=== PATIENT | female | born 1965 | race Caucasian/White ===

== ENCOUNTER 2016-09-06 19:14 | Emergency (ER) | payer MEDICAID ==
[~2016-09-06] VITALS: Ht 165.1 cm; Wt 34.5 kg
[2016-09-06 19:25] VITALS: BP 106/38
[2016-09-06 20:02] LABS: Urine Bilirubin Negative (Negative); Urine Blood Negative /uL (Negative); Urine Color Yellow (Yellow); Urine Glucose Normal (Normal); Urine Ketone Negative (Negative); Urine Nitrite Negative (Negative); Urine RBC <1 /hpf (0 - 4); Urine Urobilinogen Normal (Negative)
[2016-09-06 20:20] LABS: Basophils # (auto) 0.1 uL; Basophils % (auto) 0.6 % (0.0-2.0); DEFINITIVE VIEW TRANSMISSION; Eosinophils # (auto) 0.1 uL; Eosinophils % (auto) 0.8 % (0.0-7.0); Hematocrit 40.1 % (36.0-46.0); Hemoglobin 13.1 g/dL (12.2-16.2); Lymphocytes # (auto) 7.9 uL; Lymphocytes % (auto) 54.7 % (10.0-50.0); Mean Corpuscular Hemoglobin 30.8 pg (28.0-32.0); Mean Corpuscular Hgb Conc. 32.7 g/dL (32.0-36.0); Mean Platelet Volume 8.2 fL (7.4-10.4); Monocytes # (auto) 1.1 uL; Neutrophils # (auto) 5.2 uL; Neutrophils % (auto) 35.9 % (37.0-80.0); Platelet Count (auto) 423 10^3/uL (140-450); Red Cell Distribution Width 14.8 % (11.6-16.0); White Blood Cell 14.4 10^3/uL (4.4-10.8)
[2016-09-06 20:23] LABS: INR 0.91 (0.9-1.15); Partial Thromboplastin Time 28.2 sec (22.64-33.71); Prothrombin Time 9.8 sec (9.37-12.3)
[2016-09-06 20:30] LABS: Anion Gap 10 (5-15); Aspartate Aminotransferase 16 U/L (15-37); BUN/Creatinine Ratio 13.7; Blood Urea Nitrogen 14 mg/dL (7-18); Calcium 8.8 mg/dL (8.5-10.1); Carbon Dioxide 29 mmol/L (21-32); Chloride 107 mmol/L (98-107); GFR African American 73 mL/min; GFR Non-African American 60 mL/min; Glucose 94 mg/dL (74-106); Magnesium 2.3 mg/dL (1.6-2.6); Potassium 4.2 mmol/L (3.5-5.1); Sodium 146 mmol/L (136-145)
[2016-09-06 20:35] LABS: Alkaline Phosphatase 138 U/L (45-117); Bilirubin, Total < 0.1 mg/dL (0.2-1.0); Total Protein 7.8 g/dL (6.4-8.2)
== END 2016-09-07 00:07 | disposition left against medical advice (07) ==
LOC: ER 19:14
DX: R07.9 Chest pain, unspecified (principal); Z53.21 Procedure and treatment not carried out due to patient leaving prior to being seen by health care provider
CPT/HCPCS: 36415; 71020; 80053; 81001; 83735; 84443; 84484; 84702; 85025; 85610; 85730; 93005

== ENCOUNTER 2018-05-12 10:26 | Emergency (ER) | payer MEDICAID ==
[~2018-05-12] VITALS: Ht 165.1 cm; Wt 40.8 kg
[2018-05-12 10:38] VITALS: BP 113/67
[2018-05-12 11:30] LABS: Urine Bacteria MOD /hpf (None Seen); Urine Blood Negative /uL (Negative); Urine Hyaline Cast FEW /lpf (0 - 2); Urine Mucus FEW (None Seen); Urine Specific Gravity 1.014 (1.001-1.035); Urine WBC 67 /hpf (0 - 5)
== END 2018-05-12 12:47 | disposition home or self-care (01) ==
LOC: ER 10:26
DX: J44.9 Chronic obstructive pulmonary disease, unspecified (principal); N39.0 Urinary tract infection, site not specified; I48.91 Unspecified atrial fibrillation; F17.200 Nicotine dependence, unspecified, uncomplicated; Z88.0 Allergy status to penicillin; Z59.0 Homelessness
CPT/HCPCS: 71046; 72100; 81001

== ENCOUNTER 2018-06-14 10:15 | Inpatient (IN) | payer MEDICAID ==
[~2018-06-14] VITALS: Ht 152.4 cm; Wt 40.6 kg
[2018-06-14] MEDS ORDERED: ALBUTEROL SULF 2.5 MG/0.5ML(0.5%) NEB SOLN HHN ONE (10:30)
[2018-06-14] MEDS ORDERED: methylPREDNISolone SOD SUCC 125 MG/2 ML VL IV ONE (10:30)
[2018-06-14] MEDS ORDERED: IPRATROPIUM BROM 0.5 MG/2.5ML INH SOL HHN ONE (10:30)
[2018-06-14] MEDS ORDERED: ACETAMINOPHEN 500 MG TAB PO PRN (11:30)
[2018-06-14] MEDS ORDERED: NITROGLYCERIN 0.4 MG SL TAB SL PRN (11:30)
[2018-06-14] MEDS ORDERED: HYDROcodone-ACET 5/325MG TAB PO PRN (11:30)
[2018-06-14] MEDS ORDERED: OSELTAMIVIR 75 MG CAP PO ONE (11:30)
[2018-06-14] MEDS ORDERED: LACTULOSE 20Gm/30ML SOLN PO PRN (11:30)
[2018-06-14] MEDS ORDERED: MORPHINE SULFATE 10 MG/ML INJ 1ML SDV IV PRN ×2 (11:30)
[2018-06-14] MEDS ORDERED: LORazepam 0.5 MG TAB PO PRN (11:30)
[2018-06-14] MEDS ORDERED: PROMETHAZINE HCL 25 MG/ML 1ML IV PRN (11:30)
[2018-06-14] MEDS ORDERED: TEMAZEPAM 15 MG CAP PO PRN (11:30)
[2018-06-14] MEDS ORDERED: ALBUTEROL SULF 2.5 MG/0.5ML(0.5%) NEB SOLN NEB PRN (11:30)
[2018-06-14 11:31] LABS: Basophils # (auto) 0.1 uL; Basophils % (auto) 0.4 % (0.0-2.0); Eosinophils # (auto) 0 uL; Hematocrit 33.1 % (36.0-46.0); Hemoglobin 10.4 g/dL (12.2-16.2); Lymphocytes # (auto) 1.5 uL; Lymphocytes % (auto) 8.3 % (10.0-50.0); Mean Corpuscular Hemoglobin 30.6 pg (28.0-32.0); Mean Corpuscular Hgb Conc. 31.3 g/dL (32.0-36.0); Mean Corpuscular Volume 97.8 fL (80.0-100.0); Monocytes # (auto) 0.9 uL; Monocytes % (auto) 4.7 % (0.0-12.0); Neutrophils % (auto) 86.6 % (37.0-80.0); Platelet Count (auto) 387 10^3/uL (140-450); Red Blood Cells 3.39 10^6/uL (4.0-5.20); Red Cell Distribution Width 15.4 % (11.8-14.3); White Blood Cell 18.4 10^3/uL (4.4-10.8)
[2018-06-14 11:45] LABS: Albumin 2.7 g/dL (3.4-5.0); Calcium 8.4 mg/dL (8.5-10.1); Magnesium 2.5 mg/dL (1.6-2.6); Potassium 4.3 mmol/L (3.5-5.1)
[2018-06-14 11:48] LABS: Lactic Acid w/Reflex 2.6 mmol/L (0.4-2.0)
[2018-06-14 11:52] LABS: BUN/Creatinine Ratio 27.7; Bilirubin, Total 0.7 mg/dL (0.2-1.0); Total Protein 7.2 g/dL (6.4-8.2)
[2018-06-14] MEDS: IPRATROPIUM BROM 0.5 MG/2.5ML INH SOL NEB SCH ×2 (12:04→19:12)
[2018-06-14] MEDS: ALBUTEROL SULF 2.5 MG/0.5ML(0.5%) NEB SOLN NEB SCH ×2 (12:04→19:12)
[2018-06-14] MEDS: SODIUM CHLORIDE 0.9% 1,000 ML IV SCH (12:33)
[2018-06-14] MEDS: DOXYCYCLINE 100MG/250ML 250 ML IV SCH ×2 (12:34→23:53)
[2018-06-14] MEDS: methylPREDNISolone SOD SUCC 40 MG/ML VL IV SCH ×3 (12:34→23:54)
--- NOTE | 2018-06-14 18:30 | NUR ---
Telemetry admit from ER FLACA FLAHERTY admitted to Telemetry unit after SBAR received. Patient oriented to Laura Blue RN primary RN, unit, room, bed, and unit policies regarding patient care and visiting hours. Patient now on continuous telemetry monitoring, tele box # [id number] and telemetry reading on arrival to unit is sinus tach 104. Patient placed on bedside oxygen, weighed by bedscale and encouraged to call if they need something. All questions and concerns addressed, patient verbalized understanding. Note:
--- NOTE | 2018-06-14 18:35 | NUR ---
called lab to send a influenza swab.
[2018-06-14 20:00] VITALS: BP 86/66
[2018-06-14] MEDS ORDERED: OSELTAMIVIR 75 MG CAP PO SCH (22:00)
[2018-06-14 22:14] VITALS: BP 96/53
[2018-06-15] MEDS: ALBUTEROL SULF 2.5 MG/0.5ML(0.5%) NEB SOLN NEB SCH ×4 (01:37→19:24)
[2018-06-15] MEDS: IPRATROPIUM BROM 0.5 MG/2.5ML INH SOL NEB SCH ×4 (01:37→19:24)
[2018-06-15] MEDS ORDERED: PNEUMOCOCCAL VACC POLYS 25 MCG/0.5 ML VIAL IM ONE (03:45)
[2018-06-15] MEDS ORDERED: INFLUENZA QUAD 2018-2019 0.5 ML SYRG IM ONE (03:45)
--- NOTE | 2018-06-15 04:25 | NUR ---
Collected influenza A&B, MRSA sample and sent to lab via bullet.
[2018-06-15 05:00] VITALS: BP 89/52
[2018-06-15] MEDS: SODIUM CHLORIDE 0.9% 1,000 ML IV SCH ×3 (05:20→17:21)
[2018-06-15] MEDS: methylPREDNISolone SOD SUCC 40 MG/ML VL IV SCH ×4 (06:13→23:44)
--- NOTE | 2018-06-15 06:20 | NUR ---
collected respiratory culture and sent to lab via bullet.
[2018-06-15 09:00] VITALS: BP 95/50
[2018-06-15] MEDS: ENOXAPARIN SOD 40 MG/0.4 ML SYRINGE SC SCH (10:00)
[2018-06-15] MEDS: DOXYCYCLINE 100MG/250ML 250 ML IV SCH ×2 (11:20→23:43)
--- NOTE | 2018-06-15 11:42 | NUR ---
IV removal/ insertion IV access obtained, via clean sterile technique by inserting 22 gauge catheter at the right forearm after 2 attempts. IV secured properly. No trauma to site. Patient tolerated well. IV removal IV to left arm DC'd with clean sterile technique, catheter fully intact. Pressure dressing applied to site. Patient tolerated well.
--- NOTE | 2018-06-15 12:30 | NUR ---
Decreased liter flow to 2 l/m Nasal cannula.
[2018-06-15 13:00] VITALS: BP 85/51
--- NOTE | 2018-06-15 16:50 | NUR ---
PATIENT ROUNDS PATIENT SITTING IN BED NO S/S OF DISTRESS OR SHORTNESS OF BREATH. PATIENT DENIES FEELING LIGHTHEADED OR DIZZY. PATIENT EDUCATED AND INSTRUCTED TO PRESS CALL LIGHT IF FEELING LIGHTHEADED OR DIZZY. PATIENT EDUCATED ON GETTING UP SLOWLY FROM BED. WILL CONTINUE TO MONITOR.
[2018-06-15 17:00] VITALS: BP 84/51
--- NOTE | 2018-06-15 18:39 | NUR ---
OXYGEN HUMIDIFIER APPLIED TO OXYGEN DUE TO PATIENT STATING HER NOSE BLEEDS WHEN SHE BLOWS IT. NO S/S OF DISTRESS NOTED AT THIS TIME.
--- NOTE | 2018-06-15 19:12 | NUR ---
CLOSING NOTE SHIFT REPORT GIVEN TO LEASE PURCHASE DRIVER NURSEALEXIA. PATIENT IN BED, CALL LIGHT WITHIN REACH. NO S/S OF DISTRESS. IV PATENT AND RUNNING, OXYGEN ON.
[2018-06-15 21:30] VITALS: BP 86/58
--- NOTE | 2018-06-15 23:45 | NUR ---
patient wanted to take shower tomorrow educated patient about reason to a doctor's order first. will inform to day shift RN
[2018-06-16] MEDS: IPRATROPIUM BROM 0.5 MG/2.5ML INH SOL NEB SCH ×4 (01:04→19:17)
[2018-06-16] MEDS: ALBUTEROL SULF 2.5 MG/0.5ML(0.5%) NEB SOLN NEB SCH ×4 (01:04→19:17)
[2018-06-16 05:00] VITALS: BP 89/57
[2018-06-16] MEDS: methylPREDNISolone SOD SUCC 40 MG/ML VL IV SCH ×3 (06:03→21:49)
[2018-06-16] MEDS: SODIUM CHLORIDE 0.9% 1,000 ML IV SCH ×2 (06:03→16:48)
[2018-06-16 07:34] LABS: Basophils # (auto) 0 uL; Eosinophils # (auto) 0 uL; Hemoglobin 7.8 g/dL (12.2-16.2); Mean Corpuscular Hgb Conc. 32.5 g/dL (32.0-36.0); Mean Corpuscular Volume 94.7 fL (80.0-100.0)
[2018-06-16 07:38] LABS: Basophils % (auto) 0.2 % (0.0-2.0); Lymphocytes % (auto) 4.4 % (10.0-50.0); Mean Corpuscular Hemoglobin 30.7 pg (28.0-32.0); Monocytes # (auto) 0.7 uL; Neutrophils % (auto) 92.4 % (37.0-80.0); Platelet Count (auto) 328 10^3/uL (140-450); Red Blood Cells 2.54 10^6/uL (4.0-5.20); Red Cell Distribution Width 14.8 % (11.8-14.3); White Blood Cell 21.7 10^3/uL (4.4-10.8)
[2018-06-16 07:41] LABS: BUN/Creatinine Ratio 26.5; Calcium 8.5 mg/dL (8.5-10.1); Potassium 4.1 mmol/L (3.5-5.1)
--- NOTE | 2018-06-16 08:00 | NUR ---
Patient requesting to shower. Patient educated and given materials for bed bath due to security monitor. Patient verbalized understanding. Will inform MD of patient request.
[2018-06-16 09:00] VITALS: BP 85/54
[2018-06-16] MEDS: ENOXAPARIN SOD 40 MG/0.4 ML SYRINGE SC SCH (09:32)
--- NOTE | 2018-06-16 10:47 | NUR ---
PATIENT UPSET MEAL DOES NOT INCLUDE COLA. DIETARY REQUEST SENT.
[2018-06-16] MEDS: DOXYCYCLINE 100MG/250ML 250 ML IV SCH ×2 (12:10→23:29)
--- NOTE | 2018-06-16 12:16 | NUR ---
Patient agitated she has not received soda. Patient stating she has a caffeine headache. Patient offered coffee. Patient states she doesn't drink coffee. Patient offered medication for her headache. Patient refusing medication at this time. Patient stating "the lunch tray is going to go flying" if her order is not correct and there is no soda with lunch. Charge nurse aware. Will continue to monitor. Addendum: 06/16/18 at 1225 by KALEE JETT RN Patient stating her blood pressure is low because she is not eating salt. Patient educated on cardiac diet. Will continue to monitor.
[2018-06-16 12:31] VITALS: BP 92/66
--- NOTE | 2018-06-16 13:01 | NUR ---
Patient spoke with dietary about meal orders and soda. Patient given sandwich and satisfied at this time. Will continue to monitor.
[2018-06-16 16:43] VITALS: BP 89/44
--- NOTE | 2018-06-16 18:51 | NUR ---
CLOSING NOTE PATIENT IN BED, LOW LOCK POSITION, CALL LIGHT WITHIN REACH. IV PATENT AND RUNNING. OXYGEN ON. STOOL COLLECTION MATERIALS AT BEDSIDE, INFORMED SALVAGE WINDER AND INSPECTOR NURSE, PATIENT, AND OUTDOOR ADVERTISING LEASING AGENT OF ORDER FRO STOOL SAMPLE. NO S/S OF DISTRESS, PAIN, OR SHORTNESS OF BREATH.
--- NOTE | 2018-06-16 21:40 | NUR ---
Educated patient about way to collect STOOL OCCULT Blood. Patient verbalized understanding. Patient reported she is not able to provide stool sample at this time.
[2018-06-16 21:52] VITALS: BP 99/57
[2018-06-17] VITALS (7 sets, daily range): BP systolic 92–114; BP diastolic 52–68
[2018-06-17] MEDS: ALBUTEROL SULF 2.5 MG/0.5ML(0.5%) NEB SOLN NEB SCH ×4 (00:31→19:38)
[2018-06-17] MEDS: IPRATROPIUM BROM 0.5 MG/2.5ML INH SOL NEB SCH ×4 (00:31→19:38)
[2018-06-17] MEDS: SODIUM CHLORIDE 0.9% 1,000 ML IV SCH ×2 (06:08→07:13)
--- NOTE | 2018-06-17 06:45 | NUR ---
IV insertion IV access obtained, via clean sterile technique by inserting 22 gauge catheter at Left Forearm after 1 attempt. IV secured properly. No trauma to site. Patient tolerated well.
[2018-06-17 06:53] LABS: Basophils # (auto) 0 uL; Basophils % (auto) 0.1 % (0.0-2.0); Eosinophils # (auto) 0 uL; Red Cell Distribution Width 14.9 % (11.8-14.3)
[2018-06-17 06:56] LABS: Hematocrit 25.4 % (36.0-46.0); Hemoglobin 8.2 g/dL (12.2-16.2); Mean Corpuscular Hemoglobin 30.8 pg (28.0-32.0); Mean Corpuscular Hgb Conc. 32.4 g/dL (32.0-36.0); Monocytes # (auto) 0.6 uL; Monocytes % (auto) 4.4 % (0.0-12.0); Neutrophils # (auto) 12.1 uL; Neutrophils % (auto) 88.5 % (37.0-80.0); Platelet Count (auto) 356 10^3/uL (140-450); Red Blood Cells 2.67 10^6/uL (4.0-5.20); White Blood Cell 13.7 10^3/uL (4.4-10.8)
[2018-06-17 07:12] LABS: BUN/Creatinine Ratio 23.4; Calcium 8.4 mg/dL (8.5-10.1); Potassium 4.2 mmol/L (3.5-5.1)
--- NOTE | 2018-06-17 07:42 | NUR ---
opening patient asleep, in bed, bed in lowest position, call light within reach. No distress noted at this time Blood culture negative resp cult positive Occult blood still pending for patient to give sample influenza a & b negative mrsa negative awaiting SS consult, possible home o2 needed per patient current troponin 0.299 lactic acid 2.5 trending down wbc 13.7 trending down hgb 8.2 trending up phosphatase 148 albumin 2.7
[2018-06-17] MEDS: ENOXAPARIN SOD 40 MG/0.4 ML SYRINGE SC SCH (10:00)
[2018-06-17] MEDS: methylPREDNISolone SOD SUCC 40 MG/ML VL IV SCH ×2 (10:13→23:43)
[2018-06-17] MEDS: DOXYCYCLINE 100MG/250ML 250 ML IV SCH ×2 (11:05→23:44)
--- NOTE | 2018-06-17 14:27 | NUR ---
FAXED ORDER, H&P LABS, MEDS ABG FOR MED NEB AND 02 TO [facility] PH # [phone] AND [facility] FAX # [phone]
--- NOTE | 2018-06-17 17:50 | NUR ---
VIKTOR CALLING SHE GAVE ME A PHONE NUMBER FOR THE COMPANY USED "[email or web address]" TO CALL AND CHECK ON THE STATUS. [phone]
--- NOTE | 2018-06-17 17:58 | NUR ---
CALLING [facility] TALKED TO TECH, SHE NOTED THEY WILL NEED AUTHORIZATION PRIOR FROM [facility]. THEY WILL NEED THIS PRIOR TO DELIVERING ANY MEDICAL EQUIPMENT NEEDED
--- NOTE | 2018-06-17 18:03 | NUR ---
TALKING TO FLOWERS SALESPERSON LIFT MECHANIC TALKED TO VIKTOR, SHE NOTED THERE WAS A TECHNICAL ISSUE MOST LIKELY WITH THE PORTAL WITH [facility], THE AUTHORIZATION WILL MOST LIKELY OCCUR TOMORROW AND TO LET THE MD KNOW, WHAT THE ISSUE WAS.
--- NOTE | 2018-06-17 18:55 | NUR ---
closing patient in bed, bed in lowest position, call light within reach. no distress noted at this time awaiting authorization from [facility] for the medical equipment will endorse care to noc nurse
--- NOTE | 2018-06-17 19:20 | NUR ---
Opening Shift Note Assumed care of patient, awake and alert. No S/S of distress/SOB or pain. Instructed on POC and to call for assist PRN, will continue to monitor for changes. Pt talkative, anxious about poss discharge though told by 3 different health team persons that discharge is not occuring tonight. Bed in low position with HOB in [place]. O2 per n/c at 3lpm. Pt avoiding care of self though within her power, ex. covering self with linens. Call light at her side.
[2018-06-18] MEDS: IPRATROPIUM BROM 0.5 MG/2.5ML INH SOL NEB SCH ×3 (00:46→11:31)
[2018-06-18] MEDS: ALBUTEROL SULF 2.5 MG/0.5ML(0.5%) NEB SOLN NEB SCH ×3 (00:46→11:31)
--- NOTE | 2018-06-18 02:30 | NUR ---
Pt c/o pain in L ant arm after IV abx. completely infused. Sl puffiness proximal to site, but strong blood return. This RN suggested and supplied hot pack to place on IV site in case from irritation of IV abx. Pt resistant desiring that PIV be discontinued. PIV discontinued in entirety. Pt ady well. 22g cath used to start new PIV on post R hand. Pt ayd well.
[2018-06-18 04:57] VITALS: BP 111/66
[2018-06-18] MEDS: SODIUM CHLORIDE 0.9% 1,000 ML IV SCH ×2 (06:44→08:58)
--- NOTE | 2018-06-18 07:40 | NUR ---
opening patient in bed, asleep, bed in lowest position, call light within reach. No distress noted at this time. Will f/u with morning assessment. Will await case management for authorization for the medical equipment, prior to discharging the patient.
--- NOTE | 2018-06-18 08:00 | NUR ---
stool sample sent to lab, for occult blood
--- NOTE | 2018-06-18 08:40 | NUR ---
SHILPA IRELAND STUDIO CONTROL OPERATOR
[2018-06-18] MEDS: methylPREDNISolone SOD SUCC 40 MG/ML VL IV SCH (08:57)
[2018-06-18] MEDS: ENOXAPARIN SOD 40 MG/0.4 ML SYRINGE SC SCH (08:58)
[2018-06-18 09:00] VITALS: BP 115/74
--- NOTE | 2018-06-18 09:09 | NUR ---
RECALLED AND REFAXED TO [facility]. SPOKE TO BECCA IN UR AND SHE SAID SHE WILL PROCESS ORDER EVEN THOUGH SHE WAS READING ORDER TO ME THAT I SENT YESTERDAY. SHE WILL CALL ME AND [facility]
[2018-06-18] MEDS: DOXYCYCLINE 100MG/250ML 250 ML IV SCH (11:15)
[2018-06-18 12:53] VITALS: BP 123/81
--- NOTE | 2018-06-18 13:04 | NUR ---
BECCA FROM [facility] CALLED ME BACK AND STATED SHE HAS FAXED AND GAVE AUTH TO [facility] SO [facility] SHOULD BE CONTACTING PT.
--- NOTE | 2018-06-18 13:35 | NUR ---
CALLED [facility] AND TERESO AT [facility] STATED O2 TO BE DELIVERED BETWEEN 1400 AND 1600 HRS TODAY
--- NOTE | 2018-06-18 15:50 | NUR ---
[facility] AND [facility] DID NOT SEND/GET AUTH FOR NEBULIZER. I INFORMED THEM THAT MED NEB MACHINE ON ORDER I FAXED YESTERDAY TO BOTH AGENCIES. I NOW HAVE AUTH FOR NEBULIZER # [id number] AND THIS WAS GIVEN TO [facility] TO VERIFY FOR MACHINE. VERIFIED PTS ADDRESS FOR DELIVERY VIA PRIMARY RN WELL PT'S PHONE #. MED NEB WILL BE DELIVERED TO THE VERIFIED ADDRESS
--- NOTE | 2018-06-18 16:10 | NUR ---
closing Discharge instructions given as ordered. Encourage to follow up with PMD as instructed. All questions and concerns addressed. Patient verbalized understanding. needed vaccines given. IV removed with catheter intact, pressure dressing applied. Telemetry unit returned to ICU. Patient taken to vehicle via wheelchair with all personal belongings, accompanied by staff and friends. No distress noted at time of departure.
== END 2018-06-18 16:10 | disposition home or self-care (01) | DRG 133 ==
LOC: EDBD 10:15 → ER 10:17 → TELE 11:28 → TELE-EAST 18:26
PROVIDERS: ADMIT Internal Medicine; ATTEND Internal Medicine
DX: J96.21 Acute and chronic respiratory failure with hypoxia (principal); N17.0 Acute kidney failure with tubular necrosis; E43 Unspecified severe protein-calorie malnutrition; Z99.81 Dependence on supplemental oxygen; R65.10 Systemic inflammatory response syndrome (SIRS) of non-infectious origin without acute organ dysfunction; J44.1 Chronic obstructive pulmonary disease with (acute) exacerbation; I48.91 Unspecified atrial fibrillation; N18.9 Chronic kidney disease, unspecified; D64.9 Anemia, unspecified; I70.0 Atherosclerosis of aorta; F17.200 Nicotine dependence, unspecified, uncomplicated; Z59.0 Homelessness; Z90.89 Acquired absence of other organs; Z88.0 Allergy status to penicillin; Z23 Encounter for immunization
CPT/HCPCS: 36415; 36600; 71045; 80048; 80053; 82270; 82805; 83605; 83735; 83880; 84484; 85025; 87040; 87070; 87081; 87205; 87804; 93005; 94640; 94761; 96361; 96365; 96375; 99291; G0378; J3490

== ENCOUNTER 2020-07-26 18:29 | Inpatient (IN) | payer MEDICAID ==
[~2020-07-26] VITALS: Ht 165.1 cm; Wt 44.4 kg
[2020-07-26] MEDS ORDERED: SUCCINYLCHOLINE CHLORIDE 20 MG/ML 10ML VIAL IV ONE ×2 (18:44→18:45)
[2020-07-26] MEDS ORDERED: ETOMIDATE (2MG/ML) 20ML VIAL IV ONE ×2 (18:44→18:45)
[2020-07-26] MEDS ORDERED: IPRATROPIUM BROM 0.5 MG/2.5ML INH SOL HHN ONE (18:45)
[2020-07-26] MEDS ORDERED: methylPREDNISolone SOD SUCC 125 MG/2 ML VL IV ONE (18:45)
[2020-07-26] MEDS ORDERED: ALBUTEROL SULF 2.5 MG/0.5ML(0.5%) NEB SOLN HHN ONE (18:45)
[2020-07-26] MEDS ORDERED: MIDAZOLAM DRIP 50 mg/50mL 50 ML IV ONE (18:49)
[2020-07-26] MEDS ORDERED: NOREPINEPHRINE 8 MG/250ML KIT 250 ML IV ONE (19:03)
[2020-07-26 19:05] LABS: Basophils # (auto) 0.2 10 ^3/uL (0-0.2); Basophils % (auto) 1.2 % (0.0-2.0); Eosinophils # (auto) 0.8 10 ^3/uL (0-0.8); Eosinophils % (auto) 5.4 % (0.0-7.0); Hematocrit 42.2 % (36.0-46.0); Hemoglobin 13.7 g/dL (12.2-16.2); Lymphocytes # (auto) 5.8 10 ^3/uL (0.4-5.4); Lymphocytes % (auto) 37.6 % (10.0-50.0); Mean Corpuscular Hemoglobin 31.4 pg (28.0-32.0); Mean Corpuscular Hgb Conc. 32.4 g/dL (32.0-36.0); Mean Corpuscular Volume 96.9 fL (80.0-100.0); Monocytes # (auto) 1.2 10 ^3/uL (0-1.3); Monocytes % (auto) 7.9 % (0.0-12.0); Neutrophils # (auto) 7.4 10 ^3/uL (1.6-8.6); Neutrophils % (auto) 47.9 % (37.0-80.0); Nucleated Red Blood Cells % 0.1 %; Red Blood Cells 4.35 10^6/uL (4.0-5.20); Red Cell Distribution Width 14.7 % (11.8-14.3); White Blood Cell 15.5 10^3/uL (4.4-10.8)
[2020-07-26] MEDS: NOREPINEPHRINE 8 MG/250ML KIT 250 ML IV SCH ×2 (19:15→21:30)
[2020-07-26] MEDS: MIDAZOLAM DRIP 50 mg/50mL 50 ML IV SCH ×3 (19:15→21:30)
[2020-07-26] MEDS ORDERED: LIDOCAINE 2% (LOCAL ANESTH.) PF 5ml SDV ONE (19:16)
[2020-07-26 19:33] LABS: Alanine Aminotransferase 22 U/L (13-56); Albumin 3.7 g/dL (3.4-5.0); Anion Gap 5 (5-15); Aspartate Aminotransferase 21 U/L (15-37); BUN/Creatinine Ratio 5.1; Blood Urea Nitrogen 5 mg/dL (7-18); Calcium 9.1 mg/dL (8.5-10.1); Carbon Dioxide 29 mmol/L (21-32); Chloride 106 mmol/L (98-107); GFR African American 75 mL/min; GFR Non-African American 62 mL/min; Glucose 199 mg/dL (74-106); Potassium 4.5 mmol/L (3.5-5.1); Sodium 140 mmol/L (136-145)
[2020-07-26 19:38] LABS: Alkaline Phosphatase 159 U/L (45-117); Bilirubin, Total 0.3 mg/dL (0.2-1.0); Total Protein 7.5 g/dL (6.4-8.2)
[2020-07-26] MEDS ORDERED: SODIUM BICARBONATE 8.4 % INJ 50ML VIAL IV ONE (20:45)
[2020-07-26] MEDS ORDERED: MORPHINE SULFATE INJECTION 2 MG/ML SYRG IV PRN (21:30)
[2020-07-26] MEDS ORDERED: NITROGLYCERIN 0.4 MG SL TAB SL PRN (21:30)
[2020-07-26] MEDS: methylPREDNISolone SOD SUCC 125 MG/2 ML VL IV SCH (22:00)
[2020-07-26 22:09] LABS: Basophils # (auto) 0 10 ^3/uL (0-0.2); Basophils % (auto) 0.2 % (0.0-2.0); Eosinophils # (auto) 0.1 10 ^3/uL (0-0.8); Eosinophils % (auto) 0.5 % (0.0-7.0); Hematocrit 37.1 % (36.0-46.0); Hemoglobin 12.2 g/dL (12.2-16.2); Lymphocytes # (auto) 1.8 10 ^3/uL (0.4-5.4); Lymphocytes % (auto) 10.7 % (10.0-50.0); Mean Corpuscular Hemoglobin 31.9 pg (28.0-32.0); Mean Corpuscular Volume 96.7 fL (80.0-100.0); Monocytes # (auto) 0.5 10 ^3/uL (0-1.3); Monocytes % (auto) 3.2 % (0.0-12.0); Neutrophils # (auto) 14.1 10 ^3/uL (1.6-8.6); Neutrophils % (auto) 85.4 % (37.0-80.0); Nucleated Red Blood Cells % 0.1 %; Red Blood Cells 3.84 10^6/uL (4.0-5.20); Red Cell Distribution Width 14.4 % (11.8-14.3); White Blood Cell 16.4 10^3/uL (4.4-10.8)
[2020-07-26 22:16] LABS: Urine Bacteria FEW /hpf (None Seen); Urine Blood TRACE /uL (Negative); Urine Hyaline Cast FEW /lpf (0 - 2); Urine Specific Gravity 1.005 (1.001-1.035); Urine WBC <1 /hpf (0 - 5)
[2020-07-26 22:26] LABS: Albumin 3.3 g/dL (3.4-5.0); Calcium 8.3 mg/dL (8.5-10.1)
[2020-07-26 22:30] LABS: BUN/Creatinine Ratio 5.8; Bilirubin, Total 0.6 mg/dL (0.2-1.0); Total Protein 6.9 g/dL (6.4-8.2)
[2020-07-27] VITALS (94 sets, daily range): BP systolic 84–159; BP diastolic 46–99
[2020-07-27 02:20] LABS: Basophils # (auto) 0 10 ^3/uL (0-0.2); Basophils % (auto) 0.1 % (0.0-2.0); Eosinophils # (auto) 0 10 ^3/uL (0-0.8); Hematocrit 36.3 % (36.0-46.0); Hemoglobin 12.5 g/dL (12.2-16.2); Lymphocytes # (auto) 1.2 10 ^3/uL (0.4-5.4); Lymphocytes % (auto) 7.4 % (10.0-50.0); Mean Corpuscular Hemoglobin 32.7 pg (28.0-32.0); Mean Corpuscular Hgb Conc. 34.3 g/dL (32.0-36.0); Mean Corpuscular Volume 95.4 fL (80.0-100.0); Monocytes # (auto) 0.3 10 ^3/uL (0-1.3); Monocytes % (auto) 2.2 % (0.0-12.0); Neutrophils # (auto) 14.2 10 ^3/uL (1.6-8.6); Neutrophils % (auto) 90.3 % (37.0-80.0); Red Blood Cells 3.81 10^6/uL (4.0-5.20); Red Cell Distribution Width 14.1 % (11.8-14.3); White Blood Cell 15.8 10^3/uL (4.4-10.8)
[2020-07-27 02:40] LABS: Albumin 3.2 g/dL (3.4-5.0); BUN/Creatinine Ratio 7.1; Calcium 8.9 mg/dL (8.5-10.1)
[2020-07-27 02:43] LABS: Bilirubin, Total 0.5 mg/dL (0.2-1.0); Total Protein 6.7 g/dL (6.4-8.2)
[2020-07-27] MEDS: methylPREDNISolone SOD SUCC 125 MG/2 ML VL IV SCH ×3 (06:19→21:16)
[2020-07-27] MEDS ORDERED: fentaNYL Drip 2500mCg/250mlNS 250 ML IV ONE (07:48)
[2020-07-27] MEDS: fentaNYL Drip 2500mCg/250mlNS 250 ML IV SCH (08:19)
[2020-07-27] MEDS: PANTOPRAZOLE 40 MG/10 ML VIAL INJ IV SCH (09:28)
[2020-07-27] MEDS: cefTRIAXone 1GM/50ML D5W 50 ML IV SCH (09:29)
[2020-07-27] MEDS: ENOXAPARIN SOD 40 MG/0.4 ML SYRINGE SC SCH (09:29)
[2020-07-27] MEDS: AZITHROMYCIN 500MG/ 250ML 250 ML IV SCH (09:29)
[2020-07-27] MEDS: PROPOFOL 100 ML IV SCH ×2 (12:51→18:49)
[2020-07-27] MEDS: NOREPINEPHRINE 8 MG/250ML KIT 250 ML IV SCH ×2 (17:27→21:16)
[2020-07-27] MEDS: MIDAZOLAM DRIP 50 mg/50mL 50 ML IV SCH (17:30)
[2020-07-28] VITALS (103 sets, daily range): BP systolic 97–128; BP diastolic 47–74
[2020-07-28 02:41] LABS: Basophils # (auto) 0 10 ^3/uL (0-0.2); Basophils % (auto) 0.2 % (0.0-2.0); Eosinophils # (auto) 0 10 ^3/uL (0-0.8); Eosinophils % (auto) 0.1 % (0.0-7.0); Hematocrit 36.9 % (36.0-46.0); Hemoglobin 12.3 g/dL (12.2-16.2); Lymphocytes # (auto) 1.9 10 ^3/uL (0.4-5.4); Mean Corpuscular Hemoglobin 31.4 pg (28.0-32.0); Mean Corpuscular Hgb Conc. 33.2 g/dL (32.0-36.0); Mean Corpuscular Volume 94.5 fL (80.0-100.0); Monocytes # (auto) 1.1 10 ^3/uL (0-1.3); Monocytes % (auto) 4.7 % (0.0-12.0); Neutrophils # (auto) 20.9 10 ^3/uL (1.6-8.6); Red Cell Distribution Width 13.9 % (11.8-14.3)
[2020-07-28 02:58] LABS: Albumin 3.1 g/dL (3.4-5.0); Calcium 9.2 mg/dL (8.5-10.1); Potassium 4.5 mmol/L (3.5-5.1)
[2020-07-28 03:00] LABS: BUN/Creatinine Ratio 14.1
[2020-07-28 03:03] LABS: Bilirubin, Total 0.2 mg/dL (0.2-1.0); Total Protein 6.4 g/dL (6.4-8.2)
[2020-07-28] MEDS: methylPREDNISolone SOD SUCC 125 MG/2 ML VL IV SCH ×3 (05:57→21:21)
[2020-07-28] MEDS: fentaNYL Drip 2500mCg/250mlNS 250 ML IV SCH ×2 (08:00→17:35)
[2020-07-28] MEDS: PANTOPRAZOLE 40 MG/10 ML VIAL INJ IV SCH (09:47)
[2020-07-28] MEDS: cefTRIAXone 1GM/50ML D5W 50 ML IV SCH (09:48)
[2020-07-28] MEDS: AZITHROMYCIN 500MG/ 250ML 250 ML IV SCH (09:49)
[2020-07-28] MEDS: ENOXAPARIN SOD 40 MG/0.4 ML SYRINGE SC SCH (09:50)
[2020-07-28] MEDS: MIDAZOLAM DRIP 50 mg/50mL 50 ML IV SCH ×2 (19:00→21:01)
[2020-07-28] MEDS: NOREPINEPHRINE 8 MG/250ML KIT 250 ML IV SCH ×2 (19:09)
[2020-07-28] MEDS: QUEtiapine FUMARATE 25 MG TAB PO SCH (21:23)
[2020-07-29] VITALS (95 sets, daily range): BP systolic 82–151; BP diastolic 36–91
[2020-07-29 02:33] LABS: Basophils # (auto) 0 10 ^3/uL (0-0.2); Basophils % (auto) 0.2 % (0.0-2.0); Eosinophils # (auto) 0 10 ^3/uL (0-0.8); Hematocrit 36.4 % (36.0-46.0); Hemoglobin 12.1 g/dL (12.2-16.2); Lymphocytes # (auto) 1.5 10 ^3/uL (0.4-5.4); Lymphocytes % (auto) 6.8 % (10.0-50.0); Mean Corpuscular Hemoglobin 31.3 pg (28.0-32.0); Mean Corpuscular Hgb Conc. 33.4 g/dL (32.0-36.0); Mean Corpuscular Volume 93.9 fL (80.0-100.0); Monocytes # (auto) 0.9 10 ^3/uL (0-1.3); Monocytes % (auto) 4.1 % (0.0-12.0); Neutrophils # (auto) 20.1 10 ^3/uL (1.6-8.6); Neutrophils % (auto) 88.9 % (37.0-80.0); Nucleated Red Blood Cells % 0.1 %; Red Blood Cells 3.87 10^6/uL (4.0-5.20); Red Cell Distribution Width 14.2 % (11.8-14.3); White Blood Cell 22.6 10^3/uL (4.4-10.8)
[2020-07-29 02:55] LABS: Albumin 3.1 g/dL (3.4-5.0); BUN/Creatinine Ratio 23.5; Calcium 8.9 mg/dL (8.5-10.1); Potassium 4.8 mmol/L (3.5-5.1)
[2020-07-29 02:57] LABS: Bilirubin, Total 0.2 mg/dL (0.2-1.0); Total Protein 6.4 g/dL (6.4-8.2)
[2020-07-29] MEDS: methylPREDNISolone SOD SUCC 125 MG/2 ML VL IV SCH ×3 (05:20→21:43)
[2020-07-29] MEDS: PROPOFOL 100 ML IV SCH (07:37)
[2020-07-29] MEDS: PANTOPRAZOLE 40 MG/10 ML VIAL INJ IV SCH (07:49)
[2020-07-29] MEDS: cefTRIAXone 1GM/50ML D5W 50 ML IV SCH (07:49)
[2020-07-29] MEDS: QUEtiapine FUMARATE 25 MG TAB PO SCH ×2 (07:54→21:43)
[2020-07-29] MEDS: ENOXAPARIN SOD 40 MG/0.4 ML SYRINGE SC SCH (07:57)
[2020-07-29] MEDS: AZITHROMYCIN 500MG/ 250ML 250 ML IV SCH (10:27)
[2020-07-29] MEDS: MIDAZOLAM DRIP 50 mg/50mL 50 ML IV SCH ×2 (19:00→19:52)
[2020-07-29] MEDS: NOREPINEPHRINE 8 MG/250ML KIT 250 ML IV SCH ×2 (19:15→19:52)
[2020-07-29] MEDS ORDERED: guaiFENesin 200 MG/10 ML UD GT PRN (21:00)
[2020-07-30] VITALS (31 sets, daily range): BP systolic 96–138; BP diastolic 48–78
[2020-07-30] MEDS: methylPREDNISolone SOD SUCC 125 MG/2 ML VL IV SCH ×3 (05:10→22:36)
[2020-07-30 06:04] LABS: Basophils # (auto) 0.1 10 ^3/uL (0-0.2); Basophils % (auto) 0.3 % (0.0-2.0); Eosinophils # (auto) 0 10 ^3/uL (0-0.8); Eosinophils % (auto) 0.1 % (0.0-7.0); Hematocrit 35.3 % (36.0-46.0); Hemoglobin 11.8 g/dL (12.2-16.2); Lymphocytes # (auto) 1.4 10 ^3/uL (0.4-5.4); Lymphocytes % (auto) 7.6 % (10.0-50.0); Mean Corpuscular Hemoglobin 31.8 pg (28.0-32.0); Mean Corpuscular Hgb Conc. 33.5 g/dL (32.0-36.0); Mean Corpuscular Volume 94.8 fL (80.0-100.0); Monocytes # (auto) 1.4 10 ^3/uL (0-1.3); Monocytes % (auto) 7.2 % (0.0-12.0); Neutrophils % (auto) 84.8 % (37.0-80.0); Red Blood Cells 3.72 10^6/uL (4.0-5.20); Red Cell Distribution Width 13.7 % (11.8-14.3); White Blood Cell 18.9 10^3/uL (4.4-10.8)
[2020-07-30 06:22] LABS: Albumin 3.1 g/dL (3.4-5.0); Calcium 8.6 mg/dL (8.5-10.1); Potassium 4.9 mmol/L (3.5-5.1)
[2020-07-30 06:25] LABS: BUN/Creatinine Ratio 33.7; Bilirubin, Total 0.3 mg/dL (0.2-1.0); Total Protein 6.5 g/dL (6.4-8.2)
[2020-07-30] MEDS: PROPOFOL 100 ML IV SCH (08:00)
[2020-07-30] MEDS: fentaNYL Drip 2500mCg/250mlNS 250 ML IV SCH (08:00)
[2020-07-30] MEDS: ALBUTEROL SULF 2.5 MG/0.5ML(0.5%) NEB SOLN NEB SCH ×4 (08:03→22:15)
[2020-07-30] MEDS: IPRATROPIUM BROM 0.5 MG/2.5ML INH SOL NEB SCH ×4 (08:03→22:15)
[2020-07-30] MEDS: PANTOPRAZOLE 40 MG/10 ML VIAL INJ IV SCH (09:53)
[2020-07-30] MEDS: AZITHROMYCIN 500MG/ 250ML 250 ML IV SCH (09:53)
[2020-07-30] MEDS: QUEtiapine FUMARATE 25 MG TAB PO SCH ×2 (09:59→22:37)
[2020-07-30] MEDS: ENOXAPARIN SOD 40 MG/0.4 ML SYRINGE SC SCH (10:00)
[2020-07-30] MEDS: cefTRIAXone 1GM/50ML D5W 50 ML IV SCH (10:08)
[2020-07-30] MEDS ORDERED: NICOTINE 7MG/24HR TOPICAL PATCH TD ONE (11:45)
[2020-07-30] MEDS ORDERED: BECL80AE11 INH (18:09)
[2020-07-30] MEDS ORDERED: UMEC1INH INH (18:10)
[2020-07-30] MEDS: BUDESONIDE (INHALATION) 0.5 MG/2 ML NEB NEB SCH (22:15)
[2020-07-31] MEDS: IPRATROPIUM BROM 0.5 MG/2.5ML INH SOL NEB SCH ×6 (02:07→22:28)
[2020-07-31] MEDS: ALBUTEROL SULF 2.5 MG/0.5ML(0.5%) NEB SOLN NEB SCH ×6 (02:07→22:28)
[2020-07-31 05:10] VITALS: BP 94/58
[2020-07-31 05:48] LABS: Basophils # (auto) 0 10 ^3/uL (0-0.2); Basophils % (auto) 0.1 % (0.0-2.0); Eosinophils # (auto) 0 10 ^3/uL (0-0.8); Hematocrit 34.9 % (36.0-46.0); Hemoglobin 11.6 g/dL (12.2-16.2); Lymphocytes % (auto) 8.1 % (10.0-50.0); Mean Corpuscular Hemoglobin 31.1 pg (28.0-32.0); Mean Corpuscular Hgb Conc. 33.2 g/dL (32.0-36.0); Mean Corpuscular Volume 93.6 fL (80.0-100.0); Monocytes # (auto) 0.5 10 ^3/uL (0-1.3); Neutrophils % (auto) 87.8 % (37.0-80.0); Red Blood Cells 3.72 10^6/uL (4.0-5.20); Red Cell Distribution Width 13.7 % (11.8-14.3); White Blood Cell 12.5 10^3/uL (4.4-10.8)
[2020-07-31] MEDS: methylPREDNISolone SOD SUCC 125 MG/2 ML VL IV SCH ×3 (06:00→21:21)
[2020-07-31] MEDS: BUDESONIDE (INHALATION) 0.5 MG/2 ML NEB NEB SCH ×2 (06:13→18:13)
[2020-07-31 06:25] LABS: Potassium 4.3 mmol/L (3.5-5.1)
[2020-07-31 06:30] LABS: BUN/Creatinine Ratio 33.3
[2020-07-31 06:33] LABS: Bilirubin, Total 0.3 mg/dL (0.2-1.0)
[2020-07-31 09:00] VITALS: BP 95/53
[2020-07-31] MEDS: PANTOPRAZOLE 40 MG/10 ML VIAL INJ IV SCH (09:21)
[2020-07-31] MEDS: ENOXAPARIN SOD 40 MG/0.4 ML SYRINGE SC SCH (09:21)
[2020-07-31] MEDS: NICOTINE 7MG/24HR TOPICAL PATCH TD SCH (09:23)
[2020-07-31] MEDS: QUEtiapine FUMARATE 25 MG TAB PO SCH ×2 (09:23→21:21)
[2020-07-31] MEDS: AZITHROMYCIN 500MG/ 250ML 250 ML IV SCH (09:23)
[2020-07-31] MEDS: cefTRIAXone 1GM/50ML D5W 50 ML IV SCH (09:24)
[2020-07-31 13:00] VITALS: BP 109/60
[2020-07-31 16:58] VITALS: BP 111/75
[2020-07-31 22:00] VITALS: BP 109/66
[2020-08-01] MEDS: ALBUTEROL SULF 2.5 MG/0.5ML(0.5%) NEB SOLN NEB SCH ×6 (02:38→21:39)
[2020-08-01] MEDS: IPRATROPIUM BROM 0.5 MG/2.5ML INH SOL NEB SCH ×6 (02:38→21:39)
[2020-08-01 05:00] VITALS: BP 106/61
[2020-08-01 05:57] LABS: Basophils # (auto) 0 10 ^3/uL (0-0.2); Basophils % (auto) 0.1 % (0.0-2.0); Eosinophils # (auto) 0 10 ^3/uL (0-0.8); Hematocrit 35.1 % (36.0-46.0); Hemoglobin 11.4 g/dL (12.2-16.2); Lymphocytes # (auto) 1.2 10 ^3/uL (0.4-5.4); Lymphocytes % (auto) 10.3 % (10.0-50.0); Mean Corpuscular Hemoglobin 30.8 pg (28.0-32.0); Mean Corpuscular Hgb Conc. 32.6 g/dL (32.0-36.0); Mean Corpuscular Volume 94.6 fL (80.0-100.0); Monocytes # (auto) 0.6 10 ^3/uL (0-1.3); Monocytes % (auto) 5.1 % (0.0-12.0); Neutrophils # (auto) 9.7 10 ^3/uL (1.6-8.6); Neutrophils % (auto) 84.5 % (37.0-80.0); Nucleated Red Blood Cells % 0.1 %; Red Blood Cells 3.71 10^6/uL (4.0-5.20); Red Cell Distribution Width 13.8 % (11.8-14.3); White Blood Cell 11.5 10^3/uL (4.4-10.8)
[2020-08-01] MEDS: methylPREDNISolone SOD SUCC 125 MG/2 ML VL IV SCH ×3 (06:06→22:05)
[2020-08-01 06:13] LABS: Albumin 3.1 g/dL (3.4-5.0); Calcium 9.2 mg/dL (8.5-10.1); Potassium 4.2 mmol/L (3.5-5.1)
[2020-08-01 06:16] LABS: BUN/Creatinine Ratio 44.7; Bilirubin, Total 0.4 mg/dL (0.2-1.0); Total Protein 6.1 g/dL (6.4-8.2)
[2020-08-01 09:00] VITALS: BP 109/74
[2020-08-01] MEDS: BUDESONIDE (INHALATION) 0.5 MG/2 ML NEB NEB SCH ×2 (09:38→18:36)
[2020-08-01] MEDS: QUEtiapine FUMARATE 25 MG TAB PO SCH ×2 (10:00→22:00)
[2020-08-01] MEDS: ENOXAPARIN SOD 40 MG/0.4 ML SYRINGE SC SCH (10:00)
[2020-08-01] MEDS: PANTOPRAZOLE 40 MG/10 ML VIAL INJ IV SCH (10:00)
[2020-08-01] MEDS: cefTRIAXone 1GM/50ML D5W 50 ML IV SCH (10:16)
[2020-08-01] MEDS: AZITHROMYCIN 500MG/ 250ML 250 ML IV SCH (10:17)
[2020-08-01] MEDS: NICOTINE 7MG/24HR TOPICAL PATCH TD SCH (10:18)
[2020-08-01 13:00] VITALS: BP 121/75
[2020-08-01 17:00] VITALS: BP 99/68
[2020-08-01 22:00] VITALS: BP 104/63
[2020-08-02] MEDS: ALBUTEROL SULF 2.5 MG/0.5ML(0.5%) NEB SOLN NEB SCH ×4 (01:47→13:52)
[2020-08-02] MEDS: IPRATROPIUM BROM 0.5 MG/2.5ML INH SOL NEB SCH ×4 (01:47→13:52)
[2020-08-02 05:50] VITALS: BP 99/71
[2020-08-02] MEDS: BUDESONIDE (INHALATION) 0.5 MG/2 ML NEB NEB SCH (06:01)
[2020-08-02] MEDS: methylPREDNISolone SOD SUCC 125 MG/2 ML VL IV SCH ×2 (06:20→14:00)
[2020-08-02 08:49] VITALS: BP 111/79
[2020-08-02 08:55] LABS: Basophils # (auto) 0 10 ^3/uL (0-0.2); Basophils % (auto) 0.1 % (0.0-2.0); Eosinophils # (auto) 0 10 ^3/uL (0-0.8); Hematocrit 34.7 % (36.0-46.0); Hemoglobin 11.5 g/dL (12.2-16.2); Lymphocytes # (auto) 1.3 10 ^3/uL (0.4-5.4); Lymphocytes % (auto) 9.1 % (10.0-50.0); Mean Corpuscular Hemoglobin 31.2 pg (28.0-32.0); Mean Corpuscular Hgb Conc. 33.1 g/dL (32.0-36.0); Mean Corpuscular Volume 94.4 fL (80.0-100.0); Monocytes # (auto) 0.8 10 ^3/uL (0-1.3); Monocytes % (auto) 5.4 % (0.0-12.0); Neutrophils # (auto) 11.8 10 ^3/uL (1.6-8.6); Neutrophils % (auto) 85.4 % (37.0-80.0); Nucleated Red Blood Cells % 0.1 %; Red Blood Cells 3.67 10^6/uL (4.0-5.20); Red Cell Distribution Width 13.6 % (11.8-14.3); White Blood Cell 13.8 10^3/uL (4.4-10.8)
[2020-08-02 09:24] LABS: Albumin 3.2 g/dL (3.4-5.0); BUN/Creatinine Ratio 44.9; Bilirubin, Total 0.5 mg/dL (0.2-1.0); Calcium 9.1 mg/dL (8.5-10.1); Total Protein 6.1 g/dL (6.4-8.2)
[2020-08-02] MEDS: cefTRIAXone 1GM/50ML D5W 50 ML IV SCH (09:56)
[2020-08-02] MEDS: PANTOPRAZOLE 40 MG/10 ML VIAL INJ IV SCH (09:57)
[2020-08-02] MEDS: QUEtiapine FUMARATE 25 MG TAB PO SCH (09:57)
[2020-08-02] MEDS: ENOXAPARIN SOD 40 MG/0.4 ML SYRINGE SC SCH (09:57)
[2020-08-02] MEDS: NICOTINE 7MG/24HR TOPICAL PATCH TD SCH (09:57)
[2020-08-02] MEDS: AZITHROMYCIN 500MG/ 250ML 250 ML IV SCH (10:00)
[2020-08-02 12:53] VITALS: BP 107/73
[2020-08-02 13:18] VITALS: BP 107/73
== END 2020-08-02 16:59 | disposition home health service (06) | DRG 720 ==
LOC: EDBD 18:29 → ER 18:32 → TELE 18:33 → DOU IN ICU 23:53 → TELE-CENTR 07-30 15:10
PROVIDERS: ADMIT Internal Medicine; ATTEND Internal Medicine
PROC: 0BH17EZ Insertion of Endotracheal Airway into Trachea, Via Natural or Artificial Opening (ICD-10-PCS; principal; 2020-07-26)
PROC: 5A1945Z Respiratory Ventilation, 24-96 Consecutive Hours (ICD-10-PCS; 2020-07-26)
PROC: 06HM33Z Insertion of Infusion Device into Right Femoral Vein, Percutaneous Approach (ICD-10-PCS; 2020-08-02)
DX: A41.9 Sepsis, unspecified organism (principal); R65.21 Severe sepsis with septic shock; J18.9 Pneumonia, unspecified organism; J96.22 Acute and chronic respiratory failure with hypercapnia; J96.21 Acute and chronic respiratory failure with hypoxia; E11.22 Type 2 diabetes mellitus with diabetic chronic kidney disease; F17.210 Nicotine dependence, cigarettes, uncomplicated; I48.91 Unspecified atrial fibrillation; J43.9 Emphysema, unspecified; I13.0 Hypertensive heart and chronic kidney disease with heart failure and stage 1 through stage 4 chronic kidney disease, or unspecified chronic kidney disease; I50.22 Chronic systolic (congestive) heart failure; Z20.822 Contact with and (suspected) exposure to COVID-19; N18.9 Chronic kidney disease, unspecified; Z79.01 Long term (current) use of anticoagulants; Z81.8 Family history of other mental and behavioral disorders; Z82.49 Family history of ischemic heart disease and other diseases of the circulatory system; Z83.3 Family history of diabetes mellitus; Z87.01 Personal history of pneumonia (recurrent); Z99.81 Dependence on supplemental oxygen
CPT/HCPCS: 31500; 36415; 36556; 36600; 71045; 80053; 81001; 82805; 83605; 83880; 84484; 85025; 85379; 87040; 87070; 87081; 87205; 87426; 92610; 93005; 93306; 94002; 94003; 94640; 96374; 97116; 97163; 97530; 99291; C9113; G0378; J0330; J0696; J2001; J2250; J2704; J7060

== ENCOUNTER 2020-09-08 13:59 | Inpatient (IN) | payer MEDICAID ==
[~2020-09-08] VITALS: Ht 162.6 cm; Wt 38.3 kg
[~2020-09-08 13:59] MED LIST: BECL80AE11 INH; UMEC1INH INH
[2020-09-08 14:43] LABS: Basophils # (auto) 0.1 10 ^3/uL (0-0.2); Basophils % (auto) 1.1 % (0.0-2.0); Eosinophils # (auto) 0.9 10 ^3/uL (0-0.8); Hematocrit 40.1 % (36.0-46.0); Hemoglobin 13.1 g/dL (12.2-16.2); Lymphocytes # (auto) 3.6 10 ^3/uL (0.4-5.4); Lymphocytes % (auto) 31.2 % (10.0-50.0); Mean Corpuscular Hemoglobin 31.4 pg (28.0-32.0); Mean Corpuscular Hgb Conc. 32.6 g/dL (32.0-36.0); Mean Corpuscular Volume 96.3 fL (80.0-100.0); Monocytes % (auto) 8.3 % (0.0-12.0); Neutrophils % (auto) 51.4 % (37.0-80.0); Platelet Count (auto) 312 10^3/uL (140-450); Red Blood Cells 4.16 10^6/uL (4.0-5.20); Red Cell Distribution Width 14.2 % (11.8-14.3); White Blood Cell 11.7 10^3/uL (4.4-10.8)
[2020-09-08 14:58] LABS: INR 0.95 (0.9-1.15); Partial Thromboplastin Time 29.3 sec (23.0-31.2)
[2020-09-08 15:00] LABS: Albumin 3.8 g/dL (3.4-5.0); Anion Gap 5 (5-15); Blood Urea Nitrogen 5 mg/dL (7-18); Calcium 9.2 mg/dL (8.5-10.1); Carbon Dioxide 30 mmol/L (21-32); Chloride 108 mmol/L (98-107); Glucose 102 mg/dL (74-106); Magnesium 2.2 mg/dL (1.6-2.6); Sodium 143 mmol/L (136-145)
[2020-09-08 15:06] LABS: Alanine Aminotransferase 16 U/L (13-56); Alkaline Phosphatase 148 U/L (45-117); Aspartate Aminotransferase 15 U/L (15-37); BUN/Creatinine Ratio 5.7; Bilirubin, Total 0.4 mg/dL (0.2-1.0); GFR African American 86 mL/min; GFR Non-African American 71 mL/min; Total Protein 7.3 g/dL (6.4-8.2)
[2020-09-08] MEDS ORDERED: ALBUTEROL SULF 2.5 MG/0.5ML(0.5%) NEB SOLN HHN ONE (15:15)
[2020-09-08] MEDS ORDERED: IPRATROPIUM BROM 0.5 MG/2.5ML INH SOL HHN ONE (15:15)
[2020-09-08] MEDS ORDERED: methylPREDNISolone SOD SUCC 125 MG/2 ML VL IV ONE (15:15)
[2020-09-08 18:13] LABS: Urine Bacteria NONE SEEN /hpf (None Seen); Urine Blood Negative /uL (Negative); Urine Mucus FEW (None Seen); Urine Specific Gravity 1.005 (1.001-1.035); Urine WBC 8 /hpf (0 - 5)
[2020-09-08] MEDS ORDERED: ONDANSETRON HCL 4 MG/2 ML VIAL IV PRN (19:15)
[2020-09-08] MEDS ORDERED: MORPHINE SULF INJ 2 MG/ML SYRINGE 1ML IV PRN ×2 (19:15)
[2020-09-08] MEDS ORDERED: ACETAMINOPHEN 325 MG TAB PO PRN (19:15)
[2020-09-08] MEDS ORDERED: NITROGLYCERIN 0.4 MG SL TAB SL PRN (19:15)
[2020-09-08] MEDS ORDERED: HYDROcodone-ACET 5/325MG TAB PO PRN (19:15)
[2020-09-08 19:47] VITALS: BP 101/59
[2020-09-08 21:00] VITALS: BP 95/65
[2020-09-08 22:00] VITALS: BP 95/65
[2020-09-08] MEDS ORDERED: IPRATROPIUM BROM 0.5 MG/2.5ML INH SOL NEB SCH (22:00)
[2020-09-08] MEDS: Beclomethasone Dipropionate (Qvar Redihaler) 80 MCG IN SCH (22:00)
[2020-09-08] MEDS ORDERED: ALBUTEROL SULF 2.5 MG/0.5ML(0.5%) NEB SOLN NEB SCH (22:00)
[2020-09-08] MEDS: IPRATROPIUM BROM 0.5 MG/2.5ML INH SOL NEB SCH (22:37)
[2020-09-08] MEDS: ALBUTEROL SULF 2.5 MG/0.5ML(0.5%) NEB SOLN NEB SCH (22:38)
[2020-09-09 05:00] VITALS: BP 101/64
[2020-09-09] MEDS: methylPREDNISolone SOD SUCC 40 MG/ML VL IV SCH ×3 (05:18→23:15)
[2020-09-09] MEDS: ALBUTEROL SULF 2.5 MG/0.5ML(0.5%) NEB SOLN NEB SCH ×4 (07:41→22:00)
[2020-09-09] MEDS: IPRATROPIUM BROM 0.5 MG/2.5ML INH SOL NEB SCH ×4 (07:41→22:00)
[2020-09-09 08:00] VITALS: BP 87/63
[2020-09-09 08:39] VITALS: BP 87/65
[2020-09-09] MEDS: PANTOPRAZOLE 40 MG TAB PO SCH (09:55)
[2020-09-09] MEDS: ENOXAPARIN SOD 40 MG/0.4 ML SYRINGE SC SCH (09:55)
[2020-09-09] MEDS: UMECLIDINIUM BROMIDE 62.5 MCG IN SCH (10:00)
[2020-09-09] MEDS: Beclomethasone Dipropionate (Qvar Redihaler) 80 MCG IN SCH ×2 (10:00→22:00)
[2020-09-09 13:00] VITALS: BP 89/69
[2020-09-09 17:00] VITALS: BP 91/61
[2020-09-09 22:00] VITALS: BP 82/54
[2020-09-10] MEDS ORDERED: IPRATROPIUM BROM 0.5 MG/2.5ML INH SOL NEB PRN (01:15)
[2020-09-10] MEDS ORDERED: ALBUTEROL SULF 2.5 MG/0.5ML(0.5%) NEB SOLN NEB PRN (01:15)
[2020-09-10 05:00] VITALS: BP 104/53
[2020-09-10] MEDS: methylPREDNISolone SOD SUCC 40 MG/ML VL IV SCH (06:14)
[2020-09-10 09:22] VITALS: BP 87/55
[2020-09-10] MEDS: UMECLIDINIUM BROMIDE 62.5 MCG IN SCH (10:00)
[2020-09-10] MEDS: Beclomethasone Dipropionate (Qvar Redihaler) 80 MCG IN SCH (10:00)
[2020-09-10] MEDS: ENOXAPARIN SOD 40 MG/0.4 ML SYRINGE SC SCH ×2 (10:48→10:50)
[2020-09-10] MEDS: PANTOPRAZOLE 40 MG TAB PO SCH (10:48)
[2020-09-10 12:24] VITALS: BP 87/55
== END 2020-09-10 12:45 | disposition home health service (06) | DRG 140 ==
LOC: EDBD 13:59 → ER 13:59 → TELE 19:09 → TELE-EAST 19:55
PROVIDERS: ADMIT Internal Medicine; ATTEND Internal Medicine
DX: J44.1 Chronic obstructive pulmonary disease with (acute) exacerbation (principal); J96.21 Acute and chronic respiratory failure with hypoxia; R64 Cachexia; E44.1 Mild protein-calorie malnutrition; Z99.81 Dependence on supplemental oxygen; Z20.822 Contact with and (suspected) exposure to COVID-19; F17.210 Nicotine dependence, cigarettes, uncomplicated; I10 Essential (primary) hypertension; D72.828 Other elevated white blood cell count; J98.11 Atelectasis; Z71.6 Tobacco abuse counseling; Z68.1 Body mass index [BMI] 19.9 or less, adult; Z88.0 Allergy status to penicillin; Z81.8 Family history of other mental and behavioral disorders; Z82.49 Family history of ischemic heart disease and other diseases of the circulatory system; Z83.3 Family history of diabetes mellitus
CPT/HCPCS: 36415; 36600; 71045; 80053; 81001; 82805; 83605; 83735; 83880; 84484; 85025; 85610; 85730; 87040; 87426; 93005; 94640; G0378

== ENCOUNTER 2022-01-23 08:43 | Emergency (ER) | payer MEDICAID ==
[~2022-01-23] VITALS: Ht 167.6 cm; Wt 140.0 kg
[2022-01-23] MEDS ORDERED: ALBUTEROL SULF 2.5 MG/0.5ML(0.5%) NEB SOLN NEB ONE (09:15)
[2022-01-23] MEDS ORDERED: methylPREDNISolone SOD SUCC 125 MG/2 ML VL IV ONE (09:15)
[2022-01-23] MEDS ORDERED: IPRATROPIUM BROM 0.5 MG/2.5ML INH SOL NEB ONE (09:15)
[2022-01-23 10:09] LABS: Basophils # (auto) 0.1 10 ^3/uL (0-0.2); Basophils % (auto) 1.1 % (0.0-2.0); Eosinophils # (auto) 0.6 10 ^3/uL (0-0.8); Eosinophils % (auto) 6.8 % (0.0-7.0); Hematocrit 40.6 % (36.0-46.0); Hemoglobin 13.5 g/dL (12.2-16.2); Lymphocytes # (auto) 2.1 10 ^3/uL (0.4-5.4); Lymphocytes % (auto) 22.8 % (10.0-50.0); Mean Corpuscular Hemoglobin 31.5 pg (28.0-32.0); Mean Corpuscular Hgb Conc. 33.2 g/dL (32.0-36.0); Monocytes # (auto) 0.4 10 ^3/uL (0-1.3); Monocytes % (auto) 4.5 % (0.0-12.0); Neutrophils % (auto) 64.8 % (37.0-80.0); Red Blood Cells 4.27 10^6/uL (4.0-5.20); Red Cell Distribution Width 14.7 % (11.8-14.3); White Blood Cell 9.2 10^3/uL (4.4-10.8)
[2022-01-23 10:26] LABS: Albumin 4.2 g/dL (3.4-5.0); BUN/Creatinine Ratio 8.3; Calcium 9.7 mg/dL (8.5-10.1); Potassium 4.8 mmol/L (3.5-5.1)
[2022-01-23 10:35] LABS: Bilirubin, Total 0.4 mg/dL (0.2-1.0); Total Protein 7.9 g/dL (6.4-8.2)
[2022-01-23] MEDS ORDERED: cefTRIAXone W LIDOCAINE 1 GM IM IM ONE (12:30)
[2022-01-23] MEDS ORDERED: cefTRIAXone SOD 1,000 MG VL IM ONE (12:45)
[2022-01-23] MEDS ORDERED: methylPREDNISolone SOD SUCC 125 MG/2 ML VL IM ONE (12:45)
[2022-01-23] MEDS ORDERED: PRED20TA2 PO (14:25)
[2022-01-23] MEDS ORDERED: PANT40TA2 PO (14:26)
[2022-01-23 16:13] VITALS: BP 131/69
[2022-01-23 17:15] LABS: Urine Bacteria FEW /hpf (None Seen); Urine Blood Negative /uL (Negative); Urine Hyaline Cast FEW /lpf (0 - 2); Urine Mucus FEW (None Seen); Urine Specific Gravity 1.012 (1.001-1.035); Urine WBC 6 /hpf (0 - 5)
== END 2022-01-23 13:12 | disposition home or self-care (01) ==
LOC: ER 08:43 → EDBD 08:43 → ER 13:12
DX: J44.1 Chronic obstructive pulmonary disease with (acute) exacerbation (principal)
CPT/HCPCS: 36415; 71045; 80053; 81001; 83880; 84484; 85025; 85379; 93005; 94640; 96372; 99285; J0696; J2930; J7644

== ENCOUNTER 2022-02-07 13:28 | Emergency (ER) | payer MEDICAID ==
[~2022-02-07] VITALS: Ht 177.8 cm; Wt 83.0 kg
[~2022-02-07 13:28] MED LIST changes: +PANT40TA2 PO; +PRED20TA2 PO
[2022-02-07 13:35] VITALS: BP 132/96
[2022-02-07 14:20] LABS: Basophils # (auto) 0.1 10 ^3/uL (0-0.2); Basophils % (auto) 1.2 % (0.0-2.0); Eosinophils # (auto) 0.3 10 ^3/uL (0-0.8); Eosinophils % (auto) 3.1 % (0.0-7.0); Hematocrit 35.7 % (36.0-46.0); Hemoglobin 11.4 g/dL (12.2-16.2); Lymphocytes # (auto) 3.1 10 ^3/uL (0.4-5.4); Lymphocytes % (auto) 30.9 % (10.0-50.0); Mean Corpuscular Hemoglobin 30.3 pg (28.0-32.0); Mean Corpuscular Hgb Conc. 31.8 g/dL (32.0-36.0); Mean Corpuscular Volume 95.2 fL (80.0-100.0); Monocytes # (auto) 0.7 10 ^3/uL (0-1.3); Monocytes % (auto) 6.9 % (0.0-12.0); Neutrophils # (auto) 5.8 10 ^3/uL (1.6-8.6); Neutrophils % (auto) 57.9 % (37.0-80.0); Nucleated Red Blood Cells % 0.1 %; Red Blood Cells 3.75 10^6/uL (4.0-5.20); Red Cell Distribution Width 14.6 % (11.8-14.3)
[2022-02-07 14:31] LABS: Albumin 3.6 g/dL (3.4-5.0); Calcium 8.9 mg/dL (8.5-10.1); Potassium 3.9 mmol/L (3.5-5.1)
[2022-02-07 14:34] LABS: BUN/Creatinine Ratio 9.3; Bilirubin, Total 0.4 mg/dL (0.2-1.0); Total Protein 6.6 g/dL (6.4-8.2)
== END 2022-02-07 17:25 | disposition home or self-care (01) ==
LOC: ER 13:28 → EDBD 13:28 → ER 17:25
DX: F41.9 Anxiety disorder, unspecified (principal); R94.31 Abnormal electrocardiogram [ECG] [EKG]; J44.9 Chronic obstructive pulmonary disease, unspecified; K21.9 Gastro-esophageal reflux disease without esophagitis; E78.5 Hyperlipidemia, unspecified; Z87.891 Personal history of nicotine dependence; Z88.0 Allergy status to penicillin
CPT/HCPCS: 36415; 71045; 80053; 83880; 84484; 85025; 93005

== ENCOUNTER 2023-02-27 23:31 | Emergency (ER) | payer MEDICAID ==
[~2023-02-27] VITALS: Ht 165.1 cm; Wt 36.0 kg
[2023-02-28 01:00] VITALS: PULSE 99; RESP 23; O2SAT 97
[2023-02-28] MEDS ORDERED: ACETAMINOPHEN 650 mg PER 20.3 mL UD PO ONE (01:15)
[2023-02-28 02:09] LABS: Basophils # (auto) 0 10 ^3/uL (0-0.2); Basophils % (auto) 0.2 % (0.0-2.0); Eosinophils # (auto) 0 10 ^3/uL (0-0.8); Eosinophils % (auto) 0.2 % (0.0-7.0); Hematocrit 32.4 % (36.0-46.0); Hemoglobin 10.6 g/dL (12.2-16.2); Lymphocytes # (auto) 3.3 10 ^3/uL (0.4-5.4); Lymphocytes % (auto) 14.4 % (10.0-50.0); Mean Corpuscular Hemoglobin 31.4 pg (28.0-32.0); Mean Corpuscular Hgb Conc. 32.7 g/dL (32.0-36.0); Mean Corpuscular Volume 95.9 fL (80.0-100.0); Monocytes # (auto) 1.8 10 ^3/uL (0-1.3); Monocytes % (auto) 7.8 % (0.0-12.0); Neutrophils # (auto) 17.7 10 ^3/uL (1.6-8.6); Neutrophils % (auto) 77.4 % (37.0-80.0); Red Blood Cells 3.38 10^6/uL (4.0-5.20); Red Cell Distribution Width 13.9 % (11.8-14.3); White Blood Cell 22.8 10^3/uL (4.4-10.8)
[2023-02-28 02:29] LABS: Alanine Aminotransferase 17 U/L (7-40); Albumin 4.2 g/dL (3.2-4.8); Alkaline Phosphatase 104 U/L (46-116); Anion Gap 5 (5-15); Aspartate Aminotransferase 15 U/L (13-40); BUN/Creatinine Ratio 5.8 (10.0-20.0); Bilirubin, Total 0.8 mg/dL (0.2-1.0); Blood Urea Nitrogen 6 mg/dL (9-23); Calcium 8.9 mg/dL (8.7-10.4); Carbon Dioxide 28 mmol/L (20-30); Chloride 106 mmol/L (98-107); Glucose 118 mg/dL (74-106); Magnesium 1.7 mg/dL (1.6-2.6); Potassium 3.8 mmol/L (3.5-5.1); Sodium 139 mmol/L (136-145)
[2023-02-28] MEDS ORDERED: SODIUM CHLORIDE 0.9% 1,000 ML IV ONE (02:30)
[2023-02-28] MEDS ORDERED: levoFLOXacin 500 MG TAB PO ONE (04:30)
[2023-02-28 08:07] VITALS: BP 101/56; PULSE 106; RESP 20; TEMP 98.4; O2SAT 98
== END 2023-02-28 08:39 | disposition short-term general hospital (02) ==
LOC: EDBD 23:31 → ER 23:31
DX: S42.301A Unspecified fracture of shaft of humerus, right arm, initial encounter for closed fracture (principal); S32.402A Unspecified fracture of left acetabulum, initial encounter for closed fracture; D72.829 Elevated white blood cell count, unspecified; M54.2 Cervicalgia; R51.9 Headache, unspecified; J44.9 Chronic obstructive pulmonary disease, unspecified; K21.9 Gastro-esophageal reflux disease without esophagitis; E78.5 Hyperlipidemia, unspecified; Z90.89 Acquired absence of other organs; Z87.891 Personal history of nicotine dependence; Z79.899 Other long term (current) drug therapy; W01.0XXA Fall on same level from slipping, tripping and stumbling without subsequent striking against object, initial encounter; Y93.89 Activity, other specified; Y92.89 Other specified places as the place of occurrence of the external cause; Y99.8 Other external cause status
CPT/HCPCS: 36415; 70450; 71250; 72125; 73020; 74176; 80053; 83605; 83735; 84484; 85025; 87040; 96360; 99285; J7030

== ENCOUNTER 2023-03-03 09:26 | Emergency (ER) | payer MEDICAID ==
[~2023-03-03] VITALS: Ht 165.1 cm; Wt 50.0 kg
[2023-03-03 09:50] VITALS: PULSE 117; RESP 42; O2SAT 90
[2023-03-03] MEDS ORDERED: ALBUTEROL SULF 2.5 MG/0.5ML(0.5%) NEB SOLN NEB ONE (10:00)
[2023-03-03] MEDS ORDERED: ACETAMINOPHEN 650 mg PER 20.3 mL UD GT PRN (10:00)
[2023-03-03] MEDS ORDERED: SODIUM CHLORIDE 0.9% 1,000 ML IV ONE (10:30)
[2023-03-03 11:04] VITALS: BP 97/60; PULSE 121; RESP 24; TEMP 98.9; O2SAT 99
== END 2023-03-03 11:23 | disposition short-term general hospital (02) ==
LOC: EDBD 09:26 → ER 09:26
DX: S42.494A Other nondisplaced fracture of lower end of right humerus, initial encounter for closed fracture (principal); S32.492A Other specified fracture of left acetabulum, initial encounter for closed fracture; F41.9 Anxiety disorder, unspecified; J44.9 Chronic obstructive pulmonary disease, unspecified; K21.9 Gastro-esophageal reflux disease without esophagitis; E78.5 Hyperlipidemia, unspecified; Z88.0 Allergy status to penicillin; Z79.899 Other long term (current) drug therapy; Z90.89 Acquired absence of other organs; X58.XXXA Exposure to other specified factors, initial encounter; Y93.89 Activity, other specified; Y92.89 Other specified places as the place of occurrence of the external cause; Y99.8 Other external cause status
CPT/HCPCS: 72170; 73030; 94640; 99285; J7030

== ENCOUNTER 2025-04-02 19:30 | Inpatient (IN) | payer MEDICAID ==
[~2025-04-02] VITALS: Ht 152.4 cm; Wt 39.5 kg
--- NOTE | 2025-04-02 19:40 | ED.PDOC ---
SOB-HPI HPI Comments 59 year old female came to ER via EMS due to shortness of breath. Patient is cachectic, has history of COPD and CHF, on home oxygen at 2 lpm. Comes in for sudden onset shortness of breath. Was saturating at 70% on scene. Was given albuterol treatment and palced at 6lpm and it improved to 94% REVIEW OF SYSTEMS: General: No fever, no chills, or fatigue HEENT: No sore throat, no earache, no congestion, no neck pain. Cardiac: No chest pain. No palpitations. Lungs: (+) shortness of breath, no cough. GI: No nausea, no vomiting, no diarrhea, no constipation, no abdominal pain : No dysuria, frequency, or urgency. No hematuria. Musculoskeletal: No joint pain , no joint swelling, no extremity edema. Skin: No rash, no itching. Neuro: No headache, no dizziness, no weakness PHYSICAL EXAM: General: Awake, alert and oriented. No acute distress. Skin: Skin in warm, dry and intact. Appropriate color for ethnicity. HEENT: The head is normocephalic and atraumatic. Conjunctivae are clear without exudates or hemorrhage. Sclera is non-icteric. EOM are intact. No signs of nystagmus. Eyelids are normal in appearance without swelling or lesions. Oral mucosa is pink and moist Neck: The neck is supple with normal range of motion. No JVD. Cardiac: Heart rate and rhythm are normal. No murmurs, gallops, or rubs are auscultated. Respiratory: Diminished breath sounds bilateral. Patient is tachypneic Abdominal: Abdomen is soft, non-tender without distention, guarding or rigidity. Bowel sounds are present and normoactive in all four quadrants. Extremities: Bilateral extremity edema Neurological: The patient is awake, alert There is no facial asymmetry. Chief Complaint: Shortness of Breath Time Seen by MD: 19:40 Primary Care Provider: VIKY Alvarado notes: Senior Health Consultant Notes Information Source: Patient, Emergency Med Personnel Mode of Arrival: EMS Past Medical History PAST MEDICAL HISTORY: Anxiety, CHF, COPD, GERD, High Lipids, Hypotension Surgical History: Tonsillectomy STUNT PERSON History: No Pertinent STUNT PERSON History Family History Family History: Family hx of HTN Social History Smoker: Quit Greater Than 1 Year Alcohol: Denies ETOH Use Drugs: Denies Drug Use Lives In: Home Was a procedure done? Was a procedure done?: No Differential Dx Differential Diagnosis: Asthma, CHF, COPD, Pneumonia, Respiratory Distress X-Ray, Labs, Meds, VS Vital Signs Date Time Temp Pulse Resp B/P (MAP) Pulse Ox O2 Delivery O2 Flow Rate FiO2 04/02/25 19:59 22 90 Nasal Cannula* 5 40 04/02/25 19:48 135 04/02/25 19:30 98.9 130 20 111/72 94 98.9 Lab Test 04/02/25 20:50 04/02/25 20:38 04/02/25 20:13 04/02/25 20:05 Range/Units Troponin I High Sensitivity 7 </=34 ng/L Urine Color Yellow Yellow Urine Clarity Clear Clear Urine pH 5.5 5.0-9.0 Urine Specific [place] 1.015 1.001-1.035 Urine Protein Trace H Negative Urine Ketones Negative Negative Urine Blood Negative Negative /uL Urine Nitrite Negative Negative Urine Bilirubin Negative Negative Urine Urobilinogen Normal Negative mg/dL Urine Leukocyte Esterase Negative Negative /uL Urine RBC 1 0 - 4 /hpf Urine Microscopic WBC 1 0-5 /HPF Urine Squamous Epithelial Cells None seen <5 /hpf Urine Bacteria None seen None Seen /hpf Urine Mucus Few None Seen Urine Glucose Normal Normal mg/dL Urine Opiates Screen Neg NEGATIVE Urine Fentanyl Screen Neg NEGATIVE Urine Barbiturates Screen Neg NEGATIVE Urine Phencyclidine Screen Neg NEGATIVE Urine Amphetamines Screen Neg NEGATIVE Urine Benzodiazepines Screen Neg NEGATIVE Urine Cocaine Screen Neg NEGATIVE Urine Cannabinoids Screen Neg NEGATIVE Influenza Type A Antigen Negative Negative Influenza Type B Antigen Negative Negative SARS-CoV-2 Antigen (Rapid) Negative NEGATIVE Blood Gas Specimen Type Capillary Blood Gas Sample Site Left radial Blood Gas Patient Temperature 37.0 Arterial Blood Date Drawn [id number] Alex Test Yes Capillary Blood pH 7.355 7.350-7.450 Capillary Blood PCO2 74.0 H 32.0-45.0 mmHg Capillary Blood PO2 83.1 83.0-108.0 mmHg Capillary Blood HCO3 40.4 H 21.0-28.0 mmol/L Capillary Blood Base Excess 12.2 H -2.0-3.0 mmol/L Capillary Blood Oxygen Saturation 95.6 94.0-98.0 % Capillary Blood Oxyhemoglobin 94.6 94.0-98.0 % Capillary Blood Carboxyhemoglobin 0.5 0.5-1.5 % Capillary Blood Methemoglobin 0.5 0.0-1.5 % Capillary Blood Hemoglobin 11.3 L 12.0-16.0 g/dL Blood Gas Modality Nasal cannula FiO2 % 60.0 Blood Gas Critical Value Read Back Yes Blood Gas Notified Whom shayne Perdomo Blood Gas Notified Time [id number] Blood Gas Notified By Rt ananda alegria Test 04/02/25 20:04 04/02/25 20:00 Range/Units White Blood Count 22.5 H 4.4-10.8 10^3/uL Red Blood Count 3.09 L 4.0-5.20 10^6/uL Hemoglobin 9.7 L 12.2-16.2 g/dL Hematocrit 29.5 L 36.0-46.0 % Mean Corpuscular Volume 95.6 80.0-100.0 fL Mean Corpuscular Hemoglobin 31.2 28.0-32.0 pg Mean Corpuscular Hemoglobin Concent 32.7 32.0-36.0 g/dL Red Cell Distribution Width 14.1 11.8-14.3 % Platelet Count 236 140-450 10^3/uL Mean Platelet Volume 8.2 6.9-10.8 fL Neutrophils (%) (Auto) 89.3 H 37.0-80.0 % Lymphocytes (%) (Auto) 3.6 L 10.0-50.0 % Monocytes (%) (Auto) 6.8 0.0-12.0 % Eosinophils (%) (Auto) 0.0 0.0-7.0 % Basophils (%) (Auto) 0.3 0.0-2.0 % Neutrophils # (Auto) 20.1 H 1.6-8.6 10 ^3/uL Lymphocytes # (Auto) 0.8 0.4-5.4 10 ^3/uL Monocytes # (Auto) 1.5 H 0-1.3 10 ^3/uL Eosinophils # (Auto) 0 0-0.8 10 ^3/uL Basophils # (Auto) 0.1 0-0.2 10 ^3/uL Nucleated Red Blood Cells 0.0 % Prothrombin Time 10.4 9.3-11.8 sec Prothrombin Time INR 0.98 0.9-1.15 Sodium Level 133 L 136-145 mmol/L Potassium Level 4.7 3.5-5.1 mmol/L Chloride Level 90 L 98-107 mmol/L Carbon Dioxide Level 37 H 20-31 mmol/L Anion Gap 6 5-15 Blood Urea Nitrogen 10 9-23 mg/dL Creatinine 0.64 0.550-1.02 mg/dL Glomerular Filtration Rate Calc 100 >90 mL/min BUN/Creatinine Ratio 15.6 10.0-20.0 Serum Glucose 92 74-106 mg/dL Calcium Level 7.9 L 8.7-10.4 mg/dL Magnesium Level 1.6 1.6-2.6 mg/dL Total Bilirubin 0.7 0.2-1.0 mg/dL Aspartate Amino Transferase (AST) 48 H 13-40 U/L Alanine Aminotransferase (ALT) 49 H 7-40 U/L Alkaline Phosphatase 67 46-116 U/L Troponin I High Sensitivity 7 </=34 ng/L B-Type Natriuretic Peptide 38.81 0-100 pg/mL Total Protein 6.0 5.7-8.2 g/dL Albumin 3.5 3.2-4.8 g/dL Lipase 19 12-53 U/L Plasma/Serum Blood Alcohol < 3.0 <10 mg/dL Lactic Acid Level 1.2 0.4-2.0 mmol/L Current Medications Medications (Trade) Dose Ordered Sig/Guy Route Start Time Stop Time Status Last Admin Albuterol (Ventolin Medneb) 2.5 mg ONCE ONCE NEB 04/02/25 19:45 04/02/25 19:46 DC 04/02/25 19:49 Ipratropium [place] (Atrovent Medneb) 0.5 mg ONCE ONCE NEB 04/02/25 19:45 04/02/25 19:46 DC 04/02/25 19:49 Methylprednisolone Sodium Succinate (Solu Medrol) 80 mg ONCE ONCE IV 04/02/25 19:45 04/02/25 19:46 DC 04/02/25 20:05 Time of 1ST Reevaluation: 19:38 Reevaluation 1ST: Unchanged Patient Education/Counseling: Need For Follow Up Family Education/Counseling: No Family Present SEPSIS Sepsis Screen Physician Orders Chest Xray 1 View (04/02/25 19:35) Electrocardigram (04/02/25 19:35) Blood Culture (04/02/25 19:35) Abg W/ Co-Ox (04/02/25 19:35) Saline Lock (04/02/25 19:35) Electrostatic Paint Operator (04/02/25 ) Straight Cath. (04/02/25 ) Electrocardigram (04/02/25 21:21) Troponin-I Hs (04/02/25 20:35) Insert/Manage Urinary Catheter QSHIFT (04/02/25 20:32) Vital Signs Date Time Temp Pulse Resp B/P (MAP) Pulse Ox O2 Delivery O2 Flow Rate FiO2 04/02/25 19:59 22 90 Nasal Cannula* 5 40 04/02/25 19:48 135 04/02/25 19:30 98.9 130 20 111/72 94 98.9 Laboratory Tests Test 04/02/25 20:00 04/02/25 20:04 Lactic Acid Level 1.2 mmol/L (0.4-2.0) White Blood Count 22.5 10^3/uL (4.4-10.8) H Medications Medications Dose Ordered Sig/Guy Route Start Time Stop Time Status Last Admin Dose Admin Albuterol 2.5 mg ONCE ONCE NEB 04/02/25 19:45 04/02/25 19:46 DC 04/02/25 19:49 Ipratropium [place] 0.5 mg ONCE ONCE NEB 04/02/25 19:45 04/02/25 19:46 DC 04/02/25 19:49 Methylprednisolone Sodium Succinate 80 mg ONCE ONCE IV 04/02/25 19:45 04/02/25 19:46 DC 04/02/25 20:05 Departure 1 Departure Time of Disposition: 21:45 Impression: Primary Impression: COPD exacerbation Disposition: ADMITTED INPATIENT Condition: Guarded Comments Patient is stabilized in the emergency department Patient admitted to hospitalist service for further treatment, evaluation and monitoring. Critical Care Note Critical Care Time?: Yes (35 min-critical care time only) Critical care comment: shortness of breath Stability Stability form required: No Heart Score Heart Score: Heart Score Response (Comments) Value History Slightly Suspicious 0 EKG Normal 0 Age 45-64 1 Risk Factors 1 or 2 risk factors 1 Troponin Normal limit 0 Total 2 I personally scribed for KAEL ROBERTS MD ([email or web address]) on 04/02/25 at 19:40. Electronically submitted by Garland De La Garza ([facility] I personally scribed for KAEL ROBERTS MD ([email or web address]) on 04/02/25 at 19:42. Electronically submitted by Garland De La Garza ([email or web address]). KAEL ROBERTS MD Apr 02, 2025 19:40
[2025-04-02 19:45] VITALS: PULSE 135; RESP 90; O2SAT 90
[2025-04-02] MEDS: IPRATROPIUM BROM 0.5 MG/2.5ML INH SOL NEB ONE (19:49)
[2025-04-02] MEDS: ALBUTEROL SULF 2.5 MG/0.5ML(0.5%) NEB SOLN NEB ONE (19:49)
[2025-04-02] MEDS: methylPREDNISolone SOD SUCC 125 MG/2 ML VL IV ONE (20:05)
--- NOTE | 2025-04-02 20:08 | DVH ---
CLINICAL HISTORY: AMS TECHNIQUE: Single view of the chest was obtained. COMPARISON: CT CHST AB PEL WO CON-NO IV/ORAL on DOS: 02/27/23, CXRP on DOS: 02/07/22, CHEST PORTABLE on DOS: 02/07/22, CHEST PORTABLE on DOS: 01/23/22, CHEST PORTABLE on DOS: 09/08/20 FINDINGS: The heart size and pulmonary vasculature are normal. There are patchy mfhgs-jywkokv-zosy-left bibasil ar opacities. IMPRESSION: Patchy lxsry-[id number]-wfpx-left bibasilar opacities, favoring infection.
[2025-04-02 20:20] LABS: Hematocrit 29.5 % (36.0-46.0); Hemoglobin 9.7 g/dL (12.2-16.2); Mean Corpuscular Hemoglobin 31.2 pg (28.0-32.0); Mean Corpuscular Volume 95.6 fL (80.0-100.0); Nucleated Red Blood Cells % 0.0 %
[2025-04-02 20:33] LABS: Albumin 3.5 g/dL (3.2-4.8); Alkaline Phosphatase 67 U/L (46-116); Anion Gap 6 (5-15); BUN/Creatinine Ratio 15.6 (10.0-20.0); Bilirubin, Total 0.7 mg/dL (0.2-1.0); Blood Urea Nitrogen 10 mg/dL (9-23); Glucose 92 mg/dL (74-106); INR 0.98 (0.9-1.15); Magnesium 1.6 mg/dL (1.6-2.6); Potassium 4.7 mmol/L (3.5-5.1); Prothrombin Time 10.4 sec (9.3-11.8); Total Protein 6.0 g/dL (5.7-8.2)
[2025-04-02 20:43] LABS: Alanine Aminotransferase 49 U/L (7-40); Calcium 7.9 mg/dL (8.7-10.4); Carbon Dioxide 37 mmol/L (20-31); Chloride 90 mmol/L (98-107); Sodium 133 mmol/L (136-145)
[2025-04-02 20:44] LABS: COVID19 ANTIGEN SOFIA FIA NEGATIVE (NEGATIVE)
[2025-04-02 20:49] LABS: Lipase 19 U/L (12-53)
[2025-04-02 20:58] LABS: Urine Protein, UAD TRACE (Negative)
[2025-04-02 21:07] LABS: Opiate Scree,Urine Neg (NEGATIVE)
[2025-04-02 21:08] LABS: Amphetamine Screen, Urine Neg (NEGATIVE); Barbiturate Scree,Urine Neg (NEGATIVE); Benzodiazephine Screen, Urine Neg (NEGATIVE); Cocaine Screen, Urine Neg (NEGATIVE); Phencyclidine Screen, Urine Neg (NEGATIVE)
[2025-04-02 21:09] LABS: Cannabinoid Screen, Urine Neg (NEGATIVE)
[2025-04-02] MEDS: VANCOMYCIN 1GM/250ML KIT 250 ML IV ONE (23:03)
[2025-04-02] MEDS ORDERED: DOCUSATE SOD 100 MG CAP PO PRN (23:15)
[2025-04-02] MEDS ORDERED: ONDANSETRON HCL 4 MG/2 ML VIAL IV PRN (23:15)
[2025-04-02] MEDS ORDERED: HYDROcodone-ACET 5/325MG TAB PO PRN (23:15)
[2025-04-02 23:35] VITALS: BP 94/54; PULSE 104; RESP 18; TEMP 97.6; O2SAT 98
--- NOTE | 2025-04-02 23:57 | DVHHP2 ---
History of Present Illness Reason for Visit: COPD with acute exacerbation History of Present Illness The patient is a 59-year-old female with past medical history of CHF, anxiety, COPD, GERD, hypotension, and hyperlipidemia who presented to [facility] ED with complaint of shortness of breaths. Daughter reports patient has been experiencing shortness of breaths, desaturating on room 70% increased work of breathing, given breathing treatment and placed on oxygen at 6 L/min via nasal cannula and O2 saturation improved to 94% EN route to our facility ED. Patient was seen and evaluated in the ED, laboratory data shows WBC 22.5, hemoglobin 9.7, hematocrit 29.5, platelets 236, sodium 133, potassium 4.7, BUN 10, creatinine 0.64, GFR 100, glucose 92, calcium 7.9, BNP 38.81, lipase 19, troponin 7, AST 48, ALT 49, blood pressure 94/54, heart rate 104, temperature 97.6 F, O2 saturation 94% on oxygen. Chest x-ray revealing patchy right greater than left bibasilar opacity, favoring infection. Please see medication orders section in the computer. On my assessment, patient remains weak, no diaphoresis, dizziness, currently on oxygen, no abdominal pain, diarrhea, nausea, vomiting, fever, no chills. Patient was admitted for further evaluation and medical management. Past Medical History Anxiety, CHF, COPD, GERD, High Lipids, Hypotension Past Surgical History Tonsillectomy Family History Reviewed, noncontributory to the management of this case. Past Social History The patient lives at home, denies smoking, alcohol or illicit drugs abuse. Review of Systems Constitutional: Yes: Weakness; No: Fever, Chills, Sweats, Malaise, Other Eyes: No: Pain, Vision change, Conjunctivae inflammation, Eyelid inflammation, Other, Redness ENT: No: Ear pain, Ear discharge, Nose pain, Nose discharge, Nose congestion, Mouth pain, Mouth swelling, Throat pain, Throat swelling, Other Respiratory: Shortness of breath, Other (SOB at rest); No: Cough, Dry, SOB with excertion, Wheezing, Hemoptysis, Pleuritic Pain, Sputum, Wheezing Cardiovascular: No: Chest Pain, Palpitations, Orthopnea, Paroxysmal Noc. D yspnea, Edema, Lt Headedness, Other Gastrointestinal: No: Nausea, Vomiting, Abdominal Pain, Diarrhea, Constipation, Melena, Hematochezia, Other Genitourinary: No Dysuria, No Frequency, No Incontinence, No Hematuria, No Retention, No Other Musculoskeletal: No: other, neck pain, shoulder pain, arm pain, back pain, hand pain, leg pain, foot pain Skin: No: Rash, Lesions, Jaundice, Bruising, Other Neurological: No: Weakness, Numbness, Incoordination, Change in speech, Confusion, Seizures, Other Allergies: Coded Allergies: Penicillins (Verified Allergy, Unknown, 02/07/22) Medications Current Medications Medications Dose Ordered Sig/Guy Route Start Time Stop Time Status Last Admin Dose Admin Metronidazole 100 ml @ 100 mls/hr Q8HR IV 04/03/25 06:00 Azithromycin 250 ml @ 125 mls/hr DAILY IV 04/04/25 10:00 Albuterol 2.5 mg Q4HPRN PRN NEB 04/02/25 23:15 Ipratropium [place] 0.5 mg Q4HPRN PRN NEB 04/02/25 23:15 Methylprednisolone Sodium Succinate 40 mg BID IV 04/03/25 10:00 Famotidine 20 mg Q12HR IV 04/03/25 10:00 Sodium Chloride 1,000 ml @ 60 mls/hr [id number] IV 04/02/25 23:15 Acetaminophen/ Hydrocodone Bitart 1 tab Q4HP PRN PO 04/02/25 23:15 Ondansetron HCl 4 mg Q4HP PRN IV 04/02/25 23:15 Docusate Sodium 100 mg BIDPRN PRN PO 04/02/25 23:15 Acetaminophen 650 mg Q6HP PRN PO 04/02/25 23:15 Exam Vital Signs Vital Signs Date Time Temp Pulse Resp B/P (MAP) Pulse Ox O2 Delivery O2 Flow Rate FiO2 04/02/25 23:35 97.6 104 18 94/54 98 5.0 97.6 04/02/25 19:59 Nasal Cannula* 40 General Appearance: Alert, Oriented X3, Cooperative, No acute distress HEENT: Atraumatic, PERRLA, EOMI, Mucous membr. moist/pink Respiratory: Normal air movement Cardiovascular: Regular rate, Normal S1, Normal S2, No murmurs Abdominal: Normal bowel sounds, Soft, No tenderness, No hepatospenomegaly, No masses Extremities: No clubbing, No cyanosis, No edema, Normal pulses, No tenderness/swelling Skin: No rashes, No significant lesion Neuro: Normal speech, Normal tone, Sensation intact, Cranial nerves 3-12 NL, Reflexes 2+, Other (Generalized weakness) Psych/Mental Status: Mental status NL, Mood NL Labs/Xrays Labs Test 04/02/25 23:15 04/02/25 20:38 04/02/25 20:13 04/02/25 20:05 Range/Units Troponin I High Sensitivity 11 </=34 ng/L Urine Color Yellow Yellow Urine Clarity Clear Clear Urine pH 5.5 5.0-9.0 Urine Specific [place] 1.015 1.001-1.035 Urine Protein Trace H Negative Urine Ketones Negative Negative Urine Blood Negative Negative /uL Urine Nitrite Negative Negative Urine Bilirubin Negative Negative Urine Urobilinogen Normal Negative mg/dL Urine Leukocyte Esterase Negative Negative /uL Urine RBC 1 0 - 4 /hpf Urine Microscopic WBC 1 0-5 /HPF Urine Squamous Epithelial Cells None seen <5 /hpf Urine Bacteria None seen None Seen /hpf Urine Mucus Few None Seen Urine Glucose Normal Normal mg/dL Urine Opiates Screen Neg NEGATIVE Urine Fentanyl Screen Neg NEGATIVE Urine Barbiturates Screen Neg NEGATIVE Urine Phencyclidine Screen Neg NEGATIVE Urine Amphetamines Screen Neg NEGATIVE Urine Benzodiazepines Screen Neg NEGATIVE Urine Cocaine Screen Neg NEGATIVE Urine Cannabinoids Screen Neg NEGATIVE Influenza Type A Antigen Negative Negative Influenza Type B Antigen Negative Negative SARS-CoV-2 Antigen (Rapid) Negative NEGATIVE Blood Gas Specimen Type Capillary Blood Gas Sample Site Left radial Blood Gas Patient Temperature 37.0 Arterial Blood Date Drawn [id number] Alex Test Yes Capillary Blood pH 7.355 7.350-7.450 Capillary Blood PCO2 74.0 H 32.0-45.0 mmHg Capillary Blood PO2 83.1 83.0-108.0 mmHg Capillary Blood HCO3 40.4 H 21.0-28.0 mmol/L Capillary Blood Base Excess 12.2 H -2.0-3.0 mmol/L Capillary Blood Oxygen Saturation 95.6 94.0-98.0 % Capillary Blood Oxyhemoglobin 94.6 94.0-98.0 % Capillary Blood Carboxyhemoglobin 0.5 0.5-1.5 % Capillary Blood Methemoglobin 0.5 0.0-1.5 % Capillary Blood Hemoglobin 11.3 L 12.0-16.0 g/dL Blood Gas Modality Nasal cannula FiO2 % 60.0 Blood Gas Critical Value Read Back Yes Blood Gas Notified Whom shayne Perdomo Blood Gas Notified Time [id number] Blood Gas Notified By Rt ananda Rodriguez 04/02/25 20:04 04/02/25 20:00 Range/Units White Blood Count 22.5 H 4.4-10.8 10^3/uL Red Blood Count 3.09 L 4.0-5.20 10^6/uL Hemoglobin 9.7 L 12.2-16.2 g/dL Hematocrit 29.5 L 36.0-46.0 % Mean Corpuscular Volume 95.6 80.0-100.0 fL Mean Corpuscular Hemoglobin 31.2 28.0-32.0 pg Mean Corpuscular Hemoglobin Concent 32.7 32.0-36.0 g/dL Red Cell Distribution Width 14.1 11.8-14.3 % Platelet Count 236 140-450 10^3/uL Mean Platelet Volume 8.2 6.9-10.8 fL Neutrophils (%) (Auto) 89.3 H 37.0-80.0 % Lymphocytes (%) (Auto) 3.6 L 10.0-50.0 % Monocytes (%) (Auto) 6.8 0.0-12.0 % Eosinophils (%) (Auto) 0.0 0.0-7.0 % Basophils (%) (Auto) 0.3 0.0-2.0 % Neutrophils # (Auto) 20.1 H 1.6-8.6 10 ^3/uL Lymphocytes # (Auto) 0.8 0.4-5.4 10 ^3/uL Monocytes # (Auto) 1.5 H 0-1.3 10 ^3/uL Eosinophils # (Auto) 0 0-0.8 10 ^3/uL Basophils # (Auto) 0.1 0-0.2 10 ^3/uL Nucleated Red Blood Cells 0.0 % Prothrombin Time 10.4 9.3-11.8 sec Prothrombin Time INR 0.98 0.9-1.15 Sodium Level 133 L 136-145 mmol/L Potassium Level 4.7 3.5-5.1 mmol/L Chloride Level 90 L 98-107 mmol/L Carbon Dioxide Level 37 H 20-31 mmol/L Anion Gap 6 5-15 Blood Urea Nitrogen 10 9-23 mg/dL Creatinine 0.64 0.550-1.02 mg/dL Glomerular Filtration Rate Calc 100 >90 mL/min BUN/Creatinine Ratio 15.6 10.0-20.0 Serum Glucose 92 74-106 mg/dL Calcium Level 7.9 L 8.7-10.4 mg/dL Magnesium Level 1.6 1.6-2.6 mg/dL Total Bilirubin 0.7 0.2-1.0 mg/dL Aspartate Amino Transferase (AST) 48 H 13-40 U/L Alanine Aminotransferase (ALT) 49 H 7-40 U/L Alkaline Phosphatase 67 46-116 U/L B-Type Natriuretic Peptide 38.81 0-100 pg/mL Total Protein 6.0 5.7-8.2 g/dL Albumin 3.5 3.2-4.8 g/dL Lipase 19 12-53 U/L Plasma/Serum Blood Alcohol < 3.0 <10 mg/dL Lactic Acid Level 1.2 0.4-2.0 mmol/L PATIENT: FLACA FLAHERTY ACCT: [id number] UNIT: [id number] : 1965 LOC: ER ROOM / BED: / AGE / SEX: 59 / F ADM STATUS: REG ER SERVICE 34 ORDERING PHYSICIAN: KAEL ROBERTS MD PROCEDURE(s): CXR1 - CHEST XRAY 1 VIEW REASON: [facility] ORDER NUMBER(s): [id number], ACCESSION NUMBER(s): [id number] CLINICAL HISTORY: AMS TECHNIQUE: Single view of the chest was obtained. COMPARISON: CT CHST AB PEL WO CON-NO IV/ORAL on DOS: 02/27/23, CXRP on DOS: 02/07/22, CHEST PORTABLE on DOS: 02/07/22, CHEST PORTABLE on DOS: 01/23/22, CHEST PORTABLE on DOS: 09/08/20 FINDINGS: The heart size and pulmonary vasculature are normal. There are patchy [id number]-dhlg-left bibasilar opacities. IMPRESSION: Patchy flsob-[id number]-fjop-left bibasilar opacities, favoring infection. SEPSIS Sepsis Screen Date sepsis recognized/suspect: Apr 02, 2025 Time Sepsis recognized/suspect: 2217 Recent Procedure: No On Antibiotic Therapy: No Respiratory Rate >20: No Heart Rate >90: Yes Temp<36 C (96.8 F) or >38.3 C: No SBP <90 or MAP <65 mmHG: No New Acute Mental Status Change: No Is the patient on CPAP, BIPAP,: No Physician Orders Chest Xray 1 View (04/02/25 19:35) Electrocardigram (04/02/25 19:35) Blood Culture (04/02/25 19:35) Abg W/ Co-Ox (04/02/25 19:35) Saline Lock (04/02/25 19:35) Psychiatric Aide (04/02/25 ) Straight Cath. (04/02/25 ) Electrocardigram (04/02/25 21:21) Insert/Manage Urinary Catheter QSHIFT (04/02/25 20:32) Metronidazole 500mg/100ml (Flagyl 500mg/ (04/03/25 06:00) Albuterol Medneb (Ventolin Medneb) (04/02/25 23:15) Ipratropium Medneb (Atrovent Medneb) (04/02/25 23:15) Methylprednisolone Sod Succ (Solu Medrol (04/03/25 10:00) Famotidine Injection (Pepcid Injection) (04/03/25 10:00) Type And Screen (04/02/25 23:09) Allergies (04/02/25 23:09) Code Status (04/02/25 23:09) Sodium Chloride 0.9% (04/02/25 23:15) Oxygen Per Hour (04/02/25 23:09) Hydrocodone-Acet 5/325mg Tab ([place] (04/02/25 23:15) Ondansetron Hcl (Zofran) (04/02/25 23:15) Docusate Sodium Capsule (Colace Capsule) (04/02/25 23:15) Fall Risk Precautions In Place QSHIFT (04/02/25 23:09) Complete Blood Count (04/03/25 04:00) Comprehensive Metabolic Panel (04/03/25 04:00) Cardiac Diet-2gna,Lofat,Lochol (04/03/25 Breakfast) Condition: Serious (04/02/25 23:09) Acetaminophen Tablet (Tylenol Tablet) (04/02/25 23:15) Maintain Bed Rest (04/02/25 23:09) Sequential Compression Device (04/02/25 ) Azithromycin 500mg/ 250ml (Zithromax 50 (04/02/25 23:45) Azithromycin 500mg/ 250ml (Zithromax 50 (04/04/25 10:00) Metronidazole 500mg/100ml (Flagyl 500mg/ (04/02/25 23:45) Vital Signs Date Time Temp Pulse Resp B/P (MAP) Pulse Ox O2 Delivery O2 Flow Rate FiO2 04/02/25 23:35 97.6 104 18 94/54 98 5.0 97.6 04/02/25 22:00 104 18 94/54 (67) 98 04/02/25 21:00 111 19 93/56 (68) 97 04/02/25 20:30 122 20 102/58 (73) 91 04/02/25 19:59 22 90 Nasal Cannula* 5 40 04/02/25 19:48 135 04/02/25 19:46 97.6 134 28 123/60 (81) 90 97.6 04/02/25 19:45 135 90 90 Nasal Cannula* 5 40 04/02/25 19:30 98.9 130 20 111/72 94 98.9 Laboratory Tests Test 04/02/25 20:00 04/02/25 20:04 Lactic Acid Level 1.2 mmol/L (0.4-2.0) White Blood Count 22.5 10^3/uL (4.4-10.8) H Medications Medications Dose Ordered Sig/Guy Route Start Time Stop Time Status Last Admin Dose Admin Albuterol 2.5 mg ONCE ONCE NEB 04/02/25 19:45 04/02/25 19:46 DC 04/02/25 19:49 2.5 MG Ceftriaxone Sodium 50 ml @ 100 mls/hr ONCE ONCE IV 04/02/25 22:00 04/02/25 22:29 DC 04/02/25 22:35 100 MLS/HR Ipratropium [place] 0.5 mg ONCE ONCE NEB 04/02/25 19:45 04/02/25 19:46 DC 04/02/25 19:49 0.5 MG Methylprednisolone Sodium Succinate 80 mg ONCE ONCE IV 04/02/25 19:45 04/02/25 19:46 DC 04/02/25 20:05 80 MG Vancomycin HCl 250 ml @ 250 mls/hr ONCE ONCE IV 04/02/25 22:00 04/02/25 22:59 DC 04/02/25 23:03 250 MLS/HR Assessment/Plan Assessment/Plan COPD with acute exacerbation Leukocytosis, unspecified Elevated liver enzymes Electrolyte imbalance Pneumonia, unspecified organism Plan 1. Admit to telemetry unit 2. Breathing treatment 3. Pain control management 4. IV antibiotic management 5. Management of fluids and electrolytes 6. Consultation for hospitalist 7. Diagnostic test chest x-ray 8. DVT prophylaxis-on SCDs 9. Repeat labs CBC, CMP in a.m. 10. Home medication reviewed and reconciled 11. Continue with current medical management 12. Treatment plan discussed with patient and RN. Patient verbalized understanding. Plan discussed with: Patient, Other (RN) My Orders Orders - DANE NICHOLAS DNP Procedure Category Date Status Time Metronidazole PHA 04/03/25 In Process 500mg/100ml (Flagyl 06:00 Albuterol Medneb PHA 04/02/25 In Process (Ventolin Medneb) 23:15 Ipratropium Medneb PHA 04/02/25 In Process (Atrovent Medneb) 23:15 Methylprednisolone PHA 04/03/25 In Process Sod Succ (Solu Medrol 10:00 Famotidine Injection PHA 04/03/25 In Process (Pepcid Injection) 10:00 Type And Screen BBK 04/02/25 In Process 23:09 Allergies SAMMY 04/02/25 In Process 23:09 Code Status CODE 04/02/25 Transmitted 23:09 Sodium Chloride 0.9% PHA 04/02/25 In Process 23:15 Oxygen Per Hour RT 04/02/25 Transmitted 23:09 Hydrocodone-Acet PHA 04/02/25 In Process 5/325mg Tab ([place] 23:15 Ondansetron Hcl PHA 04/02/25 In Process (Zofran) 23:15 Docusate Sodium PHA 04/02/25 In Process Capsule (Colace 23:15 Fall Risk Precautions SAMMY 04/02/[address] 23:09 Complete Blood Count LAB 04/03/25 Verified 04:00 Comprehensive LAB 04/03/25 Verified Metabolic Panel 04:00 Cardiac DIET 04/03/25 Transmitted Diet-2gna,Lofat,Lochol Breakfast Condition: Serious SAMMY 04/02/25 In Process 23:09 Acetaminophen Tablet PHA 04/02/25 In Process (Tylenol Tablet) 23:15 Maintain Bed Rest SAMMY 04/02/25 In Process 23:09 Sequential SAMMY 04/02/25 In Process Compression Device Azithromycin 500mg/ PHA 04/02/25 In Process 250ml (Zithromax 50 23:45 Azithromycin 500mg/ PHA 04/04/25 In Process 250ml (Zithromax 50 10:00 Metronidazole PHA 04/02/25 In Process 500mg/100ml (Flagyl 23:45 Problem List: (1) COPD with acute exacerbation (2) Leukocytosis, unspecified (3) Elevated liver enzymes (4) Electrolyte imbalance (5) Pneumonia, unspecified organism Date of Service: Apr 02, 2025 Billing Provider: DANE NICHOLAS DNP Common Visit Codes: [id number] INP/OBS CARE (HIGH) DANE NICHOLAS DNP Apr 02, 2025 23:57
[2025-04-03] VITALS (9 sets, daily range): BP systolic 73–121; BP diastolic 39–80; PULSE 45–105; RESP 16–22; O2SAT 91–100
[2025-04-03] MEDS ORDERED: MORPHINE SULFATE INJ 2 MG/ml SYRG IV PRN
[2025-04-03] MEDS ORDERED: NITROGLYCERIN 0.4 MG SL TAB SL PRN
[2025-04-03] MEDS: CALCIUM GLUC 1,000mg/50ml-NS 50 ML IV ONE (00:08)
[2025-04-03] MEDS: SODIUM CHLORIDE 0.9% 1,000 ML IV SCH (00:18)
[2025-04-03] MEDS: AZITHROMYCIN 500MG/250ML 250 ML IV ONE (01:47)
[2025-04-03] MEDS: MIDODRINE HCL 10 MG TAB PO ONE (02:39)
[2025-04-03] MEDS: ALBUTEROL SULF 2.5 MG/0.5ML(0.5%) NEB SOLN NEB PRN (03:44)
[2025-04-03] MEDS: IPRATROPIUM BROM 0.5 MG/2.5ML INH SOL NEB PRN (03:44)
[2025-04-03 07:44] LABS: Hematocrit 32.2 % (36.0-46.0); Hemoglobin 10.8 g/dL (12.2-16.2); Mean Corpuscular Hemoglobin 32.4 pg (28.0-32.0); Mean Corpuscular Volume 96.3 fL (80.0-100.0)
[2025-04-03 07:57] LABS: Anion Gap 6 (5-15); BUN/Creatinine Ratio 15.5 (10.0-20.0); Blood Urea Nitrogen 9 mg/dL (9-23); Potassium 4.5 mmol/L (3.5-5.1); Total Protein 5.9 g/dL (5.7-8.2)
[2025-04-03 07:59] LABS: Alanine Aminotransferase 49 U/L (7-40); Albumin 3.5 g/dL (3.2-4.8); Bilirubin, Total 0.3 mg/dL (0.2-1.0); Calcium 8.5 mg/dL (8.7-10.4); Carbon Dioxide 38 mmol/L (20-31); Chloride 88 mmol/L (98-107); Glucose 142 mg/dL (74-106); Sodium 132 mmol/L (136-145)
[2025-04-03 08:11] LABS: Alkaline Phosphatase 75 U/L (46-116)
[2025-04-03 08:16] LABS: Total Cells Counted 100.0 (100)
[2025-04-03] MEDS: FAMOTIDINE (10MG/ML) 2ML VL IV SCH (09:37)
[2025-04-03] MEDS: methylPREDNISolone SOD SUCC 40 MG/ML VL IV SCH (09:37)
[2025-04-03] MEDS: MIDAZOLAM DRIP 100 mg/100mL NS 100 ML IV ONE (09:53)
[2025-04-03] MEDS: NOREPINEPHRINE 8 MG/250ML KIT 250 ML IV SCH (10:00)
[2025-04-03] MEDS: MIDAZOLAM DRIP 100 mg/100mL NS 100 ML IV SCH (10:00)
[2025-04-03] MEDS ORDERED: NOREPINEPHRINE 8 MG/250ML KIT 250 ML IV SCH (10:00)
[2025-04-03] MEDS: ROCURONIUM 10MG/ML 10ML VIAL IV ONE ×2 (10:01→10:09)
[2025-04-03] MEDS: NOREPINEPHRINE 8 MG/250ML KIT 250 ML IV ONE (10:01)
[2025-04-03] MEDS: ETOMIDATE (2MG/ML) 20ML VIAL IV ONE ×2 (10:02→10:09)
--- NOTE | 2025-04-03 10:28 | DVHNC2 ---
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: Attending Physician Indication: Hypotension, CVP monitoring Room prepared for procedure: Yes Floor Scraper performed hand hygien: Yes Maximal sterile barrier precau: Mask/Eye shield, Sterile gown Skin Preparation: Chlorhexidine gluconate, Providine iodine Skin preparation completely dr: Yes Insertion site: Right, Femoral Central line catheter type: Gha-[id number]-xlp dialysis Number of lumens: 3 Antiseptic ointment applied to: Yes Intubation Indication: Respiratory Insufficiency Prep: Preoxygenation Pretreated with: Sedation Medicated with: Vecuronium Intubation Approach: Orotracheal Intubation size: cm (8) Date of Service: Apr 03, 2025 Billing Provider: LEAH PLASCENCIA MD Common Visit Codes: [id number] INP/OBS CARE (HIGH) Secondary Visit Codes: 48812-HQYRHGLIC STANDBY SERVICE Consultation Codes: [id number] CONSULT <45MIN Procedure Codes: [id number] LEAH PLASCENCIA MD Apr 03, 2025 10:28
[2025-04-03 11:46] LABS: Base Excess 9.4 mmol/L (-2.0-3.0)
[2025-04-03] MEDS: MIDODRINE HCL 10 MG TAB PO SCH (12:00)
--- NOTE | 2025-04-03 16:40 | DVHPN2 ---
Subjective I am assuming the care of the patient promptly on bruits deltoid obtained from the hospitalist team patient is currently intubated and sedated and there is no family member at bedside. Plan of care discussed with bedside RN. Changes from previous H/P or p: No Changes Eyes: No Pain, No Vision change, No Conjunctivae inflammation, No Eyelid inflammation, No Other, No Redness ENT: No Ear pain, No Ear discharge, No Nose pain, No Nose discharge, No Nose congestion, No Mouth pain, No Mouth swelling, No Throat pain, No Throat swelling, No Other Cardiovascular: No Chest Pain, No Palpitations, No Orthopnea, No Paroxysmal Noc. Dyspnea, No Edema, No Lt Headedness, No Other Respiratory: No Cough, No Dry; Shortness of breath; No SOB with excertion, No Wheezing, No Hemoptysis, No Pleuritic Pain, No Sputum; Other (SOB at rest) Gastrointestinal: No Nausea, No Vomiting, No Abdominal Pain, No Diarrhea, No Constipation, No Melena, No Hematochezia, No Other Genitourinary: No Dysuria, No Frequency, No Incontinence, No Hematuria, No Retention, No Other Musculoskeletal: No other, No neck pain, No shoulder pain, No arm pain, No back pain, No hand pain, No leg pain, No foot pain Skin: No Rash, No Lesions, No Jaundice, No Bruising, No Other Objective Vitals Vital Signs Date Time Temp Pulse Resp B/P (MAP) Pulse Ox O2 Delivery O2 Flow Rate FiO2 04/03/25 15:56 100.4 112 21 116/68 (84) 94 100.4 04/03/25 15:35 35 04/03/25 12:56 Mechanical Ventilator+ 04/03/25 11:44 0 Intake/Output Intake and Output 04/03/25 07:00 Intake Total 0 ml Output Total 600 ml Balance -600 ml Intake Oral 0 ml Tube Feeding 0 ml Blood Product 0 ml Other 0 ml Output Urine Total 600 ml Stool Total 0 ml Urine/Stool Mix 0 ml Gastric Drainage Total 0 ml Emesis 0 ml Chest Tube Drainage Total 0 ml Drainage Total 0 ml Blood Draw 0 ml Other 0 ml Exam HEENT pupils are reactive Neck is supple CV is S1-S2 regular rate rhythm Respiratory bilateral diminished breath sound at bases GI positive bowel sounds Extremities is no pedal edema 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 and 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 Medications Current Medications Medications Dose Ordered Sig/Guy Route Start Time Stop Time Status Last Admin Dose Admin Metronidazole 100 ml @ 100 mls/hr Q8HR IV 04/03/25 06:00 04/03/25 14:07 100 MLS/HR Azithromycin 250 ml @ 125 mls/hr DAILY IV 04/04/25 10:00 Albuterol 2.5 mg Q4HPRN PRN NEB 04/02/25 23:15 04/03/25 03:44 2.5 MG Ipratropium [place] 0.5 mg Q4HPRN PRN NEB 04/02/25 23:15 04/03/25 03:44 0.5 MG Methylprednisolone Sodium Succinate 40 mg BID IV 04/03/25 10:00 04/03/25 09:37 40 MG Famotidine 20 mg Q12HR IV 04/03/25 10:00 04/03/25 09:37 20 MG Sodium Chloride 1,000 ml @ 60 mls/hr [id number] IV 04/02/25 23:15 04/03/25 16:23 60 MLS/HR Acetaminophen/ Hydrocodone Bitart 1 tab Q4HP PRN PO 04/02/25 23:15 Ondansetron HCl 4 mg Q4HP PRN IV 04/02/25 23:15 Docusate Sodium 100 mg BIDPRN PRN PO 04/02/25 23:15 Acetaminophen 650 mg Q6HP PRN PO 04/02/25 23:15 Nitroglycerin 0.4 mg Q5MINP PRN SL 04/03/25 00:00 Morphine Sulfate 2 mg Q30M PRN IV 04/03/25 00:00 Midodrine 10 mg TID@0600,1200,1800 PO 04/03/25 12:00 Norepinephrine Bitartrate 250 ml @ 3.75 mls/hr Q24H IV 04/03/25 10:00 UNV Midazolam HCl 100 ml @ 1 mls/hr Q24H IV 04/03/25 10:00 04/03/25 10:00 1 MLS/HR Norepinephrine Bitartrate 250 ml @ 3.75 mls/hr Q24H IV 04/03/25 10:00 04/03/25 10:00 3.75 MLS/HR Laboratory Results Laboratory Tests 04/03/25 07:18 Chemistry Test 04/02/25 20:04 04/03/25 07:18 Albumin 3.5 g/dL (3.2-4.8) 3.5 g/dL (3.2-4.8) Calcium Level 7.9 mg/dL (8.7-10.4) L 8.5 mg/dL (8.7-10.4) L Magnesium Level 1.6 mg/dL (1.6-2.6) Total Protein 6.0 g/dL (5.7-8.2) 5.9 g/dL (5.7-8.2) Coagulation Test 04/02/25 20:04 Prothrombin Time 10.4 sec (9.3-11.8) Prothrombin Time INR 0.98 (0.9-1.15) Lipid panel Test 04/02/25 20:04 Lipase 19 U/L (12-53) Cardiac Markers Test 04/02/25 20:04 B-Type Natriuretic Peptide 38.81 pg/mL (0-100) LFT Test 04/02/25 20:04 04/03/25 07:18 Alanine Aminotransferase (ALT) 49 U/L (7-40) H 49 U/L (7-40) H Alkaline Phosphatase 67 U/L (46-116) 75 U/L (46-116) Aspartate Amino Transferase (AST) 48 U/L (13-40) H 45 U/L (13-40) H Total Bilirubin 0.7 mg/dL (0.2-1.0) 0.3 mg/dL (0.2-1.0) Urinalysis Test 04/02/25 20:38 Urine Color Yellow (Yellow) Urine Clarity Clear (Clear) Urine pH 5.5 (5.0-9.0) Urine Specific [place] 1.015 (1.001-1.035) Urine Protein Trace (Negative) H Urine Ketones Negative (Negative) Urine Blood Negative /uL (Negative) Urine Nitrite Negative (Negative) Urine Bilirubin Negative (Negative) Urine Urobilinogen Normal mg/dL (Negative) Urine Leukocyte Esterase Negative /uL (Negative) Urine RBC 1 /hpf (0 - 4) Urine Microscopic WBC 1 /HPF (0-5) Urine Squamous Epithelial Cells None seen /hpf (<5) Urine Bacteria None seen /hpf (None Seen) Urine Mucus Few (None Seen) Urine Glucose Normal mg/dL (Normal) Blood Gas Results Test 04/02/25 20:05 04/03/25 11:30 FiO2 % 60.0 100.0 Arterial Blood pH 7.392 (7.350-7.450) Assessment/Plan Assessment/Plan 59-year-old female with known history of chronic respiratory failure on home O2, COPD, congestive heart failure, hypertension who initially in the hospital getting shortness of breath and increased work of breathing found to have 1. Acute on chronic hypoxic respiratory failure secondary to acute COPD exacerbation/pneumonia 2. Bilateral consolidation high suspicious for pneumonia 3. Acute COPD exacerbation 4. Leukocytosis 5. Hypertension 6. Congestive heart failure currently compensated -continue vent support, daily ABG, chest x-ray, IV antibiotics pulmonary constipation and Infectious disease consultation. Plan discussed with: Other My Orders Orders - PAOLO MCPHERSON MD Procedure Category Date Status Time *Consult CONS 04/03/25 Transmitted 16:35 * Infectious [place]- Dr. CORTÉS 04/03/25 Transmitted Sylvester Coley 16:35 Date of Service: Apr 03, 2025 Billing Provider: PAOLO MCPHERSON MD Common Visit Codes: [id number] CARE 30-74 MIN PAOLO MCPHERSON MD Apr 03, 2025 16:40
[2025-04-03] MEDS ORDERED: ACETAMINOPHEN 650 MG RECT SUPP PR PRN (20:15)
[2025-04-04] VITALS (19 sets, daily range): BP systolic 108–137; BP diastolic 64–80; PULSE 69–98; RESP 20; O2SAT 95–100
[2025-04-04 06:55] LABS: Base Excess 6.2 mmol/L (-2.0-3.0)
[2025-04-04 08:38] LABS: Hematocrit 30.4 % (36.0-46.0); Hemoglobin 9.8 g/dL (12.2-16.2); Mean Corpuscular Hemoglobin 30.7 pg (28.0-32.0); Mean Corpuscular Volume 95.5 fL (80.0-100.0); Nucleated Red Blood Cells % 0.0 %
[2025-04-04 08:55] LABS: Alanine Aminotransferase 37 U/L (7-40); Alkaline Phosphatase 66 U/L (46-116); Anion Gap 9 (5-15); BUN/Creatinine Ratio 21.2 (10.0-20.0); Blood Urea Nitrogen 11 mg/dL (9-23); Potassium 3.9 mmol/L (3.5-5.1); Sodium 138 mmol/L (136-145)
[2025-04-04 08:56] LABS: Bilirubin, Total 0.5 mg/dL (0.2-1.0)
[2025-04-04 08:59] LABS: Albumin 2.9 g/dL (3.2-4.8); Calcium 8.2 mg/dL (8.7-10.4); Carbon Dioxide 31 mmol/L (20-31); Chloride 98 mmol/L (98-107); Glucose 120 mg/dL (74-106); Total Protein 5.2 g/dL (5.7-8.2)
[2025-04-04] MEDS: AZITHROMYCIN 500MG/250ML 250 ML IV SCH (10:41)
--- NOTE | 2025-04-04 18:02 | DVHPN2 ---
Subjective Patient has been intubated and sedated. Changes from previous H/P or p: No Changes Eyes: No Pain, No Vision change, No Conjunctivae inflammation, No Eyelid inflammation, No Other, No Redness ENT: No Ear pain, No Ear discharge, No Nose pain, No Nose discharge, No Nose congestion, No Mouth pain, No Mouth swelling, No Throat pain, No Throat swelling, No Other Cardiovascular: No Chest Pain, No Palpitations, No Orthopnea, No Paroxysmal Noc. Dyspnea, No Edema, No Lt Headedness, No Other Respiratory: No Cough, No Dry; Shortness of breath; No SOB with excertion, No Wheezing, No Hemoptysis, No Pleuritic Pain, No Sputum; Other (SOB at rest) Gastrointestinal: No Nausea, No Vomiting, No Abdominal Pain, No Diarrhea, No Constipation, No Melena, No Hematochezia, No Other Genitourinary: No Dysuria, No Frequency, No Incontinence, No Hematuria, No Retention, No Other Musculoskeletal: No other, No neck pain, No shoulder pain, No arm pain, No back pain, No hand pain, No leg pain, No foot pain Skin: No Rash, No Lesions, No Jaundice, No Bruising, No Other Objective Vitals Vital Signs Date Time Temp Pulse Resp B/P (MAP) Pulse Ox O2 Delivery O2 Flow Rate FiO2 04/04/25 17:30 97.2 84 20 103/71 (82) 96 97.2 04/04/25 16:03 35 04/04/25 07:30 Mechanical Ventilator+ 04/04/25 03:15 0 Intake/Output Intake and Output 04/04/25 07:00 Intake Total 1051.00 ml Output Total 725 ml Balance 326.00 ml IV Total 1051.00 ml Output Urine Total 725 ml Exam HEENT pupils are reactive Neck is supple CV is S1-S2 regular rate rhythm Respiratory bilateral diminished breath sound at bases GI positive bowel sounds Extremities is no pedal edema [employer] intubated and sedated Medications Current Medications Medications Dose Ordered Sig/Guy Route Start Time Stop Time Status Last Admin Dose Admin Metronidazole 100 ml @ 100 mls/hr Q8HR IV 04/03/25 06:00 04/04/25 14:18 100 MLS/HR Azithromycin 250 ml @ 125 mls/hr DAILY IV 04/04/25 10:00 04/04/25 10:41 125 MLS/HR Albuterol 2.5 mg Q4HPRN PRN NEB 04/02/25 23:15 04/04/25 14:23 2.5 MG Ipratropium [place] 0.5 mg Q4HPRN PRN NEB 04/02/25 23:15 04/04/25 14:23 0.5 MG Methylprednisolone Sodium Succinate 40 mg BID IV 04/03/25 10:00 04/04/25 10:40 40 MG Famotidine 20 mg Q12HR IV 04/03/25 10:00 04/04/25 10:40 20 MG Sodium Chloride 1,000 ml @ 60 mls/hr [id number] IV 04/02/25 23:15 04/03/25 16:23 60 MLS/HR Acetaminophen/ Hydrocodone Bitart 1 tab Q4HP PRN PO 04/02/25 23:15 Ondansetron HCl 4 mg Q4HP PRN IV 04/02/25 23:15 Docusate Sodium 100 mg BIDPRN PRN PO 04/02/25 23:15 Acetaminophen 650 mg Q6HP PRN PO 04/02/25 23:15 Nitroglycerin 0.4 mg Q5MINP PRN SL 04/03/25 00:00 Morphine Sulfate 2 mg Q30M PRN IV 04/03/25 00:00 Midodrine 10 mg TID@0600,1200,1800 PO 04/03/25 12:00 Norepinephrine Bitartrate 250 ml @ 3.75 mls/hr Q24H IV 04/03/25 10:00 UNV Midazolam HCl 100 ml @ 1 mls/hr Q24H IV 04/03/25 10:00 04/04/25 10:34 10 MLS/HR Norepinephrine Bitartrate 250 ml @ 3.75 mls/hr Q24H IV 04/03/25 10:00 04/04/25 01:46 11.25 MLS/HR Acetaminophen 650 mg Q6HP PRN [place] 04/03/25 20:15 Laboratory Results Laboratory Tests 04/04/25 08:22 Chemistry Test 04/04/25 08:22 Albumin 2.9 g/dL (3.2-4.8) L Calcium Level 8.2 mg/dL (8.7-10.4) L Total Protein 5.2 g/dL (5.7-8.2) L LFT Test 04/04/25 08:22 Alanine Aminotransferase (ALT) 37 U/L (7-40) Alkaline Phosphatase 66 U/L (46-116) Aspartate Amino Transferase (AST) 34 U/L (13-40) Total Bilirubin 0.5 mg/dL (0.2-1.0) Urinalysis Test 04/02/25 20:38 Urine Color Yellow (Yellow) Urine Clarity Clear (Clear) Urine pH 5.5 (5.0-9.0) Urine Specific [place] 1.015 (1.001-1.035) Urine Protein Trace (Negative) H Urine Ketones Negative (Negative) Urine Blood Negative /uL (Negative) Urine Nitrite Negative (Negative) Urine Bilirubin Negative (Negative) Urine Urobilinogen Normal mg/dL (Negative) Urine Leukocyte Esterase Negative /uL (Negative) Urine RBC 1 /hpf (0 - 4) Urine Microscopic WBC 1 /HPF (0-5) Urine Squamous Epithelial Cells None seen /hpf (<5) Urine Bacteria None seen /hpf (None Seen) Urine Mucus Few (None Seen) Urine Glucose Normal mg/dL (Normal) Blood Gas Results Test 04/04/25 06:42 Arterial Blood pH 7.519 (7.350-7.450) FiO2 % 35.0 Microbiology Microbiology Date/Time Source Procedure Growth Status 04/03/25 10:00 Sputum Endotracheal Wash Gram Stain - Final Resulted 04/03/25 10:00 Sputum Endotracheal Wash Respiratory Culture - Preliminary Resulted 04/02/25 20:04 Blood Blood Culture - Preliminary NO GROWTH AFTER 24 HOURS OF INCUBATION. Resulted Assessment/Plan Assessment/Plan 59-year-old female with known history of chronic respiratory failure on home O2, COPD, congestive heart failure, hypertension who initially in the hospital getting shortness of breath and increased work of breathing found to have 1. Acute on chronic hypoxic respiratory failure secondary to acute COPD exacerbation/pneumonia 2. Bilateral consolidation high suspicious for pneumonia 3. Acute COPD exacerbation 4. Leukocytosis 5. Hypertension 6. Congestive heart failure currently compensated -continue vent support, daily ABG, chest x-ray, IV antibiotics pulmonary constipation and Infectious disease consultation. Plan discussed with: Other My Orders Orders - PAOLO MCPHERSON MD Procedure Category Date Status Time Npo (Nothing By DIET 04/04/25 Transmitted Mouth) Diet Lunch * Dietary Consult CONS 04/04/25 Transmitted 13:02 Date of Service: Apr 04, 2025 Billing Provider: PAOLO MCPHERSON MD Common Visit Codes: [id number] INP/OBS CARE(HIGH) PAOLO MCPHERSON MD Apr 04, 2025 18:02
--- NOTE | 2025-04-04 22:07 | DVHINCON2 ---
Date of service: Apr 04, [address] Hunter Reason for Consultation Acute hypoxic respiratory failure requiring mechanical ventilator. History of Present Illness A 59-year-old woman with past medical history of COPD, CHF, hypotension, hyperlipidemia, GERD and anxiety who presented to ED on 04/02/25 with complaint of shortness of breath. Daughter reported patient has been experiencing shortness of breaths. Pt was desaturating on room air to 70%, increased work of breathing. She was given breathing treatment and placed on oxygen at 6 L/min via nasal cannula and O2 saturation improved to 94% en route to our facility ED. Patient was seen and evaluated in the ED. Labs showed WBC 22.5, hemoglobin 9.7, hematocrit 29.5, platelets 236, sodium 133, potassium 4.7, BUN 10, creatinine 0.64, GFR 100, glucose 92, calcium 7.9, BNP 38.81, lipase 19, troponin 7, AST 48, ALT 49. Blood pressure 94/54, heart rate 104, temperature 97.6 F, O2 saturation 94% on oxygen. Chest x-ray revealing patchy right greater than left bibasilar opacity, favoring infection. Patient was admitted for further care. Pulmonary consultation is requested for evaluation and management of acute hypoxic respiratory failure requiring mechanical ventilator. Review of Systems: Unable to obtain d/t intubated status Past Medical History Anxiety, CHF, COPD, GERD, High Lipids, Hypotension Past Surgical History Tonsillectomy Medications: Reviewed. Allergies: Penicillin Family History: No family history of premature CAD. No family history of lung disorders. Social History: Nonsmoker. No alcohol or illicit drug use. Family History: Bipolar disorder G8 SISTER Diabetes mellitus G8 SISTER FH: heart disease G8 MOTHER FH: schizophrenia G8 SISTER Hypertension G8 MOTHER Allergies: Coded Allergies: Penicillins (Verified Allergy, Unknown, 02/07/22) Home Meds Active Scripts Pantoprazole Sodium Sesquihydr (Protonix) 40 Mg Tab, 40 MG PO DAILY PRN for 7 Days, #7 TAB Prov:LEAH PLASCENCIA MD 01/23/22 Prednisone (Prednisone) 20 Mg Tab, 20 MG PO DAILY for 7 Days, #7 MG Prov:LEAH PLASCENCIA MD 01/23/22 Reported Medications Umeclidinium [place] (Incruse Ellipta) 62.5 Mcg/Inh Inh, 1 PUFF INH DAILYPRN 2/19/21 Beclomethasone Dipropionate (Qvar Redihaler) 80 Mcg/Act Aer, 1 PUFF INH BID 07/30/20 Current Medications Current Medications Medications (Trade) Dose Ordered Sig/Guy Route PRN Reason Start Time Stop Time Status Last Admin Azithromycin 250 ml @ 125 mls/hr DAILY IV 04/04/25 10:00 04/04/25 10:41 Vital Signs Vital Signs Date Time Temp Pulse Resp B/P (MAP) Pulse Ox O2 Delivery O2 Flow Rate FiO2 04/04/25 21:57 94 20 125/80 (95) 98 35 04/04/25 19:30 Mechanical Ventilator+ 0 04/04/25 19:00 97.5 97.5 Physical Exam Gen.: Patient lying in bed in medical ICU. Sedated, intubated on mechanical ventilator. Head: Normocephalic, atraumatic. Eyes: PERRLA. Ears: Normal external anatomy. Throat: Endotracheal tube and orogastric tube in place. Neck: Supple, trachea midline. Chest: Transmitted breath sounds bilaterally. Decreased air entry bilaterally. No wheezing. Bibasilar crackles. Cardiovascular: Positive S1, positive S2. Regular rate and rhythm. Abdomen: Positive bowel sounds in all 4 quadrants. Soft, nontender, nondistended. : Chin in place. Normal external genitalia. Rectal: Deferred. Skin: Warm, dry. Intact. Extremities: 2+ radial pulses bilaterally. No lower extremity edema. Neuro: Sedated. Labs/Diagnostic Data Labs Test 04/04/25 08:22 04/04/25 06:42 04/03/25 11:30 04/03/25 07:18 Range/Units White Blood Count 26.6 H 4.4-10.8 10^3/uL Red Blood Count 3.18 L 4.0-5.20 10^6/uL Hemoglobin 9.8 L 12.2-16.2 g/dL Hematocrit 30.4 L 36.0-46.0 % Mean Corpuscular Volume 95.5 80.0-100.0 fL Mean Corpuscular Hemoglobin 30.7 28.0-32.0 pg Mean Corpuscular Hemoglobin Concent 32.1 32.0-36.0 g/dL Red Cell Distribution Width 14.5 H 11.8-14.3 % Platelet Count 251 140-450 10^3/uL Mean Platelet Volume 8.0 6.9-10.8 fL Neutrophils (%) (Auto) 94.0 H 37.0-80.0 % Lymphocytes (%) (Auto) 3.2 L 10.0-50.0 % Monocytes (%) (Auto) 2.6 0.0-12.0 % Eosinophils (%) (Auto) 0.0 0.0-7.0 % Basophils (%) (Auto) 0.2 0.0-2.0 % Neutrophils # (Auto) 25.1 H 1.6-8.6 10 ^3/uL Lymphocytes # (Auto) 0.8 0.4-5.4 10 ^3/uL Monocytes # (Auto) 0.7 0-1.3 10 ^3/uL Eosinophils # (Auto) 0 0-0.8 10 ^3/uL Basophils # (Auto) 0 0-0.2 10 ^3/uL Nucleated Red Blood Cells 0.0 % Sodium Level 138 # 136-145 mmol/L Potassium Level 3.9 3.5-5.1 mmol/L Chloride Level 98 # 98-107 mmol/L Carbon Dioxide Level 31 20-31 mmol/L Anion Gap 9 5-15 Blood Urea Nitrogen 11 9-23 mg/dL Creatinine 0.52 L 0.550-1.02 mg/dL Glomerular Filtration Rate Calc 106 >90 mL/min BUN/Creatinine Ratio 21.2 H 10.0-20.0 Serum Glucose 120 H 74-106 mg/dL Calcium Level 8.2 L 8.7-10.4 mg/dL Total Bilirubin 0.5 0.2-1.0 mg/dL Aspartate Amino Transferase (AST) 34 13-40 U/L Alanine Aminotransferase (ALT) 37 7-40 U/L Alkaline Phosphatase 66 46-116 U/L Total Protein 5.2 L 5.7-8.2 g/dL Albumin 2.9 L 3.2-4.8 g/dL Blood Gas Specimen Type Arterial Blood Gas Sample Site Right radial Blood Gas Patient Temperature 37.0 Arterial Blood Date Drawn [id number] Arterial Blood pH 7.519 H 7.350-7.450 Arterial Blood Partial Pressure CO2 36.8 32.0-45.0 mmHg Arterial Blood Partial Pressure O2 71.6 L 83.0-108.0 mmHg Arterial Blood HCO3 29.3 H 21.0-28.0 mmol/L Arterial Blood Oxygen Saturation 95.4 94.0-98.0 % Arterial Blood Base Excess 6.2 H -2.0-3.0 mmol/L Arterial Blood Oxyhemoglobin 94.9 94.0-98.0 % Arterial Blood Carboxyhemoglobin 0.1 L 0.5-1.5 % Arterial Blood Methemoglobin 0.4 0.0-1.5 % Alex Test Modified Blood Gas Total Hemoglobin 10.80 L 12.0-16.0 g/dL Blood Gas Set Respiration Rate 20.0 Blood Gas Modality Vent - ac Blood Gas Spontaneous Rate 20 FiO2 % 35.0 Blood Gas Tidal Volume 350.0 Blood Gas PEEP or CPAP 5.0 Blood Gas Critical Value Read Back yes Blood Gas Notified Whom simeon perales Blood Gas Notified Time [id number] Blood Gas Notified By richardson queen Differential Total Cells Counted 100.0 100 Neutrophils % (Manual) 86 H 37.0-80.0 Band Neutrophils % (Manual) 6 Lymphocytes % (Manual) 4 L 10.0-50.0 Monocytes % (Manual) 4 0-12 Eosinophils % (Manual) 0 0-7 Basophils % (Manual) 0 0.0-2.0 Metamyelocytes % (manual) 0 Myelocytes % (Manual) 0 Promyelocytes % (Manual) 0 Blast Cells % (Manual) 0 Reactive Lymphocytes 0 Platelet Estimate Adequate Test 04/02/25 23:15 04/02/25 20:38 04/02/25 20:13 04/02/25 20:05 Range/Units Troponin I High Sensitivity 11 </=34 ng/L Urine Color Yellow Yellow Urine Clarity Clear Clear Urine pH 5.5 5.0-9.0 Urine Specific [place] 1.015 1.001-1.035 Urine Protein Trace H Negative Urine Ketones Negative Negative Urine Blood Negative Negative /uL Urine Nitrite Negative Negative Urine Bilirubin Negative Negative Urine Urobilinogen Normal Negative mg/dL Urine Leukocyte Esterase Negative Negative /uL Urine RBC 1 0 - 4 /hpf Urine Microscopic WBC 1 0-5 /HPF Urine Squamous Epithelial Cells None seen <5 /hpf Urine Bacteria None seen None Seen /hpf Urine Mucus Few None Seen Urine Glucose Normal Normal mg/dL Urine Opiates Screen Neg NEGATIVE Urine Fentanyl Screen Neg NEGATIVE Urine Barbiturates Screen Neg NEGATIVE Urine Phencyclidine Screen Neg NEGATIVE Urine Amphetamines Screen Neg NEGATIVE Urine Benzodiazepines Screen Neg NEGATIVE Urine Cocaine Screen Neg NEGATIVE Urine Cannabinoids Screen Neg NEGATIVE Influenza Type A Antigen Negative Negative Influenza Type B Antigen Negative Negative SARS-CoV-2 Antigen (Rapid) Negative NEGATIVE Capillary Blood pH 7.355 7.350-7.450 Capillary Blood PCO2 74.0 H 32.0-45.0 mmHg Capillary Blood PO2 83.1 83.0-108.0 mmHg Capillary Blood HCO3 40.4 H 21.0-28.0 mmol/L Capillary Blood Base Excess 12.2 H -2.0-3.0 mmol/L Capillary Blood Oxygen Saturation 95.6 94.0-98.0 % Capillary Blood Oxyhemoglobin 94.6 94.0-98.0 % Capillary Blood Carboxyhemoglobin 0.5 0.5-1.5 % Capillary Blood Methemoglobin 0.5 0.0-1.5 % Capillary Blood Hemoglobin 11.3 L 12.0-16.0 g/dL Test 04/02/25 20:04 04/02/25 20:00 Range/Units Prothrombin Time 10.4 9.3-11.8 sec Prothrombin Time INR 0.98 0.9-1.15 Magnesium Level 1.6 1.6-2.6 mg/dL B-Type Natriuretic Peptide 38.81 0-100 pg/mL Lipase 19 12-53 U/L Plasma/Serum Blood Alcohol < 3.0 <10 mg/dL Lactic Acid Level 1.2 0.4-2.0 mmol/L Microbiology Date/Time Source Procedure Growth Status 04/03/25 10:00 Sputum Endotracheal Wash Gram Stain - Final Resulted 04/03/25 10:00 Sputum Endotracheal Wash Respiratory Culture - Preliminary Resulted 04/02/25 20:04 Blood Blood Culture - Preliminary NO GROWTH AFTER 48 HOURS OF INCUBATION. Resulted Assessment Impression: Acute hypoxic respiratory failure On mechanical ventilator Acute COPD exacerbation Congestive heart failure Leukocytosis Cachexia, BMI 16.5 Plan: s/p intubation on mechanical ventilator. On AC mode; RR 20, VT 350, PEEP 5, FiO2 35% Titrate FIO2 to keep O2 saturation above 90%. VAP bundle. Daily ABG and CXR while intubated Sedate for ventilator synchrony Continue bronchodilators. Continue antibiotics Monitor WBC - 26.6 K Continue steroids Pressors as necessary for hemodynamic support. Titrate to keep MAP greater than 65 mmHg. Follow up Cardiology recs Monitor hemoglobin - 9.8 g/dL Transfuse if less than 7.0 g/dL. Monitor renal function. Monitor electrolytes. Supplement as necessary. Monitor ins and outs. GI/DVT prophylaxis. Prognosis: Poor given patient's multiple co-morbidities. Condition: Critical Rest of plan per hospitalist and other consultants. A total of 35 minutes of critical care time was spent reviewing the patient record, examining the patient, making a diagnostic and therapeutic plan, discussing this plan with the medical personnel, following up on diagnostic studies and following the patient for clinical stability excluding any and all procedures. At least 50% of this time was spent in direct, [id number] contact. Thank you, Dr. Hunter, for allowing me to participate in this patient's care. Further recommendations will depend on the patient's clinical course. Please do not hesitate to contact me if you have any questions or concerns. This medical document was created using an electronic medical record system with [employer] dictation system. Although these documentations are being carefully reviewed, there may still be some phonetic and typographical changes. The errors are purely typographical, due to imperfection on the software program, and do not reflect any compromise in the patient's medical care. Plan discussed with: Other (RN/) Visit Coding Pulmonary Billing Provider: LIDIA KLEIN MD Date of Service if different f: Apr 04, 2025 Common Visit Codes: [id number] CARE 30-74 MIN LIDIA KLEIN MD Apr 04, 2025 22:07
--- NOTE | 2025-04-04 23:56 | DVHINCON2 ---
Date of service: Apr 03, 2025 Family History: Bipolar disorder G8 SISTER Diabetes mellitus G8 SISTER FH: heart disease G8 MOTHER FH: schizophrenia G8 SISTER Hypertension G8 MOTHER Allergies: Coded Allergies: Penicillins (Verified Allergy, Unknown, 02/07/22) Home Meds Active Scripts Pantoprazole Sodium Sesquihydr (Protonix) 40 Mg Tab, 40 MG PO DAILY PRN for 7 Days, #7 TAB Prov:LEAH PLASCENCIA MD 01/23/22 Prednisone (Prednisone) 20 Mg Tab, 20 MG PO DAILY for 7 Days, #7 MG Prov:LEAH PLASCENCIA MD 01/23/22 Reported Medications Umeclidinium Rowe (Incruse Ellipta) 62.5 Mcg/Inh Inh, 1 PUFF INH DAILYPRN 07/30/20 Beclomethasone Dipropionate (Qvar Redihaler) 80 Mcg/Act Aer, 1 PUFF INH BID 07/30/20 Current Medications Current Medications Medications (Trade) Dose Ordered Sig/Guy Route PRN Reason Start Time Stop Time Status Last Admin Azithromycin 250 ml @ 125 mls/hr DAILY IV 04/04/25 10:00 04/04/25 10:41 Vital Signs Vital Signs Date Time Temp Pulse Resp B/P (MAP) Pulse Ox O2 Delivery O2 Flow Rate FiO2 04/04/25 21:57 94 20 125/80 (95) 98 35 04/04/25 19:30 Mechanical Ventilator+ 0 04/04/25 19:00 97.5 97.5 Labs/Diagnostic Data Labs Test 04/04/25 08:22 04/04/25 06:42 04/03/25 11:30 04/03/25 07:18 Range/Units White Blood Count 26.6 H 4.4-10.8 10^3/uL Red Blood Count 3.18 L 4.0-5.20 10^6/uL Hemoglobin 9.8 L 12.2-16.2 g/dL Hematocrit 30.4 L 36.0-46.0 % Mean Corpuscular Volume 95.5 80.0-100.0 fL Mean Corpuscular Hemoglobin 30.7 28.0-32.0 pg Mean Corpuscular Hemoglobin Concent 32.1 32.0-36.0 g/dL Red Cell Distribution Width 14.5 H 11.8-14.3 % Platelet Count 251 140-450 10^3/uL Mean Platelet Volume 8.0 6.9-10.8 fL Neutrophils (%) (Auto) 94.0 H 37.0-80.0 % Lymphocytes (%) (Auto) 3.2 L 10.0-50.0 % Monocytes (%) (Auto) 2.6 0.0-12.0 % Eosinophils (%) (Auto) 0.0 0.0-7.0 % Basophils (%) (Auto) 0.2 0.0-2.0 % Neutrophils # (Auto) 25.1 H 1.6-8.6 10 ^3/uL Lymphocytes # (Auto) 0.8 0.4-5.4 10 ^3/uL Monocytes # (Auto) 0.7 0-1.3 10 ^3/uL Eosinophils # (Auto) 0 0-0.8 10 ^3/uL Basophils # (Auto) 0 0-0.2 10 ^3/uL Nucleated Red Blood Cells 0.0 % Sodium Level 138 # 136-145 mmol/L Potassium Level 3.9 3.5-5.1 mmol/L Chloride Level 98 # 98-107 mmol/L Carbon Dioxide Level 31 20-31 mmol/L Anion Gap 9 5-15 Blood Urea Nitrogen 11 9-23 mg/dL Creatinine 0.52 L 0.550-1.02 mg/dL Glomerular Filtration Rate Calc 106 >90 mL/min BUN/Creatinine Ratio 21.2 H 10.0-20.0 Serum Glucose 120 H 74-106 mg/dL Calcium Level 8.2 L 8.7-10.4 mg/dL Total Bilirubin 0.5 0.2-1.0 mg/dL Aspartate Amino Transferase (AST) 34 13-40 U/L Alanine Aminotransferase (ALT) 37 7-40 U/L Alkaline Phosphatase 66 46-116 U/L Total Protein 5.2 L 5.7-8.2 g/dL Albumin 2.9 L 3.2-4.8 g/dL Blood Gas Specimen Type Arterial Blood Gas Sample Site Right radial Blood Gas Patient Temperature 37.0 Arterial Blood Date Drawn [id number] Arterial Blood pH 7.519 H 7.350-7.450 Arterial Blood Partial Pressure CO2 36.8 32.0-45.0 mmHg Arterial Blood Partial Pressure O2 71.6 L 83.0-108.0 mmHg Arterial Blood HCO3 29.3 H 21.0-28.0 mmol/L Arterial Blood Oxygen Saturation 95.4 94.0-98.0 % Arterial Blood Base Excess 6.2 H -2.0-3.0 mmol/L Arterial Blood Oxyhemoglobin 94.9 94.0-98.0 % Arterial Blood Carboxyhemoglobin 0.1 L 0.5-1.5 % Arterial Blood Methemoglobin 0.4 0.0-1.5 % Alex Test Modified Blood Gas Total Hemoglobin 10.80 L 12.0-16.0 g/dL Blood Gas Set Respiration Rate 20.0 Blood Gas Modality Vent - ac Blood Gas Spontaneous Rate 20 FiO2 % 35.0 Blood Gas Tidal Volume 350.0 Blood Gas PEEP or CPAP 5.0 Blood Gas Critical Value Read Back yes Blood Gas Notified Whom simeon perales Blood Gas Notified Time [id number] Blood Gas Notified By richardson queen Differential Total Cells Counted 100.0 100 Neutrophils % (Manual) 86 H 37.0-80.0 Band Neutrophils % (Manual) 6 Lymphocytes % (Manual) 4 L 10.0-50.0 Monocytes % (Manual) 4 0-12 Eosinophils % (Manual) 0 0-7 Basophils % (Manual) 0 0.0-2.0 Metamyelocytes % (manual) 0 Myelocytes % (Manual) 0 Promyelocytes % (Manual) 0 Blast Cells % (Manual) 0 Reactive Lymphocytes 0 Platelet Estimate Adequate Test 04/02/25 23:15 04/02/25 20:38 04/02/25 20:13 04/02/25 20:05 Range/Units Troponin I High Sensitivity 11 </=34 ng/L Urine Color Yellow Yellow Urine Clarity Clear Clear Urine pH 5.5 5.0-9.0 Urine Specific [place] 1.015 1.001-1.035 Urine Protein Trace H Negative Urine Ketones Negative Negative Urine Blood Negative Negative /uL Urine Nitrite Negative Negative Urine Bilirubin Negative Negative Urine Urobilinogen Normal Negative mg/dL Urine Leukocyte Esterase Negative Negative /uL Urine RBC 1 0 - 4 /hpf Urine Microscopic WBC 1 0-5 /HPF Urine Squamous Epithelial Cells None seen <5 /hpf Urine Bacteria None seen None Seen /hpf Urine Mucus Few None Seen Urine Glucose Normal Normal mg/dL Urine Opiates Screen Neg NEGATIVE Urine Fentanyl Screen Neg NEGATIVE Urine Barbiturates Screen Neg NEGATIVE Urine Phencyclidine Screen Neg NEGATIVE Urine Amphetamines Screen Neg NEGATIVE Urine Benzodiazepines Screen Neg NEGATIVE Urine Cocaine Screen Neg NEGATIVE Urine Cannabinoids Screen Neg NEGATIVE Influenza Type A Antigen Negative Negative Influenza Type B Antigen Negative Negative SARS-CoV-2 Antigen (Rapid) Negative NEGATIVE Capillary Blood pH 7.355 7.350-7.450 Capillary Blood PCO2 74.0 H 32.0-45.0 mmHg Capillary Blood PO2 83.1 83.0-108.0 mmHg Capillary Blood HCO3 40.4 H 21.0-28.0 mmol/L Capillary Blood Base Excess 12.2 H -2.0-3.0 mmol/L Capillary Blood Oxygen Saturation 95.6 94.0-98.0 % Capillary Blood Oxyhemoglobin 94.6 94.0-98.0 % Capillary Blood Carboxyhemoglobin 0.5 0.5-1.5 % Capillary Blood Methemoglobin 0.5 0.0-1.5 % Capillary Blood Hemoglobin 11.3 L 12.0-16.0 g/dL Test 04/02/25 20:04 04/02/25 20:00 Range/Units Prothrombin Time 10.4 9.3-11.8 sec Prothrombin Time INR 0.98 0.9-1.15 Magnesium Level 1.6 1.6-2.6 mg/dL B-Type Natriuretic Peptide 38.81 0-100 pg/mL Lipase 19 12-53 U/L Plasma/Serum Blood Alcohol < 3.0 <10 mg/dL Lactic Acid Level 1.2 0.4-2.0 mmol/L Microbiology Date/Time Source Procedure Growth Status 04/03/25 10:00 Sputum Endotracheal Wash Gram Stain - Final Resulted 04/03/25 10:00 Sputum Endotracheal Wash Respiratory Culture - Preliminary Resulted 04/02/25 20:04 Blood Blood Culture - Preliminary NO GROWTH AFTER 48 HOURS OF INCUBATION. Resulted Problems(with codes): (1) Pneumonia, unspecified organism (2) COPD with acute exacerbation (3) Elevated liver enzymes (4) Leukocytosis, unspecified (5) Leukocytosis (6) Hypotension (7) Acute respiratory failure Plan/Recommendation Today's Encounter Date: 04/06/2025 Patient Name: Pao Provider: Gordon Coley ASSESSMENT AND PLAN: ID Problem List: -Community-acquired pneumonia (CXR: patchy right > left opacities) -Septic shock (ICU transfer in the setting of pneumonia; BP 94/54 noted) -Acute on chronic respiratory failure with hypercapnia (pH 7.35, pCO2 83.1) requiring mechanical ventilation -Suspected COPD exacerbation related to pneumonia -Prolonged QTc (503 ms) fluoroquinolones avoided -Penicillin allergy (unknown reaction, since 2021) -Leukocytosis (WBC 22.5 K/L) -Anemia (Hgb 9.7 g/dL) -Hyponatremia (Na 133 mmol/L) -History of CHF, GERD, anxiety, hypertension, hyperlipidemia; chronic hypotension noted Assessment This is a 59 y.o. female with a past medical history of CHF, anxiety, COPD, GERD, hypertension, hyperlipidemia, and chronic hypotension who presents with shortness of breath and hypoxemia (desaturation to 70% on 6 L NC). ED CXR showed patchy right greater than left opacities favoring infection; admitted for pneumonia. Transferred to ICU for septic shock in the setting of pneumonia. Viral testing (influenza A/B, COVID-19) negative. UA without growth. Blood cultures no growth to date (04/05). ABG with hypercapnia (pH 7.35, pCO2 83.1). BNP 38.81. EKG with QTc 503 ms. Preliminary sputum culture with rare filamentous fungi (awaiting further results). The clinical picture is consistent with pneumonia with concurrent COPD exacerbation and hypercapnic respiratory failure requiring mechanical ventilation. Plan: -Antimicrobials: -Continue azithromycin and metronidazole (Flagyl) as per current regimen. -Avoid fluoroquinolones due to prolonged QTc. -Given penicillin allergy and QT prolongation, if additional Gram-negative coverage is needed, consider aztreonam or cefepime. -Follow up sputum culture results; adjust therapy per susceptibilities. -Follow up blood cultures; currently no growth to date (04/05). -Respiratory: -Mechanical ventilation management per sales representative graphic art team; current settings documented below. -Wean as tolerated to high-flow nasal cannula when appropriate. -COPD therapies per pulmonology: bronchodilators, systemic steroids, mucolytics. -Monitoring: -Monitor temperature curve; if persistent fevers, reassess antimicrobial coverage. -Repeat chest X-ray daily. -Maintain MAP > 65 mmHg; titrate vasoactive support as needed. -Monitor QTc; continue to avoid QT-prolonging agents where feasible. 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 -Diagnostics: -Recommend sputum culture (pending/follow-up). -Continue to monitor labs (CBC, BMP, lactate) and ABGs as clinically indicated. Isolation Precautions: Not provided in transcript. \ History: The patient's chart and medications were reviewed in detail and the patient was seen and examined. History obtained from: Not specified in transcript. Pao is a 59 y.o. female with a past medical history of CHF, anxiety, COPD, GERD, hypertension, hyperlipidemia, and chronic hypotension who presents with shortness of breath. She was desaturating to 70% with increased work of breathing on 6 L nasal cannula started by EMS. ED labs notable for leukocytosis (22.5), anemia (Hgb 9.7). Creatinine 0.64, BUN 10, sodium 133; liver enzymes unr emarkable. Tachycardic to 104; temperature 97.6F initially; maximum temperature 100.9F yesterday. Chest X-ray showed patchy right greater than left opacities favoring infection. She was admitted for pneumonia and transferred to ICU for septic shock in the setting of pneumonia. Influenza A/B and COVID-19 negative. UA without growth. ABG pH 7.35, pCO2 83.1. Lactate 1.2. BNP 38.81. EKG with QTc 503 ms. Preliminary sputum culture with rare filamentous fungi; sensitivities pending. Blood cultures with no growth to date (collected 04/05). Patient is intubated on FiO2 35%, PEEP 5. Clear wheezing noted on exam. Suspected COPD exacerbation related to pneumonia. Current antibiotics: azithromycin and metronidazole (Flagyl). Review of Systems: A complete 10-system review was performed and is negative except as noted in the HPI or here. -Constitutional: Reports fever up to 100.9F yesterday; otherwise not specified. -HEENT: Not discussed. -Respiratory: Shortness of breath; wheezing. -Cardiovascular: Not discussed. -Gastrointestinal: Not discussed. -Genitourinary: Not discussed. -Musculoskeletal: Not discussed. -Skin: Not discussed. -Neurological: Not discussed. -Psychiatric: History of anxiety; current ROS otherwise not discussed. Past Medical History: -Congestive heart failure (CHF) -Anxiety -Chronic obstructive pulmonary disease (COPD) -Gastroesophageal reflux disease (GERD) -Hypertension -Hyperlipidemia -Chronic hypotension Past Surgical History: -Tonsillectomy Home Medications: Not provided in transcript. Allergies: -Penicillin unknown reaction (since 2021) Family History: No family history noted. Social History: -Tobacco: No smoking -Alcohol: No alcohol use -Illicit drugs: No IV drug use Objective: Vital Signs on Arrival: -Temperature: 97.6 F -Blood Pressure: Not fully specified on arrival -Pulse: 104 bpm -Respiratory Rate: Not provided in transcript -SpO2: Desaturated to 70% on 6 L/min nasal cannula (pre-hospital) Most Recent Vital Signs: -Temperature: Tmax 100.9 F (yesterday); otherwise 97.6 F noted -Blood Pressure: 94/54 mmHg -Pulse: Not provided in transcript -Respiratory Rate: Not provided in transcript -SpO2: Not provided in transcript -Oxygen/Ventilation: Intubated; FiO2 35%, PEEP 5 Admission Weight/BMI: Not provided in transcript. Physical Exam: General: NAD Neck: Supple. No masses. HEENT: PERRL. Normal lids and conjunctiva. Moist mucous membranes. Oropharynx without lesions, exudates or excessive erythema. Normal appearance of the external aspects of the nose and ears. Heart: Regular rhythm, normal rate. No murmur. No lower extremity edema. Lungs: Normal respiratory effort. Clear to auscultation bilaterally. Wheezes present. Patient is mechanically ventilated. Abdomen: Soft. Non-tender. Non-distended. No masses or abdominal hernia. Msk: No digital cyanosis. Normal strength and tone in all 4 limbs Skin: Warm and dry, no rashes. Neuro: Alert. No facial droop or slurred speech. Extra-ocular movements intact. Sensation intact to soft touch in all 4 limbs. Psych: Appropriate mood. Full affect. Oriented to person, place, time, and situation. Lines: Active Devices/Lines: -Endotracheal tube (mechanical ventilation) Diagnostic Studies: Available diagnostic studies were reviewed personally. Significant relevant results and findings are outlined below or addressed in the Assessment and Plan above. -Laboratory: -WBC 22.5 K/L; Platelets 236 K/L; Hgb 9.7 g/dL -Creatinine 0.64 mg/dL; BUN 10 mg/dL; Sodium 133 mmol/L -Lactic acid 1.2 mmol/L -BNP 38.81 -Viral testing: Influenza A negative; Influenza B negative; COVID-19 negative -UA: No growth -Blood cultures: No growth to date (collected 04/05) -Sputum culture: Preliminary rare filamentous fungi; further results pending -ABG: pH 7.35, pCO2 83.1 -EKG: QTc 503 ms Pertinent Imaging: -Chest X-ray: Patchy right greater than left opacities favoring infection. Plan discussed with: Patient GORDON COLEY MD Apr 04, 2025 23:56
--- NOTE | 2025-04-04 23:56 | DVHPN2 ---
Consult Progress Note Date Seen: Apr 04, 2025 Objective vital signs Vital Sign Date Time Temp Pulse Resp B/P (MAP) Pulse Ox O2 Delivery O2 Flow Rate FiO2 04/04/25 21:57 94 20 125/80 (95) 98 35 04/04/25 19:30 Mechanical Ventilator+ 0 04/04/25 19:00 97.5 97.5 Total Intake and Output 04/03/25 04/03/25 04/04/25 15:00 23:00 07:00 Intake Total 81.00 ml 460 ml 510 ml Output Total 500 ml 140 ml 85 ml Balance -419.00 ml 320 ml 425 ml medications Current Medications Medications Dose Ordered Sig/Guy Route Start Time Stop Time Status Last Admin Dose Admin Metronidazole 100 ml @ 100 mls/hr Q8HR IV 04/03/25 06:00 04/04/25 22:04 Azithromycin 250 ml @ 125 mls/hr DAILY IV 04/04/25 10:00 04/04/25 10:41 Albuterol 2.5 mg Q4HPRN PRN NEB 04/02/25 23:15 04/04/25 14:23 Ipratropium Sims 0.5 mg Q4HPRN PRN NEB 04/02/25 23:15 04/04/25 14:23 Methylprednisolone Sodium Succinate 40 mg BID IV 04/03/25 10:00 04/04/25 22:04 Famotidine 20 mg Q12HR IV 04/03/25 10:00 04/04/25 22:04 Sodium Chloride 1,000 ml @ 60 mls/hr [id number] IV 04/02/25 23:15 04/03/25 16:23 Acetaminophen/ Hydrocodone Bitart 1 tab Q4HP PRN PO 04/02/25 23:15 Ondansetron HCl 4 mg Q4HP PRN IV 04/02/25 23:15 Docusate Sodium 100 mg BIDPRN PRN PO 04/02/25 23:15 Acetaminophen 650 mg Q6HP PRN PO 04/02/25 23:15 Nitroglycerin 0.4 mg Q5MINP PRN SL 04/03/25 00:00 Morphine Sulfate 2 mg Q30M PRN IV 04/03/25 00:00 Midodrine 10 mg TID@0600,1200,1800 PO 04/03/25 12:00 Norepinephrine Bitartrate 250 ml @ 3.75 mls/hr Q24H IV 04/03/25 10:00 UNV Midazolam HCl 100 ml @ 1 mls/hr Q24H IV 04/03/25 10:00 04/04/25 19:12 Norepinephrine Bitartrate 250 ml @ 3.75 mls/hr Q24H IV 04/03/25 10:00 04/04/25 01:46 Acetaminophen 650 mg Q6HP PRN VA 04/03/25 20:15 laboratory and microbiology Laboratory Tests 04/04/25 08:22 Test 04/04/25 08:22 Range/Units Serum Glucose 120 H 74-106 mg/dL Problem List/Assessment/Plan Problem List/Assessment/Plan Today's Encounter Date: 04/06/2025 Patient Name: Pao Provider: Gordon Coley ASSESSMENT AND PLAN: ID Problem List: -Community-acquired pneumonia (CXR: patchy right > left opacities) -Septic shock (ICU transfer in the setting of pneumonia; BP 94/54 noted) -Acute on chronic respiratory failure with hypercapnia (pH 7.35, pCO2 83.1) requiring mechanical ventilation -Suspected COPD exacerbation related to pneumonia -Prolonged QTc (503 ms) fluoroquinolones avoided -Penicillin allergy (unknown reaction, since 2021) -Leukocytosis (WBC 22.5 K/L) -Anemia (Hgb 9.7 g/dL) -Hyponatremia (Na 133 mmol/L) -History of CHF, GERD, anxiety, hypertension, hyperlipidemia; chronic hypotension noted Assessment This is a 59 y.o. female with a past medical history of CHF, anxiety, COPD, GERD, hypertension, hyperlipidemia, and chronic hypotension who presents with shortness of breath and hypoxemia (desaturation to 70% on 6 L NC). ED CXR showed patchy right greater than left opacities favoring infection; admitted for pneumonia. Transferred to ICU for septic shock in the setting of pneumonia. Viral testing (influenza A/B, COVID-19) negative. UA without growth. Blood cultures no growth to date (04/05). ABG with hypercapnia (pH 7.35, pCO2 83.1). BNP 38.81. EKG with QTc 503 ms. Preliminary sputum culture with rare filamentous fungi (awaiting further results). The clinical picture is consistent with pneumonia with concurrent COPD exacerbation and hypercapnic respiratory failure requiring mechanical ventilation. Plan: -Antimicrobials: -Continue azithromycin and metronidazole (Flagyl) as per current regimen. -Avoid fluoroquinolones due to prolonged QTc. -Given penicillin allergy and QT prolongation, if additional Gram-negative coverage is needed, consider aztreonam or cefepime. -Follow up sputum culture results; adjust therapy per susceptibilities. -Follow up blood cultures; currently no growth to date (04/05). -Respiratory: -Mechanical ventilation management per semiconductor processor team; current settings documented below. -Wean as tolerated to high-flow nasal cannula when appropriate. -COPD therapies per pulmonology: bronchodilators, systemic steroids, mucolytics. -Monitoring: -Monitor temperature curve; if persistent fevers, reassess antimicrobial coverage. -Repeat chest X-ray daily. -Maintain MAP > 65 mmHg; titrate vasoactive support as needed. -Monitor QTc; continue to avoid QT-prolonging agents where feasible. 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 -Diagnostics: -Recommend sputum culture (pending/follow-up). -Continue to monitor labs (CBC, BMP, lactate) and ABGs as clinically indicated. Authorized and Performed by: Gordon oCley Total critical care time: Approximately 76 minutes Due to a high probability of clinically significant, life threatening deterioration, the patient required my highest level of preparedness to intervene emergently and I personally spent this critical care time directly and personally managing the patient. This critical care time included obtaining a history; examining the patient; pulse oximetry; ordering and review of studies; arranging urgent treatment with development of a management plan; evaluation of patient's response to treatment; frequent reassessment; and, discussions with other providers. This critical care time was performed to assess and manage the high probability of imminent, life-threatening deterioration that could result in multi-organ failure. It was exclusive of separately billable procedures and treating other patients and teaching time. Isolation Precautions: Not provided in transcript. \ History: The patient's chart and medications were reviewed in detail and the patient was seen and examined. History obtained from: Not specified in transcript. Pao is a 59 y.o. female with a past medical history of CHF, anxiety, COPD, GERD, hypertension, hyperlipidemia, and chronic hypotension who presents with shortness of breath. She was desaturating to 70% with increased work of breathing on 6 L nasal cannula started by EMS. ED labs notable for leukocytosis (22.5), anemia (Hgb 9.7). Creatinine 0.64, BUN 10, sodium 133; liver enzymes unremarkable. Tachycardic to 104; temperature 97.6F initially; maximum temperature 100.9F yesterday. Chest X-ray showed patchy right greater than left opacities favoring infection. She was admitted for pneumonia and transferred to ICU for septic shock in the setting of pneumonia. Influenza A/B and COVID-19 negative. UA without growth. ABG pH 7.35, pCO2 83.1. Lactate 1.2. BNP 38.81. EKG with QTc 503 ms. Preliminary sputum culture with rare filamentous fungi; sensitivities pending. Blood cultures with no growth to date (collected 04/05). Patient is intubated on FiO2 35%, PEEP 5. Clear wheezing noted on exam. Suspected COPD exacerbation related to pneumonia. Current antibiotics: azithromycin and metronidazole (Flagyl). Review of Systems: A complete 10-system review was performed and is negative except as noted in the HPI or here. -Constitutional: Reports fever up to 100.9F yesterday; otherwise not specified. -HEENT: Not discussed. -Respiratory: Shortness of breath; wheezing. -Cardiovascular: Not discussed. -Gastrointestinal: Not discussed. -Genitourinary: Not discussed. -Musculoskeletal: Not discussed. -Skin: Not discussed. -Neurological: Not discussed. -Psychiatric: History of anxiety; current ROS otherwise not discussed. Past Medical History: -Congestive heart failure (CHF) -Anxiety -Chronic obstructive pulmonary disease (COPD) -Gastroesophageal reflux disease (GERD) -Hypertension -Hyperlipidemia -Chronic hypotension Past Surgical History: -Tonsillectomy Home Medications: Not provided in transcript. Allergies: -Penicillin unknown reaction (since 2021) Family History: No family history noted. Social History: -Tobacco: No smoking -Alcohol: No alcohol use -Illicit drugs: No IV drug use Objective: Vital Signs on Arrival: -Temperature: 97.6 F -Blood Pressure: Not fully specified on arrival -Pulse: 104 bpm -Respiratory Rate: Not provided in transcript -SpO2: Desaturated to 70% on 6 L/min nasal cannula (pre-hospital) Most Recent Vital Signs: -Temperature: Tmax 100.9 F (yesterday); otherwise 97.6 F noted -Blood Pressure: 94/54 mmHg -Pulse: Not provided in transcript -Respiratory Rate: Not provided in transcript -SpO2: Not provided in transcript -Oxygen/Ventilation: Intubated; FiO2 35%, PEEP 5 Admission Weight/BMI: Not provided in transcript. Physical Exam: General: NAD Neck: Supple. No masses. HEENT: PERRL. Normal lids and conjunctiva. Moist mucous membranes. Oropharynx without lesions, exudates or excessive erythema. Normal appearance of the external aspects of the nose and ears. Heart: Regular rhythm, normal rate. No murmur. No lower extremity edema. Lungs: Normal respiratory effort. Clear to auscultation bilaterally. Wheezes present. Patient is mechanically ventilated. Abdomen: Soft. Non-tender. Non-distended. No masses or abdominal hernia. Msk: No digital cyanosis. Normal strength and tone in all 4 limbs Skin: Warm and dry, no rashes. Neuro: Alert. No facial droop or slurred speech. Extra-ocular movements intact. Sensation intact to soft touch in all 4 limbs. Psych: Appropriate mood. Full affect. Oriented to person, place, time, and situation. Lines: Active Devices/Lines: -Endotracheal tube (mechanical ventilation) Diagnostic Studies: Available diagnostic studies were reviewed personally. Significant relevant results and findings are outlined below or addressed in the Assessment and Plan above. -Laboratory: -WBC 22.5 K/L; Platelets 236 K/L; Hgb 9.7 g/dL -Creatinine 0.64 mg/dL; BUN 10 mg/dL; Sodium 133 mmol/L -Lactic acid 1.2 mmol/L -BNP 38.81 -Viral testing: Influenza A negative; Influenza B negative; COVID-19 negative -UA: No growth -Blood cultures: No growth to date (collected 04/05) -Sputum culture: Preliminary rare filamentous fungi; further results pending -ABG: pH 7.35, pCO2 83.1 -EKG: QTc 503 ms Pertinent Imaging: -Chest X-ray: Patchy right greater than left opacities favoring infection. Electronically signed by: Gordon Coley MD, 04/06/2025 Plan discussed with: Patient GORDON COLEY MD Apr 04, 2025 23:56
[2025-04-05] VITALS (72 sets, daily range): BP systolic 78–128; BP diastolic 47–79; PULSE 56–126; RESP 18–23; TEMP 96.8–101.1; O2SAT 90–100
[2025-04-05 06:35] LABS: Base Excess 6.1 mmol/L (-2.0-3.0)
--- NOTE | 2025-04-05 11:59 | DVH ---
EXAM: CT HEAD WITHOUT CONTRAST INDICATION: Unequal pupils r/o stroke. TECHNIQUE: CT of the head without intravenous contrast. Coronal and sagittal reformatted images are s ubmitted. Radiation Dose : 1. Head: CT Dose: CTDI volume is 52.1 mGy. Dose-length product is 1026.99 mGy*cm The dose indicators for CT are the volume Computed Tomography (CT) Dose Index (CTDIvol) and the Dose Length Product (DLP), and are measured in units of mGy and mGy-cm, respectively. These indicators are not patient dose, but values generated from the CT scanner acquisition factors. The report includes radiation exposure data for exposures received during this examination. All CT scans at this medical facility are performed using dose modulation techniques as appropriate to a performed exam including the following: Automated exposure control was utilized; adjustment of the MA and/or KV according to patient size; and use of iterative reconstruction technique. COMPARISON: CT HEAD WITHOUT CONTRAST on DOS: 02/28/23 FINDINGS: There is no evidence of acute intracranial hemorrhage, extra-axial collection, mass effect, midline s hift, herniation or hydrocephalus. There are periventricular and subcortical hypodensities, nonspecific, but likely reflecting sequelae of chronic microvascular ischemic changes. The ventricles, sulci and cisterns are age appropriate. The cespedes-white differentiation is intact. The visualized paranasal sinuses and mastoid air cells are clear. No depressed calvarial fracture. The surrounding soft tissues are unremarkable. IMPRESSION: 1. No evidence of acute intracranial abnormality. 2. Mild subcortical and periventricular low attenuation, nonspecific but most commonly associated wit h sequelae of chronic microvascular ischemic changes although other etiologies are not excluded.
[2025-04-05] MEDS ORDERED: DEXTROSE (50%) 50ML SYRG IV SCH (14:30)
[2025-04-05] MEDS ORDERED: TPN PER PHARMACY 0 ML IV SCH (14:30)
[2025-04-05 15:35] LABS: INR 0.94 (0.9-1.15); Prothrombin Time 10.0 sec (9.3-11.8)
[2025-04-05 15:42] LABS: Magnesium 1.8 mg/dL (1.6-2.6); Triglycerides 100.0 mg/dL (< 150)
--- NOTE | 2025-04-05 17:04 | DVH ---
CHEST RADIOGRAPH Indication: CENTRAL LINE PLACEMENT/ OGT PLACEMENT Technique: Single frontal view of the chest was obtained Comparison: XY CHEST XRAY 1 VIEW on DOS: 04/02/25, CXRP on DOS: 02/07/22, CHEST PORTABLE on DOS: FINDINGS: Lines and Tubes: Endotracheal tube 5.8 cm above the vani. Right internal jugular catheter in place with the tip at the cavoatrial junction. Enteric tube below the left diaphragm in the stomach. Lungs: IMPROVING airspace disease right lower lobe. Pleura: No effusion. No pneumothorax. Cardiomediastinal contours: Unremarkable Bones: No acute osseous abnormality. IMPRESSION: 1. Endotracheal tube 5.8 cm above the vani 2. Right internal jugular catheter in place at the cavoatrial junction. 3. Enteric tube below the left diaphragm less likely in the stomach. 4. IMPROVING airspace disease right lower lobe.
--- NOTE | 2025-04-05 17:12 | DVHNC2 ---
Central Line Recorder of insertion practice: Loom Setter Fourdrinier Occupation of lotus notes developer: Name of lotus notes developer (Dr welch) Indication: Hypotension, Volume resuscitation Room prepared for procedure: Yes Loom Setter Fourdrinier performed hand hygien: Yes Maximal sterile barrier precau: Mask/Eye shield, Sterile gown, Cap, Sterlie gloves, Large sterlie drape Skin Preparation: Chlorhexidine gluconate, Alcohol Skin preparation completely dr: Yes Insertion site: Right, Internal jugular Central line catheter type: Esm-sjlrysvb-cah dialysis Number of lumens: 3 Central line exchanged over a: No Antiseptic ointment applied to: No Post Assessment: Chest X-Ray, Proper placement, No Pneumothorax Informed consent obtained: Yes Notes Emergent procedure. Medically necessary for administration of vaso-active medications. DESCRIPTION OF PROCEDURE IN DETAIL: The patient was lying in the Trendelenburg position with head turned 30 degrees away from the insertion site. The skin was thoroughly sponged with chlorhexidine and allowed to dry. All persons involved were shielded with hair nets, face masks and sterile gowns. With sterile-gloved hands the right neck area was draped with the large disposable sterile field provided in the pre-manufactured kit. The skin and subcutaneous tissues superficial to the RIGHT internal jugular vein were anesthetized with 2 mL of 1% lidocaine. The RIGHT internal jugular vein was identified on ultrasound from the angle of t he mandible down into the supraclavicular fossa using the linear ultrasound probe in the transverse orientation. The carotid artery was identified and avoided utilizing color-flow. The internal jugular vein was then placed in the center of the ultrasound field and compressed for patency. A movement artifact was identified as the needle was advanced through the skin and advanced toward the vessel. A real time hyperechoic signal revealed visualization of vascular needle entry into the lumen as blood was noted to flashback in the syringe. The needle was then held in place while the guide wire was advanced. The needle was then removed. Direct visualization of guide wire location within the vein was noted on ultrasound indicating proper placement and was document in the electronic medical record chart. A skin dilator was advanced over the guidewire and removed, and the triple-lumen catheter was then advanced over the guide wire into proper position. The guide wire was removed and discarded. The ports were aspirated which showed good blood return and then carefully flushed with normal saline. The catheter was stabilized and sutured to the skin at 2 anchor points. A sterile bio-patch and dressing was placed over the catheter, including the insertion site. The patient tolerated the procedure well. A chest x-ray was ordered for position confirmation. Post-procedure chest x-ray appropriate posit ion. No pneumothorax. Date of Service: Apr 05, 2025 Billing Provider: LIDIA KLEIN MD Common Visit Codes: PROCEDURE ONLY Procedure Codes: 61879-[id number] NON-TUNNEL CV CATH, 89210-HV GUIDE VASCULAR ACCESS SHELL WELCH RESIDENT Apr 05, 2025 17:12 LIDIA KLEIN MD Apr 08, 2025 13:27
--- NOTE | 2025-04-05 17:53 | DVHPN2 ---
Subjective Patient has been intubated and sedated. Patient is currently on% following minimal commands. Patient's daughter was updated at bedside. Changes from previous H/P or p: No Changes Eyes: No Pain, No Vision change, No Conjunctivae inflammation, No Eyelid inflammation, No Other, No Redness ENT: No Ear pain, No Ear discharge, No Nose pain, No Nose discharge, No Nose congestion, No Mouth pain, No Mouth swelling, No Throat pain, No Throat swelling, No Other Cardiovascular: No Chest Pain, No Palpitations, No Orthopnea, No Paroxysmal Noc. Dyspnea, No Edema, No Lt Headedness, No Other Respiratory: No Cough, No Dry; Shortness of breath; No SOB with excertion, No Wheezing, No Hemoptysis, No Pleuritic Pain, No Sputum; Other (SOB at rest) Gastrointestinal: No Nausea, No Vomiting, No Abdominal Pain, No Diarrhea, No Constipation, No Melena, No Hematochezia, No Other Genitourinary: No Dysuria, No Frequency, No Incontinence, No Hematuria, No Retention, No Other Musculoskeletal: No other, No neck pain, No shoulder pain, No arm pain, No back pain, No hand pain, No leg pain, No foot pain Skin: No Rash, No Lesions, No Jaundice, No Bruising, No Other Objective Vitals Vital Signs Date Time Temp Pulse Resp B/P (MAP) Pulse Ox O2 Delivery O2 Flow Rate FiO2 04/05/25 16:07 93 20 95/52 (66) 100 35 04/05/25 16:00 Mechanical Ventilator+ 04/05/25 07:50 97.3 97.3 04/04/25 19:30 0 Intake/Output Intake and Output 04/05/25 07:00 Intake Total 1530 ml Output Total 1600 ml Balance -70 ml IV Total 1530 ml Output Urine Total 1600 ml Exam HEENT pupils are reactive Neck is supple CV is S1-S2 regular rate rhythm Respiratory bilateral diminished breath sound at bases GI positive bowel sounds Extremities is no pedal edema PHOTOGRAPHER ASSISTANT intubated and sedated Medications Current Medications Medications Dose Ordered Sig/Guy Route Start Time Stop Time Status Last Admin Dose Admin Metronidazole 100 ml @ 100 mls/hr Q8HR IV 04/03/25 06:00 04/05/25 06:00 100 MLS/HR Azithromycin 250 ml @ 125 mls/hr DAILY IV 04/04/25 10:00 04/05/25 10:46 125 MLS/HR Albuterol 2.5 mg Q4HPRN PRN NEB 04/02/25 23:15 04/05/25 10:32 2.5 MG Ipratropium [place] 0.5 mg Q4HPRN PRN NEB 04/02/25 23:15 04/05/25 10:32 0.5 MG Methylprednisolone Sodium Succinate 40 mg BID IV 04/03/25 10:00 04/05/25 10:46 40 MG Famotidine 20 mg Q12HR IV 04/03/25 10:00 04/05/25 10:46 20 MG Sodium Chloride 1,000 ml @ 60 mls/hr [id number] IV 04/02/25 23:15 04/05/25 01:02 60 MLS/HR Acetaminophen/ Hydrocodone Bitart 1 tab Q4HP PRN PO 04/02/25 23:15 Ondansetron HCl 4 mg Q4HP PRN IV 04/02/25 23:15 Docusate Sodium 100 mg BIDPRN PRN PO 04/02/25 23:15 Acetaminophen 650 mg Q6HP PRN PO 04/02/25 23:15 Nitroglycerin 0.4 mg Q5MINP PRN SL 04/03/25 00:00 Morphine Sulfate 2 mg Q30M PRN IV 04/03/25 00:00 Midodrine 10 mg TID@0600,1200,1800 PO 04/03/25 12:00 04/05/25 12:32 10 MG Norepinephrine Bitartrate 250 ml @ 3.75 mls/hr Q24H IV 04/03/25 10:00 UNV Midazolam HCl 100 ml @ 1 mls/hr Q24H IV 04/03/25 10:00 04/05/25 04:15 10 MLS/HR Norepinephrine Bitartrate 250 ml @ 3.75 mls/hr Q24H IV 04/03/25 10:00 04/04/25 01:46 11.25 MLS/HR Acetaminophen 650 mg Q6HP PRN AR 04/03/25 20:15 Amino Acids 0 ml @ 0 mls/hr PER PHARMACY IV 04/05/25 14:30 Diagnostic Test (Pha) 1 strip Q6HR 04/05/25 18:00 Insulin Human Regular FOLLOW SLIDING SCALE Q6HR SC 10/26/25 18:00 Dextrose 50 ml UD IV 04/05/25 14:30 Laboratory Results Laboratory Tests 04/04/25 08:22 Chemistry Test 04/05/25 14:59 Magnesium Level 1.8 mg/dL (1.6-2.6) Phosphorus Level 2.8 mg/dL (2.4-5.1) Coagulation Test 04/05/25 14:59 Prothrombin Time 10.0 sec (9.3-11.8) Prothrombin Time INR 0.94 (0.9-1.15) Lipid panel Test 04/05/25 14:59 Triglycerides Level 100 mg/dL (< 150) Urinalysis Test 04/02/25 20:38 Urine Color Yellow (Yellow) Urine Clarity Clear (Clear) Urine pH 5.5 (5.0-9.0) Urine Specific [place] 1.015 (1.001-1.035) Urine Protein Trace (Negative) H Urine Ketones Negative (Negative) Urine Blood Negative /uL (Negative) Urine Nitrite Negative (Negative) Urine Bilirubin Negative (Negative) Urine Urobilinogen Normal mg/dL (Negative) Urine Leukocyte Esterase Negative /uL (Negative) Urine RBC 1 /hpf (0 - 4) Urine Microscopic WBC 1 /HPF (0-5) Urine Squamous Epithelial Cells None seen /hpf (<5) Urine Bacteria None seen /hpf (None Seen) Urine Mucus Few (None Seen) Urine Glucose Normal mg/dL (Normal) Blood Gas Results Test 04/05/25 06:28 Arterial Blood pH 7.394 (7.350-7.450) FiO2 % 40.0 Microbiology Microbiology Date/Time Source Procedure Growth Status 04/03/25 10:00 Sputum Endotracheal Wash Gram Stain - Final Resulted 04/03/25 10:00 Sputum Endotracheal Wash Respiratory Culture - Preliminary Resulted 04/02/25 20:04 Blood Blood Culture - Preliminary NO GROWTH AFTER 48 HOURS OF INCUBATION. Resulted Assessment/Plan Assessment/Plan 59-year-old female with known history of chronic respiratory failure on home O2, COPD, congestive heart failure, hypertension who initially in the hospital getting shortness of breath and increased work of breathing found to have 1. Acute on chronic hypoxic respiratory failure secondary to acute COPD exacerbation/pneumonia 2. Bilateral consolidation high suspicious for pneumonia 3. Acute COPD exacerbation 4. Leukocytosis 5. Hypertension 6. Congestive heart failure currently compensated 7. Acute metabolic encephalopathy -continue vent support, daily ABG, chest x-ray, IV antibiotics pulmonary constipation and Infectious disease consultation. Plan discussed with: Daughter My Orders Orders - PAOLO MCPHERSON MD Procedure Category Date Status Time Head Without Contrast CT 04/05/25 Resulted 10:58 * Neurology Consult CONS 04/05/25 Transmitted 10:58 Mrsa Screen GUTIERREZ 04/05/25 In Process 08:00 Tpn Per Pharmacy PHA 04/05/25 In Process 14:30 Glucose Blood PHA 04/05/25 In Process (Accu-Chek Comfort 18:00 Insulin R (Human) PHA 04/05/25 In Process (Insulin R) 18:00 Dextrose 50% Syringe PHA 04/05/25 In Process 14:30 Comprehensive LAB 04/06/25 Verified Metabolic Panel 04:00 Magnesium LAB 04/06/25 Verified 04:00 Phosphorus LAB 04/06/25 Verified 04:00 Tpn Per Pharmacy SAMMY 04/05/25 In Process 22:00 Amino Acid Infusion PHA 04/05/25 In Process In D10w (Clinimix 4. 22:00 Change Midline SAMMY 04/05/25 In Process Dressing Q7 Day 15:54 Insert Midline ORDERS 04/05/25 Transmitted 15:54 * Wound Consult CONS 04/05/25 Transmitted 17:02 * Electronics Detail Draftsperson CONS 04/05/25 Transmitted Consult 17:02 Date of Service: Apr 05, 2025 Billing Provider: PAOLO MCPHERSON MD Common Visit Codes: [id number] INP/OBS CARE(HIGH) PAOLO MCPHERSON MD Apr 05, 2025 17:53
[2025-04-05] MEDS: InsuLIN REG 1unit/0.01ml Soln (100units/ml) SC SCH (18:00)
[2025-04-05] MEDS: ACCU-CHEK COMFORT CURVE STRIP VI SCH (18:00)
[2025-04-05] MEDS: FUROSEMIDE 40 MG/4 ML VIAL IV ONE (18:35)
--- NOTE | 2025-04-05 18:43 | DVHINCON2 ---
Date of service: Apr 05, 2025 Referring Physician Dale Reason for Consultation Unequal pupils History of Present Illness Ms. Cedeno is a 59 years old female with a history of hypotension, dyslipidemia, congestive heart failure, COPD, GERD, anxiety, she was brought to the [facility] on 03/30/2025 with a chief complaint of shortness breath. At this time, she is intubated, respond to light painful stimuli, the history is obtained from her nurse and chart review According to ER note, the patient came to the hospital because sudden onset shortness breath, oxygen saturation was 70% on scene, in the ER, the patient was intubated on 04/03/25 because of respiratory failure. In the morning on 04/05/2025, the patient's pupil were equally round, but in the afternoon, the pupil size was noticed to be obese unequal, right: 5 mm, left: 3 mm. During the physical examination around 6:30PM, the pupils size were right: 3 mm, left: 3 mm, sluggish light reflexes Blood culture, 04/02/2025: UDS, 04/02/2025: Negative Plasma alcohol, 04/02/2025: <3 Urinalysis, 04/02/2025: WBC: 1, urine leukocyte esterase: Negative ABG, 04/05/2025: Carbon dioxide retention WBC/HB/PLT/MCV, 04/02/2025: 22.5/9.7/236/95.6, 04/03/2025: 71.9/10.8/245/96.3, 04/04/2025: 26.6/9.8/251/95.5 CMP, 04/04/2025: Unremarkable Chest x-ray, 04/02/2025: Patchy stgey-jjzvjro-gxdr-left bibasilar opacities, favoring infection Chest x-ray 04/05/2025: 1. Endotracheal tube 5.8 cm above the vani 2. Right internal jugular catheter in place at the cavoatrial junction. 3. Enteric tube below the left diaphragm less likely in the stomach. 4. IMPROVING airspace disease right lower lobe. CT head, 04/05/2025:1. No evidence of acute intracranial abnormality. 2. Mild subcortical and periventricular low attenuation, nonspecific but most commonly associated with sequelae of chronic microvascular ischemic changes although other etiologies are not excluded. Past Medical History Hypotension, dyslipidemia, congestive heart failure, COPD, GERD, anxiety Past Surgical History Tonsillectomy Family History: Bipolar disorder G8 SISTER Diabetes mellitus G8 SISTER FH: heart disease G8 MOTHER FH: schizophrenia G8 SISTER Hypertension G8 MOTHER Family History Hypertension, diabetes, heart disease, bipolar disorder Social History Smoker: Quit Greater Than 1 Year Alcohol: Denies ETOH Use Drugs: Denies Drug Use Lives In: Home Allergies: Coded Allergies: Penicillins (Verified Allergy, Unknown, 02/07/22) Home Meds Active Scripts Pantoprazole Sodium Sesquihydr (Protonix) 40 Mg Tab, 40 MG PO DAILY PRN for 7 Days, #7 TAB Prov:LEAH PLASCENCIA MD 01/23/22 Prednisone (Prednisone) 20 Mg Tab, 20 MG PO DAILY for 7 Days, #7 MG Prov:LEAH PLASCENCIA MD 01/23/22 Reported Medications Umeclidinium [place] (Incruse Ellipta) 62.5 Mcg/Inh Inh, 1 PUFF INH DAILYPRN 07/30/20 Beclomethasone Dipropionate (Qvar Redihaler) 80 Mcg/Act Aer, 1 PUFF INH BID 07/30/20 Current Medications Current Medications Medications (Trade) Dose Ordered Sig/Guy Route PRN Reason Start Time Stop Time Status Last Admin Amino Acids 0 ml @ 0 mls/hr PER PHARMACY IV 04/05/25 14:30 Diagnostic Test (Pha) (Accu-Chek Comfort Curve T) 1 strip Q6HR 04/05/25 18:00 Insulin Human Regular (InsuLIN R) FOLLOW SLIDING SCALE Q6HR SC 04/05/25 18:00 Dextrose 50 ml UD IV 04/05/25 14:30 Review of Systems Unobtainable Vital Signs Vital Signs Date Time Temp Pulse Resp B/P (MAP) Pulse Ox O2 Delivery O2 Flow Rate FiO2 04/05/25 18:14 84 04/05/25 18:14 40 04/05/25 16:07 20 95/52 (66) 100 04/05/25 16:00 Mechanical Ventilator+ 04/05/25 11:15 97.3 207.1 04/04/25 19:30 0 Physical Exam The patient is well-nourished and well-developed with no distress. The patient i s intubated HEENT: Normocephalic, neck supple, no carotid bruits Lungs: Clear to auscultation Cardiovascular: Regular rate and region, S1, S2, no murmurs Abdomen: Soft, nontender, normal bowel sounds MENTAL STATUS: Subjective CRANIAL NERVES: Pupils are round and reactive, Rt" 3mm, Lt: 2mm, no associated abnormal vascular dilatation and skin secretion. There are corneal reflexes and doll's eyes phenomenon. No signs of facial weakness. There are gagging or coughing reflexes SENSATION: Responses to pain stimuli. MOTOR: Normal tone in the upper and lower extremity. Normal muscle bulk. No fasciculations. No spontaneous movement. REFLEXES: Deep tendon reflexes are symmetrical. No pathological reflexes. CEREBELLAR/COORDINATION: Deferred GAIT/STATION: deferred. Labs/Diagnostic Data Labs Test 04/05/25 14:59 04/05/25 06:28 04/04/25 08:22 04/03/25 11:30 Range/Units Prothrombin Time 10.0 9.3-11.8 sec Prothrombin Time INR 0.94 0.9-1.15 Phosphorus Level 2.8 2.4-5.1 mg/dL Magnesium Level 1.8 1.6-2.6 mg/dL Triglycerides Level 100 < 150 mg/dL Blood Gas Specimen Type Arterial Blood Gas Sample Site Left radial Blood Gas Patient Temperature 37.0 Arterial Blood Date Drawn [id number] Arterial Blood pH 7.394 7.350-7.450 Arterial Blood Partial Pressure CO2 53.6 H 32.0-45.0 mmHg Arterial Blood Partial Pressure O2 79.6 L 83.0-108.0 mmHg Arterial Blood HCO3 32.0 H 21.0-28.0 mmol/L Arterial Blood Oxygen Saturation 95.0 94.0-98.0 % Arterial Blood Base Excess 6.1 H -2.0-3.0 mmol/L Arterial Blood Oxyhemoglobin 94.1 94.0-98.0 % Arterial Blood Carboxyhemoglobin 0.3 L 0.5-1.5 % Arterial Blood Methemoglobin 0.6 0.0-1.5 % Alex Test Modified Blood Gas Total Hemoglobin 9.60 L 12.0-16.0 g/dL Blood Gas Set Respiration Rate 20.0 Blood Gas Modality Vent - ac Blood Gas Spontaneous Rate 20 FiO2 % 40.0 Blood Gas Tidal Volume 350.0 Blood Gas PEEP or CPAP 5.0 White Blood Count 26.6 H 4.4-10.8 10^3/uL Red Blood Count 3.18 L 4.0-5.20 10^6/uL Hemoglobin 9.8 L 12.2-16.2 g/dL Hematocrit 30.4 L 36.0-46.0 % Mean Corpuscular Volume 95.5 80.0-100.0 fL Mean Corpuscular Hemoglobin 30.7 28.0-32.0 pg Mean Corpuscular Hemoglobin Concent 32.1 32.0-36.0 g/dL Red Cell Distribution Width 14.5 H 11.8-14.3 % Platelet Count 251 140-450 10^3/uL Mean Platelet Volume 8.0 6.9-10.8 fL Neutrophils (%) (Auto) 94.0 H 37.0-80.0 % Lymphocytes (%) (Auto) 3.2 L 10.0-50.0 % Monocytes (%) (Auto) 2.6 0.0-12.0 % Eosinophils (%) (Auto) 0.0 0.0-7.0 % Basophils (%) (Auto) 0.2 0.0-2.0 % Neutrophils # (Auto) 25.1 H 1.6-8.6 10 ^3/uL Lymphocytes # (Auto) 0.8 0.4-5.4 10 ^3/uL Monocytes # (Auto) 0.7 0-1.3 10 ^3/uL Eosinophils # (Auto) 0 0-0.8 10 ^3/uL Basophils # (Auto) 0 0-0.2 10 ^3/uL Nucleated Red Blood Cells 0.0 % Sodium Level 138 # 136-145 mmol/L Potassium Level 3.9 3.5-5.1 mmol/L Chloride Level 98 # 98-107 mmol/L Carbon Dioxide Level 31 20-31 mmol/L Anion Gap 9 5-15 Blood Urea Nitrogen 11 9-23 mg/dL Creatinine 0.52 L 0.550-1.02 mg/dL Glomerular Filtration Rate Calc 106 >90 mL/min BUN/Creatinine Ratio 21.2 H 10.0-20.0 Serum Glucose 120 H 74-106 mg/dL Calcium Level 8.2 L 8.7-10.4 mg/dL Total Bilirubin 0.5 0.2-1.0 mg/dL Aspartate Amino Transferase (AST) 34 13-40 U/L Alanine Aminotransferase (ALT) 37 7-40 U/L Alkaline Phosphatase 66 46-116 U/L Total Protein 5.2 L 5.7-8.2 g/dL Albumin 2.9 L 3.2-4.8 g/dL Blood Gas Critical Value Read Back yes Blood Gas Notified Whom simeon perales Blood Gas Notified Time [id number] Blood Gas Notified By richardson awning installer Test 04/03/25 07:18 04/02/25 23:15 04/02/25 20:38 04/02/25 20:13 Range/Units Differential Total Cells Counted 100.0 100 Neutrophils % (Manual) 86 H 37.0-80.0 Band Neutrophils % (Manual) 6 Lymphocytes % (Manual) 4 L 10.0-50.0 Monocytes % (Manual) 4 0-12 Eosinophils % (Manual) 0 0-7 Basophils % (Manual) 0 0.0-2.0 Metamyelocytes % (manual) 0 Myelocytes % (Manual) 0 Promyelocytes % (Manual) 0 Blast Cells % (Manual) 0 Reactive Lymphocytes 0 Platelet Estimate Adequate Troponin I High Sensitivity 11 </=34 ng/L Urine Color Yellow Yellow Urine Clarity Clear Clear Urine pH 5.5 5.0-9.0 Urine Specific [place] 1.015 1.001-1.035 Urine Protein Trace H Negative Urine Ketones Negative Negative Urine Blood Negative Negative /uL Urine Nitrite Negative Negative Urine Bilirubin Negative Negative Urine Urobilinogen Normal Negative mg/dL Urine Leukocyte Esterase Negative Negative /uL Urine RBC 1 0 - 4 /hpf Urine Microscopic WBC 1 0-5 /HPF Urine Squamous Epithelial Cells None seen <5 /hpf Urine Bacteria None seen None Seen /hpf Urine Mucus Few None Seen Urine Glucose Normal Normal mg/dL Urine Opiates Screen Neg NEGATIVE Urine Fentanyl Screen Neg NEGATIVE Urine Barbiturates Screen Neg NEGATIVE Urine Phencyclidine Screen Neg NEGATIVE Urine Amphetamines Screen Neg NEGATIVE Urine Benzodiazepines Screen Neg NEGATIVE Urine Cocaine Screen Neg NEGATIVE Urine Cannabinoids Screen Neg NEGATIVE Influenza Type A Antigen Negative Negative Influenza Type B Antigen Negative Negative SARS-CoV-2 Antigen (Rapid) Negative NEGATIVE Test 04/02/25 20:05 04/02/25 20:04 04/02/25 20:00 Range/Units Capillary Blood pH 7.355 7.350-7.450 Capillary Blood PCO2 74.0 H 32.0-45.0 mmHg Capillary Blood PO2 83.1 83.0-108.0 mmHg Capillary Blood HCO3 40.4 H 21.0-28.0 mmol/L Capillary Blood Base Excess 12.2 H -2.0-3.0 mmol/L Capillary Blood Oxygen Saturation 95.6 94.0-98.0 % Capillary Blood Oxyhemoglobin 94.6 94.0-98.0 % Capillary Blood Carboxyhemoglobin 0.5 0.5-1.5 % Capillary Blood Methemoglobin 0.5 0.0-1.5 % Capillary Blood Hemoglobin 11.3 L 12.0-16.0 g/dL B-Type Natriuretic Peptide 38.81 0-100 pg/mL Lipase 19 12-53 U/L Plasma/Serum Blood Alcohol < 3.0 <10 mg/dL Lactic Acid Level 1.2 0.4-2.0 mmol/L Microbiology Date/Time Source Procedure Growth Status 04/03/25 10:00 Sputum Endotracheal Wash Gram Stain - Final Resulted 04/03/25 10:00 Sputum Endotracheal Wash Respiratory Culture - Preliminary Resulted 04/02/25 20:04 Blood Blood Culture - Preliminary NO GROWTH AFTER 48 HOURS OF INCUBATION. Resulted Assessment Altered mental status Hypoxic encephalopathy Metabolic encephalopathy Toxic encephalopathy Acute on chronic respiratory failure Pneumoniae Leukocytosis/sepsis Anisocoria Etiology unclear Cachexia Plan/Recommendation Monitoring Supportive treatment Follow-up lab Blood culture MRI head MRA neck Chest CT Stabilize vitals Respiratory support/vent management IV antibiotics Oxygen Midodrine More recommendation per clinical course Prognosis: Guarded This medical document was created using an electronic medical record system with Danger dictation system. Although this document has been carefully reviewed, there may still be some phonetic and typographical errors. These areas are purely typographical due to imperfections of the software programs, and do not reflect any compromise in the patient's medical care. Plan discussed with: Other RAMAN LAWTON MD Apr 05, 2025 18:43
[2025-04-05] MEDS: ACETAMINOPHEN 325 MG TAB PO PRN (21:43)
[2025-04-05] MEDS: AMINO ACID INFUSION IN D10W 1,000 ML IV ONE (21:44)
--- NOTE | 2025-04-05 22:56 | DVHPN2 ---
Subjective DOS: 04/05/2025 Patient seen and examined at bedside. Sedated, intubated on mechanical ventilator. Overnight events reviewed. Changes from previous H/P or p: No Changes Eyes: No Pain, No Vision change, No Conjunctivae inflammation, No Eyelid inflammation, No Other, No Redness ENT: No Ear pain, No Ear discharge, No Nose pain, No Nose discharge, No Nose congestion, No Mouth pain, No Mouth swelling, No Throat pain, No Throat swelling, No Other Cardiovascular: No Chest Pain, No Palpitations, No Orthopnea, No Paroxysmal Noc. Dyspnea, No Edema, No Lt Headedness, No Other Respiratory: No Cough, No Dry; Shortness of breath; No SOB with excertion, No Wheezing, No Hemoptysis, No Pleuritic Pain, No Sputum; Other (SOB at rest) Gastrointestinal: No Nausea, No Vomiting, No Abdominal Pain, No Diarrhea, No Constipation, No Melena, No Hematochezia, No Other Genitourinary: No Dysuria, No Frequency, No Incontinence, No Hematuria, No Retention, No Other Musculoskeletal: No other, No neck pain, No shoulder pain, No arm pain, No back pain, No hand pain, No leg pain, No foot pain Skin: No Rash, No Lesions, No Jaundice, No Bruising, No Other Objective Vitals Vital Signs Date Time Temp Pulse Resp B/P (MAP) Pulse Ox O2 Delivery O2 Flow Rate FiO2 04/05/25 22:12 112 20 96/57 (70) 92 35 04/05/25 18:37 Mechanical Ventilator+ 04/05/25 17:30 96.8 206.2 04/04/25 19:30 0 Intake/Output Intake and Output 04/05/25 07:00 Intake Total 1530 ml Output Total 1600 ml Balance -70 ml IV Total 1530 ml Output Urine Total 1600 ml Exam Gen.: Patient lying in bed in medical ICU. Sedated, intubated on mechanical ventilator. Head: Normocephalic, atraumatic. Eyes: PERRLA. Ears: Normal external anatomy. Throat: Endotracheal tube and orogastric tube in place. Neck: Supple, trachea midline. Chest: Transmitted breath sounds bilaterally. Decreased air entry bilaterally. No wheezing. Bibasilar crackles. Cardiovascular: Positive S1, positive S2. Regular rate and rhythm. Abdomen: Positive bowel sounds in all 4 quadrants. Soft, nontender, nondistended. : Chin in place. Normal external genitalia. Rectal: Deferred. Skin: Warm, dry. Intact. Extremities: 2+ radial pulses bilaterally. No lower extremity edema. Neuro: Sedated. Medications Current Medications Medications Dose Ordered Sig/Guy Route Start Time Stop Time Status Last Admin Dose Admin Metronidazole 100 ml @ 100 mls/hr Q8HR IV 04/03/25 06:00 04/05/25 21:34 100 MLS/HR Azithromycin 250 ml @ 125 mls/hr DAILY IV 04/04/25 10:00 04/05/25 10:46 125 MLS/HR Albuterol 2.5 mg Q4HPRN PRN NEB 04/02/25 23:15 04/05/25 22:31 2.5 MG Ipratropium [place] 0.5 mg Q4HPRN PRN NEB 04/02/25 23:15 04/05/25 22:31 0.5 MG Methylprednisolone Sodium Succinate 40 mg BID IV 04/03/25 10:00 04/05/25 21:35 40 MG Famotidine 20 mg Q12HR IV 04/03/25 10:00 04/05/25 21:35 20 MG Sodium Chloride 1,000 ml @ 60 mls/hr [id number] IV 04/02/25 23:15 04/05/25 01:02 60 MLS/HR Acetaminophen/ Hydrocodone Bitart 1 tab Q4HP PRN PO 04/02/25 23:15 Ondansetron HCl 4 mg Q4HP PRN IV 04/02/25 23:15 Docusate Sodium 100 mg BIDPRN PRN PO 04/02/25 23:15 Acetaminophen 650 mg Q6HP PRN PO 04/02/25 23:15 Nitroglycerin 0.4 mg Q5MINP PRN SL 04/03/25 00:00 Morphine Sulfate 2 mg Q30M PRN IV 04/03/25 00:00 Midodrine 10 mg TID@0600,1200,1800 PO 04/03/25 12:00 04/05/25 18:00 10 MG Norepinephrine Bitartrate 250 ml @ 3.75 mls/hr Q24H IV 04/03/25 10:00 UNV Midazolam HCl 100 ml @ 1 mls/hr Q24H IV 04/03/25 10:00 04/05/25 04:15 10 MLS/HR Norepinephrine Bitartrate 250 ml @ 3.75 mls/hr Q24H IV 04/03/25 10:00 04/05/25 21:44 3.75 MLS/HR Acetaminophen 650 mg Q6HP PRN [place] 04/03/25 20:15 Amino Acids 0 ml @ 0 mls/hr PER PHARMACY IV 04/05/25 14:30 Diagnostic Test (Pha) 1 strip Q6HR 04/05/25 18:00 Insulin Human Regular FOLLOW SLIDING SCALE Q6HR SC 04/05/25 18:00 Dextrose 50 ml UD IV 04/05/25 14:30 Laboratory Results Laboratory Tests 04/04/25 08:22 Chemistry Test 04/05/25 14:59 Magnesium Level 1.8 mg/dL (1.6-2.6) Phosphorus Level 2.8 mg/dL (2.4-5.1) Coagulation Test 04/05/25 14:59 Prothrombin Time 10.0 sec (9.3-11.8) Prothrombin Time INR 0.94 (0.9-1.15) Lipid panel Test 04/05/25 14:59 Triglycerides Level 100 mg/dL (< 150) Urinalysis Test 04/02/25 20:38 Urine Color Yellow (Yellow) Urine Clarity Clear (Clear) Urine pH 5.5 (5.0-9.0) Urine Specific [place] 1.015 (1.001-1.035) Urine Protein Trace (Negative) H Urine Ketones Negative (Negative) Urine Blood Negative /uL (Negative) Urine Nitrite Negative (Negative) Urine Bilirubin Negative (Negative) Urine Urobilinogen Normal mg/dL (Negative) Urine Leukocyte Esterase Negative /uL (Negative) Urine RBC 1 /hpf (0 - 4) Urine Microscopic WBC 1 /HPF (0-5) Urine Squamous Epithelial Cells None seen /hpf (<5) Urine Bacteria None seen /hpf (None Seen) Urine Mucus Few (None Seen) Urine Glucose Normal mg/dL (Normal) Blood Gas Results Test 04/05/25 06:28 Arterial Blood pH 7.394 (7.350-7.450) FiO2 % 40.0 Microbiology Microbiology Date/Time Source Procedure Growth Status 04/03/25 10:00 Sputum Endotracheal Wash Gram Stain - Final Resulted 04/03/25 10:00 Sputum Endotracheal Wash Respiratory Culture - Preliminary Resulted 04/02/25 20:04 Blood Blood Culture - Preliminary NO GROWTH AFTER 72 HOURS OF INCUBATION. Resulted Assessment/Plan Assessment/Plan Impression: Acute hypoxic respiratory failure On mechanical ventilator Acute COPD exacerbation Congestive heart failure Atelectasis Leukocytosis Cachexia, BMI 16.5 Events: Remains on vent support On AC mode; RR 20, VT 350, PEEP 5, FiO2 100% Taper FiO2 as tolerated Continue bronchodilators. Continue antibiotics Follow up cultures Continue steroids Monitor blood pressure Labs and imaging reviewed. Rest of plan as noted below. Plan: s/p intubation on mechanical ventilator. On AC mode; RR 20, VT 350, PEEP 5, FiO2 100% Titrate FIO2 to keep O2 saturation above 90%. VAP bundle. Daily ABG and CXR while intubated Sedate for ventilator synchrony Continue bronchodilators. Continue antibiotics Monitor WBC - 26.6 K Continue steroids Pressors as necessary for hemodynamic support. Titrate to keep MAP greater than 65 mmHg. Follow up Cardiology recs Monitor hemoglobin - 9.8 g/dL Transfuse if less than 7.0 g/dL. Monitor renal function. Monitor electrolytes. Supplement as necessary. Monitor ins and outs. GI/DVT prophylaxis. Prognosis: Poor given patient's multiple co-morbidities. Condition: Critical Rest of plan per hospitalist and other consultants. A total of 35 minutes of critical care time was spent reviewing the patient record, examining the patient, making a diagnostic and therapeutic plan, discussing this plan with the medical personnel, following up on diagnostic studies and following the patient for clinical stability excluding any and all procedures. At least 50% of this time was spent in direct, [id number] contact. Thank you, Dr. Hunter, for allowing me to participate in this patient's care. Further recommendations will depend on the patient's clinical course. Please do not hesitate to contact me if you have any questions or concerns. This medical document was created using an electronic medical record system with [employer] dictation system. Although these documentations are being carefully reviewed, there may still be some phonetic and typographical changes. The errors are purely typographical, due to imperfection on the software program, and do not reflect any compromise in the patient's medical care. Plan discussed with: Other (AMBER Davies) My Orders Orders - LIDIA KLEIN MD Procedure Category Date Status Time Abg W/ Co-Ox RT 04/05/25 Logged 05:30 Visit Coding Pulmonary Billing Provider: LIDIA KLEIN MD Date of Service if different f: Apr 05, 2025 Common Visit Codes: 90204-[id number] INP/OBS CARE(HIGH), [id number] CARE 30-74 MIN LIDIA KLEIN MD Apr 05, 2025 22:56
[2025-04-06] VITALS (110 sets, daily range): BP systolic 78–146; BP diastolic 30–90; PULSE 64–118; RESP 17–24; TEMP 65.7–100.6; O2SAT 89–100
[2025-04-06 04:20] LABS: Alanine Aminotransferase 24 U/L (7-40); Alkaline Phosphatase 55 U/L (46-116); Anion Gap 7 (5-15); BUN/Creatinine Ratio 30.9 (10.0-20.0); Blood Urea Nitrogen 17 mg/dL (9-23); Chloride 100 mmol/L (98-107); Magnesium 1.8 mg/dL (1.6-2.6); Sodium 140 mmol/L (136-145)
[2025-04-06 04:32] LABS: Albumin 2.6 g/dL (3.2-4.8); Bilirubin, Total 0.2 mg/dL (0.2-1.0); Calcium 8.3 mg/dL (8.7-10.4); Carbon Dioxide 33 mmol/L (20-31); Glucose 170 mg/dL (74-106); Potassium 3.1 mmol/L (3.5-5.1); Total Protein 4.8 g/dL (5.7-8.2)
--- NOTE | 2025-04-06 05:16 | DVH ---
CHEST RADIOGRAPH Indication: intubated Technique: Single frontal view of the chest was obtained COMPARISON: CT CHEST WITHOUT CONTRAST on DOS: 04/06/25, XY CHEST PORTABLE on DOS: 04/05/25, XY CHEST XRAY 1 VIEW on DOS: 04/02/25, CXRP on DOS: 02/07/22, CHEST PORTABLE on DOS: 02/07/22 FINDINGS: Lines and Tubes: Slight interval advancement of the endotracheal tube such that the tip now projects approximately 3.9 cm above the level of the vani. Remaining lines and tubes unchanged. Lungs: Stable chronic appearing bilateral interstitial pulmonary markings and mild bibasilar pulmonar y airspace disease. Pleura: No effusion. No pneumothorax. Cardiomediastinal contours: Unremarkable Bones: Unremarkable IMPRESSION: 1. Slight interval advancement of the endotracheal tube such that the tip now projects approximately 3.9 cm above the level of the vani. Remaining lines and tubes unchanged. 2. Stable chronic appearing bilateral interstitial pulmonary markings and mild bibasilar pulmonary ai rspace disease.
[2025-04-06 06:31] LABS: Hematocrit 26.4 % (36.0-46.0); Hemoglobin 8.8 g/dL (12.2-16.2); Mean Corpuscular Hemoglobin 31.3 pg (28.0-32.0); Mean Corpuscular Volume 93.6 fL (80.0-100.0); Nucleated Red Blood Cells % 0.0 %
[2025-04-06 06:39] LABS: Base Excess 6.5 mmol/L (-2.0-3.0)
--- NOTE | 2025-04-06 09:01 | DVHPN2 ---
Progress Note - Dictate Date Seen: Apr 06, 2025 Medical Necessity Reason Pt with a Central, PICC or Fol: Yes The following are medically ne: Central Line, Chin Catheter Subjective Ms. Cedeno is a 59 years old female with a history of hypotension, dyslipidemia, congestive heart failure, COPD, GERD, anxiety, she was brought to the [facility] on 03/30/2025 with a chief complaint of shortness breath. I have seen and examined the patient, I have discussed with her nurse, she is intubated, but possible responsive to vocal stimuli At this time, she is intubated, respond to light painful stimuli, the history is obtained from her nurse and chart review Pupil size: In the morning on 04/05/2025: Equal. Early afternoon: right: 5 mm, left: 3 mm. around 6:30PM, right: 3 mm, left: 2 mm, sluggish light reflexes 04/06/2025: Rt: 3-4, Lt: 3 Blood culture, 04/02/2025: UDS, 04/02/2025: Negative Plasma alcohol, 04/02/2025: <3 Urinalysis, 04/02/2025: WBC: 1, urine leukocyte esterase: Negative ABG, 04/05/2025: Carbon dioxide retention WBC/HB/PLT/MCV, 04/02/2025: 22.5/9.7/236/95.6, 04/03/2025: 71.9/10.8/245/96.3, 04/04/2025: 26.6/9.8/251/95.5, 04/06/2025: 14.5/8.8/278/93.6 CMP, 04/04/2025: Unremarkable Chest x-ray, 04/02/2025: Patchy [id number]-left bibasilar opacities, favoring infection Chest x-ray 04/05/2025: 1. Endotracheal tube 5.8 cm above the vani 2. Right internal jugular catheter in place at the cavoatrial junction. 3. Enteric tube below the left diaphragm less likely in the stomach. 4. IMPROVING airspace disease right lower lobe. CT head, 04/05/2025:1. No evidence of acute intracranial abnormality. 2. Mild subcortical and periventricular low attenuation, nonspecific but most commonly associated with sequelae of chronic microvascular ischemic changes although other etiologies are not excluded. vital signs Vital Sign Date Time Temp Pulse Resp B/P (MAP) Pulse Ox O2 Delivery O2 Flow Rate FiO2 04/06/25 07:56 108 20 121/68 (85) 94 35 04/06/25 07:30 99.0 210.2 04/05/25 20:00 Mechanical Ventilator+ 04/04/25 19:30 0 Total Intake and Output 04/05/25 04/05/25 04/06/25 15:00 23:00 07:00 Intake Total 330 ml 178 ml 326 ml Output Total 100 ml 900 ml Balance 330 ml 78 ml -574 ml medications Current Medications Medications Dose Ordered Sig/Guy Route Start Time Stop Time Status Last Admin Dose Admin Metronidazole 100 ml @ 100 mls/hr Q8HR IV 04/03/25 06:00 04/06/25 06:39 100 MLS/HR Azithromycin 250 ml @ 125 mls/hr DAILY IV 04/04/25 10:00 04/05/25 10:46 125 MLS/HR Albuterol 2.5 mg Q4HPRN PRN NEB 04/02/25 23:15 04/06/25 06:11 2.5 MG Ipratropium [place] 0.5 mg Q4HPRN PRN NEB 04/02/25 23:15 04/06/25 06:11 0.5 MG Methylprednisolone Sodium Succinate 40 mg BID IV 04/03/25 10:00 04/05/25 21:35 40 MG Famotidine 20 mg Q12HR IV 04/03/25 10:00 04/05/25 21:35 20 MG Sodium Chloride 1,000 ml @ 60 mls/hr [id number] IV 04/02/25 23:15 04/05/25 01:02 60 MLS/HR Acetaminophen/ Hydrocodone Bitart 1 tab Q4HP PRN PO 04/02/25 23:15 Ondansetron HCl 4 mg Q4HP PRN IV 04/02/25 23:15 Docusate Sodium 100 mg BIDPRN PRN PO 04/02/25 23:15 Acetaminophen 650 mg Q6HP PRN PO 04/02/25 23:15 Nitroglycerin 0.4 mg Q5MINP PRN SL 04/03/25 00:00 Morphine Sulfate 2 mg Q30M PRN IV 04/03/25 00:00 Midodrine 10 mg TID@0600,1200,1800 PO 04/03/25 12:00 04/06/25 06:39 10 MG Norepinephrine Bitartrate 250 ml @ 3.75 mls/hr Q24H IV 04/03/25 10:00 UNV Midazolam HCl 100 ml @ 1 mls/hr Q24H IV 04/03/25 10:00 04/06/25 03:38 6 MLS/HR Norepinephrine Bitartrate 250 ml @ 3.75 mls/hr Q24H IV 04/03/25 10:00 04/05/25 21:44 3.75 MLS/HR Acetaminophen 650 mg Q6HP PRN [place] 04/03/25 20:15 Amino Acids 0 ml @ 0 mls/hr PER PHARMACY IV 04/05/25 14:30 Diagnostic Test (Pha) 1 strip Q6HR 04/05/25 18:00 04/06/25 06:42 1 STRIP Insulin Human Regular FOLLOW SLIDING SCALE Q6HR SC 04/05/25 18:00 04/06/25 06:44 4 UNITS Dextrose 50 ml UD IV 04/05/25 14:30 Fentanyl Citrate 250 ml @ 2.5 mls/hr Q24H IV 04/06/25 05:30 Potassium Chloride 100 ml @ 50 mls/hr Q2H IV 04/06/25 07:30 04/06/25 11:29 objective The patient is well-nourished and well-developed with no distress. The patient is intubated MENTAL STATUS: Subjective CRANIAL NERVES: Pupils are round and reactive, unequal, no associated abnormal vascular dilatation and skin secretion. There are corneal reflexes and doll's eyes phenomenon. No signs of facial weakness. There are gagging or coughing reflexes SENSATION: Responses to pain stimuli. MOTOR: Normal tone in the upper and lower extremity. Normal muscle bulk. No fasciculations. No spontaneous movement. REFLEXES: Deep tendon reflexes are symmetrical. No pathological reflexes. CEREBELLAR/COORDINATION: Deferred GAIT/STATION: deferred laboratory and microbiology Laboratory Tests 04/06/25 03:00 Test 04/06/25 03:00 Range/Units Serum Glucose 170 H 74-106 mg/dL Problem List Altered mental status Hypoxic encephalopathy Metabolic encephalopathy Toxic encephalopathy Acute on chronic respiratory failure Pneumoniae Leukocytosis/sepsis Anisocoria Etiology unclear Cachexia Assessment/Plan Monitoring Supportive treatment Follow-up lab Blood culture MRI head MRA neck Chest CT Stabilize vitals Respiratory support/vent management IV antibiotics Oxygen Midodrine More recommendation per clinical course This medical document was created using an electronic medical record system with [employer] dictation system. Although this document has been carefully reviewed, there may still be some phonetic and typographical errors. These areas are purely typographical due to imperfections of the software programs, and do not reflect any compromise in the patient's medical care. Prognosis guarded Dietary Evaluation Review Comments: 1) If patient remains NPO > 7 days, consider EN/TPN to meet at least 75% estimated daily needs 2) If gut is preferred, initiate Vital High Protein @ 40 mL/hr goal rate as tolerated. Flush with 50 mL free H2O Q6H. EN regimen will provide 960 kcals, 84g Pro, and 1003 mL free H2O (including TF flushes) per 24 hrs. Goal rate will meet ~ 95% estimated energy needs and ~ 93% estimated protein needs 3) Advance to cardiac diet when medically feasible, pending ST approval 4) Refer to outpatient RD for weight management 5) Follow-up with cardiology and pulmonology 6) Continue to monitor I&O, labs, and skin integrity Expected Outcomes/Goals: 1) patient to receive nutritional support within 7 days of NPO status 2) labs to improve 3) diet to advance 4) gradual wt gain 5) f/u in 2-3 days Plan discussed with: Other Critical Care Time(min): 35 RAMAN LAWTON MD Apr 06, 2025 09:01
[2025-04-06] MEDS: POTASSIUM CHL 20MEQ/100ML 100 ML IV SCH (09:30)
[2025-04-06] MEDS: fentaNYL Drip 2500mCg/250mlNS 250 ML IV SCH (11:00)
--- NOTE | 2025-04-06 11:11 | DVHPNRES ---
Progress Note Date Seen: Apr 06, 2025 Resident Creating Document: CRICKET GUAMAN RESIDENT Medical Necessity Reason Pt with a Central, PICC or Fol: Yes The following are medically ne: Central Line, Chin Catheter Subjective Review of Systems Patient is a 59 year old female with past medical history of CHF, Chronic obstructive pulmonary disease, GERD, hyperlipidemia who presented to hospital with chief complaints of shortness of breath. As per daughter patient had increased work of breathing, uses home oxygen 2 L, which was increased to 6 L at home for which saturation improved to 94%. Patient in the ER became altered and was intubated on 04/03/25. as per daughter echocardiogram showed 50% in [facility]. x-ray showed Stable chronic appearing bilateral interstitial pulmonary markings and mild bibasilar pulmonary airspace disease. past surgical history: tonsillectomy family history: reviewed, noncontributory Social history: per daughter patient has smoked since she was 15 years old and nicotine vape, used methamphetamine Patient seen and examined at bedside. intubated, mechanically ventilated, on AC mode; RR 20,VT 350, Fio2-35%, PEEP-5. on AC mode; RR 20,VT 350, Fio2-35%, PEEP-5. patient has multiple skin tears, is able to open her eyes but is not able to communicate. pupils are anisocoric. she is not on pressors, Objective vital signs Vital Sign Date Time Temp Pulse Resp B/P (MAP) Pulse Ox O2 Delivery O2 Flow Rate FiO2 04/06/25 09:43 103 20 108/66 (80) 90 35 04/06/25 08:00 Mechanical Ventilator+ 04/06/25 07:30 99.0 210.2 04/04/25 19:30 0 Total Intake and Output 04/05/25 04/05/25 04/06/25 14:59 22:59 06:59 Intake Total 70 ml 391 ml 373 ml Output Total 100 ml 900 ml Balance 70 ml 291 ml -527 ml medications Current Medications Medications Dose Ordered Sig/Guy Route Start Time Stop Time Status Last Admin Dose Admin Metronidazole 100 ml @ 100 mls/hr Q8HR IV 04/03/25 06:00 04/06/25 06:39 100 MLS/HR Azithromycin 250 ml @ 125 mls/hr DAILY IV 04/04/25 10:00 04/06/25 09:43 125 MLS/HR Albuterol 2.5 mg Q4HPRN PRN NEB 04/02/25 23:15 04/06/25 06:11 2.5 MG Ipratropium [place] 0.5 mg Q4HPRN PRN NEB 04/02/25 23:15 04/06/25 06:11 0.5 MG Methylprednisolone Sodium Succinate 40 mg BID IV 04/03/25 10:00 04/06/25 09:43 40 MG Famotidine 20 mg Q12HR IV 04/03/25 10:00 04/06/25 09:43 20 MG Sodium Chloride 1,000 ml @ 60 mls/hr [id number] IV 04/02/25 23:15 04/05/25 01:02 60 MLS/HR Acetaminophen/ Hydrocodone Bitart 1 tab Q4HP PRN PO 04/02/25 23:15 Ondansetron HCl 4 mg Q4HP PRN IV 04/02/25 23:15 Docusate Sodium 100 mg BIDPRN PRN PO 04/02/25 23:15 Acetaminophen 650 mg Q6HP PRN PO 04/02/25 23:15 Nitroglycerin 0.4 mg Q5MINP PRN SL 04/03/25 00:00 Morphine Sulfate 2 mg Q30M PRN IV 04/03/25 00:00 Midodrine 10 mg TID@0600,1200,1800 PO 04/03/25 12:00 04/06/25 06:39 10 MG Norepinephrine Bitartrate 250 ml @ 3.75 mls/hr Q24H IV 04/03/25 10:00 UNV Midazolam HCl 100 ml @ 1 mls/hr Q24H IV 04/03/25 10:00 04/06/25 03:38 6 MLS/HR Norepinephrine Bitartrate 250 ml @ 3.75 mls/hr Q24H IV 04/03/25 10:00 04/05/25 21:44 3.75 MLS/HR Acetaminophen 650 mg Q6HP PRN [place] 04/03/25 20:15 Amino Acids 0 ml @ 0 mls/hr PER PHARMACY IV 04/05/25 14:30 Diagnostic Test (Pha) 1 strip Q6HR 04/05/25 18:00 04/06/25 06:42 1 STRIP Insulin Human Regular FOLLOW SLIDING SCALE Q6HR SC 04/05/25 18:00 04/06/25 06:44 4 UNITS Dextrose 50 ml UD IV 04/05/25 14:30 Fentanyl Citrate 250 ml @ 2.5 mls/hr Q24H IV 04/06/25 05:30 Potassium Chloride 100 ml @ 50 mls/hr Q2H IV 04/06/25 07:30 04/06/25 11:29 04/06/25 09:49 50 MLS/HR Fat Emulsion Intravenous 50 ml/ Sodium Chloride 40 meq/Potassium Chloride 20 meq/ Potassium Phosphate 44 meq/ Calcium Gluconate 2.3 meq/Magnesium Sulfate 8 meq/ Multivitamins 10 ml/Chromium/ Copper/Manganese/ Zinc 1 ml/Amino Acids/Dextrose/ Purified Water 1,047.9462 ml @ 44 mls/hr [id number] IV 04/06/25 22:00 04/07/25 21:59 Examination Patient lying in bed General: Patient is intubated, sedated, is able to open her eyes HEENT: Normocephalic, atraumatic, moist mucous membranes Respiratory/pulmonary: diminished breath sounds bilaterally. Cardiovascular: Normal heart sounds S1 and S2 with no associated murmurs Abdomen: Abdomen nondistended, there is no pain to palpation in any of the abdominal quadrants, no palpable masses. Extremities: There is no peripheral edema present at the lower extremities. Peripheral Pulses: 3+ Radial (R). 3+ Radial (L). 3+ Dorsalis pedis (R). 3+ Dorsalis pedis(L) Skin: Multiple skin tears, no sacral wound present, Neurological: pupils are sluggish and anisocoric, left 3 mm right 2 mm laboratory and microbiology Laboratory Tests 04/06/25 03:00 Test 04/06/25 03:00 Range/Units Serum Glucose 170 H 74-106 mg/dL Microbiology Date/Time Source Procedure Growth Status 04/03/25 10:00 Sputum Endotracheal Wash Gram Stain - Final Resulted 04/03/25 10:00 Sputum Endotracheal Wash Respiratory Culture - Preliminary Resulted 04/02/25 20:04 Blood Blood Culture - Preliminary NO GROWTH AFTER 72 HOURS OF INCUBATION. Resulted Problem List/Assessment/Plan Problem List/Assessment/Plan Neurology Acute metabolic/hypoxic encephalopathy likely due to COPD exacerbation - Mechanically ventilated, sedated: RASS score -3 - ventilator setting: on AC mode; RR 20,VT 350, Fio2-35%, PEEP-5 - neurology on board - Ordered MRI of head and Neck, MRA angio of neck Cardiology Chronic diastolic Congestive heart failure - as per daughter EF of 50% Respiratory Sepsis likely due to below Acute on chronic hypoxic respiratory failure secondary to acute COPD exacerbation/ pneumonia Acute G +/- Bacterial PNA possible atelectasis - continue bronchodilators, - continue Solu-Medrol 40 mg - chest xray: Slight interval advancement of the endotracheal tube such that the tip now projects approximately 3.9 cm above the level of the vani. Remaining lines and tubes unchanged. Stable chronic appearing bilateral interstitial pulmonary markings and mild bibasilar pulmonary airspace disease - IV metronidazole, azithromycin changed to doxycycline, cefepime, micafungin - respiratory culture -showed for filamentous fungi GI/Liver Cachexia BMI 15.3 Severe protein malnutrition Hematology anemia of chronic disease -ordered iron panel Renal Electrolytes hyponatremia hypocalcemia hypophosphatemia - replete electrolytes - Monitor electrolytes Lines/tubes/devices Airway: Intubated via ETT on 04/03/25 Vascular access: Central line Rt IJ 04/05 and Rt femoral 04/03 Drips: Fentanyl, midazolam Diet: Vital HP DVT prophylaxis: Lovenox GI prophylaxis: Protonix Goals of car discussed with family for more than 29 minutes : Full code Care plan updated to the family, critical time spent more than 84 minutes excluding procedures and including discussion with family Case discussed with Dr. Briggs, RN Plan discussed with: Daughter, Other (RN) Dietary Evaluation Review Comments: 1) If patient remains NPO > 7 days, consider EN/TPN to meet at least 75% estimated daily needs 2) If gut is preferred, initiate Vital High Protein @ 40 mL/hr goal rate as tolerated. Flush with 50 mL free H2O Q6H. EN regimen will provide 960 kcals, 84g Pro, and 1003 mL free H2O (including TF flushes) per 24 hrs. Goal rate will meet ~ 95% estimated energy needs and ~ 93% estimated protein needs 3) Advance to cardiac diet when medically feasible, pending ST approval 4) Refer to outpatient RD for weight management 5) Follow-up with cardiology and pulmonology 6) Continue to monitor I&O, labs, and skin integrity Expected Outcomes/Goals: 1) patient to receive nutritional support within 7 days of NPO status 2) labs to improve 3) diet to advance 4) gradual wt gain 5) f/u in 2-3 days Date of Service: Apr 06, 2025 Billing Provider: REBECCA BRIGGS MD Common Visit Codes: 26749-[id number] CARE 30-74 MIN, [id number] CARE-EACH +30MIN CRICKET GUAMAN RESIDENT Apr 06, 2025 11:11 REBECCA BRIGGS MD Apr 07, 2025 15:34
[2025-04-06] MEDS: POTASSIUM PHOSPHATE 22 MEQ in SODIUM CHL 0.9% 100 ML IV ONE (11:35)
--- NOTE | 2025-04-06 11:47 | ECG ---
[facility] Test Date: 2025-04-03 Test Time: 18:32:11 Pat Name: FLACA FLAHERTY Department: [facility] ED Room: 0264 A Gender: F Lithograph Printer: MARIA ALEJANDRA : 1965 Requested By: KAEL ROBERTS Order Number: [id number] Reading MD: Jaime Larson Measurements Intervals Wing Rate: 108 P: 88 MO: 72 QRS: 104 QRSD: 80 T: 86 QT: 328 QTc: 440 Interpretive Statements Sinus tachycardia Probable lateral infarct, age indeterminate Anteroseptal infarct, old Electronically Signed On 04-06-2025 15:00:53 PDT by Jaime Larson Please click the below link to view image of tracing.
--- NOTE | 2025-04-06 11:52 | ECG ---
[facility] Test Date: 2025-04-02 Test Time: 19:48:15 Pat Name: FLACA FLAHERTY Department: [facility] ED Room: 0264 A Gender: F Account Clerk: JOSE R : 1965 Requested By: KAEL ROBERTS Order Number: [id number] Reading MD: Jaime Larson Measurements Intervals Clifford Rate: 135 P: 0 WI: 43 QRS: 257 QRSD: 158 T: -59 QT: 335 QTc: 503 Interpretive Statements Sinus tachycardia Multiform ventricular premature complexes Nonspecific IVCD with LAD Anteroseptal infarct, old Artifact in lead(s) III,aVL,aVF,V1,V2,V3,V4,V5,V6 and baseline wander in lead(s) I,II,aVR,aVL,aVF,V2,V3,V4,V6 Electronically Signed On 04-06-2025 14:54:29 PDT by Jaime Larson Please click the below link to view image of tracing.
[2025-04-06] MEDS ORDERED: SODIUM PHOSPHATES 20 MEQ in SODIUM CHL 0.9% 100 ML IV ONE (12:00)
--- NOTE | 2025-04-06 14:28 | DVHPN2 ---
Consult Progress Note Date Seen: Apr 05, 2025 Subjective Patient reports: Feels better (persistently febrile, 2mcg levophed , ) Objective vital signs Vital Sign Date Time Temp Pulse Resp B/P (MAP) Pulse Ox O2 Delivery O2 Flow Rate FiO2 04/06/25 13:34 77 20 87/50 (62) 95 35 04/06/25 10:00 Mechanical Ventilator+ 04/06/25 07:30 99.0 210.2 04/04/25 19:30 0 Total Intake and Output 04/05/25 04/05/25 04/06/25 15:00 23:00 07:00 Intake Total 330 ml 178 ml 326 ml Output Total 100 ml 900 ml Balance 330 ml 78 ml -574 ml medications Current Medications Medications Dose Ordered Sig/Guy Route Start Time Stop Time Status Last Admin Dose Admin Metronidazole 100 ml @ 100 mls/hr Q8HR IV 04/03/25 06:00 04/06/25 06:39 100 MLS/HR Azithromycin 250 ml @ 125 mls/hr DAILY IV 04/04/25 10:00 04/06/25 09:43 125 MLS/HR Albuterol 2.5 mg Q4HPRN PRN NEB 04/02/25 23:15 04/06/25 06:11 2.5 MG Ipratropium [place] 0.5 mg Q4HPRN PRN NEB 04/02/25 23:15 04/06/25 06:11 0.5 MG Methylprednisolone Sodium Succinate 40 mg BID IV 04/03/25 10:00 04/06/25 09:43 40 MG Famotidine 20 mg Q12HR IV 04/03/25 10:00 04/06/25 09:43 20 MG Sodium Chloride 1,000 ml @ 60 mls/hr [id number] IV 04/02/25 23:15 04/05/25 01:02 60 MLS/HR Acetaminophen/ Hydrocodone Bitart 1 tab Q4HP PRN PO 04/02/25 23:15 Ondansetron HCl 4 mg Q4HP PRN IV 04/02/25 23:15 Docusate Sodium 100 mg BIDPRN PRN PO 04/02/25 23:15 Acetaminophen 650 mg Q6HP PRN PO 04/02/25 23:15 Nitroglycerin 0.4 mg Q5MINP PRN SL 04/03/25 00:00 Morphine Sulfate 2 mg Q30M PRN IV 04/03/25 00:00 Midodrine 10 mg TID@0600,1200,1800 PO 04/03/25 12:00 04/06/25 11:35 10 MG Norepinephrine Bitartrate 250 ml @ 3.75 mls/hr Q24H IV 04/03/25 10:00 UNV Midazolam HCl 100 ml @ 1 mls/hr Q24H IV 04/03/25 10:00 04/06/25 03:38 6 MLS/HR Norepinephrine Bitartrate 250 ml @ 3.75 mls/hr Q24H IV 04/03/25 10:00 04/05/25 21:44 3.75 MLS/HR Acetaminophen 650 mg Q6HP PRN [place] 04/03/25 20:15 Amino Acids 0 ml @ 0 mls/hr PER PHARMACY IV 04/05/25 14:30 Diagnostic Test (Pha) 1 strip Q6HR 04/05/25 18:00 04/06/25 11:53 1 STRIP Insulin Human Regular FOLLOW SLIDING SCALE Q6HR SC 04/05/25 18:00 04/06/25 11:50 8 UNITS Dextrose 50 ml UD IV 04/05/25 14:30 Fentanyl Citrate 250 ml @ 2.5 mls/hr Q24H IV 04/06/25 05:30 04/06/25 11:00 2.5 MLS/HR Fat Emulsion Intravenous 50 ml/ Sodium Chloride 40 meq/Potassium Chloride 20 meq/ Potassium Phosphate 44 meq/ Calcium Gluconate 2.3 meq/Magnesium Sulfate 8 meq/ Multivitamins 10 ml/Chromium/ Copper/Manganese/ Zinc 1 ml/Amino Acids/Dextrose/ Purified Water 1,047.9462 ml @ 44 mls/hr [id number] IV 04/06/25 22:00 04/07/25 21:59 laboratory and microbiology Laboratory Tests 04/06/25 03:00 Test 04/06/25 03:00 Range/Units Serum Glucose 170 H 74-106 mg/dL Problem List/Assessment/Plan Problem List/Assessment/Plan Today's Encounter Date: 04/06/2025 Patient Name: Pao Provider: Gordon Coley ASSESSMENT AND PLAN: ID Problem List: -Community-acquired pneumonia (CXR: patchy right > left opacities) -Septic shock (ICU transfer in the setting of pneumonia; BP 94/54 noted) -Acute on chronic respiratory failure with hypercapnia (pH 7.35, pCO2 83.1) requiring mechanical ventilation -Suspected COPD exacerbation related to pneumonia -Prolonged QTc (503 ms) fluoroquinolones avoided -Penicillin allergy (unknown reaction, since 2021) -Leukocytosis (WBC 22.5 K/L) -Anemia (Hgb 9.7 g/dL) -Hyponatremia (Na 133 mmol/L) -History of CHF, GERD, anxiety, hypertension, hyperlipidemia; chronic hypotension noted Assessment This is a 59 y.o. female with a past medical history of CHF, anxiety, COPD, GERD, hypertension, hyperlipidemia, and chronic hypotension who presents with shortness of breath and hypoxemia (desaturation to 70% on 6 L NC). ED CXR showed patchy right greater than left opacities favoring infection; admitted for pneumonia. Transferred to ICU for septic shock in the setting of pneumonia. Viral testing (influenza A/B, COVID-19) negative. UA without growth. Blood cultures no growth to date (04/05). ABG with hypercapnia (pH 7.35, pCO2 83.1). BNP 38.81. EKG with QTc 503 ms. Preliminary sputum culture with rare filamentous fungi (awaiting further results). The clinical picture is consistent with pneumonia with concurrent COPD exacerbation and hypercapnic respiratory failure requiring mechanical ventilation. 04/05: CXR with improved pneumonia, persistent fevers, improved levophed Plan: -Antimicrobials: -Continue azithromycin and metronidazole (Flagyl) as per current regimen. -Avoid fluoroquinolones due to prolonged QTc. -Given penicillin allergy and QT prolongation, if additional Gram-negative coverage is needed, consider aztreonam or cefepime. -Follow up sputum culture results; adjust therapy per susceptibilities. -Follow up blood cultures; currently no growth to date (04/05). -Respiratory: -Mechanical ventilation management per water pumper team; current settings documented below. -Wean as tolerated to high-flow nasal cannula when appropriate. -COPD therapies per pulmonology: bronchodilators, systemic steroids, mucolytics. -Monitoring: -Monitor temperature curve; if persistent fevers, reassess antimicrobial coverage. -Repeat chest X-ray daily. -Maintain MAP > 65 mmHg; titrate vasoactive support as needed. -Monitor QTc; continue to avoid QT-prolonging agents where feasible. 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 -Diagnostics: -Recommend sputum culture (pending/follow-up). -Continue to monitor labs (CBC, BMP, lactate) and ABGs as clinically indicated. Authorized and Performed by: Gordon Coley Total critical care time: Approximately 76 minutes Due to a high probability of clinically significant, life threatening deterioration, the patient required my highest level of preparedness to intervene emergently and I personally spent this critical care time directly and personally managing the patient. This critical care time included obtaining a history; examining the patient; pulse oximetry; ordering and review of studies; arranging urgent treatment with development of a management plan; evaluation of patient's response to treatment; frequent reassessment; and, discussions with other providers. This critical care time was performed to assess and manage the high probability of imminent, life-threatening deterioration that could result in multi-organ failure. It was exclusive of separately billable procedures and treating other patients and teaching time. Isolation Precautions: Not provided in transcript. \ Physical Exam: General: NAD Neck: Supple. No masses. HEENT: PERRL. Normal lids and conjunctiva. Moist mucous membranes. Oropharynx without lesions, exudates or excessive erythema. Normal appearance of the external aspects of the nose and ears. Heart: Regular rhythm, normal rate. No murmur. No lower extremity edema. Lungs: Normal respiratory effort. Clear to auscultation bilaterally. Wheezes present. Patient is mechanically ventilated. Abdomen: Soft. Non-tender. Non-distended. No masses or abdominal hernia. Msk: No digital cyanosis. Normal strength and tone in all 4 limbs Skin: Warm and dry, no rashes. Neuro: Alert. No facial droop or slurred speech. Extra-ocular movements intact. Sensation intact to soft touch in all 4 limbs. Psych: Appropriate mood. Full affect. Oriented to person, place, time, and situation. Plan discussed with: Patient Dietary Evaluation Review Comments: 1) If patient remains NPO > 7 days, consider EN/TPN to meet at least 75% estimated daily needs 2) If gut is preferred, initiate Vital High Protein @ 40 mL/hr goal rate as tolerated. Flush with 50 mL free H2O Q6H. EN regimen will provide 960 kcals, 84g Pro, and 1003 mL free H2O (including TF flushes) per 24 hrs. Goal rate will meet ~ 95% estimated energy needs and ~ 93% estimated protein needs 3) Advance to cardiac diet when medically feasible, pending ST approval 4) Refer to outpatient RD for weight management 5) Follow-up with cardiology and pulmonology 6) Continue to monitor I&O, labs, and skin integrity Expected Outcomes/Goals: 1) patient to receive nutritional support within 7 days of NPO status 2) labs to improve 3) diet to advance 4) gradual wt gain 5) f/u in 2-3 days GORDON COLEY MD Apr 06, 2025 14:28
--- NOTE | 2025-04-06 14:35 | DVHPN2 ---
Consult Progress Note Date Seen: Apr 06, 2025 Subjective Patient reports: Feels better (leukocytosis improving, off pressors, no fevers) Objective vital signs Vital Sign Date Time Temp Pulse Resp B/P (MAP) Pulse Ox O2 Delivery O2 Flow Rate FiO2 04/06/25 13:34 77 20 87/50 (62) 95 35 04/06/25 10:00 Mechanical Ventilator+ 04/06/25 07:30 99.0 210.2 04/04/25 19:30 0 Total Intake and Output 04/05/25 04/05/25 04/06/25 15:00 23:00 07:00 Intake Total 330 ml 178 ml 326 ml Output Total 100 ml 900 ml Balance 330 ml 78 ml -574 ml medications Current Medications Medications Dose Ordered Sig/Guy Route Start Time Stop Time Status Last Admin Dose Admin Metronidazole 100 ml @ 100 mls/hr Q8HR IV 04/03/25 06:00 04/06/25 06:39 100 MLS/HR Azithromycin 250 ml @ 125 mls/hr DAILY IV 04/04/25 10:00 04/06/25 09:43 125 MLS/HR Albuterol 2.5 mg Q4HPRN PRN NEB 04/02/25 23:15 04/06/25 06:11 2.5 MG Ipratropium [place] 0.5 mg Q4HPRN PRN NEB 04/02/25 23:15 04/06/25 06:11 0.5 MG Methylprednisolone Sodium Succinate 40 mg BID IV 04/03/25 10:00 04/06/25 09:43 40 MG Famotidine 20 mg Q12HR IV 04/03/25 10:00 04/06/25 09:43 20 MG Sodium Chloride 1,000 ml @ 60 mls/hr [id number] IV 04/02/25 23:15 04/05/25 01:02 60 MLS/HR Acetaminophen/ Hydrocodone Bitart 1 tab Q4HP PRN PO 04/02/25 23:15 Ondansetron HCl 4 mg Q4HP PRN IV 04/02/25 23:15 Docusate Sodium 100 mg BIDPRN PRN PO 04/02/25 23:15 Acetaminophen 650 mg Q6HP PRN PO 04/02/25 23:15 Nitroglycerin 0.4 mg Q5MINP PRN SL 04/03/25 00:00 Morphine Sulfate 2 mg Q30M PRN IV 04/03/25 00:00 Midodrine 10 mg TID@0600,1200,1800 PO 04/03/25 12:00 04/06/25 11:35 10 MG Norepinephrine Bitartrate 250 ml @ 3.75 mls/hr Q24H IV 04/03/25 10:00 UNV Midazolam HCl 100 ml @ 1 mls/hr Q24H IV 04/03/25 10:00 04/06/25 03:38 6 MLS/HR Norepinephrine Bitartrate 250 ml @ 3.75 mls/hr Q24H IV 04/03/25 10:00 04/05/25 21:44 3.75 MLS/HR Acetaminophen 650 mg Q6HP PRN [place] 04/03/25 20:15 Amino Acids 0 ml @ 0 mls/hr PER PHARMACY IV 04/05/25 14:30 Diagnostic Test (Pha) 1 strip Q6HR 04/05/25 18:00 04/06/25 11:53 1 STRIP Insulin Human Regular FOLLOW SLIDING SCALE Q6HR SC 04/05/25 18:00 04/06/25 11:50 8 UNITS Dextrose 50 ml UD IV 04/05/25 14:30 Fentanyl Citrate 250 ml @ 2.5 mls/hr Q24H IV 04/06/25 05:30 04/06/25 11:00 2.5 MLS/HR Fat Emulsion Intravenous 50 ml/ Sodium Chloride 40 meq/Potassium Chloride 20 meq/ Potassium Phosphate 44 meq/ Calcium Gluconate 2.3 meq/Magnesium Sulfate 8 meq/ Multivitamins 10 ml/Chromium/ Copper/Manganese/ Zinc 1 ml/Amino Acids/Dextrose/ Purified Water 1,047.9462 ml @ 44 mls/hr [id number] IV 04/06/25 22:00 04/07/25 21:59 laboratory and microbiology Laboratory Tests 04/06/25 03:00 Test 04/06/25 03:00 Range/Units Serum Glucose 170 H 74-106 mg/dL Problem List/Assessment/Plan Problem List/Assessment/Plan Today's Encounter Date: 04/06/2025 Patient Name: Pao Provider: Gordon Coley ASSESSMENT AND PLAN: ID Problem List: -Community-acquired pneumonia (CXR: patchy right > left opacities) -Septic shock (ICU transfer in the setting of pneumonia; BP 94/54 noted) -Acute on chronic respiratory failure with hypercapnia (pH 7.35, pCO2 83.1) requiring mechanical ventilation -Suspected COPD exacerbation related to pneumonia -Prolonged QTc (503 ms) fluoroquinolones avoided -Penicillin allergy (unknown reaction, since 2021) -Leukocytosis (WBC 22.5 K/L) -Anemia (Hgb 9.7 g/dL) -Hyponatremia (Na 133 mmol/L) -History of CHF, GERD, anxiety, hypertension, hyperlipidemia; chronic hypotension noted Assessment This is a 59 y.o. female with a past medical history of CHF, anxiety, COPD, GERD, hypertension, hyperlipidemia, and chronic hypotension who presents with shortness of breath and hypoxemia (desaturation to 70% on 6 L NC). ED CXR showed patchy right greater than left opacities favoring infection; admitted for pneumonia. Transferred to ICU for septic shock in the setting of pneumonia. Viral testing (influenza A/B, COVID-19) negative. UA without growth. Blood cultures no growth to date (04/05). ABG with hypercapnia (pH 7.35, pCO2 83.1). BNP 38.81. EKG with QTc 503 ms. Preliminary sputum culture with rare filamentous fungi (awaiting further results). The clinical picture is consistent with pneumonia with concurrent COPD exacerbation and hypercapnic respiratory failure requiring mechanical ventilation. 04/05: CXR with improved pneumonia, persistent fevers, improved levophed 04/06: prolonged qtc , fungi filamentous on cxr Plan: -Antimicrobials: -stop azithromycin and flagyl, swich to cefepime and doxycycline -start micafungin - test for cocci and aspergillus - agree with chest CT -Avoid fluoroquinolones due to prolonged QTc. -Follow up sputum culture results; adjust therapy per susceptibilities. -Follow up blood cultures; currently no growth to date (04/05). -Respiratory: -Mechanical ventilation management per homicide detective team; current settings documented below. -Wean as tolerated to high-flow nasal cannula when appropriate. -COPD therapies per pulmonology: bronchodilators, systemic steroids, mucolytics. -Monitoring: -Monitor temperature curve; if persistent fevers, reassess antimicrobial coverage. -Repeat chest X-ray daily. -Maintain MAP > 65 mmHg; titrate vasoactive support as needed. -Monitor QTc; continue to avoid QT-prolonging agents where feasible. 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 -Diagnostics: -Recommend sputum culture (pending/follow-up). -Continue to monitor labs (CBC, BMP, lactate) and ABGs as clinically indicated. Authorized and Performed by: Gordon Coley Total critical care time: Approximately 76 minutes Due to a high probability of clinically significant, life threatening deterioration, the patient required my highest level of preparedness to intervene emergently and I personally spent this critical care time directly and personally managing the patient. This critical care time included obtaining a history; examining the patient; pulse oximetry; ordering and review of studies; arranging urgent treatment with development of a management plan; evaluation of patient's response to treatment; frequent reassessment; and, discussions with other providers. This critical care time was performed to assess and manage the high probability of imminent, life-threatening deterioration that could result in multi-organ failure. It was exclusive of separately billable procedures and treating other patients and teaching time. Isolation Precautions: Not provided in transcript. \ Physical Exam: General: NAD Neck: Supple. No masses. HEENT: PERRL. Normal lids and conjunctiva. Moist mucous membranes. Oropharynx without lesions, exudates or excessive erythema. Normal appearance of the external aspects of the nose and ears. Heart: Regular rhythm, normal rate. No murmur. No lower extremity edema. Lungs: Normal respiratory effort. Clear to auscultation bilaterally. Wheezes present. Patient is mechanically ventilated. Abdomen: Soft. Non-tender. Non-distended. No masses or abdominal hernia. Msk: No digital cyanosis. Normal strength and tone in all 4 limbs Skin: Warm and dry, no rashes. Neuro: Alert. No facial droop or slurred speech. Extra-ocular movements intact. Sensation intact to soft touch in all 4 limbs. Psych: Appropriate mood. Full affect. Oriented to person, place, time, and situation. Plan discussed with: Patient Dietary Evaluation Review Comments: 1) If patient remains NPO > 7 days, consider EN/TPN to meet at least 75% estimated daily needs 2) If gut is preferred, initiate Vital High Protein @ 40 mL/hr goal rate as tolerated. Flush with 50 mL free H2O Q6H. EN regimen will provide 960 kcals, 84g Pro, and 1003 mL free H2O (including TF flushes) per 24 hrs. Goal rate will meet ~ 95% estimated energy needs and ~ 93% estimated protein needs 3) Advance to cardiac diet when medically feasible, pending ST approval 4) Refer to outpatient RD for weight management 5) Follow-up with cardiology and pulmonology 6) Continue to monitor I&O, labs, and skin integrity Expected Outcomes/Goals: 1) patient to receive nutritional support within 7 days of NPO status 2) labs to improve 3) diet to advance 4) gradual wt gain 5) f/u in 2-3 days GORDON COLEY MD Apr 06, 2025 14:35
[2025-04-06] MEDS: DOXYCYCLINE 100MG/100ML 100 ML IV SCH (16:57)
[2025-04-06] MEDS ORDERED: TPN PER PHARMACY IV NR (22:00)
[2025-04-06] MEDS: CEFEPIME 2GM/50ML NS 50 ML IV ONE (22:37)
[2025-04-06] MEDS: Vital High Protein 1liter Bottle GT SCH (23:07)
[2025-04-07] VITALS (104 sets, daily range): BP systolic 68–156; BP diastolic 39–95; PULSE 80–118; RESP 17–24; TEMP 93.2–99; O2SAT 90–100
--- NOTE | 2025-04-07 03:39 | DVH ---
CHEST RADIOGRAPH Indication: on vent Technique: Single frontal view of the chest was obtained COMPARISON: CT CHEST WITHOUT CONTRAST on DOS: 04/06/25, XY CHEST XRAY 1 VIEW on DOS: 04/06/25, XY [facility] PORTABLE on DOS: 04/05/25, XY CHEST XRAY 1 VIEW on DOS: 04/02/25, CXRP on DOS: 02/07/22 FINDINGS: Lines and Tubes: Unchanged. Lungs: Stable appearing small right pleural effusion and chronic appearing bilateral interstitial pul monary markings. No pneumothorax. Cardiomediastinal contours: Unremarkable Bones: Unremarkable IMPRESSION: 1. Stable appearing small right pleural effusion and chronic appearing bilateral interstitial pulmona ry markings. 2. Lines and tubes unchanged.
[2025-04-07 03:47] LABS: Hematocrit 26.3 % (36.0-46.0); Hemoglobin 8.8 g/dL (12.2-16.2); Mean Corpuscular Hemoglobin 30.9 pg (28.0-32.0); Mean Corpuscular Volume 92.7 fL (80.0-100.0); Nucleated Red Blood Cells % 0.0 %
[2025-04-07 04:00] LABS: Alanine Aminotransferase 20 U/L (7-40); Albumin 2.5 g/dL (3.2-4.8); Alkaline Phosphatase 55 U/L (46-116); Anion Gap 5 (5-15); BUN/Creatinine Ratio 42.0 (10.0-20.0); Blood Urea Nitrogen 21 mg/dL (9-23); Calcium 7.9 mg/dL (8.7-10.4); Carbon Dioxide 36 mmol/L (20-31); Chloride 102 mmol/L (98-107); Glucose 145 mg/dL (74-106); Magnesium 1.5 mg/dL (1.6-2.6); Potassium 3.6 mmol/L (3.5-5.1); Sodium 143 mmol/L (136-145); Total Protein 4.6 g/dL (5.7-8.2)
[2025-04-07 04:01] LABS: Bilirubin, Total 0.3 mg/dL (0.2-1.0)
--- NOTE | 2025-04-07 04:52 | DVH ---
Procedure: CT CHEST WITHOUT CONTRAST Reason for study/Clinical History: Anisocoria. Comparison Study: XY CHEST XRAY 1 VIEW on DOS: 04/07/25 Exam Date: 04/07/2025 04:10 AM TECHNIQUE: Multidetector CT of the chest was performed from the lung apices to the upper abdomen with out the use of intravenous contract. Axial, coronal and sagittal multiplanar reformats were performed . Radiation Dose Information: CT Dose: CTDI volume is 4.56 mGy. Dose-length product is 168.5 mGy*cm The dose indicators for CT are the volume Computed Tomography (CT) Dose Index (CTDIvol) and the Dose Length Product (DLP), and are measured in units of mGy and mGy-cm, respectively. These indicators are not patient dose, but values generated from the CT scanner acquisition factors. The report includes radiation exposure data for exposures received during this examination. FINDINGS: Lower neck: Normal thyroid. Lungs: Severe centrilobular emphysema. There is consolidation in the left lower lobe. Multiple small er nodular foci demonstrated in the left lower lobe. Central airways: Patent. Pleura: No pleural effusion or significant pneumothorax. Heart/Vascular Structures: Normal heart size. No pericardial effusion. Coronary artery calcifications noted. Normal caliber thoracic aorta and main pulmonary artery Lymph Nodes: No adenopathy Musculoskeletal: The bones are demineralized. There is a severe compression deformity of the T5-L1 ve rtebral bodies. There is body wall anasarca. Soft tissues: Normal. Upper abdomen: Limited portions of the upper abdomen are unremarkable. IMPRESSION: 1. Left lower lobe consolidation and multiple smaller nodular foci. Findings are concerning for pneu monia. 2. Severe centrilobular emphysema. 3. Severe compression deformities of the T5-L1 vertebral bodies of indeterminate age. Radiation optimization: All CT scans at this facility use at least one of these dose optimization evaristo hniques: automated exposure control mA and/or kV adjustment per patient size (includes targeted exam s where dose is matched to clinical indication) or iterative reconstruction.
[2025-04-07] MEDS: CEFEPIME 2GM/50ML NS 50 ML IV SCH (06:15)
[2025-04-07] MEDS: MAGNESIUM SULFATE 1GM/100ML 100 ML IV SCH (07:36)
[2025-04-07 08:00] LABS: Base Excess 7.2 mmol/L (-2.0-3.0)
[2025-04-07] MEDS: MICAFUNGIN SODIUM 100 MG in SODIUM CHL 0.9% 100 ML IV SCH (09:46)
[2025-04-07] MEDS: Pro-Stat SF 30ml Vanilla PO SCH (09:47)
--- NOTE | 2025-04-07 10:09 | DVHPN2 ---
Progress Note - Dictate Date Seen: Apr 07, 2025 Medical Necessity Reason Pt with a Central, PICC or Fol: Yes The following are medically ne: Central Line, Chin Catheter Subjective Ms. Cdeeno is a 59 years old female with a history of hypotension, dyslipidemia, congestive heart failure, COPD, GERD, anxiety, she was brought to the [facility] on 03/30/2025 with a chief complaint of shortness breath. I have seen and examined the patient, I have discussed with her nurse, she is intubated, but is awake, follows verbal commands, he moves the arms and legs Pupil size: In the morning on 04/05/2025: Equal. Early afternoon: right: 3 mm, left: 5 mm. around 6:30PM, right: 2 mm, left: 3 mm, sluggish light reflexes 04/06/2025: Rt: 3, Lt: 3-4. 04/07/25: Rt: 2mm, Lt: 3mm Blood culture, 04/02/2025: UDS, 04/02/2025: Negative Plasma alcohol, 04/02/2025: <3 Urinalysis, 04/02/2025: WBC: 1, urine leukocyte esterase: Negative ABG, 04/05/2025: Carbon dioxide retention WBC/HB/PLT/MCV, 04/02/2025: 22.5/9.7/236/95.6, 04/03/2025: 71.9/10.8/245/96.3, 04/04/2025: 26.6/9.8/251/95.5, 04/06/2025: 14.5/8.8/278/93.6 CMP, 04/04/2025: Unremarkable Chest x-ray, 04/02/2025: Patchy olice-avnspiu-ezwb-left bibasilar opacities, favoring infection Chest x-ray 04/05/2025: 1. Endotracheal tube 5.8 cm above the vani 2. Right internal jugular catheter in place at the cavoatrial junction. 3. Enteric tube below the left diaphragm less likely in the stomach. 4. IMPROVING airspace disease right lower lobe. CT head, 04/05/2025:1. No evidence of acute intracranial abnormality. 2. Mild subcortical and periventricular low attenuation, nonspecific but most commonly associated with sequelae of chronic microvascular ischemic changes although other etiologies are not excluded. vital signs Vital Sign Date Time Temp Pulse Resp B/P (MAP) Pulse Ox O2 Delivery O2 Flow Rate FiO2 04/07/25 09:49 105 20 118/71 (87) 94 35 04/07/25 07:30 97.9 208.2 04/07/25 06:00 Mechanical Ventilator+ Total Intake and Output 04/06/25 04/06/25 04/07/25 15:00 23:00 07:00 Intake Total 145.5 ml 237.00 ml 411.25 ml Output Total 475 ml 650 ml Balance 145.5 ml -238.00 ml -238.75 ml medications Current Medications Medications Dose Ordered Sig/Guy Route Start Time Stop Time Status Last Admin Dose Admin Methylprednisolone Sodium Succinate 40 mg BID IV 04/03/25 10:00 04/07/25 09:46 40 MG Famotidine 20 mg Q12HR IV 04/03/25 10:00 04/07/25 09:46 20 MG Docusate Sodium 100 mg BIDPRN PRN PO 04/02/25 23:15 Acetaminophen 650 mg Q6HP PRN PO 04/02/25 23:15 Nitroglycerin 0.4 mg Q5MINP PRN SL 04/03/25 00:00 Norepinephrine Bitartrate 250 ml @ 3.75 mls/hr Q24H IV 04/03/25 10:00 UNV Midazolam HCl 100 ml @ 1 mls/hr Q24H IV 04/03/25 10:00 04/06/25 22:50 5 MLS/HR Norepinephrine Bitartrate 250 ml @ 3.75 mls/hr Q24H IV 04/03/25 10:00 04/05/25 21:44 3.75 MLS/HR Acetaminophen 650 mg Q6HP PRN NE 04/03/25 20:15 Fentanyl Citrate 250 ml @ 2.5 mls/hr Q24H IV 04/06/25 05:30 04/06/25 11:00 2.5 MLS/HR Fat Emulsion Intravenous 50 ml/ Sodium Chloride 40 meq/Potassium Chloride 20 meq/ Potassium Phosphate 44 meq/ Calcium Gluconate 2.3 meq/Magnesium Sulfate 8 meq/ Multivitamins 10 ml/Chromium/ Copper/Manganese/ Zinc 1 ml/Amino Acids/Dextrose/ Purified Water 1,047.9462 ml @ 44 mls/hr [id number] IV 04/06/25 22:00 04/06/25 22:00 Cancel Cefepime HCl 50 ml @ 12.5 mls/hr Q12HR@0600,1800 IV 04/07/25 06:00 04/07/25 06:15 12.5 MLS/HR Micafungin Sodium 100 mg/Sodium Chloride 100 ml @ 100 mls/hr DAILY IV 04/07/25 10:00 04/07/25 09:46 100 MLS/HR Doxycycline Hyclate 100 ml @ 50 mls/hr Q12H IV 04/06/25 14:45 04/07/25 02:38 50 MLS/HR Enteral Nutritional Formula 1,000 ml 40ML/HR GT 04/06/25 15:15 04/06/25 23:07 1,000 ML Amino Acid Protein 30 ml DAILY PO 04/07/25 10:00 04/07/25 09:47 30 ML Albuterol 2.5 mg Q8H NEB 04/07/25 14:00 Ipratropium [place] 0.5 mg Q8H NEB 04/07/25 14:00 objective The patient is well-nourished and well-developed with no distress. The patient is intubated MENTAL STATUS: Subjective CRANIAL NERVES: Pupils are round and reactive, unequal, no associated abnormal vascular dilatation and skin secretion. There are corneal reflexes and doll's eyes phenomenon. No signs of facial weakness. There are gagging or coughing reflexes SENSATION: Responses to pain stimuli. MOTOR: Normal tone in the upper and lower extremity. Normal muscle bulk. No fasciculations. No spontaneous movement. REFLEXES: Deep tendon reflexes are symmetrical. No pathological reflexes. CEREBELLAR/COORDINATION: Deferred GAIT/STATION: deferred laboratory and microbiology Laboratory Tests 04/07/25 03:07 Test 04/07/25 03:07 Range/Units Serum Glucose 145 H 74-106 mg/dL Problem List Altered mental status Hypoxic encephalopathy Metabolic encephalopathy Toxic encephalopathy Acute on chronic respiratory failure Pneumoniae Leukocytosis/sepsis Anisocoria Etiology unclear Cachexia Assessment/Plan Monitoring Supportive treatment Follow-up lab Blood culture MRI head MRA neck Stabilize vitals Respiratory support/vent management IV antibiotics Oxygen Midodrine Improving Consider CPAP trial/extubation More recommendation per clinical course This medical document was created using an electronic medical record system with click[employer] dictation system. Although this document has been carefully reviewed, there may still be some phonetic and typographical errors. These areas are purely typographical due to imperfections of the software programs, and do not reflect any compromise in the patient's medical care. Prognosis guarded Dietary Evaluation Review Comments: 1) If patient remains NPO > 7 days, consider EN/TPN to meet at least 75% estimated daily needs 2) If gut is preferred, initiate Vital High Protein @ 40 mL/hr goal rate as tolerated. Flush with 50 mL free H2O Q6H. EN regimen will provide 960 kcals, 84g Pro, and 1003 mL free H2O (including TF flushes) per 24 hrs. Goal rate will meet ~ 95% estimated energy needs and ~ 93% estimated protein needs 3) Advance to cardiac diet when medically feasible, pending ST approval 4) Refer to outpatient RD for weight management 5) Follow-up with cardiology and pulmonology 6) Continue to monitor I&O, labs, and skin integrity Expected Outcomes/Goals: 1) patient to receive nutritional support within 7 days of NPO status 2) labs to improve 3) diet to advance 4) gradual wt gain 5) f/u in 2-3 days Plan discussed with: Other Critical Care Time(min): 30 RAMAN LAWTON MD Apr 07, 2025 10:09
--- NOTE | 2025-04-07 13:27 | DVHPNRES ---
Progress Note Date Seen: Apr 07, 2025 Resident Creating Document: CRICKET GUAMAN RESIDENT Medical Necessity Reason Pt with a Central, PICC or Fol: Yes The following are medically ne: Central Line, Chin Catheter Subjective Review of Systems Patient is a 59 year old female with past medical history of CHF, Chronic obstructive pulmonary disease, GERD, hyperlipidemia who presented to hospital with chief complaints of shortness of breath. As per daughter patient had increased work of breathing, uses home oxygen 2 L, which was increased to 6 L at home for which saturation improved to 94%. Patient in the ER became altered and was intubated on 04/03/25. as per daughter echocardiogram showed 50% in [facility]. x-ray showed Stable chronic appearing bilateral interstitial pulmonary markings and mild bibasilar pulmonary airspace disease. past surgical history: tonsillectomy family history: reviewed, noncontributory Social history: per daughter patient has smoked since she was 15 years old and nicotine vape, used methamphetamine Patient seen and examined at bedside. intubated, mechanically ventilated, on AC mode; RR 20,VT 350, Fio2-35%, PEEP-5. patient has multiple skin tears, is able to open her eyes but is not able to communicate. pupils are anisocoric. She is on Levo 8. no overnight events were reported, antibiotics changed to doxycycline, cefepime, micafungin. MRI pending. Chest CT showed lower lobe consolidation, multiple small foci, severe centrilobar Emphysema. Objective vital signs Vital Sign Date Time Temp Pulse Resp B/P (MAP) Pulse Ox O2 Delivery O2 Flow Rate FiO2 04/07/25 12:45 124/80 04/07/25 11:57 108 20 94 30 04/07/25 10:45 97.5 207.5 04/07/25 10:00 Mechanical Ventilator+ Total Intake and Output 04/06/25 04/06/25 04/07/25 15:00 23:00 07:00 Intake Total 145.5 ml 237.00 ml 411.25 ml Output Total 475 ml 650 ml Balance 145.5 ml -238.00 ml -238.75 ml medications Current Medications Medications Dose Ordered Sig/Guy Route Start Time Stop Time Status Last Admin Dose Admin Methylprednisolone Sodium Succinate 40 mg BID IV 04/03/25 10:00 04/07/25 09:46 40 MG Famotidine 20 mg Q12HR IV 04/03/25 10:00 04/07/25 09:46 20 MG Docusate Sodium 100 mg BIDPRN PRN PO 04/02/25 23:15 Acetaminophen 650 mg Q6HP PRN PO 04/02/25 23:15 Nitroglycerin 0.4 mg Q5MINP PRN SL 04/03/25 00:00 Norepinephrine Bitartrate 250 ml @ 3.75 mls/hr Q24H IV 04/03/25 10:00 UNV Midazolam HCl 100 ml @ 1 mls/hr Q24H IV 04/03/25 10:00 04/06/25 22:50 5 MLS/HR Norepinephrine Bitartrate 250 ml @ 3.75 mls/hr Q24H IV 04/03/25 10:00 04/05/25 21:44 3.75 MLS/HR Acetaminophen 650 mg Q6HP PRN NM 04/03/25 20:15 Fentanyl Citrate 250 ml @ 2.5 mls/hr Q24H IV 04/06/25 05:30 04/06/25 11:00 2.5 MLS/HR Fat Emulsion Intravenous 50 ml/ Sodium Chloride 40 meq/Potassium Chloride 20 meq/ Potassium Phosphate 44 meq/ Calcium Gluconate 2.3 meq/Magnesium Sulfate 8 meq/ Multivitamins 10 ml/Chromium/ Copper/Manganese/ Zinc 1 ml/Amino Acids/Dextrose/ Purified Water 1,047.9462 ml @ 44 mls/hr [id number] IV 04/06/25 22:00 04/06/25 22:00 Cancel Cefepime HCl 50 ml @ 12.5 mls/hr Q12HR@0600,1800 IV 04/07/25 06:00 04/07/25 06:15 12.5 MLS/HR Micafungin Sodium 100 mg/Sodium Chloride 100 ml @ 100 mls/hr DAILY IV 04/07/25 10:00 04/07/25 09:46 100 MLS/HR Doxycycline Hyclate 100 ml @ 50 mls/hr Q12H IV 04/06/25 14:45 04/07/25 02:38 50 MLS/HR Enteral Nutritional Formula 1,000 ml 40ML/HR GT 04/06/25 15:15 04/06/25 23:07 1,000 ML Amino Acid Protein 30 ml DAILY PO 04/07/25 10:00 04/07/25 09:47 30 ML Albuterol 2.5 mg Q8H NEB 04/07/25 14:00 Ipratropium [place] 0.5 mg Q8H NEB 04/07/25 14:00 Examination Patient lying in bed General: Patient is intubated, sedated, is able to open her eyes HEENT: Normocephalic, atraumatic, moist mucous membranes Respiratory/pulmonary: diminished breath sounds bilaterally. Cardiovascular: Normal heart sounds S1 and S2 with no associated murmurs Abdomen: Abdomen nondistended, there is no pain to palpation in any of the abdominal quadrants, no palpable masses. Extremities: There is no peripheral edema present at the lower extremities. Peripheral Pulses: 3+ Radial (R). 3+ Radial (L). 3+ Dorsalis pedis (R). 3+ Dorsalis pedis(L) Skin: Multiple skin tears, no sacral wound present, Neurological: pupils are sluggish and anisocoric, left 3 mm right 2 mm laboratory and microbiology Laboratory Tests 04/07/25 03:07 Test 04/07/25 03:07 Range/Units Serum Glucose 145 H 74-106 mg/dL Microbiology Date/Time Source Procedure Growth Status 04/05/25 08:00 Nose MRSA Screen - Final Complete 04/03/25 10:00 Sputum Endotracheal Wash Gram Stain - Final Resulted 04/03/25 10:00 Sputum Endotracheal Wash Respiratory Culture - Preliminary Resulted 04/02/25 20:04 Blood Blood Culture - Preliminary NO GROWTH AFTER 72 HOURS OF INCUBATION. Resulted Problem List/Assessment/Plan Problem List/Assessment/Plan Neurology Acute metabolic/hypoxic encephalopathy likely due to COPD exacerbation - Mechanically ventilated, sedated: RASS score -3 - ventilator setting: on AC mode; RR 20,VT 350, Fio2-35%, PEEP-5 - neurology on board - Ordered MRI of head and Neck, MRA angio of neck Cardiology Chronic diastolic Congestive heart failure - as per daughter EF of 50% Respiratory Sepsis likely due to below Acute on chronic hypoxic respiratory failure secondary to acute COPD exacerbation/ pneumonia Acute G +/- Bacterial PNA possible atelectasis - continue bronchodilators, - continue Solu-Medrol 40 mg - chest xray: Slight interval advancement of the endotracheal tube such that the tip now projects approximately 3.9 cm above the level of the vani. Remaining lines and tubes unchanged. Stable chronic appearing bilateral interstitial pulmonary markings and mild bibasilar pulmonary airspace disease - IV metronidazole, azithromycin changed to doxycycline, cefepime, micafungin - respiratory culture -showed for filamentous fungi -Chest CT showed lower lobe consolidation, multiple small foci, severe centrilobar Emphysema. GI/Liver Cachexia BMI 15.3 Severe protein malnutrition Hematology Anemia of chronic disease Iron deficiency anemia Renal Electrolytes hyponatremia hypocalcemia hypophosphatemia - replete electrolytes - Monitor electrolytes Lines/tubes/devices Airway: Intubated via ETT on 04/03/25 Vascular access: Central line Rt IJ 04/05 and Rt femoral 04/03 Drips: Fentanyl, midazolam Diet: Vital HP DVT prophylaxis: Lovenox GI prophylaxis: Protonix Goals of car discussed with family for more than 29 minutes : Full code Care plan updated to the family, critical time spent more than 84 minutes excluding procedures and including discussion with family Case discussed with Dr. Briggs, RN Plan discussed with: Other (RN) My Orders My Orders Orders - CRICKET GUAMAN RESIDENT Procedure Category Date Status Time Cleanse Wound With SAMMY 04/06/25 In Process Wound Clean 09:50 Cover Wound With Foam SAMMY 04/06/25 In Process Dressing 13:55 Nutritional PHA 04/06/25 In Process Supplements (Vital 15:15 Amino Acids-Protein PHA 04/07/25 In Process Hydrolysat (Pro-Stat 10:00 Chest Xray 1 View XY 04/07/25 Resulted 04:00 Abg W/ Co-Ox RT 04/07/25 Logged 05:00 Albuterol Medneb PHA 04/07/25 In Process (Ventolin Medneb) 14:00 Ipratropium Medneb PHA 04/07/25 In Process (Atrovent Medneb) 14:00 Iron Panel LAB 04/07/25 In Process 12:20 Dietary Evaluation Review Comments: 1) If patient remains NPO > 7 days, consider EN/TPN to meet at least 75% estimated daily needs 2) If gut is preferred, initiate Vital High Protein @ 40 mL/hr goal rate as tolerated. Flush with 50 mL free H2O Q6H. EN regimen will provide 960 kcals, 84g Pro, and 1003 mL free H2O (including TF flushes) per 24 hrs. Goal rate will meet ~ 95% estimated energy needs and ~ 93% estimated protein needs 3) Advance to cardiac diet when medically feasible, pending ST approval 4) Refer to outpatient RD for weight management 5) Follow-up with cardiology and pulmonology 6) Continue to monitor I&O, labs, and skin integrity Expected Outcomes/Goals: 1) patient to receive nutritional support within 7 days of NPO status 2) labs to improve 3) diet to advance 4) gradual wt gain 5) f/u in 2-3 days Date of Service: Apr 07, 2025 Billing Provider: REBECCA BRIGGS MD Common Visit Codes: 66144-[id number] CARE 30-74 MIN, [id number] CARE-EACH +30MIN CRICKET GUAMAN RESIDENT Apr 07, 2025 13:26 REBECCA BRIGGS MD Apr 08, 2025 13:56
[2025-04-07 13:45] LABS: Iron 33.0 ug/dL (50-170); Total Iron Binding Capacity 174.0 ug/dL (250-425)
[2025-04-07] MEDS: ALBUTEROL SULF 2.5 MG/0.5ML(0.5%) NEB SOLN NEB SCH (14:17)
[2025-04-07] MEDS: IPRATROPIUM BROM 0.5 MG/2.5ML INH SOL NEB SCH (14:18)
[2025-04-08] VITALS (83 sets, daily range): BP systolic 85–136; BP diastolic 45–82; PULSE 72–122; RESP 18–24; TEMP 96.3–99; O2SAT 90–100
[2025-04-08 04:19] LABS: Hematocrit 27.0 % (36.0-46.0); Hemoglobin 8.9 g/dL (12.2-16.2); Mean Corpuscular Hemoglobin 30.8 pg (28.0-32.0); Mean Corpuscular Volume 93.6 fL (80.0-100.0); Nucleated Red Blood Cells % 0.0 %
--- NOTE | 2025-04-08 04:35 | DVH ---
CHEST RADIOGRAPH Indication: on vent Technique: Single frontal view of the chest was obtained COMPARISON: XY CHEST XRAY 1 VIEW on DOS: 04/07/25, XY CHEST XRAY 1 VIEW on DOS: 04/06/25, XY CHEST PO RTABLE on DOS: 04/05/25, XY CHEST XRAY 1 VIEW on DOS: 04/02/25, CXRP on DOS: 02/07/22 FINDINGS: Lines and Tubes: Unchanged. Lungs: Clear Pleura: No effusion. No pneumothorax. Cardiomediastinal contours: Unremarkable Bones: Unremarkable IMPRESSION: 1. No acute cardiopulmonary disease. 2. Lines and tubes unchanged.
[2025-04-08 04:42] LABS: Alanine Aminotransferase 23 U/L (7-40); Alkaline Phosphatase 57 U/L (46-116); Anion Gap 6 (5-15); BUN/Creatinine Ratio 59.1 (10.0-20.0); Chloride 100 mmol/L (98-107); Potassium 4.2 mmol/L (3.5-5.1); Sodium 141 mmol/L (136-145)
[2025-04-08 04:45] LABS: Albumin 2.7 g/dL (3.2-4.8); Bilirubin, Total 0.3 mg/dL (0.2-1.0); Blood Urea Nitrogen 26 mg/dL (9-23); Calcium 8.3 mg/dL (8.7-10.4); Carbon Dioxide 35 mmol/L (20-31); Glucose 140 mg/dL (74-106); Total Protein 4.7 g/dL (5.7-8.2)
--- NOTE | 2025-04-08 05:00 | DVH ---
CHEST RADIOGRAPH Indication: RESP FAILURE. Technique: Single frontal view of the chest was obtained Comparison: XY CHEST XRAY 1 VIEW on DOS: 04/08/25. CT scan of the chest performed on 04/07/2025 FINDINGS: Lines and Tubes: The endotracheal tube terminates 3.0 cm above the vani. Right central venous cath eter with its tip terminating in the superior vena cava. The enteric tube courses below the left erik diaphragm and the tip extends outside the field of view. Lungs: The lungs are hyperinflated consistent with COPD. Bilateral lower lobe opacities including mor e focal opacities in the left lower lobe. Pleura: No effusion. No pneumothorax. Cardiomediastinal contours: Unremarkable Bones: No acute osseous abnormality. IMPRESSION: 1. Support tubes in appropriate position. 2. COPD. 3. Bilateral lower lobe opacities which may reflect atelectasis and a more focal opacity in the left lower lobe which may reflect pneumonia.
[2025-04-08 08:35] LABS: Base Excess 6.9 mmol/L (-2.0-3.0)
--- NOTE | 2025-04-08 08:46 | DVHPN2 ---
Progress Note - Dictate Date Seen: Apr 08, 2025 Medical Necessity Reason Pt with a Central, PICC or Fol: Yes The following are medically ne: Central Line, Chin Catheter Subjective Ms. Cedeno is a 59 years old female with a history of hypotension, dyslipidemia, congestive heart failure, COPD, GERD, anxiety, she was brought to the [facility] on 03/30/2025 with a chief complaint of shortness breath. I have seen and examined the patient, I have discussed with her nurse, she is intubated, awake, looks more sedated/tired Pupil size: In the morning on 04/05/2025: Equal. Early afternoon: right: 3 mm, left: 5 mm. around 6:30PM, right: 2 mm, left: 3 mm, sluggish light reflexes 04/06/2025: Rt: 3, Lt: 3-4. 04/07/25: Rt: 2mm, Lt: 3mm 04/08/2025: Rt: 2mm, Lt: 3mm Versed 4 mg/hour, levo 4 mcg/minutes Blood culture, 04/02/2025: Negative UDS, 04/02/2025: Negative Plasma alcohol, 04/02/2025: <3 Urinalysis, 04/02/2025: WBC: 1, urine leukocyte esterase: Negative ABG, 04/05/2025: Carbon dioxide retention WBC/HB/PLT/MCV, 04/02/2025: 22.5/9.7/236/95.6, 04/03/2025: 71.9/10.8/245/96.3, 04/04/2025: 26.6/9.8/251/95.5, 04/06/2025: 14.5/8.8/278/93.6, 04/08/2025: 15.5/8.9/234/93.6 CMP, 04/04/2025: Unremarkable Chest x-ray, 04/02/2025: Patchy tuhbh-vptjswd-evmb-left bibasilar opacities, favoring infection Chest x-ray 04/05/2025: 1. Endotracheal tube 5.8 cm above the vani 2. Right internal jugular catheter in place at the cavoatrial junction. 3. Enteric tube below the left diaphragm less likely in the stomach. 4. IMPROVING airspace disease right lower lobe. Chest x-ray, 04/08/2025: 1. No acute cardiopulmonary disease. 2. Lines and tubes unchanged. CT head, 04/05/2025:1. No evidence of acute intracranial abnormality. 2. Mild subcortical and periventricular low attenuation, nonspecific but most commonly associated with sequelae of chronic microvascular ischemic changes although other etiologies are not excluded. vital signs Vital Sign Date Time Temp Pulse Resp B/P (MAP) Pulse Ox O2 Delivery O2 Flow Rate FiO2 04/08/25 07:10 73 20 119/69 (86) 96 30 04/08/25 06:00 Mechanical Ventilator+ 04/08/25 04:45 98.1 208.6 Total Intake and Output 04/07/25 04/07/25 04/08/25 15:00 23:00 07:00 Intake Total 214.50 ml 275.25 ml 540.75 ml Output Total 150 ml 200 ml Balance 214.50 ml 125.25 ml 340.75 ml medications Current Medications Medications Dose Ordered Sig/Guy Route Start Time Stop Time Status Last Admin Dose Admin Methylprednisolone Sodium Succinate 40 mg BID IV 04/03/25 10:00 04/07/25 21:16 40 MG Famotidine 20 mg Q12HR IV 04/03/25 10:00 04/07/25 21:16 20 MG Docusate Sodium 100 mg BIDPRN PRN PO 04/02/25 23:15 Acetaminophen 650 mg Q6HP PRN PO 04/02/25 23:15 Nitroglycerin 0.4 mg Q5MINP PRN SL 04/03/25 00:00 Norepinephrine Bitartrate 250 ml @ 3.75 mls/hr Q24H IV 04/03/25 10:00 UNV Midazolam HCl 100 ml @ 1 mls/hr Q24H IV 04/03/25 10:00 04/08/25 03:45 3 MLS/HR Norepinephrine Bitartrate 250 ml @ 3.75 mls/hr Q24H IV 04/03/25 10:00 04/07/25 14:31 7.5 MLS/HR Acetaminophen 650 mg Q6HP PRN CO 04/03/25 20:15 Fentanyl Citrate 250 ml @ 2.5 mls/hr Q24H IV 04/06/25 05:30 04/08/25 04:37 7.5 MLS/HR Fat Emulsion Intravenous 50 ml/ Sodium Chloride 40 meq/Potassium Chloride 20 meq/ Potassium Phosphate 44 meq/ Calcium Gluconate 2.3 meq/Magnesium Sulfate 8 meq/ Multivitamins 10 ml/Chromium/ Copper/Manganese/ Zinc 1 ml/Amino Acids/Dextrose/ Purified Water 1,047.9462 ml @ 44 mls/hr [id number] IV 04/06/25 22:00 04/06/25 22:00 Cancel Cefepime HCl 50 ml @ 12.5 mls/hr Q12HR@0600,1800 IV 04/07/25 06:00 04/08/25 04:37 12.5 MLS/HR Micafungin Sodium 100 mg/Sodium Chloride 100 ml @ 100 mls/hr DAILY IV 04/07/25 10:00 04/07/25 09:46 100 MLS/HR Doxycycline Hyclate 100 ml @ 50 mls/hr Q12H IV 04/06/25 14:45 04/08/25 03:18 50 MLS/HR Enteral Nutritional Formula 1,000 ml 40ML/HR GT 04/06/25 15:15 04/06/25 23:07 1,000 ML Amino Acid Protein 30 ml DAILY PO 04/07/25 10:00 04/07/25 09:47 30 ML Albuterol 2.5 mg Q8H NEB 04/07/25 14:00 04/08/25 07:10 2.5 MG Ipratropium [place] 0.5 mg Q8H NEB 04/07/25 14:00 04/08/25 07:10 0.5 MG objective The patient is well-nourished and well-developed with no distress. The patient is intubated MENTAL STATUS: Subjective CRANIAL NERVES: Pupils are round and reactive, unequal, no associated abnormal vascular dilatation and skin secretion. There are corneal reflexes and doll's eyes phenomenon. No signs of facial weakness. There are gagging or coughing reflexes during oral/airway care SENSATION: Responses to touch MOTOR: Normal tone in the upper and lower extremity. Normal muscle bulk. No fasciculations. Moves the arms a little bit REFLEXES: Deep tendon reflexes are symmetrical. No pathological reflexes. CEREBELLAR/COORDINATION: Deferred GAIT/STATION: deferred laboratory and microbiology Laboratory Tests 04/08/25 04:00 Test 04/08/25 04:00 Range/Units Serum Glucose 140 H 74-106 mg/dL Problem List Altered mental status Hypoxic encephalopathy Metabolic encephalopathy Toxic encephalopathy Acute on chronic respiratory failure Pneumoniae Leukocytosis/sepsis Anisocoria Etiology unclear Cachexia Assessment/Plan Monitoring Supportive treatment Follow-up lab Blood culture MRI head, MRA neck when she is stable enough Stabilize vitals Respiratory support/vent management IV antibiotics Oxygen Midodrine Improving Consider CPAP trial/extubation More recommendation per clinical course This medical document was created using an electronic medical record system with [employer] dictation system. Although this document has been carefully reviewed, there may still be some phonetic and typographical errors. These areas are purely typographical due to imperfections of the software programs, and do not reflect any compromise in the patient's medical care. Prognosis guarded Dietary Evaluation Review Comments: 1) If patient remains NPO > 7 days, consider EN/TPN to meet at least 75% estimated daily needs 2) If gut is preferred, initiate Vital High Protein @ 40 mL/hr goal rate as tolerated. Flush with 50 mL free H2O Q6H. EN regimen will provide 960 kcals, 84g Pro, and 1003 mL free H2O (including TF flushes) per 24 hrs. Goal rate will meet ~ 95% estimated energy needs and ~ 93% estimated protein needs 3) Advance to cardiac diet when medically feasible, pending ST approval 4) Refer to outpatient RD for weight management 5) Follow-up with cardiology and pulmonology 6) Continue to monitor I&O, labs, and skin integrity Expected Outcomes/Goals: 1) patient to receive nutritional support within 7 days of NPO status 2) labs to improve 3) diet to advance 4) gradual wt gain 5) f/u in 2-3 days Plan discussed with: Other Critical Care Time(min): 30 RAMAN LAWTON MD Apr 08, 2025 08:46
[2025-04-08] MEDS: NOREPINEPHRINE 8 MG/250ML KIT 250 ML IV SCH (09:00)
--- NOTE | 2025-04-08 09:53 | DVHPNRES ---
Progress Note Date Seen: Apr 08, 2025 Resident Creating Document: CRICKET GUAMAN RESIDENT Medical Necessity Reason Pt with a Central, PICC or Fol: Yes The following are medically ne: Central Line, Chin Catheter Subjective Review of Systems Patient is a 59 year old female with past medical history of CHF, Chronic obstructive pulmonary disease, GERD, hyperlipidemia who presented to hospital with chief complaints of shortness of breath. As per daughter patient had increased work of breathing, uses home oxygen 2 L, which was increased to 6 L at home for which saturation improved to 94%. Patient in the ER became altered and was intubated on 04/03/25. as per daughter echocardiogram showed 50% in [facility]. x-ray showed Stable chronic appearing bilateral interstitial pulmonary markings and mild bibasilar pulmonary airspace disease. past surgical history: tonsillectomy family history: reviewed, noncontributory Social history: per daughter patient has smoked since she was 15 years old and nicotine vape, used methamphetamine Patient seen and examined at bedside. intubated, mechanically ventilated, on AC mode; RR 20,VT 350, Fio2-35%, PEEP-5. patient has multiple skin tears, is able to open her eyes but is not able to communicate. pupils are anisocoric. She is on Levo 8. no overnight events were reported, antibiotics changed to doxycycline, cefepime, micafungin. MRI pending. Chest CT showed lower lobe consolidation, multiple small foci, severe centrilobar Emphysema. KUB done, and Miralax given. CPAP trial tommorow. Objective vital signs Vital Sign Date Time Temp Pulse Resp B/P (MAP) Pulse Ox O2 Delivery O2 Flow Rate FiO2 04/08/25 08:00 30 04/08/25 07:10 73 20 119/69 (86) 96 04/08/25 06:00 Mechanical Ventilator+ 04/08/25 04:45 98.1 208.6 Total Intake and Output 04/07/25 04/07/25 04/08/25 15:00 23:00 07:00 Intake Total 214.50 ml 275.25 ml 540.75 ml Output Total 150 ml 200 ml Balance 214.50 ml 125.25 ml 340.75 ml medications Current Medications Medications Dose Ordered Sig/Guy Route Start Time Stop Time Status Last Admin Dose Admin Methylprednisolone Sodium Succinate 40 mg BID IV 04/03/25 10:00 04/08/25 09:07 40 MG Famotidine 20 mg Q12HR IV 04/03/25 10:00 04/08/25 09:07 20 MG Docusate Sodium 100 mg BIDPRN PRN PO 04/02/25 23:15 Acetaminophen 650 mg Q6HP PRN PO 04/02/25 23:15 Nitroglycerin 0.4 mg Q5MINP PRN SL 04/03/25 00:00 Norepinephrine Bitartrate 250 ml @ 3.75 mls/hr Q24H IV 04/03/25 10:00 UNV Midazolam HCl 100 ml @ 1 mls/hr Q24H IV 04/03/25 10:00 04/08/25 03:45 3 MLS/HR Acetaminophen 650 mg Q6HP PRN ID 04/03/25 20:15 Fentanyl Citrate 250 ml @ 2.5 mls/hr Q24H IV 04/06/25 05:30 04/08/25 04:37 7.5 MLS/HR Fat Emulsion Intravenous 50 ml/ Sodium Chloride 40 meq/Potassium Chloride 20 meq/ Potassium Phosphate 44 meq/ Calcium Gluconate 2.3 meq/Magnesium Sulfate 8 meq/ Multivitamins 10 ml/Chromium/ Copper/Manganese/ Zinc 1 ml/Amino Acids/Dextrose/ Purified Water 1,047.9462 ml @ 44 mls/hr [id number] IV 04/06/25 22:00 04/06/25 22:00 Cancel Cefepime HCl 50 ml @ 12.5 mls/hr Q12HR@0600,1800 IV 04/07/25 06:00 04/08/25 04:37 12.5 MLS/HR Micafungin Sodium 100 mg/Sodium Chloride 100 ml @ 100 mls/hr DAILY IV 04/07/25 10:00 04/08/25 09:07 100 MLS/HR Doxycycline Hyclate 100 ml @ 50 mls/hr Q12H IV 04/06/25 14:45 04/08/25 03:18 50 MLS/HR Enteral Nutritional Formula 1,000 ml 40ML/HR GT 04/06/25 15:15 04/06/25 23:07 1,000 ML Amino Acid Protein 30 ml DAILY PO 04/07/25 10:00 04/08/25 09:07 30 ML Albuterol 2.5 mg Q8H NEB 04/07/25 14:00 04/08/25 07:10 2.5 MG Ipratropium [place] 0.5 mg Q8H NEB 04/07/25 14:00 04/08/25 07:10 0.5 MG Norepinephrine Bitartrate 250 ml @ 3.75 mls/hr Q24H IV 04/08/25 09:00 Examination Patient lying in bed General: Patient is intubated, sedated, is able to open her eyes HEENT: Normocephalic, atraumatic, moist mucous membranes Respiratory/pulmonary: diminished breath sounds bilaterally. Cardiovascular: Normal heart sounds S1 and S2 with no associated murmurs Abdomen: Abdomen nondistended, there is no pain to palpation in any of the abdominal quadrants, no palpable masses. Extremities: There is no peripheral edema present at the lower extremities. Peripheral Pulses: 3+ Radial (R). 3+ Radial (L). 3+ Dorsalis pedis (R). 3+ Dorsalis pedis(L) Skin: Multiple skin tears, no sacral wound present, Neurological: pupils are sluggish and anisocoric, left 3 mm right 2 mm laboratory and microbiology Laboratory Tests 04/08/25 04:00 Test 04/08/25 04:00 Range/Units Serum Glucose 140 H 74-106 mg/dL Microbiology Date/Time Source Procedure Growth Status 04/05/25 08:00 Nose MRSA Screen - Final Complete 04/03/25 10:00 Sputum Endotracheal Wash Gram Stain - Final Resulted 04/03/25 10:00 Sputum Endotracheal Wash Respiratory Culture - Preliminary Resulted 04/02/25 20:04 Blood Blood Culture - Final NO GROWTH AFTER 5 DAYS OF INCUBATION. Complete Problem List/Assessment/Plan Problem List/Assessment/Plan Neurology Acute metabolic/hypoxic encephalopathy likely due to COPD exacerbation - Mechanically ventilated, sedated: RASS score -3 - ventilator setting: on AC mode; RR 20,VT 350, Fio2-35%, PEEP-5 - neurology on board - Ordered MRI of head and Neck, MRA angio of neck Cardiology Chronic diastolic Congestive heart failure - as per daughter EF of 50% Respiratory Sepsis likely due to below Acute on chronic hypoxic respiratory failure secondary to acute COPD exacerbation/ pneumonia Acute G +/- Bacterial PNA possible atelectasis - continue bronchodilators, - continue Solu-Medrol 40 mg - chest xray: Slight interval advancement of the endotracheal tube such that the tip now projects approximately 3.9 cm above the level of the vani. Remaining lines and tubes unchanged. Stable chronic appearing bilateral interstitial pulmonary markings and mild bibasilar pulmonary airspace disease - IV metronidazole, azithromycin changed to doxycycline, cefepime, micafungin - respiratory culture -showed for filamentous fungi -Chest CT showed lower lobe consolidation, multiple small foci, severe centrilobar Emphysema. GI/Liver Cachexia BMI 15.3 Severe protein malnutrition Slow transit constipation - Miralax Hematology Anemia of chronic disease Iron deficiency anemia Renal Electrolytes hyponatremia hypocalcemia hypophosphatemia - replete electrolytes - Monitor electrolytes Lines/tubes/devices Airway: Intubated via ETT on 04/03/25 Vascular access: Central line Rt IJ 04/05 and Rt femoral 04/03 Drips: Fentanyl, midazolam Diet: Vital HP DVT prophylaxis: Lovenox GI prophylaxis: Protonix Great discussion taken place with Daughter for 37 mins about patients condition and poor prognosis Goals of car discussed with family for more than 29 minutes : Full code Care plan updated to the family, critical time spent more than 64 minutes excluding procedures Case discussed with Dr. Briggs, RN Plan discussed with: Daughter My Orders My Orders Orders - CRICKET GUAMAN RESIDENT Procedure Category Date Status Time Chest Xray 1 View XY 04/08/25 Resulted 04:00 Abg W/ Co-Ox RT 04/08/25 Logged 05:36 Kub Abdomen Single XY 04/08/25 Taken View 08:47 Norepinephrine 8 PHA 04/08/25 In Process Mg/250ml Kit 09:00 Dietary Evaluation Review Comments: 1) If patient remains NPO > 7 days, consider EN/TPN to meet at least 75% estimated daily needs 2) If gut is preferred, initiate Vital High Protein @ 40 mL/hr goal rate as tolerated. Flush with 50 mL free H2O Q6H. EN regimen will provide 960 kcals, 84g Pro, and 1003 mL free H2O (including TF flushes) per 24 hrs. Goal rate will meet ~ 95% estimated energy needs and ~ 93% estimated protein needs 3) Advance to cardiac diet when medically feasible, pending ST approval 4) Refer to outpatient RD for weight management 5) Follow-up with cardiology and pulmonology 6) Continue to monitor I&O, labs, and skin integrity Expected Outcomes/Goals: 1) patient to receive nutritional support within 7 days of NPO status 2) labs to improve 3) diet to advance 4) gradual wt gain 5) f/u in 2-3 days Date of Service: Apr 09, 2025 Billing Provider: REBECCA BRIGGS MD Common Visit Codes: 28201-GDXOCXYN CARE 30-74 MIN CRICKET GUAMAN RESIDENT Apr 08, 2025 09:53 REBECCA BRIGGS MD Apr 09, 2025 12:44
--- NOTE | 2025-04-08 09:56 | DVH ---
Date: 04/08/2025 08:57 AM Examination: XY KUB ABDOMEN SINGLE VIEW History: Possible Stool Impaction Comparison: XY PELVIS AP on DOS: 03/03/23 TECHNIQUE: Frontal views of the abdomen was obtained. FINDINGS: Nonspecific gas-filled loops of colon. Enteric tube projects over the expected region of the stomach which appears distended. Catheter projects over the expected region of the right lower quadrant. Fole y catheter projects over the mid pelvis. The lung bases are unremarkable. No acute osseous abnormality identified. IMPRESSION: Nonspecific gas-filled loops of colon. Enteric tube projects over the expected region of the stomach which appears distended.
[2025-04-08] MEDS: POLYETHYLENE GLYCOL 17 GM PWDR PO ONE (14:35)
--- NOTE | 2025-04-08 22:12 | DVHPN2 ---
Consult Progress Note Objective vital signs Vital Sign Date Time Temp Pulse Resp B/P (MAP) Pulse Ox O2 Delivery O2 Flow Rate FiO2 04/08/25 21:30 95 20 111/59 96 35 04/08/25 18:45 97.2 207.0 04/08/25 18:00 Mechanical Ventilator+ Total Intake and Output 04/07/25 04/07/25 04/08/25 15:00 23:00 07:00 Intake Total 214.50 ml 275.25 ml 540.75 ml Output Total 150 ml 200 ml Balance 214.50 ml 125.25 ml 340.75 ml medications Current Medications Medications Dose Ordered Sig/Guy Route Start Time Stop Time Status Last Admin Dose Admin Methylprednisolone Sodium Succinate 40 mg BID IV 04/03/25 10:00 04/08/25 09:07 40 MG Famotidine 20 mg Q12HR IV 04/03/25 10:00 04/08/25 09:07 20 MG Docusate Sodium 100 mg BIDPRN PRN PO 04/02/25 23:15 Acetaminophen 650 mg Q6HP PRN PO 04/02/25 23:15 Nitroglycerin 0.4 mg Q5MINP PRN SL 04/03/25 00:00 Norepinephrine Bitartrate 250 ml @ 3.75 mls/hr Q24H IV 04/03/25 10:00 UNV Midazolam HCl 100 ml @ 1 mls/hr Q24H IV 04/03/25 10:00 04/08/25 03:45 3 MLS/HR Acetaminophen 650 mg Q6HP PRN TN 04/03/25 20:15 Fentanyl Citrate 250 ml @ 2.5 mls/hr Q24H IV 04/06/25 05:30 04/08/25 04:37 7.5 MLS/HR Fat Emulsion Intravenous 50 ml/ Sodium Chloride 40 meq/Potassium Chloride 20 meq/ Potassium Phosphate 44 meq/ Calcium Gluconate 2.3 meq/Magnesium Sulfate 8 meq/ Multivitamins 10 ml/Chromium/ Copper/Manganese/ Zinc 1 ml/Amino Acids/Dextrose/ Purified Water 1,047.9462 ml @ 44 mls/hr [id number] IV 04/06/25 22:00 04/06/25 22:00 Cancel Cefepime HCl 50 ml @ 12.5 mls/hr Q12HR@0600,1800 IV 04/07/25 06:00 04/08/25 17:22 12.5 MLS/HR Micafungin Sodium 100 mg/Sodium Chloride 100 ml @ 100 mls/hr DAILY IV 04/07/25 10:00 04/08/25 09:07 100 MLS/HR Doxycycline Hyclate 100 ml @ 50 mls/hr Q12H IV 04/06/25 14:45 04/08/25 14:36 50 MLS/HR Enteral Nutritional Formula 1,000 ml 40ML/HR GT 04/06/25 15:15 04/08/25 16:58 1,000 ML Amino Acid Protein 30 ml DAILY PO 04/07/25 10:00 04/08/25 09:07 30 ML Albuterol 2.5 mg Q8H NEB 04/07/25 14:00 04/08/25 13:55 2.5 MG Ipratropium [place] 0.5 mg Q8H NEB 04/07/25 14:00 04/08/25 13:55 0.5 MG Norepinephrine Bitartrate 250 ml @ 3.75 mls/hr Q24H IV 04/08/25 09:00 04/08/25 17:33 7.5 MLS/HR Polyethylene Glycol 17 gm DAILY PO 04/09/25 10:00 laboratory and microbiology Laboratory Tests 04/08/25 04:00 Test 04/08/25 04:00 Range/Units Serum Glucose 140 H 74-106 mg/dL Problem List/Assessment/Plan Problem List/Assessment/Plan Today's Encounter Date: 04/06/2025 Patient Name: Pao Provider: Gordon Coley ASSESSMENT AND PLAN: ID Problem List: -Community-acquired pneumonia (CXR: patchy right > left opacities) -Septic shock (ICU transfer in the setting of pneumonia; BP 94/54 noted) -Acute on chronic respiratory failure with hypercapnia (pH 7.35, pCO2 83.1) requiring mechanical ventilation -Suspected COPD exacerbation related to pneumonia -Prolonged QTc (503 ms) fluoroquinolones avoided -Penicillin allergy (unknown reaction, since 2021) -Leukocytosis (WBC 22.5 K/L) -Anemia (Hgb 9.7 g/dL) -Hyponatremia (Na 133 mmol/L) -History of CHF, GERD, anxiety, hypertension, hyperlipidemia; chronic hypotension noted Assessment This is a 59 y.o. female with a past medical history of CHF, anxiety, COPD, GERD, hypertension, hyperlipidemia, and chronic hypotension who presents with shortness of breath and hypoxemia (desaturation to 70% on 6 L NC). ED CXR showed patchy right greater than left opacities favoring infection; admitted for pneumonia. Transferred to ICU for septic shock in the setting of pneumonia. Viral testing (influenza A/B, COVID-19) negative. UA without growth. Blood cultures no growth to date (04/05). ABG with hypercapnia (pH 7.35, pCO2 83.1). BNP 38.81. EKG with QTc 503 ms. Preliminary sputum culture with rare filamentous fungi (awaiting further results). The clinical picture is consistent with pneumonia with concurrent COPD exacerbation and hypercapnic respiratory failure requiring mechanical ventilation. 04/05: CXR with improved pneumonia, persistent fevers, improved levophed 04/06: prolonged qtc , fungi filamentous on cxr Plan: -Antimicrobials: -stop azithromycin and flagyl, swich to cefepime and doxycycline -start micafungin - test for cocci and aspergillus - agree with chest CT -Avoid fluoroquinolones due to prolonged QTc. -Follow up sputum culture results; adjust therapy per susceptibilities. -Follow up blood cultures; currently no growth to date (04/05). -Respiratory: -Mechanical ventilation management per route salesperson team; current settings documented below. -Wean as tolerated to high-flow nasal cannula when appropriate. -COPD therapies per pulmonology: bronchodilators, systemic steroids, mucolytics. -Monitoring: -Monitor temperature curve; if persistent fevers, reassess antimicrobial coverage. -Repeat chest X-ray daily. -Maintain MAP > 65 mmHg; titrate vasoactive support as needed. -Monitor QTc; continue to avoid QT-prolonging agents where feasible. 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 -Diagnostics: -Recommend sputum culture (pending/follow-up). -Continue to monitor labs (CBC, BMP, lactate) and ABGs as clinically indicated. Authorized and Performed by: Gordon Coley Total critical care time: Approximately 76 minutes Due to a high probability of clinically significant, life threatening deterioration, the patient required my highest level of preparedness to intervene emergently and I personally spent this critical care time directly and personally managing the patient. This critical care time included obtaining a history; examining the patient; pulse oximetry; ordering and review of studies; arranging urgent treatment with development of a management plan; evaluation of patient's response to treatment; frequent reassessment; and, discussions with other providers. This critical care time was performed to assess and manage the high probability of imminent, life-threatening deterioration that could result in multi-organ failure. It was exclusive of separately billable procedures and treating other patients and teaching time. Isolation Precautions: Not provided in transcript. \ Physical Exam: General: NAD Neck: Supple. No masses. HEENT: PERRL. Normal lids and conjunctiva. Moist mucous membranes. Oropharynx without lesions, exudates or excessive erythema. Normal appearance of the external aspects of the nose and ears. Heart: Regular rhythm, normal rate. No murmur. No lower extremity edema. Lungs: Normal respiratory effort. Clear to auscultation bilaterally. Wheezes present. Patient is mechanically ventilated. Abdomen: Soft. Non-tender. Non-distended. No masses or abdominal hernia. Msk: No digital cyanosis. Normal strength and tone in all 4 limbs Skin: Warm and dry, no rashes. Neuro: Alert. No facial droop or slurred speech. Extra-ocular movements intact. Sensation intact to soft touch in all 4 limbs. Psych: Appropriate mood. Full affect. Oriented to person, place, time, and situation. Dietary Evaluation Review Comments: 1) If patient remains NPO > 7 days, consider EN/TPN to meet at least 75% estimated daily needs 2) If gut is preferred, initiate Vital High Protein @ 40 mL/hr goal rate as tolerated. Flush with 50 mL free H2O Q6H. EN regimen will provide 960 kcals, 84g Pro, and 1003 mL free H2O (including TF flushes) per 24 hrs. Goal rate will meet ~ 95% estimated energy needs and ~ 93% estimated protein needs 3) Advance to cardiac diet when medically feasible, pending ST approval 4) Refer to outpatient RD for weight management 5) Follow-up with cardiology and pulmonology 6) Continue to monitor I&O, labs, and skin integrity Expected Outcomes/Goals: 1) patient to receive nutritional support within 7 days of NPO status 2) labs to improve 3) diet to advance 4) gradual wt gain 5) f/u in 2-3 days GORDON COLEY MD Apr 08, 2025 22:11
[2025-04-09] VITALS (85 sets, daily range): BP systolic 82–154; BP diastolic 24–112; PULSE 81–134; RESP 19–28; TEMP 97–98.8; O2SAT 90–100
[2025-04-09 03:33] LABS: Hematocrit 25.7 % (36.0-46.0); Hemoglobin 8.5 g/dL (12.2-16.2); Mean Corpuscular Hemoglobin 31.1 pg (28.0-32.0); Mean Corpuscular Volume 93.9 fL (80.0-100.0); Nucleated Red Blood Cells % 0.0 %
[2025-04-09 03:50] LABS: Alanine Aminotransferase 23 U/L (7-40); Alkaline Phosphatase 57 U/L (46-116); Anion Gap 2 (5-15); BUN/Creatinine Ratio 70.7 (10.0-20.0); Chloride 104 mmol/L (98-107); Potassium 4.4 mmol/L (3.5-5.1); Sodium 141 mmol/L (136-145)
[2025-04-09 03:58] LABS: Albumin 2.8 g/dL (3.2-4.8); Bilirubin, Total 0.2 mg/dL (0.2-1.0); Blood Urea Nitrogen 29 mg/dL (9-23); Calcium 8.4 mg/dL (8.7-10.4); Carbon Dioxide 35 mmol/L (20-31); Glucose 136 mg/dL (74-106); Total Protein 4.7 g/dL (5.7-8.2)
--- NOTE | 2025-04-09 04:59 | DVH ---
CHEST RADIOGRAPH Indication: on vent Technique: 1 view Comparison: XY CHEST XRAY 1 VIEW on DOS: 04/08/25, XY CHEST PORTABLE on DOS: 04/07/25, XY CHEST XRAY 1 VIEW on DOS: 04/07/25, XY CHEST XRAY 1 VIEW on DOS: 04/06/25, XY CHEST PORTABLE on DOS: 04/05/25 FINDINGS: Lines and Tubes: Unchanged. Lungs/Pleura: Unchanged. Cardiomediastinum: Unchanged. Other: Unchanged osseous structures. IMPRESSION: No significant change from the previous study. Stable support devices. Chronic appearing pulmonary o pacities.
[2025-04-09] MEDS: DEXMEDETOMIDINE HCL IN D5W 100 ML IV SCH (06:09)
[2025-04-09 07:14] LABS: Base Excess 6.2 mmol/L (-2.0-3.0)
[2025-04-09 09:55] LABS: Base Excess 12.2 mmol/L (-2.0-3.0)
[2025-04-09] MEDS: POLYETHYLENE GLYCOL 17 GM PWDR PO SCH (10:24)
[2025-04-09] MEDS: methylPREDNISolone SOD SUCC 40 MG/ML VL IV SCH (14:00)
[2025-04-09 16:04] LABS: INR 1.03 (0.9-1.15); Partial Thromboplastin Time 28.0 SEC (24.5-34.5); Prothrombin Time 10.9 sec (9.3-11.8)
[2025-04-09] MEDS: LIDOCAINE 1% (LOCAL ANESTH.) PF 5ml SDV ID ONE (18:30)
[2025-04-09] MEDS: SODIUM CHLOR 0.9% PF (SALINE LOCK) 10ML VIAL/SYR IV SCH (22:04)
[2025-04-10] VITALS (101 sets, daily range): BP systolic 76–163; BP diastolic 48–103; PULSE 72–141; RESP 14–27; TEMP 97–99.3; O2SAT 92–100
[2025-04-10 04:20] LABS: Hematocrit 25.5 % (36.0-46.0); Hemoglobin 8.6 g/dL (12.2-16.2); Mean Corpuscular Hemoglobin 31.3 pg (28.0-32.0); Mean Corpuscular Volume 93.2 fL (80.0-100.0); Nucleated Red Blood Cells % 0.0 %
[2025-04-10 04:35] LABS: Alanine Aminotransferase 27 U/L (7-40); Alkaline Phosphatase 54 U/L (46-116); Anion Gap 4 (5-15); BUN/Creatinine Ratio 75.8 (10.0-20.0); Chloride 100 mmol/L (98-107); Potassium 4.3 mmol/L (3.5-5.1); Sodium 139 mmol/L (136-145)
[2025-04-10 04:36] LABS: Bilirubin, Total 0.4 mg/dL (0.2-1.0)
[2025-04-10 04:40] LABS: Albumin 2.7 g/dL (3.2-4.8); Blood Urea Nitrogen 25 mg/dL (9-23); Calcium 8.4 mg/dL (8.7-10.4); Carbon Dioxide 35 mmol/L (20-31); Glucose 108 mg/dL (74-106); Total Protein 4.7 g/dL (5.7-8.2)
--- NOTE | 2025-04-10 05:10 | DVH ---
Exam: US US GUIDED VASCULAR ACCESS Clinical History: PICC LINE PLACEMENT Comparison: US ECHO 2D MODE CARDIAC DOP on DOS: 04/01/25, MRI BRAIN HEAD WO CONTRAST on DOS: 04/01/25 , CT CHST AB PEL WO CON-NO IV/ORAL on DOS: 03/31/25, CT CERVICAL WITHOUT CONTRAST on DOS: 03/31/25, C T HEAD WITHOUT CONTRAST on DOS: 03/31/25 Findings: Targeted sonographic evaluation of the arm vein was obtained utilizing grayscale and color Doppler im aging. IMPRESSION: Sonographic assistance for peripherally inserted central line placement. Please refer to procedural r eport for detailed findings.
--- NOTE | 2025-04-10 05:12 | DVH ---
CHEST RADIOGRAPH Indication: on vent Technique: Single frontal view of the chest was obtained. Comparison: XY CHEST XRAY 1 VIEW on DOS: 04/09/25 FINDINGS: Lines and Tubes: The endotracheal tube terminates 3.6 cm above the vani. The enteric tube courses b elow the left hemidiaphragm and the tip extends outside the field of view. There is a left PICC line with its tip terminating in the superior vena cava. Lungs: The lungs are hyperinflated. Improved aeration in the lungs. Pleura: No effusion. No pneumothorax. Cardiomediastinal contours: Unremarkable Bones: No acute osseous abnormality. IMPRESSION: 1. Stable position of the support lines and tubes. 2. Improved aeration in the lungs.
[2025-04-10 07:07] LABS: Base Excess 8.4 mmol/L (-2.0-3.0)
[2025-04-10 11:04] LABS: Base Excess 8.5 mmol/L (-2.0-3.0)
--- NOTE | 2025-04-10 11:06 | DVHPN2 ---
Progress Note - Dictate Date Seen: Apr 09, 2025 Medical Necessity Reason Pt with a Central, PICC or Fol: Yes The following are medically ne: Central Line, Chin Catheter Subjective Ms. Cedeno is a 59 years old female with a history of hypotension, dyslipidemia, congestive heart failure, COPD, GERD, anxiety, she was brought to the [facility] on 03/30/2025 with a chief complaint of shortness breath. I have seen and examined the patient, I have discussed with her nurse, she is intubated, awake, she follows verbal commands The pupils are equal today Pupil size: In the morning on 04/05/2025: Equal. Early afternoon: right: 3 mm, left: 5 mm. around 6:30PM, right: 2 mm, left: 3 mm, sluggish light reflexes 04/06/2025: Rt: 3, Lt: 3-4. 04/07/25: Rt: 2mm, Lt: 3mm 04/08/2025: Rt: 2mm, Lt: 3mm 04/08/2025: Rt: 2mm, Lt: 2mm Versed 4 mg/hour, levo 4 mcg/minutes Blood culture, 04/02/2025: Negative UDS, 04/02/2025: Negative Plasma alcohol, 04/02/2025: <3 Urinalysis, 04/02/2025: WBC: 1, urine leukocyte esterase: Negative ABG, 04/05/2025: Carbon dioxide retention WBC/HB/PLT/MCV, 04/02/2025: 22.5/9.7/236/95.6, 04/03/2025: 71.9/10.8/245/96.3, 04/04/2025: 26.6/9.8/251/95.5, 04/06/2025: 14.5/8.8/278/93.6, 04/08/2025: 15.5/8.9/234/93.6 CMP, 04/04/2025: Unremarkable Chest x-ray, 04/02/2025: Patchy [id number]-[id number]-skfr-left bibasilar opacities, favoring infection Chest x-ray 04/05/2025: 1. Endotracheal tube 5.8 cm above the vani 2. Right internal jugular catheter in place at the cavoatrial junction. 3. Enteric tube below the left diaphragm less likely in the stomach. 4. IMPROVING airspace disease right lower lobe. Chest x-ray, 04/08/2025: 1. No acute cardiopulmonary disease. 2. Lines and tubes unchanged. CT head, 04/05/2025:1. No evidence of acute intracranial abnormality. 2. Mild subcortical and periventricular low attenuation, nonspecific but most commonly associated with sequelae of chronic microvascular ischemic changes although other etiologies are not excluded. vital signs Vital Sign Date Time Temp Pulse Resp B/P (MAP) Pulse Ox O2 Delivery O2 Flow Rate FiO2 04/09/25 08:00 126 04/09/25 08:00 20 95 Mechanical Ventilator+ 30 30 04/09/25 06:20 128/66 (86) 04/08/25 18:45 97.2 207.0 Total Intake and Output 04/08/25 04/08/25 04/09/25 15:00 23:00 07:00 Intake Total 312.0 ml 224.5 ml 296.5 ml Output Total 350 ml 450 ml Balance 312.0 ml -125.5 ml -153.5 ml medications Current Medications Medications Dose Ordered Sig/Guy Route Start Time Stop Time Status Last Admin Dose Admin Methylprednisolone Sodium Succinate 40 mg BID IV 04/03/25 10:00 04/08/25 22:24 40 MG Famotidine 20 mg Q12HR IV 04/03/25 10:00 04/08/25 22:24 20 MG Docusate Sodium 100 mg BIDPRN PRN PO 04/02/25 23:15 Acetaminophen 650 mg Q6HP PRN PO 04/02/25 23:15 Nitroglycerin 0.4 mg Q5MINP PRN SL 04/03/25 00:00 Norepinephrine Bitartrate 250 ml @ 3.75 mls/hr Q24H IV 04/03/25 10:00 UNV Midazolam HCl 100 ml @ 1 mls/hr Q24H IV 04/03/25 10:00 04/08/25 03:45 3 MLS/HR Acetaminophen 650 mg Q6HP PRN [place] 04/03/25 20:15 Fentanyl Citrate 250 ml @ 2.5 mls/hr Q24H IV 04/06/25 05:30 04/08/25 04:37 7.5 MLS/HR Fat Emulsion Intravenous 50 ml/ Sodium Chloride 40 meq/Potassium Chloride 20 meq/ Potassium Phosphate 44 meq/ Calcium Gluconate 2.3 meq/Magnesium Sulfate 8 meq/ Multivitamins 10 ml/Chromium/ Copper/Manganese/ Zinc 1 ml/Amino Acids/Dextrose/ Purified Water 1,047.9462 ml @ 44 mls/hr [id number] IV 04/06/25 22:00 04/06/25 22:00 Cancel Cefepime HCl 50 ml @ 12.5 mls/hr Q12HR@0600,1800 IV 04/07/25 06:00 04/09/25 06:09 12.5 MLS/HR Micafungin Sodium 100 mg/Sodium Chloride 100 ml @ 100 mls/hr DAILY IV 04/07/25 10:00 04/08/25 09:07 100 MLS/HR Doxycycline Hyclate 100 ml @ 50 mls/hr Q12H IV 04/06/25 14:45 04/09/25 02:45 50 MLS/HR Enteral Nutritional Formula 1,000 ml 40ML/HR GT 04/06/25 15:15 04/08/25 16:58 1,000 ML Amino Acid Protein 30 ml DAILY PO 04/07/25 10:00 04/08/25 09:07 30 ML Albuterol 2.5 mg Q8H NEB 04/07/25 14:00 04/09/25 06:20 2.5 MG Ipratropium [place] 0.5 mg Q8H NEB 04/07/25 14:00 04/09/25 06:20 0.5 MG Norepinephrine Bitartrate 250 ml @ 3.75 mls/hr Q24H IV 04/08/25 09:00 04/08/25 17:33 7.5 MLS/HR Polyethylene Glycol 17 gm DAILY PO 04/09/25 10:00 objective The patient is well-nourished and well-developed with no distress. The patient is intubated MENTAL STATUS: Subjective CRANIAL NERVES: Pupils are round and reactive, no associated abnormal vascular dilatation and skin secretion. There are corneal reflexes and doll's eyes phenomenon. No signs of facial weakness. There are gagging or coughing reflexes during oral/airway care SENSATION: Responses to touch MOTOR: Normal tone in the upper and lower extremity. Normal muscle bulk. No fasciculations. Moves the arms a little bit REFLEXES: Deep tendon reflexes are symmetrical. No pathological reflexes. CEREBELLAR/COORDINATION: Deferred GAIT/STATION: deferred laboratory and microbiology Laboratory Tests 04/09/25 03:00 Test 04/09/25 03:00 Range/Units Serum Glucose 136 H 74-106 mg/dL Problem List Altered mental status Hypoxic encephalopathy Metabolic encephalopathy Toxic encephalopathy Acute on chronic respiratory failure Pneumoniae Leukocytosis/sepsis Anisocoria Etiology unclear Cachexia Assessment/Plan Monitoring Supportive treatment Follow-up lab Blood culture D/C MRI head, MRA neck Stabilize vitals Respiratory support/vent management IV antibiotics Oxygen Midodrine Improving Consider CPAP trial/extubation More recommendation per clinical course This medical document was created using an electronic medical record system with [employer] dictation system. Although this document has been carefully reviewed, there may still be some phonetic and typographical errors. These areas are purely typographical due to imperfections of the software programs, and do not reflect any compromise in the patient's medical care. Prognosis Guarded Dietary Evaluation Review Comments: 1) If patient remains NPO > 7 days, consider EN/TPN to meet at least 75% estimated daily needs 2) If gut is preferred, initiate Vital High Protein @ 40 mL/hr goal rate as tolerated. Flush with 50 mL free H2O Q6H. EN regimen will provide 960 kcals, 84g Pro, and 1003 mL free H2O (including TF flushes) per 24 hrs. Goal rate will meet ~ 95% estimated energy needs and ~ 93% estimated protein needs 3) Advance to cardiac diet when medically feasible, pending ST approval 4) Refer to outpatient RD for weight management 5) Follow-up with cardiology and pulmonology 6) Continue to monitor I&O, labs, and skin integrity Expected Outcomes/Goals: 1) patient to receive nutritional support within 7 days of NPO status 2) labs to improve 3) diet to advance 4) gradual wt gain 5) f/u in 2-3 days Plan discussed with: Other Critical Care Time(min): 30 RAMAN LAWTON MD Apr 09, 2025 10:09
--- NOTE | 2025-04-10 11:18 | DVHPNRES ---
Progress Note Date Seen: Apr 09, 2025 Resident Creating Document: CRICKET GUAMAN RESIDENT Medical Necessity Reason Pt with a Central, PICC or Fol: Yes The following are medically ne: Central Line, Chin Catheter Subjective Review of Systems Patient is a 59 year old female with past medical history of CHF, Chronic obstructive pulmonary disease, GERD, hyperlipidemia who presented to hospital with chief complaints of shortness of breath. As per daughter patient had increased work of breathing, uses home oxygen 2 L, which was increased to 6 L at home for which saturation improved to 94%. Patient in the ER became altered and was intubated on 04/03/25. as per daughter echocardiogram showed 50% in [facility]. x-ray showed Stable chronic appearing bilateral interstitial pulmonary markings and mild bibasilar pulmonary airspace disease. past surgical history: tonsillectomy family history: reviewed, noncontributory Social history: per daughter patient has smoked since she was 15 years old and nicotine vape, used methamphetamine Patient seen and examined at bedside. intubated, mechanically ventilated, on AC mode; RR 20,VT 350, Fio2-35%, PEEP-5. patient has multiple skin tears, is able to open her eyes but is not able to communicate. pupils are anisocoric. She is on Levo 8. no overnight events were reported, antibiotics changed to doxycycline, cefepime, micafungin. MRI pending. Chest CT showed lower lobe consolidation, multiple small foci, severe centrilobar Emphysema. Patient had a bowel movement today. Today CPAP trial has failed, we will try again tomorrow. Objective vital signs Vital Sign Date Time Temp Pulse Resp B/P (MAP) Pulse Ox O2 Delivery O2 Flow Rate FiO2 04/09/25 16:00 98.1 104 21 110/69 (83) 95 208.6 04/09/25 14:09 30 04/09/25 14:00 Mechanical Ventilator+ Total Intake and Output 04/08/25 04/08/25 04/09/25 15:00 23:00 07:00 Intake Total 312.0 ml 224.5 ml 299.185 ml Output Total 350 ml 450 ml Balance 312.0 ml -125.5 ml -150.815 ml medications Current Medications Medications Dose Ordered Sig/Guy Route Start Time Stop Time Status Last Admin Dose Admin Famotidine 20 mg Q12HR IV 04/03/25 10:00 04/09/25 10:24 20 MG Docusate Sodium 100 mg BIDPRN PRN PO 04/02/25 23:15 Acetaminophen 650 mg Q6HP PRN PO 04/02/25 23:15 Nitroglycerin 0.4 mg Q5MINP PRN SL 04/03/25 00:00 Norepinephrine Bitartrate 250 ml @ 3.75 mls/hr Q24H IV 04/03/25 10:00 UNV Midazolam HCl 100 ml @ 1 mls/hr Q24H IV 04/03/25 10:00 04/08/25 03:45 3 MLS/HR Acetaminophen 650 mg Q6HP PRN [place] 04/03/25 20:15 Fentanyl Citrate 250 ml @ 2.5 mls/hr Q24H IV 04/06/25 05:30 04/08/25 04:37 7.5 MLS/HR Fat Emulsion Intravenous 50 ml/ Sodium Chloride 40 meq/Potassium Chloride 20 meq/ Potassium Phosphate 44 meq/ Calcium Gluconate 2.3 meq/Magnesium Sulfate 8 meq/ Multivitamins 10 ml/Chromium/ Copper/Manganese/ Zinc 1 ml/Amino Acids/Dextrose/ Purified Water 1,047.9462 ml @ 44 mls/hr [id number] IV 04/06/25 22:00 04/06/25 22:00 Cancel Cefepime HCl 50 ml @ 12.5 mls/hr Q12HR@0600,1800 IV 04/07/25 06:00 04/09/25 06:09 12.5 MLS/HR Micafungin Sodium 100 mg/Sodium Chloride 100 ml @ 100 mls/hr DAILY IV 04/07/25 10:00 04/09/25 10:24 100 MLS/HR Doxycycline Hyclate 100 ml @ 50 mls/hr Q12H IV 04/06/25 14:45 04/09/25 15:23 50 MLS/HR Enteral Nutritional Formula 1,000 ml 40ML/HR GT 04/06/25 15:15 04/08/25 16:58 1,000 ML Amino Acid Protein 30 ml DAILY PO 04/07/25 10:00 04/09/25 10:24 30 ML Albuterol 2.5 mg Q8H NEB 04/07/25 14:00 04/09/25 15:20 2.5 MG Ipratropium [place] 0.5 mg Q8H NEB 04/07/25 14:00 04/09/25 15:20 0.5 MG Norepinephrine Bitartrate 250 ml @ 3.75 mls/hr Q24H IV 04/08/25 09:00 04/08/25 17:33 7.5 MLS/HR Polyethylene Glycol 17 gm DAILY PO 04/09/25 10:00 04/09/25 10:24 17 GM Methylprednisolone Sodium Succinate 40 mg Q8HR IV 04/09/25 14:00 Examination Patient lying in bed General: Patient is intubated, sedated, is able to open her eyes HEENT: Normocephalic, atraumatic, moist mucous membranes Respiratory/pulmonary: diminished breath sounds bilaterally. Cardiovascular: Normal heart sounds S1 and S2 with no associated murmurs Abdomen: Abdomen nondistended, there is no pain to palpation in any of the abdominal quadrants, no palpable masses. Extremities: There is no peripheral edema present at the lower extremities. Peripheral Pulses: 3+ Radial (R). 3+ Radial (L). 3+ Dorsalis pedis (R). 3+ Dorsalis pedis(L) Skin: Multiple skin tears, no sacral wound present, Neurological: pupils are sluggish and anisocoric, left 3 mm right 2 mm laboratory and microbiology Laboratory Tests 04/09/25 03:00 Test 04/09/25 03:00 Range/Units Serum Glucose 136 H 74-106 mg/dL Microbiology Date/Time Source Procedure Growth Status 04/05/25 08:00 Nose MRSA Screen - Final Complete 04/03/25 10:00 Sputum Endotracheal Wash Gram Stain - Final Resulted 04/03/25 10:00 Sputum Endotracheal Wash Respiratory Culture - Preliminary Resulted 04/02/25 20:04 Blood Blood Culture - Final NO GROWTH AFTER 5 DAYS OF INCUBATION. Complete Problem List/Assessment/Plan Problem List/Assessment/Plan Neurology Acute metabolic/hypoxic encephalopathy likely due to COPD exacerbation - Mechanically ventilated, sedated: RASS score -3 - ventilator setting: on AC mode; RR 20,VT 350, Fio2-35%, PEEP-5 - neurology on board - Ordered MRI of head and Neck, MRA angio of neck Cardiology Chronic diastolic Congestive heart failure - as per daughter EF of 50% Respiratory Sepsis likely due to below Acute on chronic hypoxic respiratory failure secondary to acute COPD exacerbation/ pneumonia Acute G +/- Bacterial PNA possible atelectasis - continue bronchodilators, - continue Solu-Medrol 40 mg - chest xray: Slight interval advancement of the endotracheal tube such that the tip now projects approximately 3.9 cm above the level of the vani. Remaining lines and tubes unchanged. Stable chronic appearing bilateral interstitial pulmonary markings and mild bibasilar pulmonary airspace disease - IV metronidazole, azithromycin changed to doxycycline, cefepime, micafungin - respiratory culture -showed for filamentous fungi -Chest CT showed lower lobe consolidation, multiple small foci, severe centrilobar Emphysema. failed cpap trial due to hypoxia and tachycardia GI/Liver Cachexia BMI 15.3 Severe protein malnutrition Slow transit constipation - Miralax Hematology Anemia of chronic disease Iron deficiency anemia Renal Electrolytes hyponatremia hypocalcemia hypophosphatemia - replete electrolytes - Monitor electrolytes Lines/tubes/devices Airway: Intubated via ETT on 04/03/25 Vascular access: Central line Rt IJ 04/05 and Rt femoral 04/03 Drips: Fentanyl, midazolam Diet: Vital HP DVT prophylaxis: Lovenox GI prophylaxis: Protonix Great discussion taken place with Daughter for 37 mins about patients condition and poor prognosis, and possible Tracheostomy. Goals of car discussed with family for more than 29 minutes : Full code Care plan updated to the family, critical time spent more than including cpap trial and monitoring 84 minutes excluding procedures Case discussed with Dr. Briggs, RN Plan discussed with: Daughter My Orders My Orders Orders - CRICKET GUAMAN RESIDENT Procedure Category Date Status Time Abg W/ Co-Ox RT 04/09/25 Logged 05:28 Dietary Evaluation Review Comments: 1) If patient remains NPO > 7 days, consider EN/TPN to meet at least 75% estimated daily needs 2) If gut is preferred, initiate Vital High Protein @ 40 mL/hr goal rate as tolerated. Flush with 50 mL free H2O Q6H. EN regimen will provide 960 kcals, 84g Pro, and 1003 mL free H2O (including TF flushes) per 24 hrs. Goal rate will meet ~ 95% estimated energy needs and ~ 93% estimated protein needs 3) Advance to cardiac diet when medically feasible, pending ST approval 4) Refer to outpatient RD for weight management 5) Follow-up with cardiology and pulmonology 6) Continue to monitor I&O, labs, and skin integrity Expected Outcomes/Goals: 1) patient to receive nutritional support within 7 days of NPO status 2) labs to improve 3) diet to advance 4) gradual wt gain 5) f/u in 2-3 days Date of Service: Apr 09, 2025 Billing Provider: REBECCA BRIGGS MD Common Visit Codes: 14331-[id number] CARE 30-74 MIN, 13264-[id number] CARE-EACH +30MIN CRICKET GUAMAN RESIDENT Apr 09, 2025 16:18 REBECCA BRIGGS MD Apr 11, 2025 11:36
--- NOTE | 2025-04-10 11:43 | DVHPNRES ---
Progress Note Date Seen: Apr 10, 2025 Resident Creating Document: CRICKET GUAMAN RESIDENT Medical Necessity Reason Pt with a Central, PICC or Fol: Yes The following are medically ne: Central Line, Chin Catheter Subjective Review of Systems Patient is a 59 year old female with past medical history of CHF, Chronic obstructive pulmonary disease, GERD, hyperlipidemia who presented to hospital with chief complaints of shortness of breath. As per daughter patient had increased work of breathing, uses home oxygen 2 L, which was increased to 6 L at home for which saturation improved to 94%. Patient in the ER became altered and was intubated on 04/03/25. as per daughter echocardiogram showed 50% in [facility]. x-ray showed Stable chronic appearing bilateral interstitial pulmonary markings and mild bibasilar pulmonary airspace disease. Past surgical history: Tonsillectomy family history: reviewed, noncontributory Social history: per daughter patient has smoked since she was 15 years old and nicotine vape, used methamphetamine Patient seen and examined at bedside. intubated, mechanically ventilated, on AC mode; RR 20,VT 350, Fio2-35%, PEEP-5. patient has multiple skin tears, is able to open her eyes but is not able to communicate. pupils are anisocoric. She is on Levo 8. no overnight events were reported, antibiotics changed to doxycycline, cefepime, micafungin. MRI pending. Discussed with Daughter about possible tracheostomy. Cpap trial failed, we will try tomorrow. Tried calling the Daughter today, she did not flower buncher or picker. Objective vital signs Vital Sign Date Time Temp Pulse Resp B/P (MAP) Pulse Ox O2 Delivery O2 Flow Rate FiO2 04/10/25 10:09 106 21 132/77 (95) 95 30 04/10/25 08:30 98.2 208.8 04/10/25 08:00 Mechanical Ventilator+ Total Intake and Output 04/09/25 04/09/25 04/10/25 15:00 23:00 07:00 Intake Total 202.160 ml 212.245 ml 171.480 ml Output Total 450 ml 500 ml Balance 202.160 ml -237.755 ml -328.520 ml medications Current Medications Medications Dose Ordered Sig/Guy Route Start Time Stop Time Status Last Admin Dose Admin Famotidine 20 mg Q12HR IV 04/03/25 10:00 04/10/25 09:50 20 MG Docusate Sodium 100 mg BIDPRN PRN PO 04/02/25 23:15 Acetaminophen 650 mg Q6HP PRN PO 04/02/25 23:15 Nitroglycerin 0.4 mg Q5MINP PRN SL 04/03/25 00:00 Norepinephrine Bitartrate 250 ml @ 3.75 mls/hr Q24H IV 04/03/25 10:00 UNV Midazolam HCl 100 ml @ 1 mls/hr Q24H IV 04/03/25 10:00 04/08/25 03:45 3 MLS/HR Acetaminophen 650 mg Q6HP PRN [place] 04/03/25 20:15 Fentanyl Citrate 250 ml @ 2.5 mls/hr Q24H IV 04/06/25 05:30 04/10/25 00:44 5 MLS/HR Fat Emulsion Intravenous 50 ml/ Sodium Chloride 40 meq/Potassium Chloride 20 meq/ Potassium Phosphate 44 meq/ Calcium Gluconate 2.3 meq/Magnesium Sulfate 8 meq/ Multivitamins 10 ml/Chromium/ Copper/Manganese/ Zinc 1 ml/Amino Acids/Dextrose/ Purified Water 1,047.9462 ml @ 44 mls/hr [id number] IV 04/06/25 22:00 04/06/25 22:00 Cancel Cefepime HCl 50 ml @ 12.5 mls/hr Q12HR@0600,1800 IV 04/07/25 06:00 04/10/25 07:05 12.5 MLS/HR Micafungin Sodium 100 mg/Sodium Chloride 100 ml @ 100 mls/hr DAILY IV 04/07/25 10:00 04/10/25 09:50 100 MLS/HR Doxycycline Hyclate 100 ml @ 50 mls/hr Q12H IV 04/06/25 14:45 04/10/25 02:18 50 MLS/HR Enteral Nutritional Formula 1,000 ml 40ML/HR GT 04/06/25 15:15 04/08/25 16:58 1,000 ML Amino Acid Protein 30 ml DAILY PO 04/07/25 10:00 04/09/25 10:24 30 ML Albuterol 2.5 mg Q8H NEB 04/07/25 14:00 04/10/25 06:09 2.5 MG Ipratropium [place] 0.5 mg Q8H NEB 04/07/25 14:00 04/10/25 06:08 0.5 MG Norepinephrine Bitartrate 250 ml @ 3.75 mls/hr Q24H IV 04/08/25 09:00 04/08/25 17:33 7.5 MLS/HR Polyethylene Glycol 17 gm DAILY PO 04/09/25 10:00 04/09/25 10:24 17 GM Methylprednisolone Sodium Succinate 40 mg Q8HR IV 04/09/25 14:00 04/10/25 07:06 40 MG Sodium Chloride 10 ml QSHIFT@10,22 IV 04/09/25 22:00 04/10/25 09:49 10 ML Examination Patient lying in bed General: Patient is intubated, sedated, is able to open her eyes HEENT: Normocephalic, atraumatic, moist mucous membranes Respiratory/pulmonary: diminished breath sounds bilaterally. Cardiovascular: Normal heart sounds S1 and S2 with no associated murmurs Abdomen: Abdomen nondistended, there is no pain to palpation in any of the abdominal quadrants, no palpable masses. Extremities: There is no peripheral edema present at the lower extremities. Peripheral Pulses: 3+ Radial (R). 3+ Radial (L). 3+ Dorsalis pedis (R). 3+ Dorsalis pedis(L) Skin: Multiple skin tears, no sacral wound present, Neurological: pupils are sluggish and anisocoric, left 3 mm right 2 mm laboratory and microbiology Laboratory Tests 04/10/25 03:00 Test 04/10/25 03:00 Range/Units Serum Glucose 108 H 74-106 mg/dL Microbiology Date/Time Source Procedure Growth Status 04/05/25 08:00 Nose MRSA Screen - Final Complete 04/03/25 10:00 Sputum Endotracheal Wash Gram Stain - Final Resulted 04/03/25 10:00 Sputum Endotracheal Wash Respiratory Culture - Preliminary Resulted 04/02/25 20:04 Blood Blood Culture - Final NO GROWTH AFTER 5 DAYS OF INCUBATION. Complete Problem List/Assessment/Plan Problem List/Assessment/Plan Neurology Acute metabolic/hypoxic encephalopathy likely due to COPD exacerbation - Mechanically ventilated, sedated: RASS score -3 - ventilator setting: on AC mode; RR 20,VT 350, Fio2-35%, PEEP-5 - neurology on board - Ordered MRI of head and Neck, MRA angio of neck Cardiology Chronic diastolic Congestive heart failure - as per daughter EF of 50% Respiratory Sepsis likely due to below Acute on chronic hypoxic respiratory failure secondary to acute COPD exacerbation/ pneumonia Acute G +/- Bacterial PNA possible atelectasis - continue bronchodilators, - continue Solu-Medrol 40 mg - chest xray: Slight interval advancement of the endotracheal tube such that the tip now projects approximately 3.9 cm above the level of the vani. Remaining lines and tubes unchanged. Stable chronic appearing bilateral interstitial pulmonary markings and mild bibasilar pulmonary airspace disease - IV metronidazole, azithromycin changed to doxycycline, cefepime, micafungin - respiratory culture -showed for filamentous fungi -Chest CT showed lower lobe consolidation, multiple small foci, severe centrilobar Emphysema. GI/Liver Cachexia BMI 15.3 Severe protein malnutrition Slow transit constipation - Miralax Hematology Anemia of chronic disease Iron deficiency anemia Renal Electrolytes hyponatremia hypocalcemia hypophosphatemia - replete electrolytes - Monitor electrolytes Lines/tubes/devices Airway: Intubated via ETT on 04/03/25 Vascular access: Central line Rt IJ 04/05 and Rt femoral 04/03 Drips: Fentanyl, midazolam Diet: Vital HP DVT prophylaxis: Lovenox GI prophylaxis: Protonix Great discussion taken place with Daughter for 37 mins about patients condition and poor prognosis, and possible Tracheostomy. Goals of car discussed with family for more than 29 minutes : Full code Care plan updated to the family, critical time spent more than 84 minutes excluding procedures Case discussed with Dr. Vo , RN Plan discussed with: Daughter My Orders My Orders Orders - CRICKET GUAMAN RESIDENT Procedure Category Date Status Time Abg W/ Co-Ox RT 04/10/25 Logged 04:00 Chest Xray 1 View XY 04/10/25 Resulted 04:00 Dietary Evaluation Review Comments: 1) If patient remains NPO > 7 days, consider EN/TPN to meet at least 75% estimated daily needs 2) If gut is preferred, initiate Vital High Protein @ 40 mL/hr goal rate as tolerated. Flush with 50 mL free H2O Q6H. EN regimen will provide 960 kcals, 84g Pro, and 1003 mL free H2O (including TF flushes) per 24 hrs. Goal rate will meet ~ 95% estimated energy needs and ~ 93% estimated protein needs 3) Advance to cardiac diet when medically feasible, pending ST approval 4) Refer to outpatient RD for weight management 5) Follow-up with cardiology and pulmonology 6) Continue to monitor I&O, labs, and skin integrity Expected Outcomes/Goals: 1) patient to receive nutritional support within 7 days of NPO status 2) labs to improve 3) diet to advance 4) gradual wt gain 5) f/u in 2-3 days CRICKET GUAMAN RESIDENT Apr 10, 2025 10:34
--- NOTE | 2025-04-10 22:13 | DVHPN2 ---
Consult Progress Note Objective vital signs Vital Sign Date Time Temp Pulse Resp B/P (MAP) Pulse Ox O2 Delivery O2 Flow Rate FiO2 04/10/25 22:08 94 20 101/49 (66) 97 30 04/10/25 22:00 Mechanical Ventilator+ 04/10/25 20:00 98.4 98.4 Total Intake and Output 04/09/25 04/09/25 04/10/25 15:00 23:00 07:00 Intake Total 202.160 ml 212.245 ml 171.480 ml Output Total 450 ml 500 ml Balance 202.160 ml -237.755 ml -328.520 ml medications Current Medications Medications Dose Ordered Sig/Guy Route Start Time Stop Time Status Last Admin Dose Admin Famotidine 20 mg Q12HR IV 04/03/25 10:00 04/10/25 09:50 20 MG Docusate Sodium 100 mg BIDPRN PRN PO 04/02/25 23:15 Acetaminophen 650 mg Q6HP PRN PO 04/02/25 23:15 Nitroglycerin 0.4 mg Q5MINP PRN SL 04/03/25 00:00 Norepinephrine Bitartrate 250 ml @ 3.75 mls/hr Q24H IV 04/03/25 10:00 UNV Midazolam HCl 100 ml @ 1 mls/hr Q24H IV 04/03/25 10:00 04/08/25 03:45 3 MLS/HR Acetaminophen 650 mg Q6HP PRN MN 04/03/25 20:15 Fentanyl Citrate 250 ml @ 2.5 mls/hr Q24H IV 04/06/25 05:30 04/10/25 00:44 5 MLS/HR Fat Emulsion Intravenous 50 ml/ Sodium Chloride 40 meq/Potassium Chloride 20 meq/ Potassium Phosphate 44 meq/ Calcium Gluconate 2.3 meq/Magnesium Sulfate 8 meq/ Multivitamins 10 ml/Chromium/ Copper/Manganese/ Zinc 1 ml/Amino Acids/Dextrose/ Purified Water 1,047.9462 ml @ 44 mls/hr [id number] IV 04/06/25 22:00 04/06/25 22:00 Cancel Cefepime HCl 50 ml @ 12.5 mls/hr Q12HR@0600,1800 IV 04/07/25 06:00 04/10/25 16:55 12.5 MLS/HR Micafungin Sodium 100 mg/Sodium Chloride 100 ml @ 100 mls/hr DAILY IV 04/07/25 10:00 04/10/25 09:50 100 MLS/HR Doxycycline Hyclate 100 ml @ 50 mls/hr Q12H IV 04/06/25 14:45 04/10/25 13:00 50 MLS/HR Enteral Nutritional Formula 1,000 ml 40ML/HR GT 04/06/25 15:15 04/08/25 16:58 1,000 ML Amino Acid Protein 30 ml DAILY PO 04/07/25 10:00 04/09/25 10:24 30 ML Albuterol 2.5 mg Q8H NEB 04/07/25 14:00 04/10/25 22:08 2.5 MG Ipratropium [place] 0.5 mg Q8H NEB 04/07/25 14:00 04/10/25 22:08 0.5 MG Norepinephrine Bitartrate 250 ml @ 3.75 mls/hr Q24H IV 04/08/25 09:00 04/08/25 17:33 7.5 MLS/HR Polyethylene Glycol 17 gm DAILY PO 04/09/25 10:00 04/09/25 10:24 17 GM Methylprednisolone Sodium Succinate 40 mg Q8HR IV 04/09/25 14:00 04/10/25 13:00 40 MG Sodium Chloride 10 ml QSHIFT@10,22 IV 04/09/25 22:00 04/10/25 09:49 10 ML laboratory and microbiology Laboratory Tests 04/10/25 03:00 Test 04/10/25 03:00 Range/Units Serum Glucose 108 H 74-106 mg/dL Problem List/Assessment/Plan Problem List/Assessment/Plan Today's Encounter Date: 04/06/2025 Patient Name: Pao Provider: Gordon Coley ASSESSMENT AND PLAN: ID Problem List: -Community-acquired pneumonia (CXR: patchy right > left opacities) -Septic shock (ICU transfer in the setting of pneumonia; BP 94/54 noted) -Acute on chronic respiratory failure with hypercapnia (pH 7.35, pCO2 83.1) requiring mechanical ventilation -Suspected COPD exacerbation related to pneumonia -Prolonged QTc (503 ms) fluoroquinolones avoided -Penicillin allergy (unknown reaction, since 2021) -Leukocytosis (WBC 22.5 K/L) -Anemia (Hgb 9.7 g/dL) -Hyponatremia (Na 133 mmol/L) -History of CHF, GERD, anxiety, hypertension, hyperlipidemia; chronic hypotension noted Assessment This is a 59 y.o. female with a past medical history of CHF, anxiety, COPD, GERD, hypertension, hyperlipidemia, and chronic hypotension who presents with shortness of breath and hypoxemia (desaturation to 70% on 6 L NC). ED CXR showed patchy right greater than left opacities favoring infection; admitted for pneumonia. Transferred to ICU for septic shock in the setting of pneumonia. Viral testing (influenza A/B, COVID-19) negative. UA without growth. Blood cultures no growth to date (04/05). ABG with hypercapnia (pH 7.35, pCO2 83.1). BNP 38.81. EKG with QTc 503 ms. Preliminary sputum culture with rare filamentous fungi (awaiting further results). The clinical picture is consistent with pneumonia with concurrent COPD exacerbation and hypercapnic respiratory failure requiring mechanical ventilation. 04/05: CXR with improved pneumonia, persistent fevers, improved levophed 04/06: prolonged qtc , fungi filamentous on cxr Plan: -Antimicrobials: -stop azithromycin and flagyl, swich to cefepime and doxycycline -start micafungin - test for cocci and aspergillus - agree with chest CT -Avoid fluoroquinolones due to prolonged QTc. -Follow up sputum culture results; adjust therapy per susceptibilities. -Follow up blood cultures; currently no growth to date (04/05). -Respiratory: -Mechanical ventilation management per document specialist team; current settings documented below. -Wean as tolerated to high-flow nasal cannula when appropriate. -COPD therapies per pulmonology: bronchodilators, systemic steroids, mucolytics. -Monitoring: -Monitor temperature curve; if persistent fevers, reassess antimicrobial coverage. -Repeat chest X-ray daily. -Maintain MAP > 65 mmHg; titrate vasoactive support as needed. -Monitor QTc; continue to avoid QT-prolonging agents where feasible. 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 -Diagnostics: -Recommend sputum culture (pending/follow-up). -Continue to monitor labs (CBC, BMP, lactate) and ABGs as clinically indicated. Authorized and Performed by: Gordon Coley Total critical care time: Approximately 76 minutes Due to a high probability of clinically significant, life threatening deterioration, the patient required my highest level of preparedness to intervene emergently and I personally spent this critical care time directly and personally managing the patient. This critical care time included obtaining a history; examining the patient; pulse oximetry; ordering and review of studies; arranging urgent treatment with development of a management plan; evaluation of patient's response to treatment; frequent reassessment; and, discussions with other providers. This critical care time was performed to assess and manage the high probability of imminent, life-threatening deterioration that could result in multi-organ failure. It was exclusive of separately billable procedures and treating other patients and teaching time. Isolation Precautions: Not provided in transcript. \ Physical Exam: General: NAD Neck: Supple. No masses. HEENT: PERRL. Normal lids and conjunctiva. Moist mucous membranes. Oropharynx without lesions, exudates or excessive erythema. Normal appearance of the external aspects of the nose and ears. Heart: Regular rhythm, normal rate. No murmur. No lower extremity edema. Lungs: Normal respiratory effort. Clear to auscultation bilaterally. Wheezes present. Patient is mechanically ventilated. Abdomen: Soft. Non-tender. Non-distended. No masses or abdominal hernia. Msk: No digital cyanosis. Normal strength and tone in all 4 limbs Skin: Warm and dry, no rashes. Neuro: Alert. No facial droop or slurred speech. Extra-ocular movements intact. Sensation intact to soft touch in all 4 limbs. Psych: Appropriate mood. Full affect. Oriented to person, place, time, and situation. Dietary Evaluation Review Comments: 1) If patient remains NPO > 7 days, consider EN/TPN to meet at least 75% estimated daily needs 2) If gut is preferred, initiate Vital High Protein @ 40 mL/hr goal rate as tolerated. Flush with 50 mL free H2O Q6H. EN regimen will provide 960 kcals, 84g Pro, and 1003 mL free H2O (including TF flushes) per 24 hrs. Goal rate will meet ~ 95% estimated energy needs and ~ 93% estimated protein needs 3) Advance to cardiac diet when medically feasible, pending ST approval 4) Refer to outpatient RD for weight management 5) Follow-up with cardiology and pulmonology 6) Continue to monitor I&O, labs, and skin integrity Expected Outcomes/Goals: 1) patient to receive nutritional support within 7 days of NPO status 2) labs to improve 3) diet to advance 4) gradual wt gain 5) f/u in 2-3 days GORDON COLEY MD Apr 10, 2025 22:13
--- NOTE | 2025-04-10 22:45 | DVHPN2 ---
Subjective DOS: 04/10/2025 Patient seen and examined at bedside. Intubated on mechanical ventilator. Overnight events reviewed. Changes from previous H/P or p: No Changes Eyes: No Pain, No Vision change, No Conjunctivae inflammation, No Eyelid inflammation, No Other, No Redness ENT: No Ear pain, No Ear discharge, No Nose pain, No Nose discharge, No Nose congestion, No Mouth pain, No Mouth swelling, No Throat pain, No Throat swelling, No Other Cardiovascular: No Chest Pain, No Palpitations, No Orthopnea, No Paroxysmal Noc. Dyspnea, No Edema, No Lt Headedness, No Other Respiratory: No Cough, No Dry; Shortness of breath; No SOB with excertion, No Wheezing, No Hemoptysis, No Pleuritic Pain, No Sputum; Other (SOB at rest) Gastrointestinal: No Nausea, No Vomiting, No Abdominal Pain, No Diarrhea, No Constipation, No Melena, No Hematochezia, No Other Genitourinary: No Dysuria, No Frequency, No Incontinence, No Hematuria, No Retention, No Other Musculoskeletal: No other, No neck pain, No shoulder pain, No arm pain, No back pain, No hand pain, No leg pain, No foot pain Skin: No Rash, No Lesions, No Jaundice, No Bruising, No Other Objective Vitals Vital Signs Date Time Temp Pulse Resp B/P (MAP) Pulse Ox O2 Delivery O2 Flow Rate FiO2 04/10/25 22:08 94 20 101/49 (66) 97 30 04/10/25 22:00 Mechanical Ventilator+ 04/10/25 20:00 98.4 98.4 Intake/Output Intake and Output 04/10/25 07:00 Intake Total 585.885 ml Output Total 950 ml Balance -364.115 ml Intake Oral 30 ml IV Total 525.885 ml Tube Feeding 30 ml Output Urine Total 950 ml # Bowel Movements 4 Exam Gen.: Patient lying in bed in medical ICU. Intubated on mechanical ventilator. Head: Normocephalic, atraumatic. Eyes: Pupils anisocoric. Ears: Normal external anatomy. Throat: Endotracheal tube and orogastric tube in place. Neck: Supple, trachea midline. Chest: Transmitted breath sounds bilaterally. Decreased air entry bilaterally. No wheezing. Bibasilar crackles. Cardiovascular: Positive S1, positive S2. Regular rate and rhythm. Abdomen: Positive bowel sounds in all 4 quadrants. Soft, nontender, nondistended. : Chin in place. Normal external genitalia. Rectal: Deferred. Skin: Warm, dry. Intact. Extremities: 2+ radial pulses bilaterally. No lower extremity edema. Neuro: Off sedation. Opens eyes, not following commands Medications Current Medications Medications Dose Ordered Sig/Guy Route Start Time Stop Time Status Last Admin Dose Admin Famotidine 20 mg Q12HR IV 04/03/25 10:00 04/10/25 22:15 20 MG Docusate Sodium 100 mg BIDPRN PRN PO 04/02/25 23:15 Acetaminophen 650 mg Q6HP PRN PO 04/02/25 23:15 Nitroglycerin 0.4 mg Q5MINP PRN SL 04/03/25 00:00 Norepinephrine Bitartrate 250 ml @ 3.75 mls/hr Q24H IV 04/03/25 10:00 UNV Midazolam HCl 100 ml @ 1 mls/hr Q24H IV 04/03/25 10:00 04/08/25 03:45 3 MLS/HR Acetaminophen 650 mg Q6HP PRN HI 04/03/25 20:15 Fentanyl Citrate 250 ml @ 2.5 mls/hr Q24H IV 04/06/25 05:30 04/10/25 00:44 5 MLS/HR Fat Emulsion Intravenous 50 ml/ Sodium Chloride 40 meq/Potassium Chloride 20 meq/ Potassium Phosphate 44 meq/ Calcium Gluconate 2.3 meq/Magnesium Sulfate 8 meq/ Multivitamins 10 ml/Chromium/ Copper/Manganese/ Zinc 1 ml/Amino Acids/Dextrose/ Purified Water 1,047.9462 ml @ 44 mls/hr [id number] IV 04/06/25 22:00 04/06/25 22:00 Cancel Cefepime HCl 50 ml @ 12.5 mls/hr Q12HR@0600,1800 IV 04/07/25 06:00 04/10/25 16:55 12.5 MLS/HR Micafungin Sodium 100 mg/Sodium Chloride 100 ml @ 100 mls/hr DAILY IV 04/07/25 10:00 04/10/25 09:50 100 MLS/HR Doxycycline Hyclate 100 ml @ 50 mls/hr Q12H IV 04/06/25 14:45 04/10/25 13:00 50 MLS/HR Enteral Nutritional Formula 1,000 ml 40ML/HR GT 04/06/25 15:15 04/08/25 16:58 1,000 ML Amino Acid Protein 30 ml DAILY PO 04/07/25 10:00 04/09/25 10:24 30 ML Albuterol 2.5 mg Q8H NEB 04/07/25 14:00 04/10/25 22:08 2.5 MG Ipratropium [place] 0.5 mg Q8H NEB 04/07/25 14:00 04/10/25 22:08 0.5 MG Norepinephrine Bitartrate 250 ml @ 3.75 mls/hr Q24H IV 04/08/25 09:00 04/08/25 17:33 7.5 MLS/HR Polyethylene Glycol 17 gm DAILY PO 04/09/25 10:00 04/09/25 10:24 17 GM Methylprednisolone Sodium Succinate 40 mg Q8HR IV 04/09/25 14:00 04/10/25 22:15 40 MG Sodium Chloride 10 ml QSHIFT@ IV 04/09/25 22:00 04/10/25 22:15 10 ML Laboratory Results Laboratory Tests 04/10/25 03:00 Chemistry Test 04/10/25 03:00 Albumin 2.7 g/dL (3.2-4.8) L Calcium Level 8.4 mg/dL (8.7-10.4) L Magnesium Level 1.7 mg/dL (1.6-2.6) Total Protein 4.7 g/dL (5.7-8.2) L LFT Test 04/10/25 03:00 Alanine Aminotransferase (ALT) 27 U/L (7-40) Alkaline Phosphatase 54 U/L (46-116) Aspartate Amino Transferase (AST) 26 U/L (13-40) Total Bilirubin 0.4 mg/dL (0.2-1.0) Urinalysis Test 04/02/25 20:38 Urine Color Yellow (Yellow) Urine Clarity Clear (Clear) Urine pH 5.5 (5.0-9.0) Urine Specific [place] 1.015 (1.001-1.035) Urine Protein Trace (Negative) H Urine Ketones Negative (Negative) Urine Blood Negative /uL (Negative) Urine Nitrite Negative (Negative) Urine Bilirubin Negative (Negative) Urine Urobilinogen Normal mg/dL (Negative) Urine Leukocyte Esterase Negative /uL (Negative) Urine RBC 1 /hpf (0 - 4) Urine Microscopic WBC 1 /HPF (0-5) Urine Squamous Epithelial Cells None seen /hpf (<5) Urine Bacteria None seen /hpf (None Seen) Urine Mucus Few (None Seen) Urine Glucose Normal mg/dL (Normal) Blood Gas Results Test 04/10/25 06:57 04/10/25 10:48 Arterial Blood pH 7.482 (7.350-7.450) 7.397 (7.350-7.450) FiO2 % 30.0 30.0 Microbiology Microbiology Date/Time Source Procedure Growth Status 04/05/25 08:00 Nose MRSA Screen - Final Complete 04/03/25 10:00 Sputum Endotracheal Wash Gram Stain - Final Resulted 04/03/25 10:00 Sputum Endotracheal Wash Respiratory Culture - Preliminary Resulted 04/02/25 20:04 Blood Blood Culture - Final NO GROWTH AFTER 5 DAYS OF INCUBATION. Complete Assessment/Plan Assessment/Plan Impression: Acute hypoxic respiratory failure On mechanical ventilator Acute COPD exacerbation Congestive heart failure Atelectasis Leukocytosis Cachexia, BMI 16.5 Events: Patient seen and examined at bedside. Remains on vent support On AC mode; RR 20, VT 350, PEEP 5, FiO2 35% Taper FiO2 as tolerated Patient has multiple skin tears. She is able to open her eyes but is not able to communicate. No overnight events were reported Antibiotics changed to doxycycline, cefepime, micafungin. MRI pending. Discussed with daughter about possible tracheostomy. CPAP trial failed, we will try tomorrow. 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 Pressors for hemodynamic support. On Levophed 8 mcg/min Titrate to keep MAP greater than 65 mmHg. Continue bronchodilators. Continue antibiotics Follow up cultures Continue steroids Monitor blood pressure Labs and imaging reviewed. Rest of plan as noted below. Plan: s/p intubation on mechanical ventilator. On AC mode; RR 20, VT 350, PEEP 5, FiO2 35% Titrate FIO2 to keep O2 saturation above 90%. VAP bundle. Daily ABG and CXR while intubated Sedate for ventilator synchrony Continue bronchodilators. Continue antibiotics Monitor WBC - 11.1 K Continue steroids Pressors as necessary for hemodynamic support. Titrate to keep MAP greater than 65 mmHg. Follow up Cardiology recs Monitor hemoglobin - currently 8.6 g/dL Transfuse if less than 7.0 g/dL. Monitor renal function. Monitor electrolytes. Supplement as necessary. Monitor ins and outs. GI/DVT prophylaxis. Prognosis: Poor given patient's multiple co-morbidities. Condition: Critical Rest of plan per hospitalist and other consultants. A total of 35 minutes of critical care time was spent reviewing the patient record, examining the patient, making a diagnostic and therapeutic plan, discussing this plan with the medical personnel, following up on diagnostic studies and following the patient for clinical stability excluding any and all procedures. At least 50% of this time was spent in direct, [id number] contact. Thank you, Dr. Hunter, for allowing me to participate in this patient's care. Further recommendations will depend on the patient's clinical course. Please do not hesitate to contact me if you have any questions or concerns. This medical document was created using an electronic medical record system with [employer] dictation system. Although these documentations are being carefully reviewed, there may still be some phonetic and typographical changes. The errors are purely typographical, due to imperfection on the software program, and do not reflect any compromise in the patient's medical care. Plan discussed with: Other (RN) Visit Coding Pulmonary Billing Provider: LIDIA KLEIN MD Date of Service if different f: Apr 10, 2025 Common Visit Codes: 11800-[id number] INP/OBS CARE(HIGH), 90257-[id number] CARE 30-74 MIN LIDIA KLEIN MD Apr 10, 2025 22:45
[2025-04-11] VITALS (108 sets, daily range): BP systolic 75–144; BP diastolic 34–82; PULSE 77–125; RESP 12–27; TEMP 97.2–98.3; O2SAT 87–100
[2025-04-11 03:13] LABS: Hematocrit 26.1 % (36.0-46.0); Hemoglobin 8.8 g/dL (12.2-16.2); Mean Corpuscular Hemoglobin 31.4 pg (28.0-32.0); Mean Corpuscular Volume 92.7 fL (80.0-100.0); Nucleated Red Blood Cells % 0.0 %
[2025-04-11 03:35] LABS: Alanine Aminotransferase 32 U/L (7-40); Alkaline Phosphatase 60 U/L (46-116); Anion Gap 4 (5-15); BUN/Creatinine Ratio 69.2 (10.0-20.0); Bilirubin, Total 0.6 mg/dL (0.2-1.0); Chloride 101 mmol/L (98-107); Glucose 93 mg/dL (74-106); Potassium 4.3 mmol/L (3.5-5.1); Sodium 141 mmol/L (136-145)
[2025-04-11 03:56] LABS: Albumin 2.8 g/dL (3.2-4.8); Blood Urea Nitrogen 27 mg/dL (9-23); Calcium 8.6 mg/dL (8.7-10.4); Carbon Dioxide 36 mmol/L (20-31); Total Protein 4.5 g/dL (5.7-8.2)
--- NOTE | 2025-04-11 06:24 | DVH ---
CHEST RADIOGRAPH Indication: on vent Technique: Single frontal view of the chest was obtained COMPARISON: XY CHEST XRAY 1 VIEW on DOS: 04/10/25, XY CHEST XRAY 1 VIEW on DOS: 04/09/25, XY CHEST XR AY 1 VIEW on DOS: 04/08/25, XY CHEST PORTABLE on DOS: 04/07/25, XY CHEST XRAY 1 VIEW on DOS: 04/07/25 FINDINGS: Lines and Tubes: Unchanged. Lungs: Stable small bilateral pleural effusions and chronic appearing bilateral interstitial pulmonar y markings. No evidence of focal consolidation. No pneumothorax. Cardiomediastinal contours: Unremarkable Bones: Unremarkable. Subacute to chronic appearing right humeral head and surgical neck fracture note d. IMPRESSION: 1. Stable small bilateral pleural effusions and chronic appearing bilateral interstitial pulmonary ma rkings. 2. Lines and tubes unchanged.
[2025-04-11 07:07] LABS: Base Excess 4.8 mmol/L (-2.0-3.0)
[2025-04-11] MEDS: MAGNESIUM SULFATE 1GM/100ML 100 ML IV ONE (08:37)
--- NOTE | 2025-04-11 14:43 | DVHPNRES ---
Progress Note Date Seen: Apr 11, 2025 Resident Creating Document: SHELL WELCH RESIDENT Medical Necessity Reason Pt with a Central, PICC or Fol: Yes The following are medically ne: Central Line, Chin Catheter Subjective Review of Systems Patient is a 59 year old female with past medical history of CHF, Chronic obstructive pulmonary disease, GERD, hyperlipidemia who presented to hospital with chief complaints of shortness of breath. As per daughter patient had increased work of breathing, uses home oxygen 2 L, which was increased to 6 L at home for which saturation improved to 94%. Patient in the ER became altered and was intubated on 04/03/25. as per daughter echocardiogram showed 50% in [facility]. x-ray showed Stable chronic appearing bilateral interstitial pulmonary markings and mild bibasilar pulmonary airspace disease. Past surgical history: Tonsillectomy family history: reviewed, noncontributory Social history: per daughter patient has smoked since she was 15 years old and nicotine vape, used methamphetamine 04/11/25: Patient seen in ICU. on cpap trial, on pressure support control, pulling 400 ml volume Psupport 10 and Peep 5 mm hg. plan for cpap trial tomorrow. Objective vital signs Vital Sign Date Time Temp Pulse Resp B/P (MAP) Pulse Ox O2 Delivery O2 Flow Rate FiO2 04/11/25 14:19 96 23 136/82 (100) 96 30 04/11/25 12:00 97.4 97.4 04/11/25 12:00 Mechanical Ventilator+ Total Intake and Output 04/10/25 04/10/25 04/11/25 15:00 23:00 07:00 Intake Total 268.795 ml 71.480 ml 181.005 ml Output Total 375 ml 560 ml Balance 268.795 ml -303.520 ml -378.995 ml medications Current Medications Medications Dose Ordered Sig/Guy Route Start Time Stop Time Status Last Admin Dose Admin Famotidine 20 mg Q12HR IV 04/03/25 10:00 04/11/25 08:37 20 MG Docusate Sodium 100 mg BIDPRN PRN PO 04/02/25 23:15 Acetaminophen 650 mg Q6HP PRN PO 04/02/25 23:15 Nitroglycerin 0.4 mg Q5MINP PRN SL 04/03/25 00:00 Norepinephrine Bitartrate 250 ml @ 3.75 mls/hr Q24H IV 04/03/25 10:00 UNV Midazolam HCl 100 ml @ 1 mls/hr Q24H IV 04/03/25 10:00 04/08/25 03:45 3 MLS/HR Acetaminophen 650 mg Q6HP PRN PA 04/03/25 20:15 Fentanyl Citrate 250 ml @ 2.5 mls/hr Q24H IV 04/06/25 05:30 04/10/25 00:44 5 MLS/HR Fat Emulsion Intravenous 50 ml/ Sodium Chloride 40 meq/Potassium Chloride 20 meq/ Potassium Phosphate 44 meq/ Calcium Gluconate 2.3 meq/Magnesium Sulfate 8 meq/ Multivitamins 10 ml/Chromium/ Copper/Manganese/ Zinc 1 ml/Amino Acids/Dextrose/ Purified Water 1,047.9462 ml @ 44 mls/hr [id number] IV 04/06/25 22:00 04/06/25 22:00 Cancel Cefepime HCl 50 ml @ 12.5 mls/hr Q12HR@0600,1800 IV 04/07/25 06:00 04/11/25 06:09 12.5 MLS/HR Micafungin Sodium 100 mg/Sodium Chloride 100 ml @ 100 mls/hr DAILY IV 04/07/25 10:00 04/11/25 08:38 100 MLS/HR Doxycycline Hyclate 100 ml @ 50 mls/hr Q12H IV 04/06/25 14:45 04/11/25 14:09 50 MLS/HR Enteral Nutritional Formula 1,000 ml 40ML/HR GT 04/06/25 15:15 04/08/25 16:58 1,000 ML Amino Acid Protein 30 ml DAILY PO 04/07/25 10:00 04/11/25 08:44 30 ML Albuterol 2.5 mg Q8H NEB 04/07/25 14:00 04/11/25 14:36 2.5 MG Ipratropium [place] 0.5 mg Q8H NEB 04/07/25 14:00 04/11/25 14:36 0.5 MG Norepinephrine Bitartrate 250 ml @ 3.75 mls/hr Q24H IV 04/08/25 09:00 04/08/25 17:33 7.5 MLS/HR Polyethylene Glycol 17 gm DAILY PO 04/09/25 10:00 04/11/25 08:37 17 GM Methylprednisolone Sodium Succinate 40 mg Q8HR IV 04/09/25 14:00 04/11/25 14:09 40 MG Sodium Chloride 10 ml QSHIFT@10,22 IV 04/09/25 22:00 04/11/25 08:38 10 ML Examination General: Patient is intubated, sedated, is able to open her eyes HEENT: Normocephalic, atraumatic, moist mucous membranes Respiratory/pulmonary: diminished breath sounds bilaterally. Cardiovascular: Normal heart sounds S1 and S2 with no associated murmurs Abdomen: Abdomen nondistended, there is no pain to palpation in any of the abdominal quadrants, no palpable masses. Extremities: There is no peripheral edema present at the lower extremities. Peripheral Pulses: 3+ Radial (R). 3+ Radial (L). 3+ Dorsalis pedis (R). 3+ Dorsalis pedis(L) Skin: Multiple skin tears, no sacral wound present, Neurological: pupils are sluggish and anisocoric, left 3 mm right 2 mm laboratory and microbiology Laboratory Tests 04/11/25 02:56 Test 04/11/25 02:56 Range/Units Serum Glucose 93 74-106 mg/dL Microbiology Date/Time Source Procedure Growth Status 04/05/25 08:00 Nose MRSA Screen - Final Complete 04/03/25 10:00 Sputum Endotracheal Wash Gram Stain - Final Resulted 04/03/25 10:00 Sputum Endotracheal Wash Respiratory Culture - Preliminary Resulted 04/02/25 20:04 Blood Blood Culture - Final NO GROWTH AFTER 5 DAYS OF INCUBATION. Complete Problem List/Assessment/Plan Problem List/Assessment/Plan Neurology Acute metabolic/hypoxic encephalopathy likely due to COPD exacerbation - Mechanically ventilated, sedated: RASS score -3 - ventilator setting: on AC mode; RR 20,VT 350, Fio2-35%, PEEP-5 - neurology on board Cardiology Chronic diastolic Congestive heart failure - as per daughter EF of 50% Respiratory Sepsis likely due to below Acute on chronic hypoxic respiratory failure secondary to acute COPD exacerbation/ pneumonia Acute G +/- Bacterial PNA possible atelectasis - continue bronchodilators, - continue Solu-Medrol 40 mg BID - chest xray: Slight interval advancement of the endotracheal tube such that the tip now projects approximately 3.9 cm above the level of the vani. Remaining lines and tubes unchanged. Stable chronic appearing bilateral interstitial pulmonary markings and mild bibasilar pulmonary airspace disease - IV metronidazole, azithromycin changed to doxycycline, cefepime, micafungin - respiratory culture -showed for filamentous fungi -Chest CT showed lower lobe consolidation, multiple small foci, severe centrilobar Emphysema. GI/Liver Cachexia BMI 15.3 Severe protein malnutrition Slow transit constipation - Miralax Hematology Anemia of chronic disease Iron deficiency anemia Renal Electrolytes hyponatremia hypocalcemia hypophosphatemia - replete electrolytes - Monitor electrolytes Lines/tubes/devices Airway: Intubated via ETT on 04/03/25 Vascular access: Central line Rt IJ 04/05 and Rt femoral 04/03 Drips: Fentanyl, midazolam Diet: Vital HP DVT prophylaxis: Lovenox GI prophylaxis: Protonix patient was on CPAP trial. given recurring high pressure, plan CPAP trial tomorrow again. Goals of car discussed with family for more than 29 minutes : Full code Care plan updated to the family, critical time spent more than 79 minutes excluding procedures Case discussed with Dr. Tavo RN Plan discussed with: Other (RN) My Orders My Orders Orders - SHELL WELCH RESIDENT Procedure Category Date Status Time Cpap Trial For Am ORDERS 04/11/25 Transmitted 09:29 Dietary Evaluation Review Comments: 1) If patient remains NPO > 7 days, consider EN/TPN to meet at least 75% estimated daily needs 2) If gut is preferred, initiate Vital High Protein @ 40 mL/hr goal rate as tolerated. Flush with 50 mL free H2O Q6H. EN regimen will provide 960 kcals, 84g Pro, and 1003 mL free H2O (including TF flushes) per 24 hrs. Goal rate will meet ~ 95% estimated energy needs and ~ 93% estimated protein needs 3) Advance to cardiac diet when medically feasible, pending ST approval 4) Refer to outpatient RD for weight management 5) Follow-up with cardiology and pulmonology 6) Continue to monitor I&O, labs, and skin integrity Expected Outcomes/Goals: 1) patient to receive nutritional support within 7 days of NPO status 2) labs to improve 3) diet to advance 4) gradual wt gain 5) f/u in 2-3 days SHELL WELCH RESIDENT Apr 11, 2025 14:43
--- NOTE | 2025-04-11 19:42 | DVHPN2 ---
Progress Note - Dictate Date Seen: Apr 11, 2025 Medical Necessity Reason Pt with a Central, PICC or Fol: Yes The following are medically ne: Central Line, Chin Catheter Subjective Ms. Cedeno is a 59 years old female with a history of hypotension, dyslipidemia, congestive heart failure, COPD, GERD, anxiety, she was brought to the [facility] on 03/30/2025 with a chief complaint of shortness breath. I have seen and examined the patient in the ICU, I have discussed with her nurse, she is intubated, awake, she follows verbal commands, she use communication board to communicate The pupils are unequal today Pupil size: In the morning on 04/05/2025: Equal. Early afternoon: right: 3 mm, left: 5 mm. around 6:30PM, right: 2 mm, left: 3 mm, sluggish light reflexes 04/06/2025: Rt: 3, Lt: 3-4. 04/07/25: Rt: 2mm, Lt: 3mm 04/08/2025: Rt: 2mm, Lt: 3mm 04/08/2025: Rt: 2mm, Lt: 2mm 04/11/2025: Rt: 2mm, Lt: 4mm Versed 4 mg/hour, levo 4 mcg/minutes Blood culture, 04/02/2025: Negative UDS, 04/02/2025: Negative Plasma alcohol, 04/02/2025: <3 Urinalysis, 04/02/2025: WBC: 1, urine leukocyte esterase: Negative ABG, 04/05/2025: Carbon dioxide retention WBC/HB/PLT/MCV, 04/02/2025: 22.5/9.7/236/95.6, 04/03/2025: 71.9/10.8/245/96.3, 04/04/2025: 26.6/9.8/251/95.5, 04/06/2025: 14.5/8.8/278/93.6, 04/08/2025: 15.5/8.9/234/93.6 CMP, 04/04/2025: Unremarkable Chest x-ray, 04/02/2025: Patchy [id number]-left bibasilar opacities, favoring infection Chest x-ray 04/05/2025: 1. Endotracheal tube 5.8 cm above the vani 2. Right internal jugular catheter in place at the cavoatrial junction. 3. Enteric tube below the left diaphragm less likely in the stomach. 4. IMPROVING airspace disease right lower lobe. Chest x-ray, 04/08/2025: 1. No acute cardiopulmonary disease. 2. Lines and tubes unchanged. CT head, 04/05/2025:1. No evidence of acute intracranial abnormality. 2. Mild subcortical and periventricular low attenuation, nonspecific but most commonly associated with sequelae of chronic microvascular ischemic changes although other etiologies are not excluded. vital signs Vital Sign Date Time Temp Pulse Resp B/P (MAP) Pulse Ox O2 Delivery O2 Flow Rate FiO2 04/11/25 19:00 102 23 109/61 (77) 95 04/11/25 18:39 30 04/11/25 17:59 Mechanical Ventilator+ 04/11/25 16:00 97.5 97.5 Total Intake and Output 04/10/25 04/10/25 04/11/25 15:00 23:00 07:00 Intake Total 268.795 ml 71.480 ml 181.005 ml Output Total 375 ml 560 ml Balance 268.795 ml -303.520 ml -378.995 ml medications Current Medications Medications Dose Ordered Sig/Guy Route Start Time Stop Time Status Last Admin Dose Admin Famotidine 20 mg Q12HR IV 04/03/25 10:00 04/11/25 08:37 20 MG Docusate Sodium 100 mg BIDPRN PRN PO 04/02/25 23:15 Acetaminophen 650 mg Q6HP PRN PO 04/02/25 23:15 Nitroglycerin 0.4 mg Q5MINP PRN SL 04/03/25 00:00 Norepinephrine Bitartrate 250 ml @ 3.75 mls/hr Q24H IV 04/03/25 10:00 UNV Midazolam HCl 100 ml @ 1 mls/hr Q24H IV 04/03/25 10:00 04/08/25 03:45 3 MLS/HR Acetaminophen 650 mg Q6HP PRN MA 04/03/25 20:15 Fentanyl Citrate 250 ml @ 2.5 mls/hr Q24H IV 04/06/25 05:30 04/10/25 00:44 5 MLS/HR Fat Emulsion Intravenous 50 ml/ Sodium Chloride 40 meq/Potassium Chloride 20 meq/ Potassium Phosphate 44 meq/ Calcium Gluconate 2.3 meq/Magnesium Sulfate 8 meq/ Multivitamins 10 ml/Chromium/ Copper/Manganese/ Zinc 1 ml/Amino Acids/Dextrose/ Purified Water 1,047.9462 ml @ 44 mls/hr [id number] IV 04/06/25 22:00 04/06/25 22:00 Cancel Cefepime HCl 50 ml @ 12.5 mls/hr Q12HR@0600,1800 IV 04/07/25 06:00 04/11/25 18:20 12.5 MLS/HR Micafungin Sodium 100 mg/Sodium Chloride 100 ml @ 100 mls/hr DAILY IV 04/07/25 10:00 04/11/25 08:38 100 MLS/HR Doxycycline Hyclate 100 ml @ 50 mls/hr Q12H IV 04/06/25 14:45 04/11/25 14:09 50 MLS/HR Enteral Nutritional Formula 1,000 ml 40ML/HR GT 04/06/25 15:15 04/11/25 17:08 1,000 ML Amino Acid Protein 30 ml DAILY PO 04/07/25 10:00 04/11/25 08:44 30 ML Albuterol 2.5 mg Q8H NEB 04/07/25 14:00 04/11/25 14:36 2.5 MG Ipratropium [place] 0.5 mg Q8H NEB 04/07/25 14:00 04/11/25 14:36 0.5 MG Norepinephrine Bitartrate 250 ml @ 3.75 mls/hr Q24H IV 04/08/25 09:00 04/08/25 17:33 7.5 MLS/HR Polyethylene Glycol 17 gm DAILY PO 04/09/25 10:00 04/11/25 08:37 17 GM Sodium Chloride 10 ml QSHIFT@10,22 IV 04/09/25 22:00 04/11/25 08:38 10 ML Methylprednisolone Sodium Succinate 40 mg BID IV 04/11/25 22:00 objective The patient is well-nourished and well-developed with no distress. The patient is intubated MENTAL STATUS: Subjective CRANIAL NERVES: Pupils are round and reactive, no associated abnormal vascular dilatation and skin secretion. There are corneal reflexes and doll's eyes phenomenon. No signs of facial weakness. There are gagging or coughing reflexes during oral/airway care SENSATION: Responses to touch MOTOR: Normal tone in the upper and lower extremity. Normal muscle bulk. No fasciculations. Moves the arms and the legs REFLEXES: Deep tendon reflexes are symmetrical. No pathological reflexes. CEREBELLAR/COORDINATION: Deferred GAIT/STATION: deferred laboratory and microbiology Laboratory Tests 04/11/25 02:56 Test 04/11/25 02:56 Range/Units Serum Glucose 93 74-106 mg/dL Problem List Altered mental status, resolved Hypoxic encephalopathy Metabolic encephalopathy Toxic encephalopathy Acute on chronic respiratory failure Pneumoniae Leukocytosis/sepsis Anisocoria Etiology unclear Cachexia Assessment/Plan Monitoring Supportive treatment Follow-up lab Blood culture Stabilize vitals Respiratory support/vent management IV antibiotics Oxygen Midodrine Improving Consider CPAP trial/extubation again More recommendation per clinical course This medical document was created using an electronic medical record system with [employer] dictation system. Although this document has been carefully reviewed, there may still be some phonetic and typographical errors. These areas are purely typographical due to imperfections of the software programs, and do not reflect any compromise in the patient's medical care. Prognosis Guarded, poor Dietary Evaluation Review Comments: 1) If patient remains NPO > 7 days, consider EN/TPN to meet at least 75% estimated daily needs 2) If gut is preferred, initiate Vital High Protein @ 40 mL/hr goal rate as tolerated. Flush with 50 mL free H2O Q6H. EN regimen will provide 960 kcals, 84g Pro, and 1003 mL free H2O (including TF flushes) per 24 hrs. Goal rate will meet ~ 95% estimated energy needs and ~ 93% estimated protein needs 3) Advance to cardiac diet when medically feasible, pending ST approval 4) Refer to outpatient RD for weight management 5) Follow-up with cardiology and pulmonology 6) Continue to monitor I&O, labs, and skin integrity Expected Outcomes/Goals: 1) patient to receive nutritional support within 7 days of NPO status 2) labs to improve 3) diet to advance 4) gradual wt gain 5) f/u in 2-3 days Plan discussed with: Other RAMAN LAWTON MD Apr 11, 2025 19:42
[2025-04-11] MEDS: methylPREDNISolone SOD SUCC 40 MG/ML VL IV SCH (21:21)
--- NOTE | 2025-04-11 22:15 | DVHPN2 ---
Consult Progress Note Objective vital signs Vital Sign Date Time Temp Pulse Resp B/P (MAP) Pulse Ox O2 Delivery O2 Flow Rate FiO2 04/11/25 20:22 101 24 120/73 (89) 96 30 04/11/25 20:00 Mechanical Ventilator+ 04/11/25 16:00 97.5 97.5 Total Intake and Output 04/10/25 04/10/25 04/11/25 15:00 23:00 07:00 Intake Total 268.795 ml 71.480 ml 181.005 ml Output Total 375 ml 560 ml Balance 268.795 ml -303.520 ml -378.995 ml medications Current Medications Medications Dose Ordered Sig/Guy Route Start Time Stop Time Status Last Admin Dose Admin Famotidine 20 mg Q12HR IV 04/03/25 10:00 04/11/25 21:21 20 MG Docusate Sodium 100 mg BIDPRN PRN PO 04/02/25 23:15 Acetaminophen 650 mg Q6HP PRN PO 04/02/25 23:15 Nitroglycerin 0.4 mg Q5MINP PRN SL 04/03/25 00:00 Norepinephrine Bitartrate 250 ml @ 3.75 mls/hr Q24H IV 04/03/25 10:00 UNV Midazolam HCl 100 ml @ 1 mls/hr Q24H IV 04/03/25 10:00 04/08/25 03:45 3 MLS/HR Acetaminophen 650 mg Q6HP PRN MO 04/03/25 20:15 Fentanyl Citrate 250 ml @ 2.5 mls/hr Q24H IV 04/06/25 05:30 04/10/25 00:44 5 MLS/HR Fat Emulsion Intravenous 50 ml/ Sodium Chloride 40 meq/Potassium Chloride 20 meq/ Potassium Phosphate 44 meq/ Calcium Gluconate 2.3 meq/Magnesium Sulfate 8 meq/ Multivitamins 10 ml/Chromium/ Copper/Manganese/ Zinc 1 ml/Amino Acids/Dextrose/ Purified Water 1,047.9462 ml @ 44 mls/hr [id number] IV 04/06/25 22:00 04/06/25 22:00 Cancel Cefepime HCl 50 ml @ 12.5 mls/hr Q12HR@0600,1800 IV 04/07/25 06:00 04/11/25 18:20 12.5 MLS/HR Micafungin Sodium 100 mg/Sodium Chloride 100 ml @ 100 mls/hr DAILY IV 04/07/25 10:00 04/11/25 08:38 100 MLS/HR Doxycycline Hyclate 100 ml @ 50 mls/hr Q12H IV 04/06/25 14:45 04/11/25 14:09 50 MLS/HR Enteral Nutritional Formula 1,000 ml 40ML/HR GT 04/06/25 15:15 04/11/25 17:08 1,000 ML Amino Acid Protein 30 ml DAILY PO 04/07/25 10:00 04/11/25 08:44 30 ML Albuterol 2.5 mg Q8H NEB 04/07/25 14:00 04/11/25 22:08 2.5 MG Ipratropium [place] 0.5 mg Q8H NEB 04/07/25 14:00 04/11/25 22:08 0.5 MG Norepinephrine Bitartrate 250 ml @ 3.75 mls/hr Q24H IV 04/08/25 09:00 04/08/25 17:33 7.5 MLS/HR Polyethylene Glycol 17 gm DAILY PO 04/09/25 10:00 04/11/25 08:37 17 GM Sodium Chloride 10 ml QSHIFT@10,22 IV 04/09/25 22:00 04/11/25 21:21 10 ML Methylprednisolone Sodium Succinate 40 mg BID IV 04/11/25 22:00 04/11/25 21:21 40 MG laboratory and microbiology Laboratory Tests 04/11/25 02:56 Test 04/11/25 02:56 Range/Units Serum Glucose 93 74-106 mg/dL Problem List/Assessment/Plan Problem List/Assessment/Plan Today's Encounter Date: 04/06/2025 Patient Name: Pao Provider: Gordon Coley ASSESSMENT AND PLAN: ID Problem List: -Community-acquired pneumonia (CXR: patchy right > left opacities) -Septic shock (ICU transfer in the setting of pneumonia; BP 94/54 noted) -Acute on chronic respiratory failure with hypercapnia (pH 7.35, pCO2 83.1) requiring mechanical ventilation -Suspected COPD exacerbation related to pneumonia -Prolonged QTc (503 ms) fluoroquinolones avoided -Penicillin allergy (unknown reaction, since 2021) -Leukocytosis (WBC 22.5 K/L) -Anemia (Hgb 9.7 g/dL) -Hyponatremia (Na 133 mmol/L) -History of CHF, GERD, anxiety, hypertension, hyperlipidemia; chronic hypotension noted Assessment This is a 59 y.o. female with a past medical history of CHF, anxiety, COPD, GERD, hypertension, hyperlipidemia, and chronic hypotension who presents with shortness of breath and hypoxemia (desaturation to 70% on 6 L NC). ED CXR showed patchy right greater than left opacities favoring infection; admitted for pneumonia. Transferred to ICU for septic shock in the setting of pneumonia. Viral testing (influenza A/B, COVID-19) negative. UA without growth. Blood cultures no growth to date (04/05). ABG with hypercapnia (pH 7.35, pCO2 83.1). BNP 38.81. EKG with QTc 503 ms. Preliminary sputum culture with rare filamentous fungi (awaiting further results). The clinical picture is consistent with pneumonia with concurrent COPD exacerbation and hypercapnic respiratory failure requiring mechanical ventilation. 04/05: CXR with improved pneumonia, persistent fevers, improved levophed 04/06: prolonged qtc , fungi filamentous on cxr Plan: -Antimicrobials: -stop azithromycin and flagyl, swich to cefepime and doxycycline -start micafungin - test for cocci and aspergillus - agree with chest CT -Avoid fluoroquinolones due to prolonged QTc. -Follow up sputum culture results; adjust therapy per susceptibilities. -Follow up blood cultures; currently no growth to date (04/05). -Respiratory: -Mechanical ventilation management per rivet sticker team; current settings documented below. -Wean as tolerated to high-flow nasal cannula when appropriate. -COPD therapies per pulmonology: bronchodilators, systemic steroids, mucolytics. -Monitoring: -Monitor temperature curve; if persistent fevers, reassess antimicrobial coverage. -Repeat chest X-ray daily. -Maintain MAP > 65 mmHg; titrate vasoactive support as needed. -Monitor QTc; continue to avoid QT-prolonging agents where feasible. 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 -Diagnostics: -Recommend sputum culture (pending/follow-up). -Continue to monitor labs (CBC, BMP, lactate) and ABGs as clinically indicated. Authorized and Performed by: Gordon Coley Total critical care time: Approximately 76 minutes Due to a high probability of clinically significant, life threatening deterioration, the patient required my highest level of preparedness to intervene emergently and I personally spent this critical care time directly and personally managing the patient. This critical care time included obtaining a history; examining the patient; pulse oximetry; ordering and review of studies; arranging urgent treatment with development of a management plan; evaluation of patient's response to treatment; frequent reassessment; and, discussions with other providers. This critical care time was performed to assess and manage the high probability of imminent, life-threatening deterioration that could result in multi-organ failure. It was exclusive of separately billable procedures and treating other patients and teaching time. Isolation Precautions: Not provided in transcript. \ Physical Exam: General: NAD Neck: Supple. No masses. HEENT: PERRL. Normal lids and conjunctiva. Moist mucous membranes. Oropharynx without lesions, exudates or excessive erythema. Normal appearance of the external aspects of the nose and ears. Heart: Regular rhythm, normal rate. No murmur. No lower extremity edema. Lungs: Normal respiratory effort. Clear to auscultation bilaterally. Wheezes present. Patient is mechanically ventilated. Abdomen: Soft. Non-tender. Non-distended. No masses or abdominal hernia. Msk: No digital cyanosis. Normal strength and tone in all 4 limbs Skin: Warm and dry, no rashes. Neuro: Alert. No facial droop or slurred speech. Extra-ocular movements intact. Sensation intact to soft touch in all 4 limbs. Psych: Appropriate mood. Full affect. Oriented to person, place, time, and situation. Dietary Evaluation Review Comments: 1) If patient remains NPO > 7 days, consider EN/TPN to meet at least 75% estimated daily needs 2) If gut is preferred, initiate Vital High Protein @ 40 mL/hr goal rate as tolerated. Flush with 50 mL free H2O Q6H. EN regimen will provide 960 kcals, 84g Pro, and 1003 mL free H2O (including TF flushes) per 24 hrs. Goal rate will meet ~ 95% estimated energy needs and ~ 93% estimated protein needs 3) Advance to cardiac diet when medically feasible, pending ST approval 4) Refer to outpatient RD for weight management 5) Follow-up with cardiology and pulmonology 6) Continue to monitor I&O, labs, and skin integrity Expected Outcomes/Goals: 1) patient to receive nutritional support within 7 days of NPO status 2) labs to improve 3) diet to advance 4) gradual wt gain 5) f/u in 2-3 days GORDON COLEY MD Apr 11, 2025 22:15
--- NOTE | 2025-04-11 22:23 | DVHPN2 ---
Subjective DOS: 04/11/2025 Patient seen and examined at bedside. Intubated on mechanical ventilator. Overnight events reviewed. Changes from previous H/P or p: No Changes Eyes: No Pain, No Vision change, No Conjunctivae inflammation, No Eyelid inflammation, No Other, No Redness ENT: No Ear pain, No Ear discharge, No Nose pain, No Nose discharge, No Nose congestion, No Mouth pain, No Mouth swelling, No Throat pain, No Throat swelling, No Other Cardiovascular: No Chest Pain, No Palpitations, No Orthopnea, No Paroxysmal Noc. Dyspnea, No Edema, No Lt Headedness, No Other Respiratory: No Cough, No Dry; Shortness of breath; No SOB with excertion, No Wheezing, No Hemoptysis, No Pleuritic Pain, No Sputum; Other (SOB at rest) Gastrointestinal: No Nausea, No Vomiting, No Abdominal Pain, No Diarrhea, No Constipation, No Melena, No Hematochezia, No Other Genitourinary: No Dysuria, No Frequency, No Incontinence, No Hematuria, No Retention, No Other Musculoskeletal: No other, No neck pain, No shoulder pain, No arm pain, No back pain, No hand pain, No leg pain, No foot pain Skin: No Rash, No Lesions, No Jaundice, No Bruising, No Other Objective Vitals Vital Signs Date Time Temp Pulse Resp B/P (MAP) Pulse Ox O2 Delivery O2 Flow Rate FiO2 04/11/25 22:14 95 21 103/64 (77) 95 30 04/11/25 22:00 Mechanical Ventilator+ 04/11/25 16:00 97.5 97.5 Intake/Output Intake and Output 04/11/25 07:00 Intake Total 521.280 ml Output Total 935 ml Balance -413.720 ml Intake Oral 0 ml IV Total 521.280 ml Output Urine Total 935 ml # Bowel Movements 1 Exam Gen.: Patient lying in bed in medical ICU. Intubated on mechanical ventilator. Head: Normocephalic, atraumatic. Eyes: Pupils anisocoric. Ears: Normal external anatomy. Throat: Endotracheal tube and orogastric tube in place. Neck: Supple, trachea midline. Chest: Transmitted breath sounds bilaterally. Decreased air entry bilaterally. No wheezing. Bibasilar crackles. Cardiovascular: Positive S1, positive S2. Regular rate and rhythm. Abdomen: Positive bowel sounds in all 4 quadrants. Soft, nontender, nondistended. : Chin in place. Normal external genitalia. Rectal: Deferred. Skin: Warm, dry. Multiple skin tears Extremities: 2+ radial pulses bilaterally. No lower extremity edema. Neuro: Off sedation. Opens eyes, not following commands Medications Current Medications Medications Dose Ordered Sig/Guy Route Start Time Stop Time Status Last Admin Dose Admin Famotidine 20 mg Q12HR IV 04/03/25 10:00 04/11/25 21:21 20 MG Docusate Sodium 100 mg BIDPRN PRN PO 04/02/25 23:15 Acetaminophen 650 mg Q6HP PRN PO 04/02/25 23:15 Nitroglycerin 0.4 mg Q5MINP PRN SL 04/03/25 00:00 Norepinephrine Bitartrate 250 ml @ 3.75 mls/hr Q24H IV 04/03/25 10:00 UNV Midazolam HCl 100 ml @ 1 mls/hr Q24H IV 04/03/25 10:00 04/08/25 03:45 3 MLS/HR Acetaminophen 650 mg Q6HP PRN AR 04/03/25 20:15 Fentanyl Citrate 250 ml @ 2.5 mls/hr Q24H IV 04/06/25 05:30 04/10/25 00:44 5 MLS/HR Fat Emulsion Intravenous 50 ml/ Sodium Chloride 40 meq/Potassium Chloride 20 meq/ Potassium Phosphate 44 meq/ Calcium Gluconate 2.3 meq/Magnesium Sulfate 8 meq/ Multivitamins 10 ml/Chromium/ Copper/Manganese/ Zinc 1 ml/Amino Acids/Dextrose/ Purified Water 1,047.9462 ml @ 44 mls/hr [id number] IV 04/06/25 22:00 04/06/25 22:00 Cancel Cefepime HCl 50 ml @ 12.5 mls/hr Q12HR@0600,1800 IV 04/07/25 06:00 04/11/25 18:20 12.5 MLS/HR Micafungin Sodium 100 mg/Sodium Chloride 100 ml @ 100 mls/hr DAILY IV 04/07/25 10:00 04/11/25 08:38 100 MLS/HR Doxycycline Hyclate 100 ml @ 50 mls/hr Q12H IV 04/06/25 14:45 04/11/25 14:09 50 MLS/HR Enteral Nutritional Formula 1,000 ml 40ML/HR GT 04/06/25 15:15 04/11/25 17:08 1,000 ML Amino Acid Protein 30 ml DAILY PO 04/07/25 10:00 04/11/25 08:44 30 ML Albuterol 2.5 mg Q8H NEB 04/07/25 14:00 04/11/25 22:08 2.5 MG Ipratropium [place] 0.5 mg Q8H NEB 04/07/25 14:00 04/11/25 22:08 0.5 MG Norepinephrine Bitartrate 250 ml @ 3.75 mls/hr Q24H IV 04/08/25 09:00 04/08/25 17:33 7.5 MLS/HR Polyethylene Glycol 17 gm DAILY PO 04/09/25 10:00 04/11/25 08:37 17 GM Sodium Chloride 10 ml QSHIFT@10,22 IV 04/09/25 22:00 04/11/25 21:21 10 ML Methylprednisolone Sodium Succinate 40 mg BID IV 04/11/25 22:00 04/11/25 21:21 40 MG Laboratory Results Laboratory Tests 04/11/25 02:56 Chemistry Test 04/11/25 02:56 Albumin 2.8 g/dL (3.2-4.8) L Calcium Level 8.6 mg/dL (8.7-10.4) L Magnesium Level 1.8 mg/dL (1.6-2.6) Total Protein 4.5 g/dL (5.7-8.2) L LFT Test 04/11/25 02:56 Alanine Aminotransferase (ALT) 32 U/L (7-40) Alkaline Phosphatase 60 U/L (46-116) Aspartate Amino Transferase (AST) 28 U/L (13-40) Total Bilirubin 0.6 mg/dL (0.2-1.0) Urinalysis Test 04/02/25 20:38 Urine Color Yellow (Yellow) Urine Clarity Clear (Clear) Urine pH 5.5 (5.0-9.0) Urine Specific [place] 1.015 (1.001-1.035) Urine Protein Trace (Negative) H Urine Ketones Negative (Negative) Urine Blood Negative /uL (Negative) Urine Nitrite Negative (Negative) Urine Bilirubin Negative (Negative) Urine Urobilinogen Normal mg/dL (Negative) Urine Leukocyte Esterase Negative /uL (Negative) Urine RBC 1 /hpf (0 - 4) Urine Microscopic WBC 1 /HPF (0-5) Urine Squamous Epithelial Cells None seen /hpf (<5) Urine Bacteria None seen /hpf (None Seen) Urine Mucus Few (None Seen) Urine Glucose Normal mg/dL (Normal) Blood Gas Results Test 04/11/25 07:00 Arterial Blood pH 7.474 (7.350-7.450) FiO2 % 30.0 Microbiology Microbiology Date/Time Source Procedure Growth Status 04/05/25 08:00 Nose MRSA Screen - Final Complete 04/03/25 10:00 Sputum Endotracheal Wash Gram Stain - Final Resulted 04/03/25 10:00 Sputum Endotracheal Wash Respiratory Culture - Preliminary Resulted 04/02/25 20:04 Blood Blood Culture - Final NO GROWTH AFTER 5 DAYS OF INCUBATION. Complete Assessment/Plan Assessment/Plan Impression: Acute hypoxic respiratory failure On mechanical ventilator Acute COPD exacerbation Congestive heart failure Atelectasis Leukocytosis Cachexia, BMI 16.5 Events: Patient seen and examined at bedside. Patient is able to open her eyes but is not able to communicate. On CPAP trial Patient with apneic episodes - not pulling good volumes. Off Levophed currently On Precedex drip MRI pending. CPAP with PS 16, PEEP 5 OK to increase PS to max 20 cmH2O to achieve tidal volume 400-500 mL. Continue bronchodilators. Continue antibiotics - doxycycline, cefepime Continue antifungal -micafungin. Follow up cultures Continue steroids Monitor blood pressure Goals of care - Discussed with daughter about possible tracheostomy. Labs and imaging reviewed. Rest of plan as noted below. Plan: s/p intubation on mechanical ventilator. On AC mode; RR 20, VT 350, PEEP 5, FiO2 35% Titrate FIO2 to keep O2 saturation above 90%. VAP bundle. Daily ABG and CXR while intubated Continue bronchodilators. Continue antibiotics Monitor WBC - trended up at 12.8 K Continue steroids Pressors as necessary for hemodynamic support. Titrate to keep MAP greater than 65 mmHg. Follow up Cardiology recs Monitor hemoglobin - currently 8.8 g/dL Transfuse if less than 7.0 g/dL. Monitor renal function. Monitor electrolytes. Supplement as necessary. Monitor ins and outs. GI/DVT prophylaxis. Prognosis: Poor given patient's multiple co-morbidities. Condition: Critical Rest of plan per hospitalist and other consultants. A total of 35 minutes of critical care time was spent reviewing the patient record, examining the patient, making a diagnostic and therapeutic plan, discussing this plan with the medical personnel, following up on diagnostic studies and following the patient for clinical stability excluding any and all procedures. At least 50% of this time was spent in direct, [id number] contact. Thank you, Dr. Hunter, for allowing me to participate in this patient's care. Further recommendations will depend on the patient's clinical course. Please do not hesitate to contact me if you have any questions or concerns. This medical document was created using an electronic medical record system with [employer] dictation system. Although these documentations are being carefully reviewed, there may still be some phonetic and typographical changes. The errors are purely typographical, due to imperfection on the software program, and do not reflect any compromise in the patient's medical care. Plan discussed with: Other (RN) Visit Coding Pulmonary Billing Provider: LIDIA KLEIN MD Date of Service if different f: Apr 11, 2025 Common Visit Codes: 90078-[id number] INP/OBS CARE(HIGH), 37561-[id number] CARE 30-74 MIN LIDIA KLEIN MD Apr 11, 2025 22:23
[2025-04-12] VITALS (110 sets, daily range): BP systolic 81–140; BP diastolic 43–112; PULSE 60–118; RESP 12–29; TEMP 98–99.3; O2SAT 85–100
[2025-04-12 04:44] LABS: Hematocrit 24.7 % (36.0-46.0); Hemoglobin 8.4 g/dL (12.2-16.2); Mean Corpuscular Hemoglobin 31.7 pg (28.0-32.0); Mean Corpuscular Volume 93.1 fL (80.0-100.0); Nucleated Red Blood Cells % 0.0 %
--- NOTE | 2025-04-12 04:57 | DVH ---
CHEST RADIOGRAPH Indication: on vent Technique: Single frontal view of the chest was obtained Comparison: XY CHEST XRAY 1 VIEW on DOS: 04/11/25, XY CHEST XRAY 1 VIEW on DOS: 04/10/25, XY CHEST XRA Y 1 VIEW on DOS: 04/09/25 IMPRESSION: Support lines and tubes appear unchanged in satisfactory position. The lungs appear relatively clear . No discrete pneumothorax. No significant interval change.
[2025-04-12 05:02] LABS: Chloride 100 mmol/L (98-107); Potassium 3.8 mmol/L (3.5-5.1); Sodium 142 mmol/L (136-145)
[2025-04-12 05:03] LABS: Anion Gap 8 (5-15)
[2025-04-12 05:08] LABS: BUN/Creatinine Ratio 68.1 (10.0-20.0)
[2025-04-12 05:19] LABS: Blood Urea Nitrogen 32 mg/dL (9-23); Calcium 8.3 mg/dL (8.7-10.4); Carbon Dioxide 34 mmol/L (20-31); Glucose 118 mg/dL (74-106)
[2025-04-12 07:14] LABS: Base Excess 7.6 mmol/L (-2.0-3.0)
--- NOTE | 2025-04-12 15:08 | DVHPNRES ---
Progress Note Date Seen: Apr 12, 2025 Resident Creating Document: CRICKET GUAMAN RESIDENT Medical Necessity Reason Pt with a Central, PICC or Fol: Yes The following are medically ne: Central Line, Chin Catheter Subjective Review of Systems Patient is a 59 year old female with past medical history of CHF, Chronic obstructive pulmonary disease, GERD, hyperlipidemia who presented to hospital with chief complaints of shortness of breath. As per daughter patient had increased work of breathing, uses home oxygen 2 L, which was increased to 6 L at home for which saturation improved to 94%. Patient in the ER became altered and was intubated on 04/03/25. as per daughter echocardiogram showed 50% in [facility]. x-ray showed Stable chronic appearing bilateral interstitial pulmonary markings and mild bibasilar pulmonary airspace disease. Past surgical history: Tonsillectomy family history: reviewed, noncontributory Social history: per daughter patient has smoked since she was 15 years old and nicotine vape, used methamphetamine 04/11/25: Patient seen in ICU. on cpap trial, on pressure support control, pulling 400 ml volume Psupport 10 and Peep 5 mm hg. plan for cpap trial tomorrow. 04/12/25: Patient seen in ICU. CPAP trial failed. NIf -13. we will try again tomorrow. Objective vital signs Vital Sign Date Time Temp Pulse Resp B/P (MAP) Pulse Ox O2 Delivery O2 Flow Rate FiO2 04/12/25 14:45 99.3 106 21 102/43 (62) 97 99.3 04/12/25 13:55 30 04/12/25 13:43 Mechanical Ventilator+ Total Intake and Output 04/11/25 04/11/25 04/12/25 15:00 23:00 07:00 Intake Total 228.64 ml 133.275 ml 115.230 ml Output Total 450 ml 450 ml Balance 228.64 ml -316.725 ml -334.770 ml medications Current Medications Medications Dose Ordered Sig/Guy Route Start Time Stop Time Status Last Admin Dose Admin Famotidine 20 mg Q12HR IV 04/03/25 10:00 04/12/25 07:57 20 MG Docusate Sodium 100 mg BIDPRN PRN PO 04/02/25 23:15 Acetaminophen 650 mg Q6HP PRN PO 04/02/25 23:15 04/12/25 14:27 650 MG Nitroglycerin 0.4 mg Q5MINP PRN SL 04/03/25 00:00 Norepinephrine Bitartrate 250 ml @ 3.75 mls/hr Q24H IV 04/03/25 10:00 UNV Midazolam HCl 100 ml @ 1 mls/hr Q24H IV 04/03/25 10:00 04/08/25 03:45 3 MLS/HR Acetaminophen 650 mg Q6HP PRN [place] 04/03/25 20:15 Fentanyl Citrate 250 ml @ 2.5 mls/hr Q24H IV 04/06/25 05:30 04/10/25 00:44 5 MLS/HR Fat Emulsion Intravenous 50 ml/ Sodium Chloride 40 meq/Potassium Chloride 20 meq/ Potassium Phosphate 44 meq/ Calcium Gluconate 2.3 meq/Magnesium Sulfate 8 meq/ Multivitamins 10 ml/Chromium/ Copper/Manganese/ Zinc 1 ml/Amino Acids/Dextrose/ Purified Water 1,047.9462 ml @ 44 mls/hr [id number] IV 04/06/25 22:00 04/06/25 22:00 Cancel Cefepime HCl 50 ml @ 12.5 mls/hr Q12HR@0600,1800 IV 04/07/25 06:00 04/12/25 05:53 12.5 MLS/HR Micafungin Sodium 100 mg/Sodium Chloride 100 ml @ 100 mls/hr DAILY IV 04/07/25 10:00 04/12/25 07:58 100 MLS/HR Doxycycline Hyclate 100 ml @ 50 mls/hr Q12H IV 04/06/25 14:45 04/12/25 14:27 50 MLS/HR Enteral Nutritional Formula 1,000 ml 40ML/HR GT 04/06/25 15:15 04/11/25 17:08 1,000 ML Amino Acid Protein 30 ml DAILY PO 04/07/25 10:00 04/12/25 07:57 30 ML Albuterol 2.5 mg Q8H NEB 04/07/25 14:00 04/12/25 13:41 2.5 MG Ipratropium [place] 0.5 mg Q8H NEB 04/07/25 14:00 04/12/25 13:41 0.5 MG Norepinephrine Bitartrate 250 ml @ 3.75 mls/hr Q24H IV 04/08/25 09:00 04/08/25 17:33 7.5 MLS/HR Polyethylene Glycol 17 gm DAILY PO 04/09/25 10:00 04/11/25 08:37 17 GM Sodium Chloride 10 ml QSHIFT@10,22 IV 04/09/25 22:00 04/12/25 07:57 10 ML Methylprednisolone Sodium Succinate 40 mg BID IV 04/11/25 22:00 04/12/25 07:57 40 MG Examination Patient lying in bed General: Patient is alert, following commands HEENT: Normocephalic, atraumatic, moist mucous membranes Respiratory/pulmonary: diminished breath sounds bilaterally. Cardiovascular: Normal heart sounds S1 and S2 with no associated murmurs Abdomen: Abdomen nondistended, there is no pain to palpation in any of the abdominal quadrants, no palpable masses. Extremities: There is no peripheral edema present at the lower extremities. Peripheral Pulses: 3+ Radial (R). 3+ Radial (L). 3+ Dorsalis pedis (R). 3+ Dorsalis pedis(L) Skin: Multiple skin tears, no sacral wound present, Neurological: Pupils reactive, gag and cough reflex present laboratory and microbiology Laboratory Tests 04/12/25 03:10 Test 04/12/25 03:10 Range/Units Serum Glucose 118 H 74-106 mg/dL Microbiology Date/Time Source Procedure Growth Status 04/05/25 08:00 Nose MRSA Screen - Final Complete 04/03/25 10:00 Sputum Endotracheal Wash Gram Stain - Final Resulted 04/03/25 10:00 Sputum Endotracheal Wash Respiratory Culture - Preliminary Resulted 04/02/25 20:04 Blood Blood Culture - Final NO GROWTH AFTER 5 DAYS OF INCUBATION. Complete Problem List/Assessment/Plan Problem List/Assessment/Plan Neurology Acute metabolic/hypoxic encephalopathy likely due to COPD exacerbation - Mechanically ventilated, sedated: RASS score -3 - ventilator setting: on AC mode; RR 20,VT 350, Fio2-35%, PEEP-5 - neurology on board - Ordered MRI of head and Neck, MRA angio of neck Cardiology Chronic diastolic Congestive heart failure - as per daughter EF of 50% Respiratory Sepsis likely due to below Acute on chronic hypoxic respiratory failure secondary to acute COPD exacerbation/ pneumonia Acute G +/- Bacterial PNA possible atelectasis - continue bronchodilators, - continue Solu-Medrol 40 mg - chest xray: Slight interval advancement of the endotracheal tube such that the tip now projects approximately 3.9 cm above the level of the vani. Remaining lines and tubes unchanged. Stable chronic appearing bilateral interstitial pulmonary markings and mild bibasilar pulmonary airspace disease - IV metronidazole, azithromycin changed to doxycycline, cefepime, micafungin - respiratory culture -showed for filamentous fungi -Chest CT showed lower lobe consolidation, multiple small foci, severe centrilobar Emphysema. GI/Liver Cachexia BMI 15.3 Severe protein malnutrition Slow transit constipation - Miralax Hematology Anemia of chronic disease Iron deficiency anemia Renal Electrolytes hyponatremia hypocalcemia hypophosphatemia - replete electrolytes - Monitor electrolytes Lines/tubes/devices Airway: Intubated via ETT on 04/03/25 Vascular access: Central line Rt IJ 04/05 and Rt femoral 04/03 Drips: Fentanyl, midazolam Diet: Vital HP DVT prophylaxis: Lovenox GI prophylaxis: Protonix Great discussion taken place with Daughter for 37 mins about patients condition and poor prognosis, and possible Tracheostomy. Goals of car discussed with family for more than 29 minutes : Full code Care plan updated to the family, critical time spent more than 84 minutes excluding procedures Case discussed with Dr. Vo , RN Plan discussed with: Daughter Dietary Evaluation Review Comments: 1) If patient remains NPO > 7 days, consider EN/TPN to meet at least 75% estimated daily needs 2) If gut is preferred, initiate Vital High Protein @ 40 mL/hr goal rate as tolerated. Flush with 50 mL free H2O Q6H. EN regimen will provide 960 kcals, 84g Pro, and 1003 mL free H2O (including TF flushes) per 24 hrs. Goal rate will meet ~ 95% estimated energy needs and ~ 93% estimated protein needs 3) Advance to cardiac diet when medically feasible, pending ST approval 4) Refer to outpatient RD for weight management 5) Follow-up with cardiology and pulmonology 6) Continue to monitor I&O, labs, and skin integrity Expected Outcomes/Goals: 1) patient to receive nutritional support within 7 days of NPO status 2) labs to improve 3) diet to advance 4) gradual wt gain 5) f/u in 2-3 days CRICKET GUAMAN RESIDENT Apr 12, 2025 15:08
--- NOTE | 2025-04-12 17:08 | DVHPN2 ---
Progress Note - Dictate Date Seen: Apr 12, 2025 Medical Necessity Reason Pt with a Central, PICC or Fol: Yes The following are medically ne: Central Line, Chin Catheter Subjective Ms. Cedeno is a 59 years old female with a history of hypotension, dyslipidemia, congestive heart failure, COPD, GERD, anxiety, she was brought to the [facility] on 03/30/2025 with a chief complaint of shortness breath. I have seen and examined the patient in the ICU, I have discussed with her nurse, she is intubated, awake, she follows verbal commands, she use communication board to communicate The pupils are unequal today Extubation attempted but failed Pupil size: In the morning on 04/05/2025: Equal. Early afternoon: right: 3 mm, left: 5 mm. around 6:30PM, right: 2 mm, left: 3 mm, sluggish light reflexes 04/06/2025: Rt: 3, Lt: 3-4. 04/07/25: Rt: 2mm, Lt: 3mm 04/08/2025: Rt: 2mm, Lt: 3mm 04/08/2025: Rt: 2mm, Lt: 2mm 04/11/2025: Rt: 2mm, Lt: 4mm 04/12/2025: Rt: 2mm, Lt: 4mm Blood culture, 04/02/2025: Negative UDS, 04/02/2025: Negative Plasma alcohol, 04/02/2025: <3 Urinalysis, 04/02/2025: WBC: 1, urine leukocyte esterase: Negative ABG, 04/05/2025: Carbon dioxide retention WBC/HB/PLT/MCV, 04/02/2025: 22.5/9.7/236/95.6, 04/03/2025: 71.9/10.8/245/96.3, 04/04/2025: 26.6/9.8/251/95.5, 04/06/2025: 14.5/8.8/278/93.6, 04/08/2025: 15.5/8.9/234/93.6 CMP, 04/04/2025: Unremarkable Chest x-ray, 04/02/2025: Patchy [id number]-[id number]-left bibasilar opacities, favoring infection Chest x-ray 04/05/2025: 1. Endotracheal tube 5.8 cm above the vani 2. Right internal jugular catheter in place at the cavoatrial junction. 3. Enteric tube below the left diaphragm less likely in the stomach. 4. IMPROVING airspace disease right lower lobe. Chest x-ray, 04/08/2025: 1. No acute cardiopulmonary disease. 2. Lines and tubes unchanged. CT head, 04/05/2025:1. No evidence of acute intracranial abnormality. 2. Mild subcortical and periventricular low attenuation, nonspecific but most commonly associated with sequelae of chronic microvascular ischemic changes although other etiologies are not excluded. vital signs Vital Sign Date Time Temp Pulse Resp B/P (MAP) Pulse Ox O2 Delivery O2 Flow Rate FiO2 04/12/25 16:15 104 23 106/59 (75) 99 04/12/25 15:57 30 04/12/25 15:42 Mechanical Ventilator+ 04/12/25 14:45 99.3 99.3 Total Intake and Output 04/11/25 04/11/25 04/12/25 15:00 23:00 07:00 Intake Total 228.64 ml 133.275 ml 115.230 ml Output Total 450 ml 450 ml Balance 228.64 ml -316.725 ml -334.770 ml medications Current Medications Medications Dose Ordered Sig/Guy Route Start Time Stop Time Status Last Admin Dose Admin Famotidine 20 mg Q12HR IV 04/03/25 10:00 04/12/25 07:57 20 MG Docusate Sodium 100 mg BIDPRN PRN PO 04/02/25 23:15 Acetaminophen 650 mg Q6HP PRN PO 04/02/25 23:15 04/12/25 14:27 650 MG Nitroglycerin 0.4 mg Q5MINP PRN SL 04/03/25 00:00 Norepinephrine Bitartrate 250 ml @ 3.75 mls/hr Q24H IV 04/03/25 10:00 UNV Midazolam HCl 100 ml @ 1 mls/hr Q24H IV 04/03/25 10:00 04/08/25 03:45 3 MLS/HR Acetaminophen 650 mg Q6HP PRN [place] 04/03/25 20:15 Fentanyl Citrate 250 ml @ 2.5 mls/hr Q24H IV 04/06/25 05:30 04/10/25 00:44 5 MLS/HR Fat Emulsion Intravenous 50 ml/ Sodium Chloride 40 meq/Potassium Chloride 20 meq/ Potassium Phosphate 44 meq/ Calcium Gluconate 2.3 meq/Magnesium Sulfate 8 meq/ Multivitamins 10 ml/Chromium/ Copper/Manganese/ Zinc 1 ml/Amino Acids/Dextrose/ Purified Water 1,047.9462 ml @ 44 mls/hr [id number] IV 04/06/25 22:00 04/06/25 22:00 Cancel Cefepime HCl 50 ml @ 12.5 mls/hr Q12HR@0600,1800 IV 04/07/25 06:00 04/12/25 05:53 12.5 MLS/HR Micafungin Sodium 100 mg/Sodium Chloride 100 ml @ 100 mls/hr DAILY IV 04/07/25 10:00 04/12/25 07:58 100 MLS/HR Doxycycline Hyclate 100 ml @ 50 mls/hr Q12H IV 04/06/25 14:45 04/12/25 14:27 50 MLS/HR Enteral Nutritional Formula 1,000 ml 40ML/HR GT 04/06/25 15:15 04/11/25 17:08 1,000 ML Amino Acid Protein 30 ml DAILY PO 04/07/25 10:00 04/12/25 07:57 30 ML Albuterol 2.5 mg Q8H NEB 04/07/25 14:00 04/12/25 13:41 2.5 MG Ipratropium [place] 0.5 mg Q8H NEB 04/07/25 14:00 04/12/25 13:41 0.5 MG Norepinephrine Bitartrate 250 ml @ 3.75 mls/hr Q24H IV 04/08/25 09:00 04/08/25 17:33 7.5 MLS/HR Polyethylene Glycol 17 gm DAILY PO 04/09/25 10:00 04/11/25 08:37 17 GM Sodium Chloride 10 ml QSHIFT@10,22 IV 04/09/25 22:00 04/12/25 07:57 10 ML Methylprednisolone Sodium Succinate 40 mg BID IV 04/11/25 22:00 04/12/25 07:57 40 MG objective The patient is well-nourished and well-developed with no distress. The patient is intubated MENTAL STATUS: Subjective CRANIAL NERVES: Pupils are round and reactive, no associated abnormal vascular dilatation and skin secretion. There are corneal reflexes and doll's eyes phenomenon. No signs of facial weakness. There are gagging or coughing reflexes during oral/airway care SENSATION: Responses to touch MOTOR: Normal tone in the upper and lower extremity. Normal muscle bulk. No fasciculations. Moves the arms and the legs REFLEXES: Deep tendon reflexes are symmetrical. No pathological reflexes. CEREBELLAR/COORDINATION: No ataxia GAIT/STATION: deferred laboratory and microbiology Laboratory Tests 04/12/25 03:10 Test 04/12/25 03:10 Range/Units Serum Glucose 118 H 74-106 mg/dL Problem List Altered mental status, resolved Hypoxic encephalopathy Metabolic encephalopathy Toxic encephalopathy Acute on chronic respiratory failure Pneumoniae Leukocytosis/sepsis Anisocoria Etiology unclear Cachexia Assessment/Plan Monitoring Supportive treatment Follow-up lab Blood culture Stabilize vitals Respiratory support/vent management IV antibiotics Oxygen Midodrine Improving Consider CPAP trial/extubation again More recommendation per clinical course This medical document was created using an electronic medical record system with [employer] dictation system. Although this document has been carefully reviewed, there may still be some phonetic and typographical errors. These areas are purely typographical due to imperfections of the software programs, and do not reflect any compromise in the patient's medical care. Prognosis Guarded, poor Dietary Evaluation Review Comments: 1) If patient remains NPO > 7 days, consider EN/TPN to meet at least 75% estimated daily needs 2) If gut is preferred, initiate Vital High Protein @ 40 mL/hr goal rate as tolerated. Flush with 50 mL free H2O Q6H. EN regimen will provide 960 kcals, 84g Pro, and 1003 mL free H2O (including TF flushes) per 24 hrs. Goal rate will meet ~ 95% estimated energy needs and ~ 93% estimated protein needs 3) Advance to cardiac diet when medically feasible, pending ST approval 4) Refer to outpatient RD for weight management 5) Follow-up with cardiology and pulmonology 6) Continue to monitor I&O, labs, and skin integrity Expected Outcomes/Goals: 1) patient to receive nutritional support within 7 days of NPO status 2) labs to improve 3) diet to advance 4) gradual wt gain 5) f/u in 2-3 days Plan discussed with: RAMAN Perkins MD Apr 12, 2025 17:08
[2025-04-12] MEDS ORDERED: ONDANSETRON HCL 4 MG/2 ML VIAL IV PRN (22:45)
--- NOTE | 2025-04-12 23:49 | DVHPN2 ---
Subjective DOS: 04/12/2025 Patient seen and examined at bedside. Intubated on mechanical ventilator. Overnight events reviewed. Changes from previous H/P or p: No Changes Eyes: No Pain, No Vision change, No Conjunctivae inflammation, No Eyelid inflammation, No Other, No Redness ENT: No Ear pain, No Ear discharge, No Nose pain, No Nose discharge, No Nose congestion, No Mouth pain, No Mouth swelling, No Throat pain, No Throat swelling, No Other Cardiovascular: No Chest Pain, No Palpitations, No Orthopnea, No Paroxysmal Noc. Dyspnea, No Edema, No Lt Headedness, No Other Respiratory: No Cough, No Dry; Shortness of breath; No SOB with excertion, No Wheezing, No Hemoptysis, No Pleuritic Pain, No Sputum; Other (SOB at rest) Gastrointestinal: No Nausea, No Vomiting, No Abdominal Pain, No Diarrhea, No Constipation, No Melena, No Hematochezia, No Other Genitourinary: No Dysuria, No Frequency, No Incontinence, No Hematuria, No Retention, No Other Musculoskeletal: No other, No neck pain, No shoulder pain, No arm pain, No back pain, No hand pain, No leg pain, No foot pain Skin: No Rash, No Lesions, No Jaundice, No Bruising, No Other Objective Vitals Vital Signs Date Time Temp Pulse Resp B/P (MAP) Pulse Ox O2 Delivery O2 Flow Rate FiO2 04/12/25 21:54 100 24 128/69 (88) 98 30 04/12/25 20:00 Mechanical Ventilator+ 04/12/25 20:00 98.6 98.6 Intake/Output Intake and Output 04/12/25 07:00 Intake Total 477.145 ml Output Total 900 ml Balance -422.855 ml Intake Oral 90 ml IV Total 357.145 ml Tube Feeding 30 ml Output Urine Total 900 ml Exam Gen.: Patient lying in bed in medical ICU. Intubated on mechanical ventilator. Head: Normocephalic, atraumatic. Eyes: Pupils anisocoric. Ears: Normal external anatomy. Throat: Endotracheal tube and orogastric tube in place. Neck: Supple, trachea midline. Chest: Transmitted breath sounds bilaterally. Decreased air entry bilaterally. No wheezing. Bibasilar crackles. Cardiovascular: Positive S1, positive S2. Regular rate and rhythm. Abdomen: Positive bowel sounds in all 4 quadrants. Soft, nontender, nondistended. : Chin in place. Normal external genitalia. Rectal: Deferred. Skin: Warm, dry. Multiple skin tears Extremities: 2+ radial pulses bilaterally. No lower extremity edema. Neuro: Off sedation. Awake, alert, following commands Medications Current Medications Medications Dose Ordered Sig/Guy Route Start Time Stop Time Status Last Admin Dose Admin Famotidine 20 mg Q12HR IV 04/03/25 10:00 04/12/25 21:47 20 MG Docusate Sodium 100 mg BIDPRN PRN PO 04/02/25 23:15 Acetaminophen 650 mg Q6HP PRN PO 04/02/25 23:15 04/12/25 14:27 650 MG Nitroglycerin 0.4 mg Q5MINP PRN SL 04/03/25 00:00 Norepinephrine Bitartrate 250 ml @ 3.75 mls/hr Q24H IV 04/03/25 10:00 UNV Midazolam HCl 100 ml @ 1 mls/hr Q24H IV 04/03/25 10:00 04/08/25 03:45 3 MLS/HR Acetaminophen 650 mg Q6HP PRN ND 04/03/25 20:15 Fentanyl Citrate 250 ml @ 2.5 mls/hr Q24H IV 04/06/25 05:30 04/10/25 00:44 5 MLS/HR Fat Emulsion Intravenous 50 ml/ Sodium Chloride 40 meq/Potassium Chloride 20 meq/ Potassium Phosphate 44 meq/ Calcium Gluconate 2.3 meq/Magnesium Sulfate 8 meq/ Multivitamins 10 ml/Chromium/ Copper/Manganese/ Zinc 1 ml/Amino Acids/Dextrose/ Purified Water 1,047.9462 ml @ 44 mls/hr [id number] IV 04/06/25 22:00 04/06/25 22:00 Cancel Cefepime HCl 50 ml @ 12.5 mls/hr Q12HR@0600,1800 IV 04/07/25 06:00 04/12/25 05:53 12.5 MLS/HR Micafungin Sodium 100 mg/Sodium Chloride 100 ml @ 100 mls/hr DAILY IV 04/07/25 10:00 04/12/25 07:58 100 MLS/HR Doxycycline Hyclate 100 ml @ 50 mls/hr Q12H IV 04/06/25 14:45 04/12/25 14:27 50 MLS/HR Enteral Nutritional Formula 1,000 ml 40ML/HR GT 04/06/25 15:15 04/11/25 17:08 1,000 ML Amino Acid Protein 30 ml DAILY PO 04/07/25 10:00 04/12/25 07:57 30 ML Albuterol 2.5 mg Q8H NEB 04/07/25 14:00 04/12/25 21:54 2.5 MG Ipratropium [place] 0.5 mg Q8H NEB 04/07/25 14:00 04/12/25 21:54 0.5 MG Norepinephrine Bitartrate 250 ml @ 3.75 mls/hr Q24H IV 04/08/25 09:00 04/08/25 17:33 7.5 MLS/HR Polyethylene Glycol 17 gm DAILY PO 04/09/25 10:00 04/11/25 08:37 17 GM Sodium Chloride 10 ml QSHIFT@10,22 IV 04/09/25 22:00 04/12/25 21:47 10 ML Methylprednisolone Sodium Succinate 40 mg BID IV 04/11/25 22:00 04/12/25 21:47 40 MG Ondansetron HCl 4 mg Q4HPRN PRN IV 04/12/25 22:45 Laboratory Results Laboratory Tests 04/12/25 03:10 Chemistry Test 04/12/25 03:10 Calcium Level 8.3 mg/dL (8.7-10.4) L Magnesium Level 2.0 mg/dL (1.6-2.6) Urinalysis Test 04/02/25 20:38 Urine Color Yellow (Yellow) Urine Clarity Clear (Clear) Urine pH 5.5 (5.0-9.0) Urine Specific [place] 1.015 (1.001-1.035) Urine Protein Trace (Negative) H Urine Ketones Negative (Negative) Urine Blood Negative /uL (Negative) Urine Nitrite Negative (Negative) Urine Bilirubin Negative (Negative) Urine Urobilinogen Normal mg/dL (Negative) Urine Leukocyte Esterase Negative /uL (Negative) Urine RBC 1 /hpf (0 - 4) Urine Microscopic WBC 1 /HPF (0-5) Urine Squamous Epithelial Cells None seen /hpf (<5) Urine Bacteria None seen /hpf (None Seen) Urine Mucus Few (None Seen) Urine Glucose Normal mg/dL (Normal) Blood Gas Results Test 04/12/25 06:54 Arterial Blood pH 7.489 (7.350-7.450) FiO2 % 30.0 Microbiology Microbiology Date/Time Source Procedure Growth Status 04/05/25 08:00 Nose MRSA Screen - Final Complete 04/03/25 10:00 Sputum Endotracheal Wash Gram Stain - Final Resulted 04/03/25 10:00 Sputum Endotracheal Wash Respiratory Culture - Preliminary Resulted 04/02/25 20:04 Blood Blood Culture - Final NO GROWTH AFTER 5 DAYS OF INCUBATION. Complete Assessment/Plan Assessment/Plan Impression: Acute hypoxic respiratory failure On mechanical ventilator Acute COPD exacerbation Congestive heart failure Atelectasis Leukocytosis Cachexia, BMI 16.5 Events: Patient seen and examined at bedside. She is alert, awake, following commands. On CPAP trial Tapered PS to 10 and PEEP to 8 cmH2O. Awaiting weaning parameters for extubation. On Precedex drip Will consider extubation if tolerates for 1 hour Will need bridge with BiPAP or high flow Off Levophed, hemodynamically stable. MRI pending. Continue bronchodilators. Continue antibiotics - doxycycline, cefepime Continue antifungal -micafungin. Follow up cultures Continue steroids Interval increase in WBC to 13.9 K - patient is afebrile Continue to monitor Monitor hemoglobin - currently 8.4 g/dL Monitor blood pressure Goals of care - Discussed with daughter about possible tracheostomy. Labs and imaging reviewed. Rest of plan as noted below. Plan: s/p intubation on mechanical ventilator. On AC mode; RR 20, VT 350, PEEP 5, FiO2 35% Titrate FIO2 to keep O2 saturation above 90%. VAP bundle. Daily ABG and CXR while intubated Continue bronchodilators. Continue antibiotics Monitor WBC Continue steroids Pressors as necessary for hemodynamic support. Titrate to keep MAP greater than 65 mmHg. Follow up Cardiology recs Monitor hemoglobin Transfuse if less than 7.0 g/dL. Monitor renal function. Monitor electrolytes. Supplement as necessary. Monitor ins and outs. GI/DVT prophylaxis. Prognosis: Poor given patient's multiple co-morbidities. Condition: Critical Rest of plan per hospitalist and other consultants. A total of 35 minutes of critical care time was spent reviewing the patient record, examining the patient, making a diagnostic and therapeutic plan, discussing this plan with the medical personnel, following up on diagnostic studies and following the patient for clinical stability excluding any and all procedures. At least 50% of this time was spent in direct, [id number] contact. Thank you, Dr. Hunter, for allowing me to participate in this patient's care. Further recommendations will depend on the patient's clinical course. Please do not hesitate to contact me if you have any questions or concerns. This medical document was created using an electronic medical record system with [email or web address] dictation system. Although these documentations are being carefully reviewed, there may still be some phonetic and typographical changes. The errors are purely typographical, due to imperfection on the software program, and do not reflect any compromise in the patient's medical care. Plan discussed with: Other (ABMER Crocker) Visit Coding Pulmonary Billing Provider: LIDIA KLEIN MD Date of Service if different f: Apr 12, 2025 Common Visit Codes: 40550-[id number] INP/OBS CARE(HIGH), 74789-CAAIBTER CARE 30-74 MIN LIDIA KLIEN MD Apr 12, 2025 23:49
[2025-04-13] VITALS (100 sets, daily range): BP systolic 91–134; BP diastolic 52–84; PULSE 96–127; RESP 12–29; TEMP 97.3–98.7; O2SAT 92–100
[2025-04-13] MEDS: ONDANSETRON HCL 4 MG/2 ML VIAL ONE (00:02)
[2025-04-13 03:42] LABS: Hematocrit 24.8 % (36.0-46.0); Hemoglobin 8.5 g/dL (12.2-16.2); Mean Corpuscular Hemoglobin 32.0 pg (28.0-32.0); Mean Corpuscular Volume 93.5 fL (80.0-100.0); Nucleated Red Blood Cells % 0.0 %
[2025-04-13 04:15] LABS: Alkaline Phosphatase 69 U/L (46-116); Anion Gap 7 (5-15); BUN/Creatinine Ratio 61.5 (10.0-20.0); Bilirubin, Total 0.6 mg/dL (0.2-1.0); Chloride 103 mmol/L (98-107); Glucose 87 mg/dL (74-106); Magnesium 2.1 mg/dL (1.6-2.6); Potassium 3.5 mmol/L (3.5-5.1); Sodium 142 mmol/L (136-145)
[2025-04-13 04:31] LABS: Alanine Aminotransferase 40 U/L (7-40); Blood Urea Nitrogen 24 mg/dL (9-23); Calcium 8.6 mg/dL (8.7-10.4); Carbon Dioxide 32 mmol/L (20-31)
[2025-04-13 04:32] LABS: Albumin 2.7 g/dL (3.2-4.8); Total Protein 4.9 g/dL (5.7-8.2)
--- NOTE | 2025-04-13 05:06 | DVH ---
CHEST RADIOGRAPH Indication: on vent Technique: Single frontal view of the chest was obtained COMPARISON: XY CHEST XRAY 1 VIEW on DOS: 04/12/25, XY CHEST XRAY 1 VIEW on DOS: 04/11/25, XY CHEST XRAY 1 VIEW on DOS: 04/10/25, XY CHEST XRAY 1 VIEW on DOS: 04/09/25, XY CHEST XRAY 1 VIEW on DOS: 5 FINDINGS: Lines and Tubes: Slight interval retraction of endotracheal tube such that the tip now projects appro ximately 5.4 cm above the level of the vani. Remaining lines and tubes unchanged. Lungs: Clear. Right apex obscured by the patient's lowered to chin. Pleura: No effusion. No pneumothorax. Cardiomediastinal contours: Unremarkable Bones: Unremarkable IMPRESSION: 1. Slight interval retraction of endotracheal tube such that the tip now projects approximately 5.4 c m above the level of the vani. Remaining lines and tubes unchanged. 2. Otherwise no significant change compared to prior exam.
[2025-04-13 09:11] LABS: Base Excess 7.2 mmol/L (-2.0-3.0)
--- NOTE | 2025-04-13 09:29 | DVHPN2 ---
Progress Note - Dictate Date Seen: Apr 13, 2025 Medical Necessity Reason Pt with a Central, PICC or Fol: Yes The following are medically ne: Central Line, Chin Catheter Subjective Ms. Cedeno is a 59 years old female with a history of hypotension, dyslipidemia, congestive heart failure, COPD, GERD, anxiety, she was brought to the [facility] on 03/30/2025 with a chief complaint of shortness breath. 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 Early afternoon: right: 3 mm, left: 5 mm. around 6:30PM, right: 2 mm, left: 3 mm, sluggish light reflexes 04/06/2025: Rt: 3, Lt: 3-4. 04/07/25: Rt: 2mm, Lt: 3mm 04/08/2025: Rt: 2mm, Lt: 3mm 04/08/2025: Rt: 2mm, Lt: 2mm 04/11/2025: Rt: 2mm, Lt: 4mm 04/12/2025: Rt: 2mm, Lt: 4mm 04/13/2025: Rt: 2mm, Lt: 4mm Blood culture, 04/02/2025: Negative UDS, 04/02/2025: Negative Plasma alcohol, 04/02/2025: <3 Urinalysis, 04/02/2025: WBC: 1, urine leukocyte esterase: Negative ABG, 04/05/2025: Carbon dioxide retention WBC/HB/PLT/MCV, 04/02/2025: 22.5/9.7/236/95.6, 04/03/2025: 71.9/10.8/245/96.3, 04/04/2025: 26.6/9.8/251/95.5, 04/06/2025: 14.5/8.8/278/93.6, 04/08/2025: 15.5/8.9/234/93.6 CMP, 04/04/2025: Unremarkable Chest x-ray, 04/02/2025: Patchy [id number]-left bibasilar opacities, favoring infection Chest x-ray 04/05/2025: 1. Endotracheal tube 5.8 cm above the vani 2. Right internal jugular catheter in place at the cavoatrial junction. 3. Enteric tube below the left diaphragm less likely in the stomach. 4. IMPROVING airspace disease right lower lobe. Chest x-ray, 04/08/2025: 1. No acute cardiopulmonary disease. 2. Lines and tubes unchanged. CT head, 04/05/2025:1. No evidence of acute intracranial abnormality. 2. Mild subcortical and periventricular low attenuation, nonspecific but most commonly associated with sequelae of chronic microvascular ischemic changes although other etiologies are not excluded. vital signs Vital Sign Date Time Temp Pulse Resp B/P (MAP) Pulse Ox O2 Delivery O2 Flow Rate FiO2 04/13/25 07:30 127 25 111/72 (85) 95 30 04/13/25 06:00 Mechanical Ventilator+ 04/13/25 04:00 98.6 98.6 Total Intake and Output 04/12/25 04/12/25 04/13/25 15:00 23:00 07:00 Intake Total 321.82 ml 143.58 ml 90 ml Output Total 550 ml 500 ml Balance 321.82 ml -406.42 ml -410 ml medications Current Medications Medications Dose Ordered Sig/Guy Route Start Time Stop Time Status Last Admin Dose Admin Famotidine 20 mg Q12HR IV 04/03/25 10:00 04/12/25 21:47 20 MG Docusate Sodium 100 mg BIDPRN PRN PO 04/02/25 23:15 Acetaminophen 650 mg Q6HP PRN PO 04/02/25 23:15 04/12/25 14:27 650 MG Nitroglycerin 0.4 mg Q5MINP PRN SL 04/03/25 00:00 Norepinephrine Bitartrate 250 ml @ 3.75 mls/hr Q24H IV 04/03/25 10:00 UNV Midazolam HCl 100 ml @ 1 mls/hr Q24H IV 04/03/25 10:00 04/08/25 03:45 3 MLS/HR Acetaminophen 650 mg Q6HP PRN [place] 04/03/25 20:15 Fentanyl Citrate 250 ml @ 2.5 mls/hr Q24H IV 04/06/25 05:30 04/10/25 00:44 5 MLS/HR Fat Emulsion Intravenous 50 ml/ Sodium Chloride 40 meq/Potassium Chloride 20 meq/ Potassium Phosphate 44 meq/ Calcium Gluconate 2.3 meq/Magnesium Sulfate 8 meq/ Multivitamins 10 ml/Chromium/ Copper/Manganese/ Zinc 1 ml/Amino Acids/Dextrose/ Purified Water 1,047.9462 ml @ 44 mls/hr [id number] IV 04/06/25 22:00 04/06/25 22:00 Cancel Cefepime HCl 50 ml @ 12.5 mls/hr Q12HR@0600,1800 IV 04/07/25 06:00 04/12/25 05:53 12.5 MLS/HR Micafungin Sodium 100 mg/Sodium Chloride 100 ml @ 100 mls/hr DAILY IV 04/07/25 10:00 04/12/25 07:58 100 MLS/HR Doxycycline Hyclate 100 ml @ 50 mls/hr Q12H IV 04/06/25 14:45 04/12/25 14:27 50 MLS/HR Enteral Nutritional Formula 1,000 ml 40ML/HR GT 04/06/25 15:15 04/11/25 17:08 1,000 ML Amino Acid Protein 30 ml DAILY PO 04/07/25 10:00 04/12/25 07:57 30 ML Albuterol 2.5 mg Q8H NEB 04/07/25 14:00 04/12/25 21:54 2.5 MG Ipratropium [place] 0.5 mg Q8H NEB 04/07/25 14:00 04/12/25 21:54 0.5 MG Norepinephrine Bitartrate 250 ml @ 3.75 mls/hr Q24H IV 04/08/25 09:00 04/08/25 17:33 7.5 MLS/HR Polyethylene Glycol 17 gm DAILY PO 04/09/25 10:00 04/11/25 08:37 17 GM Sodium Chloride 10 ml QSHIFT@10,22 IV 04/09/25 22:00 04/12/25 21:47 10 ML Methylprednisolone Sodium Succinate 40 mg BID IV 04/11/25 22:00 04/12/25 21:47 40 MG Ondansetron HCl 4 mg Q4HPRN PRN IV 04/12/25 22:45 objective The patient is well-nourished and well-developed with no distress. The patient is intubated MENTAL STATUS: Subjective CRANIAL NERVES: Pupils are round and reactive, no associated abnormal vascular dilatation and skin secretion. There are corneal reflexes and doll's eyes phenomenon. No signs of facial weakness. There are gagging or coughing reflexes during oral/airway care SENSATION: Responses to touch MOTOR: Normal tone in the upper and lower extremity. Normal muscle bulk. No fasciculations. Moves the arms and the legs REFLEXES: Deep tendon reflexes are symmetrical. No pathological reflexes. CEREBELLAR/COORDINATION: No ataxia GAIT/STATION: deferred laboratory and microbiology Laboratory Tests 04/13/25 03:00 Test 04/13/25 03:00 Range/Units Serum Glucose 87 74-106 mg/dL Problem List Altered mental status, resolved Hypoxic encephalopathy Metabolic encephalopathy Toxic encephalopathy Acute on chronic respiratory failure Pneumoniae Leukocytosis/sepsis Anisocoria Etiology unclear Cachexia Assessment/Plan Monitoring Supportive treatment Follow-up lab Blood culture Stabilize vitals Respiratory support/vent management IV antibiotics Oxygen Midodrine Improving Consider CPAP trial/extubation again More recommendation per clinical course This medical document was created using an electronic medical record system with [employer] dictation system. Although this document has been carefully reviewed, there may still be some phonetic and typographical errors. These areas are purely typographical due to imperfections of the software programs, and do not reflect any compromise in the patient's medical care. Prognosis Guarded Dietary Evaluation Review Comments: 1) If patient remains NPO > 7 days, consider EN/TPN to meet at least 75% estimated daily needs 2) If gut is preferred, initiate Vital High Protein @ 40 mL/hr goal rate as tolerated. Flush with 50 mL free H2O Q6H. EN regimen will provide 960 kcals, 84g Pro, and 1003 mL free H2O (including TF flushes) per 24 hrs. Goal rate will meet ~ 95% estimated energy needs and ~ 93% estimated protein needs 3) Advance to cardiac diet when medically feasible, pending ST approval 4) Refer to outpatient RD for weight management 5) Follow-up with cardiology and pulmonology 6) Continue to monitor I&O, labs, and skin integrity Expected Outcomes/Goals: 1) patient to receive nutritional support within 7 days of NPO status 2) labs to improve 3) diet to advance 4) gradual wt gain 5) f/u in 2-3 days Plan discussed with: Other RAMAN LAWTON MD Apr 13, 2025 09:29
[2025-04-13 12:00] LABS: Base Excess 5.9 mmol/L (-2.0-3.0)
--- NOTE | 2025-04-13 17:24 | DVHPNRES ---
Progress Note Date Seen: Apr 13, 2025 Resident Creating Document: CRICKET GUAMAN RESIDENT Medical Necessity Reason Pt with a Central, PICC or Fol: Yes The following are medically ne: Central Line, Chin Catheter Subjective Review of Systems Patient is a 59 year old female with past medical history of CHF, Chronic obstructive pulmonary disease, GERD, hyperlipidemia who presented to hospital with chief complaints of shortness of breath. As per daughter patient had increased work of breathing, uses home oxygen 2 L, which was increased to 6 L at home for which saturation improved to 94%. Patient in the ER became altered and was intubated on 04/03/25. as per daughter echocardiogram showed 50% in [facility]. x-ray showed Stable chronic appearing bilateral interstitial pulmonary markings and mild bibasilar pulmonary airspace disease. Past surgical history: Tonsillectomy family history: reviewed, noncontributory Social history: per daughter patient has smoked since she was 15 years old and nicotine vape, used methamphetamine 04/11/25: Patient seen in ICU. on cpap trial, on pressure support control, pulling 400 ml volume Psupport 10 and Peep 5 mm hg. plan for cpap trial tomorrow. 04/12/25: Patient seen in ICU. CPAP trial failed. NIf -13. we will try again tomorrow. 04/13/25: Patient seen in the [facility]. patient was successfully extubated today. We will keep monitoring oxygen saturation, or possible need for BiPAP. Patient's daughter at bedside was explained about patient's condition and prognosis. Objective vital signs Vital Sign Date Time Temp Pulse Resp B/P (MAP) Pulse Ox O2 Delivery O2 Flow Rate FiO2 04/13/25 17:00 102 21 121/65 (83) 94 04/13/25 16:00 Cool Aerosol 2 28 28 04/13/25 12:00 98.1 98.1 Total Intake and Output 04/12/25 04/12/25 04/13/25 15:00 23:00 07:00 Intake Total 321.82 ml 143.58 ml 90 ml Output Total 550 ml 500 ml Balance 321.82 ml -406.42 ml -410 ml medications Current Medications Medications Dose Ordered Sig/Guy Route Start Time Stop Time Status Last Admin Dose Admin Famotidine 20 mg Q12HR IV 04/03/25 10:00 04/13/25 11:05 20 MG Docusate Sodium 100 mg BIDPRN PRN PO 04/02/25 23:15 Acetaminophen 650 mg Q6HP PRN PO 04/02/25 23:15 04/12/25 14:27 650 MG Nitroglycerin 0.4 mg Q5MINP PRN SL 04/03/25 00:00 Norepinephrine Bitartrate 250 ml @ 3.75 mls/hr Q24H IV 04/03/25 10:00 UNV Midazolam HCl 100 ml @ 1 mls/hr Q24H IV 04/03/25 10:00 04/08/25 03:45 3 MLS/HR Acetaminophen 650 mg Q6HP PRN [place] 04/03/25 20:15 Fentanyl Citrate 250 ml @ 2.5 mls/hr Q24H IV 04/06/25 05:30 04/10/25 00:44 5 MLS/HR Fat Emulsion Intravenous 50 ml/ Sodium Chloride 40 meq/Potassium Chloride 20 meq/ Potassium Phosphate 44 meq/ Calcium Gluconate 2.3 meq/Magnesium Sulfate 8 meq/ Multivitamins 10 ml/Chromium/ Copper/Manganese/ Zinc 1 ml/Amino Acids/Dextrose/ Purified Water 1,047.9462 ml @ 44 mls/hr [id number] IV 04/06/25 22:00 04/06/25 22:00 Cancel Cefepime HCl 50 ml @ 12.5 mls/hr Q12HR@0600,1800 IV 04/07/25 06:00 04/12/25 05:53 12.5 MLS/HR Micafungin Sodium 100 mg/Sodium Chloride 100 ml @ 100 mls/hr DAILY IV 04/07/25 10:00 04/13/25 11:21 100 MLS/HR Doxycycline Hyclate 100 ml @ 50 mls/hr Q12H IV 04/06/25 14:45 04/13/25 15:24 50 MLS/HR Enteral Nutritional Formula 1,000 ml 40ML/HR GT 04/06/25 15:15 04/11/25 17:08 1,000 ML Amino Acid Protein 30 ml DAILY PO 04/07/25 10:00 04/12/25 07:57 30 ML Albuterol 2.5 mg Q8H NEB 04/07/25 14:00 04/13/25 14:30 2.5 MG Ipratropium [place] 0.5 mg Q8H NEB 04/07/25 14:00 04/13/25 14:30 0.5 MG Norepinephrine Bitartrate 250 ml @ 3.75 mls/hr Q24H IV 04/08/25 09:00 04/08/25 17:33 7.5 MLS/HR Polyethylene Glycol 17 gm DAILY PO 04/09/25 10:00 04/11/25 08:37 17 GM Sodium Chloride 10 ml QSHIFT@10,22 IV 04/09/25 22:00 04/13/25 11:15 10 ML Methylprednisolone Sodium Succinate 40 mg BID IV 04/11/25 22:00 04/13/25 11:05 40 MG Ondansetron HCl 4 mg Q4HPRN PRN IV 04/12/25 22:45 Examination Patient lying in bed General: Patient is alert, following commands, Extubated HEENT: Normocephalic, atraumatic, moist mucous membranes Respiratory/pulmonary: diminished breath sounds bilaterally. Cardiovascular: Normal heart sounds S1 and S2 with no associated murmurs Abdomen: Abdomen nondistended, there is no pain to palpation in any of the abdominal quadrants, no palpable masses. Extremities: There is no peripheral edema present at the lower extremities. Peripheral Pulses: 3+ Radial (R). 3+ Radial (L). 3+ Dorsalis pedis (R). 3+ Dorsalis pedis(L) Skin: Multiple skin tears, no sacral wound present, Neurological: Pupils reactive, gag and cough reflex present laboratory and microbiology Laboratory Tests 04/13/25 03:00 Test 04/13/25 03:00 Range/Units Serum Glucose 87 74-106 mg/dL Microbiology Date/Time Source Procedure Growth Status 04/12/25 22:58 Stool Stool Culture - Preliminary Resulted 04/12/25 22:58 Stool Shiga Toxin I & II - Final Resulted 04/05/25 08:00 Nose MRSA Screen - Final Complete 04/03/25 10:00 Sputum Endotracheal Wash Gram Stain - Final Resulted 04/03/25 10:00 Sputum Endotracheal Wash Respiratory Culture - Preliminary Resulted 04/02/25 20:04 Blood Blood Culture - Final NO GROWTH AFTER 5 DAYS OF INCUBATION. Complete Problem List/Assessment/Plan Problem List/Assessment/Plan Neurology Acute metabolic/hypoxic encephalopathy likely due to COPD exacerbation - Mechanically ventilated, sedated: RASS score -3 - ventilator setting: on AC mode; RR 20,VT 350, Fio2-35%, PEEP-5 - neurology on board - Ordered MRI of head and Neck, MRA angio of neck Cardiology Chronic diastolic Congestive heart failure - as per daughter EF of 50% Respiratory Sepsis likely due to below Acute on chronic hypoxic respiratory failure secondary to acute COPD exacerbation/ pneumonia Acute G +/- Bacterial PNA possible atelectasis - continue bronchodilators, - continue Solu-Medrol 40 mg - chest xray: Slight interval advancement of the endotracheal tube such that the tip now projects approximately 3.9 cm above the level of the vani. Remaining lines and tubes unchanged. Stable chronic appearing bilateral interstitial pulmonary markings and mild bibasilar pulmonary airspace disease - IV metronidazole, azithromycin changed to doxycycline, cefepime, micafungin - respiratory culture -showed for filamentous fungi -Chest CT showed lower lobe consolidation, multiple small foci, severe centrilobar Emphysema. GI/Liver Cachexia BMI 15.3 Severe protein malnutrition Slow transit constipation - Miralax Hematology Anemia of chronic disease Iron deficiency anemia - monitor hemoglobin Renal Electrolytes hyponatremia hypocalcemia hypophosphatemia - replete electrolytes - Monitor electrolytes Lines/tubes/devices Airway: Intubated via ETT on 04/03/25 , extubated on 04/13/25 Vascular access: Central line Rt IJ 04/05 and Rt femoral 04/03 Drips: Fentanyl, midazolam Diet: Vital HP DVT prophylaxis: Lovenox GI prophylaxis: Protonix Great discussion taken place with Daughter for 37 mins about patients condition and poor prognosis, and possible Tracheostomy. Goals of car discussed with family for more than 29 minutes : Full code Care plan updated to the family, critical time spent more than 84 minutes including cpap trial and extubation and excluding procedures Case discussed with Dr. Briggs , RN Plan discussed with: Patient, Daughter Dietary Evaluation Review Comments: 1) If patient remains NPO > 7 days, consider EN/TPN to meet at least 75% estimated daily needs 2) If gut is preferred, initiate Vital High Protein @ 40 mL/hr goal rate as tolerated. Flush with 50 mL free H2O Q6H. EN regimen will provide 960 kcals, 84g Pro, and 1003 mL free H2O (including TF flushes) per 24 hrs. Goal rate will meet ~ 95% estimated energy needs and ~ 93% estimated protein needs 3) Advance to cardiac diet when medically feasible, pending ST approval 4) Refer to outpatient RD for weight management 5) Follow-up with cardiology and pulmonology 6) Continue to monitor I&O, labs, and skin integrity Expected Outcomes/Goals: 1) patient to receive nutritional support within 7 days of NPO status 2) labs to improve 3) diet to advance 4) gradual wt gain 5) f/u in 2-3 days Date of Service: Apr 13, 2025 Billing Provider: REBECCA BRIGGS MD Common Visit Codes: 94110-[id number] CARE 30-74 MIN, [id number] CARE-EACH +30MIN CRICKET GUAMAN RESIDENT Apr 13, 2025 17:24 REBECCA BRIGGS MD Apr 14, 2025 13:12
[2025-04-14] VITALS (71 sets, daily range): BP systolic 105–141; BP diastolic 58–81; PULSE 85–122; RESP 10–29; TEMP 97.4–98.2; O2SAT 92–100
[2025-04-14 02:36] LABS: Hematocrit 26.3 % (36.0-46.0); Hemoglobin 8.5 g/dL (12.2-16.2); Mean Corpuscular Hemoglobin 30.5 pg (28.0-32.0); Mean Corpuscular Volume 94.2 fL (80.0-100.0); Nucleated Red Blood Cells % 0.0 %
[2025-04-14 04:47] LABS: Alkaline Phosphatase 75 U/L (46-116); Anion Gap 6 (5-15); BUN/Creatinine Ratio 73.3 (10.0-20.0); Bilirubin, Total 0.6 mg/dL (0.2-1.0); Chloride 103 mmol/L (98-107); Glucose 99 mg/dL (74-106); Potassium 4.0 mmol/L (3.5-5.1); Sodium 144 mmol/L (136-145)
[2025-04-14 05:48] LABS: Alanine Aminotransferase 45 U/L (7-40); Albumin 2.9 g/dL (3.2-4.8); Blood Urea Nitrogen 33 mg/dL (9-23); Calcium 8.4 mg/dL (8.7-10.4); Carbon Dioxide 35 mmol/L (20-31); Total Protein 4.9 g/dL (5.7-8.2)
--- NOTE | 2025-04-14 07:51 | DVH ---
CHEST RADIOGRAPH Indication: status post extubation Technique: Single frontal view of the chest was obtained Comparison: XY CHEST XRAY 1 VIEW on DOS: 04/13/25, XY CHEST XRAY 1 VIEW on DOS: 04/12/25, XY CHEST XRAY 1 VIEW on DOS: 04/11/25, XY CHEST XRAY 1 VIEW on DOS: 04/10/25, XY CHEST XRAY 1 VIEW on DOS: 04/09/25, XY CHEST XRAY 1 VIEW on DOS: 04/13/25 FINDINGS: Lines and Tubes: Endotracheal tube and nasogastric tube have removed. Stable left PICC. Lungs: Clear. Right apex obscured by the patient's lowered to chin. Pleura: No effusion. No pneumothorax. Cardiomediastinal contours: Unremarkable Bones: Unremarkable IMPRESSION: Endotracheal tube and nasogastric tube have removed. Stable left PICC. Otherwise no significant change compared to prior exam.
--- NOTE | 2025-04-14 08:05 | ECG ---
[facility] Test Date: 2025-04-12 Test Time: 22:32:15 Pat Name: FLACA FLAHERTY Department: Respiratoy Room: 0264 A Gender: F Tool Procurement Coordinator: : [id number] Requested By: LU BRITO Order Number: [id number] Reading MD: Jaime Larson Measurements Intervals [place] Rate: 106 P: 87 MN: 107 QRS: 90 QRSD: 94 T: 267 QT: 327 QTc: 435 Interpretive Statements Sinus tachycardia Borderline right axis deviation Borderline repolarization abnormality Baseline wander in lead(s) V1 Electronically Signed On 04-14-2025 13:08:32 PST by Jaime Larson Please click the below link to view image of tracing.
--- NOTE | 2025-04-14 08:05 | ECG ---
[facility] Test Date: 2025-04-12 Test Time: 03:52:22 Pat Name: FLACA FLAHERTY Department: Respiratoy Room: 0264 A Gender: F Health Safety Specialist: Luz Joy : 1965 Requested By: PALMER TOLENTINO Order Number: [id number] Reading MD: Jaime Larson Measurements Intervals [place] Rate: 78 P: 79 ID: 57 QRS: 93 QRSD: 94 T: 73 QT: 432 QTc: 493 Interpretive Statements Sinus rhythm Short ID interval Low voltage with right axis deviation Abnrm T, consider ischemia, anterolateral lds Electronically Signed On 04-14-2025 13:07:46 PST by Jaime Larson Please click the below link to view image of tracing.
[2025-04-14 08:32] LABS: Base Excess 6.6 mmol/L (-2.0-3.0)
--- NOTE | 2025-04-14 10:30 | DVHPN2 ---
Progress Note - Dictate Date Seen: Apr 14, 2025 Medical Necessity Reason Pt with a Central, PICC or Fol: Yes The following are medically ne: Central Line, Chin Catheter Subjective Ms. Cedeno is a 59 years old female with a history of hypotension, dyslipidemia, congestive heart failure, COPD, GERD, anxiety, she was brought to the [facility] on 03/30/2025 with a chief complaint of shortness breath. I have seen and examined the patient in the ICU, I have discussed with her nurse, she is extubated, alert and fully oriented, she can swallow Apple source with no problems She reported that all her life, her right pupil is bigger She has bilateral cataract surgery Pupil size: In the morning on 04/05/2025: Equal. Early afternoon: right: 3 mm, left: 5 mm. around 6:30PM, right: 2 mm, left: 3 mm, sluggish light reflexes 04/06/2025: Rt: 3, Lt: 3-4. 04/07/25: Rt: 2mm, Lt: 3mm 04/08/2025: Rt: 2mm, Lt: 3mm 04/08/2025: Rt: 2mm, Lt: 2mm 04/11/2025: Rt: 2mm, Lt: 4mm 04/12/2025: Rt: 2mm, Lt: 4mm 04/13/2025: Rt: 2mm, Lt: 4mm 04/14/2025: Rt: 2mm, Lt: 4mm Blood culture, 04/02/2025: Negative UDS, 04/02/2025: Negative Plasma alcohol, 04/02/2025: <3 Urinalysis, 04/02/2025: WBC: 1, urine leukocyte esterase: Negative ABG, 04/05/2025: Carbon dioxide retention WBC/HB/PLT/MCV, 04/02/2025: 22.5/9.7/236/95.6, 04/03/2025: 71.9/10.8/245/96.3, 04/04/2025: 26.6/9.8/251/95.5, 04/06/2025: 14.5/8.8/278/93.6, 04/08/2025: 15.5/8.9/234/93.6 CMP, 04/04/2025: Unremarkable Chest x-ray, 04/02/2025: Patchy [id number]-[id number]-[id number]-left bibasilar opacities, favoring infection Chest x-ray 04/05/2025: 1. Endotracheal tube 5.8 cm above the vani 2. Right internal jugular catheter in place at the cavoatrial junction. 3. Enteric tube below the left diaphragm less likely in the stomach. 4. IMPROVING airspace disease right lower lobe. Chest x-ray, 04/08/2025: 1. No acute cardiopulmonary disease. 2. Lines and tubes unchanged. CT head, 04/05/2025:1. No evidence of acute intracranial abnormality. 2. Mild subcortical and periventricular low attenuation, nonspecific but most commonly associated with sequelae of chronic microvascular ischemic changes although other etiologies are not excluded. vital signs Vital Sign Date Time Temp Pulse Resp B/P (MAP) Pulse Ox O2 Delivery O2 Flow Rate FiO2 04/14/25 08:29 115/70 04/14/25 06:57 104 16 100 04/14/25 06:50 Nasal Cannula* 2 28 04/14/25 04:00 97.7 97.7 Total Intake and Output 04/13/25 04/13/25 04/14/25 15:00 23:00 07:00 Intake Total 200 ml 212.5 ml 100 ml Output Total 300 ml 450 ml Balance 200 ml -87.5 ml -350 ml medications Current Medications Medications Dose Ordered Sig/Guy Route Start Time Stop Time Status Last Admin Dose Admin Famotidine 20 mg Q12HR IV 04/03/25 10:00 04/13/25 21:53 20 MG Docusate Sodium 100 mg BIDPRN PRN PO 04/02/25 23:15 Acetaminophen 650 mg Q6HP PRN PO 04/02/25 23:15 04/12/25 14:27 650 MG Nitroglycerin 0.4 mg Q5MINP PRN SL 04/03/25 00:00 Norepinephrine Bitartrate 250 ml @ 3.75 mls/hr Q24H IV 04/03/25 10:00 UNV Acetaminophen 650 mg Q6HP PRN [place] 04/03/25 20:15 Fat Emulsion Intravenous 50 ml/ Sodium Chloride 40 meq/Potassium Chloride 20 meq/ Potassium Phosphate 44 meq/ Calcium Gluconate 2.3 meq/Magnesium Sulfate 8 meq/ Multivitamins 10 ml/Chromium/ Copper/Manganese/ Zinc 1 ml/Amino Acids/Dextrose/ Purified Water 1,047.9462 ml @ 44 mls/hr [id number] IV 04/06/25 22:00 04/06/25 22:00 Cancel Cefepime HCl 50 ml @ 12.5 mls/hr Q12HR@0600,1800 IV 04/07/25 06:00 04/14/25 06:18 12.5 MLS/HR Micafungin Sodium 100 mg/Sodium Chloride 100 ml @ 100 mls/hr DAILY IV 04/07/25 10:00 04/13/25 11:21 100 MLS/HR Doxycycline Hyclate 100 ml @ 50 mls/hr Q12H IV 04/06/25 14:45 04/14/25 01:51 50 MLS/HR Enteral Nutritional Formula 1,000 ml 40ML/HR GT 04/06/25 15:15 04/11/25 17:08 1,000 ML Amino Acid Protein 30 ml DAILY PO 04/07/25 10:00 04/12/25 07:57 30 ML Albuterol 2.5 mg Q8H NEB 04/07/25 14:00 04/14/25 06:50 2.5 MG Ipratropium [place] 0.5 mg Q8H NEB 04/07/25 14:00 04/14/25 06:50 0.5 MG Polyethylene Glycol 17 gm DAILY PO 04/09/25 10:00 04/11/25 08:37 17 GM Sodium Chloride 10 ml QSHIFT@10,22 IV 04/09/25 22:00 04/13/25 21:52 10 ML Methylprednisolone Sodium Succinate 40 mg BID IV 04/11/25 22:00 04/13/25 21:53 40 MG Ondansetron HCl 4 mg Q4HPRN PRN IV 04/12/25 22:45 objective The patient is well-nourished and well-developed with no distress. The patient is intubated MENTAL STATUS: Subjective CRANIAL NERVES: Pupils are round and reactive, no associated abnormal vascular dilatation and skin secretion. There are corneal reflexes and doll's eyes phenomenon. No signs of facial weakness SENSATION: Normal to light touch the pinprick MOTOR: Normal tone in the upper and lower extremity. Normal muscle bulk. No fasciculations. Moves the arms and the legs REFLEXES: Deep tendon reflexes are symmetrical. No pathological reflexes. CEREBELLAR/COORDINATION: Finger-nose test is fine GAIT/STATION: deferred laboratory and microbiology Laboratory Tests 04/14/25 01:40 Test 04/14/25 01:40 Range/Units Serum Glucose 99 74-106 mg/dL Problem List Altered mental status, resolved Hypoxic encephalopathy Metabolic encephalopathy Toxic encephalopathy Acute on chronic respiratory failure, better Pneumoniae, improving Leukocytosis/sepsis Anisocoria Etiology unclear Cachexia Assessment/Plan Monitoring Supportive treatment Follow-up lab Blood culture Stabilize vitals Respiratory support [place] IV antibiotics Oxygen Midodrine More recommendation per clinical course This medical document was created using an electronic medical record system with [employer] dictation system. Although this document has been carefully reviewed, there may still be some phonetic and typographical errors. These areas are purely typographical due to imperfections of the software programs, and do not reflect any compromise in the patient's medical care. Prognosis poor Dietary Evaluation Review Comments: 1) If patient remains NPO > 7 days, consider EN/TPN to meet at least 75% estimated daily needs 2) If gut is preferred, initiate Vital High Protein @ 40 mL/hr goal rate as tolerated. Flush with 50 mL free H2O Q6H. EN regimen will provide 960 kcals, 84g Pro, and 1003 mL free H2O (including TF flushes) per 24 hrs. Goal rate will meet ~ 95% estimated energy needs and ~ 93% estimated protein needs 3) Advance to cardiac diet when medically feasible, pending ST approval 4) Refer to outpatient RD for weight management 5) Follow-up with cardiology and pulmonology 6) Continue to monitor I&O, labs, and skin integrity Expected Outcomes/Goals: 1) patient to receive nutritional support within 7 days of NPO status 2) labs to improve 3) diet to advance 4) gradual wt gain 5) f/u in 2-3 days Plan discussed with: Patient, Other Critical Care Time(min): 25 RAMAN LAWTON MD Apr 14, 2025 10:30
--- NOTE | 2025-04-14 11:24 | DVHPNRES ---
Progress Note Date Seen: Apr 14, 2025 Resident Creating Document: CRICKET GUAMAN RESIDENT Medical Necessity Reason Pt with a Central, PICC or Fol: Yes The following are medically ne: Central Line, Chin Catheter Subjective Review of Systems Patient is a 59 year old female with past medical history of CHF, Chronic obstructive pulmonary disease, GERD, hyperlipidemia who presented to hospital with chief complaints of shortness of breath. As per daughter patient had increased work of breathing, uses home oxygen 2 L, which was increased to 6 L at home for which saturation improved to 94%. Patient in the ER became altered and was intubated on 04/03/25. as per daughter echocardiogram showed 50% in [facility]. x-ray showed Stable chronic appearing bilateral interstitial pulmonary markings and mild bibasilar pulmonary airspace disease. Past surgical history: Tonsillectomy family history: reviewed, noncontributory Social history: per daughter patient has smoked since she was 15 years old and nicotine vape, used methamphetamine 04/11/25: Patient seen in ICU. on cpap trial, on pressure support control, pulling 400 ml volume Psupport 10 and Peep 5 mm hg. plan for cpap trial tomorrow. 04/12/25: Patient seen in ICU. CPAP trial failed. NIf -13. we will try again tomorrow. 04/13/25: Patient seen in the [facility]. patient was successfully extubated today. We will keep monitoring oxygen saturation, or possible need for BiPAP. Patient's daughter at bedside was explained about patient's condition and prognosis. 04/14/2025: Patient seen at the OU. Patient was successfully extubated yesterday. Patient is on 2 L oxygen. physical therapy tomorrow. Patient's passed swallow eval and diet was switched to soft mechanical diet. Objective vital signs Vital Sign Date Time Temp Pulse Resp B/P (MAP) Pulse Ox O2 Delivery O2 Flow Rate FiO2 04/14/25 08:29 115/70 04/14/25 08:15 20 99 Nasal Cannula* 2 28 04/14/25 08:15 105 04/14/25 04:00 97.7 97.7 Total Intake and Output 04/13/25 04/13/25 04/14/25 14:59 22:59 06:59 Intake Total 200 ml 212.5 ml 100 ml Output Total 300 ml 450 ml Balance 200 ml -87.5 ml -350 ml medications Current Medications Medications Dose Ordered Sig/Guy Route Start Time Stop Time Status Last Admin Dose Admin Famotidine 20 mg Q12HR IV 04/03/25 10:00 04/14/25 10:29 20 MG Docusate Sodium 100 mg BIDPRN PRN PO 04/02/25 23:15 Acetaminophen 650 mg Q6HP PRN PO 04/02/25 23:15 04/14/25 10:34 650 MG Nitroglycerin 0.4 mg Q5MINP PRN SL 04/03/25 00:00 Norepinephrine Bitartrate 250 ml @ 3.75 mls/hr Q24H IV 04/03/25 10:00 UNV Acetaminophen 650 mg Q6HP PRN [place] 04/03/25 20:15 Fat Emulsion Intravenous 50 ml/ Sodium Chloride 40 meq/Potassium Chloride 20 meq/ Potassium Phosphate 44 meq/ Calcium Gluconate 2.3 meq/Magnesium Sulfate 8 meq/ Multivitamins 10 ml/Chromium/ Copper/Manganese/ Zinc 1 ml/Amino Acids/Dextrose/ Purified Water 1,047.9462 ml @ 44 mls/hr [id number] IV 04/06/25 22:00 04/06/25 22:00 Cancel Cefepime HCl 50 ml @ 12.5 mls/hr Q12HR@0600,1800 IV 04/07/25 06:00 04/14/25 06:18 12.5 MLS/HR Micafungin Sodium 100 mg/Sodium Chloride 100 ml @ 100 mls/hr DAILY IV 04/07/25 10:00 04/14/25 10:32 100 MLS/HR Doxycycline Hyclate 100 ml @ 50 mls/hr Q12H IV 04/06/25 14:45 04/14/25 01:51 50 MLS/HR Enteral Nutritional Formula 1,000 ml 40ML/HR GT 04/06/25 15:15 04/11/25 17:08 1,000 ML Amino Acid Protein 30 ml DAILY PO 04/07/25 10:00 04/12/25 07:57 30 ML Albuterol 2.5 mg Q8H NEB 04/07/25 14:00 04/14/25 06:50 2.5 MG Ipratropium [place] 0.5 mg Q8H NEB 04/07/25 14:00 04/14/25 06:50 0.5 MG Polyethylene Glycol 17 gm DAILY PO 04/09/25 10:00 04/11/25 08:37 17 GM Sodium Chloride 10 ml QSHIFT@10,22 IV 04/09/25 22:00 04/14/25 10:30 10 ML Methylprednisolone Sodium Succinate 40 mg BID IV 04/11/25 22:00 04/14/25 10:29 40 MG Ondansetron HCl 4 mg Q4HPRN PRN IV 04/12/25 22:45 Examination Patient lying in bed General: Patient is alert, following commands, Extubated HEENT: Normocephalic, atraumatic, moist mucous membranes Respiratory/pulmonary: diminished breath sounds bilaterally. Cardiovascular: Normal heart sounds S1 and S2 with no associated murmurs Abdomen: Abdomen nondistended, there is no pain to palpation in any of the abdominal quadrants, no palpable masses. Extremities: There is no peripheral edema present at the lower extremities. Peripheral Pulses: 3+ Radial (R). 3+ Radial (L). 3+ Dorsalis pedis (R). 3+ Dorsalis pedis(L) Skin: Multiple skin tears, no sacral wound present, Neurological: Pupils reactive, gag and cough reflex present laboratory and microbiology Laboratory Tests 04/14/25 01:40 Test 04/14/25 01:40 Range/Units Serum Glucose 99 74-106 mg/dL Microbiology Date/Time Source Procedure Growth Status 04/12/25 22:58 Stool Stool Culture - Preliminary Resulted 04/12/25 22:58 Stool Shiga Toxin I & II - Final Resulted 04/05/25 08:00 Nose MRSA Screen - Final Complete 04/03/25 10:00 Sputum Endotracheal Wash Gram Stain - Final Resulted 04/03/25 10:00 Sputum Endotracheal Wash Respiratory Culture - Preliminary Resulted 04/02/25 20:04 Blood Blood Culture - Final NO GROWTH AFTER 5 DAYS OF INCUBATION. Complete Problem List/Assessment/Plan Problem List/Assessment/Plan Neurology Acute metabolic/hypoxic encephalopathy likely due to COPD exacerbation - Mechanically ventilated, sedated: RASS score -3 - ventilator setting: on AC mode; RR 20,VT 350, Fio2-35%, PEEP-5 - neurology on board - Ordered MRI of head and Neck, MRA angio of neck Cardiology Chronic diastolic Congestive heart failure - as per daughter EF of 50% Respiratory Sepsis likely due to below Acute on chronic hypoxic respiratory failure secondary to acute COPD exacerbation/ pneumonia Acute G +/- Bacterial PNA possible atelectasis - continue bronchodilators, - continue Solu-Medrol 40 mg - chest xray: Slight interval advancement of the endotracheal tube such that the tip now projects approximately 3.9 cm above the level of the vani. Remaining lines and tubes unchanged. Stable chronic appearing bilateral interstitial pulmonary markings and mild bibasilar pulmonary airspace disease - IV metronidazole, azithromycin changed to doxycycline, cefepime, micafungin - respiratory culture -showed for filamentous fungi -Chest CT showed lower lobe consolidation, multiple small foci, severe centrilobar Emphysema. GI/Liver Cachexia BMI 15.3 Severe protein malnutrition Slow transit constipation - Miralax Hematology Anemia of chronic disease Iron deficiency anemia - monitor hemoglobin Renal Electrolytes hyponatremia hypocalcemia hypophosphatemia - replete electrolytes - Monitor electrolytes Lines/tubes/devices Airway: Intubated via ETT on 04/03/25 , extubated on 04/13/25 Vascular access: Central line Rt IJ 04/05 and Rt femoral 04/03 Drips: Fentanyl, midazolam Diet: Soft mechanical diet DVT prophylaxis: Lovenox GI prophylaxis: Protonix Great discussion taken place with Daughter for 37 mins about patients condition and poor prognosis, and possible Tracheostomy. Goals of car discussed with family for more than 29 minutes : Full code Care plan updated to the family, critical time spent more than 54 minutes excluding procedures Case discussed with Dr. Rothman , RN Plan discussed with: Daughter My Orders My Orders Orders - CRICKET GUAMAN RESIDENT Procedure Category Date Status Time Chest Xray 1 View XY 04/14/25 Resulted 04:00 Abg W/ Co-Ox RT 04/14/25 Logged 04:00 Dietary Evaluation Review Comments: 1) If patient remains NPO > 7 days, consider EN/TPN to meet at least 75% estimated daily needs 2) If gut is preferred, initiate Vital High Protein @ 40 mL/hr goal rate as tolerated. Flush with 50 mL free H2O Q6H. EN regimen will provide 960 kcals, 84g Pro, and 1003 mL free H2O (including TF flushes) per 24 hrs. Goal rate will meet ~ 95% estimated energy needs and ~ 93% estimated protein needs 3) Advance to cardiac diet when medically feasible, pending ST approval 4) Refer to outpatient RD for weight management 5) Follow-up with cardiology and pulmonology 6) Continue to monitor I&O, labs, and skin integrity Expected Outcomes/Goals: 1) patient to receive nutritional support within 7 days of NPO status 2) labs to improve 3) diet to advance 4) gradual wt gain 5) f/u in 2-3 days Date of Service: Apr 14, 2025 Billing Provider: REBECCA BRIGGS MD Common Visit Codes: 11097-JALNWYTH CARE 30-74 MIN CRICKET GUAMAN RESIDENT Apr 14, 2025 11:24 REBECCA BRIGGS MD Apr 15, 2025 12:26
[2025-04-14] MEDS: ALBUTEROL SULF 2.5 MG/0.5ML(0.5%) NEB SOLN NEB SCH (19:34)
[2025-04-14] MEDS: methylPREDNISolone SOD SUCC 40 MG/ML VL IV SCH (21:06)
--- NOTE | 2025-04-14 21:18 | DVHPN2 ---
Consult Progress Note Objective vital signs Vital Sign Date Time Temp Pulse Resp B/P (MAP) Pulse Ox O2 Delivery O2 Flow Rate FiO2 04/14/25 21:00 98.2 109 19 133/81 (98) 100 98.2 04/14/25 20:28 Nasal Cannula 2.0 04/14/25 20:28 28 Total Intake and Output 04/13/25 04/13/25 04/14/25 15:00 23:00 07:00 Intake Total 200 ml 212.5 ml 100 ml Output Total 300 ml 450 ml Balance 200 ml -87.5 ml -350 ml medications Current Medications Medications Dose Ordered Sig/Guy Route Start Time Stop Time Status Last Admin Dose Admin Famotidine 20 mg Q12HR IV 04/03/25 10:00 04/14/25 21:05 20 MG Docusate Sodium 100 mg BIDPRN PRN PO 04/02/25 23:15 Acetaminophen 650 mg Q6HP PRN PO 04/02/25 23:15 04/14/25 10:34 650 MG Nitroglycerin 0.4 mg Q5MINP PRN SL 04/03/25 00:00 Norepinephrine Bitartrate 250 ml @ 3.75 mls/hr Q24H IV 04/03/25 10:00 UNV Acetaminophen 650 mg Q6HP PRN [place] 04/03/25 20:15 Fat Emulsion Intravenous 50 ml/ Sodium Chloride 40 meq/Potassium Chloride 20 meq/ Potassium Phosphate 44 meq/ Calcium Gluconate 2.3 meq/Magnesium Sulfate 8 meq/ Multivitamins 10 ml/Chromium/ Copper/Manganese/ Zinc 1 ml/Amino Acids/Dextrose/ Purified Water 1,047.9462 ml @ 44 mls/hr [id number] IV 04/06/25 22:00 04/06/25 22:00 Cancel Doxycycline Hyclate 100 ml @ 50 mls/hr Q12H IV 04/06/25 14:45 04/14/25 14:33 50 MLS/HR Amino Acid Protein 30 ml DAILY PO 04/07/25 10:00 04/12/25 07:57 30 ML Ipratropium [place] 0.5 mg Q8H NEB 04/07/25 14:00 04/14/25 13:50 0.5 MG Polyethylene Glycol 17 gm DAILY PO 04/09/25 10:00 04/11/25 08:37 17 GM Sodium Chloride 10 ml QSHIFT@10,22 IV 04/09/25 22:00 04/14/25 21:06 10 ML Ondansetron HCl 4 mg Q4HPRN PRN IV 04/12/25 22:45 Methylprednisolone Sodium Succinate 20 mg BID IV 04/14/25 22:00 04/14/25 21:06 20 MG Albuterol 2.5 mg PRN NEB 04/15/25 06:00 04/14/25 19:34 2.5 MG Albuterol 2.5 mg Q2HPRN PRN NEB 04/14/25 14:45 laboratory and microbiology Laboratory Tests 04/14/25 01:40 Test 04/14/25 01:40 Range/Units Serum Glucose 99 74-106 mg/dL Problem List/Assessment/Plan Problem List/Assessment/Plan Today's Encounter Date: 04/06/2025 Patient Name: Pao Provider: Gordon Coley ASSESSMENT AND PLAN: ID Problem List: -Community-acquired pneumonia (CXR: patchy right > left opacities) -Septic shock (ICU transfer in the setting of pneumonia; BP 94/54 noted) -Acute on chronic respiratory failure with hypercapnia (pH 7.35, pCO2 83.1) requiring mechanical ventilation -Suspected COPD exacerbation related to pneumonia -Prolonged QTc (503 ms) fluoroquinolones avoided -Penicillin allergy (unknown reaction, since 2021) -Leukocytosis (WBC 22.5 K/L) -Anemia (Hgb 9.7 g/dL) -Hyponatremia (Na 133 mmol/L) -History of CHF, GERD, anxiety, hypertension, hyperlipidemia; chronic hypotension noted Assessment This is a 59 y.o. female with a past medical history of CHF, anxiety, COPD, GERD, hypertension, hyperlipidemia, and chronic hypotension who presents with shortness of breath and hypoxemia (desaturation to 70% on 6 L NC). ED CXR showed patchy right greater than left opacities favoring infection; admitted for pneumonia. Transferred to ICU for septic shock in the setting of pneumonia. Viral testing (influenza A/B, COVID-19) negative. UA without growth. Blood cultures no growth to date (04/05). ABG with hypercapnia (pH 7.35, pCO2 83.1). BNP 38.81. EKG with QTc 503 ms. Preliminary sputum culture with rare filamentous fungi (awaiting further results). The clinical picture is consistent with pneumonia with concurrent COPD exacerbation and hypercapnic respiratory failure requiring mechanical ventilation. 04/05: CXR with improved pneumonia, persistent fevers, improved levophed 04/06: prolonged qtc , fungi filamentous on cxr Plan: -Antimicrobials: -stop azithromycin and flagyl, swich to cefepime and doxycycline -start micafungin - test for cocci and aspergillus - agree with chest CT -Avoid fluoroquinolones due to prolonged QTc. -Follow up sputum culture results; adjust therapy per susceptibilities. -Follow up blood cultures; currently no growth to date (04/05). -Respiratory: -Mechanical ventilation management per electronic masking system operator team; current settings documented below. -Wean as tolerated to high-flow nasal cannula when appropriate. -COPD therapies per pulmonology: bronchodilators, systemic steroids, mucolytics. -Monitoring: -Monitor temperature curve; if persistent fevers, reassess antimicrobial coverage. -Repeat chest X-ray daily. -Maintain MAP > 65 mmHg; titrate vasoactive support as needed. -Monitor QTc; continue to avoid QT-prolonging agents where feasible. 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 -Diagnostics: -Recommend sputum culture (pending/follow-up). -Continue to monitor labs (CBC, BMP, lactate) and ABGs as clinically indicated. Authorized and Performed by: Gordon Coley Total critical care time: Approximately 76 minutes Due to a high probability of clinically significant, life threatening deterioration, the patient required my highest level of preparedness to intervene emergently and I personally spent this critical care time directly and personally managing the patient. This critical care time included obtaining a history; examining the patient; pulse oximetry; ordering and review of studies; arranging urgent treatment with development of a management plan; evaluation of patient's response to treatment; frequent reassessment; and, discussions with other providers. This critical care time was performed to assess and manage the high probability of imminent, life-threatening deterioration that could result in multi-organ failure. It was exclusive of separately billable procedures and treating other patients and teaching time. Isolation Precautions: Not provided in transcript. \ Physical Exam: General: NAD Neck: Supple. No masses. HEENT: PERRL. Normal lids and conjunctiva. Moist mucous membranes. Oropharynx without lesions, exudates or excessive erythema. Normal appearance of the external aspects of the nose and ears. Heart: Regular rhythm, normal rate. No murmur. No lower extremity edema. Lungs: Normal respiratory effort. Clear to auscultation bilaterally. Wheezes present. Patient is mechanically ventilated. Abdomen: Soft. Non-tender. Non-distended. No masses or abdominal hernia. Msk: No digital cyanosis. Normal strength and tone in all 4 limbs Skin: Warm and dry, no rashes. Neuro: Alert. No facial droop or slurred speech. Extra-ocular movements intact. Sensation intact to soft touch in all 4 limbs. Psych: Appropriate mood. Full affect. Oriented to person, place, time, and situation. Dietary Evaluation Review Comments: 1) If patient remains NPO > 7 days, consider EN/TPN to meet at least 75% estimated daily needs 2) If gut is preferred, initiate Vital High Protein @ 40 mL/hr goal rate as tolerated. Flush with 50 mL free H2O Q6H. EN regimen will provide 960 kcals, 84g Pro, and 1003 mL free H2O (including TF flushes) per 24 hrs. Goal rate will meet ~ 95% estimated energy needs and ~ 93% estimated protein needs 3) Advance to cardiac diet when medically feasible, pending ST approval 4) Refer to outpatient RD for weight management 5) Follow-up with cardiology and pulmonology 6) Continue to monitor I&O, labs, and skin integrity Expected Outcomes/Goals: 1) patient to receive nutritional support within 7 days of NPO status 2) labs to improve 3) diet to advance 4) gradual wt gain 5) f/u in 2-3 days GORDON COLEY MD Apr 14, 2025 21:18
[2025-04-15] VITALS (35 sets, daily range): BP systolic 73–131; BP diastolic 24–88; PULSE 98–123; RESP 14–25; TEMP 97–98.3; O2SAT 88–100
--- NOTE | 2025-04-15 04:45 | DVH ---
CHEST RADIOGRAPH Indication: on vent Technique: Single frontal view of the chest was obtained COMPARISON: XY CHEST XRAY 1 VIEW on DOS: 04/14/25, XY CHEST XRAY 1 VIEW on DOS: 04/13/25, XY CHEST XRAY 1 VIEW on DOS: 04/12/25, XY CHEST XRAY 1 VIEW on DOS: 04/11/25, XY CHEST XRAY 1 VIEW on DOS: 04/10/25 FINDINGS: Lines and Tubes: Left PICC in satisfactory position. Lungs: Lungs are hyperinflated suggestive of COPD. Increased right lower lobe airspace disease. Pleura: No effusion. No pneumothorax. Cardiomediastinal contours: Unremarkable Bones: Unremarkable IMPRESSION: Increased right lower lobe airspace disease.
[2025-04-15 06:03] LABS: Hematocrit 28.9 % (36.0-46.0); Hemoglobin 9.3 g/dL (12.2-16.2); Mean Corpuscular Hemoglobin 31.0 pg (28.0-32.0); Mean Corpuscular Volume 95.9 fL (80.0-100.0); Nucleated Red Blood Cells % 0.0 %
[2025-04-15 06:16] LABS: Anion Gap 7 (5-15); Chloride 99 mmol/L (98-107); Potassium 4.4 mmol/L (3.5-5.1); Sodium 139 mmol/L (136-145)
[2025-04-15 06:22] LABS: BUN/Creatinine Ratio 37.2 (10.0-20.0); Blood Urea Nitrogen 16 mg/dL (9-23)
[2025-04-15 06:24] LABS: Calcium 8.3 mg/dL (8.7-10.4); Carbon Dioxide 33 mmol/L (20-31); Glucose 145 mg/dL (74-106)
[2025-04-15] MEDS: methylPREDNISolone SOD SUCC 40 MG/ML VL IV SCH (09:28)
--- NOTE | 2025-04-15 10:23 | DVHPN2 ---
Progress Note - Dictate Date Seen: Apr 15, 2025 Medical Necessity Reason Pt with a Central, PICC or Fol: Yes The following are medically ne: Central Line, Chin Catheter Subjective Ms. Cedeno is a 59 years old female with a history of hypotension, dyslipidemia, congestive heart failure, COPD, GERD, anxiety, she was brought to the [facility] on 03/30/2025 with a chief complaint of shortness breath. I have seen and examined the patient, I have discussed with her nurse medical staff, she is awake, oriented x3, but is very weak, only speak with weak voice, she reports the bedroom last night. Our staff reports that she did not sleep last night and she is sleepy now. She did not use sleeping pills at home She has 6 L of oxygen Overall, she is not doing well today Pupil size: In the morning on 04/05/2025: Equal. Early afternoon: right: 3 mm, left: 5 mm. around 6:30PM, right: 2 mm, left: 3 mm, sluggish light reflexes 04/06/2025: Rt: 3, Lt: 3-4. 04/07/25: Rt: 2mm, Lt: 3mm 04/08/2025: Rt: 2mm, Lt: 3mm 04/08/2025: Rt: 2mm, Lt: 2mm 04/11/2025: Rt: 2mm, Lt: 4mm 04/12/2025: Rt: 2mm, Lt: 4mm 04/13/2025: Rt: 2mm, Lt: 4mm 04/14/2025: Rt: 2mm, Lt: 4mm Blood culture, 04/02/2025: Negative UDS, 04/02/2025: Negative Plasma alcohol, 04/02/2025: <3 Urinalysis, 04/02/2025: WBC: 1, urine leukocyte esterase: Negative ABG, 04/05/2025: Carbon dioxide retention WBC/HB/PLT/MCV, 04/02/2025: 22.5/9.7/236/95.6, 04/03/2025: 71.9/10.8/245/96.3, 04/04/2025: 26.6/9.8/251/95.5, 04/06/2025: 14.5/8.8/278/93.6, 04/08/2025: 15.5/8.9/234/93.6 CMP, 04/04/2025: Unremarkable Chest x-ray, 04/02/2025: Patchy [id number]-left bibasilar opacities, favoring infection Chest x-ray 04/05/2025: 1. Endotracheal tube 5.8 cm above the vani 2. Right internal jugular catheter in place at the cavoatrial junction. 3. Enteric tube below the left diaphragm less likely in the stomach. 4. IMPROVING airspace disease right lower lobe. Chest x-ray, 04/08/2025: 1. No acute cardiopulmonary disease. 2. Lines and tubes unchanged. Chest x-ray, 04/15/2025: Increased right lower lobe airspace disease CT head, 04/05/2025:1. No evidence of acute intracranial abnormality. 2. Mild subcortical and periventricular low attenuation, nonspecific but most commonly associated with sequelae of chronic microvascular ischemic changes although other etiologies are not excluded. vital signs Vital Sign Date Time Temp Pulse Resp B/P (MAP) Pulse Ox O2 Delivery O2 Flow Rate FiO2 04/15/25 09:00 97.0 108 15 123/83 (96) 98 97.0 04/15/25 05:56 Nasal Cannula 4.0 04/15/25 05:56 36 Total Intake and Output 04/14/25 04/14/25 04/15/25 15:00 23:00 07:00 Intake Total 50 ml 100 ml 500 ml Output Total 350 ml 300 ml Balance 50 ml -250 ml 200 ml medications Current Medications Medications Dose Ordered Sig/Guy Route Start Time Stop Time Status Last Admin Dose Admin Famotidine 20 mg Q12HR IV 04/03/25 10:00 04/15/25 09:28 20 MG Docusate Sodium 100 mg BIDPRN PRN PO 04/02/25 23:15 Acetaminophen 650 mg Q6HP PRN PO 04/02/25 23:15 04/14/25 10:34 650 MG Nitroglycerin 0.4 mg Q5MINP PRN SL 04/03/25 00:00 Norepinephrine Bitartrate 250 ml @ 3.75 mls/hr Q24H IV 04/03/25 10:00 UNV Acetaminophen 650 mg Q6HP PRN [place] 04/03/25 20:15 Fat Emulsion Intravenous 50 ml/ Sodium Chloride 40 meq/Potassium Chloride 20 meq/ Potassium Phosphate 44 meq/ Calcium Gluconate 2.3 meq/Magnesium Sulfate 8 meq/ Multivitamins 10 ml/Chromium/ Copper/Manganese/ Zinc 1 ml/Amino Acids/Dextrose/ Purified Water 1,047.9462 ml @ 44 mls/hr [id number] IV 04/06/25 22:00 04/06/25 22:00 Cancel Doxycycline Hyclate 100 ml @ 50 mls/hr Q12H IV 04/06/25 14:45 04/15/25 02:56 50 MLS/HR Amino Acid Protein 30 ml DAILY PO 04/07/25 10:00 04/12/25 07:57 30 ML Ipratropium [place] 0.5 mg Q8H NEB 04/07/25 14:00 04/15/25 05:56 0.5 MG Polyethylene Glycol 17 gm DAILY PO 04/09/25 10:00 04/11/25 08:37 17 GM Sodium Chloride 10 ml QSHIFT@10,22 IV 04/09/25 22:00 04/15/25 09:28 10 ML Ondansetron HCl 4 mg Q4HPRN PRN IV 04/12/25 22:45 Albuterol 2.5 mg Q2HPRN PRN NEB 04/14/25 14:45 Methylprednisolone Sodium Succinate 20 mg DAILY IV 04/15/25 10:00 04/15/25 09:28 20 MG Albuterol 2.5 mg Q8HR NEB 04/15/25 14:00 objective The patient is well-nourished and well-developed with no distress. MENTAL STATUS: Subjective CRANIAL NERVES: Pupils are round and reactive, no associated abnormal vascular dilatation and skin secretion. There are corneal reflexes and doll's eyes phenomenon. No signs of facial weakness SENSATION: Normal to light touch the pinprick MOTOR: Normal tone in the upper and lower extremity. Normal muscle bulk. No fasciculations. Moves the arms and the legs REFLEXES: Deep tendon reflexes are symmetrical. No pathological reflexes. CEREBELLAR/COORDINATION: Finger-nose test is fine GAIT/STATION: deferred laboratory and microbiology Laboratory Tests 04/15/25 04:55 Test 04/15/25 04:55 Range/Units Serum Glucose 145 H 74-106 mg/dL Problem List Altered mental status, resolved Hypoxic encephalopathy Metabolic encephalopathy Toxic encephalopathy Acute on chronic respiratory failure Pneumoniae, Leukocytosis/sepsis Anisocoria Etiology unclear Cachexia Assessment/Plan Monitoring Supportive treatment Telemetry Oxygen Respiratory support RI IV antibiotics Oxygen More recommendation per clinical course This medical document was created using an electronic medical record system with [employer] dictation system. Although this document has been carefully reviewed, there may still be some phonetic and typographical errors. These areas are purely typographical due to imperfections of the software programs, and do not reflect any compromise in the patient's medical care. Prognosis poor Dietary Evaluation Review Comments: 1) If patient remains NPO > 7 days, consider EN/TPN to meet at least 75% estimated daily needs 2) If gut is preferred, initiate Vital High Protein @ 40 mL/hr goal rate as tolerated. Flush with 50 mL free H2O Q6H. EN regimen will provide 960 kcals, 84g Pro, and 1003 mL free H2O (including TF flushes) per 24 hrs. Goal rate will meet ~ 95% estimated energy needs and ~ 93% estimated protein needs 3) Advance to cardiac diet when medically feasible, pending ST approval 4) Refer to outpatient RD for weight management 5) Follow-up with cardiology and pulmonology 6) Continue to monitor I&O, labs, and skin integrity Expected Outcomes/Goals: 1) patient to receive nutritional support within 7 days of NPO status 2) labs to improve 3) diet to advance 4) gradual wt gain 5) f/u in 2-3 days Plan discussed with: Other Total Time (mins): 35 RAMAN LAWTON MD Apr 15, 2025 10:23
[2025-04-15] MEDS ORDERED: ALBUTEROL SULF 2.5 MG/0.5ML(0.5%) NEB SOLN NEB SCH (12:00)
[2025-04-15] MEDS: FLUCONAZOLE 200MG/100ML 100 ML IV ONE (13:03)
[2025-04-15] MEDS: ALBUTEROL SULF 2.5 MG/0.5ML(0.5%) NEB SOLN NEB SCH (14:40)
--- NOTE | 2025-04-15 16:35 | DVHPNRES ---
Progress Note Date Seen: Apr 15, 2025 Resident Creating Document: CRICKET GUMAAN RESIDENT Medical Necessity Reason Pt with a Central, PICC or Fol: Yes The following are medically ne: Central Line, Chin Catheter Subjective Review of Systems Patient is a 59 year old female with past medical history of CHF, Chronic obstructive pulmonary disease, GERD, hyperlipidemia who presented to hospital with chief complaints of shortness of breath. As per daughter patient had increased work of breathing, uses home oxygen 2 L, which was increased to 6 L at home for which saturation improved to 94%. Patient in the ER became altered and was intubated on 04/03/25. as per daughter echocardiogram showed 50% in [facility]. x-ray showed Stable chronic appearing bilateral interstitial pulmonary markings and mild bibasilar pulmonary airspace disease. Past surgical history: Tonsillectomy family history: reviewed, noncontributory Social history: per daughter patient has smoked since she was 15 years old and nicotine vape, used methamphetamine 04/11/25: Patient seen in ICU. on cpap trial, on pressure support control, pulling 400 ml volume Psupport 10 and Peep 5 mm hg. plan for cpap trial tomorrow. 04/12/25: Patient seen in ICU. CPAP trial failed. NIf -13. we will try again tomorrow. 04/13/25: Patient seen in the ICU. patient was successfully extubated today. We will keep monitoring oxygen saturation, or possible need for BiPAP. Patient's daughter at bedside was explained about patient's condition and prognosis. 04/14/2025: Patient seen at the ICU. Patient was successfully extubated yesterday. Patient is on 2 L oxygen. physical therapy tomorrow. Patient's passed swallow eval and diet was switched to soft mechanical diet. 04/15/25: Patient seen at the ICU. Patient is on 3 L oxygen. Patients diet changed to purred diet. discussion done with Daughter about patients condition and recommended discharge to snf. Consulted SS for SNF placement. Added IV fluconazole, and cefepime. Patient had a bowel movement . Objective vital signs Vital Sign Date Time Temp Pulse Resp B/P (MAP) Pulse Ox O2 Delivery O2 Flow Rate FiO2 04/15/25 14:46 111 20 98 04/15/25 14:40 Nasal Cannula* 4 36 04/15/25 09:00 97.0 123/83 (96) 97.0 Total Intake and Output 04/14/25 04/14/25 04/15/25 15:00 23:00 07:00 Intake Total 50 ml 100 ml 500 ml Output Total 350 ml 300 ml Balance 50 ml -250 ml 200 ml medications Current Medications Medications Dose Ordered Sig/Guy Route Start Time Stop Time Status Last Admin Dose Admin Famotidine 20 mg Q12HR IV 04/03/25 10:00 04/15/25 09:28 20 MG Docusate Sodium 100 mg BIDPRN PRN PO 04/02/25 23:15 Acetaminophen 650 mg Q6HP PRN PO 04/02/25 23:15 04/14/25 10:34 650 MG Nitroglycerin 0.4 mg Q5MINP PRN SL 04/03/25 00:00 Norepinephrine Bitartrate 250 ml @ 3.75 mls/hr Q24H IV 04/03/25 10:00 UNV Acetaminophen 650 mg Q6HP PRN SC 04/03/25 20:15 Fat Emulsion Intravenous 50 ml/ Sodium Chloride 40 meq/Potassium Chloride 20 meq/ Potassium Phosphate 44 meq/ Calcium Gluconate 2.3 meq/Magnesium Sulfate 8 meq/ Multivitamins 10 ml/Chromium/ Copper/Manganese/ Zinc 1 ml/Amino Acids/Dextrose/ Purified Water 1,047.9462 ml @ 44 mls/hr [id number] IV 04/06/25 22:00 04/06/25 22:00 Cancel Amino Acid Protein 30 ml DAILY PO 04/07/25 10:00 04/12/25 07:57 30 ML Ipratropium [place] 0.5 mg Q8H NEB 04/07/25 14:00 04/15/25 14:40 0.5 MG Polyethylene Glycol 17 gm DAILY PO 04/09/25 10:00 04/11/25 08:37 17 GM Sodium Chloride 10 ml QSHIFT@10,22 IV 04/09/25 22:00 04/15/25 09:28 10 ML Ondansetron HCl 4 mg Q4HPRN PRN IV 04/12/25 22:45 Albuterol 2.5 mg Q2HPRN PRN NEB 04/14/25 14:45 Methylprednisolone Sodium Succinate 20 mg DAILY IV 04/15/25 10:00 04/15/25 09:28 20 MG Albuterol 2.5 mg Q8HR NEB 04/15/25 14:00 04/15/25 14:40 2.5 MG Fluconazole 100 ml @ 100 mls/hr DAILY IV 04/16/25 10:00 Cefepime HCl 50 ml @ 12.5 mls/hr Q12HR IV 04/15/25 22:00 laboratory and microbiology Laboratory Tests 04/15/25 04:55 Test 04/15/25 04:55 Range/Units Serum Glucose 145 H 74-106 mg/dL Microbiology Date/Time Source Procedure Growth Status 04/12/25 22:58 Stool Stool Culture - Preliminary Resulted 04/12/25 22:58 Stool Shiga Toxin I & II - Final Resulted 04/05/25 08:00 Nose MRSA Screen - Final Complete 04/03/25 10:00 Sputum Endotracheal Wash Gram Stain - Final Resulted 04/03/25 10:00 Sputum Endotracheal Wash Respiratory Culture - Preliminary Resulted 04/02/25 20:04 Blood Blood Culture - Final NO GROWTH AFTER 5 DAYS OF INCUBATION. Complete Problem List/Assessment/Plan Problem List/Assessment/Plan Neurology Acute metabolic/hypoxic encephalopathy likely due to COPD exacerbation - Mechanically ventilated, sedated: RASS score -3 - ventilator setting: on AC mode; RR 20,VT 350, Fio2-35%, PEEP-5 - neurology on board - Ordered MRI of head and Neck, MRA angio of neck Cardiology Chronic diastolic Congestive heart failure - as per daughter EF of 50% Respiratory Sepsis likely due to below Acute on chronic hypoxic respiratory failure secondary to acute COPD exacerbation/ pneumonia Acute G +/- Bacterial PNA possible atelectasis - continue bronchodilators, - continue Solu-Medrol 40 mg - chest xray: Slight interval advancement of the endotracheal tube such that the tip now projects approximately 3.9 cm above the level of the vani. Remaining lines and tubes unchanged. Stable chronic appearing bilateral interstitial pulmonary markings and mild bibasilar pulmonary airspace disease - IV metronidazole, azithromycin changed to doxycycline, cefepime, micafungin - Fluconazole, cefepime,(04/15) - respiratory culture -showed for filamentous fungi - Chest CT showed lower lobe consolidation, multiple small foci, severe centrilobar Emphysema. GI/Liver Cachexia BMI 15.3 Severe protein malnutrition Slow transit constipation - Miralax Hematology Anemia of chronic disease Iron deficiency anemia - monitor hemoglobin Renal Electrolytes hyponatremia hypocalcemia hypophosphatemia - replete electrolytes - Monitor electrolytes Lines/tubes/devices Airway: Intubated via ETT on 04/03/25 , extubated on 04/13/25 Vascular access: Central line Rt IJ 04/05 and Rt femoral 04/03 Drips: Fentanyl, midazolam Diet: Soft mechanical diet DVT prophylaxis: Lovenox GI prophylaxis: famotidine Great discussion taken place with Daughter for 37 mins about patients condition and poor prognosis, and possible Tracheostomy. Goals of car discussed with family for more than 29 minutes : Full code Care plan updated to the Daughter, critical time spent more than 54 minutes excluding procedures Case discussed with Dr. Rothman , RN Plan discussed with: Daughter My Orders My Orders Orders - CRICKET GUAMAN Procedure Category Date Status Time Methylprednisolone PHA 04/15/25 In Process Sod Succ (Solu Medrol 10:00 Albuterol Medneb PHA 04/15/25 In Process (Ventolin Medneb) 14:00 Pureed DIET 04/15/25 Transmitted Lunch Dietary Evaluation Review Comments: 1) If patient remains NPO > 7 days, consider EN/TPN to meet at least 75% estimated daily needs 2) If gut is preferred, initiate Vital High Protein @ 40 mL/hr goal rate as tolerated. Flush with 50 mL free H2O Q6H. EN regimen will provide 960 kcals, 84g Pro, and 1003 mL free H2O (including TF flushes) per 24 hrs. Goal rate will meet ~ 95% estimated energy needs and ~ 93% estimated protein needs 3) Advance to cardiac diet when medically feasible, pending ST approval 4) Refer to outpatient RD for weight management 5) Follow-up with cardiology and pulmonology 6) Continue to monitor I&O, labs, and skin integrity Expected Outcomes/Goals: 1) patient to receive nutritional support within 7 days of NPO status 2) labs to improve 3) diet to advance 4) gradual wt gain 5) f/u in 2-3 days Date of Service: Apr 15, 2025 Billing Provider: REBECCA BRIGGS MD Common Visit Codes: 52222-LIGZREFK CARE 30-74 MIN CRICKET GUAMAN Apr 15, 2025 16:35 REBECCA BRIGGS MD Apr 16, 2025 12:10
[2025-04-15] MEDS: ALBUTEROL SULF 2.5 MG/0.5ML(0.5%) NEB SOLN NEB PRN (18:29)
[2025-04-15] MEDS: ROCURONIUM 10MG/ML 10ML VIAL IV ONE (19:07)
[2025-04-15] MEDS: fentaNYL Drip 2500mCg/250mlNS 250 ML IV ONE (19:11)
[2025-04-15] MEDS: MIDAZOLAM DRIP 100 mg/100mL NS 100 ML IV ONE (19:11)
[2025-04-15] MEDS: NOREPINEPHRINE 8 MG/250ML KIT 250 ML IV ONE (19:11)
--- NOTE | 2025-04-15 19:23 | DVH ---
CHEST RADIOGRAPH Indication: aspiration Technique: Single frontal view of the chest was obtained Comparison: XY CHEST XRAY 1 VIEW on DOS: 04/15/25, XY CHEST XRAY 1 VIEW on DOS: 04/14/25, XY CHEST XRAY 1 VIEW on DOS: 04/13/25 FINDINGS: Lines and Tubes: None Lungs: Right lower lobe infiltrate and pleural effusion. Without significant change from chest x-ray done 04/15/2025 at 4:00 a.m. Pleura: Right pleural effusion No pneumothorax. Cardiomediastinal contours: Unremarkable Bones: No acute osseous abnormality. IMPRESSION: 1. Stable right lower lobe infiltrate and pleural effusion unchanged from 0400 done same day.
--- NOTE | 2025-04-15 19:39 | DVH ---
CHEST RADIOGRAPH Indication: intubation Technique: Single frontal view of the chest was obtained COMPARISON: XY CHEST PORTABLE on DOS: 04/15/25, XY CHEST XRAY 1 VIEW on DOS: 04/15/25, XY CHEST XRAY 1 VIEW on DOS: 04/14/25, XY CHEST XRAY 1 VIEW on DOS: 04/13/25, XY CHEST XRAY 1 VIEW on DOS: 04/12/25 FINDINGS: ET tube tip terminating 4.7 cm above the vani. Left-sided PICC line with tip near the cavoatrial junction. Stable small to moderate right-sided pleural effusion with hazy opacity throughout the right mid and lower lung. Left lung remains generally clear. No significant pneumothorax. IMPRESSION: ET tube tip terminating 4.7 cm above the vani. Stable right-sided pleural effusion with right basilar atelectasis /consolidation.
--- NOTE | 2025-04-15 19:43 | RESUS ---
CODE ASSIST ASSESSSMENT Initial Information Code Assist Date: Apr 15, 2025 Code Assist Time: 18:50 Location of Arrest: [facility] Room # 216-B Provider Name Jakob Aleman MD, Rhonda Aleman MD, Dr Gudino Time Notified: 18:50 Time PMD returned call: 18:52 (Bedside) Crash Cart Opened and Supplies: No Situation Staff concerned/worried, speci: Non-responsive, Change LOC Situation comment: Per primary nurse Nydia CLARK, fany 45 minutes prior patient complained of shortness of breath. RT was paged and breathing treatment was given. Patient responded to treatment and felt better. When nurse came back to check on her she found her "unresponsive and drooling." She preceded to call rapid response. Background Background: Hx: CHF and COPD with home O2. Patient was originally brought to hospital for complaint of shortness of breath. Previously intubated. Assessment Blood Pressure Systolic: 107 Blood Pressure Diastolic: 67 Respiratory Rate: 12 O2 Sat by Pulse Oximetry: 93 Bedside Blood Glucose: 159 Assessment comment: 1846: EKG done= ST 110 1857: BP 113/59, HR 111, O2sat 94% NRB 1899: Dr. Gudino at bedside. 1905: Etomidate 20 mg IVP x1, BP 113/61, HR 112, O2sat 96% 1906: Rocuronium 50 mg IVP x1 1906: Intubated post 1 attempt with a 7.5 ET tube, secured 22 lip, by Rhonda Aleman MD with Dr Gudino at bedside. 1909: BP 63/37, HR 123, O2sat 100% 1914: Portable chest xray done at bedside- Levophed gtt started per provider orders. See EMAR. Recommendations/Interventions Procedures: Accu check, ABG, CXR Portable, CMP, CBC, EKG, Cardiac Monitoring, Suctioned, Intubated, O2 Mask/NC Other Interventions Lactic Acid and Magnesium level ordered as well. Outcome Outcome: Transfer to ICU (265) Follow up Report Follow up Report Patient intubated without difficulty. Will be transferred to ICU 265. Kaya CLARK taking over care post 1914. Team Members Team Members Jakob Aleman MD, Rhonda Aleman MD, Dr. Gudino, Nydia RN, Jessica RN, Slim RN, Dominga RN, Lisa RN, Milagros CLARK, Kaya rn, Miah RN, Jamie RT, Lori RT, Sandrita Ball RN Apr 15, 2025 19:43
[2025-04-15 20:01] LABS: Hematocrit 30.2 % (36.0-46.0); Hemoglobin 9.6 g/dL (12.2-16.2); Mean Corpuscular Hemoglobin 31.1 pg (28.0-32.0); Mean Corpuscular Volume 98.2 fL (80.0-100.0); Nucleated Red Blood Cells % 0.1 %
[2025-04-15 20:20] LABS: Alkaline Phosphatase 111 U/L (46-116); Anion Gap 5 (5-15); BUN/Creatinine Ratio 41.3 (10.0-20.0); Blood Urea Nitrogen 19 mg/dL (9-23); Chloride 99 mmol/L (98-107); Magnesium 2.0 mg/dL (1.6-2.6); Potassium 4.9 mmol/L (3.5-5.1); Sodium 139 mmol/L (136-145)
[2025-04-15 20:21] LABS: Bilirubin, Total 0.8 mg/dL (0.2-1.0)
[2025-04-15 20:23] LABS: Alanine Aminotransferase 64 U/L (7-40); Carbon Dioxide 35 mmol/L (20-31); Glucose 159 mg/dL (74-106)
[2025-04-15 20:24] LABS: Albumin 3.1 g/dL (3.2-4.8); Calcium 8.4 mg/dL (8.7-10.4); Total Protein 5.4 g/dL (5.7-8.2)
[2025-04-15 20:30] LABS: Base Excess 2.6 mmol/L (-2.0-3.0)
--- NOTE | 2025-04-15 21:02 | DVHNC2 ---
Intubation Indication: Altered Mental Status, Airway Protection Prep: Preoxygenation Pretreated with: Analgesia, Sedation Medicated with: Other (Rocuronium, Etomidate) Intubation Approach: Orotracheal Intubation size: cm (7) Informed consent obtained: No (Emergent procedure) Notes Intubation was performed with the help of GlideScope, procedure supervised by Dr Isauro Almanza MD. Date of Service: Apr 15, 2025 Billing Provider: ISAURO ALMANZA MD Common Visit Codes: PROCEDURE ONLY Procedure Codes: 22025-[id number] LEN RINCON RESIDENT Apr 15, 2025 21:02
--- NOTE | 2025-04-15 21:03 | DVH ---
CHEST RADIOGRAPH Indication: intubated Technique: Single frontal view of the chest was obtained COMPARISON: XY CHEST XRAY 1 VIEW on DOS: 04/15/25, XY CHEST PORTABLE on DOS: 04/15/25, XY CHEST XRAY 1 VIEW on DOS: 04/15/25, XY CHEST XRAY 1 VIEW on DOS: 04/14/25, XY CHEST XRAY 1 VIEW on DOS: 04/13/25 FINDINGS: Lines and Tubes: Endotracheal tube and left PICC in satisfactory position. Lungs: Lungs are hyperinflated suggestive of COPD. Increased interstitial prominence. This may represent pulmonary vascular congestion and/or viral pneumonia. Improved aeration of the right lower lobe. Pleura: Small right pleural effusion.No pneumothorax. Cardiomediastinal contours: Unremarkable Bones: Unremarkable IMPRESSION: Improved aeration of the right lower lobe.
[2025-04-15] MEDS: MELATONIN 5 MG TAB PO ONE (22:00)
[2025-04-15] MEDS: CEFEPIME 2GM/50ML NS 50 ML IV SCH (22:00)
[2025-04-15 22:10] LABS: Base Excess 4.8 mmol/L (-2.0-3.0)
[2025-04-15] MEDS: PHENYLEPHRINE IV 250 ML IV SCH (22:45)
[2025-04-15] MEDS: VASOPRESSIN 20 UNIT/ML ONE (22:51)
--- NOTE | 2025-04-15 23:02 | DVH ---
CLINICAL HISTORY: r/o dvt TECHNIQUE: Color and duplex doppler imaging of the bilateral lower extremity veins was performed. Vessel compression if possible was also performed. WID: COMPARISON: None FINDINGS: Right Lower Extremity: Right common femoral vein: Normal compressibility and flow. Right femoral vein: Normal compressibility and flow. Right popliteal vein: Normal compressibility and flow. Left Lower Extremity: Left common femoral vein: Normal compressibility and flow. Left femoral vein: Normal compressibility and flow. Left popliteal vein: Normal compressibility and flow. IMPRESSION: 1. NO SONOGRAPHIC EVIDENCE FOR DEEP VENOUS THROMBOSIS IN THE BILATERAL LOWER EXTREMITY VEINS.
--- NOTE | 2025-04-15 23:23 | DVH ---
CHEST RADIOGRAPH Indication: decreased OXYGEN Technique: Single frontal view of the chest was obtained COMPARISON: XY CHEST XRAY 1 VIEW on DOS: 04/15/25, XY CHEST XRAY 1 VIEW on DOS: 04/15/25, XY CHEST PORTABLE on DOS: 04/15/25, XY CHEST XRAY 1 VIEW on DOS: 04/15/25, XY CHEST XRAY 1 VIEW on DOS: 04/14/25 FINDINGS: ET tube tip terminating 4.5 cm above the vani. Lungs appear hyperinflated. Stable mixed interstitial and ground-glass opacity throughout the right lung as well as within the left mid and lower lung. No new airspace disease, large pleural effusion, or other adverse interval change. IMPRESSION: ET tube has been advanced slightly. Otherwise stable findings.
[2025-04-15] MEDS: MAGNESIUM SULFATE 1GM/100ML 100 ML IV SCH (23:40)
[2025-04-15] MEDS: HYDROCORTISONE SOD SUCC 100 MG/2ML INJ VIAL IV ONE (23:41)
[2025-04-16] VITALS (109 sets, daily range): BP systolic 75–159; BP diastolic 22–79; PULSE 75–121; RESP 20–23; TEMP 96.8–99.5; O2SAT 91–100
[2025-04-16] MEDS: ETOMIDATE (2MG/ML) 20ML VIAL IV ONE (00:09)
[2025-04-16] MEDS: MIDAZOLAM DRIP 100 mg/100mL NS 100 ML IV SCH (00:38)
[2025-04-16] MEDS: NOREPINEPHRINE 8 MG/250ML KIT 250 ML IV SCH (00:43)
[2025-04-16] MEDS: fentaNYL Drip 2500mCg/250mlNS 250 ML IV SCH (00:48)
[2025-04-16] MEDS: VASOPRESSIN 20 UNITS in SODIUM CHL 0.9% 99 ML IV SCH (01:45)
[2025-04-16] MEDS: IPRATROPIUM BROM 0.5 MG/2.5ML INH SOL NEB SCH ×2 (02:07→18:14)
[2025-04-16] MEDS: LEVALBUTEROL HCL 1.25 MG/3 ML NEB NEB SCH ×2 (02:08→18:14)
[2025-04-16 03:44] LABS: Hemoglobin 9.9 g/dL (12.2-16.2); Nucleated Red Blood Cells % 0.0 %
[2025-04-16 03:45] LABS: Hematocrit 29.9 % (36.0-46.0); Mean Corpuscular Hemoglobin 32.0 pg (28.0-32.0); Mean Corpuscular Volume 96.6 fL (80.0-100.0)
[2025-04-16 04:03] LABS: Alkaline Phosphatase 88 U/L (46-116); Anion Gap 8 (5-15); BUN/Creatinine Ratio 42.6 (10.0-20.0); Carbon Dioxide 30 mmol/L (20-31); Potassium 4.8 mmol/L (3.5-5.1)
[2025-04-16 04:21] LABS: Alanine Aminotransferase 70 U/L (7-40); Albumin 2.5 g/dL (3.2-4.8); Bilirubin, Total 1.2 mg/dL (0.2-1.0); Blood Urea Nitrogen 23 mg/dL (9-23); Calcium 8.0 mg/dL (8.7-10.4); Chloride 97 mmol/L (98-107); Glucose 205 mg/dL (74-106); Sodium 135 mmol/L (136-145); Total Protein 4.5 g/dL (5.7-8.2)
[2025-04-16] MEDS: SODIUM CHLORIDE 0.9% 250 ML IV ONE (05:00)
[2025-04-16] MEDS: HYDROCORTISONE SOD SUCC 100 MG/2ML INJ VIAL IV SCH (05:45)
--- NOTE | 2025-04-16 06:00 | DVH ---
CHEST RADIOGRAPH Indication: RIGHT PNEUMONIA Technique: Single frontal view of the chest was obtained COMPARISON: XY CHEST XRAY 1 VIEW on DOS: 04/15/25, XY CHEST XRAY 1 VIEW on DOS: 04/15/25, XY CHEST XRAY 1 VIEW on DOS: 04/15/25, XY CHEST PORTABLE on DOS: 04/15/25, XY CHEST XRAY 1 VIEW on DOS: 04/15/25 FINDINGS: Lines and Tubes: Unchanged. Lungs: Mild interval progression in Small bilateral pleural effusions and Bibasilar pulmonary airspace disease. No pneumothorax. Cardiomediastinal contours: Unremarkable Bones: Unremarkable IMPRESSION: 1. Mild interval progression in small bilateral pleural effusions and bibasilar pulmonary airspace disease. 2. Lines and tubes unchanged.
[2025-04-16] MEDS: VASOPRESSIN 20 UNIT/ML ONE (06:20)
[2025-04-16 07:08] LABS: Base Excess -1.9 mmol/L (-2.0-3.0)
--- NOTE | 2025-04-16 09:44 | DVHPN2 ---
Progress Note - Dictate Date Seen: Apr 16, 2025 Medical Necessity Reason Pt with a Central, PICC or Fol: Yes The following are medically ne: Central Line, Chin Catheter Subjective Ms. Cedeno is a 59 years old female with a history of hypotension, dyslipidemia, congestive heart failure, COPD, GERD, anxiety, she was brought to the [facility] on 03/30/2025 with a chief complaint of shortness breath. She choked when she was eating dinner and reintubated on 04/15/2025 I have seen and examined the patient in the ICU, she is intubated, nonresponsive to strong painful stimuli, to pupils are very small and asymmetric, but looks right-sided bigger today Pupil size: In the morning on 04/05/2025: Equal. Early afternoon: UPON REASSESSMENT, PUPILS WERE UNEQUAL. LEFT PUPIL IS AT 5 AND RIGHT PUPIL AT 3 AND SLUGGISH REACTION TO LIGHT. MD MCPHERSON NOTIFIED AND NEW ORDERS RECEIVED FOR STAT HEAD CT AND NEUROLOGIST CONSULT. 04/06/2025: Rt: 3, Lt: 3-4. 04/07/25: Rt: 2mm, Lt: 3mm 04/08/2025: Rt: 2mm, Lt: 3mm 04/08/2025: Rt: 2mm, Lt: 2mm 04/11/2025: Rt: 2mm, Lt: 4mm 04/12/2025: Rt: 2mm, Lt: 4mm 04/13/2025: Rt: 2mm, Lt: 4mm 04/14/2025: Rt: 2mm, Lt: 4mm 04/16/2025: Pupil size about 2-3 mm, right-sided slightly bigger Blood culture, 04/02/2025: Negative UDS, 04/02/2025: Negative Plasma alcohol, 04/02/2025: <3 Urinalysis, 04/02/2025: WBC: 1, urine leukocyte esterase: Negative ABG, 04/05/2025: Carbon dioxide retention WBC/HB/PLT/MCV, 04/02/2025: 22.5/9.7/236/95.6, 04/03/2025: 71.9/10.8/245/96.3, 04/04/2025: 26.6/9.8/251/95.5, 04/06/2025: 14.5/8.8/278/93.6, 04/08/2025: 15.5/8.9/234/93.6 CMP, 04/04/2025: Unremarkable Chest x-ray, 04/02/2025: Patchy yvbyl-naegkix-maic-left bibasilar opacities, favoring infection Chest x-ray 04/05/2025: 1. Endotracheal tube 5.8 cm above the vani 2. Right internal jugular catheter in place at the cavoatrial junction. 3. Enteric tube below the left diaphragm less likely in the stomach. 4. IMPROVING airspace disease right lower lobe. Chest x-ray, 04/08/2025: 1. No acute cardiopulmonary disease. 2. Lines and tubes unchanged. Chest x-ray, 04/15/2025: Increased right lower lobe airspace disease CT head, 04/05/2025:1. No evidence of acute intracranial abnormality. 2. Mild subcortical and periventricular low attenuation, nonspecific but most commonly associated with sequelae of chronic microvascular ischemic changes although other etiologies are not excluded. vital signs Vital Sign Date Time Temp Pulse Resp B/P (MAP) Pulse Ox O2 Delivery O2 Flow Rate FiO2 04/16/25 09:04 108 22 107/47 (67) 100 80 04/16/25 04:00 98.4 98.4 04/15/25 20:00 Mechanical Ventilator+ 04/15/25 18:31 6 Total Intake and Output 04/15/25 04/15/25 04/16/25 14:59 22:59 06:59 Intake Total 0 ml 108 ml 0 ml Output Total 350 ml 125 ml Balance 0 ml -242 ml -125 ml medications Current Medications Medications Dose Ordered Sig/Guy Route Start Time Stop Time Status Last Admin Dose Admin Famotidine 20 mg Q12HR IV 04/03/25 10:00 04/15/25 22:32 20 MG Acetaminophen 650 mg Q6HP PRN PO 04/02/25 23:15 04/14/25 10:34 650 MG Nitroglycerin 0.4 mg Q5MINP PRN SL 04/03/25 00:00 Norepinephrine Bitartrate 250 ml @ 3.75 mls/hr Q24H IV 04/03/25 10:00 UNV Acetaminophen 650 mg Q6HP PRN [place] 04/03/25 20:15 Fat Emulsion Intravenous 50 ml/ Sodium Chloride 40 meq/Potassium Chloride 20 meq/ Potassium Phosphate 44 meq/ Calcium Gluconate 2.3 meq/Magnesium Sulfate 8 meq/ Multivitamins 10 ml/Chromium/ Copper/Manganese/ Zinc 1 ml/Amino Acids/Dextrose/ Purified Water 1,047.9462 ml @ 44 mls/hr [id number] IV 04/06/25 22:00 04/06/25 22:00 Cancel Amino Acid Protein 30 ml DAILY PO 04/07/25 10:00 04/12/25 07:57 30 ML Polyethylene Glycol 17 gm DAILY PO 04/09/25 10:00 04/11/25 08:37 17 GM Sodium Chloride 10 ml QSHIFT@10,22 IV 04/09/25 22:00 04/15/25 22:32 10 ML Albuterol 2.5 mg Q2HPRN PRN NEB 04/14/25 14:45 04/15/25 18:29 2.5 MG Fluconazole 100 ml @ 100 mls/hr DAILY IV 04/16/25 10:00 Cefepime HCl 50 ml @ 12.5 mls/hr Q12HR IV 04/15/25 22:00 04/15/25 22:00 12.5 MLS/HR Midazolam HCl 100 ml @ 1 mls/hr Q24H IV 04/15/25 19:00 04/16/25 00:38 2 MLS/HR Fentanyl Citrate 250 ml @ 2.5 mls/hr Q24H IV 04/15/25 19:00 04/16/25 00:48 2.5 MLS/HR Norepinephrine Bitartrate 250 ml @ 3.75 mls/hr Q24H IV 04/15/25 19:00 04/16/25 06:44 30 MLS/HR Phenylephrine HCl 250 ml @ 30 mls/hr Q8H20M IV 04/15/25 22:45 04/16/25 05:36 60 MLS/HR Vasopressin 20 units/Sodium Chloride 100 ml @ 9 mls/hr Q11H7M IV 04/15/25 22:45 04/16/25 06:32 9 MLS/HR Hydrocortisone Sodium Succinate 50 mg Q6HR IV 04/16/25 06:00 04/16/25 05:45 50 MG Levalbuterol HCl 1.25 mg Q4HR NEB 04/15/25 23:15 04/16/25 09:04 1.25 MG Ipratropium [place] 0.5 mg Q4HR NEB 04/15/25 23:15 04/16/25 09:04 0.5 MG Enoxaparin Sodium 40 mg DAILY SC 04/16/25 10:00 objective The patient is well-nourished and well-developed with no distress. The patient is intubated MENTAL STATUS: Subjective CRANIAL NERVES: Pupils are equal, round and reactive.There are no corneal reflexes, he has weak doll's eyes phenomenon. No signs of facial weakness. There are no gagging or coughing reflexes SENSATION: No responses to pain stimuli. MOTOR: Normal tone in the upper and lower extremity. Normal muscle bulk. No fasciculations. No spontaneous movement. REFLEXES: Deep tendon reflexes are symmetrical. No pathological reflexes. CEREBELLAR/COORDINATION: Deferred GAIT/STATION: deferred. laboratory and microbiology Laboratory Tests 04/16/25 03:00 Test 04/16/25 03:00 Range/Units Serum Glucose 205 H 74-106 mg/dL Problem List Altered mental status, Hypoxic encephalopathy Metabolic encephalopathy Toxic encephalopathy Acute on chronic respiratory failure, reintubated on 04/15/2025 Pneumoniae, Leukocytosis/sepsis Anisocoria Etiology unclear Cachexia Assessment/Plan Monitoring Supportive treatment ICU Stabilize vitals/pressor drip Respiratory support/vent management Oxygen IV antibiotics DVT prophylaxis GI prophylaxis More recommendation per clinical course Critical, prognosis This medical document was created using an electronic medical record system with [employer] dictation system. Although this document has been carefully reviewed, there may still be some phonetic and typographical errors. These areas are purely typographical due to imperfections of the software programs, and do not reflect any compromise in the patient's medical care. Prognosis Guarded Dietary Evaluation Review Comments: 1) If patient remains NPO > 7 days, consider EN/TPN to meet at least 75% estimated daily needs 2) If gut is preferred, initiate Vital High Protein @ 40 mL/hr goal rate as tolerated. Flush with 50 mL free H2O Q6H. EN regimen will provide 960 kcals, 84g Pro, and 1003 mL free H2O (including TF flushes) per 24 hrs. Goal rate will meet ~ 95% estimated energy needs and ~ 93% estimated protein needs 3) Advance to cardiac diet when medically feasible, pending ST approval 4) Refer to outpatient RD for weight management 5) Follow-up with cardiology and pulmonology 6) Continue to monitor I&O, labs, and skin integrity Expected Outcomes/Goals: 1) patient to receive nutritional support within 7 days of NPO status 2) labs to improve 3) diet to advance 4) gradual wt gain 5) f/u in 2-3 days Plan discussed with: Other Critical Care Time(min): 35 RAMAN LAWTON MD Apr 16, 2025 09:44
[2025-04-16] MEDS: ENOXAPARIN SOD 40 MG/0.4 ML SYRINGE SC SCH (09:45)
[2025-04-16] MEDS: FLUCONAZOLE 200MG/100ML 100 ML IV SCH (09:46)
[2025-04-16] MEDS ORDERED: VANCOMYCIN PER PHARMACY 0 MG IV SCH (12:15)
[2025-04-16 13:04] LABS: Base Excess 0.2 mmol/L (-2.0-3.0)
[2025-04-16] MEDS: methylPREDNISolone SOD SUCC 40 MG/ML VL IV SCH (14:00)
[2025-04-16] MEDS: SODIUM CHLORIDE 0.9% 1,000 ML IV SCH (14:01)
--- NOTE | 2025-04-16 17:25 | DVHPNRES ---
Progress Note Date Seen: Apr 16, 2025 Resident Creating Document: CRICKET GUAMAN RESIDENT Medical Necessity Reason Pt with a Central, PICC or Fol: Yes The following are medically ne: Central Line, Chin Catheter Subjective Review of Systems Patient is a 59 year old female with past medical history of CHF, Chronic obstructive pulmonary disease, GERD, hyperlipidemia who presented to hospital with chief complaints of shortness of breath. As per daughter patient had increased work of breathing, uses home oxygen 2 L, which was increased to 6 L at home for which saturation improved to 94%. Patient in the ER became altered and was intubated on 04/03/25. as per daughter echocardiogram showed 50% in [facility]. x-ray showed Stable chronic appearing bilateral interstitial pulmonary markings and mild bibasilar pulmonary airspace disease. Past surgical history: Tonsillectomy family history: reviewed, noncontributory Social history: per daughter patient has smoked since she was 15 years old and nicotine vape, used methamphetamine 04/11/25: Patient seen in ICU. on cpap trial, on pressure support control, pulling 400 ml volume Psupport 10 and Peep 5 mm hg. plan for cpap trial tomorrow. 04/12/25: Patient seen in ICU. CPAP trial failed. NIf -13. we will try again tomorrow. 04/13/25: Patient seen in the ICU. patient was successfully extubated today. We will keep monitoring oxygen saturation, or possible need for BiPAP. Patient's daughter at bedside was explained about patient's condition and prognosis. 04/14/2025: Patient seen at the ICU. Patient was successfully extubated yesterday. Patient is on 2 L oxygen. physical therapy tomorrow. Patient's passed swallow eval and diet was switched to soft mechanical diet. 04/15/25: Patient seen at the ICU. Patient is on 3 L oxygen. Patients diet changed to purred diet. discussion done with Daughter about patients condition and recommended discharge to snf. Consulted SS for SNF placement. Added IV fluconazole, and cefepime. Patient had a bowel movement . 04/16/2025: patient seen in ICU. patient was intubated yesterday due to possible aspiration, atelectasis. patient is on levo 14, winston 18, Versed 4, fentanyl 100, ventilator settings at FiO2 80%, peep of 5, VT 400, respiratory rate 22. Added vancomycin , methylprednisone. Ordered 2D echo, Patient's condition was discussed with daughter and possible regarding of tracheostomy. Objective vital signs Vital Sign Date Time Temp Pulse Resp B/P (MAP) Pulse Ox O2 Delivery O2 Flow Rate FiO2 04/16/25 15:17 98 22 131/59 (83) 100 50 04/16/25 12:46 98.8 209.8 04/15/25 20:00 Mechanical Ventilator+ 04/15/25 18:31 6 Total Intake and Output 04/15/25 04/15/25 04/16/25 15:00 23:00 07:00 Intake Total 0 ml 108 ml 0 ml Output Total 350 ml 125 ml Balance 0 ml -242 ml -125 ml medications Current Medications Medications Dose Ordered Sig/Guy Route Start Time Stop Time Status Last Admin Dose Admin Famotidine 20 mg Q12HR IV 04/03/25 10:00 04/16/25 09:45 20 MG Acetaminophen 650 mg Q6HP PRN PO 04/02/25 23:15 04/14/25 10:34 650 MG Nitroglycerin 0.4 mg Q5MINP PRN SL 04/03/25 00:00 Norepinephrine Bitartrate 250 ml @ 3.75 mls/hr Q24H IV 04/03/25 10:00 UNV Acetaminophen 650 mg Q6HP PRN SC 04/03/25 20:15 Fat Emulsion Intravenous 50 ml/ Sodium Chloride 40 meq/Potassium Chloride 20 meq/ Potassium Phosphate 44 meq/ Calcium Gluconate 2.3 meq/Magnesium Sulfate 8 meq/ Multivitamins 10 ml/Chromium/ Copper/Manganese/ Zinc 1 ml/Amino Acids/Dextrose/ Purified Water 1,047.9462 ml @ 44 mls/hr [id number] IV 04/06/25 22:00 04/06/25 22:00 Cancel Sodium Chloride 10 ml QSHIFT@10,22 IV 04/09/25 22:00 04/16/25 09:46 10 ML Albuterol 2.5 mg Q2HPRN PRN NEB 04/14/25 14:45 04/15/25 18:29 2.5 MG Fluconazole 100 ml @ 100 mls/hr DAILY IV 04/16/25 10:00 04/16/25 09:46 100 MLS/HR Cefepime HCl 50 ml @ 12.5 mls/hr Q12HR IV 04/15/25 22:00 04/16/25 11:37 12.5 MLS/HR Midazolam HCl 100 ml @ 1 mls/hr Q24H IV 04/15/25 19:00 04/16/25 00:38 2 MLS/HR Fentanyl Citrate 250 ml @ 2.5 mls/hr Q24H IV 04/15/25 19:00 04/16/25 00:48 2.5 MLS/HR Norepinephrine Bitartrate 250 ml @ 3.75 mls/hr Q24H IV 04/15/25 19:00 04/16/25 06:44 30 MLS/HR Phenylephrine HCl 250 ml @ 30 mls/hr Q8H20M IV 04/15/25 22:45 04/16/25 13:34 60 MLS/HR Vasopressin 20 units/Sodium Chloride 100 ml @ 9 mls/hr Q11H7M IV 04/15/25 22:45 04/16/25 06:32 9 MLS/HR Enoxaparin Sodium 40 mg DAILY SC 04/16/25 10:00 04/16/25 09:45 40 MG Methylprednisolone Sodium Succinate 40 mg Q8HR IV 04/16/25 14:00 Vancomycin HCl 0 ml @ 0 mls/hr PER PHARMACY IV 04/16/25 12:15 Ipratropium [place] 0.5 mg Q6HR NEB 04/16/25 18:00 Levalbuterol HCl 1.25 mg Q6HR NEB 04/16/25 18:00 Sodium Chloride 1,000 ml @ 50 mls/hr Q20H IV 04/16/25 12:30 Examination Patient lying in bed General: Intubated, sedated, not opening eyes and not following commands HEENT: Normocephalic, atraumatic, moist mucous membranes Respiratory/pulmonary: diminished breath sounds bilaterally. Cardiovascular: Normal heart sounds S1 and S2 with no associated murmurs Abdomen: Abdomen nondistended, there is no pain to palpation in any of the abdominal quadrants, no palpable masses. Extremities: There is no peripheral edema present at the lower extremities. Peripheral Pulses: 3+ Radial (R). 3+ Radial (L). 3+ Dorsalis pedis (R). 3+ Dorsalis pedis(L) Skin: Multiple skin tears, no sacral wound present, Neurological: Pupils reactive, gag and cough reflex present laboratory and microbiology Laboratory Tests 04/16/25 03:00 Test 04/16/25 03:00 Range/Units Serum Glucose 205 H 74-106 mg/dL Microbiology Date/Time Source Procedure Growth Status 04/15/25 20:17 Sputum Gram Stain - Final Resulted 04/15/25 20:17 Sputum Respiratory Culture - Preliminary Resulted 04/12/25 22:58 Stool Stool Culture - Final Complete 04/12/25 22:58 Stool Shiga Toxin I & II - Final Complete 04/05/25 08:00 Nose MRSA Screen - Final Complete 04/02/25 20:04 Blood Blood Culture - Final NO GROWTH AFTER 5 DAYS OF INCUBATION. Complete Problem List/Assessment/Plan Problem List/Assessment/Plan Neurology Acute metabolic/hypoxic encephalopathy likely due to COPD exacerbation - Mechanically ventilated, sedated: RASS score -3 - ventilator setting: on AC mode; RR 20,VT 350, Fio2-35%, PEEP-5 - neurology on board - Ordered MRI of head and Neck, MRA angio of neck Cardiology Chronic diastolic Congestive heart failure - ordered 2D echo, - as per daughter EF of 50% Respiratory Sepsis likely due to below Acute on chronic hypoxic respiratory failure secondary to acute COPD exacerbation/ pneumonia Acute G +/- Bacterial PNA possible atelectasis - continue bronchodilators, - continue Solu-Medrol 40 mg - chest xray: Slight interval advancement of the endotracheal tube such that the tip now projects approximately 3.9 cm above the level of the vani. Remaining lines and tubes unchanged. Stable chronic appearing bilateral interstitial pulmonary markings and mild bibasilar pulmonary airspace disease - IV metronidazole, azithromycin changed to doxycycline, cefepime, micafungin - Fluconazole, cefepime,(04/15), vancomycin(04/16) - respiratory culture -showed for filamentous fungi - Chest CT showed lower lobe consolidation, multiple small foci, severe centrilobar Emphysema. GI/Liver Cachexia BMI 15.3 Severe protein malnutrition Slow transit constipation - Miralax Hematology Anemia of chronic disease Iron deficiency anemia - monitor hemoglobin Renal Electrolytes hyponatremia hypocalcemia hypophosphatemia - replete electrolytes - Monitor electrolytes Lines/tubes/devices Airway: Intubated via ETT on 04/03/25 , extubated on 04/13/25, Re intubated (04/15) Vascular access: Central line Rt IJ 04/05 and Rt femoral 10/24 Drips: Fentanyl, midazolam Diet: Soft mechanical diet DVT prophylaxis: Lovenox GI prophylaxis: famotidine Great discussion taken place with Daughter for 37 mins about patients condition and poor prognosis, and possible Tracheostomy. Goals of car discussed with family for more than 29 minutes : Full code Care plan updated to the Daughter, critical time spent more than 84 minutes excluding procedures Case discussed with Dr. Rothman RN Plan discussed with: Daughter My Orders My Orders Orders - CRICKET GUAMAN Procedure Category Date Status Time Enoxaparin Sodium PHA 04/16/25 In Process (Lovenox) 10:00 Dietary Evaluation Review Comments: 1) If patient remains NPO > 7 days, consider EN/TPN to meet at least 75% estimated daily needs 2) If gut is preferred, initiate Vital High Protein @ 40 mL/hr goal rate as tolerated. Flush with 50 mL free H2O Q6H. EN regimen will provide 960 kcals, 84g Pro, and 1003 mL free H2O (including TF flushes) per 24 hrs. Goal rate will meet ~ 95% estimated energy needs and ~ 93% estimated protein needs 3) Advance to cardiac diet when medically feasible, pending ST approval 4) Refer to outpatient RD for weight management 5) Follow-up with cardiology and pulmonology 6) Continue to monitor I&O, labs, and skin integrity Expected Outcomes/Goals: 1) patient to receive nutritional support within 7 days of NPO status 2) labs to improve 3) diet to advance 4) gradual wt gain 5) f/u in 2-3 days Date of Service: Apr 16, 2025 Billing Provider: REBECCA BRIGGS MD Common Visit Codes: 22847-HZYCOMWV CARE 30-74 MIN, 89833-[id number] CARE-EACH +30MIN CRICKET GUAMAN Apr 16, 2025 17:25 REBECCA BRIGGS MD Apr 19, 2025 16:32
[2025-04-16] MEDS: VANCOMYCIN 750MG KIT 100 ML IV ONE (18:16)
[2025-04-17] VITALS (113 sets, daily range): BP systolic 67–152; BP diastolic 15–89; PULSE 63–97; RESP 16–23; TEMP 96.4–98.6; O2SAT 86–100
[2025-04-17 03:46] LABS: Nucleated Red Blood Cells % 0.0 %
[2025-04-17 03:50] LABS: Hematocrit 23.0 % (36.0-46.0); Hemoglobin 7.7 g/dL (12.2-16.2); Mean Corpuscular Hemoglobin 31.1 pg (28.0-32.0); Mean Corpuscular Volume 93.3 fL (80.0-100.0)
[2025-04-17 04:09] LABS: Alkaline Phosphatase 71 U/L (46-116); Anion Gap 7 (5-15); BUN/Creatinine Ratio 70.0 (10.0-20.0); Carbon Dioxide 28 mmol/L (20-31); Chloride 102 mmol/L (98-107); Magnesium 1.8 mg/dL (1.6-2.6); Potassium 3.8 mmol/L (3.5-5.1); Sodium 137 mmol/L (136-145)
[2025-04-17 04:10] LABS: Bilirubin, Total 0.9 mg/dL (0.2-1.0)
[2025-04-17 04:13] LABS: Alanine Aminotransferase 157 U/L (7-40); Blood Urea Nitrogen 28 mg/dL (9-23); Calcium 7.4 mg/dL (8.7-10.4); Glucose 132 mg/dL (74-106)
[2025-04-17 04:14] LABS: Albumin 2.2 g/dL (3.2-4.8); Total Protein 3.9 g/dL (5.7-8.2)
--- NOTE | 2025-04-17 06:32 | DVH ---
CHEST RADIOGRAPH Indication: on vent Technique: Single frontal view of the chest was obtained Comparison: XY CHEST PORTABLE on DOS: 04/16/25 FINDINGS: Lines and Tubes: The endotracheal tube terminates 4.3 cm above the vani. There is a left PICC with its tip terminating in the superior vena cava. The endotracheal tube terminates 3.9 cm above the vani. Lungs: Bilateral lower lung zone opacities are similar to prior study. Pleura: Similar bilateral pleural effusions. No pneumothorax. Cardiomediastinal contours: Unremarkable Bones: No acute osseous abnormality. IMPRESSION: 1. Support tubes in appropriate position. 2. Similar bilateral lower lung zone opacities which may reflect pneumonia, and similar bilateral pleural effusions.
[2025-04-17 07:09] LABS: Base Excess 1.6 mmol/L (-2.0-3.0)
[2025-04-17] MEDS: VANCOMYCIN 500mg/100mL 100 ML IV SCH (10:02)
[2025-04-17] MEDS: CEFEPIME 2GM/50ML NS 50 ML IV SCH (11:34)
[2025-04-17] MEDS: POTASSIUM PHOSPHATE 26.4 MEQ in SODIUM CHL 0.9% 100 ML IV ONE (12:43)
--- NOTE | 2025-04-17 14:55 | DVHPNRES ---
Progress Note Date Seen: Apr 17, 2025 Resident Creating Document: CRICKET GUAMAN RESIDENT Medical Necessity Reason Pt with a Central, PICC or Fol: Yes The following are medically ne: Central Line, Chin Catheter Subjective Review of Systems Patient is a 59 year old female with past medical history of CHF, Chronic obstructive pulmonary disease, GERD, hyperlipidemia who presented to hospital with chief complaints of shortness of breath. As per daughter patient had increased work of breathing, uses home oxygen 2 L, which was increased to 6 L at home for which saturation improved to 94%. Patient in the ER became altered and was intubated on 04/03/25. as per daughter echocardiogram showed 50% in [facility]. x-ray showed Stable chronic appearing bilateral interstitial pulmonary markings and mild bibasilar pulmonary airspace disease. Past surgical history: Tonsillectomy family history: reviewed, noncontributory Social history: per daughter patient has smoked since she was 15 years old and nicotine vape, used methamphetamine 04/11/25: Patient seen in ICU. on cpap trial, on pressure support control, pulling 400 ml volume Psupport 10 and Peep 5 mm hg. plan for cpap trial tomorrow. 04/12/25: Patient seen in ICU. CPAP trial failed. NIf -13. we will try again tomorrow. 04/13/25: Patient seen in the ICU. patient was successfully extubated today. We will keep monitoring oxygen saturation, or possible need for BiPAP. Patient's daughter at bedside was explained about patient's condition and prognosis. 04/14/2025: Patient seen at the ICU. Patient was successfully extubated yesterday. Patient is on 2 L oxygen. physical therapy tomorrow. Patient's passed swallow eval and diet was switched to soft mechanical diet. 04/15/25: Patient seen at the ICU. Patient is on 3 L oxygen. Patients diet changed to purred diet. discussion done with Daughter about patients condition and recommended discharge to snf. Consulted SS for SNF placement. Added IV fluconazole, and cefepime. Patient had a bowel movement . 04/16/2025: patient seen in ICU. patient was intubated yesterday due to possible aspiration, atelectasis. patient is on levo 14, winston 18, Versed 4, fentanyl 100, ventilator settings at FiO2 80%, peep of 5, VT 400, respiratory rate 22. Added vancomycin , methylprednisone. Ordered 2D echo, Patient's condition was discussed with daughter and possible regarding of tracheostomy. 04/17/2025 Patient seen in ICU. Patint is intubated, sedated echo still pending, today patient's hemoglobin dropped from 9.97.7 and platelets also dropped, held Lovenox, stool occult blood ordered. Objective vital signs Vital Sign Date Time Temp Pulse Resp B/P (MAP) Pulse Ox O2 Delivery O2 Flow Rate FiO2 04/17/25 14:47 104/40 04/17/25 14:08 74 22 98 35 04/17/25 13:00 97.7 207.9 04/17/25 12:00 Mechanical Ventilator+ 04/15/25 18:31 6 Total Intake and Output 04/16/25 04/16/25 04/17/25 15:00 23:00 07:00 Intake Total 200 ml 1559 ml 400 ml Output Total 200 ml 200 ml Balance 200 ml 1359 ml 200 ml medications Current Medications Medications Dose Ordered Sig/Guy Route Start Time Stop Time Status Last Admin Dose Admin Famotidine 20 mg Q12HR IV 04/03/25 10:00 04/17/25 10:02 20 MG Acetaminophen 650 mg Q6HP PRN PO 04/02/25 23:15 04/14/25 10:34 650 MG Nitroglycerin 0.4 mg Q5MINP PRN SL 04/03/25 00:00 Norepinephrine Bitartrate 250 ml @ 3.75 mls/hr Q24H IV 04/03/25 10:00 UNV Acetaminophen 650 mg Q6HP PRN LA 04/03/25 20:15 Fat Emulsion Intravenous 50 ml/ Sodium Chloride 40 meq/Potassium Chloride 20 meq/ Potassium Phosphate 44 meq/ Calcium Gluconate 2.3 meq/Magnesium Sulfate 8 meq/ Multivitamins 10 ml/Chromium/ Copper/Manganese/ Zinc 1 ml/Amino Acids/Dextrose/ Purified Water 1,047.9462 ml @ 44 mls/hr [id number] IV 04/06/25 22:00 04/06/25 22:00 Cancel Sodium Chloride 10 ml QSHIFT@10,22 IV 04/09/25 22:00 04/17/25 10:02 10 ML Albuterol 2.5 mg Q2HPRN PRN NEB 04/14/25 14:45 04/15/25 18:29 2.5 MG Fluconazole 100 ml @ 100 mls/hr DAILY IV 04/16/25 10:00 04/17/25 10:03 100 MLS/HR Midazolam HCl 100 ml @ 1 mls/hr Q24H IV 04/15/25 19:00 04/16/25 18:17 2 MLS/HR Fentanyl Citrate 250 ml @ 2.5 mls/hr Q24H IV 04/15/25 19:00 04/16/25 21:27 5 MLS/HR Norepinephrine Bitartrate 250 ml @ 3.75 mls/hr Q24H IV 04/15/25 19:00 04/17/25 14:47 3.75 MLS/HR Phenylephrine HCl 250 ml @ 30 mls/hr Q8H20M IV 04/15/25 22:45 04/17/25 03:14 41.25 MLS/HR Vasopressin 20 units/Sodium Chloride 100 ml @ 9 mls/hr Q11H7M IV 04/15/25 22:45 04/17/25 04:29 9 MLS/HR Enoxaparin Sodium 40 mg DAILY SC 04/16/25 10:00 04/16/25 09:45 40 MG Methylprednisolone Sodium Succinate 40 mg Q8HR IV 04/16/25 14:00 04/17/25 14:36 40 MG Vancomycin HCl 0 ml @ 0 mls/hr PER PHARMACY IV 04/16/25 12:15 Ipratropium [place] 0.5 mg Q6HR NEB 04/16/25 18:00 04/17/25 12:07 0.5 MG Levalbuterol HCl 1.25 mg Q6HR NEB 04/16/25 18:00 04/17/25 12:06 1.25 MG Sodium Chloride 1,000 ml @ 50 mls/hr Q20H IV 04/16/25 12:30 04/17/25 04:29 50 MLS/HR Cefepime HCl 50 ml @ 12.5 mls/hr Q12H IV 04/17/25 11:00 04/17/25 11:34 12.5 MLS/HR Vancomycin HCl 100 ml @ 200 mls/hr Q24H IV 04/17/25 10:00 04/17/25 10:02 200 MLS/HR Examination Patient lying in bed General: Intubated, sedated, not opening eyes and not following commands HEENT: Normocephalic, atraumatic, moist mucous membranes Respiratory/pulmonary: diminished breath sounds bilaterally. Cardiovascular: Normal heart sounds S1 and S2 with no associated murmurs Abdomen: Abdomen nondistended, there is no pain to palpation in any of the abdominal quadrants, no palpable masses. Extremities: There is no peripheral edema present at the lower extremities. Peripheral Pulses: 3+ Radial (R). 3+ Radial (L). 3+ Dorsalis pedis (R). 3+ Dorsalis pedis(L) Skin: Multiple skin tears, no sacral wound present, Neurological: Pupils reactive, gag and cough reflex present laboratory and microbiology Laboratory Tests 04/17/25 02:55 Test 04/17/25 02:55 Range/Units Serum Glucose 132 H 74-106 mg/dL Microbiology Date/Time Source Procedure Growth Status 04/15/25 20:17 Sputum Gram Stain - Final Resulted 04/15/25 20:17 Sputum Respiratory Culture - Preliminary Resulted 04/12/25 22:58 Stool Stool Culture - Final Complete 04/12/25 22:58 Stool Shiga Toxin I & II - Final Complete 04/05/25 08:00 Nose MRSA Screen - Final Complete 04/02/25 20:04 Blood Blood Culture - Final NO GROWTH AFTER 5 DAYS OF INCUBATION. Complete Problem List/Assessment/Plan Problem List/Assessment/Plan Neurology Acute metabolic/hypoxic encephalopathy likely due to COPD exacerbation - Mechanically ventilated, sedated: RASS score -3 - ventilator setting: on AC mode; RR 20,VT 350, Fio2-35%, PEEP-5 - neurology on board Cardiology Chronic diastolic Congestive heart failure - ordered 2D echo, - as per daughter EF of 50% Respiratory Sepsis likely due to below Acute on chronic hypoxic respiratory failure secondary to acute COPD exacerbation/ pneumonia Acute G +/- Bacterial PNA possible atelectasis - continue bronchodilators, - continue Solu-Medrol 40 mg - chest xray: Slight interval advancement of the endotracheal tube such that the tip now projects approximately 3.9 cm above the level of the vani. Remaining lines and tubes unchanged. Stable chronic appearing bilateral interstitial pulmonary markings and mild bibasilar pulmonary airspace disease - IV metronidazole, azithromycin changed to doxycycline, cefepime, micafungin - Fluconazole, cefepime,(04/15), vancomycin(04/16) - respiratory culture -showed for filamentous fungi - Chest CT showed lower lobe consolidation, multiple small foci, severe centrilobar Emphysema. GI/Liver Cachexia BMI 15.3 Severe protein malnutrition Slow transit constipation - Miralax Hematology Anemia of chronic disease Iron deficiency anemia - monitor hemoglobin Renal Electrolytes hyponatremia hypocalcemia hypophosphatemia - replete electrolytes - Monitor electrolytes Lines/tubes/devices Airway: Intubated via ETT on 04/03/25 , extubated on 04/13/25, Re intubated (04/15) Vascular access: Central line Rt IJ 04/05 and Rt femoral 04/03 Drips: Fentanyl, midazolam Diet: DVT prophylaxis: Lovenox(held due to low hemoglobin) GI prophylaxis: famotidine Great discussion taken place with Daughter for 37 mins about patients condition and poor prognosis, and possible Tracheostomy. Goals of car discussed with family for more than 29 minutes : Full code Care plan updated to the Daughter, critical time spent more than 84 minutes excluding procedures Case discussed with Dr. Rothman RN Plan discussed with: Daughter My Orders My Orders Orders - CRICKET GUAMAN RESIDENT Procedure Category Date Status Time Chest Xray 1 View XY 04/17/25 Resulted 04:00 Abg W/ Co-Ox RT 04/17/25 Logged 05:25 Complete Blood Count LAB 04/17/25 Logged 15:00 Stool Occult Blood LAB 04/17/25 Logged 10:55 Dietary Evaluation Review Comments: 1) If patient remains NPO > 7 days, consider EN/TPN to meet at least 75% estimated daily needs 2) If gut is preferred, initiate Vital High Protein @ 40 mL/hr goal rate as tolerated. Flush with 50 mL free H2O Q6H. EN regimen will provide 960 kcals, 84g Pro, and 1003 mL free H2O (including TF flushes) per 24 hrs. Goal rate will meet ~ 95% estimated energy needs and ~ 93% estimated protein needs 3) Advance to cardiac diet when medically feasible, pending ST approval 4) Refer to outpatient RD for weight management 5) Follow-up with cardiology and pulmonology 6) Continue to monitor I&O, labs, and skin integrity Expected Outcomes/Goals: 1) patient to receive nutritional support within 7 days of NPO status 2) labs to improve 3) diet to advance 4) gradual wt gain 5) f/u in 2-3 days CRICKET GUAAMN RESIDENT Apr 17, 2025 14:55
[2025-04-17] MEDS: SODIUM PHOSPHATES 20 MEQ in SODIUM CHL 0.9% 100 ML IV ONE (15:30)
[2025-04-17 15:42] LABS: Nucleated Red Blood Cells % 0.0 %
[2025-04-17 15:44] LABS: Hematocrit 20.6 % (36.0-46.0); Mean Corpuscular Hemoglobin 31.6 pg (28.0-32.0); Mean Corpuscular Volume 95.8 fL (80.0-100.0)
[2025-04-17 15:50] LABS: Hemoglobin 6.8 g/dL (12.2-16.2)
[2025-04-17] MEDS: MAGNESIUM SULFATE 1GM/100ML 100 ML IV ONE (16:31)
[2025-04-17] MEDS: NOREPINEPHRINE 8 MG/250ML KIT 250 ML IV SCH (19:45)
--- NOTE | 2025-04-17 20:28 | DVHPN2 ---
Progress Note - Dictate Date Seen: Apr 17, 2025 Medical Necessity Reason Pt with a Central, PICC or Fol: Yes The following are medically ne: Central Line, Chin Catheter Subjective Ms. Cedeno is a 59 years old female with a history of hypotension, dyslipidemia, congestive heart failure, COPD, GERD, anxiety, she was brought to the [facility] on 03/30/2025 with a chief complaint of shortness breath. She choked when she was eating dinner and reintubated on 04/15/2025 I have seen and examined the patient in the ICU, she is intubated, nonresponsive to light painful stimuli, positive to light touch as well Unstable H/H Fentanyl 50 mcg/hour, levo 2 mcg/minute, this is a 0.03 u/minute Pupil size: In the morning on 04/05/2025: Equal. Early afternoon: UPON REASSESSMENT, PUPILS WERE UNEQUAL. LEFT PUPIL IS AT 5 AND RIGHT PUPIL AT 3 AND SLUGGISH REACTION TO LIGHT. MD MCPHERSON NOTIFIED AND NEW ORDERS RECEIVED FOR STAT HEAD CT AND NEUROLOGIST CONSULT. 04/06/2025: Rt: 3, Lt: 3-4. 04/07/25: Rt: 2mm, Lt: 3mm 04/08/2025: Rt: 2mm, Lt: 3mm 04/08/2025: Rt: 2mm, Lt: 2mm 04/11/2025: Rt: 2mm, Lt: 4mm 04/12/2025: Rt: 2mm, Lt: 4mm 04/13/2025: Rt: 2mm, Lt: 4mm 04/14/2025: Rt: 2mm, Lt: 4mm 04/16/2025: Pupil size about 2-3 mm, right-sided slightly bigger 04/17/2025: Almost the same size, possibly left side bigger Blood culture, 04/02/2025: Negative UDS, 04/02/2025: Negative Plasma alcohol, 04/02/2025: <3 Urinalysis, 04/02/2025: WBC: 1, urine leukocyte esterase: Negative ABG, 04/05/2025: Carbon dioxide retention WBC/HB/PLT/MCV, 04/02/2025: 22.5/9.7/236/95.6, 04/03/2025: 71.9/10.8/245/96.3, 04/04/2025: 26.6/9.8/251/95.5, 04/06/2025: 14.5/8.8/278/93.6, 04/08/2025: 15.5/8.9/234/93.6. 04/17/25: 17.4/6.8/3/95.8 CMP, 04/04/2025: Unremarkable Chest x-ray, 04/02/2025: Patchy [id number]-left bibasilar opacities, favoring infection Chest x-ray 04/05/2025: 1. Endotracheal tube 5.8 cm above the vani 2. Right internal jugular catheter in place at the cavoatrial junction. 3. Enteric tube below the left diaphragm less likely in the stomach. 4. IMPROVING airspace disease right lower lobe. Chest x-ray, 04/08/2025: 1. No acute cardiopulmonary disease. 2. Lines and tubes unchanged. Chest x-ray, 04/15/2025: Increased right lower lobe airspace disease CT head, 04/05/2025:1. No evidence of acute intracranial abnormality. 2. Mild subcortical and periventricular low attenuation, nonspecific but most commonly associated with sequelae of chronic microvascular ischemic changes although other etiologies are not excluded. vital signs Vital Sign Date Time Temp Pulse Resp B/P (MAP) Pulse Ox O2 Delivery O2 Flow Rate FiO2 04/17/25 20:09 98.1 94 19 111/41 98.1 04/17/25 19:45 100 04/17/25 18:34 35 04/17/25 18:00 Mechanical Ventilator+ 04/15/25 18:31 6 Total Intake and Output 04/16/25 04/16/25 04/17/25 15:00 23:00 07:00 Intake Total 200 ml 1559 ml 400 ml Output Total 200 ml 200 ml Balance 200 ml 1359 ml 200 ml medications Current Medications Medications Dose Ordered Sig/Guy Route Start Time Stop Time Status Last Admin Dose Admin Famotidine 20 mg Q12HR IV 04/03/25 10:00 04/17/25 10:02 20 MG Nitroglycerin 0.4 mg Q5MINP PRN SL 04/03/25 00:00 Norepinephrine Bitartrate 250 ml @ 3.75 mls/hr Q24H IV 04/03/25 10:00 UNV Fat Emulsion Intravenous 50 ml/ Sodium Chloride 40 meq/Potassium Chloride 20 meq/ Potassium Phosphate 44 meq/ Calcium Gluconate 2.3 meq/Magnesium Sulfate 8 meq/ Multivitamins 10 ml/Chromium/ Copper/Manganese/ Zinc 1 ml/Amino Acids/Dextrose/ Purified Water 1,047.9462 ml @ 44 mls/hr [id number] IV 04/06/25 22:00 04/06/25 22:00 Cancel Sodium Chloride 10 ml QSHIFT@ IV 04/09/25 22:00 04/17/25 10:02 10 ML Fluconazole 100 ml @ 100 mls/hr DAILY IV 04/16/25 10:00 04/17/25 10:03 100 MLS/HR Midazolam HCl 100 ml @ 1 mls/hr Q24H IV 04/15/25 19:00 04/17/25 19:00 2 MLS/HR Fentanyl Citrate 250 ml @ 2.5 mls/hr Q24H IV 04/15/25 19:00 04/17/25 20:07 5 MLS/HR Phenylephrine HCl 250 ml @ 30 mls/hr Q8H20M IV 04/15/25 22:45 04/17/25 03:14 41.25 MLS/HR Vasopressin 20 units/Sodium Chloride 100 ml @ 9 mls/hr Q11H7M IV 04/15/25 22:45 04/17/25 16:34 9 MLS/HR Enoxaparin Sodium 40 mg DAILY SC 04/16/25 10:00 04/16/25 09:45 40 MG Methylprednisolone Sodium Succinate 40 mg Q8HR IV 04/16/25 14:00 04/17/25 14:36 40 MG Vancomycin HCl 0 ml @ 0 mls/hr PER PHARMACY IV 04/16/25 12:15 Ipratropium [place] 0.5 mg Q6HR NEB 04/16/25 18:00 04/17/25 18:34 0.5 MG Levalbuterol HCl 1.25 mg Q6HR NEB 04/16/25 18:00 04/17/25 18:34 1.25 MG Sodium Chloride 1,000 ml @ 50 mls/hr Q20H IV 04/16/25 12:30 04/17/25 04:29 50 MLS/HR Cefepime HCl 50 ml @ 12.5 mls/hr Q12H IV 04/17/25 11:00 04/17/25 11:34 12.5 MLS/HR Vancomycin HCl 100 ml @ 200 mls/hr Q24H IV 04/17/25 10:00 04/17/25 10:02 200 MLS/HR Norepinephrine Bitartrate 250 ml @ 3.75 mls/hr Q24H IV 04/17/25 19:45 UNV objective The patient is well-nourished and well-developed with no distress. The patient is intubated MENTAL STATUS: Subjective CRANIAL NERVES: Pupils are equal, round and reactive.There are no corneal reflexes, he has weak doll's eyes phenomenon. No signs of facial weakness. There are no gagging or coughing reflexes SENSATION: No responses to pain stimuli. MOTOR: Normal tone in the upper and lower extremity. Normal muscle bulk. No fasciculations. No spontaneous movement. REFLEXES: Deep tendon reflexes are symmetrical. No pathological reflexes. CEREBELLAR/COORDINATION: Deferred GAIT/STATION: deferred. laboratory and microbiology Laboratory Tests 04/17/25 14:51 04/17/25 02:55 Test 04/17/25 02:55 Range/Units Serum Glucose 132 H 74-106 mg/dL Problem List Altered mental status, Hypoxic encephalopathy Metabolic encephalopathy Toxic encephalopathy Acute on chronic respiratory failure, reintubated on 04/15/2025 Pneumoniae, Leukocytosis/sepsis Anisocoria Etiology unclear Cachexia Assessment/Plan Monitoring Supportive treatment ICU Stabilize vitals/pressor drip Respiratory support/vent management Oxygen IV antibiotics DVT prophylaxis GI prophylaxis More recommendation per clinical course She likes to have poor prognosis, may need to consider code status This medical document was created using an electronic medical record system with [employer] dictation system. Although this document has been carefully reviewed, there may still be some phonetic and typographical errors. These areas are purely typographical due to imperfections of the software programs, and do not reflect any compromise in the patient's medical care. Prognosis Guarded Dietary Evaluation Review Comments: 1) If patient remains NPO > 7 days, consider EN/TPN to meet at least 75% estimated daily needs 2) If gut is preferred, initiate Vital High Protein @ 40 mL/hr goal rate as tolerated. Flush with 50 mL free H2O Q6H. EN regimen will provide 960 kcals, 84g Pro, and 1003 mL free H2O (including TF flushes) per 24 hrs. Goal rate will meet ~ 95% estimated energy needs and ~ 93% estimated protein needs 3) Advance to cardiac diet when medically feasible, pending ST approval 4) Refer to outpatient RD for weight management 5) Follow-up with cardiology and pulmonology 6) Continue to monitor I&O, labs, and skin integrity Expected Outcomes/Goals: 1) patient to receive nutritional support within 7 days of NPO status 2) labs to improve 3) diet to advance 4) gradual wt gain 5) f/u in 2-3 days Plan discussed with: Other Critical Care Time(min): 30 RAMAN LAWTON MD Apr 17, 2025 20:28
--- NOTE | 2025-04-17 23:25 | DVHPN2 ---
Subjective DOS: 04/17/2025 Patient seen and examined at bedside. Sedated, intubated on mechanical ventilator. Overnight events reviewed. Changes from previous H/P or p: No Changes Eyes: No Pain, No Vision change, No Conjunctivae inflammation, No Eyelid inflammation, No Other, No Redness ENT: No Ear pain, No Ear discharge, No Nose pain, No Nose discharge, No Nose congestion, No Mouth pain, No Mouth swelling, No Throat pain, No Throat swelling, No Other Cardiovascular: No Chest Pain, No Palpitations, No Orthopnea, No Paroxysmal Noc. Dyspnea, No Edema, No Lt Headedness, No Other Respiratory: No Cough, No Dry; Shortness of breath; No SOB with excertion, No Wheezing, No Hemoptysis, No Pleuritic Pain, No Sputum; Other (SOB at rest) Gastrointestinal: No Nausea, No Vomiting, No Abdominal Pain, No Diarrhea, No Constipation, No Melena, No Hematochezia, No Other Genitourinary: No Dysuria, No Frequency, No Incontinence, No Hematuria, No Retention, No Other Musculoskeletal: No other, No neck pain, No shoulder pain, No arm pain, No back pain, No hand pain, No leg pain, No foot pain Skin: No Rash, No Lesions, No Jaundice, No Bruising, No Other Objective Vitals Vital Signs Date Time Temp Pulse Resp B/P (MAP) Pulse Ox O2 Delivery O2 Flow Rate FiO2 04/17/25 23:00 97.9 71 18 146/60 97.9 04/17/25 22:45 95 04/17/25 22:00 35 04/17/25 22:00 Mechanical Ventilator+ 04/15/25 18:31 6 Intake/Output Intake and Output 04/17/25 07:00 Intake Total 2159 ml Output Total 400 ml Balance 1759 ml Intake Oral 0 ml IV Total 1100 ml Other 1059 ml Output Urine Total 400 ml # Bowel Movements 1 Exam Gen.: Patient lying in bed in medical ICU. Sedated, intubated on mechanical ventilator. Head: Normocephalic, atraumatic. Eyes: Pupils anisocoric. Ears: Normal external anatomy. Throat: Endotracheal tube and orogastric tube in place. Neck: Supple, trachea midline. Chest: Transmitted breath sounds bilaterally. Decreased air entry bilaterally. No wheezing. Bibasilar crackles. Cardiovascular: Positive S1, positive S2. Regular rate and rhythm. Abdomen: Positive bowel sounds in all 4 quadrants. Soft, nontender, nondistended. : Chin in place. Normal external genitalia. Rectal: Deferred. Skin: Warm, dry. Multiple skin tears Extremities: 2+ radial pulses bilaterally. No lower extremity edema. Neuro: Sedated. Medications Current Medications Medications Dose Ordered Sig/[facility] Route Start Time Stop Time Status Last Admin Dose Admin Famotidine 20 mg Q12HR IV 04/03/25 10:00 04/17/25 20:42 20 MG Nitroglycerin 0.4 mg Q5MINP PRN SL 04/03/25 00:00 Norepinephrine Bitartrate 250 ml @ 3.75 mls/hr Q24H IV 04/03/25 10:00 UNV Fat Emulsion Intravenous 50 ml/ Sodium Chloride 40 meq/Potassium Chloride 20 meq/ Potassium Phosphate 44 meq/ Calcium Gluconate 2.3 meq/Magnesium Sulfate 8 meq/ Multivitamins 10 ml/Chromium/ Copper/Manganese/ Zinc 1 ml/Amino Acids/Dextrose/ Purified Water 1,047.9462 ml @ 44 mls/hr [id number] IV 04/06/25 22:00 04/06/25 22:00 Cancel Sodium Chloride 10 ml QSHIFT@10,22 IV 04/09/25 22:00 04/17/25 20:42 10 ML Fluconazole 100 ml @ 100 mls/hr DAILY IV 04/16/25 10:00 04/17/25 10:03 100 MLS/HR Midazolam HCl 100 ml @ 1 mls/hr Q24H IV 04/15/25 19:00 04/17/25 19:00 2 MLS/HR Fentanyl Citrate 250 ml @ 2.5 mls/hr Q24H IV 04/15/25 19:00 04/17/25 20:07 5 MLS/HR Phenylephrine HCl 250 ml @ 30 mls/hr Q8H20M IV 04/15/25 22:45 04/17/25 03:14 41.25 MLS/HR Vasopressin 20 units/Sodium Chloride 100 ml @ 9 mls/hr Q11H7M IV 04/15/25 22:45 04/17/25 16:34 9 MLS/HR Enoxaparin Sodium 40 mg DAILY SC 04/16/25 10:00 04/16/25 09:45 40 MG Methylprednisolone Sodium Succinate 40 mg Q8HR IV 04/16/25 14:00 04/17/25 20:42 40 MG Vancomycin HCl 0 ml @ 0 mls/hr PER PHARMACY IV 04/16/25 12:15 Ipratropium [place] 0.5 mg Q6HR NEB 04/16/25 18:00 04/17/25 18:34 0.5 MG Levalbuterol HCl 1.25 mg Q6HR NEB 04/16/25 18:00 04/17/25 18:34 1.25 MG Sodium Chloride 1,000 ml @ 50 mls/hr Q20H IV 04/16/25 12:30 04/17/25 04:29 50 MLS/HR Cefepime HCl 50 ml @ 12.5 mls/hr Q12H IV 04/17/25 11:00 04/17/25 20:42 12.5 MLS/HR Vancomycin HCl 100 ml @ 200 mls/hr Q24H IV 04/17/25 10:00 04/17/25 10:02 200 MLS/HR Norepinephrine Bitartrate 250 ml @ 3.75 mls/hr Q24H IV 04/17/25 19:45 04/17/25 19:45 3.75 MLS/HR Laboratory Results Laboratory Tests 04/17/25 02:55 04/17/25 14:51 Chemistry Test 04/17/25 02:55 Albumin 2.2 g/dL (3.2-4.8) L Calcium Level 7.4 mg/dL (8.7-10.4) L Magnesium Level 1.8 mg/dL (1.6-2.6) Phosphorus Level 1.8 mg/dL (2.4-5.1) L Total Protein 3.9 g/dL (5.7-8.2) L LFT Test 04/17/25 02:55 Alanine Aminotransferase (ALT) 157 U/L (7-40) H Alkaline Phosphatase 71 U/L (46-116) Aspartate Amino Transferase (AST) 101 U/L (13-40) H Total Bilirubin 0.9 mg/dL (0.2-1.0) Urinalysis Test 04/02/25 20:38 Urine Color Yellow (Yellow) Urine Clarity Clear (Clear) Urine pH 5.5 (5.0-9.0) Urine Specific [place] 1.015 (1.001-1.035) Urine Protein Trace (Negative) H Urine Ketones Negative (Negative) Urine Blood Negative /uL (Negative) Urine Nitrite Negative (Negative) Urine Bilirubin Negative (Negative) Urine Urobilinogen Normal mg/dL (Negative) Urine Leukocyte Esterase Negative /uL (Negative) Urine RBC 1 /hpf (0 - 4) Urine Microscopic WBC 1 /HPF (0-5) Urine Squamous Epithelial Cells None seen /hpf (<5) Urine Bacteria None seen /hpf (None Seen) Urine Mucus Few (None Seen) Urine Glucose Normal mg/dL (Normal) Blood Gas Results Test 04/17/25 06:44 Arterial Blood pH 7.456 (7.350-7.450) FiO2 % 40.0 Microbiology Microbiology Date/Time Source Procedure Growth Status 04/15/25 20:17 Sputum Gram Stain - Final Resulted 04/15/25 20:17 Sputum Respiratory Culture - Preliminary Resulted 04/12/25 22:58 Stool Stool Culture - Final Complete 04/12/25 22:58 Stool Shiga Toxin I & II - Final Complete 04/05/25 08:00 Nose MRSA Screen - Final Complete 04/02/25 20:04 Blood Blood Culture - Final NO GROWTH AFTER 5 DAYS OF INCUBATION. Complete Assessment/Plan Assessment/Plan Impression: Acute hypoxic respiratory failure On mechanical ventilator Acute COPD exacerbation Congestive heart failure Atelectasis Leukocytosis Cachexia, BMI 16.5 Events: Patient seen and examined at bedside. Note, patient was re-intubated on 04/15/25. Vent support On AC mode; RR 22, VT 400, PEEP 5, FiO2 35% Taper FIO2 as tolerated Sedated on Versed, Fentanyl. ABG reviewed, shows alkalemia Taper RR to 18 Pressors as necessary for hemodynamic support. Levophed 2 mcg/min and vasopressin 0.03 units/min Titrate to keep MAP greater than 65 mmHg. Continue bronchodilators. Continue antibiotics Continue antifungal Follow up cultures Continue steroids Monitor WBC Monitor hemoglobin - trended down to 6.8 g/dL Plan to transfuse 1 unit PRBC. Monitor blood pressure Monitor renal function. Monitor electrolytes. Supplement as necessary. Magnesium supplementation Goals of care - Discussed with daughter about possible tracheostomy. Labs and imaging reviewed. Rest of plan as noted below. Plan: s/p intubation on mechanical ventilator. On AC mode; RR 22-->18, VT 400, PEEP 5, FiO2 35% Titrate FIO2 to keep O2 saturation above 90%. VAP bundle. Daily ABG and CXR while intubated Continue bronchodilators. Continue antibiotics Monitor WBC Continue steroids Pressors as necessary for hemodynamic support. Titrate to keep MAP greater than 65 mmHg. Follow up Cardiology recs Monitor hemoglobin Transfuse if less than 7.0 g/dL. Monitor renal function. Monitor electrolytes. Supplement as necessary. Monitor ins and outs. GI/DVT prophylaxis. Prognosis: Poor given patient's multiple co-morbidities. Condition: Critical Rest of plan per hospitalist and other consultants. A total of 35 minutes of critical care time was spent reviewing the patient record, examining the patient, making a diagnostic and therapeutic plan, discussing this plan with the medical personnel, following up on diagnostic studies and following the patient for clinical stability excluding any and all procedures. At least 50% of this time was spent in direct, [id number] contact. Thank you, Dr. Hunter, for allowing me to participate in this patient's care. Further recommendations will depend on the patient's clinical course. Please do not hesitate to contact me if you have any questions or concerns. This medical document was created using an electronic medical record system with [employer] dictation system. Although these documentations are being carefully reviewed, there may still be some phonetic and typographical changes. The errors are purely typographical, due to imperfection on the software program, and do not reflect any compromise in the patient's medical care. Plan discussed with: Other (AMBER Barry) My Orders Orders - LIDIA KLEIN MD Procedure Category Date Status Time Communication Order ORDERS 04/17/25 Transmitted 19:29 Norepinephrine 8 PHA 04/17/25 In Process Mg/250ml Kit 19:45 Visit Coding Pulmonary Billing Provider: LIDIA KLEIN MD Date of Service if different f: Apr 17, 2025 Common Visit Codes: 20102-[id number] INP/OBS CARE(HIGH), 57320-SOUWEBCI CARE 30-74 MIN LIDIA KLEIN MD Apr 17, 2025 23:25
[2025-04-18] VITALS (112 sets, daily range): BP systolic 84–143; BP diastolic 45–69; PULSE 67–96; RESP 16–19; TEMP 96.3–98.8; O2SAT 88–100
[2025-04-18 01:14] LABS: Hematocrit 30.5 % (36.0-46.0); Hemoglobin 10.3 g/dL (12.2-16.2)
[2025-04-18 03:33] LABS: Hematocrit 30.6 % (36.0-46.0); Hemoglobin 10.5 g/dL (12.2-16.2); Mean Corpuscular Hemoglobin 31.4 pg (28.0-32.0); Mean Corpuscular Volume 91.3 fL (80.0-100.0); Nucleated Red Blood Cells % 0.0 %
[2025-04-18 03:45] LABS: Alkaline Phosphatase 80 U/L (46-116); Anion Gap 9 (5-15); BUN/Creatinine Ratio 91.9 (10.0-20.0); Carbon Dioxide 25 mmol/L (20-31); Chloride 104 mmol/L (98-107); Magnesium 2.0 mg/dL (1.6-2.6); Potassium 4.1 mmol/L (3.5-5.1); Sodium 138 mmol/L (136-145)
[2025-04-18 03:47] LABS: Bilirubin, Total 0.8 mg/dL (0.2-1.0)
[2025-04-18 03:57] LABS: Alanine Aminotransferase 130 U/L (7-40); Albumin 2.3 g/dL (3.2-4.8); Blood Urea Nitrogen 34 mg/dL (9-23); Calcium 7.7 mg/dL (8.7-10.4); Glucose 124 mg/dL (74-106); Total Protein 3.9 g/dL (5.7-8.2)
--- NOTE | 2025-04-18 06:06 | DVH ---
CHEST RADIOGRAPH Indication: on vent Technique: Single frontal view of the chest was obtained COMPARISON: XY CHEST XRAY 1 VIEW on DOS: 04/17/25, XY CHEST PORTABLE on DOS: 04/16/25, XY CHEST XRAY 1 VIEW on DOS: 04/15/25, XY CHEST XRAY 1 VIEW on DOS: 04/15/25, XY CHEST XRAY 1 VIEW on DOS: 04/15/25 FINDINGS: Lines and Tubes: Unchanged. Lungs: Slight interval progression and bilateral pleural effusions and otherwise stable appearing bibasilar opacities. No pneumothorax. Cardiomediastinal contours: Unremarkable Bones: Unremarkable IMPRESSION: 1. Slight interval progression of bilateral pleural effusions and otherwise stable appearing bibasilar opacities. 2. Lines and tubes unchanged.
[2025-04-18 08:11] LABS: Base Excess -1.6 mmol/L (-2.0-3.0)
--- NOTE | 2025-04-18 12:16 | ECG ---
[facility] Test Date: 2025-04-15 Test Time: 18:57:52 Pat Name: FLACA FLAHERTY Department: Respiratoy Room: 0265 A Gender: F Contract Driver: brenda : 1965 Requested By: PALMER TOLENTINO Order Number: [id number] Reading MD: Jaime Larson Measurements Intervals [place] Rate: 110 P: 96 AR: 97 QRS: 90 QRSD: 97 T: -85 QT: 344 QTc: 466 Interpretive Statements Sinus tachycardia Borderline right axis deviation Borderline low voltage, extremity leads Nonspecific T abnormalities, lateral leads Baseline wander in lead(s) V1 Electronically Signed On 04-20-2025 11:04:06 PST by Jaime Larson Please click the below link to view image of tracing.
--- NOTE | 2025-04-18 12:44 | DVHPNRES ---
Progress Note Date Seen: Apr 18, 2025 Resident Creating Document: SHELL WELCH RESIDENT Medical Necessity Reason Pt with a Central, PICC or Fol: Yes The following are medically ne: Central Line, Chin Catheter Subjective Review of Systems Patient is a 59 year old female with past medical history of CHF, Chronic obstructive pulmonary disease, GERD, hyperlipidemia who presented to hospital with chief complaints of shortness of breath. As per daughter patient had increased work of breathing, uses home oxygen 2 L, which was increased to 6 L at home for which saturation improved to 94%. Patient in the ER became altered and was intubated on 04/03/25. as per daughter echocardiogram showed 50% in [facility]. x-ray showed Stable chronic appearing bilateral interstitial pulmonary markings and mild bibasilar pulmonary airspace disease. Past surgical history: Tonsillectomy family history: reviewed, noncontributory Social history: per daughter patient has smoked since she was 15 years old and nicotine vape, used methamphetamine 04/11/25: Patient seen in ICU. on cpap trial, on pressure support control, pulling 400 ml volume Psupport 10 and Peep 5 mm hg. plan for cpap trial tomorrow. 04/12/25: Patient seen in ICU. CPAP trial failed. NIf -13. we will try again tomorrow. 04/13/25: Patient seen in the ICU. patient was successfully extubated today. We will keep monitoring oxygen saturation, or possible need for BiPAP. Patient's daughter at bedside was explained about patient's condition and prognosis. 04/14/2025: Patient seen at the ICU. Patient was successfully extubated yesterday. Patient is on 2 L oxygen. physical therapy tomorrow. Patient's passed swallow eval and diet was switched to soft mechanical diet. 04/15/25: Patient seen at the ICU. Patient is on 3 L oxygen. Patients diet changed to purred diet. discussion done with Daughter about patients condition and recommended discharge to snf. Consulted SS for SNF placement. Added IV fluconazole, and cefepime. Patient had a bowel movement . 04/16/2025: patient seen in ICU. patient was intubated yesterday due to possible aspiration, atelectasis. patient is on levo 14, winston 18, Versed 4, fentanyl 100, ventilator settings at FiO2 80%, peep of 5, VT 400, respiratory rate 22. Added vancomycin , methylprednisone. Ordered 2D echo, Patient's condition was discussed with daughter and possible regarding of tracheostomy. 04/17/2025 Patient seen in ICU. Patint is intubated, sedated echo still pending, today patient's hemoglobin dropped from 9.97.7 and platelets also dropped, held Lovenox, stool occult blood ordered. 04/18/2025: Patient seen in ICU. Continued to be on ventilation. Patient was received 1 unit of PRBCs yesterday evening. Has been hold anticoagulation. Patient continued to have bilateral wheezing, continue racing steroids, antibiotics, breathing treatment. Continue monitoring. No any other night complaints. Objective vital signs Vital Sign Date Time Temp Pulse Resp B/P (MAP) Pulse Ox O2 Delivery O2 Flow Rate FiO2 04/18/25 12:37 95 18 114/57 (76) 98 35 04/18/25 12:00 97.5 207.5 04/18/25 11:45 Mechanical Ventilator+ Total Intake and Output 04/17/25 04/17/25 04/18/25 15:00 23:00 07:00 Intake Total 550 ml 1343 ml 1260 ml Output Total 225 ml 150 ml Balance 550 ml 1118 ml 1110 ml medications Current Medications Medications Dose Ordered Sig/Guy Route Start Time Stop Time Status Last Admin Dose Admin Famotidine 20 mg Q12HR IV 04/03/25 10:00 04/18/25 08:04 20 MG Nitroglycerin 0.4 mg Q5MINP PRN SL 04/03/25 00:00 Norepinephrine Bitartrate 250 ml @ 3.75 mls/hr Q24H IV 04/03/25 10:00 UNV Fat Emulsion Intravenous 50 ml/ Sodium Chloride 40 meq/Potassium Chloride 20 meq/ Potassium Phosphate 44 meq/ Calcium Gluconate 2.3 meq/Magnesium Sulfate 8 meq/ Multivitamins 10 ml/Chromium/ Copper/Manganese/ Zinc 1 ml/Amino Acids/Dextrose/ Purified Water 1,047.9462 ml @ 44 mls/hr [id number] IV 04/06/25 22:00 04/06/25 22:00 Cancel Sodium Chloride 10 ml QSHIFT@10,22 IV 04/09/25 22:00 04/18/25 08:04 10 ML Fluconazole 100 ml @ 100 mls/hr DAILY IV 04/16/25 10:00 04/18/25 08:00 100 MLS/HR Midazolam HCl 100 ml @ 1 mls/hr Q24H IV 04/15/25 19:00 04/17/25 19:00 2 MLS/HR Fentanyl Citrate 250 ml @ 2.5 mls/hr Q24H IV 04/15/25 19:00 04/17/25 20:07 5 MLS/HR Phenylephrine HCl 250 ml @ 30 mls/hr Q8H20M IV 04/15/25 22:45 04/17/25 03:14 41.25 MLS/HR Vasopressin 20 units/Sodium Chloride 100 ml @ 9 mls/hr Q11H7M IV 04/15/25 22:45 04/18/25 01:51 9 MLS/HR Enoxaparin Sodium 40 mg DAILY SC 04/16/25 10:00 04/16/25 09:45 40 MG Methylprednisolone Sodium Succinate 40 mg Q8HR IV 04/16/25 14:00 04/18/25 05:17 40 MG Vancomycin HCl 0 ml @ 0 mls/hr PER PHARMACY IV 04/16/25 12:15 Ipratropium [place] 0.5 mg Q6HR NEB 04/16/25 18:00 04/18/25 07:08 0.5 MG Levalbuterol HCl 1.25 mg Q6HR NEB 04/16/25 18:00 04/18/25 07:06 1.25 MG Sodium Chloride 1,000 ml @ 50 mls/hr Q20H IV 04/16/25 12:30 04/18/25 03:48 50 MLS/HR Cefepime HCl 50 ml @ 12.5 mls/hr Q12H IV 04/17/25 11:00 04/18/25 10:33 12.5 MLS/HR Vancomycin HCl 100 ml @ 200 mls/hr Q24H IV 04/17/25 10:00 04/18/25 08:04 200 MLS/HR Norepinephrine Bitartrate 250 ml @ 3.75 mls/hr Q24H IV 04/17/25 19:45 04/17/25 19:45 3.75 MLS/HR Enteral Nutritional Formula 1,000 ml 30ML/HR GT 04/18/25 09:15 Examination General: Intubated, sedated, not opening eyes and not following commands HEENT: Normocephalic, atraumatic, moist mucous membranes Respiratory/pulmonary: diminished breath sounds bilaterally. Cardiovascular: Normal heart sounds S1 and S2 with no associated murmurs Abdomen: Abdomen nondistended, there is no pain to palpation in any of the abdominal quadrants, no palpable masses. Extremities: There is no peripheral edema present at the lower extremities. Peripheral Pulses: 3+ Radial (R). 3+ Radial (L). 3+ Dorsalis pedis (R). 3+ Dorsalis pedis(L) Skin: Multiple skin tears, no sacral wound present, Neurological: Pupils reactive, gag and cough reflex present laboratory and microbiology Laboratory Tests 04/18/25 02:42 Test 04/18/25 02:42 Range/Units Serum Glucose 124 H 74-106 mg/dL Microbiology Date/Time Source Procedure Growth Status 04/15/25 20:17 Sputum Gram Stain - Final Complete 04/15/25 20:17 Sputum Respiratory Culture - Final Complete 04/12/25 22:58 Stool Stool Culture - Final Complete 04/12/25 22:58 Stool Shiga Toxin I & II - Final Complete 04/05/25 08:00 Nose MRSA Screen - Final Complete 04/02/25 20:04 Blood Blood Culture - Final NO GROWTH AFTER 5 DAYS OF INCUBATION. Complete Problem List/Assessment/Plan Problem List/Assessment/Plan Neurology Acute metabolic/hypoxic encephalopathy likely due to COPD exacerbation - Mechanically ventilated, sedated: RASS score -3 - ventilator setting: on AC mode; RR 20,VT 350, Fio2-35%, PEEP-5 - neurology on board Cardiology Chronic diastolic Congestive heart failure - ordered 2D echo pending - as per daughter EF of 50% Respiratory Sepsis likely due to below Acute on chronic hypoxic respiratory failure secondary to acute COPD exacerbation/ pneumonia Acute G +/- Bacterial PNA possible atelectasis - continue bronchodilators, - continue Solu-Medrol 40 mg q.6 - chest xray: Slight interval advancement of the endotracheal tube such that the tip now projects approximately 3.9 cm above the level of the vani. Remaining lines and tubes unchanged. Stable chronic appearing bilateral interstitial pulmonary markings and mild bibasilar pulmonary airspace disease - IV metronidazole, azithromycin changed to doxycycline, cefepime, micafungin - Fluconazole, cefepime,(04/15), vancomycin(04/16) - respiratory culture -showed for filamentous fungi - Chest CT showed lower lobe consolidation, multiple small foci, severe centrilobar Emphysema. GI/Liver Cachexia BMI 15.3 Severe protein malnutrition Slow transit constipation - Miralax Hematology Anemia of chronic disease Iron deficiency anemia - monitor hemoglobin Renal Electrolytes hyponatremia hypocalcemia hypophosphatemia - replete electrolytes - Monitor electrolytes Lines/tubes/devices Airway: Intubated via ETT on 04/03/25 , extubated on 04/13/25, Re intubated (04/15) Vascular access: Central line Rt IJ 04/05 and Rt femoral 04/03 Drips: Fentanyl, midazolam Diet: Feeding via G-tube DVT prophylaxis: Lovenox(held due to low hemoglobin) GI prophylaxis: famotidine Great discussion taken place with Daughter for 37 mins about patients condition and poor prognosis, and possible Tracheostomy. Goals of car discussed with family for more than 29 minutes : Full code Care plan updated to the Daughter, critical time spent more than 84 minutes excluding procedures Case discussed with Dr. Vo , RN Plan discussed with: Other (RN) My Orders My Orders Orders - SHELL WELCH RESIDENT Procedure Category Date Status Time Nutritional PHA 04/18/25 In Process Supplements (Jevity 09:15 Tube Feeding DIET 04/18/25 Transmitted Breakfast Dietary Evaluation Review Comments: 1) If patient remains NPO > 7 days, consider EN/TPN to meet at least 75% estimated daily needs 2) If gut is preferred, initiate Vital High Protein @ 40 mL/hr goal rate as tolerated. Flush with 50 mL free H2O Q6H. EN regimen will provide 960 kcals, 84g Pro, and 1003 mL free H2O (including TF flushes) per 24 hrs. Goal rate will meet ~ 95% estimated energy needs and ~ 93% estimated protein needs 3) Advance to cardiac diet when medically feasible, pending ST approval 4) Refer to outpatient RD for weight management 5) Follow-up with cardiology and pulmonology 6) Continue to monitor I&O, labs, and skin integrity Expected Outcomes/Goals: 1) patient to receive nutritional support within 7 days of NPO status 2) labs to improve 3) diet to advance 4) gradual wt gain 5) f/u in 2-3 days SHELL WELCH RESIDENT Apr 18, 2025 12:44
[2025-04-18] MEDS: FAMOTIDINE (10MG/ML) 2ML VL IV SCH (20:22)
--- NOTE | 2025-04-18 20:34 | DVH ---
EXAM: XY CHEST PORTABLE HISTORY: NGT PLACEMENT TECHNIQUE: 1 view of the chest COMPARISON: XY CHEST XRAY 1 VIEW on DOS: 04/18/25 FINDINGS/IMPRESSION: LUNGS: Significant bibasilar hazy alveolar opacities and interstitial markings with suprahilar prominence of bronchovascular markings correlate for pneumonia which may be aspiration related the appearance is slightly worsened from prior examination. MEDIASTINUM: Unchanged BONES: Unchanged. Appearance of lateral rib fractures. OTHER: Enteric tube 2.6 cm above the vani. Enteric tube extending into the stomach left-sided PICC line with distal tip extending into the right atrium
--- NOTE | 2025-04-18 21:13 | DVHPN2 ---
Progress Note - Dictate Date Seen: Apr 18, 2025 Medical Necessity Reason Pt with a Central, PICC or Fol: Yes The following are medically ne: Central Line, Chin Catheter Subjective Ms. Cedeno is a 59 years old female with a history of hypotension, dyslipidemia, congestive heart failure, COPD, GERD, anxiety, she was brought to the [facility] on 03/30/2025 with a chief complaint of shortness breath. She choked when she was eating dinner and reintubated on 04/15/2025 I have seen and examined the patient in the ICU, she is intubated, responsive to light painful stimuli, possibly to light touch as well Fentanyl 50 mcg/hour, Versed 2 mg per hour, levo 0.5 mcg/minute, Pupil size: In the morning on 04/05/2025: Equal. Early afternoon: UPON REASSESSMENT, PUPILS WERE UNEQUAL. LEFT PUPIL IS AT 5 AND RIGHT PUPIL AT 3 AND SLUGGISH REACTION TO LIGHT. MD MCPHERSON NOTIFIED AND NEW ORDERS RECEIVED FOR STAT HEAD CT AND NEUROLOGIST CONSULT. 04/06/2025: Rt: 3, Lt: 3-4. 04/07/25: Rt: 2mm, Lt: 3mm 04/08/2025: Rt: 2mm, Lt: 3mm 04/08/2025: Rt: 2mm, Lt: 2mm 04/11/2025: Rt: 2mm, Lt: 4mm 04/12/2025: Rt: 2mm, Lt: 4mm 04/13/2025: Rt: 2mm, Lt: 4mm 04/14/2025: Rt: 2mm, Lt: 4mm 04/16/2025: Pupil size about 2-3 mm, right-sided slightly bigger 04/17/2025: Almost the same size, possibly left side bigger 04/18/2025: Small pupils, with the left-sided slightly bigger Blood culture, 04/02/2025: Negative UDS, 04/02/2025: Negative Plasma alcohol, 04/02/2025: <3 Urinalysis, 04/02/2025: WBC: 1, urine leukocyte esterase: Negative ABG, 04/05/2025: Carbon dioxide retention WBC/HB/PLT/MCV, 04/02/2025: 22.5/9.7/236/95.6, 04/03/2025: 71.9/10.8/245/96.3, 04/04/2025: 26.6/9.8/251/95.5, 04/06/2025: 14.5/8.8/278/93.6, 04/08/2025: 15.5/8.9/234/93.6. 04/17/25: 17.4/6.8/3/95.8, 04/18/2025: 20.1/10.5/88/91.3 CMP, 04/04/2025: Unremarkable Chest x-ray, 04/02/2025: Patchy [id number]-left bibasilar opacities, favoring infection Chest x-ray 04/05/2025: 1. Endotracheal tube 5.8 cm above the vani 2. Right internal jugular catheter in place at the cavoatrial junction. 3. Enteric tube below the left diaphragm less likely in the stomach. 4. IMPROVING airspace disease right lower lobe. Chest x-ray, 04/08/2025: 1. No acute cardiopulmonary disease. 2. Lines and tubes unchanged. Chest x-ray, 04/15/2025: Increased right lower lobe airspace disease CT head, 04/05/2025:1. No evidence of acute intracranial abnormality. 2. Mild subcortical and periventricular low attenuation, nonspecific but most commonly associated with sequelae of chronic microvascular ischemic changes although other etiologies are not excluded. vital signs Vital Sign Date Time Temp Pulse Resp B/P (MAP) Pulse Ox O2 Delivery O2 Flow Rate FiO2 04/18/25 20:23 90/47 04/18/25 20:10 96 18 97 35 04/18/25 20:00 97.9 208.2 04/18/25 17:35 Mechanical Ventilator+ Total Intake and Output 04/17/25 04/17/25 04/18/25 15:00 23:00 07:00 Intake Total 550 ml 1343 ml 1260 ml Output Total 225 ml 150 ml Balance 550 ml 1118 ml 1110 ml medications Current Medications Medications Dose Ordered Sig/Guy Route Start Time Stop Time Status Last Admin Dose Admin Nitroglycerin 0.4 mg Q5MINP PRN SL 04/03/25 00:00 Norepinephrine Bitartrate 250 ml @ 3.75 mls/hr Q24H IV 04/03/25 10:00 UNV Fat Emulsion Intravenous 50 ml/ Sodium Chloride 40 meq/Potassium Chloride 20 meq/ Potassium Phosphate 44 meq/ Calcium Gluconate 2.3 meq/Magnesium Sulfate 8 meq/ Multivitamins 10 ml/Chromium/ Copper/Manganese/ Zinc 1 ml/Amino Acids/Dextrose/ Purified Water 1,047.9462 ml @ 44 mls/hr [id number] IV 04/06/25 22:00 04/06/25 22:00 Cancel Sodium Chloride 10 ml QSHIFT@,22 IV 04/09/25 22:00 04/18/25 20:22 10 ML Fluconazole 100 ml @ 100 mls/hr DAILY IV 04/16/25 10:00 04/18/25 08:00 100 MLS/HR Midazolam HCl 100 ml @ 1 mls/hr Q24H IV 04/15/25 19:00 04/17/25 19:00 2 MLS/HR Fentanyl Citrate 250 ml @ 2.5 mls/hr Q24H IV 04/15/25 19:00 04/17/25 20:07 5 MLS/HR Phenylephrine HCl 250 ml @ 30 mls/hr Q8H20M IV 04/15/25 22:45 04/17/25 03:14 41.25 MLS/HR Vasopressin 20 units/Sodium Chloride 100 ml @ 9 mls/hr Q11H7M IV 04/15/25 22:45 04/18/25 01:51 9 MLS/HR Enoxaparin Sodium 40 mg DAILY SC 04/16/25 10:00 04/16/25 09:45 40 MG Methylprednisolone Sodium Succinate 40 mg Q8HR IV 04/16/25 14:00 04/18/25 20:21 40 MG Vancomycin HCl 0 ml @ 0 mls/hr PER PHARMACY IV 04/16/25 12:15 Ipratropium [place] 0.5 mg Q6HR NEB 04/16/25 18:00 04/18/25 18:43 0.5 MG Levalbuterol HCl 1.25 mg Q6HR NEB 04/16/25 18:00 04/18/25 18:43 1.25 MG Sodium Chloride 1,000 ml @ 50 mls/hr Q20H IV 04/16/25 12:30 04/18/25 03:48 50 MLS/HR Cefepime HCl 50 ml @ 12.5 mls/hr Q12H IV 04/17/25 11:00 04/18/25 20:24 12.5 MLS/HR Vancomycin HCl 100 ml @ 200 mls/hr Q24H IV 04/17/25 10:00 04/18/25 08:04 200 MLS/HR Norepinephrine Bitartrate 250 ml @ 3.75 mls/hr Q24H IV 04/17/25 19:45 04/18/25 20:23 0.938 MLS/HR Enteral Nutritional Formula 1,000 ml 30ML/HR GT 04/18/25 09:15 Famotidine 10 mg Q12HR IV 04/18/25 22:00 04/18/25 20:22 10 MG objective The patient is well-nourished and well-developed with no distress. The patient is intubated MENTAL STATUS: Subjective CRANIAL NERVES: Pupils are round and reactive.There are corneal reflexes and doll's eyes phenomenon. No signs of facial weakness. There are gagging or coughing reflexes and airway care SENSATION: No responses to pain stimuli. MOTOR: Normal tone in the upper and lower extremity. Normal muscle bulk. No fasciculations. No spontaneous movement. REFLEXES: Deep tendon reflexes are symmetrical. No pathological reflexes. CEREBELLAR/COORDINATION: Deferred GAIT/STATION: deferred. laboratory and microbiology Laboratory Tests 04/18/25 02:42 Test 04/18/25 02:42 Range/Units Serum Glucose 124 H 74-106 mg/dL Problem List Altered mental status, Hypoxic encephalopathy Metabolic encephalopathy Toxic encephalopathy Acute on chronic respiratory failure, reintubated on 04/15/2025 Pneumoniae, Leukocytosis/sepsis Anisocoria Etiology unclear Cachexia Assessment/Plan Monitoring Supportive treatment ICU Stabilize vitals/pressor drip Respiratory support/vent management Oxygen IV antibiotics DVT prophylaxis GI prophylaxis More recommendation per clinical course This medical document was created using an electronic medical record system with [employer] dictation system. Although this document has been carefully reviewed, there may still be some phonetic and typographical errors. These areas are purely typographical due to imperfections of the software programs, and do not reflect any compromise in the patient's medical care. Prognosis guarded Dietary Evaluation Review Comments: 1) If patient remains NPO > 7 days, consider EN/TPN to meet at least 75% estimated daily needs 2) If gut is preferred, initiate Vital High Protein @ 40 mL/hr goal rate as tolerated. Flush with 50 mL free H2O Q6H. EN regimen will provide 960 kcals, 84g Pro, and 1003 mL free H2O (including TF flushes) per 24 hrs. Goal rate will meet ~ 95% estimated energy needs and ~ 93% estimated protein needs 3) Advance to cardiac diet when medically feasible, pending ST approval 4) Refer to outpatient RD for weight management 5) Follow-up with cardiology and pulmonology 6) Continue to monitor I&O, labs, and skin integrity Expected Outcomes/Goals: 1) patient to receive nutritional support within 7 days of NPO status 2) labs to improve 3) diet to advance 4) gradual wt gain 5) f/u in 2-3 days Plan discussed with: RAMAN Perkins MD Apr 18, 2025 21:13
--- NOTE | 2025-04-18 21:56 | DVHPN2 ---
Consult Progress Note Objective vital signs Vital Sign Date Time Temp Pulse Resp B/P (MAP) Pulse Ox O2 Delivery O2 Flow Rate FiO2 04/18/25 20:23 90/47 04/18/25 20:10 96 18 97 35 04/18/25 20:00 97.9 208.2 04/18/25 17:35 Mechanical Ventilator+ Total Intake and Output 04/17/25 04/17/25 04/18/25 15:00 23:00 07:00 Intake Total 550 ml 1343 ml 1260 ml Output Total 225 ml 150 ml Balance 550 ml 1118 ml 1110 ml medications Current Medications Medications Dose Ordered Sig/Ugy Route Start Time Stop Time Status Last Admin Dose Admin Nitroglycerin 0.4 mg Q5MINP PRN SL 04/03/25 00:00 Norepinephrine Bitartrate 250 ml @ 3.75 mls/hr Q24H IV 04/03/25 10:00 UNV Fat Emulsion Intravenous 50 ml/ Sodium Chloride 40 meq/Potassium Chloride 20 meq/ Potassium Phosphate 44 meq/ Calcium Gluconate 2.3 meq/Magnesium Sulfate 8 meq/ Multivitamins 10 ml/Chromium/ Copper/Manganese/ Zinc 1 ml/Amino Acids/Dextrose/ Purified Water 1,047.9462 ml @ 44 mls/hr [id number] IV 04/06/25 22:00 04/06/25 22:00 Cancel Sodium Chloride 10 ml QSHIFT@10,22 IV 04/09/25 22:00 04/18/25 20:22 10 ML Fluconazole 100 ml @ 100 mls/hr DAILY IV 04/16/25 10:00 04/18/25 08:00 100 MLS/HR Midazolam HCl 100 ml @ 1 mls/hr Q24H IV 04/15/25 19:00 04/17/25 19:00 2 MLS/HR Fentanyl Citrate 250 ml @ 2.5 mls/hr Q24H IV 04/15/25 19:00 04/17/25 20:07 5 MLS/HR Phenylephrine HCl 250 ml @ 30 mls/hr Q8H20M IV 04/15/25 22:45 04/17/25 03:14 41.25 MLS/HR Vasopressin 20 units/Sodium Chloride 100 ml @ 9 mls/hr Q11H7M IV 04/15/25 22:45 04/18/25 01:51 9 MLS/HR Enoxaparin Sodium 40 mg DAILY SC 04/16/25 10:00 04/16/25 09:45 40 MG Methylprednisolone Sodium Succinate 40 mg Q8HR IV 04/16/25 14:00 04/18/25 20:21 40 MG Vancomycin HCl 0 ml @ 0 mls/hr PER PHARMACY IV 04/16/25 12:15 Ipratropium [place] 0.5 mg Q6HR NEB 04/16/25 18:00 04/18/25 18:43 0.5 MG Levalbuterol HCl 1.25 mg Q6HR NEB 04/16/25 18:00 04/18/25 18:43 1.25 MG Sodium Chloride 1,000 ml @ 50 mls/hr Q20H IV 04/16/25 12:30 04/18/25 03:48 50 MLS/HR Cefepime HCl 50 ml @ 12.5 mls/hr Q12H IV 04/17/25 11:00 04/18/25 20:24 12.5 MLS/HR Vancomycin HCl 100 ml @ 200 mls/hr Q24H IV 04/17/25 10:00 04/18/25 08:04 200 MLS/HR Norepinephrine Bitartrate 250 ml @ 3.75 mls/hr Q24H IV 04/17/25 19:45 04/18/25 20:23 0.938 MLS/HR Enteral Nutritional Formula 1,000 ml 30ML/HR GT 04/18/25 09:15 Famotidine 10 mg Q12HR IV 04/18/25 22:00 04/18/25 20:22 10 MG laboratory and microbiology Laboratory Tests 04/18/25 02:42 Test 04/18/25 02:42 Range/Units Serum Glucose 124 H 74-106 mg/dL Problem List/Assessment/Plan Problem List/Assessment/Plan ASSESSMENT AND PLAN: ID Problem List: -Community-acquired pneumonia (CXR: patchy right > left opacities) -Septic shock (ICU transfer in the setting of pneumonia; BP 94/54 noted) -Acute on chronic respiratory failure with hypercapnia (pH 7.35, pCO2 83.1) requiring mechanical ventilation -Suspected COPD exacerbation related to pneumonia -Prolonged QTc (503 ms) fluoroquinolones avoided -Penicillin allergy (unknown reaction, since 2021) -Leukocytosis (WBC 22.5 K/L) -Anemia (Hgb 9.7 g/dL) -Hyponatremia (Na 133 mmol/L) -History of CHF, GERD, anxiety, hypertension, hyperlipidemia; chronic hypotension noted Assessment This is a 59 y.o. female with a past medical history of CHF, anxiety, COPD, GERD, hypertension, hyperlipidemia, and chronic hypotension who presents with shortness of breath and hypoxemia (desaturation to 70% on 6 L NC). ED CXR showed patchy right greater than left opacities favoring infection; admitted for pneumonia. Transferred to ICU for septic shock in the setting of pneumonia. Viral testing (influenza A/B, COVID-19) negative. UA without growth. Blood cultures no growth to date (04/05). ABG with hypercapnia (pH 7.35, pCO2 83.1). BNP 38.81. EKG with QTc 503 ms. Preliminary sputum culture with rare filamentous fungi (awaiting further results). The clinical picture is consistent with pneumonia with concurrent COPD exacerbation and hypercapnic respiratory failure requiring mechanical ventilation. 04/05: CXR with improved pneumonia, persistent fevers, improved levophed 04/06: prolonged qtc , fungi filamentous on bronchial wash 04/14: sp 7 days doxycycline, mrsa nares negative, can stop doxycycline 04/17: worsening leukocytosis, stool blood positive hb 6.8 Plan: - defer to gi and primary team for anemia workup - given fungal pneumonia, consider downtitration of steroid therapy, defer to pulmonology and personal protection specialist team -Antimicrobials: -agree with empirically adding vancomycin, continue cefepime - continue fluconazole for filamentous fungi. will fu on speciation and sensitivities -Avoid fluoroquinolones due to prolonged QTc. -Follow up sputum culture results; adjust therapy per susceptibilities. -Follow up blood cultures; currently no growth to date (04/05). -Respiratory: -Mechanical ventilation management per personal protection specialist team; current settings documented below. -Wean as tolerated to high-flow nasal cannula when appropriate. -COPD therapies per pulmonology: bronchodilators, systemic steroids, mucolytics. -Monitoring: -Monitor temperature curve; if persistent fevers, reassess antimicrobial coverage. -Repeat chest X-ray daily. -Maintain MAP > 65 mmHg; titrate vasoactive support as needed. -Monitor QTc; continue to avoid QT-prolonging agents where feasible. 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 -Diagnostics: -Recommend sputum culture (pending/follow-up). -Continue to monitor labs (CBC, BMP, lactate) and ABGs as clinically indicated. Authorized and Performed by: Gordon Coley Total critical care time: Approximately 76 minutes Due to a high probability of clinically significant, life threatening deterioration, the patient required my highest level of preparedness to intervene emergently and I personally spent this critical care time directly and personally managing the patient. This critical care time included obtaining a history; examining the patient; pulse oximetry; ordering and review of studies; arranging urgent treatment with development of a management plan; evaluation of patient's response to treatment; frequent reassessment; and, discussions with other providers. This critical care time was performed to assess and manage the high probability of imminent, life-threatening deterioration that could result in multi-organ failure. It was exclusive of separately billable procedures and treating other patients and teaching time. Isolation Precautions: Not provided in transcript. \ Physical Exam: General: NAD Neck: Supple. No masses. HEENT: PERRL. Normal lids and conjunctiva. Moist mucous membranes. Oropharynx without lesions, exudates or excessive erythema. Normal appearance of the external aspects of the nose and ears. Heart: Regular rhythm, normal rate. No murmur. No lower extremity edema. Lungs: Normal respiratory effort. Clear to auscultation bilaterally. Wheezes present. Patient is mechanically ventilated. Abdomen: Soft. Non-tender. Non-distended. No masses or abdominal hernia. Msk: No digital cyanosis. Normal strength and tone in all 4 limbs Skin: Warm and dry, no rashes. Neuro: Alert. No facial droop or slurred speech. Extra-ocular movements intact. Sensation intact to soft touch in all 4 limbs. Psych: Appropriate mood. Full affect. Oriented to person, place, time, and situation. Dietary Evaluation Review Comments: 1) If patient remains NPO > 7 days, consider EN/TPN to meet at least 75% estimated daily needs 2) If gut is preferred, initiate Vital High Protein @ 40 mL/hr goal rate as tolerated. Flush with 50 mL free H2O Q6H. EN regimen will provide 960 kcals, 84g Pro, and 1003 mL free H2O (including TF flushes) per 24 hrs. Goal rate will meet ~ 95% estimated energy needs and ~ 93% estimated protein needs 3) Advance to cardiac diet when medically feasible, pending ST approval 4) Refer to outpatient RD for weight management 5) Follow-up with cardiology and pulmonology 6) Continue to monitor I&O, labs, and skin integrity Expected Outcomes/Goals: 1) patient to receive nutritional support within 7 days of NPO status 2) labs to improve 3) diet to advance 4) gradual wt gain 5) f/u in 2-3 days GORDON COLEY MD Apr 18, 2025 21:56
--- NOTE | 2025-04-18 21:56 | DVHPN2 ---
Consult Progress Note Objective vital signs Vital Sign Date Time Temp Pulse Resp B/P (MAP) Pulse Ox O2 Delivery O2 Flow Rate FiO2 04/18/25 20:23 90/47 04/18/25 20:10 96 18 97 35 04/18/25 20:00 97.9 208.2 04/18/25 17:35 Mechanical Ventilator+ Total Intake and Output 04/17/25 04/17/25 04/18/25 15:00 23:00 07:00 Intake Total 550 ml 1343 ml 1260 ml Output Total 225 ml 150 ml Balance 550 ml 1118 ml 1110 ml medications Current Medications Medications Dose Ordered Sig/Guy Route Start Time Stop Time Status Last Admin Dose Admin Nitroglycerin 0.4 mg Q5MINP PRN SL 04/03/25 00:00 Norepinephrine Bitartrate 250 ml @ 3.75 mls/hr Q24H IV 04/03/25 10:00 UNV Fat Emulsion Intravenous 50 ml/ Sodium Chloride 40 meq/Potassium Chloride 20 meq/ Potassium Phosphate 44 meq/ Calcium Gluconate 2.3 meq/Magnesium Sulfate 8 meq/ Multivitamins 10 ml/Chromium/ Copper/Manganese/ Zinc 1 ml/Amino Acids/Dextrose/ Purified Water 1,047.9462 ml @ 44 mls/hr [id number] IV 04/06/25 22:00 04/06/25 22:00 Cancel Sodium Chloride 10 ml QSHIFT@10,22 IV 04/09/25 22:00 04/18/25 20:22 10 ML Fluconazole 100 ml @ 100 mls/hr DAILY IV 04/16/25 10:00 04/18/25 08:00 100 MLS/HR Midazolam HCl 100 ml @ 1 mls/hr Q24H IV 04/15/25 19:00 04/17/25 19:00 2 MLS/HR Fentanyl Citrate 250 ml @ 2.5 mls/hr Q24H IV 04/15/25 19:00 04/17/25 20:07 5 MLS/HR Phenylephrine HCl 250 ml @ 30 mls/hr Q8H20M IV 04/15/25 22:45 04/17/25 03:14 41.25 MLS/HR Vasopressin 20 units/Sodium Chloride 100 ml @ 9 mls/hr Q11H7M IV 04/15/25 22:45 04/18/25 01:51 9 MLS/HR Enoxaparin Sodium 40 mg DAILY SC 04/16/25 10:00 04/16/25 09:45 40 MG Methylprednisolone Sodium Succinate 40 mg Q8HR IV 04/16/25 14:00 04/18/25 20:21 40 MG Vancomycin HCl 0 ml @ 0 mls/hr PER PHARMACY IV 04/16/25 12:15 Ipratropium [place] 0.5 mg Q6HR NEB 04/16/25 18:00 04/18/25 18:43 0.5 MG Levalbuterol HCl 1.25 mg Q6HR NEB 04/16/25 18:00 04/18/25 18:43 1.25 MG Sodium Chloride 1,000 ml @ 50 mls/hr Q20H IV 04/16/25 12:30 04/18/25 03:48 50 MLS/HR Cefepime HCl 50 ml @ 12.5 mls/hr Q12H IV 04/17/25 11:00 04/18/25 20:24 12.5 MLS/HR Vancomycin HCl 100 ml @ 200 mls/hr Q24H IV 04/17/25 10:00 04/18/25 08:04 200 MLS/HR Norepinephrine Bitartrate 250 ml @ 3.75 mls/hr Q24H IV 04/17/25 19:45 04/18/25 20:23 0.938 MLS/HR Enteral Nutritional Formula 1,000 ml 30ML/HR GT 04/18/25 09:15 Famotidine 10 mg Q12HR IV 04/18/25 22:00 04/18/25 20:22 10 MG laboratory and microbiology Laboratory Tests 04/18/25 02:42 Test 04/18/25 02:42 Range/Units Serum Glucose 124 H 74-106 mg/dL Problem List/Assessment/Plan Problem List/Assessment/Plan Today's Encounter Date: 04/06/2025 Patient Name: Pao Provider: Gordon Coley ASSESSMENT AND PLAN: ID Problem List: -Community-acquired pneumonia (CXR: patchy right > left opacities) -Septic shock (ICU transfer in the setting of pneumonia; BP 94/54 noted) -Acute on chronic respiratory failure with hypercapnia (pH 7.35, pCO2 83.1) requiring mechanical ventilation -Suspected COPD exacerbation related to pneumonia -Prolonged QTc (503 ms) fluoroquinolones avoided -Penicillin allergy (unknown reaction, since 2021) -Leukocytosis (WBC 22.5 K/L) -Anemia (Hgb 9.7 g/dL) -Hyponatremia (Na 133 mmol/L) -History of CHF, GERD, anxiety, hypertension, hyperlipidemia; chronic hypotension noted Assessment This is a 59 y.o. female with a past medical history of CHF, anxiety, COPD, GERD, hypertension, hyperlipidemia, and chronic hypotension who presents with shortness of breath and hypoxemia (desaturation to 70% on 6 L NC). ED CXR showed patchy right greater than left opacities favoring infection; admitted for pneumonia. Transferred to ICU for septic shock in the setting of pneumonia. Viral testing (influenza A/B, COVID-19) negative. UA without growth. Blood cultures no growth to date (04/05). ABG with hypercapnia (pH 7.35, pCO2 83.1). BNP 38.81. EKG with QTc 503 ms. Preliminary sputum culture with rare filamentous fungi (awaiting further results). The clinical picture is consistent with pneumonia with concurrent COPD exacerbation and hypercapnic respiratory failure requiring mechanical ventilation. 04/05: CXR with improved pneumonia, persistent fevers, improved levophed 04/06: prolonged qtc , fungi filamentous on cxr Plan: -Antimicrobials: -stop azithromycin and flagyl, swich to cefepime and doxycycline -start micafungin - test for cocci and aspergillus - agree with chest CT -Avoid fluoroquinolones due to prolonged QTc. -Follow up sputum culture results; adjust therapy per susceptibilities. -Follow up blood cultures; currently no growth to date (04/05). -Respiratory: -Mechanical ventilation management per strike planning applications team; current settings documented below. -Wean as tolerated to high-flow nasal cannula when appropriate. -COPD therapies per pulmonology: bronchodilators, systemic steroids, mucolytics. -Monitoring: -Monitor temperature curve; if persistent fevers, reassess antimicrobial coverage. -Repeat chest X-ray daily. -Maintain MAP > 65 mmHg; titrate vasoactive support as needed. -Monitor QTc; continue to avoid QT-prolonging agents where feasible. 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 -Diagnostics: -Recommend sputum culture (pending/follow-up). -Continue to monitor labs (CBC, BMP, lactate) and ABGs as clinically indicated. Authorized and Performed by: Gordon Coley Total critical care time: Approximately 76 minutes Due to a high probability of clinically significant, life threatening deterioration, the patient required my highest level of preparedness to intervene emergently and I personally spent this critical care time directly and personally managing the patient. This critical care time included obtaining a history; examining the patient; pulse oximetry; ordering and review of studies; arranging urgent treatment with development of a management plan; evaluation of patient's response to treatment; frequent reassessment; and, discussions with other providers. This critical care time was performed to assess and manage the high probability of imminent, life-threatening deterioration that could result in multi-organ failure. It was exclusive of separately billable procedures and treating other patients and teaching time. Isolation Precautions: Not provided in transcript. \ Physical Exam: General: NAD Neck: Supple. No masses. HEENT: PERRL. Normal lids and conjunctiva. Moist mucous membranes. Oropharynx without lesions, exudates or excessive erythema. Normal appearance of the external aspects of the nose and ears. Heart: Regular rhythm, normal rate. No murmur. No lower extremity edema. Lungs: Normal respiratory effort. Clear to auscultation bilaterally. Wheezes present. Patient is mechanically ventilated. Abdomen: Soft. Non-tender. Non-distended. No masses or abdominal hernia. Msk: No digital cyanosis. Normal strength and tone in all 4 limbs Skin: Warm and dry, no rashes. Neuro: Alert. No facial droop or slurred speech. Extra-ocular movements intact. Sensation intact to soft touch in all 4 limbs. Psych: Appropriate mood. Full affect. Oriented to person, place, time, and situation. Dietary Evaluation Review Comments: 1) If patient remains NPO > 7 days, consider EN/TPN to meet at least 75% estimated daily needs 2) If gut is preferred, initiate Vital High Protein @ 40 mL/hr goal rate as tolerated. Flush with 50 mL free H2O Q6H. EN regimen will provide 960 kcals, 84g Pro, and 1003 mL free H2O (including TF flushes) per 24 hrs. Goal rate will meet ~ 95% estimated energy needs and ~ 93% estimated protein needs 3) Advance to cardiac diet when medically feasible, pending ST approval 4) Refer to outpatient RD for weight management 5) Follow-up with cardiology and pulmonology 6) Continue to monitor I&O, labs, and skin integrity Expected Outcomes/Goals: 1) patient to receive nutritional support within 7 days of NPO status 2) labs to improve 3) diet to advance 4) gradual wt gain 5) f/u in 2-3 days GORDON COLEY MD Apr 18, 2025 21:55
--- NOTE | 2025-04-18 23:57 | DVHPN2 ---
Subjective DOS: 04/18/2025 Patient seen and examined at bedside. Sedated, intubated on mechanical ventilator. Overnight events reviewed. Changes from previous H/P or p: No Changes Eyes: No Pain, No Vision change, No Conjunctivae inflammation, No Eyelid inflammation, No Other, No Redness ENT: No Ear pain, No Ear discharge, No Nose pain, No Nose discharge, No Nose congestion, No Mouth pain, No Mouth swelling, No Throat pain, No Throat swelling, No Other Cardiovascular: No Chest Pain, No Palpitations, No Orthopnea, No Paroxysmal Noc. Dyspnea, No Edema, No Lt Headedness, No Other Respiratory: No Cough, No Dry; Shortness of breath; No SOB with excertion, No Wheezing, No Hemoptysis, No Pleuritic Pain, No Sputum; Other (SOB at rest) Gastrointestinal: No Nausea, No Vomiting, No Abdominal Pain, No Diarrhea, No Constipation, No Melena, No Hematochezia, No Other Genitourinary: No Dysuria, No Frequency, No Incontinence, No Hematuria, No Retention, No Other Musculoskeletal: No other, No neck pain, No shoulder pain, No arm pain, No back pain, No hand pain, No leg pain, No foot pain Skin: No Rash, No Lesions, No Jaundice, No Bruising, No Other Objective Vitals Vital Signs Date Time Temp Pulse Resp B/P (MAP) Pulse Ox O2 Delivery O2 Flow Rate FiO2 04/18/25 23:30 97.9 74 18 105/58 (74) 96 208.2 04/18/25 22:06 35 04/18/25 22:00 Mechanical Ventilator+ Intake/Output Intake and Output 04/18/25 07:00 Intake Total 3153 ml Output Total 375 ml Balance 2778 ml Intake Oral 0 ml IV Total 1450 ml Blood Product 300 ml Other 1403 ml Output Urine Total 375 ml # Bowel Movements 2 Exam Gen.: Patient lying in bed in medical ICU. Sedated, intubated on mechanical ventilator. Head: Normocephalic, atraumatic. Eyes: Pupils anisocoric. Ears: Normal external anatomy. Throat: Endotracheal tube and orogastric tube in place. Neck: Supple, trachea midline. Chest: Transmitted breath sounds bilaterally. Decreased air entry bilaterally. No wheezing. Bibasilar crackles. Cardiovascular: Positive S1, positive S2. Regular rate and rhythm. Abdomen: Positive bowel sounds in all 4 quadrants. Soft, nontender, nondistended. : Chin in place. Normal external genitalia. Rectal: Deferred. Skin: Warm, dry. Multiple skin tears Extremities: 2+ radial pulses bilaterally. No lower extremity edema. Neuro: Sedated. Medications Current Medications Medications Dose Ordered Sig/Guy Route Start Time Stop Time Status Last Admin Dose Admin Nitroglycerin 0.4 mg Q5MINP PRN SL 04/03/25 00:00 Norepinephrine Bitartrate 250 ml @ 3.75 mls/hr Q24H IV 04/03/25 10:00 UNV Fat Emulsion Intravenous 50 ml/ Sodium Chloride 40 meq/Potassium Chloride 20 meq/ Potassium Phosphate 44 meq/ Calcium Gluconate 2.3 meq/Magnesium Sulfate 8 meq/ Multivitamins 10 ml/Chromium/ Copper/Manganese/ Zinc 1 ml/Amino Acids/Dextrose/ Purified Water 1,047.9462 ml @ 44 mls/hr [id number] IV 04/06/25 22:00 04/06/25 22:00 Cancel Sodium Chloride 10 ml QSHIFT@10,22 IV 04/09/25 22:00 04/18/25 20:22 10 ML Fluconazole 100 ml @ 100 mls/hr DAILY IV 04/16/25 10:00 04/18/25 08:00 100 MLS/HR Midazolam HCl 100 ml @ 1 mls/hr Q24H IV 04/15/25 19:00 04/17/25 19:00 2 MLS/HR Fentanyl Citrate 250 ml @ 2.5 mls/hr Q24H IV 04/15/25 19:00 04/17/25 20:07 5 MLS/HR Phenylephrine HCl 250 ml @ 30 mls/hr Q8H20M IV 04/15/25 22:45 04/17/25 03:14 41.25 MLS/HR Vasopressin 20 units/Sodium Chloride 100 ml @ 9 mls/hr Q11H7M IV 04/15/25 22:45 04/18/25 01:51 9 MLS/HR Enoxaparin Sodium 40 mg DAILY SC 04/16/25 10:00 04/16/25 09:45 40 MG Methylprednisolone Sodium Succinate 40 mg Q8HR IV 04/16/25 14:00 04/18/25 20:21 40 MG Vancomycin HCl 0 ml @ 0 mls/hr PER PHARMACY IV 04/16/25 12:15 Ipratropium [place] 0.5 mg Q6HR NEB 04/16/25 18:00 04/18/25 18:43 0.5 MG Levalbuterol HCl 1.25 mg Q6HR NEB 04/16/25 18:00 04/18/25 18:43 1.25 MG Sodium Chloride 1,000 ml @ 50 mls/hr Q20H IV 04/16/25 12:30 04/18/25 23:47 50 MLS/HR Cefepime HCl 50 ml @ 12.5 mls/hr Q12H IV 04/17/25 11:00 04/18/25 20:24 12.5 MLS/HR Vancomycin HCl 100 ml @ 200 mls/hr Q24H IV 04/17/25 10:00 04/18/25 08:04 200 MLS/HR Norepinephrine Bitartrate 250 ml @ 3.75 mls/hr Q24H IV 04/17/25 19:45 04/18/25 20:23 0.938 MLS/HR Enteral Nutritional Formula 1,000 ml 30ML/HR GT 04/18/25 09:15 Famotidine 10 mg Q12HR IV 04/18/25 22:00 04/18/25 20:22 10 MG Laboratory Results Laboratory Tests 04/18/25 02:42 Chemistry Test 04/18/25 02:42 Albumin 2.3 g/dL (3.2-4.8) L Calcium Level 7.7 mg/dL (8.7-10.4) L Magnesium Level 2.0 mg/dL (1.6-2.6) Total Protein 3.9 g/dL (5.7-8.2) L LFT Test 04/18/25 02:42 Alanine Aminotransferase (ALT) 130 U/L (7-40) H Alkaline Phosphatase 80 U/L (46-116) Aspartate Amino Transferase (AST) 54 U/L (13-40) H Total Bilirubin 0.8 mg/dL (0.2-1.0) Urinalysis Test 04/02/25 20:38 Urine Color Yellow (Yellow) Urine Clarity Clear (Clear) Urine pH 5.5 (5.0-9.0) Urine Specific [place] 1.015 (1.001-1.035) Urine Protein Trace (Negative) H Urine Ketones Negative (Negative) Urine Blood Negative /uL (Negative) Urine Nitrite Negative (Negative) Urine Bilirubin Negative (Negative) Urine Urobilinogen Normal mg/dL (Negative) Urine Leukocyte Esterase Negative /uL (Negative) Urine RBC 1 /hpf (0 - 4) Urine Microscopic WBC 1 /HPF (0-5) Urine Squamous Epithelial Cells None seen /hpf (<5) Urine Bacteria None seen /hpf (None Seen) Urine Mucus Few (None Seen) Urine Glucose Normal mg/dL (Normal) Blood Gas Results Test 04/18/25 07:19 Arterial Blood pH 7.411 (7.350-7.450) FiO2 % 35.0 Microbiology Microbiology Date/Time Source Procedure Growth Status 04/15/25 20:17 Sputum Gram Stain - Final Complete 04/15/25 20:17 Sputum Respiratory Culture - Final Complete 04/12/25 22:58 Stool Stool Culture - Final Complete 04/12/25 22:58 Stool Shiga Toxin I & II - Final Complete 04/05/25 08:00 Nose MRSA Screen - Final Complete 04/02/25 20:04 Blood Blood Culture - Final NO GROWTH AFTER 5 DAYS OF INCUBATION. Complete Assessment/Plan Assessment/Plan Impression: Acute hypoxic respiratory failure On mechanical ventilator Acute COPD exacerbation Congestive heart failure Atelectasis Leukocytosis Cachexia, BMI 16.5 Events: Patient seen and examined at bedside. Note, patient was re-intubated on 04/15/25. Vent support On AC mode; RR 18, VT 400, PEEP 5, FiO2 35% Taper FIO2 as tolerated Sedated on Versed, Fentanyl. ABG reviewed, compensated. CXR reveals significant bibasilar hazy alveolar opacities and interstitial markings with suprahilar prominence of bronchovascular markings - correlate for pneumonia which may be aspiration related as the appearance is slightly worsened from prior examination. Pressors for hemodynamic support. On vasopressin 0.01 units/min Titrate to keep MAP greater than 65 mmHg. Improved pressor requirements - off Levophed and Milo-Synephrine Continue bronchodilators. Continue antibiotics Continue antifungal Follow up cultures Continue IV steroids Monitor WBC- trended up to 20.1 K Monitor hemoglobin - trended up to 10.5 g/dL S/p 1 unit PRBC. Monitor blood pressure Monitor renal function. Monitor electrolytes. Supplement as necessary. Magnesium supplementation Taper sedation overnight Plan for CPAP in the AM. Goals of care - Discussed with daughter about possible tracheostomy. Labs and imaging reviewed. Rest of plan as noted below. Plan: s/p intubation on mechanical ventilator. On AC mode; RR 18, VT 400, PEEP 5, FiO2 35% Titrate FIO2 to keep O2 saturation above 90%. VAP bundle. Daily ABG and CXR while intubated Continue bronchodilators. Continue antibiotics Monitor WBC Continue steroids Pressors as necessary for hemodynamic support. Titrate to keep MAP greater than 65 mmHg. Follow up Cardiology recs Monitor hemoglobin Transfuse if less than 7.0 g/dL. Monitor renal function. Monitor electrolytes. Supplement as necessary. Monitor ins and outs. GI/DVT prophylaxis. Prognosis: Poor given patient's multiple co-morbidities. Condition: Critical Rest of plan per hospitalist and other consultants. A total of 35 minutes of critical care time was spent reviewing the patient record, examining the patient, making a diagnostic and therapeutic plan, discussing this plan with the medical personnel, following up on diagnostic studies and following the patient for clinical stability excluding any and all procedures. At least 50% of this time was spent in direct, [id number] contact. Thank you, Dr. Hunter, for allowing me to participate in this patient's care. Further recommendations will depend on the patient's clinical course. Please do not hesitate to contact me if you have any questions or concerns. This medical document was created using an electronic medical record system with [employer] dictation system. Although these documentations are being carefully reviewed, there may still be some phonetic and typographical changes. The errors are purely typographical, due to imperfection on the software program, and do not reflect any compromise in the patient's medical care. Plan discussed with: Other (AMBER Aviles) My Orders Orders - LIDIA KLEIN MD Procedure Category Date Status Time Chest Portable XY 04/18/25 Resulted 18:08 Visit Coding Pulmonary Billing Provider: LIDIA KLEIN MD Date of Service if different f: Apr 18, 2025 Common Visit Codes: [id number] INP/OBS CARE(HIGH), [id number] CARE 30-74 MIN LIDIA KLEIN MD Apr 18, 2025 23:57
[2025-04-19] VITALS (112 sets, daily range): BP systolic 78–143; BP diastolic 42–86; PULSE 67–116; RESP 6–22; TEMP 67.5–99.1; O2SAT 88–100
[2025-04-19 03:57] LABS: Hematocrit 32.4 % (36.0-46.0); Hemoglobin 10.9 g/dL (12.2-16.2); Mean Corpuscular Hemoglobin 31.1 pg (28.0-32.0); Mean Corpuscular Volume 92.5 fL (80.0-100.0); Nucleated Red Blood Cells % 0.0 %
[2025-04-19 04:07] LABS: Potassium 3.8 mmol/L (3.5-5.1); Sodium 142 mmol/L (136-145)
[2025-04-19 04:08] LABS: Anion Gap 8 (5-15); Calcium 8.1 mg/dL (8.7-10.4); Carbon Dioxide 24 mmol/L (20-31); Chloride 110 mmol/L (98-107)
[2025-04-19 04:14] LABS: BUN/Creatinine Ratio 53.8 (10.0-20.0); Blood Urea Nitrogen 21 mg/dL (9-23); Magnesium 2.0 mg/dL (1.6-2.6)
[2025-04-19 04:35] LABS: Glucose 109 mg/dL (74-106)
--- NOTE | 2025-04-19 06:24 | DVH ---
EXAM: XY CHEST XRAY 1 VIEW HISTORY: On vent COMPARISON: XY CHEST PORTABLE on DOS: 04/18/25, XY CHEST XRAY 1 VIEW on DOS: 04/18/25, XY CHEST XRAY 1 VIEW on DOS: 04/17/25, XY CHEST PORTABLE on DOS: 04/16/25, XY CHEST XRAY 1 VIEW on DOS: 04/15/25, chest CT dated 03/08/2023 TECHNIQUE: Portable AP view of the chest was performed. FINDINGS: Endotracheal tube is re-identified with its tip 2.5 cm above the vani. OG tube and left upper extremity PICC line are re-identified. There is severe emphysema, better characterized on prior CT scan. No pneumothorax. There are bilateral lung base infiltrates partially obscuring the hemidiaphragms, e ssentially stable since the previous day. The heart is not enlarged. IMPRESSION: 1. Mechanical ventilation with tubes and lines as above. 2. Severe emphysema. 3. Stable bilateral lung base infiltrates.
[2025-04-19 08:55] LABS: Base Excess -0.4 mmol/L (-2.0-3.0)
--- NOTE | 2025-04-19 16:30 | DVHPNRES ---
Progress Note Date Seen: Apr 19, 2025 Resident Creating Document: CRICKET GUAMAN RESIDENT Medical Necessity Reason Pt with a Central, PICC or Fol: Yes The following are medically ne: Central Line, Chin Catheter Subjective Review of Systems Patient is a 59 year old female with past medical history of CHF, Chronic obstructive pulmonary disease, GERD, hyperlipidemia who presented to hospital with chief complaints of shortness of breath. As per daughter patient had increased work of breathing, uses home oxygen 2 L, which was increased to 6 L at home for which saturation improved to 94%. Patient in the ER became altered and was intubated on 04/03/25. as per daughter echocardiogram showed 50% in [facility]. x-ray showed Stable chronic appearing bilateral interstitial pulmonary markings and mild bibasilar pulmonary airspace disease. Past surgical history: Tonsillectomy family history: reviewed, noncontributory Social history: per daughter patient has smoked since she was 15 years old and nicotine vape, used methamphetamine 04/11/25: Patient seen in ICU. on cpap trial, on pressure support control, pulling 400 ml volume Psupport 10 and Peep 5 mm hg. plan for cpap trial tomorrow. 04/12/25: Patient seen in ICU. CPAP trial failed. NIf -13. we will try again tomorrow. 04/13/25: Patient seen in the ICU. patient was successfully extubated today. We will keep monitoring oxygen saturation, or possible need for BiPAP. Patient's daughter at bedside was explained about patient's condition and prognosis. 04/14/2025: Patient seen at the ICU. Patient was successfully extubated yesterday. Patient is on 2 L oxygen. physical therapy tomorrow. Patient's passed swallow eval and diet was switched to soft mechanical diet. 04/15/25: Patient seen at the ICU. Patient is on 3 L oxygen. Patients diet changed to purred diet. discussion done with Daughter about patients condition and recommended discharge to snf. Consulted SS for SNF placement. Added IV fluconazole, and cefepime. Patient had a bowel movement . 04/16/2025: patient seen in ICU. patient was intubated yesterday due to possible aspiration, atelectasis. patient is on levo 14, [place] 18, Versed 4, fentanyl 100, ventilator settings at FiO2 80%, peep of 5, VT 400, respiratory rate 22. Added vancomycin , methylprednisone. Ordered 2D echo, Patient's condition was discussed with daughter and possible regarding of tracheostomy. 04/17/2025 Patient seen in ICU. Patint is intubated, sedated echo still pending, today patient's hemoglobin dropped from 9.97.7 and platelets also dropped, held Lovenox, stool occult blood ordered. 04/18/2025: Patient seen in ICU. Continued to be on ventilation. Patient was received 1 unit of PRBCs yesterday evening. Has been hold anticoagulation. Patient continued to have bilateral wheezing, continue racing steroids, antibiotics, breathing treatment. Continue monitoring. No any other night complaints. 04/19/2025: Patient seen in ICU, continued on the ventilator, patient today does not have any wheezing, patient is continued on antibiotics, breathing treatment. CPAP trial tomorrow. Discussion done with the daughter regarding tracheostomy Tomorrow. Patient is on vasopressor, sedation. Objective vital signs Vital Sign Date Time Temp Pulse Resp B/P (MAP) Pulse Ox O2 Delivery O2 Flow Rate FiO2 04/19/25 16:15 98.2 89 15 131/70 (90) 93 208.8 04/19/25 16:05 35 04/19/25 16:00 Mechanical Ventilator+ Total Intake and Output 04/18/25 04/18/25 04/19/25 15:00 23:00 07:00 Intake Total 600 ml 400 ml 1304 ml Output Total 400 ml 1101 ml Balance 600 ml 0 ml 203 ml medications Current Medications Medications Dose Ordered Sig/Guy Route Start Time Stop Time Status Last Admin Dose Admin Nitroglycerin 0.4 mg Q5MINP PRN SL 04/03/25 00:00 Norepinephrine Bitartrate 250 ml @ 3.75 mls/hr Q24H IV 04/03/25 10:00 UNV Fat Emulsion Intravenous 50 ml/ Sodium Chloride 40 meq/Potassium Chloride 20 meq/ Potassium Phosphate 44 meq/ Calcium Gluconate 2.3 meq/Magnesium Sulfate 8 meq/ Multivitamins 10 ml/Chromium/ Copper/Manganese/ Zinc 1 ml/Amino Acids/Dextrose/ Purified Water 1,047.9462 ml @ 44 mls/hr [id number] IV 04/06/25 22:00 04/06/25 22:00 Cancel Sodium Chloride 10 ml QSHIFT@ IV 04/09/25 22:00 04/19/25 07:40 10 ML Fluconazole 100 ml @ 100 mls/hr DAILY IV 04/16/25 10:00 04/19/25 07:38 100 MLS/HR Midazolam HCl 100 ml @ 1 mls/hr Q24H IV 04/15/25 19:00 04/19/25 15:02 1 MLS/HR Fentanyl Citrate 250 ml @ 2.5 mls/hr Q24H IV 04/15/25 19:00 04/19/25 15:02 5 MLS/HR Phenylephrine HCl 250 ml @ 30 mls/hr Q8H20M IV 04/15/25 22:45 04/17/25 03:14 41.25 MLS/HR Vasopressin 20 units/Sodium Chloride 100 ml @ 9 mls/hr Q11H7M IV 04/15/25 22:45 04/18/25 01:51 9 MLS/HR Enoxaparin Sodium 40 mg DAILY SC 04/16/25 10:00 04/16/25 09:45 40 MG Methylprednisolone Sodium Succinate 40 mg Q8HR IV 04/16/25 14:00 04/19/25 13:55 40 MG Vancomycin HCl 0 ml @ 0 mls/hr PER PHARMACY IV 04/16/25 12:15 Ipratropium [place] 0.5 mg Q6HR NEB 04/16/25 18:00 04/19/25 11:25 0.5 MG Levalbuterol HCl 1.25 mg Q6HR NEB 04/16/25 18:00 04/19/25 11:25 1.25 MG Sodium Chloride 1,000 ml @ 50 mls/hr Q20H IV 04/16/25 12:30 04/18/25 23:47 50 MLS/HR Cefepime HCl 50 ml @ 12.5 mls/hr Q12H IV 04/17/25 11:00 04/19/25 10:55 12.5 MLS/HR Vancomycin HCl 100 ml @ 200 mls/hr Q24H IV 04/17/25 10:00 04/19/25 07:40 200 MLS/HR Norepinephrine Bitartrate 250 ml @ 3.75 mls/hr Q24H IV 04/17/25 19:45 04/18/25 20:23 0.938 MLS/HR Enteral Nutritional Formula 1,000 ml 30ML/HR GT 04/18/25 09:15 Famotidine 10 mg Q12HR IV 04/18/25 22:00 04/19/25 07:40 10 MG Examination General: Intubated, sedated, not opening eyes and not following commands HEENT: Normocephalic, atraumatic, moist mucous membranes Respiratory/pulmonary: diminished breath sounds bilaterally. Cardiovascular: Normal heart sounds S1 and S2 with no associated murmurs Abdomen: Abdomen nondistended, there is no pain to palpation in any of the abdominal quadrants, no palpable masses. Extremities: There is no peripheral edema present at the lower extremities. Peripheral Pulses: 3+ Radial (R). 3+ Radial (L). 3+ Dorsalis pedis (R). 3+ Dorsalis pedis(L) Skin: Multiple skin tears, no sacral wound present, Neurological: Pupils reactive, gag and cough reflex present laboratory and microbiology Laboratory Tests 04/19/25 03:05 Test 04/19/25 03:05 Range/Units Serum Glucose 109 H 74-106 mg/dL Microbiology Date/Time Source Procedure Growth Status 04/15/25 20:17 Sputum Gram Stain - Final Complete 04/15/25 20:17 Sputum Respiratory Culture - Final Complete 04/12/25 22:58 Stool Stool Culture - Final Complete 04/12/25 22:58 Stool Shiga Toxin I & II - Final Complete 04/05/25 08:00 Nose MRSA Screen - Final Complete 04/02/25 20:04 Blood Blood Culture - Final NO GROWTH AFTER 5 DAYS OF INCUBATION. Complete Problem List/Assessment/Plan Problem List/Assessment/Plan Neurology Acute metabolic/hypoxic encephalopathy likely due to COPD exacerbation - Mechanically ventilated, sedated: RASS score -3 - ventilator setting: on AC mode; RR 20,VT 350, Fio2-35%, PEEP-5 - neurology on board Cardiology Chronic diastolic Congestive heart failure - ordered 2D echo, - as per daughter EF of 50% Respiratory Sepsis likely due to below Acute on chronic hypoxic respiratory failure secondary to acute COPD exacerbation/ pneumonia Acute G +/- Bacterial PNA possible atelectasis - continue bronchodilators, - continue Solu-Medrol 40 mg - chest xray: Slight interval advancement of the endotracheal tube such that the tip now projects approximately 3.9 cm above the level of the vani. Remaining lines and tubes unchanged. Stable chronic appearing bilateral interstitial pulmonary markings and mild bibasilar pulmonary airspace disease - IV metronidazole, azithromycin changed to doxycycline, cefepime, micafungin - Fluconazole, cefepime,(04/15), vancomycin(04/16) - respiratory culture -showed for filamentous fungi - Chest CT showed lower lobe consolidation, multiple small foci, severe centrilobar Emphysema. GI/Liver Cachexia BMI 15.3 Severe protein malnutrition Slow transit constipation - Miralax Hematology Anemia of chronic disease Iron deficiency anemia - monitor hemoglobin Renal Electrolytes hyponatremia hypocalcemia hypophosphatemia - replete electrolytes - Monitor electrolytes Lines/tubes/devices Airway: Intubated via ETT on 04/03/25 , extubated on 04/13/25, Re intubated (04/15) Vascular access: Central line Rt IJ 04/05 and Rt femoral 04/03 Drips: Fentanyl, midazolam Diet: DVT prophylaxis: Lovenox(held due to low hemoglobin) GI prophylaxis: famotidine Great discussion taken place with Daughter for 37 mins about patients condition and poor prognosis, and possible Tracheostomy. Goals of car discussed with family for more than 29 minutes : Full code Care plan updated to the Daughter, critical time spent more than 84 minutes excluding procedures Case discussed with Dr. Rothman , RN Plan discussed with: Daughter Dietary Evaluation Review Comments: 1) If patient remains NPO > 7 days, consider EN/TPN to meet at least 75% estimated daily needs 2) If gut is preferred, initiate Vital High Protein @ 40 mL/hr goal rate as tolerated. Flush with 50 mL free H2O Q6H. EN regimen will provide 960 kcals, 84g Pro, and 1003 mL free H2O (including TF flushes) per 24 hrs. Goal rate will meet ~ 95% estimated energy needs and ~ 93% estimated protein needs 3) Advance to cardiac diet when medically feasible, pending ST approval 4) Refer to outpatient RD for weight management 5) Follow-up with cardiology and pulmonology 6) Continue to monitor I&O, labs, and skin integrity Expected Outcomes/Goals: 1) patient to receive nutritional support within 7 days of NPO status 2) labs to improve 3) diet to advance 4) gradual wt gain 5) f/u in 2-3 days CRICKET GUAMAN RESIDENT Apr 19, 2025 16:30
--- NOTE | 2025-04-19 20:01 | DVHPN2 ---
Progress Note - Dictate Date Seen: Apr 19, 2025 Medical Necessity Reason Pt with a Central, PICC or Fol: Yes The following are medically ne: Central Line, Chin Catheter Subjective Ms. Cedeno is a 59 years old female with a history of hypotension, dyslipidemia, congestive heart failure, COPD, GERD, anxiety, she was brought to the [facility] on 03/30/2025 with a chief complaint of shortness breath. She choked when she was eating dinner and reintubated on 04/15/2025 I have seen and examined the patient in the ICU, she is intubated, responsive to light touch and verbal stimuli, she moves her eyes and head, but no following Fentanyl 50 mcg/hour, Versed 2 mg per hour, levo 0.5 mcg/minute, Pupil size: In the morning on 04/05/2025: Equal. Early afternoon: UPON REASSESSMENT, PUPILS WERE UNEQUAL. LEFT PUPIL IS AT 5 AND RIGHT PUPIL AT 3 AND SLUGGISH REACTION TO LIGHT. MD MCPHERSON NOTIFIED AND NEW ORDERS RECEIVED FOR STAT HEAD CT AND NEUROLOGIST CONSULT. 04/06/2025: Rt: 3, Lt: 3-4. 04/07/25: Rt: 2mm, Lt: 3mm 04/08/2025: Rt: 2mm, Lt: 3mm 04/08/2025: Rt: 2mm, Lt: 2mm 04/11/2025: Rt: 2mm, Lt: 4mm 04/12/2025: Rt: 2mm, Lt: 4mm 04/13/2025: Rt: 2mm, Lt: 4mm 04/14/2025: Rt: 2mm, Lt: 4mm 04/16/2025: Pupil size about 2-3 mm, right-sided slightly bigger 04/17/2025: Almost the same size, possibly left side bigger 04/18/2025: Small pupils, with the left-sided slightly bigger 04/19/2025: very small and looks symmetric Blood culture, 04/02/2025: Negative UDS, 04/02/2025: Negative Plasma alcohol, 04/02/2025: <3 Urinalysis, 04/02/2025: WBC: 1, urine leukocyte esterase: Negative ABG, 04/05/2025: Carbon dioxide retention WBC/HB/PLT/MCV, 04/02/2025: 22.5/9.7/236/95.6, 04/03/2025: 71.9/10.8/245/96.3, 04/04/2025: 26.6/9.8/251/95.5, 04/06/2025: 14.5/8.8/278/93.6, 04/08/2025: 15.5/8.9/234/93.6. 04/17/25: 17.4/6.8/3/95.8, 04/18/2025: 20.1/10.5/88/91.3 CMP, 04/04/2025: Unremarkable Chest x-ray, 04/02/2025: Patchy [id number]-[id number]-left bibasilar opacities, favoring infection Chest x-ray 04/05/2025: 1. Endotracheal tube 5.8 cm above the vani 2. Right internal jugular catheter in place at the cavoatrial junction. 3. Enteric tube below the left diaphragm less likely in the stomach. 4. IMPROVING airspace disease right lower lobe. Chest x-ray, 04/08/2025: 1. No acute cardiopulmonary disease. 2. Lines and tubes unchanged. Chest x-ray, 04/15/2025: Increased right lower lobe airspace disease CT head, 04/05/2025:1. No evidence of acute intracranial abnormality. 2. Mild subcortical and periventricular low attenuation, nonspecific but most commonly associated with sequelae of chronic microvascular ischemic changes although other etiologies are not excluded. vital signs Vital Sign Date Time Temp Pulse Resp B/P (MAP) Pulse Ox O2 Delivery O2 Flow Rate FiO2 04/19/25 19:09 105 19 120/78 (92) 94 35 04/19/25 19:09 Mechanical Ventilator 04/19/25 18:45 98.1 208.6 Total Intake and Output 04/18/25 04/18/25 04/19/25 15:00 23:00 07:00 Intake Total 600 ml 400 ml 1304 ml Output Total 400 ml 1101 ml Balance 600 ml 0 ml 203 ml medications Current Medications Medications Dose Ordered Sig/Guy Route Start Time Stop Time Status Last Admin Dose Admin Nitroglycerin 0.4 mg Q5MINP PRN SL 04/03/25 00:00 Norepinephrine Bitartrate 250 ml @ 3.75 mls/hr Q24H IV 04/03/25 10:00 UNV Fat Emulsion Intravenous 50 ml/ Sodium Chloride 40 meq/Potassium Chloride 20 meq/ Potassium Phosphate 44 meq/ Calcium Gluconate 2.3 meq/Magnesium Sulfate 8 meq/ Multivitamins 10 ml/Chromium/ Copper/Manganese/ Zinc 1 ml/Amino Acids/Dextrose/ Purified Water 1,047.9462 ml @ 44 mls/hr [id number] IV 04/06/25 22:00 04/06/25 22:00 Cancel Sodium Chloride 10 ml QSHIFT@10,22 IV 04/09/25 22:00 04/19/25 07:40 10 ML Fluconazole 100 ml @ 100 mls/hr DAILY IV 04/16/25 10:00 04/19/25 07:38 100 MLS/HR Midazolam HCl 100 ml @ 1 mls/hr Q24H IV 04/15/25 19:00 04/19/25 15:02 1 MLS/HR Fentanyl Citrate 250 ml @ 2.5 mls/hr Q24H IV 04/15/25 19:00 04/19/25 15:02 5 MLS/HR Phenylephrine HCl 250 ml @ 30 mls/hr Q8H20M IV 04/15/25 22:45 04/17/25 03:14 41.25 MLS/HR Vasopressin 20 units/Sodium Chloride 100 ml @ 9 mls/hr Q11H7M IV 04/15/25 22:45 04/18/25 01:51 9 MLS/HR Enoxaparin Sodium 40 mg DAILY SC 04/16/25 10:00 04/16/25 09:45 40 MG Methylprednisolone Sodium Succinate 40 mg Q8HR IV 04/16/25 14:00 04/19/25 13:55 40 MG Vancomycin HCl 0 ml @ 0 mls/hr PER PHARMACY IV 04/16/25 12:15 Ipratropium [place] 0.5 mg Q6HR NEB 04/16/25 18:00 04/19/25 19:08 0.5 MG Levalbuterol HCl 1.25 mg Q6HR NEB 04/16/25 18:00 04/19/25 19:08 1.25 MG Sodium Chloride 1,000 ml @ 50 mls/hr Q20H IV 04/16/25 12:30 04/18/25 23:47 50 MLS/HR Cefepime HCl 50 ml @ 12.5 mls/hr Q12H IV 04/17/25 11:00 04/19/25 10:55 12.5 MLS/HR Vancomycin HCl 100 ml @ 200 mls/hr Q24H IV 04/17/25 10:00 04/19/25 07:40 200 MLS/HR Norepinephrine Bitartrate 250 ml @ 3.75 mls/hr Q24H IV 04/17/25 19:45 04/18/25 20:23 0.938 MLS/HR Enteral Nutritional Formula 1,000 ml 30ML/HR GT 04/18/25 09:15 Famotidine 10 mg Q12HR IV 04/18/25 22:00 04/19/25 07:40 10 MG objective The patient is well-nourished and well-developed with no distress. The patient is intubated MENTAL STATUS: Subjective CRANIAL NERVES: Pupils are round and reactive.There are corneal reflexes and doll's eyes phenomenon. No signs of facial weakness. There are gagging or coughing reflexes and airway care SENSATION: No responses to pain stimuli. MOTOR: Normal tone in the upper and lower extremity. Normal muscle bulk. No fasciculations. No spontaneous movement. REFLEXES: Deep tendon reflexes are symmetrical. No pathological reflexes. CEREBELLAR/COORDINATION: Deferred GAIT/STATION: deferred. laboratory and microbiology Laboratory Tests 04/19/25 03:05 Test 04/19/25 03:05 Range/Units Serum Glucose 109 H 74-106 mg/dL Problem List Altered mental status, Hypoxic encephalopathy Metabolic encephalopathy Toxic encephalopathy Acute on chronic respiratory failure, reintubated on 04/15/2025 Pneumoniae, Leukocytosis/sepsis Anisocoria Etiology unclear Cachexia Assessment/Plan Monitoring Supportive treatment ICU Stabilize vitals/pressor drip Respiratory support/vent management Oxygen IV antibiotics DVT prophylaxis GI prophylaxis More recommendation per clinical course This medical document was created using an electronic medical record system with [employer] dictation system. Although this document has been carefully reviewed, there may still be some phonetic and typographical errors. These areas are purely typographical due to imperfections of the software programs, and do not reflect any compromise in the patient's medical care. Prognosis poor Dietary Evaluation Review Comments: 1) If patient remains NPO > 7 days, consider EN/TPN to meet at least 75% estimated daily needs 2) If gut is preferred, initiate Vital High Protein @ 40 mL/hr goal rate as tolerated. Flush with 50 mL free H2O Q6H. EN regimen will provide 960 kcals, 84g Pro, and 1003 mL free H2O (including TF flushes) per 24 hrs. Goal rate will meet ~ 95% estimated energy needs and ~ 93% estimated protein needs 3) Advance to cardiac diet when medically feasible, pending ST approval 4) Refer to outpatient RD for weight management 5) Follow-up with cardiology and pulmonology 6) Continue to monitor I&O, labs, and skin integrity Expected Outcomes/Goals: 1) patient to receive nutritional support within 7 days of NPO status 2) labs to improve 3) diet to advance 4) gradual wt gain 5) f/u in 2-3 days Plan discussed with: Other RAMAN LAWTON MD Apr 19, 2025 20:01
--- NOTE | 2025-04-19 23:13 | DVHPN2 ---
Subjective DOS: 04/19/2025 Patient seen and examined at bedside. Sedated, intubated on mechanical ventilator. Overnight events reviewed. Changes from previous H/P or p: No Changes Eyes: No Pain, No Vision change, No Conjunctivae inflammation, No Eyelid inflammation, No Other, No Redness ENT: No Ear pain, No Ear discharge, No Nose pain, No Nose discharge, No Nose congestion, No Mouth pain, No Mouth swelling, No Throat pain, No Throat swelling, No Other Cardiovascular: No Chest Pain, No Palpitations, No Orthopnea, No Paroxysmal Noc. Dyspnea, No Edema, No Lt Headedness, No Other Respiratory: No Cough, No Dry; Shortness of breath; No SOB with excertion, No Wheezing, No Hemoptysis, No Pleuritic Pain, No Sputum; Other (SOB at rest) Gastrointestinal: No Nausea, No Vomiting, No Abdominal Pain, No Diarrhea, No Constipation, No Melena, No Hematochezia, No Other Genitourinary: No Dysuria, No Frequency, No Incontinence, No Hematuria, No Retention, No Other Musculoskeletal: No other, No neck pain, No shoulder pain, No arm pain, No back pain, No hand pain, No leg pain, No foot pain Skin: No Rash, No Lesions, No Jaundice, No Bruising, No Other Objective Vitals Vital Signs Date Time Temp Pulse Resp B/P (MAP) Pulse Ox O2 Delivery O2 Flow Rate FiO2 04/19/25 22:37 73 18 136/76 (96) 95 35 04/19/25 19:09 Mechanical Ventilator 04/19/25 18:45 98.1 208.6 Intake/Output Intake and Output 04/19/25 07:00 Intake Total 2304 ml Output Total 1501 ml Balance 803 ml Intake Oral 20 ml IV Total 1450 ml Tube Feeding 40 ml Other 794 ml Output Urine Total 1500 ml Stool Total 1 ml Exam Gen.: Patient lying in bed in medical ICU. Sedated, intubated on mechanical ventilator. Head: Normocephalic, atraumatic. Eyes: Pupils anisocoric. Ears: Normal external anatomy. Throat: Endotracheal tube and orogastric tube in place. Neck: Supple, trachea midline. Chest: Transmitted breath sounds bilaterally. Decreased air entry bilaterally. No wheezing. Bibasilar crackles. Cardiovascular: Positive S1, positive S2. Regular rate and rhythm. Abdomen: Positive bowel sounds in all 4 quadrants. Soft, nontender, nondistended. : Chin in place. Normal external genitalia. Rectal: Deferred. Skin: Warm, dry. Multiple skin tears Extremities: 2+ radial pulses bilaterally. No lower extremity edema. Neuro: Sedated. Medications Current Medications Medications Dose Ordered Sig/Guy Route Start Time Stop Time Status Last Admin Dose Admin Nitroglycerin 0.4 mg Q5MINP PRN SL 04/03/25 00:00 Norepinephrine Bitartrate 250 ml @ 3.75 mls/hr Q24H IV 04/03/25 10:00 UNV Fat Emulsion Intravenous 50 ml/ Sodium Chloride 40 meq/Potassium Chloride 20 meq/ Potassium Phosphate 44 meq/ Calcium Gluconate 2.3 meq/Magnesium Sulfate 8 meq/ Multivitamins 10 ml/Chromium/ Copper/Manganese/ Zinc 1 ml/Amino Acids/Dextrose/ Purified Water 1,047.9462 ml @ 44 mls/hr [id number] IV 04/06/25 22:00 04/06/25 22:00 Cancel Sodium Chloride 10 ml QSHIFT@10,22 IV 04/09/25 22:00 04/19/25 21:30 10 ML Fluconazole 100 ml @ 100 mls/hr DAILY IV 04/16/25 10:00 04/19/25 07:38 100 MLS/HR Midazolam HCl 100 ml @ 1 mls/hr Q24H IV 04/15/25 19:00 04/19/25 15:02 1 MLS/HR Fentanyl Citrate 250 ml @ 2.5 mls/hr Q24H IV 04/15/25 19:00 04/19/25 15:02 5 MLS/HR Phenylephrine HCl 250 ml @ 30 mls/hr Q8H20M IV 04/15/25 22:45 04/17/25 03:14 41.25 MLS/HR Vasopressin 20 units/Sodium Chloride 100 ml @ 9 mls/hr Q11H7M IV 04/15/25 22:45 04/18/25 01:51 9 MLS/HR Enoxaparin Sodium 40 mg DAILY SC 04/16/25 10:00 04/16/25 09:45 40 MG Methylprednisolone Sodium Succinate 40 mg Q8HR IV 04/16/25 14:00 04/19/25 21:30 40 MG Vancomycin HCl 0 ml @ 0 mls/hr PER PHARMACY IV 04/16/25 12:15 Ipratropium [place] 0.5 mg Q6HR NEB 04/16/25 18:00 04/19/25 19:08 0.5 MG Levalbuterol HCl 1.25 mg Q6HR NEB 04/16/25 18:00 04/19/25 19:08 1.25 MG Sodium Chloride 1,000 ml @ 50 mls/hr Q20H IV 04/16/25 12:30 04/19/25 21:31 50 MLS/HR Cefepime HCl 50 ml @ 12.5 mls/hr Q12H IV 04/17/25 11:00 04/19/25 23:04 12.5 MLS/HR Vancomycin HCl 100 ml @ 200 mls/hr Q24H IV 04/17/25 10:00 04/19/25 07:40 200 MLS/HR Norepinephrine Bitartrate 250 ml @ 3.75 mls/hr Q24H IV 04/17/25 19:45 04/18/25 20:23 0.938 MLS/HR Enteral Nutritional Formula 1,000 ml 30ML/HR GT 04/18/25 09:15 Famotidine 10 mg Q12HR IV 04/18/25 22:00 04/19/25 21:30 10 MG Laboratory Results Laboratory Tests 04/19/25 03:05 Chemistry Test 04/19/25 03:05 Calcium Level 8.1 mg/dL (8.7-10.4) L Magnesium Level 2.0 mg/dL (1.6-2.6) Phosphorus Level 2.5 mg/dL (2.4-5.1) Urinalysis Test 04/02/25 20:38 Urine Color Yellow (Yellow) Urine Clarity Clear (Clear) Urine pH 5.5 (5.0-9.0) Urine Specific [place] 1.015 (1.001-1.035) Urine Protein Trace (Negative) H Urine Ketones Negative (Negative) Urine Blood Negative /uL (Negative) Urine Nitrite Negative (Negative) Urine Bilirubin Negative (Negative) Urine Urobilinogen Normal mg/dL (Negative) Urine Leukocyte Esterase Negative /uL (Negative) Urine RBC 1 /hpf (0 - 4) Urine Microscopic WBC 1 /HPF (0-5) Urine Squamous Epithelial Cells None seen /hpf (<5) Urine Bacteria None seen /hpf (None Seen) Urine Mucus Few (None Seen) Urine Glucose Normal mg/dL (Normal) Blood Gas Results Test 04/19/25 08:51 Arterial Blood pH 7.460 (7.350-7.450) FiO2 % 30.0 Microbiology Microbiology Date/Time Source Procedure Growth Status 04/15/25 20:17 Sputum Gram Stain - Final Complete 04/15/25 20:17 Sputum Respiratory Culture - Final Complete 04/12/25 22:58 Stool Stool Culture - Final Complete 04/12/25 22:58 Stool Shiga Toxin I & II - Final Complete 04/05/25 08:00 Nose MRSA Screen - Final Complete 04/02/25 20:04 Blood Blood Culture - Final NO GROWTH AFTER 5 DAYS OF INCUBATION. Complete Assessment/Plan Assessment/Plan Impression: Acute hypoxic respiratory failure On mechanical ventilator Acute COPD exacerbation Congestive heart failure Atelectasis Leukocytosis Cachexia, BMI 16.5 Events: Patient seen and examined at bedside. Note, patient was re-intubated on 04/15/25. Vent support On AC mode; RR 22, VT 400, PEEP 5, FiO2 30% Taper FIO2 as tolerated Sedated on Versed, Fentanyl. ABG reviewed, notable for alkalemia CXR reveals severe emphysema. Stable bilateral lung base infiltrates. Pressors for hemodynamic support. On Levophed 1 mcg/min Titrate to keep MAP greater than 65 mmHg. Monitor blood pressure Continue bronchodilators. Continue antibiotics Continue antifungal Follow up cultures Continue IV steroids Tube feeds for nutritional support Monitor WBC- trended up to 27.4 K Monitor hemoglobin - stable at 10.9 g/dL S/p 1 unit PRBC yesterday. Taper sedation as tolerated SBT/RITO Continue CPAP Goals of care - Discussed with daughter about possible tracheostomy. Labs and imaging reviewed. Rest of plan as noted below. Plan: s/p intubation on mechanical ventilator. On AC mode; RR 22, VT 400, PEEP 5, FiO2 30% Titrate FIO2 to keep O2 saturation above 90%. VAP bundle. Daily ABG and CXR while intubated Continue bronchodilators. Continue antibiotics Monitor WBC Continue steroids Pressors as necessary for hemodynamic support. Titrate to keep MAP greater than 65 mmHg. Follow up Cardiology recs Monitor hemoglobin Transfuse if less than 7.0 g/dL. Monitor renal function. Monitor electrolytes. Supplement as necessary. Monitor ins and outs. GI/DVT prophylaxis. Prognosis: Poor given patient's multiple co-morbidities. Condition: Critical Rest of plan per hospitalist and other consultants. A total of 35 minutes of critical care time was spent reviewing the patient record, examining the patient, making a diagnostic and therapeutic plan, discussing this plan with the medical personnel, following up on diagnostic studies and following the patient for clinical stability excluding any and all procedures. At least 50% of this time was spent in direct, [id number] contact. Thank you, Dr. Hunter, for allowing me to participate in this patient's care. Further recommendations will depend on the patient's clinical course. Please do not hesitate to contact me if you have any questions or concerns. This medical document was created using an electronic medical record system with [employer] dictation system. Although these documentations are being carefully reviewed, there may still be some phonetic and typographical changes. The errors are purely typographical, due to imperfection on the software program, and do not reflect any compromise in the patient's medical care. Plan discussed with: Other (AMBER Aviles) My Orders Orders - LIDIA KLEIN MD Procedure Category Date Status Time Ventilator Orders RT 04/19/25 Transmitted 13:00 Cpap Trial For Am ORDERS 04/20/25 Transmitted 04:00 Visit Coding Pulmonary Billing Provider: LIDIA KLEIN MD Date of Service if different f: Apr 19, 2025 Common Visit Codes: [id number] INP/OBS CARE(HIGH), 74565-[id number] CARE 30-74 MIN LIDIA KLEIN MD Apr 19, 2025 23:13
[2025-04-20] VITALS (104 sets, daily range): BP systolic 96–154; BP diastolic 54–94; PULSE 65–128; RESP 13–21; TEMP 95.5–99.7; O2SAT 75–100
--- NOTE | 2025-04-20 01:34 | DVH ---
CHEST RADIOGRAPH Indication: on vent Technique: Single frontal view of the chest was obtained COMPARISON: XY CHEST XRAY 1 VIEW on DOS: 04/19/25, XY CHEST PORTABLE on DOS: 04/18/25, XY CHEST XRAY 1 VIEW on DOS: 04/18/25, XY CHEST XRAY 1 VIEW on DOS: 04/17/25, XY CHEST PORTABLE on DOS: 04/16/25 FINDINGS: Lines and Tubes: Unchanged. Lungs: Stable appearing small bilateral pleural effusions and bibasilar pulmonary airspace disease. No pneumothorax. Cardiomediastinal contours: Unremarkable Bones: Unremarkable IMPRESSION: 1. Stable small bilateral pleural effusions and bibasilar pulmonary airspace disease. 2. Lines and tubes unchanged.
[2025-04-20 02:55] LABS: Hematocrit 29.5 % (36.0-46.0); Hemoglobin 9.6 g/dL (12.2-16.2); Mean Corpuscular Hemoglobin 30.2 pg (28.0-32.0); Mean Corpuscular Volume 93.0 fL (80.0-100.0); Nucleated Red Blood Cells % 0.0 %
[2025-04-20 03:10] LABS: Alkaline Phosphatase 69 U/L (46-116); Anion Gap 9 (5-15); BUN/Creatinine Ratio 63.9 (10.0-20.0); Bilirubin, Total 0.5 mg/dL (0.2-1.0); Blood Urea Nitrogen 23 mg/dL (9-23); Carbon Dioxide 23 mmol/L (20-31); Magnesium 1.7 mg/dL (1.6-2.6)
[2025-04-20 03:16] LABS: Alanine Aminotransferase 80 U/L (7-40); Albumin 2.2 g/dL (3.2-4.8); Calcium 7.6 mg/dL (8.7-10.4); Chloride 114 mmol/L (98-107); Glucose 127 mg/dL (74-106); Potassium 3.2 mmol/L (3.5-5.1); Sodium 146 mmol/L (136-145); Total Protein 3.8 g/dL (5.7-8.2)
[2025-04-20 06:27] LABS: Base Excess -2.4 mmol/L (-2.0-3.0)
[2025-04-20] MEDS: POTASSIUM CHL 20MEQ/100ML 100 ML IV ONE (07:31)
[2025-04-20] MEDS: MAGNESIUM SULFATE 1GM/100ML 100 ML IV ONE (09:00)
--- NOTE | 2025-04-20 10:24 | DVHSR ---
APPROVED REPORT EXAM: Two-dimensional and M-mode echocardiogram with Doppler and color Doppler. Blood Pressure: 125/59 mmHg INDICATION CHF RISK FACTORS Height: 60, Weight: 80 DIMENSIONS LVDd 2.9 (3.8-5.7cm) LA (2D) (1.9-4.0cm) Aortic Root 3.4 (2.0-3.7cm) LVDs 2.2 (2.5-4.0cm) LA (MM) (1.9-4.0cm) Aortic Cusp Exc 1.2 (1.5-2.0cm) EF (%) 50.0 (55-70%) Rt. Atrium (1.9-4.0cm) Asc. Aorta cm IVSd 1.0 (0.7-1.1cm) RV (D) (1.8-2.4cm) PWd 0.9 (0.7-1.1cm) Mitral Valve Mitral Mitral Stenosis E/A ratio 0.0 2D MVA cm2 Aortic Valve Aortic Valve Aortic Stenosis LVOT Diameter 1.8 (1.8-2.4cm) Doppler GENEVIEVE cm2 Pulmonic Valve V2 0.54m/s Tricuspid Valve TR Velocity 2.12m/s RVSP 24mmHg Other Information Technically limited study due to body habitus, patient position and patient on a vent. Conclusion limited study lvef 35% tachycardia during study RV enlarged small to moderate pericardial effsuion adjacent to RV , no tamponade
--- NOTE | 2025-04-20 10:29 | DVHPN2 ---
Progress Note - Dictate Date Seen: Apr 20, 2025 Medical Necessity Reason Pt with a Central, PICC or Fol: Yes The following are medically ne: Central Line, Chin Catheter Subjective Ms. Cedeno is a 59 years old female with a history of hypotension, dyslipidemia, congestive heart failure, COPD, GERD, anxiety, she was brought to the [facility] on 03/30/2025 with a chief complaint of shortness breath. She choked when she was eating dinner and reintubated on 04/15/2025 I have seen and examined the patient in the ICU, she is intubated, responsive to light touch and verbal stimuli, she moves her eyes and head, but no following Fentanyl 25 mcg/hour, Versed 1 mg per hour, Pupil size: In the morning on 04/05/2025: Equal. Early afternoon: UPON REASSESSMENT, PUPILS WERE UNEQUAL. LEFT PUPIL IS AT 5 AND RIGHT PUPIL AT 3 AND SLUGGISH REACTION TO LIGHT. MD MCPHERSON NOTIFIED AND NEW ORDERS RECEIVED FOR STAT HEAD CT AND NEUROLOGIST CONSULT. 04/06/2025: Rt: 3, Lt: 3-4. 04/07/25: Rt: 2mm, Lt: 3mm 04/08/2025: Rt: 2mm, Lt: 3mm 04/08/2025: Rt: 2mm, Lt: 2mm 04/11/2025: Rt: 2mm, Lt: 4mm 04/12/2025: Rt: 2mm, Lt: 4mm 04/13/2025: Rt: 2mm, Lt: 4mm 04/14/2025: Rt: 2mm, Lt: 4mm 04/16/2025: Pupil size about 2-3 mm, right-sided slightly bigger 04/17/2025: Almost the same size, possibly left side bigger 04/18/2025: Small pupils, with the left-sided slightly bigger 04/19/2025: very small and looks symmetric 04/20/2025: Rt: 2mm, Lt: 2-3mm Blood culture, 04/02/2025: Negative UDS, 04/02/2025: Negative Plasma alcohol, 04/02/2025: <3 Urinalysis, 04/02/2025: WBC: 1, urine leukocyte esterase: Negative ABG, 04/05/2025: Carbon dioxide retention WBC/HB/PLT/MCV, 04/02/2025: 22.5/9.7/236/95.6, 04/03/2025: 71.9/10.8/245/96.3, 04/04/2025: 26.6/9.8/251/95.5, 04/06/2025: 14.5/8.8/278/93.6, 04/08/2025: 15.5/8.9/234/93.6. 04/17/25: 17.4/6.8/3/95.8, 04/18/2025: 20.1/10.5/88/91.3 CMP, 04/04/2025: Unremarkable Chest x-ray, 04/02/2025: Patchy hvoyz-vrglard-utsn-left bibasilar opacities, favoring infection Chest x-ray 04/05/2025: 1. Endotracheal tube 5.8 cm above the vani 2. Right internal jugular catheter in place at the cavoatrial junction. 3. Enteric tube below the left diaphragm less likely in the stomach. 4. IMPROVING airspace disease right lower lobe. Chest x-ray, 04/08/2025: 1. No acute cardiopulmonary disease. 2. Lines and tubes unchanged. Chest x-ray, 04/15/2025: Increased right lower lobe airspace disease CT head, 04/05/2025:1. No evidence of acute intracranial abnormality. 2. Mild subcortical and periventricular low attenuation, nonspecific but most commonly associated with sequelae of chronic microvascular ischemic changes although other etiologies are not excluded. vital signs Vital Sign Date Time Temp Pulse Resp B/P (MAP) Pulse Ox O2 Delivery O2 Flow Rate FiO2 04/20/25 10:00 97.5 92 18 115/72 (86) 96 207.5 04/20/25 09:24 35 04/20/25 08:00 Mechanical Ventilator+ Total Intake and Output 04/19/25 04/19/25 04/20/25 15:00 23:00 07:00 Intake Total 667.813 ml 478.441 ml 585.938 ml Output Total 450 ml 350 ml Balance 667.813 ml 28.441 ml 235.938 ml medications Current Medications Medications Dose Ordered Sig/Guy Route Start Time Stop Time Status Last Admin Dose Admin Nitroglycerin 0.4 mg Q5MINP PRN SL 10/24/25 00:00 Norepinephrine Bitartrate 250 ml @ 3.75 mls/hr Q24H IV 04/03/25 10:00 UNV Fat Emulsion Intravenous 50 ml/ Sodium Chloride 40 meq/Potassium Chloride 20 meq/ Potassium Phosphate 44 meq/ Calcium Gluconate 2.3 meq/Magnesium Sulfate 8 meq/ Multivitamins 10 ml/Chromium/ Copper/Manganese/ Zinc 1 ml/Amino Acids/Dextrose/ Purified Water 1,047.9462 ml @ 44 mls/hr [id number] IV 04/06/25 22:00 04/06/25 22:00 Cancel Sodium Chloride 10 ml QSHIFT@10,22 IV 04/09/25 22:00 04/19/25 21:30 10 ML Fluconazole 100 ml @ 100 mls/hr DAILY IV 04/16/25 10:00 04/19/25 07:38 100 MLS/HR Midazolam HCl 100 ml @ 1 mls/hr Q24H IV 04/15/25 19:00 04/19/25 15:02 1 MLS/HR Fentanyl Citrate 250 ml @ 2.5 mls/hr Q24H IV 04/15/25 19:00 04/19/25 15:02 5 MLS/HR Phenylephrine HCl 250 ml @ 30 mls/hr Q8H20M IV 04/15/25 22:45 04/17/25 03:14 41.25 MLS/HR Vasopressin 20 units/Sodium Chloride 100 ml @ 9 mls/hr Q11H7M IV 04/15/25 22:45 04/18/25 01:51 9 MLS/HR Enoxaparin Sodium 40 mg DAILY SC 04/16/25 10:00 04/16/25 09:45 40 MG Methylprednisolone Sodium Succinate 40 mg Q8HR IV 04/16/25 14:00 04/20/25 05:31 40 MG Vancomycin HCl 0 ml @ 0 mls/hr PER PHARMACY IV 04/16/25 12:15 Ipratropium [place] 0.5 mg Q6HR NEB 04/16/25 18:00 04/20/25 06:04 0.5 MG Levalbuterol HCl 1.25 mg Q6HR NEB 04/16/25 18:00 04/20/25 06:04 1.25 MG Sodium Chloride 1,000 ml @ 50 mls/hr Q20H IV 04/16/25 12:30 04/19/25 21:31 50 MLS/HR Cefepime HCl 50 ml @ 12.5 mls/hr Q12H IV 04/17/25 11:00 04/19/25 23:04 12.5 MLS/HR Vancomycin HCl 100 ml @ 200 mls/hr Q24H IV 04/17/25 10:00 04/19/25 07:40 200 MLS/HR Norepinephrine Bitartrate 250 ml @ 3.75 mls/hr Q24H IV 04/17/25 19:45 04/18/25 20:23 0.938 MLS/HR Enteral Nutritional Formula 1,000 ml 30ML/HR GT 04/18/25 09:15 Famotidine 10 mg Q12HR IV 04/18/25 22:00 04/19/25 21:30 10 MG objective The patient is well-nourished and well-developed with no distress. The patient is intubated MENTAL STATUS: Subjective CRANIAL NERVES: Pupils are round and reactive.There are corneal reflexes and doll's eyes phenomenon. No signs of facial weakness. There are gagging or coughing reflexes and airway care SENSATION: No responses to pain stimuli. MOTOR: Normal tone in the upper and lower extremity. Normal muscle bulk. No fasciculations. No spontaneous movement. REFLEXES: Deep tendon reflexes are symmetrical. No pathological reflexes. CEREBELLAR/COORDINATION: Deferred GAIT/STATION: deferred. laboratory and microbiology Laboratory Tests 04/20/25 02:45 Test 04/20/25 02:45 Range/Units Serum Glucose 127 H 74-106 mg/dL Problem List Altered mental status, Hypoxic encephalopathy Metabolic encephalopathy Toxic encephalopathy Acute on chronic respiratory failure, reintubated on 04/15/2025 Pneumoniae, Leukocytosis/sepsis Anisocoria Etiology unclear Cachexia Assessment/Plan Monitoring Supportive treatment ICU Stabilize vitals/pressor drip Respiratory support/vent management Oxygen IV antibiotics DVT prophylaxis GI prophylaxis More recommendation per clinical course She may need tracheostomy and feeding tube This medical document was created using an electronic medical record system with [employer] system. Although this document has been carefully reviewed, there may still be some phonetic and typographical errors. These areas are purely typographical due to imperfections of the software programs, and do not reflect any compromise in the patient's medical care. Prognosis guarded Dietary Evaluation Review Comments: 1) If patient remains NPO > 7 days, consider EN/TPN to meet at least 75% estimated daily needs 2) If gut is preferred, initiate Vital High Protein @ 40 mL/hr goal rate as tolerated. Flush with 50 mL free H2O Q6H. EN regimen will provide 960 kcals, 84g Pro, and 1003 mL free H2O (including TF flushes) per 24 hrs. Goal rate will meet ~ 95% estimated energy needs and ~ 93% estimated protein needs 3) Advance to cardiac diet when medically feasible, pending ST approval 4) Refer to outpatient RD for weight management 5) Follow-up with cardiology and pulmonology 6) Continue to monitor I&O, labs, and skin integrity Expected Outcomes/Goals: 1) patient to receive nutritional support within 7 days of NPO status 2) labs to improve 3) diet to advance 4) gradual wt gain 5) f/u in 2-3 days Plan discussed with: Other RAMAN LAWTON MD Apr 20, 2025 10:29
--- NOTE | 2025-04-20 12:14 | DVHPNRES ---
Progress Note Date Seen: Apr 20, 2025 Resident Creating Document: CRICKET GUAMAN RESIDENT Medical Necessity Reason Pt with a Central, PICC or Fol: Yes The following are medically ne: Central Line, Chin Catheter Subjective Review of Systems Patient is a 59 year old female with past medical history of CHF, Chronic obstructive pulmonary disease, GERD, hyperlipidemia who presented to hospital with chief complaints of shortness of breath. As per daughter patient had increased work of breathing, uses home oxygen 2 L, which was increased to 6 L at home for which saturation improved to 94%. Patient in the ER became altered and was intubated on 04/03/25. as per daughter echocardiogram showed 50% in [facility]. x-ray showed Stable chronic appearing bilateral interstitial pulmonary markings and mild bibasilar pulmonary airspace disease. Past surgical history: Tonsillectomy family history: reviewed, noncontributory Social history: per daughter patient has smoked since she was 15 years old and nicotine vape, used methamphetamine 04/11/25: Patient seen in ICU. on cpap trial, on pressure support control, pulling 400 ml volume Psupport 10 and Peep 5 mm hg. plan for cpap trial tomorrow. 04/12/25: Patient seen in ICU. CPAP trial failed. NIf -13. we will try again tomorrow. 04/13/25: Patient seen in the ICU. patient was successfully extubated today. We will keep monitoring oxygen saturation, or possible need for BiPAP. Patient's daughter at bedside was explained about patient's condition and prognosis. 04/14/2025: Patient seen at the ICU. Patient was successfully extubated yesterday. Patient is on 2 L oxygen. physical therapy tomorrow. Patient's passed swallow eval and diet was switched to soft mechanical diet. 04/15/25: Patient seen at the ICU. Patient is on 3 L oxygen. Patients diet changed to purred diet. discussion done with Daughter about patients condition and recommended discharge to snf. Consulted SS for SNF placement. Added IV fluconazole, and cefepime. Patient had a bowel movement . 04/16/2025: patient seen in ICU. patient was intubated yesterday due to possible aspiration, atelectasis. patient is on levo 14, [place] 18, Versed 4, fentanyl 100, ventilator settings at FiO2 80%, peep of 5, VT 400, respiratory rate 22. Added vancomycin , methylprednisone. Ordered 2D echo, Patient's condition was discussed with daughter and possible regarding of tracheostomy. 04/17/2025 Patient seen in ICU. Patint is intubated, sedated echo still pending, today patient's hemoglobin dropped from 9.97.7 and platelets also dropped, held Lovenox, stool occult blood ordered. 04/18/2025: Patient seen in ICU. Continued to be on ventilation. Patient was received 1 unit of PRBCs yesterday evening. Has been hold anticoagulation. Patient continued to have bilateral wheezing, continue racing steroids, antibiotics, breathing treatment. Continue monitoring. No any other night complaints. 04/19/2025: Patient seen in ICU, continued on the ventilator, patient today does not have any wheezing, patient is continued on antibiotics, breathing treatment. CPAP trial tomorrow. Discussion done with the daughter regarding tracheostomy Tomorrow. Patient is on vasopressor, sedation. 04/20/25: Patient seen in ICU, on ventilator, patient today is opening her eyes and is following commands. CPAP tomorrow morning. Objective vital signs Vital Sign Date Time Temp Pulse Resp B/P (MAP) Pulse Ox O2 Delivery O2 Flow Rate FiO2 04/20/25 11:13 98 18 138/75 (96) 97 35 04/20/25 11:00 97.3 207.1 04/20/25 10:00 Mechanical Ventilator+ Total Intake and Output 04/19/25 04/19/25 04/20/25 14:59 22:59 06:59 Intake Total 665.938 ml 479.378 ml 586.876 ml Output Total 450 ml 350 ml Balance 665.938 ml 29.378 ml 236.876 ml medications Current Medications Medications Dose Ordered Sig/Guy Route Start Time Stop Time Status Last Admin Dose Admin Nitroglycerin 0.4 mg Q5MINP PRN SL 04/03/25 00:00 Norepinephrine Bitartrate 250 ml @ 3.75 mls/hr Q24H IV 04/03/25 10:00 UNV Fat Emulsion Intravenous 50 ml/ Sodium Chloride 40 meq/Potassium Chloride 20 meq/ Potassium Phosphate 44 meq/ Calcium Gluconate 2.3 meq/Magnesium Sulfate 8 meq/ Multivitamins 10 ml/Chromium/ Copper/Manganese/ Zinc 1 ml/Amino Acids/Dextrose/ Purified Water 1,047.9462 ml @ 44 mls/hr [id number] IV 04/06/25 22:00 04/06/25 22:00 Cancel Sodium Chloride 10 ml QSHIFT@10,22 IV 04/09/25 22:00 04/20/25 10:00 10 ML Fluconazole 100 ml @ 100 mls/hr DAILY IV 04/16/25 10:00 04/20/25 10:52 100 MLS/HR Midazolam HCl 100 ml @ 1 mls/hr Q24H IV 04/15/25 19:00 04/19/25 15:02 1 MLS/HR Fentanyl Citrate 250 ml @ 2.5 mls/hr Q24H IV 04/15/25 19:00 04/19/25 15:02 5 MLS/HR Phenylephrine HCl 250 ml @ 30 mls/hr Q8H20M IV 04/15/25 22:45 04/17/25 03:14 41.25 MLS/HR Vasopressin 20 units/Sodium Chloride 100 ml @ 9 mls/hr Q11H7M IV 04/15/25 22:45 04/18/25 01:51 9 MLS/HR Enoxaparin Sodium 40 mg DAILY SC 04/16/25 10:00 04/16/25 09:45 40 MG Methylprednisolone Sodium Succinate 40 mg Q8HR IV 04/16/25 14:00 04/20/25 05:31 40 MG Vancomycin HCl 0 ml @ 0 mls/hr PER PHARMACY IV 04/16/25 12:15 Ipratropium [place] 0.5 mg Q6HR NEB 04/16/25 18:00 04/20/25 11:13 0.5 MG Levalbuterol HCl 1.25 mg Q6HR NEB 04/16/25 18:00 04/20/25 11:13 1.25 MG Sodium Chloride 1,000 ml @ 50 mls/hr Q20H IV 04/16/25 12:30 04/19/25 21:31 50 MLS/HR Cefepime HCl 50 ml @ 12.5 mls/hr Q12H IV 04/17/25 11:00 04/20/25 12:10 12.5 MLS/HR Norepinephrine Bitartrate 250 ml @ 3.75 mls/hr Q24H IV 04/17/25 19:45 04/18/25 20:23 0.938 MLS/HR Enteral Nutritional Formula 1,000 ml 30ML/HR GT 04/18/25 09:15 Famotidine 10 mg Q12HR IV 04/18/25 22:00 04/20/25 10:53 10 MG Examination General: Intubated, sedated, not opening eyes and not following commands HEENT: Normocephalic, atraumatic, moist mucous membranes Respiratory/pulmonary: diminished breath sounds bilaterally. Cardiovascular: Normal heart sounds S1 and S2 with no associated murmurs Abdomen: Abdomen nondistended, there is no pain to palpation in any of the abdominal quadrants, no palpable masses. Extremities: There is no peripheral edema present at the lower extremities. Peripheral Pulses: 3+ Radial (R). 3+ Radial (L). 3+ Dorsalis pedis (R). 3+ Dorsalis pedis(L) Skin: Multiple skin tears, no sacral wound present, Neurological: Pupils reactive, gag and cough reflex present laboratory and microbiology Laboratory Tests 04/20/25 02:45 Test 04/20/25 02:45 Range/Units Serum Glucose 127 H 74-106 mg/dL Microbiology Date/Time Source Procedure Growth Status 04/15/25 20:17 Sputum Gram Stain - Final Complete 04/15/25 20:17 Sputum Respiratory Culture - Final Complete 04/12/25 22:58 Stool Stool Culture - Final Complete 04/12/25 22:58 Stool Shiga Toxin I & II - Final Complete 04/05/25 08:00 Nose MRSA Screen - Final Complete 04/02/25 20:04 Blood Blood Culture - Final NO GROWTH AFTER 5 DAYS OF INCUBATION. Complete Problem List/Assessment/Plan Problem List/Assessment/Plan Neurology Acute metabolic/hypoxic encephalopathy likely due to COPD exacerbation - Mechanically ventilated, sedated: RASS score -3 - ventilator setting: on AC mode; RR 20,VT 350, Fio2-35%, PEEP-5 - neurology on board Cardiology Chronic diastolic Congestive heart failure - ordered 2D echo, - as per daughter EF of 50% Respiratory Sepsis likely due to below Acute on chronic hypoxic respiratory failure secondary to acute COPD exacerbation/ pneumonia Acute G +/- Bacterial PNA possible atelectasis - continue bronchodilators, - continue Solu-Medrol 40 mg - chest xray: Slight interval advancement of the endotracheal tube such that the tip now projects approximately 3.9 cm above the level of the vani. Remaining lines and tubes unchanged. Stable chronic appearing bilateral interstitial pulmonary markings and mild bibasilar pulmonary airspace disease - IV metronidazole, azithromycin changed to doxycycline, cefepime, micafungin - Fluconazole, cefepime,(04/15), vancomycin(04/16) - respiratory culture -showed for filamentous fungi - Chest CT showed lower lobe consolidation, multiple small foci, severe centrilobar Emphysema. GI/Liver Cachexia BMI 15.3 Severe protein malnutrition Slow transit constipation - Miralax Hematology Anemia of chronic disease Iron deficiency anemia - monitor hemoglobin Renal Electrolytes hyponatremia hypocalcemia hypophosphatemia - replete electrolytes - Monitor electrolytes Lines/tubes/devices Airway: Intubated via ETT on 04/03/25 , extubated on 04/13/25, Re intubated (04/15) Vascular access: Central line Rt IJ 04/05 and Rt femoral 04/03 Drips: Fentanyl, midazolam Diet: DVT prophylaxis: Lovenox(held due to low hemoglobin) GI prophylaxis: famotidine Great discussion taken place with Daughter for 37 mins about patients condition and poor prognosis, and possible Tracheostomy. Goals of car discussed with family for more than 29 minutes : Full code Care plan updated to the Daughter, critical time spent more than 64 minutes excluding procedures Case discussed with Dr. Rothman , RN Plan discussed with: Daughter My Orders My Orders Orders - CRICKET GUAMAN RESIDENT Procedure Category Date Status Time Chest Xray 1 View XY 04/20/25 Resulted 04:00 Abg W/ Co-Ox RT 04/20/25 Logged 04:00 Dietary Evaluation Review Comments: 1) If patient remains NPO > 7 days, consider EN/TPN to meet at least 75% estimated daily needs 2) If gut is preferred, initiate Vital High Protein @ 40 mL/hr goal rate as tolerated. Flush with 50 mL free H2O Q6H. EN regimen will provide 960 kcals, 84g Pro, and 1003 mL free H2O (including TF flushes) per 24 hrs. Goal rate will meet ~ 95% estimated energy needs and ~ 93% estimated protein needs 3) Advance to cardiac diet when medically feasible, pending ST approval 4) Refer to outpatient RD for weight management 5) Follow-up with cardiology and pulmonology 6) Continue to monitor I&O, labs, and skin integrity Expected Outcomes/Goals: 1) patient to receive nutritional support within 7 days of NPO status 2) labs to improve 3) diet to advance 4) gradual wt gain 5) f/u in 2-3 days Date of Service: Apr 20, 2025 Billing Provider: REBECCA BRIGGS MD Common Visit Codes: 28132-[id number] CARE 30-74 MIN CRICKET GUAMAN Apr 20, 2025 12:14 REBECCA BRIGGS MD Apr 21, 2025 14:59
[2025-04-21] VITALS (104 sets, daily range): BP systolic 117–157; BP diastolic 66–100; PULSE 78–139; RESP 14–25; TEMP 96.3–98.4; O2SAT 93–100
[2025-04-21 03:20] LABS: Hematocrit 31.1 % (36.0-46.0); Hemoglobin 10.4 g/dL (12.2-16.2); Mean Corpuscular Hemoglobin 31.5 pg (28.0-32.0); Mean Corpuscular Volume 94.0 fL (80.0-100.0); Nucleated Red Blood Cells % 0.0 %
[2025-04-21 03:29] LABS: Alkaline Phosphatase 85 U/L (46-116); Anion Gap 9 (5-15); BUN/Creatinine Ratio 68.8 (10.0-20.0); Carbon Dioxide 25 mmol/L (20-31); Magnesium 2.1 mg/dL (1.6-2.6); Potassium 3.6 mmol/L (3.5-5.1)
[2025-04-21 03:30] LABS: Bilirubin, Total 0.4 mg/dL (0.2-1.0)
[2025-04-21 03:33] LABS: Alanine Aminotransferase 73 U/L (7-40); Albumin 2.4 g/dL (3.2-4.8); Blood Urea Nitrogen 33 mg/dL (9-23); Calcium 8.2 mg/dL (8.7-10.4); Chloride 113 mmol/L (98-107); Glucose 123 mg/dL (74-106); Sodium 147 mmol/L (136-145); Total Protein 4.0 g/dL (5.7-8.2)
--- NOTE | 2025-04-21 04:39 | DVH ---
CHEST RADIOGRAPH Indication: on vent Technique: Single frontal view of the chest was obtained COMPARISON: XY CHEST XRAY 1 VIEW on DOS: 04/20/25, XY CHEST XRAY 1 VIEW on DOS: 04/19/25, XY CHEST PORTABLE on DOS: 04/18/25, XY CHEST XRAY 1 VIEW on DOS: 04/18/25, XY CHEST XRAY 1 VIEW on DOS: 04/17/25 FINDINGS: Tracheostomy tube tip terminating 4.5 cm above the vani. NG tube at least in the mid stomach. Left-sided PICC line with tip near the cavoatrial junction. Cardiac silhouette is borderline in size. No overt pulmonary edema. Stable trace bilateral pleural effusions with mild bibasilar atelectatic changes. IMPRESSION: Stable findings.
[2025-04-21 07:06] LABS: Base Excess -2.5 mmol/L (-2.0-3.0)
[2025-04-21] MEDS: VANCOMYCIN 750MG KIT 100 ML IV ONE (10:43)
[2025-04-21 10:45] LABS: Base Excess -4.5 mmol/L (-2.0-3.0)
--- NOTE | 2025-04-21 10:55 | DVHPN2 ---
Progress Note - Dictate Date Seen: Apr 21, 2025 Medical Necessity Reason Pt with a Central, PICC or Fol: Yes The following are medically ne: Central Line, Chin Catheter Subjective Ms. Cedeno is a 59 years old female with a history of hypotension, dyslipidemia, congestive heart failure, COPD, GERD, anxiety, she was brought to the [facility] on 03/30/2025 with a chief complaint of shortness breath. She choked when she was eating dinner and reintubated on 04/15/2025 I have seen and examined the patient in the ICU, she is intubated, but is awake, she follows verbal commands, she can move the hands minimally Pupil size: In the morning on 04/05/2025: Equal. Early afternoon: UPON REASSESSMENT, PUPILS WERE UNEQUAL. LEFT PUPIL IS AT 5 AND RIGHT PUPIL AT 3 AND SLUGGISH REACTION TO LIGHT. MD MCPHERSON NOTIFIED AND NEW ORDERS RECEIVED FOR STAT HEAD CT AND NEUROLOGIST CONSULT. 04/06/2025: Rt: 3, Lt: 3-4. 04/07/25: Rt: 2mm, Lt: 3mm 04/08/2025: Rt: 2mm, Lt: 3mm 04/08/2025: Rt: 2mm, Lt: 2mm 04/11/2025: Rt: 2mm, Lt: 4mm 04/12/2025: Rt: 2mm, Lt: 4mm 04/13/2025: Rt: 2mm, Lt: 4mm 04/14/2025: Rt: 2mm, Lt: 4mm 04/16/2025: Pupil size about 2-3 mm, right-sided slightly bigger 04/17/2025: Almost the same size, possibly left side bigger 04/18/2025: Small pupils, with the left-sided slightly bigger 04/19/2025: very small and looks symmetric 04/20/2025: Rt: 2mm, Lt: 2-3mm 04/21/2025: Rt: 2mm, Lt: 4mm Blood culture, 04/02/2025: Negative UDS, 04/02/2025: Negative Plasma alcohol, 04/02/2025: <3 Urinalysis, 04/02/2025: WBC: 1, urine leukocyte esterase: Negative ABG, 04/05/2025: Carbon dioxide retention WBC/HB/PLT/MCV, 04/02/2025: 22.5/9.7/236/95.6, 04/03/2025: 71.9/10.8/245/96.3, 04/04/2025: 26.6/9.8/251/95.5, 04/06/2025: 14.5/8.8/278/93.6, 04/08/2025: 15.5/8.9/234/93.6. 04/17/25: 17.4/6.8/3/95.8, 04/18/2025: 20.1/10.5/88/91.3 CMP, 04/04/2025: Unremarkable Chest x-ray, 04/02/2025: Patchy cjrai-pdzrxzw-eezl-left bibasilar opacities, favoring infection Chest x-ray 04/05/2025: 1. Endotracheal tube 5.8 cm above the vani 2. Right internal jugular catheter in place at the cavoatrial junction. 3. Enteric tube below the left diaphragm less likely in the stomach. 4. IMPROVING airspace disease right lower lobe. Chest x-ray, 04/08/2025: 1. No acute cardiopulmonary disease. 2. Lines and tubes unchanged. Chest x-ray, 04/15/2025: Increased right lower lobe airspace disease CT head, 04/05/2025:1. No evidence of acute intracranial abnormality. 2. Mild subcortical and periventricular low attenuation, nonspecific but most commonly associated with sequelae of chronic microvascular ischemic changes although other etiologies are not excluded. vital signs Vital Sign Date Time Temp Pulse Resp B/P (MAP) Pulse Ox O2 Delivery O2 Flow Rate FiO2 04/21/25 10:10 109 16 140/89 (106) 96 35 04/21/25 06:00 Mechanical Ventilator+ 04/21/25 04:00 96.8 96.8 Total Intake and Output 04/20/25 04/20/25 04/21/25 15:00 23:00 07:00 Intake Total 837.5 ml 27.5 ml 255 ml Output Total 100 ml 150 ml Balance 837.5 ml -72.5 ml 105 ml medications Current Medications Medications Dose Ordered Sig/Guy Route Start Time Stop Time Status Last Admin Dose Admin Nitroglycerin 0.4 mg Q5MINP PRN SL 04/03/25 00:00 Norepinephrine Bitartrate 250 ml @ 3.75 mls/hr Q24H IV 04/03/25 10:00 UNV Fat Emulsion Intravenous 50 ml/ Sodium Chloride 40 meq/Potassium Chloride 20 meq/ Potassium Phosphate 44 meq/ Calcium Gluconate 2.3 meq/Magnesium Sulfate 8 meq/ Multivitamins 10 ml/Chromium/ Copper/Manganese/ Zinc 1 ml/Amino Acids/Dextrose/ Purified Water 1,047.9462 ml @ 44 mls/hr [id number] IV 04/06/25 22:00 04/06/25 22:00 Cancel Sodium Chloride 10 ml QSHIFT@10,22 IV 04/09/25 22:00 04/21/25 10:00 10 ML Fluconazole 100 ml @ 100 mls/hr DAILY IV 04/16/25 10:00 04/20/25 10:52 100 MLS/HR Midazolam HCl 100 ml @ 1 mls/hr Q24H IV 04/15/25 19:00 04/20/25 19:54 1 MLS/HR Fentanyl Citrate 250 ml @ 2.5 mls/hr Q24H IV 04/15/25 19:00 04/19/25 15:02 5 MLS/HR Vasopressin 20 units/Sodium Chloride 100 ml @ 9 mls/hr Q11H7M IV 04/15/25 22:45 04/18/25 01:51 9 MLS/HR Enoxaparin Sodium 40 mg DAILY SC 04/16/25 10:00 04/16/25 09:45 40 MG Methylprednisolone Sodium Succinate 40 mg Q8HR IV 04/16/25 14:00 04/21/25 05:31 40 MG Vancomycin HCl 0 ml @ 0 mls/hr PER PHARMACY IV 04/16/25 12:15 Ipratropium [place] 0.5 mg Q6HR NEB 04/16/25 18:00 04/21/25 06:16 0.5 MG Levalbuterol HCl 1.25 mg Q6HR NEB 04/16/25 18:00 04/21/25 06:16 1.25 MG Cefepime HCl 50 ml @ 12.5 mls/hr Q12H IV 04/17/25 11:00 04/20/25 22:01 12.5 MLS/HR Norepinephrine Bitartrate 250 ml @ 3.75 mls/hr Q24H IV 04/17/25 19:45 04/18/25 20:23 0.938 MLS/HR Enteral Nutritional Formula 1,000 ml 30ML/HR GT 04/18/25 09:15 Famotidine 10 mg Q12HR IV 04/18/25 22:00 04/21/25 10:37 10 MG objective The patient is well-nourished and well-developed with no distress. The patient is intubated MENTAL STATUS: Subjective CRANIAL NERVES: Pupils are round and reactive.There conjugated eye movement. No signs of facial weakness. There are gagging or coughing reflexes during oral in the airway care SENSATION: Responses to pain stimuli. MOTOR: Normal tone in the upper and lower extremity. Normal muscle bulk. No fasciculations. Moves the hands slightly REFLEXES: Deep tendon reflexes are symmetrical. No pathological reflexes. CEREBELLAR/COORDINATION: Deferred GAIT/STATION: deferred. laboratory and microbiology Laboratory Tests 04/21/25 02:50 Test 04/21/25 02:50 Range/Units Serum Glucose 123 H 74-106 mg/dL Problem List Altered mental status, Hypoxic encephalopathy Metabolic encephalopathy Toxic encephalopathy Acute on chronic respiratory failure, reintubated on 04/15/2025 Pneumoniae, Leukocytosis/sepsis Anisocoria Etiology unclear Cachexia Assessment/Plan Monitoring Supportive treatment ICU Stabilize vitals/pressor drip Respiratory support/vent management Oxygen IV antibiotics DVT prophylaxis GI prophylaxis More recommendation per clinical course She may need tracheostomy and feeding tube This medical document was created using an electronic medical record system with [employer] dictation system. Although this document has been carefully reviewed, there may still be some phonetic and typographical errors. These areas are purely typographical due to imperfections of the software programs, and do not reflect any compromise in the patient's medical care. Prognosis Guarded Dietary Evaluation Review Comments: 1) If patient remains NPO > 7 days, consider EN/TPN to meet at least 75% estimated daily needs 2) If gut is preferred, initiate Vital High Protein @ 40 mL/hr goal rate as tolerated. Flush with 50 mL free H2O Q6H. EN regimen will provide 960 kcals, 84g Pro, and 1003 mL free H2O (including TF flushes) per 24 hrs. Goal rate will meet ~ 95% estimated energy needs and ~ 93% estimated protein needs 3) Advance to cardiac diet when medically feasible, pending ST approval 4) Refer to outpatient RD for weight management 5) Follow-up with cardiology and pulmonology 6) Continue to monitor I&O, labs, and skin integrity Expected Outcomes/Goals: 1) patient to receive nutritional support within 7 days of NPO status 2) labs to improve 3) diet to advance 4) gradual wt gain 5) f/u in 2-3 days Plan discussed with: Other RAMAN LAWTON MD Apr 21, 2025 10:54
--- NOTE | 2025-04-21 16:29 | DVHPNRES ---
Progress Note Date Seen: Apr 21, 2025 Resident Creating Document: CRICKET GUAMAN RESIDENT Medical Necessity Reason Pt with a Central, PICC or Fol: Yes The following are medically ne: Central Line, Chin Catheter Subjective Review of Systems Patient is a 59 year old female with past medical history of CHF, Chronic obstructive pulmonary disease, GERD, hyperlipidemia who presented to hospital with chief complaints of shortness of breath. As per daughter patient had increased work of breathing, uses home oxygen 2 L, which was increased to 6 L at home for which saturation improved to 94%. Patient in the ER became altered and was intubated on 04/03/25. as per daughter echocardiogram showed 50% in [facility]. x-ray showed Stable chronic appearing bilateral interstitial pulmonary markings and mild bibasilar pulmonary airspace disease. Past surgical history: Tonsillectomy family history: reviewed, noncontributory Social history: per daughter patient has smoked since she was 15 years old and nicotine vape, used methamphetamine 04/11/25: Patient seen in ICU. on cpap trial, on pressure support control, pulling 400 ml volume Psupport 10 and Peep 5 mm hg. plan for cpap trial tomorrow. 04/12/25: Patient seen in ICU. CPAP trial failed. NIf -13. we will try again tomorrow. 04/13/25: Patient seen in the ICU. patient was successfully extubated today. We will keep monitoring oxygen saturation, or possible need for BiPAP. Patient's daughter at bedside was explained about patient's condition and prognosis. 04/14/2025: Patient seen at the ICU. Patient was successfully extubated yesterday. Patient is on 2 L oxygen. physical therapy tomorrow. Patient's passed swallow eval and diet was switched to soft mechanical diet. 04/15/25: Patient seen at the ICU. Patient is on 3 L oxygen. Patients diet changed to purred diet. discussion done with Daughter about patients condition and recommended discharge to snf. Consulted SS for SNF placement. Added IV fluconazole, and cefepime. Patient had a bowel movement . 04/16/2025: patient seen in ICU. patient was intubated yesterday due to possible aspiration, atelectasis. patient is on levo 14, [place] 18, Versed 4, fentanyl 100, ventilator settings at FiO2 80%, peep of 5, VT 400, respiratory rate 22. Added vancomycin , methylprednisone. Ordered 2D echo, Patient's condition was discussed with daughter and possible regarding of tracheostomy. 04/17/2025 Patient seen in ICU. Patint is intubated, sedated echo still pending, today patient's hemoglobin dropped from 9.97.7 and platelets also dropped, held Lovenox, stool occult blood ordered. 04/18/2025: Patient seen in ICU. Continued to be on ventilation. Patient was received 1 unit of PRBCs yesterday evening. Has been hold anticoagulation. Patient continued to have bilateral wheezing, continue racing steroids, antibiotics, breathing treatment. Continue monitoring. No any other night complaints. 04/19/2025: Patient seen in ICU, continued on the ventilator, patient today does not have any wheezing, patient is continued on antibiotics, breathing treatment. CPAP trial tomorrow. Discussion done with the daughter regarding tracheostomy Tomorrow. Patient is on vasopressor, sedation. 04/20/25: Patient seen in ICU, on ventilator, patient today is opening her eyes and is following commands. CPAP tomorrow morning. 04/21/2025: Patient seen in ICU, on ventilator, off pressors, sedation,. Patient is opening her eyes, following commands. CPAP trial tomorrow morning. Possible tracheostomy to be done. Objective vital signs Vital Sign Date Time Temp Pulse Resp B/P (MAP) Pulse Ox O2 Delivery O2 Flow Rate FiO2 04/21/25 16:06 119 21 149/90 (109) 96 35 04/21/25 14:00 Mechanical Ventilator+ 04/21/25 12:00 97.3 97.3 Total Intake and Output 04/20/25 04/20/25 04/21/25 15:00 23:00 07:00 Intake Total 837.5 ml 27.5 ml 255 ml Output Total 100 ml 150 ml Balance 837.5 ml -72.5 ml 105 ml medications Current Medications Medications Dose Ordered Sig/Guy Route Start Time Stop Time Status Last Admin Dose Admin Nitroglycerin 0.4 mg Q5MINP PRN SL 04/03/25 00:00 Norepinephrine Bitartrate 250 ml @ 3.75 mls/hr Q24H IV 04/03/25 10:00 UNV Fat Emulsion Intravenous 50 ml/ Sodium Chloride 40 meq/Potassium Chloride 20 meq/ Potassium Phosphate 44 meq/ Calcium Gluconate 2.3 meq/Magnesium Sulfate 8 meq/ Multivitamins 10 ml/Chromium/ Copper/Manganese/ Zinc 1 ml/Amino Acids/Dextrose/ Purified Water 1,047.9462 ml @ 44 mls/hr [id number] IV 04/06/25 22:00 04/06/25 22:00 Cancel Sodium Chloride 10 ml QSHIFT@10,22 IV 04/09/25 22:00 04/21/25 10:00 10 ML Fluconazole 100 ml @ 100 mls/hr DAILY IV 04/16/25 10:00 04/21/25 12:15 100 MLS/HR Midazolam HCl 100 ml @ 1 mls/hr Q24H IV 04/15/25 19:00 04/20/25 19:54 1 MLS/HR Fentanyl Citrate 250 ml @ 2.5 mls/hr Q24H IV 04/15/25 19:00 04/19/25 15:02 5 MLS/HR Vasopressin 20 units/Sodium Chloride 100 ml @ 9 mls/hr Q11H7M IV 04/15/25 22:45 04/18/25 01:51 9 MLS/HR Enoxaparin Sodium 40 mg DAILY SC 04/16/25 10:00 04/16/25 09:45 40 MG Vancomycin HCl 0 ml @ 0 mls/hr PER PHARMACY IV 04/16/25 12:15 Ipratropium [place] 0.5 mg Q6HR NEB 04/16/25 18:00 04/21/25 12:06 0.5 MG Levalbuterol HCl 1.25 mg Q6HR NEB 04/16/25 18:00 04/21/25 12:06 1.25 MG Cefepime HCl 50 ml @ 12.5 mls/hr Q12H IV 04/17/25 11:00 04/21/25 11:00 12.5 MLS/HR Norepinephrine Bitartrate 250 ml @ 3.75 mls/hr Q24H IV 04/17/25 19:45 04/18/25 20:23 0.938 MLS/HR Enteral Nutritional Formula 1,000 ml 30ML/HR GT 04/18/25 09:15 Famotidine 10 mg Q12HR IV 04/18/25 22:00 04/21/25 10:37 10 MG Methylprednisolone Sodium Succinate 40 mg BID IV 04/21/25 22:00 Examination General: Intubated, sedated, not opening eyes and not following commands HEENT: Normocephalic, atraumatic, moist mucous membranes Respiratory/pulmonary: diminished breath sounds bilaterally. Cardiovascular: Normal heart sounds S1 and S2 with no associated murmurs Abdomen: Abdomen nondistended, there is no pain to palpation in any of the abdominal quadrants, no palpable masses. Extremities: There is no peripheral edema present at the lower extremities. Peripheral Pulses: 3+ Radial (R). 3+ Radial (L). 3+ Dorsalis pedis (R). 3+ Dorsalis pedis(L) Skin: Multiple skin tears, no sacral wound present, Neurological: Pupils reactive, gag and cough reflex present laboratory and microbiology Laboratory Tests 04/21/25 02:50 Test 04/21/25 02:50 Range/Units Serum Glucose 123 H 74-106 mg/dL Microbiology Date/Time Source Procedure Growth Status 04/15/25 20:17 Sputum Gram Stain - Final Complete 04/15/25 20:17 Sputum Respiratory Culture - Final Complete 04/12/25 22:58 Stool Stool Culture - Final Complete 04/12/25 22:58 Stool Shiga Toxin I & II - Final Complete 04/05/25 08:00 Nose MRSA Screen - Final Complete 04/02/25 20:04 Blood Blood Culture - Final NO GROWTH AFTER 5 DAYS OF INCUBATION. Complete Problem List/Assessment/Plan Problem List/Assessment/Plan Neurology Acute metabolic/hypoxic encephalopathy likely due to COPD exacerbation - Mechanically ventilated, sedated: RASS score -3 - ventilator setting: on AC mode; RR 20,VT 350, Fio2-35%, PEEP-5 - neurology on board Cardiology Chronic diastolic Congestive heart failure - ordered 2D echo, -EF of 35% Respiratory Sepsis likely due to below Acute on chronic hypoxic respiratory failure secondary to acute COPD exacerbation/ pneumonia Acute G +/- Bacterial PNA possible atelectasis - continue bronchodilators, - continue Solu-Medrol 40 mg - chest xray: Slight interval advancement of the endotracheal tube such that the tip now projects approximately 3.9 cm above the level of the vani. Remaining lines and tubes unchanged. Stable chronic appearing bilateral interstitial pulmonary markings and mild bibasilar pulmonary airspace disease - IV metronidazole, azithromycin changed to doxycycline, cefepime, micafungin - Fluconazole, cefepime,(04/15), vancomycin(04/16) - respiratory culture -showed for filamentous fungi - Chest CT showed lower lobe consolidation, multiple small foci, severe centrilobar Emphysema. GI/Liver Cachexia BMI 15.3 Severe protein malnutrition Slow transit constipation - Miralax Hematology Anemia of chronic disease Iron deficiency anemia - monitor hemoglobin Renal Electrolytes hyponatremia hypocalcemia hypophosphatemia - replete electrolytes - Monitor electrolytes Lines/tubes/devices Airway: Intubated via ETT on 04/03/25 , extubated on 04/13/25, Re intubated (04/15) Vascular access: Central line Rt IJ 04/05 and Rt femoral 04/03 Drips: Fentanyl, midazolam Diet: DVT prophylaxis: Lovenox(held due to low hemoglobin) GI prophylaxis: famotidine Great discussion taken place with Daughter for 37 mins about patients condition and poor prognosis, and possible Tracheostomy. Goals of car discussed with family for more than 29 minutes : Full code Care plan updated to the Daughter, critical time spent more than 64 minutes excluding procedures Case discussed with Dr. Rothman , RN Plan discussed with: Daughter My Orders My Orders Orders - CRICKET GUAMAN RESIDENT Procedure Category Date Status Time Chest Xray 1 View XY 04/21/25 Resulted 04:00 Abg W/ Co-Ox RT 04/21/25 Logged 07:04 Abg W/ Co-Ox RT 04/21/25 Logged 10:15 Dietary Evaluation Review Comments: 1) If patient remains NPO > 7 days, consider EN/TPN to meet at least 75% estimated daily needs 2) If gut is preferred, initiate Vital High Protein @ 40 mL/hr goal rate as tolerated. Flush with 50 mL free H2O Q6H. EN regimen will provide 960 kcals, 84g Pro, and 1003 mL free H2O (including TF flushes) per 24 hrs. Goal rate will meet ~ 95% estimated energy needs and ~ 93% estimated protein needs 3) Advance to cardiac diet when medically feasible, pending ST approval 4) Refer to outpatient RD for weight management 5) Follow-up with cardiology and pulmonology 6) Continue to monitor I&O, labs, and skin integrity Expected Outcomes/Goals: 1) patient to receive nutritional support within 7 days of NPO status 2) labs to improve 3) diet to advance 4) gradual wt gain 5) f/u in 2-3 days Date of Service: Apr 21, 2025 Billing Provider: REBECCA BRIGGS MD Common Visit Codes: 21825-[id number] CARE 30-74 MIN CRICKET GUAMAN Apr 21, 2025 16:29 REBECCA BRIGGS MD Apr 22, 2025 15:14
[2025-04-21] MEDS: methylPREDNISolone SOD SUCC 40 MG/ML VL IV SCH (22:52)
[2025-04-21] MEDS: DEXMEDETOMIDINE HCL IN D5W 100 ML IV SCH (23:07)
[2025-04-22] VITALS (103 sets, daily range): BP systolic 101–162; BP diastolic 60–100; PULSE 87–135; RESP 15–23; TEMP 97.3–99.9; O2SAT 91–100
[2025-04-22 03:40] LABS: Hemoglobin 10.3 g/dL (12.2-16.2)
[2025-04-22 03:42] LABS: Hematocrit 31.0 % (36.0-46.0); Mean Corpuscular Hemoglobin 31.3 pg (28.0-32.0); Mean Corpuscular Volume 94.2 fL (80.0-100.0); Nucleated Red Blood Cells % 0.1 %
[2025-04-22 03:56] LABS: Alkaline Phosphatase 99 U/L (46-116); Anion Gap 10 (5-15); BUN/Creatinine Ratio 55.0 (10.0-20.0); Bilirubin, Total 0.6 mg/dL (0.2-1.0); Carbon Dioxide 25 mmol/L (20-31); Glucose 104 mg/dL (74-106); Magnesium 2.0 mg/dL (1.6-2.6); Potassium 4.0 mmol/L (3.5-5.1)
[2025-04-22 04:04] LABS: Alanine Aminotransferase 56 U/L (7-40); Albumin 2.3 g/dL (3.2-4.8); Blood Urea Nitrogen 33 mg/dL (9-23); Calcium 8.1 mg/dL (8.7-10.4); Chloride 114 mmol/L (98-107); Sodium 149 mmol/L (136-145); Total Protein 4.0 g/dL (5.7-8.2)
--- NOTE | 2025-04-22 05:02 | DVH ---
CHEST RADIOGRAPH Indication: on vent Technique: Single frontal view of the chest was obtained COMPARISON: XY CHEST XRAY 1 VIEW on DOS: 04/21/25, XY CHEST XRAY 1 VIEW on DOS: 04/20/25, XY CHEST XRAY 1 VIEW on DOS: 04/19/25, XY CHEST PORTABLE on DOS: 04/18/25, XY CHEST XRAY 1 VIEW on DOS: 04/18/25 FINDINGS: Lines and Tubes: Enteric catheter and left PICC in satisfactory position. Lungs: Lungs are hyperinflated suggestive of COPD. Bibasilar subsegmental atelectasis. Pleura: Possible small bilateral pleural effusions. No pneumothorax. Cardiomediastinal contours: Unremarkable Bones: Unremarkable IMPRESSION: Possible small bilateral pleural effusions.
[2025-04-22 06:31] LABS: Base Excess -1.8 mmol/L (-2.0-3.0)
[2025-04-22] MEDS: VANCOMYCIN 750MG KIT 100 ML IV ONE (10:21)
--- NOTE | 2025-04-22 10:26 | DVHPN2 ---
Progress Note - Dictate Date Seen: Apr 22, 2025 Medical Necessity Reason Pt with a Central, PICC or Fol: Yes The following are medically ne: Central Line, Chin Catheter Subjective Ms. Cedeno is a 59 years old female with a history of hypotension, dyslipidemia, congestive heart failure, COPD, GERD, anxiety, she was brought to the [facility] on 03/30/2025 with a chief complaint of shortness breath. She choked when she was eating dinner and reintubated on 04/15/2025 I have seen and examined the patient in the ICU, she is intubated, but is awake, she follows verbal commands, she can move the hands minimally. She is on CPAP, with elevated blood pressure, and heart rate Pupil size: In the morning on 04/05/2025: Equal. Early afternoon: UPON REASSESSMENT, PUPILS WERE UNEQUAL. LEFT PUPIL IS AT 5 AND RIGHT PUPIL AT 3 AND SLUGGISH REACTION TO LIGHT. MD MCPHERSON NOTIFIED AND NEW ORDERS RECEIVED FOR STAT HEAD CT AND NEUROLOGIST CONSULT. 04/06/2025: Rt: 3, Lt: 3-4. 04/07/25: Rt: 2mm, Lt: 3mm 04/08/2025: Rt: 2mm, Lt: 3mm 04/08/2025: Rt: 2mm, Lt: 2mm 04/11/2025: Rt: 2mm, Lt: 4mm 04/12/2025: Rt: 2mm, Lt: 4mm 04/13/2025: Rt: 2mm, Lt: 4mm 04/14/2025: Rt: 2mm, Lt: 4mm 04/16/2025: Pupil size about 2-3 mm, right-sided slightly bigger 04/17/2025: Almost the same size, possibly left side bigger 04/18/2025: Small pupils, with the left-sided slightly bigger 04/19/2025: very small and looks symmetric 04/20/2025: Rt: 2mm, Lt: 2-3mm 04/21/2025: Rt: 2mm, Lt: 4mm 04/22/2025: Rt: 2mm, Lt: 4mm Blood culture, 04/02/2025: Negative UDS, 04/02/2025: Negative Plasma alcohol, 04/02/2025: <3 Urinalysis, 04/02/2025: WBC: 1, urine leukocyte esterase: Negative ABG, 04/05/2025: Carbon dioxide retention WBC/HB/PLT/MCV, 04/02/2025: 22.5/9.7/236/95.6, 04/03/2025: 71.9/10.8/245/96.3, 04/04/2025: 26.6/9.8/251/95.5, 04/06/2025: 14.5/8.8/278/93.6, 04/08/2025: 15.5/8.9/234/93.6. 04/17/25: 17.4/6.8/3/95.8, 04/18/2025: 20.1/10.5/88/91.3 CMP, 04/04/2025: Unremarkable Chest x-ray, 04/02/2025: Patchy [id number]-[id number]-left bibasilar opacities, favoring infection Chest x-ray 04/05/2025: 1. Endotracheal tube 5.8 cm above the vani 2. Right internal jugular catheter in place at the cavoatrial junction. 3. Enteric tube below the left diaphragm less likely in the stomach. 4. IMPROVING airspace disease right lower lobe. Chest x-ray, 04/08/2025: 1. No acute cardiopulmonary disease. 2. Lines and tubes unchanged. Chest x-ray, 04/15/2025: Increased right lower lobe airspace disease CT head, 04/05/2025:1. No evidence of acute intracranial abnormality. 2. Mild subcortical and periventricular low attenuation, nonspecific but most commonly associated with sequelae of chronic microvascular ischemic changes although other etiologies are not excluded. vital signs Vital Sign Date Time Temp Pulse Resp B/P (MAP) Pulse Ox O2 Delivery O2 Flow Rate FiO2 04/22/25 09:16 112 19 151/86 (107) 95 35 04/22/25 06:00 Mechanical Ventilator+ 04/22/25 03:30 97.3 207.1 Total Intake and Output 04/21/25 04/21/25 04/22/25 15:00 23:00 07:00 Intake Total 150.0 ml 199.735 ml Output Total 250 ml 350 ml Balance 150.0 ml -250 ml -150.265 ml medications Current Medications Medications Dose Ordered Sig/Guy Route Start Time Stop Time Status Last Admin Dose Admin Norepinephrine Bitartrate 250 ml @ 3.75 mls/hr Q24H IV 04/03/25 10:00 UNV Fat Emulsion Intravenous 50 ml/ Sodium Chloride 40 meq/Potassium Chloride 20 meq/ Potassium Phosphate 44 meq/ Calcium Gluconate 2.3 meq/Magnesium Sulfate 8 meq/ Multivitamins 10 ml/Chromium/ Copper/Manganese/ Zinc 1 ml/Amino Acids/Dextrose/ Purified Water 1,047.9462 ml @ 44 mls/hr [id number] IV 04/06/25 22:00 04/06/25 22:00 Cancel Sodium Chloride 10 ml QSHIFT@10,22 IV 04/09/25 22:00 04/22/25 09:35 10 ML Fluconazole 100 ml @ 100 mls/hr DAILY IV 04/16/25 10:00 04/22/25 09:28 100 MLS/HR Vancomycin HCl 0 ml @ 0 mls/hr PER PHARMACY IV 04/16/25 12:15 Ipratropium [place] 0.5 mg Q6HR NEB 04/16/25 18:00 04/22/25 05:50 0.5 MG Levalbuterol HCl 1.25 mg Q6HR NEB 04/16/25 18:00 04/22/25 05:50 1.25 MG Cefepime HCl 50 ml @ 12.5 mls/hr Q12H IV 04/17/25 11:00 04/21/25 22:53 12.5 MLS/HR Enteral Nutritional Formula 1,000 ml 30ML/HR GT 04/18/25 09:15 Famotidine 10 mg Q12HR IV 04/18/25 22:00 04/22/25 09:31 10 MG Methylprednisolone Sodium Succinate 40 mg BID IV 04/21/25 22:00 04/22/25 09:31 40 MG objective The patient is well-nourished and well-developed with no distress. The patient is intubated MENTAL STATUS: Subjective CRANIAL NERVES: Pupils are round and reactive.There conjugated eye movement. No signs of facial weakness. There are gagging or coughing reflexes during oral in the airway care SENSATION: Responses to pain stimuli. MOTOR: Normal tone in the upper and lower extremity. Normal muscle bulk. No fasciculations. Moves the hands slightly REFLEXES: Deep tendon reflexes are symmetrical. No pathological reflexes. CEREBELLAR/COORDINATION: Deferred GAIT/STATION: deferred. laboratory and microbiology Laboratory Tests 04/22/25 03:30 Test 04/22/25 03:30 Range/Units Serum Glucose 104 74-106 mg/dL Problem List Altered mental status, Hypoxic encephalopathy Metabolic encephalopathy Toxic encephalopathy Acute on chronic respiratory failure, reintubated on 04/15/2025 Pneumoniae, Leukocytosis/sepsis Anisocoria Etiology unclear Cachexia Assessment/Plan Monitoring Supportive treatment ICU Stabilize vitals/pressor drip Respiratory support/vent management Oxygen IV antibiotics DVT prophylaxis GI prophylaxis More recommendation per clinical course She may need tracheostomy and feeding tube This medical document was created using an electronic medical record system with Smile dictation system. Although this document has been carefully reviewed, there may still be some phonetic and typographical errors. These areas are purely typographical due to imperfections of the software programs, and do not reflect any compromise in the patient's medical care. Prognosis guarded Dietary Evaluation Review Comments: 1) If patient remains NPO > 7 days, consider EN/TPN to meet at least 75% estimated daily needs 2) If gut is preferred, initiate Vital High Protein @ 40 mL/hr goal rate as tolerated. Flush with 50 mL free H2O Q6H. EN regimen will provide 960 kcals, 84g Pro, and 1003 mL free H2O (including TF flushes) per 24 hrs. Goal rate will meet ~ 95% estimated energy needs and ~ 93% estimated protein needs 3) Advance to cardiac diet when medically feasible, pending ST approval 4) Refer to outpatient RD for weight management 5) Follow-up with cardiology and pulmonology 6) Continue to monitor I&O, labs, and skin integrity Expected Outcomes/Goals: 1) patient to receive nutritional support within 7 days of NPO status 2) labs to improve 3) diet to advance 4) gradual wt gain 5) f/u in 2-3 days Plan discussed with: Other RAMAN LAWTON MD Apr 22, 2025 10:26
[2025-04-22] MEDS: fentaNYL Drip 2500mCg/250mlNS 250 ML IV SCH (15:45)
[2025-04-22] MEDS: MIDAZOLAM DRIP 100 mg/100mL NS 100 ML IV SCH (15:45)
--- NOTE | 2025-04-22 17:17 | DVHPNRES ---
Progress Note Date Seen: Apr 22, 2025 Resident Creating Document: CRICKET GUAMAN RESIDENT Medical Necessity Reason Pt with a Central, PICC or Fol: Yes The following are medically ne: Central Line, Chin Catheter Subjective Review of Systems Patient is a 59 year old female with past medical history of CHF, Chronic obstructive pulmonary disease, GERD, hyperlipidemia who presented to hospital with chief complaints of shortness of breath. As per daughter patient had increased work of breathing, uses home oxygen 2 L, which was increased to 6 L at home for which saturation improved to 94%. Patient in the ER became altered and was intubated on 04/03/25. as per daughter echocardiogram showed 50% in [facility]. x-ray showed Stable chronic appearing bilateral interstitial pulmonary markings and mild bibasilar pulmonary airspace disease. Past surgical history: Tonsillectomy family history: reviewed, noncontributory Social history: per daughter patient has smoked since she was 15 years old and nicotine vape, used methamphetamine 04/11/25: Patient seen in ICU. on cpap trial, on pressure support control, pulling 400 ml volume Psupport 10 and Peep 5 mm hg. plan for cpap trial tomorrow. 04/12/25: Patient seen in ICU. CPAP trial failed. NIf -13. we will try again tomorrow. 04/13/25: Patient seen in the ICU. patient was successfully extubated today. We will keep monitoring oxygen saturation, or possible need for BiPAP. Patient's daughter at bedside was explained about patient's condition and prognosis. 04/14/2025: Patient seen at the ICU. Patient was successfully extubated yesterday. Patient is on 2 L oxygen. physical therapy tomorrow. Patient's passed swallow eval and diet was switched to soft mechanical diet. 04/15/25: Patient seen at the ICU. Patient is on 3 L oxygen. Patients diet changed to purred diet. discussion done with Daughter about patients condition and recommended discharge to snf. Consulted SS for SNF placement. Added IV fluconazole, and cefepime. Patient had a bowel movement . 04/16/2025: patient seen in ICU. patient was intubated yesterday due to possible aspiration, atelectasis. patient is on levo 14, [place] 18, Versed 4, fentanyl 100, ventilator settings at FiO2 80%, peep of 5, VT 400, respiratory rate 22. Added vancomycin , methylprednisone. Ordered 2D echo, Patient's condition was discussed with daughter and possible regarding of tracheostomy. 04/17/2025 Patient seen in ICU. Patint is intubated, sedated echo still pending, today patient's hemoglobin dropped from 9.97.7 and platelets also dropped, held Lovenox, stool occult blood ordered. 04/18/2025: Patient seen in ICU. Continued to be on ventilation. Patient was received 1 unit of PRBCs yesterday evening. Has been hold anticoagulation. Patient continued to have bilateral wheezing, continue racing steroids, antibiotics, breathing treatment. Continue monitoring. No any other night complaints. 04/19/2025: Patient seen in ICU, continued on the ventilator, patient today does not have any wheezing, patient is continued on antibiotics, breathing treatment. CPAP trial tomorrow. Discussion done with the daughter regarding tracheostomy Tomorrow. Patient is on vasopressor, sedation. 04/20/25: Patient seen in ICU, on ventilator, patient today is opening her eyes and is following commands. CPAP tomorrow morning. 04/21/2025: Patient seen in ICU, on ventilator, off pressors, sedation,. Patient is opening her eyes, following commands. CPAP trial tomorrow morning. Possible tracheostomy to be done. 04/22/2025: Patient seen in ICU, of pressors, of sedation, patient is on ventilator,. CPAP shock done today, planning for tracheostomy. Objective vital signs Vital Sign Date Time Temp Pulse Resp B/P (MAP) Pulse Ox O2 Delivery O2 Flow Rate FiO2 04/22/25 17:00 115 19 133/81 (98) 95 04/22/25 16:00 35 04/22/25 16:00 99.1 99.1 04/22/25 16:00 Mechanical Ventilator+ Total Intake and Output 04/21/25 04/21/25 04/22/25 15:00 23:00 07:00 Intake Total 150.0 ml 199.735 ml Output Total 250 ml 350 ml Balance 150.0 ml -250 ml -150.265 ml medications Current Medications Medications Dose Ordered Sig/Guy Route Start Time Stop Time Status Last Admin Dose Admin Norepinephrine Bitartrate 250 ml @ 3.75 mls/hr Q24H IV 04/03/25 10:00 UNV Fat Emulsion Intravenous 50 ml/ Sodium Chloride 40 meq/Potassium Chloride 20 meq/ Potassium Phosphate 44 meq/ Calcium Gluconate 2.3 meq/Magnesium Sulfate 8 meq/ Multivitamins 10 ml/Chromium/ Copper/Manganese/ Zinc 1 ml/Amino Acids/Dextrose/ Purified Water 1,047.9462 ml @ 44 mls/hr [id number] IV 04/06/25 22:00 04/06/25 22:00 Cancel Sodium Chloride 10 ml QSHIFT@10,22 IV 04/09/25 22:00 04/22/25 09:35 10 ML Fluconazole 100 ml @ 100 mls/hr DAILY IV 04/16/25 10:00 04/22/25 09:28 100 MLS/HR Vancomycin HCl 0 ml @ 0 mls/hr PER PHARMACY IV 04/16/25 12:15 Ipratropium [place] 0.5 mg Q6HR NEB 04/16/25 18:00 04/22/25 11:03 0.5 MG Levalbuterol HCl 1.25 mg Q6HR NEB 04/16/25 18:00 04/22/25 11:03 1.25 MG Cefepime HCl 50 ml @ 12.5 mls/hr Q12H IV 04/17/25 11:00 04/22/25 11:13 12.5 MLS/HR Enteral Nutritional Formula 1,000 ml 30ML/HR GT 04/18/25 09:15 Methylprednisolone Sodium Succinate 40 mg BID IV 04/21/25 22:00 04/22/25 09:31 40 MG Midazolam HCl 100 ml @ 1 mls/hr Q24H IV 04/22/25 15:45 Fentanyl Citrate 250 ml @ 2.5 mls/hr Q24H IV 04/22/25 15:45 04/22/25 15:45 2.5 MLS/HR Pantoprazole Sodium 40 mg DAILY IV 04/23/25 10:00 UNV Examination General: Intubated, sedated, not opening eyes and not following commands HEENT: Normocephalic, atraumatic, moist mucous membranes Respiratory/pulmonary: diminished breath sounds bilaterally. Cardiovascular: Normal heart sounds S1 and S2 with no associated murmurs Abdomen: Abdomen nondistended, there is no pain to palpation in any of the abdominal quadrants, no palpable masses. Extremities: There is no peripheral edema present at the lower extremities. Peripheral Pulses: 3+ Radial (R). 3+ Radial (L). 3+ Dorsalis pedis (R). 3+ Dorsalis pedis(L) Skin: Multiple skin tears, no sacral wound present, Neurological: Pupils reactive, gag and cough reflex present laboratory and microbiology Laboratory Tests 04/22/25 03:30 Test 04/22/25 03:30 Range/Units Serum Glucose 104 74-106 mg/dL Microbiology Date/Time Source Procedure Growth Status 04/15/25 20:17 Sputum Gram Stain - Final Complete 04/15/25 20:17 Sputum Respiratory Culture - Final Complete 04/12/25 22:58 Stool Stool Culture - Final Complete 04/12/25 22:58 Stool Shiga Toxin I & II - Final Complete 04/05/25 08:00 Nose MRSA Screen - Final Complete 04/02/25 20:04 Blood Blood Culture - Final NO GROWTH AFTER 5 DAYS OF INCUBATION. Complete Problem List/Assessment/Plan Problem List/Assessment/Plan Neurology Acute metabolic/hypoxic encephalopathy likely due to COPD exacerbation - Mechanically ventilated, sedated: RASS score -3 - ventilator setting: on AC mode; RR 20,VT 350, Fio2-35%, PEEP-5 - neurology on board Cardiology ? acute on chronic systolic/diastolic Congestive heart failure - ordered 2D echo, -EF of 35% Respiratory Sepsis likely due to below Acute on chronic hypoxic respiratory failure secondary to acute COPD exacerbation/ pneumonia Acute G +/- Bacterial PNA possible atelectasis - continue bronchodilators, - continue Solu-Medrol 40 mg - chest xray: Slight interval advancement of the endotracheal tube such that the tip now projects approximately 3.9 cm above the level of the vani. Remaining lines and tubes unchanged. Stable chronic appearing bilateral interstitial pulmonary markings and mild bibasilar pulmonary airspace disease - IV metronidazole, azithromycin changed to doxycycline, cefepime, micafungin - Fluconazole, cefepime,(04/15), vancomycin(04/16) - respiratory culture -showed for filamentous fungi - Chest CT showed lower lobe consolidation, multiple small foci, severe centrilobar Emphysema. GI/Liver Cachexia BMI 15.3 Severe protein malnutrition Slow transit constipation - Miralax Hematology Anemia of chronic disease Iron deficiency anemia - monitor hemoglobin Renal Electrolytes hyponatremia hypocalcemia hypophosphatemia - replete electrolytes - Monitor electrolytes Lines/tubes/devices Airway: Intubated via ETT on 04/03/25 , extubated on 04/13/25, Re intubated (04/15) Vascular access: Central line Rt IJ 04/05 and Rt femoral 04/03 Drips: Fentanyl, midazolam Diet: DVT prophylaxis: Lovenox(held due to low hemoglobin) GI prophylaxis: Protonix Great discussion taken place with Daughter for 37 mins about patients condition and poor prognosis, and possible Tracheostomy. Goals of car discussed with family for more than 29 minutes : Full code Care plan updated to the Daughter, critical time spent more than 84 minutes excluding procedures Case discussed with Dr. Rothman , RN Plan discussed with: Daughter My Orders My Orders Orders - CRICKET GUAMAN Procedure Category Date Status Time Abg W/ Co-Ox RT 04/22/25 Logged 06:27 Pantoprazole PHA 04/23/25 Logged (Protonix) 10:00 Dietary Evaluation Review Comments: 1) If patient remains NPO > 7 days, consider EN/TPN to meet at least 75% estimated daily needs 2) If gut is preferred, initiate Vital High Protein @ 40 mL/hr goal rate as tolerated. Flush with 50 mL free H2O Q6H. EN regimen will provide 960 kcals, 84g Pro, and 1003 mL free H2O (including TF flushes) per 24 hrs. Goal rate will meet ~ 95% estimated energy needs and ~ 93% estimated protein needs 3) Advance to cardiac diet when medically feasible, pending ST approval 4) Refer to outpatient RD for weight management 5) Follow-up with cardiology and pulmonology 6) Continue to monitor I&O, labs, and skin integrity Expected Outcomes/Goals: 1) patient to receive nutritional support within 7 days of NPO status 2) labs to improve 3) diet to advance 4) gradual wt gain 5) f/u in 2-3 days Date of Service: Apr 22, 2025 Billing Provider: REBECCA BRIGGS MD Common Visit Codes: 65339-CEFOEKJO CARE 30-74 MIN, [id number]-[id number] CARE-EACH +30MIN CRICKET GUAMAN Apr 22, 2025 17:17 REBECCA BRIGGS MD Apr 23, 2025 12:22
[2025-04-22] MEDS: PANTOPRAZOLE 40 MG/10 ML VIAL INJ IV SCH (18:29)
[2025-04-23] VITALS (110 sets, daily range): BP systolic 102–153; BP diastolic 64–93; PULSE 105–122; RESP 12–22; TEMP 96.9–98.3; O2SAT 91–100
[2025-04-23 03:49] LABS: Nucleated Red Blood Cells % 0.1 %
[2025-04-23 03:51] LABS: Hematocrit 35.9 % (36.0-46.0); Hemoglobin 11.9 g/dL (12.2-16.2); Mean Corpuscular Hemoglobin 30.8 pg (28.0-32.0); Mean Corpuscular Volume 92.9 fL (80.0-100.0)
[2025-04-23 04:01] LABS: Anion Gap 12 (5-15); BUN/Creatinine Ratio 69.7 (10.0-20.0); Carbon Dioxide 24 mmol/L (20-31); Magnesium 1.9 mg/dL (1.6-2.6); Potassium 3.8 mmol/L (3.5-5.1)
[2025-04-23 04:02] LABS: Bilirubin, Total 0.6 mg/dL (0.2-1.0)
[2025-04-23 04:06] LABS: Alanine Aminotransferase 58 U/L (7-40); Albumin 2.7 g/dL (3.2-4.8); Alkaline Phosphatase 133 U/L (46-116); Blood Urea Nitrogen 53 mg/dL (9-23); Calcium 8.4 mg/dL (8.7-10.4); Chloride 112 mmol/L (98-107); Glucose 186 mg/dL (74-106); Sodium 148 mmol/L (136-145); Total Protein 4.4 g/dL (5.7-8.2)
[2025-04-23] MEDS: Jevity 1.2 Cal/Fiber 1 Liter GT SCH (04:57)
--- NOTE | 2025-04-23 05:47 | DVH ---
CHEST RADIOGRAPH Indication: on vent Technique: Single frontal view of the chest was obtained COMPARISON: XY CHEST XRAY 1 VIEW on DOS: 04/22/25, XY CHEST XRAY 1 VIEW on DOS: 04/21/25, XY CHEST XRAY 1 VIEW on DOS: 04/20/25, XY CHEST XRAY 1 VIEW on DOS: 04/19/25, XY CHEST PORTABLE on DOS: 04/18/25 FINDINGS: Lines and Tubes: Endotracheal tube and enteric catheter in satisfactory position. Left PICC in satisfactory position. Lungs: Hyperinflated suggestive of COPD. Bilateral lower lobe airspace disease. Pleura: Small left pleural effusion. No pneumothorax. Cardiomediastinal contours: Unremarkable Bones: Unremarkable IMPRESSION: Lines and tubes in satisfactory position. No significant interval change.
[2025-04-23 06:29] LABS: Base Excess -1.8 mmol/L (-2.0-3.0)
--- NOTE | 2025-04-23 10:32 | DVHPN2 ---
Progress Note - Dictate Date Seen: Apr 23, 2025 Medical Necessity Reason Pt with a Central, PICC or Fol: Yes The following are medically ne: Central Line, Chin Catheter Subjective Ms. Cedeno is a 59 years old female with a history of hypotension, dyslipidemia, congestive heart failure, COPD, GERD, anxiety, she was brought to the [facility] on 03/30/2025 with a chief complaint of shortness breath. She choked when she was eating dinner and reintubated on 04/15/2025 I have seen and examined the patient in the ICU, she is intubated, but is awake, she follows verbal commands, she can move the hands and feet a little bit. Pupil size: In the morning on 04/05/2025: Equal. Early afternoon: UPON REASSESSMENT, PUPILS WERE UNEQUAL. LEFT PUPIL IS AT 5 AND RIGHT PUPIL AT 3 AND SLUGGISH REACTION TO LIGHT. MD MCPHERSON NOTIFIED AND NEW ORDERS RECEIVED FOR STAT HEAD CT AND NEUROLOGIST CONSULT. 04/06/2025: Rt: 3, Lt: 3-4. 04/07/25: Rt: 2mm, Lt: 3mm 04/08/2025: Rt: 2mm, Lt: 3mm 04/08/2025: Rt: 2mm, Lt: 2mm 04/11/2025: Rt: 2mm, Lt: 4mm 04/12/2025: Rt: 2mm, Lt: 4mm 04/13/2025: Rt: 2mm, Lt: 4mm 04/14/2025: Rt: 2mm, Lt: 4mm 04/16/2025: Pupil size about 2-3 mm, right-sided slightly bigger 04/17/2025: Almost the same size, possibly left side bigger 04/18/2025: Small pupils, with the left-sided slightly bigger 04/19/2025: very small and looks symmetric 04/20/2025: Rt: 2mm, Lt: 2-3mm 04/21/2025: Rt: 2mm, Lt: 4mm 04/22/2025: Rt: 2mm, Lt: 4mm 04/23/2025: Rt: 2mm, Lt: 4mm Blood culture, 04/02/2025: Negative UDS, 04/02/2025: Negative Plasma alcohol, 04/02/2025: <3 Urinalysis, 04/02/2025: WBC: 1, urine leukocyte esterase: Negative ABG, 04/05/2025: Carbon dioxide retention WBC/HB/PLT/MCV, 04/02/2025: 22.5/9.7/236/95.6, 04/03/2025: 71.9/10.8/245/96.3, 04/04/2025: 26.6/9.8/251/95.5, 04/06/2025: 14.5/8.8/278/93.6, 04/08/2025: 15.5/8.9/234/93.6. 04/17/25: 17.4/6.8/3/95.8, 04/18/2025: 20.1/10.5/88/91.3 CMP, 04/04/2025: Unremarkable Chest x-ray, 04/02/2025: Patchy pcnha-[id number]-nhxn-left bibasilar opacities, favoring infection Chest x-ray 04/05/2025: 1. Endotracheal tube 5.8 cm above the vani 2. Right internal jugular catheter in place at the cavoatrial junction. 3. Enteric tube below the left diaphragm less likely in the stomach. 4. IMPROVING airspace disease right lower lobe. Chest x-ray, 04/08/2025: 1. No acute cardiopulmonary disease. 2. Lines and tubes unchanged. Chest x-ray, 04/15/2025: Increased right lower lobe airspace disease CT head, 04/05/2025:1. No evidence of acute intracranial abnormality. 2. Mild subcortical and periventricular low attenuation, nonspecific but most commonly associated with sequelae of chronic microvascular ischemic changes although other etiologies are not excluded. vital signs Vital Sign Date Time Temp Pulse Resp B/P (MAP) Pulse Ox O2 Delivery O2 Flow Rate FiO2 04/23/25 07:42 117 18 146/87 (106) 97 35 04/23/25 05:50 Mechanical Ventilator+ 04/23/25 04:00 97.7 97.7 Total Intake and Output 04/22/25 04/22/25 04/23/25 15:00 23:00 07:00 Intake Total 152.106 ml 37.5 ml 354.5 ml Output Total 350 ml 350 ml Balance 152.106 ml -312.5 ml 4.5 ml medications Current Medications Medications Dose Ordered Sig/Guy Route Start Time Stop Time Status Last Admin Dose Admin Norepinephrine Bitartrate 250 ml @ 3.75 mls/hr Q24H IV 04/03/25 10:00 UNV Fat Emulsion Intravenous 50 ml/ Sodium Chloride 40 meq/Potassium Chloride 20 meq/ Potassium Phosphate 44 meq/ Calcium Gluconate 2.3 meq/Magnesium Sulfate 8 meq/ Multivitamins 10 ml/Chromium/ Copper/Manganese/ Zinc 1 ml/Amino Acids/Dextrose/ Purified Water 1,047.9462 ml @ 44 mls/hr [id number] IV 04/06/25 22:00 04/06/25 22:00 Cancel Sodium Chloride 10 ml QSHIFT@10,22 IV 04/09/25 22:00 04/22/25 21:59 10 ML Fluconazole 100 ml @ 100 mls/hr DAILY IV 04/16/25 10:00 04/22/25 09:28 100 MLS/HR Vancomycin HCl 0 ml @ 0 mls/hr PER PHARMACY IV 04/16/25 12:15 Ipratropium [place] 0.5 mg Q6HR NEB 04/16/25 18:00 04/23/25 06:16 0.5 MG Levalbuterol HCl 1.25 mg Q6HR NEB 04/16/25 18:00 04/23/25 06:16 1.25 MG Cefepime HCl 50 ml @ 12.5 mls/hr Q12H IV 04/17/25 11:00 04/22/25 22:05 12.5 MLS/HR Enteral Nutritional Formula 1,000 ml 30ML/HR GT 04/18/25 09:15 04/23/25 04:57 1,000 ML Methylprednisolone Sodium Succinate 40 mg BID IV 04/21/25 22:00 04/22/25 21:58 40 MG Midazolam HCl 100 ml @ 1 mls/hr Q24H IV 04/22/25 15:45 Fentanyl Citrate 250 ml @ 2.5 mls/hr Q24H IV 04/22/25 15:45 04/22/25 15:45 2.5 MLS/HR Pantoprazole Sodium 40 mg DAILY IV 04/22/25 17:51 04/22/25 18:29 40 MG objective The patient is well-nourished and well-developed with no distress. The patient is intubated MENTAL STATUS: Subjective CRANIAL NERVES: Pupils are round and reactive.There conjugated eye movement. No signs of facial weakness. There are gagging or coughing reflexes during oral in the airway care SENSATION: Responses to pain stimuli. MOTOR: Normal tone in the upper and lower extremity. Normal muscle bulk. No fasciculations. Moves the hands and feet slightly REFLEXES: Deep tendon reflexes are symmetrical. No pathological reflexes. CEREBELLAR/COORDINATION: Deferred GAIT/STATION: deferred. laboratory and microbiology Laboratory Tests 04/23/25 03:00 Test 04/23/25 03:00 Range/Units Serum Glucose 186 H 74-106 mg/dL Problem List Altered mental status, Hypoxic encephalopathy Metabolic encephalopathy Toxic encephalopathy Acute on chronic respiratory failure, reintubated on 04/15/2025 Pneumoniae, Leukocytosis/sepsis Anisocoria Etiology unclear Cachexia Assessment/Plan Monitoring Supportive treatment ICU Stabilize vitals/pressor drip Respiratory support/vent management Oxygen IV antibiotics DVT prophylaxis GI prophylaxis More recommendation per clinical course She may need tracheostomy and feeding tube This medical document was created using an electronic medical record system with [employer] dictation system. Although this document has been carefully reviewed, there may still be some phonetic and typographical errors. These areas are purely typographical due to imperfections of the software programs, and do not reflect any compromise in the patient's medical care. Prognosis guarded Dietary Evaluation Review Comments: 1) If patient remains NPO > 7 days, consider EN/TPN to meet at least 75% estimated daily needs 2) If gut is preferred, initiate Vital High Protein @ 40 mL/hr goal rate as tolerated. Flush with 50 mL free H2O Q6H. EN regimen will provide 960 kcals, 84g Pro, and 1003 mL free H2O (including TF flushes) per 24 hrs. Goal rate will meet ~ 95% estimated energy needs and ~ 93% estimated protein needs 3) Advance to cardiac diet when medically feasible, pending ST approval 4) Refer to outpatient RD for weight management 5) Follow-up with cardiology and pulmonology 6) Continue to monitor I&O, labs, and skin integrity Expected Outcomes/Goals: 1) patient to receive nutritional support within 7 days of NPO status 2) labs to improve 3) diet to advance 4) gradual wt gain 5) f/u in 2-3 days Plan discussed with: RAMAN Perkins MD Apr 23, 2025 10:32
[2025-04-23] MEDS ORDERED: MEROPENEM 1GM IVPB 50 ML IV SCH (14:00)
[2025-04-23] MEDS: MEROPENEM 1GM IVPB 50 ML IV ONE (15:53)
--- NOTE | 2025-04-23 16:40 | DVHPNRES ---
Progress Note Date Seen: Apr 23, 2025 Resident Creating Document: CRICKET GUAMAN RESIDENT Medical Necessity Reason Pt with a Central, PICC or Fol: Yes The following are medically ne: Central Line, Chin Catheter Subjective Review of Systems Patient is a 59 year old female with past medical history of CHF, Chronic obstructive pulmonary disease, GERD, hyperlipidemia who presented to hospital with chief complaints of shortness of breath. As per daughter patient had increased work of breathing, uses home oxygen 2 L, which was increased to 6 L at home for which saturation improved to 94%. Patient in the ER became altered and was intubated on 04/03/25. as per daughter echocardiogram showed 50% in [facility]. x-ray showed Stable chronic appearing bilateral interstitial pulmonary markings and mild bibasilar pulmonary airspace disease. Past surgical history: Tonsillectomy family history: reviewed, noncontributory Social history: per daughter patient has smoked since she was 15 years old and nicotine vape, used methamphetamine 04/11/25: Patient seen in ICU. on cpap trial, on pressure support control, pulling 400 ml volume Psupport 10 and Peep 5 mm hg. plan for cpap trial tomorrow. 04/12/25: Patient seen in ICU. CPAP trial failed. NIf -13. we will try again tomorrow. 04/13/25: Patient seen in the ICU. patient was successfully extubated today. We will keep monitoring oxygen saturation, or possible need for BiPAP. Patient's daughter at bedside was explained about patient's condition and prognosis. 04/14/2025: Patient seen at the ICU. Patient was successfully extubated yesterday. Patient is on 2 L oxygen. physical therapy tomorrow. Patient's passed swallow eval and diet was switched to soft mechanical diet. 04/15/25: Patient seen at the ICU. Patient is on 3 L oxygen. Patients diet changed to purred diet. discussion done with Daughter about patients condition and recommended discharge to snf. Consulted SS for SNF placement. Added IV fluconazole, and cefepime. Patient had a bowel movement . 04/16/2025: patient seen in ICU. patient was intubated yesterday due to possible aspiration, atelectasis. patient is on levo 14, [place] 18, Versed 4, fentanyl 100, ventilator settings at FiO2 80%, peep of 5, VT 400, respiratory rate 22. Added vancomycin , methylprednisone. Ordered 2D echo, Patient's condition was discussed with daughter and possible regarding of tracheostomy. 04/17/2025 Patient seen in ICU. Patint is intubated, sedated echo still pending, today patient's hemoglobin dropped from 9.97.7 and platelets also dropped, held Lovenox, stool occult blood ordered. 04/18/2025: Patient seen in ICU. Continued to be on ventilation. Patient was received 1 unit of PRBCs yesterday evening. Has been hold anticoagulation. Patient continued to have bilateral wheezing, continue racing steroids, antibiotics, breathing treatment. Continue monitoring. No any other night complaints. 04/19/2025: Patient seen in ICU, continued on the ventilator, patient today does not have any wheezing, patient is continued on antibiotics, breathing treatment. CPAP trial tomorrow. Discussion done with the daughter regarding tracheostomy Tomorrow. Patient is on vasopressor, sedation. 04/20/25: Patient seen in ICU, on ventilator, patient today is opening her eyes and is following commands. CPAP tomorrow morning. 04/21/2025: Patient seen in ICU, on ventilator, off pressors, sedation,. Patient is opening her eyes, following commands. CPAP trial tomorrow morning. Possible tracheostomy to be done. 04/22/2025: Patient seen in ICU, of pressors, of sedation, patient is on ventilator,. CPAP shock done today, planning for tracheostomy. 04/23/2025: Patient seen in ICU, off pressors, off sedation. patient failed CPAP so planning for tracheostomy tomorrow. Discussion done with daughter regarding tracheostomy and daughter has agreed. Cefepime changed to meropenem. Monitor platelets. Objective vital signs Vital Sign Date Time Temp Pulse Resp B/P (MAP) Pulse Ox O2 Delivery O2 Flow Rate FiO2 04/23/25 16:24 111 18 130/78 (95) 97 35 04/23/25 16:00 98.1 98.1 04/23/25 08:00 Mechanical Ventilator+ Total Intake and Output 04/22/25 04/22/25 04/23/25 15:00 23:00 07:00 Intake Total 152.106 ml 37.5 ml 354.5 ml Output Total 350 ml 350 ml Balance 152.106 ml -312.5 ml 4.5 ml medications Current Medications Medications Dose Ordered Sig/Guy Route Start Time Stop Time Status Last Admin Dose Admin Norepinephrine Bitartrate 250 ml @ 3.75 mls/hr Q24H IV 04/03/25 10:00 UNV Fat Emulsion Intravenous 50 ml/ Sodium Chloride 40 meq/Potassium Chloride 20 meq/ Potassium Phosphate 44 meq/ Calcium Gluconate 2.3 meq/Magnesium Sulfate 8 meq/ Multivitamins 10 ml/Chromium/ Copper/Manganese/ Zinc 1 ml/Amino Acids/Dextrose/ Purified Water 1,047.9462 ml @ 44 mls/hr [id number] IV 04/06/25 22:00 04/06/25 22:00 Cancel Sodium Chloride 10 ml QSHIFT@10,22 IV 04/09/25 22:00 04/23/25 11:07 10 ML Fluconazole 100 ml @ 100 mls/hr DAILY IV 04/16/25 10:00 04/23/25 11:06 100 MLS/HR Vancomycin HCl 0 ml @ 0 mls/hr PER PHARMACY IV 04/16/25 12:15 Ipratropium [place] 0.5 mg Q6HR NEB 04/16/25 18:00 04/23/25 11:36 0.5 MG Levalbuterol HCl 1.25 mg Q6HR NEB 04/16/25 18:00 04/23/25 11:36 1.25 MG Enteral Nutritional Formula 1,000 ml 30ML/HR GT 04/18/25 09:15 04/23/25 04:57 1,000 ML Methylprednisolone Sodium Succinate 40 mg BID IV 04/21/25 22:00 04/23/25 11:07 40 MG Midazolam HCl 100 ml @ 1 mls/hr Q24H IV 04/22/25 15:45 Fentanyl Citrate 250 ml @ 2.5 mls/hr Q24H IV 04/22/25 15:45 04/22/25 15:45 2.5 MLS/HR Pantoprazole Sodium 40 mg DAILY IV 04/22/25 17:51 04/23/25 11:06 40 MG Meropenem 50 ml @ 17 mls/hr Q8HR IV 04/23/25 14:00 UNV Purified Water 200 ml Q6HR GT 04/23/25 18:00 Meropenem 50 ml @ 17 mls/hr Q12H IV 04/23/25 23:00 Examination General: Intubated, sedated, not opening eyes and not following commands HEENT: Normocephalic, atraumatic, moist mucous membranes Respiratory/pulmonary: diminished breath sounds bilaterally. Cardiovascular: Normal heart sounds S1 and S2 with no associated murmurs Abdomen: Abdomen nondistended, there is no pain to palpation in any of the abdominal quadrants, no palpable masses. Extremities: There is no peripheral edema present at the lower extremities. Peripheral Pulses: 3+ Radial (R). 3+ Radial (L). 3+ Dorsalis pedis (R). 3+ Dorsalis pedis(L) Skin: Multiple skin tears, no sacral wound present, Neurological: Pupils reactive, gag and cough reflex present laboratory and microbiology Laboratory Tests 04/23/25 03:00 Test 04/23/25 03:00 Range/Units Serum Glucose 186 H 74-106 mg/dL Microbiology Date/Time Source Procedure Growth Status 04/15/25 20:17 Sputum Gram Stain - Final Complete 04/15/25 20:17 Sputum Respiratory Culture - Final Complete 04/12/25 22:58 Stool Stool Culture - Final Complete 04/12/25 22:58 Stool Shiga Toxin I & II - Final Complete 04/05/25 08:00 Nose MRSA Screen - Final Complete 04/02/25 20:04 Blood Blood Culture - Final NO GROWTH AFTER 5 DAYS OF INCUBATION. Complete Problem List/Assessment/Plan Problem List/Assessment/Plan Neurology Acute metabolic/hypoxic encephalopathy likely due to COPD exacerbation - Mechanically ventilated, sedated: RASS score -3 - ventilator setting: on AC mode; RR 20,VT 350, Fio2-35%, PEEP-5 - neurology on board Cardiology Chronic diastolic Congestive heart failure - ordered 2D echo, -EF of 35% Respiratory Sepsis likely due to below Acute on chronic hypoxic respiratory failure secondary to acute COPD exacerbation/ pneumonia Acute G +/- Bacterial PNA possible atelectasis - continue bronchodilators, - continue Solu-Medrol 40 mg - chest xray: Slight interval advancement of the endotracheal tube such that the tip now projects approximately 3.9 cm above the level of the vani. Remaining lines and tubes unchanged. Stable chronic appearing bilateral interstitial pulmonary markings and mild bibasilar pulmonary airspace disease - IV metronidazole, azithromycin changed to doxycycline, cefepime, micafungin - Fluconazole, cefepime,(04/15), vancomycin(04/16), cefepime changed to meropenem(04/23) - respiratory culture -showed for filamentous fungi - Chest CT showed lower lobe consolidation, multiple small foci, severe centrilobar Emphysema. GI/Liver Cachexia BMI 15.3 Severe protein malnutrition Slow transit constipation - Miralax Hematology Anemia of chronic disease Iron deficiency anemia - monitor hemoglobin Renal Electrolytes hyponatremia hypocalcemia hypophosphatemia - replete electrolytes - Monitor electrolytes Lines/tubes/devices Airway: Intubated via ETT on 04/03/25 , extubated on 04/13/25, Re intubated (04/15) Vascular access: Central line Rt IJ 04/05 and Rt femoral 04/03 Drips: Fentanyl, midazolam Diet: DVT prophylaxis: Lovenox(held due to low hemoglobin) GI prophylaxis: Protonix Great discussion taken place with Daughter for 37 mins about patients condition and poor prognosis, and possible Tracheostomy. Goals of car discussed with family for more than 29 minutes : Full code Care plan updated to the Daughter, critical time spent more than 64 minutes excluding procedures Case discussed with Dr. Rothman , RN Plan discussed with: Daughter My Orders My Orders Orders - CRICKET GUAMAN RESIDENT Procedure Category Date Status Time Chest Xray 1 View XY 04/23/25 Resulted 04:00 Abg W/ Co-Ox RT 04/23/25 Logged 04:00 Pantoprazole PHA 04/22/25 In Process (Protonix) 17:51 Urinalysis LAB 04/23/25 Logged 13:52 Dietary Evaluation Review Comments: 1) If patient remains NPO > 7 days, consider EN/TPN to meet at least 75% estimated daily needs 2) If gut is preferred, initiate Vital High Protein @ 40 mL/hr goal rate as tolerated. Flush with 50 mL free H2O Q6H. EN regimen will provide 960 kcals, 84g Pro, and 1003 mL free H2O (including TF flushes) per 24 hrs. Goal rate will meet ~ 95% estimated energy needs and ~ 93% estimated protein needs 3) Advance to cardiac diet when medically feasible, pending ST approval 4) Refer to outpatient RD for weight management 5) Follow-up with cardiology and pulmonology 6) Continue to monitor I&O, labs, and skin integrity Expected Outcomes/Goals: 1) patient to receive nutritional support within 7 days of NPO status 2) labs to improve 3) diet to advance 4) gradual wt gain 5) f/u in 2-3 days Date of Service: Apr 23, 2025 Billing Provider: REBECCA BRIGGS MD Common Visit Codes: 53693-AWORKMKX CARE 30-74 MIN CRICKET GUAMAN RESIDENT Apr 23, 2025 16:40 REBECCA BRIGGS MD Apr 25, 2025 18:17
[2025-04-23] MEDS: FREE WATER GT SCH (18:20)
[2025-04-23 20:52] LABS: Urine Amorphous Crystal FEW /hpf (None Seen); Urine WBC Clumps PRESENT /hpf (None Seen)
[2025-04-23 21:14] LABS: Urine Protein, UAD 3+ (Negative)
[2025-04-23] MEDS: MEROPENEM 1GM IVPB 50 ML IV SCH (23:57)
[2025-04-24] VITALS (109 sets, daily range): BP systolic 87–147; BP diastolic 45–82; PULSE 93–121; RESP 11–22; TEMP 97.2–98.7; O2SAT 93–100
[2025-04-24 03:18] LABS: Hemoglobin 10.5 g/dL (12.2-16.2); Nucleated Red Blood Cells % 0.0 %
[2025-04-24 03:20] LABS: Hematocrit 31.5 % (36.0-46.0); Mean Corpuscular Hemoglobin 31.3 pg (28.0-32.0); Mean Corpuscular Volume 93.9 fL (80.0-100.0)
[2025-04-24 03:37] LABS: Anion Gap 10 (5-15); BUN/Creatinine Ratio 56.3 (10.0-20.0); Bilirubin, Total 0.4 mg/dL (0.2-1.0); Carbon Dioxide 25 mmol/L (20-31); Magnesium 1.9 mg/dL (1.6-2.6); Potassium 4.2 mmol/L (3.5-5.1)
[2025-04-24 03:59] LABS: Alanine Aminotransferase 45 U/L (7-40); Albumin 2.4 g/dL (3.2-4.8); Alkaline Phosphatase 122 U/L (46-116); Blood Urea Nitrogen 49 mg/dL (9-23); Calcium 8.0 mg/dL (8.7-10.4); Chloride 113 mmol/L (98-107); Glucose 165 mg/dL (74-106); Sodium 148 mmol/L (136-145); Total Protein 4.2 g/dL (5.7-8.2)
[2025-04-24 06:00] LABS: INR 1.25 (0.9-1.15); Partial Thromboplastin Time 37.2 SEC (24.5-34.5); Prothrombin Time 13.0 sec (9.3-11.8)
--- NOTE | 2025-04-24 06:03 | DVH ---
MEDICAL RECORDS NUMBER: [id number] PROCEDURE: XY CHEST XRAY 1 VIEW DATE: 04/24/2025 05:35 AM HISTORY: on vent Views:1 COMPARISON: XY CHEST XRAY 1 VIEW on DOS: 04/23/25, XY CHEST XRAY 1 VIEW on DOS: 04/22/25, XY CHEST XRAY 1 VIEW on DOS: 04/21/25, XY CHEST XRAY 1 VIEW on DOS: 04/20/25, XY CHEST XRAY 1 VIEW on DOS: 04/19/25 FINDINGS/IMPRESSION: Lungs: Hypoventilatory changes of the bases particularly on the left. Lungs are hyperexpanded. chronic changes suggestive of COPD. Mediastinum: Mediastinal structures appear unremarkable.A endotracheal tube is seen with the tip projecting approximately 3 cm above the vani.NG tube is seen with the tip projecting over the expected position of the stomach. Left-sided central line projecting over the right atrium Skeletal: The skeletal structures appear unremarkable.
[2025-04-24 06:19] LABS: Base Excess -2.0 mmol/L (-2.0-3.0)
--- NOTE | 2025-04-24 10:47 | DVHPNRES ---
Progress Note Date Seen: Apr 24, 2025 Resident Creating Document: CRICKET GUAMAN RESIDENT Medical Necessity Reason Pt with a Central, PICC or Fol: Yes The following are medically ne: Central Line, Chin Catheter Subjective Review of Systems Patient is a 59 year old female with past medical history of CHF, Chronic obstructive pulmonary disease, GERD, hyperlipidemia who presented to hospital with chief complaints of shortness of breath. As per daughter patient had increased work of breathing, uses home oxygen 2 L, which was increased to 6 L at home for which saturation improved to 94%. Patient in the ER became altered and was intubated on 04/03/25. as per daughter echocardiogram showed 50% in [facility]. x-ray showed Stable chronic appearing bilateral interstitial pulmonary markings and mild bibasilar pulmonary airspace disease. Past surgical history: Tonsillectomy family history: reviewed, noncontributory Social history: per daughter patient has smoked since she was 15 years old and nicotine vape, used methamphetamine 04/11/25: Patient seen in ICU. on cpap trial, on pressure support control, pulling 400 ml volume Psupport 10 and Peep 5 mm hg. plan for cpap trial tomorrow. 04/12/25: Patient seen in ICU. CPAP trial failed. NIf -13. we will try again tomorrow. 04/13/25: Patient seen in the ICU. patient was successfully extubated today. We will keep monitoring oxygen saturation, or possible need for BiPAP. Patient's daughter at bedside was explained about patient's condition and prognosis. 04/14/2025: Patient seen at the ICU. Patient was successfully extubated yesterday. Patient is on 2 L oxygen. physical therapy tomorrow. Patient's passed swallow eval and diet was switched to soft mechanical diet. 04/15/25: Patient seen at the ICU. Patient is on 3 L oxygen. Patients diet changed to purred diet. discussion done with Daughter about patients condition and recommended discharge to snf. Consulted SS for SNF placement. Added IV fluconazole, and cefepime. Patient had a bowel movement . 04/16/2025: patient seen in ICU. patient was intubated yesterday due to possible aspiration, atelectasis. patient is on levo 14, winston 18, Versed 4, fentanyl 100, ventilator settings at FiO2 80%, peep of 5, VT 400, respiratory rate 22. Added vancomycin , methylprednisone. Ordered 2D echo, Patient's condition was discussed with daughter and possible regarding of tracheostomy. 04/17/2025 Patient seen in ICU. Patint is intubated, sedated echo still pending, today patient's hemoglobin dropped from 9.97.7 and platelets also dropped, held Lovenox, stool occult blood ordered. 04/18/2025: Patient seen in ICU. Continued to be on ventilation. Patient was received 1 unit of PRBCs yesterday evening. Has been hold anticoagulation. Patient continued to have bilateral wheezing, continue racing steroids, antibiotics, breathing treatment. Continue monitoring. No any other night complaints. 04/19/2025: Patient seen in ICU, continued on the ventilator, patient today does not have any wheezing, patient is continued on antibiotics, breathing treatment. CPAP trial tomorrow. Discussion done with the daughter regarding tracheostomy Tomorrow. Patient is on vasopressor, sedation. 04/20/25: Patient seen in ICU, on ventilator, patient today is opening her eyes and is following commands. CPAP tomorrow morning. 04/21/2025: Patient seen in ICU, on ventilator, off pressors, sedation,. Patient is opening her eyes, following commands. CPAP trial tomorrow morning. Possible tracheostomy to be done. 04/22/2025: Patient seen in ICU, of pressors, of sedation, patient is on ventilator,. CPAP shock done today, planning for tracheostomy. 04/23/2025: Patient seen in ICU, off pressors, off sedation. patient failed CPAP so planning for tracheostomy tomorrow. Discussion done with daughter regarding tracheostomy and daughter has agreed. Cefepime changed to meropenem. Monitor platelets. : Patient seen in ICU, is off pressors of sedation. discussion done with daughter yesterday about tracheostomy and she has agreed. Platelets trended down so 2 bags of platelets were ordered. Tracheostomy done. . Patient is able to open eyes, following commands. Discontinued Solu medrol. Objective vital signs Vital Sign Date Time Temp Pulse Resp B/P (MAP) Pulse Ox O2 Delivery O2 Flow Rate FiO2 04/24/25 09:54 96 18 100/62 (75) 97 35 04/24/25 05:40 Mechanical Ventilator+ 04/24/25 04:00 98.7 98.7 Total Intake and Output 04/23/25 04/23/25 04/24/25 15:00 23:00 07:00 Intake Total 177.5 ml 819 ml 296 ml Output Total 275 ml 280 ml Balance 177.5 ml 544 ml 16 ml medications Current Medications Medications Dose Ordered Sig/Guy Route Start Time Stop Time Status Last Admin Dose Admin Norepinephrine Bitartrate 250 ml @ 3.75 mls/hr Q24H IV 04/03/25 10:00 UNV Fat Emulsion Intravenous 50 ml/ Sodium Chloride 40 meq/Potassium Chloride 20 meq/ Potassium Phosphate 44 meq/ Calcium Gluconate 2.3 meq/Magnesium Sulfate 8 meq/ Multivitamins 10 ml/Chromium/ Copper/Manganese/ Zinc 1 ml/Amino Acids/Dextrose/ Purified Water 1,047.9462 ml @ 44 mls/hr [id number] IV 04/06/25 22:00 04/06/25 22:00 Cancel Sodium Chloride 10 ml QSHIFT@10,22 IV 04/09/25 22:00 04/24/25 09:56 10 ML Fluconazole 100 ml @ 100 mls/hr DAILY IV 04/16/25 10:00 04/24/25 09:44 100 MLS/HR Vancomycin HCl 0 ml @ 0 mls/hr PER PHARMACY IV 04/16/25 12:15 Ipratropium [place] 0.5 mg Q6HR NEB 04/16/25 18:00 04/24/25 05:37 0.5 MG Levalbuterol HCl 1.25 mg Q6HR NEB 04/16/25 18:00 04/24/25 05:37 1.25 MG Enteral Nutritional Formula 1,000 ml 30ML/HR GT 04/18/25 09:15 04/23/25 04:57 1,000 ML Methylprednisolone Sodium Succinate 40 mg BID IV 04/21/25 22:00 04/24/25 09:43 40 MG Midazolam HCl 100 ml @ 1 mls/hr Q24H IV 04/22/25 15:45 Fentanyl Citrate 250 ml @ 2.5 mls/hr Q24H IV 04/22/25 15:45 04/24/25 06:14 5 MLS/HR Pantoprazole Sodium 40 mg DAILY IV 04/22/25 17:51 04/24/25 09:55 40 MG Meropenem 50 ml @ 17 mls/hr Q8HR IV 04/23/25 14:00 UNV Purified Water 200 ml Q6HR GT 04/23/25 18:00 04/23/25 23:57 200 ML Meropenem 50 ml @ 17 mls/hr Q12H IV 04/23/25 23:00 04/23/25 23:57 17 MLS/HR Examination General: Intubated, sedated, not opening eyes and not following commands HEENT: Normocephalic, atraumatic, moist mucous membranes Respiratory/pulmonary: diminished breath sounds bilaterally. Cardiovascular: Normal heart sounds S1 and S2 with no associated murmurs Abdomen: Abdomen nondistended, there is no pain to palpation in any of the abdominal quadrants, no palpable masses. Extremities: There is no peripheral edema present at the lower extremities. Peripheral Pulses: 3+ Radial (R). 3+ Radial (L). 3+ Dorsalis pedis (R). 3+ Dorsalis pedis(L) Skin: Multiple skin tears, no sacral wound present, Neurological: Pupils reactive, gag and cough reflex present laboratory and microbiology Laboratory Tests 04/24/25 02:30 Test 04/24/25 02:30 Range/Units Serum Glucose 165 H 74-106 mg/dL Microbiology Date/Time Source Procedure Growth Status 04/15/25 20:17 Sputum Gram Stain - Final Complete 04/15/25 20:17 Sputum Respiratory Culture - Final Complete 04/12/25 22:58 Stool Stool Culture - Final Complete 04/12/25 22:58 Stool Shiga Toxin I & II - Final Complete 04/05/25 08:00 Nose MRSA Screen - Final Complete 04/02/25 20:04 Blood Blood Culture - Final NO GROWTH AFTER 5 DAYS OF INCUBATION. Complete Problem List/Assessment/Plan Problem List/Assessment/Plan Neurology Acute metabolic/hypoxic encephalopathy likely due to COPD exacerbation - Mechanically ventilated, sedated: RASS score -3 - ventilator setting: on AC mode; RR 20,VT 350, Fio2-35%, PEEP-5 - neurology on board Cardiology Chronic diastolic Congestive heart failure - ordered 2D echo, -EF of 35% Respiratory Sepsis likely due to below Acute on chronic hypoxic respiratory failure secondary to acute COPD exacerbation/ pneumonia Acute G +/- Bacterial PNA possible atelectasis - continue bronchodilators, - continue Solu-Medrol 40 mg - chest xray: Slight interval advancement of the endotracheal tube such that the tip now projects approximately 3.9 cm above the level of the vani. Remaining lines and tubes unchanged. Stable chronic appearing bilateral interstitial pulmonary markings and mild bibasilar pulmonary airspace disease - IV metronidazole, azithromycin changed to doxycycline, cefepime, micafungin - Fluconazole, cefepime,(04/15), vancomycin(04/16), cefepime changed to meropenem(04/23) - respiratory culture -showed for filamentous fungi - Chest CT showed lower lobe consolidation, multiple small foci, severe centrilobar Emphysema. GI/Liver Cachexia BMI 15.3 Severe protein malnutrition Slow transit constipation - Miralax Hematology Anemia of chronic disease Iron deficiency anemia - monitor hemoglobin Renal Electrolytes hyponatremia hypocalcemia hypophosphatemia - replete electrolytes - Monitor electrolytes Lines/tubes/devices Airway: Intubated via ETT on 04/03/25 , extubated on 04/13/25, Re intubated (04/15) Tracheostomy (04/24) Vascular access: Central line Rt IJ 04/05 and Rt femoral 04/03 Drips: Fentanyl, midazolam Diet: DVT prophylaxis: Lovenox(held due to low hemoglobin) GI prophylaxis: Protonix Great discussion taken place with Daughter for 37 mins about patients condition and poor prognosis, and possible Tracheostomy. Goals of car discussed with family for more than 29 minutes : Full code Care plan updated to the Daughter, critical time spent more than 84 minutes excluding procedures Case discussed with Dr. Lancaster , RN Plan discussed with: Daughter My Orders My Orders Orders - CRICKET GUAMAN RESIDENT Procedure Category Date Status Time Chest Xray 1 View XY 04/24/25 Resulted 04:00 Abg W/ Co-Ox RT 04/24/25 Logged 04:00 Dietary Evaluation Review Comments: 1) If patient remains NPO > 7 days, consider EN/TPN to meet at least 75% estimated daily needs 2) If gut is preferred, initiate Vital High Protein @ 40 mL/hr goal rate as tolerated. Flush with 50 mL free H2O Q6H. EN regimen will provide 960 kcals, 84g Pro, and 1003 mL free H2O (including TF flushes) per 24 hrs. Goal rate will meet ~ 95% estimated energy needs and ~ 93% estimated protein needs 3) Advance to cardiac diet when medically feasible, pending ST approval 4) Refer to outpatient RD for weight management 5) Follow-up with cardiology and pulmonology 6) Continue to monitor I&O, labs, and skin integrity Expected Outcomes/Goals: 1) patient to receive nutritional support within 7 days of NPO status 2) labs to improve 3) diet to advance 4) gradual wt gain 5) f/u in 2-3 days CRICKET GUAMAN RESIDENT Apr 24, 2025 10:47
[2025-04-24] MEDS: LIDOCAINE W/ EPINEPHRINE 1% 20ML VIAL ONE ×2 (12:00→13:27)
[2025-04-24] MEDS: BUPIVACAINE 0.25% INJ 50ML VIAL ONE ×2 (12:00→13:27)
[2025-04-24] MEDS ORDERED: ROCURONIUM 10MG/ML 10ML VIAL IV ONE (12:43)
[2025-04-24] MEDS ORDERED: SODIUM CHLORIDE LOCK 10 ML ONE (13:18)
[2025-04-24] MEDS ORDERED: PHENYLEPHRINE HCL 10 MG/ML VL ONE (13:18)
--- NOTE | 2025-04-24 14:20 | DVHOP ---
DATE OF SURGERY: 04/24/2025 PREOPERATIVE DIAGNOSIS: Ventilator-dependent respiratory failure. POSTOPERATIVE DIAGNOSIS: Ventilator-dependent respiratory failure. SURGEON: Ishan Sutton MD CARBOY FILLER: Renan Rivera NP ANESTHESIA: General. ANESTHESIOLOGIST: Dustin Bhatti. PROCEDURE: Tracheostomy. DESCRIPTION OF PROCEDURE: Under general anesthesia with the patient's skin prepped and draped, an infiltration with 0.25% Marcaine with epinephrine was accomplished into the anterior cervical skin. Incision was made through the skin. The skin has the consistency of wet toilet paper and tears with the least manipulation. Huge preexisting ecchymoses on the skin of the chest and neck were present. Through the skin incision, subcutaneous tissues were divided down onto the trachea. Strap muscles being reflected laterally. The thyroid was displaced superiorly. The third and fourth ring of the trachea were cleansed. An incision was made between those two rings and the tracheotomy was dilated. Through the tracheotomy, the size 8 endotracheal tracheostomy tube was placed as the anesthesiologist ventilated the patient on room air and withdrew the tracheostomy endotracheal tube. Tracheostomy reaching its final position, there was an immediate recapture of CO2 and returned to normal exchange of gases. The balloon was insufflated with 7 mL of air. The tracheostomy was secured with two separate 2-0 Prolene sutures and a circumferential umbilical tape. The patient remained in unchanged clinical condition at the termination of the procedure and chest x-ray ordered pending at the time of this dictation. Ishan Sutton MD PF/SUB TID: [id number] RECEIPT: [id number]
--- NOTE | 2025-04-24 14:29 | DVH ---
CHEST RADIOGRAPH Indication: S/P TRACHEOSTOMY Technique: XY CHEST PORTABLE Comparison: None FINDINGS: Tracheostomy tube tip terminates 4.5 cm above the vani. Nasogastric tube with tip projecting towards the stomach, beyond the field of view of this examination. Left PICC line tip projects over the cavoatrial junction The cardiac silhouette is unremarkable. The lungs demonstrate bilateral patchy airspace opacities most pronounced in the left lower lobe. Interstitial airspace opacities which could represent sequela of pulmonary edema, atypical infection, chronic lung changes/disease. The pulmonary vasculature is prominent. Small left pleural effusion. There is no pneumothorax. IMPRESSION: As above
[2025-04-24] MEDS: VANCOMYCIN 500mg/100mL 100 ML IV ONE (15:27)
--- NOTE | 2025-04-24 16:48 | DVHPN2 ---
Progress Note - Dictate Date Seen: Apr 24, 2025 Medical Necessity Reason Pt with a Central, PICC or Fol: Yes The following are medically ne: Central Line, Chin Catheter Subjective Ms. Cedeno is a 59 years old female with a history of hypotension, dyslipidemia, congestive heart failure, COPD, GERD, anxiety, she was brought to the [facility] on 03/30/2025 with a chief complaint of shortness breath. She choked when she was eating dinner and reintubated on 04/15/2025 I have seen and examined the patient in the ICU, he received tracheostomy on 04/24/2025, but is awake, she follows verbal commands, he moves the arms and legs Pupil size: In the morning on 04/05/2025: Equal. Early afternoon: UPON REASSESSMENT, PUPILS WERE UNEQUAL. LEFT PUPIL IS AT 5 AND RIGHT PUPIL AT 3 AND SLUGGISH REACTION TO LIGHT. MD MCPHERSON NOTIFIED AND NEW ORDERS RECEIVED FOR STAT HEAD CT AND NEUROLOGIST CONSULT. 04/06/2025: Rt: 3, Lt: 3-4. 04/07/25: Rt: 2mm, Lt: 3mm 04/08/2025: Rt: 2mm, Lt: 3mm 04/08/2025: Rt: 2mm, Lt: 2mm 04/11/2025: Rt: 2mm, Lt: 4mm 04/12/2025: Rt: 2mm, Lt: 4mm 04/13/2025: Rt: 2mm, Lt: 4mm 04/14/2025: Rt: 2mm, Lt: 4mm 04/16/2025: Pupil size about 2-3 mm, right-sided slightly bigger 04/17/2025: Almost the same size, possibly left side bigger 04/18/2025: Small pupils, with the left-sided slightly bigger 04/19/2025: very small and looks symmetric 04/20/2025: Rt: 2mm, Lt: 2-3mm 04/21/2025: Rt: 2mm, Lt: 4mm 04/22/2025: Rt: 2mm, Lt: 4mm 04/23/2025: Rt: 2mm, Lt: 4mm 04/24/2025: 4 mm, left side slightly bigger Blood culture, 04/02/2025: Negative UDS, 04/02/2025: Negative Plasma alcohol, 04/02/2025: <3 Urinalysis, 04/02/2025: WBC: 1, urine leukocyte esterase: Negative ABG, 04/05/2025: Carbon dioxide retention WBC/HB/PLT/MCV, 04/02/2025: 22.5/9.7/236/95.6, 04/03/2025: 71.9/10.8/245/96.3, 04/04/2025: 26.6/9.8/251/95.5, 04/06/2025: 14.5/8.8/278/93.6, 04/08/2025: 15.5/8.9/234/93.6. 04/17/25: 17.4/6.8/3/95.8, 04/18/2025: 20.1/10.5/88/91.3 CMP, 04/04/2025: Unremarkable Chest x-ray, 04/02/2025: Patchy xtqsi-airhmoh-xjwy-left bibasilar opacities, favoring infection Chest x-ray 04/05/2025: 1. Endotracheal tube 5.8 cm above the vani 2. Right internal jugular catheter in place at the cavoatrial junction. 3. Enteric tube below the left diaphragm less likely in the stomach. 4. IMPROVING airspace disease right lower lobe. Chest x-ray, 04/08/2025: 1. No acute cardiopulmonary disease. 2. Lines and tubes unchanged. Chest x-ray, 04/15/2025: Increased right lower lobe airspace disease CT head, 04/05/2025:1. No evidence of acute intracranial abnormality. 2. Mild subcortical and periventricular low attenuation, nonspecific but most commonly associated with sequelae of chronic microvascular ischemic changes although other etiologies are not excluded. vital signs Vital Sign Date Time Temp Pulse Resp B/P (MAP) Pulse Ox O2 Delivery O2 Flow Rate FiO2 04/24/25 16:11 102 18 108/66 (80) 99 35 04/24/25 14:00 Trach Collar 3 04/24/25 13:00 97.3 97.3 Total Intake and Output 04/23/25 04/23/25 04/24/25 15:00 23:00 07:00 Intake Total 177.5 ml 819 ml 296 ml Output Total 275 ml 280 ml Balance 177.5 ml 544 ml 16 ml medications Current Medications Medications Dose Ordered Sig/Guy Route Start Time Stop Time Status Last Admin Dose Admin Norepinephrine Bitartrate 250 ml @ 3.75 mls/hr Q24H IV 04/03/25 10:00 UNV Fat Emulsion Intravenous 50 ml/ Sodium Chloride 40 meq/Potassium Chloride 20 meq/ Potassium Phosphate 44 meq/ Calcium Gluconate 2.3 meq/Magnesium Sulfate 8 meq/ Multivitamins 10 ml/Chromium/ Copper/Manganese/ Zinc 1 ml/Amino Acids/Dextrose/ Purified Water 1,047.9462 ml @ 44 mls/hr [id number] IV 04/06/25 22:00 04/06/25 22:00 Cancel Sodium Chloride 10 ml QSHIFT@,22 IV 04/09/25 22:00 04/24/25 09:56 10 ML Fluconazole 100 ml @ 100 mls/hr DAILY IV 04/16/25 10:00 04/24/25 09:44 100 MLS/HR Vancomycin HCl 0 ml @ 0 mls/hr PER PHARMACY IV 04/16/25 12:15 Ipratropium [place] 0.5 mg Q6HR NEB 04/16/25 18:00 04/24/25 12:15 0.5 MG Levalbuterol HCl 1.25 mg Q6HR NEB 04/16/25 18:00 04/24/25 12:15 1.25 MG Enteral Nutritional Formula 1,000 ml 30ML/HR GT 04/18/25 09:15 04/23/25 04:57 1,000 ML Midazolam HCl 100 ml @ 1 mls/hr Q24H IV 04/22/25 15:45 Fentanyl Citrate 250 ml @ 2.5 mls/hr Q24H IV 04/22/25 15:45 04/24/25 06:14 5 MLS/HR Pantoprazole Sodium 40 mg DAILY IV 04/22/25 17:51 04/24/25 09:55 40 MG Meropenem 50 ml @ 17 mls/hr Q8HR IV 04/23/25 14:00 UNV Purified Water 200 ml Q6HR GT 04/23/25 18:00 04/23/25 23:57 200 ML Meropenem 50 ml @ 17 mls/hr Q12H IV 04/23/25 23:00 04/24/25 13:10 objective The patient is well-nourished and well-developed with no distress. MENTAL STATUS: Subjective CRANIAL NERVES: Pupils are round and reactive.There conjugated eye movement. No signs of facial weakness. Normal sensory and motor examination in bilateral trigeminal distribution SENSATION: Fine to light touch and pinprick MOTOR: Normal tone in the upper and lower extremity. Normal muscle bulk. No fasciculations. Moves the hands and feet slightly REFLEXES: Deep tendon reflexes are symmetrical. No pathological reflexes. CEREBELLAR/COORDINATION: Deferred GAIT/STATION: deferred. laboratory and microbiology Laboratory Tests 04/24/25 11:57 04/24/25 02:30 Test 04/24/25 02:30 Range/Units Serum Glucose 165 H 74-106 mg/dL Problem List Altered mental status, Hypoxic encephalopathy Metabolic encephalopathy Toxic encephalopathy Acute on chronic respiratory failure, reintubated on 04/15/2025 Pneumoniae, Leukocytosis/sepsis Anisocoria Etiology unclear Cachexia Assessment/Plan Monitoring Supportive treatment ICU Stabilize vitals p.r.n. Respiratory support p.r.n. Oxygen IV antibiotics DVT prophylaxis GI prophylaxis More recommendation per clinical course This medical document was created using an electronic medical record system with [employer] dictation system. Although this document has been carefully reviewed, there may still be some phonetic and typographical errors. These areas are purely typographical due to imperfections of the software programs, and do not reflect any compromise in the patient's medical care. Prognosis poor Dietary Evaluation Review Comments: 1) If patient remains NPO > 7 days, consider EN/TPN to meet at least 75% estimated daily needs 2) If gut is preferred, initiate Vital High Protein @ 40 mL/hr goal rate as tolerated. Flush with 50 mL free H2O Q6H. EN regimen will provide 960 kcals, 84g Pro, and 1003 mL free H2O (including TF flushes) per 24 hrs. Goal rate will meet ~ 95% estimated energy needs and ~ 93% estimated protein needs 3) Advance to cardiac diet when medically feasible, pending ST approval 4) Refer to outpatient RD for weight management 5) Follow-up with cardiology and pulmonology 6) Continue to monitor I&O, labs, and skin integrity Expected Outcomes/Goals: 1) patient to receive nutritional support within 7 days of NPO status 2) labs to improve 3) diet to advance 4) gradual wt gain 5) f/u in 2-3 days Plan discussed with: Other RAMAN LAWTON MD Apr 24, 2025 16:48
--- NOTE | 2025-04-24 23:51 | DVHPN2 ---
Consult Progress Note Objective vital signs Vital Sign Date Time Temp Pulse Resp B/P (MAP) Pulse Ox O2 Delivery O2 Flow Rate FiO2 04/24/25 22:11 100 18 107/59 (75) 100 35 04/24/25 18:00 Mechanical Ventilator+ 04/24/25 16:00 97.2 97.2 04/24/25 14:00 3 Total Intake and Output 04/23/25 04/23/25 04/24/25 15:00 23:00 07:00 Intake Total 177.5 ml 819 ml 296 ml Output Total 275 ml 280 ml Balance 177.5 ml 544 ml 16 ml medications Current Medications Medications Dose Ordered Sig/Guy Route Start Time Stop Time Status Last Admin Dose Admin Norepinephrine Bitartrate 250 ml @ 3.75 mls/hr Q24H IV 04/03/25 10:00 UNV Fat Emulsion Intravenous 50 ml/ Sodium Chloride 40 meq/Potassium Chloride 20 meq/ Potassium Phosphate 44 meq/ Calcium Gluconate 2.3 meq/Magnesium Sulfate 8 meq/ Multivitamins 10 ml/Chromium/ Copper/Manganese/ Zinc 1 ml/Amino Acids/Dextrose/ Purified Water 1,047.9462 ml @ 44 mls/hr [id number] IV 04/06/25 22:00 04/06/25 22:00 Cancel Sodium Chloride 10 ml QSHIFT@10,22 IV 04/09/25 22:00 04/24/25 23:25 10 ML Fluconazole 100 ml @ 100 mls/hr DAILY IV 04/16/25 10:00 04/24/25 09:44 100 MLS/HR Vancomycin HCl 0 ml @ 0 mls/hr PER PHARMACY IV 04/16/25 12:15 Ipratropium [place] 0.5 mg Q6HR NEB 04/16/25 18:00 04/24/25 18:41 0.5 MG Levalbuterol HCl 1.25 mg Q6HR NEB 04/16/25 18:00 04/24/25 18:41 1.25 MG Enteral Nutritional Formula 1,000 ml 30ML/HR GT 04/18/25 09:15 04/23/25 04:57 1,000 ML Midazolam HCl 100 ml @ 1 mls/hr Q24H IV 04/22/25 15:45 Fentanyl Citrate 250 ml @ 2.5 mls/hr Q24H IV 04/22/25 15:45 04/24/25 06:14 5 MLS/HR Pantoprazole Sodium 40 mg DAILY IV 04/22/25 17:51 04/24/25 09:55 40 MG Meropenem 50 ml @ 17 mls/hr Q8HR IV 04/23/25 14:00 UNV Purified Water 200 ml Q6HR GT 04/23/25 18:00 04/24/25 23:27 200 ML Meropenem 50 ml @ 17 mls/hr Q12H IV 04/23/25 23:00 04/24/25 23:24 17 MLS/HR laboratory and microbiology Laboratory Tests 04/24/25 11:57 04/24/25 02:30 Test 04/24/25 02:30 Range/Units Serum Glucose 165 H 74-106 mg/dL Problem List/Assessment/Plan Problem List/Assessment/Plan ASSESSMENT AND PLAN: ID Problem List: -Community-acquired pneumonia (CXR: patchy right > left opacities) -Septic shock (ICU transfer in the setting of pneumonia; BP 94/54 noted) -Acute on chronic respiratory failure with hypercapnia (pH 7.35, pCO2 83.1) requiring mechanical ventilation -Suspected COPD exacerbation related to pneumonia -Prolonged QTc (503 ms) fluoroquinolones avoided -Penicillin allergy (unknown reaction, since 2021) -Leukocytosis (WBC 22.5 K/L) -Anemia (Hgb 9.7 g/dL) -Hyponatremia (Na 133 mmol/L) -History of CHF, GERD, anxiety, hypertension, hyperlipidemia; chronic hypotension noted Assessment This is a 59 y.o. female with a past medical history of CHF, anxiety, COPD, GERD, hypertension, hyperlipidemia, and chronic hypotension who presents with shortness of breath and hypoxemia (desaturation to 70% on 6 L NC). ED CXR showed patchy right greater than left opacities favoring infection; admitted for pneumonia. Transferred to ICU for septic shock in the setting of pneumonia. Viral testing (influenza A/B, COVID-19) negative. UA without growth. Blood cultures no growth to date (04/05). ABG with hypercapnia (pH 7.35, pCO2 83.1). BNP 38.81. EKG with QTc 503 ms. Preliminary sputum culture with rare filamentous fungi (awaiting further results). The clinical picture is consistent with pneumonia with concurrent COPD exacerbation and hypercapnic respiratory failure requiring mechanical ventilation. 04/05: CXR with improved pneumonia, persistent fevers, improved levophed 04/06: prolonged qtc , fungi filamentous on bronchial wash 04/14: sp 7 days doxycycline, mrsa nares negative, can stop doxycycline 04/17: worsening leukocytosis, stool blood positive hb 6.8 04/23: sp 7 days course of vancomycin, off pressors on minimal vent, no evidence of MRSA infection, would stop Plan: - defer to gi and primary team for anemia workup - given fungal pneumonia, consider downtitration of steroid therapy, defer to pulmonology and manager food safety team -Antimicrobials: -stop vancomycin, continue meropenem - continue fluconazole for filamentous fungi. will fu on speciation and sensitivities -Avoid fluoroquinolones due to prolonged QTc. -Follow up sputum culture results; adjust therapy per susceptibilities. -Follow up blood cultures; currently no growth to date (04/05). -Respiratory: -Mechanical ventilation management per manager food safety team; current settings documented below. -Wean as tolerated to high-flow nasal cannula when appropriate. -COPD therapies per pulmonology: bronchodilators, systemic steroids, mucolytics. -Monitoring: -Monitor temperature curve; if persistent fevers, reassess antimicrobial coverage. -Repeat chest X-ray daily. -Maintain MAP > 65 mmHg; titrate vasoactive support as needed. -Monitor QTc; continue to avoid QT-prolonging agents where feasible. 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 -Diagnostics: -Recommend sputum culture (pending/follow-up). -Continue to monitor labs (CBC, BMP, lactate) and ABGs as clinically indicated. Authorized and Performed by: Gordon Coley Total critical care time: Approximately 76 minutes Due to a high probability of clinically significant, life threatening deterioration, the patient required my highest level of preparedness to intervene emergently and I personally spent this critical care time directly and personally managing the patient. This critical care time included obtaining a history; examining the patient; pulse oximetry; ordering and review of studies; arranging urgent treatment with development of a management plan; evaluation of patient's response to treatment; frequent reassessment; and, discussions with other providers. This critical care time was performed to assess and manage the high probability of imminent, life-threatening deterioration that could result in multi-organ failure. It was exclusive of separately billable procedures and treating other patients and teaching time. Isolation Precautions: Not provided in transcript. \ Physical Exam: General: NAD Neck: Supple. No masses. HEENT: PERRL. Normal lids and conjunctiva. Moist mucous membranes. Oropharynx without lesions, exudates or excessive erythema. Normal appearance of the external aspects of the nose and ears. Heart: Regular rhythm, normal rate. No murmur. No lower extremity edema. Lungs: Normal respiratory effort. Clear to auscultation bilaterally. Wheezes present. Patient is mechanically ventilated. Abdomen: Soft. Non-tender. Non-distended. No masses or abdominal hernia. Msk: No digital cyanosis. Normal strength and tone in all 4 limbs Skin: Warm and dry, no rashes. Neuro: Alert. No facial droop or slurred speech. Extra-ocular movements intact. Sensation intact to soft touch in all 4 limbs. Psych: Appropriate mood. Full affect. Oriented to person, place, time, and situation. Dietary Evaluation Review Comments: 1) If patient remains NPO > 7 days, consider EN/TPN to meet at least 75% estimated daily needs 2) If gut is preferred, initiate Vital High Protein @ 40 mL/hr goal rate as tolerated. Flush with 50 mL free H2O Q6H. EN regimen will provide 960 kcals, 84g Pro, and 1003 mL free H2O (including TF flushes) per 24 hrs. Goal rate will meet ~ 95% estimated energy needs and ~ 93% estimated protein needs 3) Advance to cardiac diet when medically feasible, pending ST approval 4) Refer to outpatient RD for weight management 5) Follow-up with cardiology and pulmonology 6) Continue to monitor I&O, labs, and skin integrity Expected Outcomes/Goals: 1) patient to receive nutritional support within 7 days of NPO status 2) labs to improve 3) diet to advance 4) gradual wt gain 5) f/u in 2-3 days GORDON COLEY MD Apr 24, 2025 23:51
[2025-04-25] VITALS (110 sets, daily range): BP systolic 91–131; BP diastolic 43–86; PULSE 75–117; RESP 12–22; TEMP 97.3–98.2; O2SAT 91–100
[2025-04-25 04:36] LABS: Hemoglobin 9.6 g/dL (12.2-16.2); Nucleated Red Blood Cells % 0.0 %
[2025-04-25 04:38] LABS: Hematocrit 28.4 % (36.0-46.0); Mean Corpuscular Hemoglobin 31.6 pg (28.0-32.0); Mean Corpuscular Volume 93.0 fL (80.0-100.0)
[2025-04-25 04:56] LABS: Alanine Aminotransferase 34 U/L (7-40); Alkaline Phosphatase 111 U/L (46-116); Anion Gap 12 (5-15); BUN/Creatinine Ratio 61.3 (10.0-20.0); Carbon Dioxide 24 mmol/L (20-31); Glucose 77 mg/dL (74-106); Potassium 3.9 mmol/L (3.5-5.1)
[2025-04-25 04:57] LABS: Bilirubin, Total 0.6 mg/dL (0.2-1.0)
[2025-04-25 05:05] LABS: Albumin 2.4 g/dL (3.2-4.8); Blood Urea Nitrogen 65 mg/dL (9-23); Calcium 8.0 mg/dL (8.7-10.4); Chloride 112 mmol/L (98-107); Sodium 148 mmol/L (136-145); Total Protein 4.0 g/dL (5.7-8.2)
--- NOTE | 2025-04-25 05:50 | DVH ---
CHEST RADIOGRAPH Indication: traceostomy Technique: 1 view Comparison: XY CHEST PORTABLE on DOS: 04/24/25, XY CHEST XRAY 1 VIEW on DOS: 04/24/25, XY CHEST XRAY 1 VIEW on DOS: 04/23/25, XY CHEST XRAY 1 VIEW on DOS: 04/22/25, XY CHEST XRAY 1 VIEW on DOS: 04/21/25 FINDINGS: Lines and Tubes: Unchanged. Lungs/Pleura: Unchanged. Cardiomediastinum: Unchanged. Other: Unchanged osseous structures. IMPRESSION: 1. No significant change from the previous study. Stable support devices. Hazy bilateral infrahilar opacities with possible small pleural effusions.
[2025-04-25 07:37] LABS: Base Excess -2.5 mmol/L (-2.0-3.0)
--- NOTE | 2025-04-25 11:21 | DVHPN2 ---
Progress Note Date Seen: Apr 25, 2025 Medical Necessity Reason Pt with a Central, PICC or Fol: Yes The following are medically ne: Central Line, Chin Catheter Objective vital signs Vital Sign Date Time Temp Pulse Resp B/P (MAP) Pulse Ox O2 Delivery O2 Flow Rate FiO2 04/25/25 09:37 75 20 106/49 (68) 94 35 04/25/25 08:00 Mechanical Ventilator+ 04/25/25 04:00 98.2 98.2 04/24/25 14:00 3 Total Intake and Output 04/24/25 04/24/25 04/25/25 15:00 23:00 07:00 Intake Total 265.0 ml 160.0 ml 502.5 ml Output Total 100 ml 300 ml Balance 265.0 ml 60.0 ml 202.5 ml medications Current Medications Medications Dose Ordered Sig/Guy Route Start Time Stop Time Status Last Admin Dose Admin Norepinephrine Bitartrate 250 ml @ 3.75 mls/hr Q24H IV 04/03/25 10:00 UNV Fat Emulsion Intravenous 50 ml/ Sodium Chloride 40 meq/Potassium Chloride 20 meq/ Potassium Phosphate 44 meq/ Calcium Gluconate 2.3 meq/Magnesium Sulfate 8 meq/ Multivitamins 10 ml/Chromium/ Copper/Manganese/ Zinc 1 ml/Amino Acids/Dextrose/ Purified Water 1,047.9462 ml @ 44 mls/hr [id number] IV 04/06/25 22:00 04/06/25 22:00 Cancel Sodium Chloride 10 ml QSHIFT@10,22 IV 04/09/25 22:00 04/25/25 09:54 10 ML Fluconazole 100 ml @ 100 mls/hr DAILY IV 04/16/25 10:00 04/25/25 09:51 100 MLS/HR Vancomycin HCl 0 ml @ 0 mls/hr PER PHARMACY IV 04/16/25 12:15 Ipratropium [place] 0.5 mg Q6HR NEB 04/16/25 18:00 04/25/25 05:53 0.5 MG Levalbuterol HCl 1.25 mg Q6HR NEB 04/16/25 18:00 04/25/25 05:53 1.25 MG Enteral Nutritional Formula 1,000 ml 30ML/HR GT 04/18/25 09:15 04/23/25 04:57 1,000 ML Midazolam HCl 100 ml @ 1 mls/hr Q24H IV 04/22/25 15:45 Fentanyl Citrate 250 ml @ 2.5 mls/hr Q24H IV 04/22/25 15:45 04/24/25 06:14 5 MLS/HR Pantoprazole Sodium 40 mg DAILY IV 04/22/25 17:51 04/25/25 09:54 40 MG Meropenem 50 ml @ 17 mls/hr Q8HR IV 04/23/25 14:00 UNV Purified Water 200 ml Q6HR GT 04/23/25 18:00 04/25/25 06:01 200 ML Meropenem 50 ml @ 17 mls/hr Q12H IV 04/23/25 23:00 04/24/25 23:24 17 MLS/HR laboratory and microbiology Laboratory Tests 04/25/25 03:10 Test 04/25/25 03:10 Range/Units Serum Glucose 77 74-106 mg/dL Problem List/Assessment/Plan Problem List/Assessment/Plan 04/25/25 minimal bloody drainage from tracheostomy site, cxr shows tracheostomy in good position ,cxr shows bot lungs fully expanded, I will sign off, please recall if needed Plan discussed with: Other Dietary Evaluation Review Comments: 1) If patient remains NPO > 7 days, consider EN/TPN to meet at least 75% estimated daily needs 2) If gut is preferred, initiate Vital High Protein @ 40 mL/hr goal rate as tolerated. Flush with 50 mL free H2O Q6H. EN regimen will provide 960 kcals, 84g Pro, and 1003 mL free H2O (including TF flushes) per 24 hrs. Goal rate will meet ~ 95% estimated energy needs and ~ 93% estimated protein needs 3) Advance to cardiac diet when medically feasible, pending ST approval 4) Refer to outpatient RD for weight management 5) Follow-up with cardiology and pulmonology 6) Continue to monitor I&O, labs, and skin integrity Expected Outcomes/Goals: 1) patient to receive nutritional support within 7 days of NPO status 2) labs to improve 3) diet to advance 4) gradual wt gain 5) f/u in 2-3 days JOVANY REINA MD Apr 25, 2025 11:21
--- NOTE | 2025-04-25 15:52 | DVHPNRES ---
Progress Note Date Seen: Apr 25, 2025 Resident Creating Document: IHSAN DSOUZA RESIDENT Medical Necessity Reason Pt with a Central, PICC or Fol: Yes The following are medically ne: Central Line, Chin Catheter Subjective Review of Systems ubjective Review of Systems Patient is a 59 year old female with past medical history of CHF, Chronic obstructive pulmonary disease, GERD, hyperlipidemia who presented to hospital with chief complaints of shortness of breath. As per daughter patient had increased work of breathing, uses home oxygen 2 L, which was increased to 6 L at home for which saturation improved to 94%. Patient in the ER became altered and was intubated on 04/03/25. as per daughter echocardiogram showed 50% in [facility]. x-ray showed Stable chronic appearing bilateral interstitial pulmonary markings and mild bibasilar pulmonary airspace disease. Past surgical history: Tonsillectomy family history: reviewed, noncontributory Social history: per daughter patient has smoked since she was 15 years old and nicotine vape, used methamphetamine 04/11/25: Patient seen in ICU. on cpap trial, on pressure support control, pulling 400 ml volume Psupport 10 and Peep 5 mm hg. plan for cpap trial tomorrow. 04/12/25: Patient seen in ICU. CPAP trial failed. NIf -13. we will try again tomorrow. 04/13/25: Patient seen in the ICU. patient was successfully extubated today. We will keep monitoring oxygen saturation, or possible need for BiPAP. Patient's daughter at bedside was explained about patient's condition and prognosis. 04/14/2025: Patient seen at the ICU. Patient was successfully extubated yesterday. Patient is on 2 L oxygen. physical therapy tomorrow. Patient's passed swallow eval and diet was switched to soft mechanical diet. 04/15/25: Patient seen at the ICU. Patient is on 3 L oxygen. Patients diet changed to purred diet. discussion done with Daughter about patients condition and recommended discharge to snf. Consulted SS for SNF placement. Added IV fluconazole, and cefepime. Patient had a bowel movement . 04/16/2025: patient seen in ICU. patient was intubated yesterday due to possible aspiration, atelectasis. patient is on levo 14, [place] 18, Versed 4, fentanyl 100, ventilator settings at FiO2 80%, peep of 5, VT 400, respiratory rate 22. Added vancomycin , methylprednisone. Ordered 2D echo, Patient's condition was discussed with daughter and possible regarding of tracheostomy. 04/17/2025 Patient seen in ICU. Patint is intubated, sedated echo still pending, today patient's hemoglobin dropped from 9.97.7 and platelets also dropped, held Lovenox, stool occult blood ordered. 04/18/2025: Patient seen in ICU. Continued to be on ventilation. Patient was received 1 unit of PRBCs yesterday evening. Has been hold anticoagulation. Patient continued to have bilateral wheezing, continue racing steroids, antibiotics, breathing treatment. Continue monitoring. No any other night complaints. 04/19/2025: Patient seen in ICU, continued on the ventilator, patient today does not have any wheezing, patient is continued on antibiotics, breathing treatment. CPAP trial tomorrow. Discussion done with the daughter regarding tracheostomy Tomorrow. Patient is on vasopressor, sedation. 04/20/25: Patient seen in ICU, on ventilator, patient today is opening her eyes and is following commands. CPAP tomorrow morning. 04/21/2025: Patient seen in ICU, on ventilator, off pressors, sedation,. Patient is opening her eyes, following commands. CPAP trial tomorrow morning. Possible tracheostomy to be done. 04/22/2025: Patient seen in ICU, of pressors, of sedation, patient is on ventilator,. CPAP shock done today, planning for tracheostomy. 04/23/2025: Patient seen in ICU, off pressors, off sedation. patient failed CPAP so planning for tracheostomy tomorrow. Discussion done with daughter regarding tracheostomy and daughter has agreed. Cefepime changed to meropenem. Monitor platelets. : Patient seen in ICU, is off pressors of sedation. discussion done with daughter yesterday about tracheostomy and she has agreed. Platelets trended down so 2 bags of platelets were ordered. Tracheostomy done. . Patient is able to open eyes, following commands. Discontinued Solu medrol. 04/25/25 s/p trachestomy on day 2, on NG tube feedings will start CPAP trial and trach collar trial Objective vital signs Vital Sign Date Time Temp Pulse Resp B/P (MAP) Pulse Ox O2 Delivery O2 Flow Rate FiO2 04/25/25 14:45 105 18 126/57 (80) 100 04/25/25 14:33 35 04/25/25 14:00 Mechanical Ventilator+ 04/25/25 04:00 98.2 98.2 04/24/25 14:00 3 Total Intake and Output 04/24/25 04/24/25 04/25/25 15:00 23:00 07:00 Intake Total 265.0 ml 160.0 ml 510.0 ml Output Total 100 ml 300 ml Balance 265.0 ml 60.0 ml 210.0 ml medications Current Medications Medications Dose Ordered Sig/Guy Route Start Time Stop Time Status Last Admin Dose Admin Norepinephrine Bitartrate 250 ml @ 3.75 mls/hr Q24H IV 04/03/25 10:00 UNV Fat Emulsion Intravenous 50 ml/ Sodium Chloride 40 meq/Potassium Chloride 20 meq/ Potassium Phosphate 44 meq/ Calcium Gluconate 2.3 meq/Magnesium Sulfate 8 meq/ Multivitamins 10 ml/Chromium/ Copper/Manganese/ Zinc 1 ml/Amino Acids/Dextrose/ Purified Water 1,047.9462 ml @ 44 mls/hr [id number] IV 04/06/25 22:00 04/06/25 22:00 Cancel Sodium Chloride 10 ml QSHIFT@10,22 IV 04/09/25 22:00 04/25/25 09:54 10 ML Fluconazole 100 ml @ 100 mls/hr DAILY IV 04/16/25 10:00 04/25/25 09:51 100 MLS/HR Vancomycin HCl 0 ml @ 0 mls/hr PER PHARMACY IV 04/16/25 12:15 Ipratropium [place] 0.5 mg Q6HR NEB 04/16/25 18:00 04/25/25 11:35 0.5 MG Levalbuterol HCl 1.25 mg Q6HR NEB 04/16/25 18:00 04/25/25 11:35 1.25 MG Enteral Nutritional Formula 1,000 ml 30ML/HR GT 04/18/25 09:15 04/23/25 04:57 1,000 ML Midazolam HCl 100 ml @ 1 mls/hr Q24H IV 04/22/25 15:45 Fentanyl Citrate 250 ml @ 2.5 mls/hr Q24H IV 04/22/25 15:45 04/25/25 11:25 7.5 MLS/HR Pantoprazole Sodium 40 mg DAILY IV 04/22/25 17:51 04/25/25 09:54 40 MG Meropenem 50 ml @ 17 mls/hr Q8HR IV 04/23/25 14:00 UNV Purified Water 200 ml Q6HR GT 04/23/25 18:00 04/25/25 06:01 200 ML Meropenem 50 ml @ 17 mls/hr Q12H IV 04/23/25 23:00 04/25/25 11:27 17 MLS/HR Examination General: on tracheostomy with mech vent HEENT: Normocephalic, atraumatic, moist mucous membranes Respiratory/pulmonary: on tracheostomy with mech vent Cardiovascular: Normal heart sounds S1 and S2 with no associated murmurs Abdomen: Abdomen nondistended, there is no pain to palpation in any of the abdominal quadrants, no palpable masses. Extremities: There is no peripheral edema present at the lower extremities. Peripheral Pulses: 3+ Radial (R). 3+ Radial (L). 3+ Dorsalis pedis (R). 3+ Dorsalis pedis(L) Skin: Multiple skin tears, no sacral wound present, Neurological: Pupils reactive, gag and cough reflex present laboratory and microbiology Laboratory Tests 04/25/25 03:10 Test 04/25/25 03:10 Range/Units Serum Glucose 77 74-106 mg/dL Microbiology Date/Time Source Procedure Growth Status 04/15/25 20:17 Sputum Gram Stain - Final Complete 04/15/25 20:17 Sputum Respiratory Culture - Final Complete 04/12/25 22:58 Stool Stool Culture - Final Complete 04/12/25 22:58 Stool Shiga Toxin I & II - Final Complete 04/05/25 08:00 Nose MRSA Screen - Final Complete 04/02/25 20:04 Blood Blood Culture - Final NO GROWTH AFTER 5 DAYS OF INCUBATION. Complete Labs and/or images reviewed: Labs reviewed by me, Image(s) reviewed by me Problem List/Assessment/Plan Problem List/Assessment/Plan Problem List/Assessment/Plan Neurology Acute metabolic/hypoxic encephalopathy likely due to COPD exacerbation, improving - ventilator setting: on AC mode; RR 20,VT 350, Fio2-35%, PEEP-5 , on t-tube - neurology on board Cardiology Chronic diastolic Congestive heart failure - ordered 2D echo, -EF of 35% Respiratory Sepsis likely due to below Acute on chronic hypoxic respiratory failure secondary to acute COPD exacerbation/ pneumonia s/p tracheostomy Acute G +/- Bacterial PNA possible atelectasis - continue bronchodilators, - continue Solu-Medrol 40 mg - chest xray: Slight interval advancement of the endotracheal tube such that the tip now projects approximately 3.9 cm above the level of the vani. Remaining lines and tubes unchanged. Stable chronic appearing bilateral interstitial pulmonary markings and mild bibasilar pulmonary airspace disease - IV metronidazole, azithromycin changed to doxycycline, cefepime, micafungin - Fluconazole, cefepime,(04/15), vancomycin(04/16), cefepime changed to meropenem(04/23) - respiratory culture -showed for filamentous fungi - Chest CT showed lower lobe consolidation, multiple small foci, severe centrilobar Emphysema. s/p tracheostomy will order CPAP trial and T collar trial GI/Liver Cachexia BMI 15.3 Severe protein malnutrition Slow transit constipation - Miralax Hematology Anemia of chronic disease Iron deficiency anemia - monitor hemoglobin Renal Electrolytes hyponatremia hypocalcemia hypophosphatemia - replete electrolytes - Monitor electrolytes Lines/tubes/devices Airway: Intubated via ETT on 04/03/25 , extubated on 04/13/25, Re intubated (04/15) Tracheostomy (04/24) Vascular access: Central line Rt IJ 04/05 and Rt femoral 04/03 Diet: DVT prophylaxis: Lovenox(held due to low hemoglobin) GI prophylaxis: Protonix Goals of car discussed with family for more than 29 minutes : Full code critical time spent more than 84 minutes excluding procedures Case discussed with Dr. Lancaster Plan discussed with: Other My Orders My Orders Orders - IHSAN DSOUZA RESIDENT Procedure Category Date Status Time Communication Order ORDERS 04/25/25 Transmitted 12:15 Communication Order ORDERS 04/25/25 Transmitted 13:57 Dietary Evaluation Review Comments: 1) If patient remains NPO > 7 days, consider EN/TPN to meet at least 75% estimated daily needs 2) If gut is preferred, initiate Vital High Protein @ 40 mL/hr goal rate as tolerated. Flush with 50 mL free H2O Q6H. EN regimen will provide 960 kcals, 84g Pro, and 1003 mL free H2O (including TF flushes) per 24 hrs. Goal rate will meet ~ 95% estimated energy needs and ~ 93% estimated protein needs 3) Advance to cardiac diet when medically feasible, pending ST approval 4) Refer to outpatient RD for weight management 5) Follow-up with cardiology and pulmonology 6) Continue to monitor I&O, labs, and skin integrity Expected Outcomes/Goals: 1) patient to receive nutritional support within 7 days of NPO status 2) labs to improve 3) diet to advance 4) gradual wt gain 5) f/u in 2-3 days IHSAN DSOUZA RESIDENT Apr 25, 2025 15:52
[2025-04-25 20:27] LABS: Hematocrit 27.9 % (36.0-46.0); Hemoglobin 9.3 g/dL (12.2-16.2); Mean Corpuscular Hemoglobin 31.3 pg (28.0-32.0); Mean Corpuscular Volume 94.0 fL (80.0-100.0); Nucleated Red Blood Cells % 0.0 %
[2025-04-25 20:56] LABS: Potassium 4.4 mmol/L (3.5-5.1)
[2025-04-25 20:57] LABS: Anion Gap 11 (5-15); Carbon Dioxide 23 mmol/L (20-31)
[2025-04-25 21:02] LABS: BUN/Creatinine Ratio 41.0 (10.0-20.0); Glucose 84 mg/dL (74-106)
[2025-04-25 21:12] LABS: Blood Urea Nitrogen 48 mg/dL (9-23); Calcium 7.9 mg/dL (8.7-10.4); Chloride 114 mmol/L (98-107); Sodium 148 mmol/L (136-145)
[2025-04-26] VITALS (107 sets, daily range): BP systolic 76–151; BP diastolic 40–88; PULSE 93–122; RESP 12–23; TEMP 97.5–98.9; O2SAT 32–100
--- NOTE | 2025-04-26 05:58 | DVH ---
CHEST RADIOGRAPH Indication: sob Technique: 1 view Comparison: XY CHEST XRAY 1 VIEW on DOS: 04/25/25, XY CHEST PORTABLE on DOS: 04/24/25, XY CHEST XRAY 1 VIEW on DOS: 04/24/25, XY CHEST XRAY 1 VIEW on DOS: 04/23/25, XY CHEST XRAY 1 VIEW on DOS: 04/22/25 FINDINGS: Lines and Tubes: Unchanged. Lungs/Pleura: Unchanged. Cardiomediastinum: Unchanged. Other: Unchanged osseous structures. IMPRESSION: 1. No significant change from the previous day. Stable support devices. Bilateral apical and basilar hazy opacities with suspected small pleural effusions.
[2025-04-26 10:11] LABS: Base Excess -2.8 mmol/L (-2.0-3.0)
[2025-04-26] MEDS: MORPHINE SULFATE INJ 2 MG/ml SYRG IV PRN (11:04)
--- NOTE | 2025-04-26 13:20 | DVHPNRES ---
Progress Note Date Seen: Apr 26, 2025 Resident Creating Document: CRICKET GUAMAN RESIDENT Medical Necessity Reason Pt with a Central, PICC or Fol: Yes The following are medically ne: Central Line, Chin Catheter Subjective Review of Systems Patient is a 59 year old female with past medical history of CHF, Chronic obstructive pulmonary disease, GERD, hyperlipidemia who presented to hospital with chief complaints of shortness of breath. As per daughter patient had increased work of breathing, uses home oxygen 2 L, which was increased to 6 L at home for which saturation improved to 94%. Patient in the ER became altered and was intubated on 04/03/25. as per daughter echocardiogram showed 50% in [facility]. x-ray showed Stable chronic appearing bilateral interstitial pulmonary markings and mild bibasilar pulmonary airspace disease. Past surgical history: Tonsillectomy family history: reviewed, noncontributory Social history: per daughter patient has smoked since she was 15 years old and nicotine vape, used methamphetamine 04/11/25: Patient seen in ICU. on cpap trial, on pressure support control, pulling 400 ml volume Psupport 10 and Peep 5 mm hg. plan for cpap trial tomorrow. 04/12/25: Patient seen in ICU. CPAP trial failed. NIf -13. we will try again tomorrow. 04/13/25: Patient seen in the ICU. patient was successfully extubated today. We will keep monitoring oxygen saturation, or possible need for BiPAP. Patient's daughter at bedside was explained about patient's condition and prognosis. 04/14/2025: Patient seen at the ICU. Patient was successfully extubated yesterday. Patient is on 2 L oxygen. physical therapy tomorrow. Patient's passed swallow eval and diet was switched to soft mechanical diet. 04/15/25: Patient seen at the ICU. Patient is on 3 L oxygen. Patients diet changed to purred diet. discussion done with Daughter about patients condition and recommended discharge to snf. Consulted SS for SNF placement. Added IV fluconazole, and cefepime. Patient had a bowel movement . 04/16/2025: patient seen in ICU. patient was intubated yesterday due to possible aspiration, atelectasis. patient is on levo 14, winston 18, Versed 4, fentanyl 100, ventilator settings at FiO2 80%, peep of 5, VT 400, respiratory rate 22. Added vancomycin , methylprednisone. Ordered 2D echo, Patient's condition was discussed with daughter and possible regarding of tracheostomy. 04/17/2025 Patient seen in ICU. Patint is intubated, sedated echo still pending, today patient's hemoglobin dropped from 9.97.7 and platelets also dropped, held Lovenox, stool occult blood ordered. 04/18/2025: Patient seen in ICU. Continued to be on ventilation. Patient was received 1 unit of PRBCs yesterday evening. Has been hold anticoagulation. Patient continued to have bilateral wheezing, continue racing steroids, antibiotics, breathing treatment. Continue monitoring. No any other night complaints. 04/19/2025: Patient seen in ICU, continued on the ventilator, patient today does not have any wheezing, patient is continued on antibiotics, breathing treatment. CPAP trial tomorrow. Discussion done with the daughter regarding tracheostomy Tomorrow. Patient is on vasopressor, sedation. 04/20/25: Patient seen in ICU, on ventilator, patient today is opening her eyes and is following commands. CPAP tomorrow morning. 04/21/2025: Patient seen in ICU, on ventilator, off pressors, sedation,. Patient is opening her eyes, following commands. CPAP trial tomorrow morning. Possible tracheostomy to be done. 04/22/2025: Patient seen in ICU, of pressors, of sedation, patient is on ventilator,. CPAP shock done today, planning for tracheostomy. 04/23/2025: Patient seen in ICU, off pressors, off sedation. patient failed CPAP so planning for tracheostomy tomorrow. Discussion done with daughter regarding tracheostomy and daughter has agreed. Cefepime changed to meropenem. Monitor platelets. : Patient seen in ICU, is off pressors of sedation. discussion done with daughter yesterday about tracheostomy and she has agreed. Platelets trended down so 2 bags of platelets were ordered. Tracheostomy done. . Patient is able to open eyes, following commands. Discontinued Solu medrol. 04/25/25 s/p trachestomy on day 2, on NG tube feedings will start CPAP trial and trach collar trial : Patient seen in ICU, off pressors. She is able to open her eyes today she did complain of pain in the throat 1 mg morphine given PRN patient is on trach collar trial, Tolerating well. WBC still high. Objective vital signs Vital Sign Date Time Temp Pulse Resp B/P (MAP) Pulse Ox O2 Delivery O2 Flow Rate FiO2 04/26/25 12:30 119 15 150/81 (104) 95 04/26/25 12:00 Trach Collar 12 40 40 04/26/25 03:45 98.9 98.9 Total Intake and Output 04/25/25 04/25/25 04/26/25 15:00 23:00 07:00 Intake Total 217.5 ml 67.5 ml 615.0 ml Output Total 300 ml 300 ml Balance 217.5 ml -232.5 ml 315.0 ml medications Current Medications Medications Dose Ordered Sig/Guy Route Start Time Stop Time Status Last Admin Dose Admin Norepinephrine Bitartrate 250 ml @ 3.75 mls/hr Q24H IV 04/03/25 10:00 UNV Fat Emulsion Intravenous 50 ml/ Sodium Chloride 40 meq/Potassium Chloride 20 meq/ Potassium Phosphate 44 meq/ Calcium Gluconate 2.3 meq/Magnesium Sulfate 8 meq/ Multivitamins 10 ml/Chromium/ Copper/Manganese/ Zinc 1 ml/Amino Acids/Dextrose/ Purified Water 1,047.9462 ml @ 44 mls/hr [id number] IV 04/06/25 22:00 04/06/25 22:00 Cancel Sodium Chloride 10 ml QSHIFT@10,22 IV 04/09/25 22:00 04/26/25 09:56 10 ML Fluconazole 100 ml @ 100 mls/hr DAILY IV 04/16/25 10:00 04/26/25 09:55 100 MLS/HR Vancomycin HCl 0 ml @ 0 mls/hr PER PHARMACY IV 04/16/25 12:15 Cancel Ipratropium [place] 0.5 mg Q6HR NEB 04/16/25 18:00 04/26/25 11:18 0.5 MG Levalbuterol HCl 1.25 mg Q6HR NEB 04/16/25 18:00 04/26/25 11:18 1.25 MG Enteral Nutritional Formula 1,000 ml 30ML/HR GT 04/18/25 09:15 04/23/25 04:57 1,000 ML Midazolam HCl 100 ml @ 1 mls/hr Q24H IV 04/22/25 15:45 Fentanyl Citrate 250 ml @ 2.5 mls/hr Q24H IV 04/22/25 15:45 04/25/25 11:25 7.5 MLS/HR Pantoprazole Sodium 40 mg DAILY IV 04/22/25 17:51 04/26/25 09:55 40 MG Meropenem 50 ml @ 17 mls/hr Q8HR IV 04/23/25 14:00 UNV Purified Water 200 ml Q6HR GT 04/23/25 18:00 04/26/25 12:25 200 ML Meropenem 50 ml @ 17 mls/hr Q12H IV 04/23/25 23:00 04/26/25 11:11 17 MLS/HR Morphine Sulfate 1 mg Q6HP PRN IV 04/26/25 10:30 04/26/25 11:04 1 MG Examination General: on tracheostomy with mech vent HEENT: Normocephalic, atraumatic, moist mucous membranes Respiratory/pulmonary: on tracheostomy with mech vent Cardiovascular: Normal heart sounds S1 and S2 with no associated murmurs Abdomen: Abdomen nondistended, there is no pain to palpation in any of the abdominal quadrants, no palpable masses. Extremities: There is no peripheral edema present at the lower extremities. Peripheral Pulses: 3+ Radial (R). 3+ Radial (L). 3+ Dorsalis pedis (R). 3+ Dorsalis pedis(L) Skin: Multiple skin tears, no sacral wound present, Neurological: Pupils reactive, gag and cough reflex pr laboratory and microbiology Laboratory Tests 04/25/25 20:00 Test 04/25/25 20:00 Range/Units Serum Glucose 84 74-106 mg/dL Microbiology Date/Time Source Procedure Growth Status 04/15/25 20:17 Sputum Gram Stain - Final Complete 04/15/25 20:17 Sputum Respiratory Culture - Final Complete 04/12/25 22:58 Stool Stool Culture - Final Complete 04/12/25 22:58 Stool Shiga Toxin I & II - Final Complete 04/05/25 08:00 Nose MRSA Screen - Final Complete 04/02/25 20:04 Blood Blood Culture - Final NO GROWTH AFTER 5 DAYS OF INCUBATION. Complete Problem List/Assessment/Plan Problem List/Assessment/Plan Neurology Acute metabolic/hypoxic encephalopathy likely due to COPD exacerbation - Mechanically ventilated, sedated: RASS score -3 - ventilator setting: on AC mode; RR 20,VT 350, Fio2-35%, PEEP-5 - neurology on board Cardiology Chronic diastolic Congestive heart failure - ordered 2D echo, -EF of 35% Respiratory Sepsis likely due to below Acute on chronic hypoxic respiratory failure secondary to acute COPD exacerbation/ pneumonia Acute G +/- Bacterial PNA possible atelectasis - continue bronchodilators, - continue Solu-Medrol 40 mg - chest xray: Slight interval advancement of the endotracheal tube such that the tip now projects approximately 3.9 cm above the level of the vani. Remaining lines and tubes unchanged. Stable chronic appearing bilateral interstitial pulmonary markings and mild bibasilar pulmonary airspace disease - IV metronidazole, azithromycin changed to doxycycline, cefepime, micafungin - Fluconazole, cefepime,(04/15), vancomycin(04/16), cefepime changed to meropenem(04/23) - respiratory culture -showed for filamentous fungi - Chest CT showed lower lobe consolidation, multiple small foci, severe centrilobar Emphysema. GI/Liver Cachexia BMI 15.3 Severe protein malnutrition Slow transit constipation - Miralax Hematology Anemia of chronic disease Iron deficiency anemia - monitor hemoglobin Renal Electrolytes hyponatremia hypocalcemia hypophosphatemia - replete electrolytes - Monitor electrolytes Lines/tubes/devices Airway: Intubated via ETT on 04/03/25 , extubated on 04/13/25, Re intubated (04/15) Tracheostomy (04/24) Vascular access: Central line Rt IJ 04/05 and Rt femoral 04/03 Drips: Fentanyl, midazolam Diet: DVT prophylaxis: Lovenox(held due to low hemoglobin) GI prophylaxis: Protonix Great discussion taken place with Daughter for 37 mins about patients condition and poor prognosis, and possible Tracheostomy. Goals of car discussed with family for more than 29 minutes : Full code Care plan updated to the Daughter, critical time spent more than 84 minutes excluding procedures Case discussed with Dr. Lancaster , RN Plan discussed with: Daughter My Orders My Orders Orders - CRICKET GUAMAN RESIDENT Procedure Category Date Status Time Abg W/ Co-Ox RT 04/26/25 Logged 06:00 Morphine Sulfate PHA 04/26/25 In Process Injection 10:30 Dietary Evaluation Review Comments: 1) If patient remains NPO > 7 days, consider EN/TPN to meet at least 75% estimated daily needs 2) If gut is preferred, initiate Vital High Protein @ 40 mL/hr goal rate as tolerated. Flush with 50 mL free H2O Q6H. EN regimen will provide 960 kcals, 84g Pro, and 1003 mL free H2O (including TF flushes) per 24 hrs. Goal rate will meet ~ 95% estimated energy needs and ~ 93% estimated protein needs 3) Advance to cardiac diet when medically feasible, pending ST approval 4) Refer to outpatient RD for weight management 5) Follow-up with cardiology and pulmonology 6) Continue to monitor I&O, labs, and skin integrity Expected Outcomes/Goals: 1) patient to receive nutritional support within 7 days of NPO status 2) labs to improve 3) diet to advance 4) gradual wt gain 5) f/u in 2-3 days CRICKET GUAMAN RESIDENT Apr 26, 2025 13:20
[2025-04-26] MEDS: POLYETHYLENE GLYCOL 17 GM PWDR PO ONE (18:37)
--- NOTE | 2025-04-26 18:44 | DVHPN2 ---
Progress Note - Dictate Date Seen: Apr 26, 2025 Medical Necessity Reason Pt with a Central, PICC or Fol: Yes The following are medically ne: Central Line, Chin Catheter Subjective Ms. Cedeno is a 59 years old female with a history of hypotension, dyslipidemia, congestive heart failure, COPD, GERD, anxiety, she was brought to the [facility] on 03/30/2025 with a chief complaint of shortness breath. She choked when she was eating dinner and reintubated on 04/15/2025 I have seen and examined the patient in the ICU, she is awake, follows verbal commands, he moves the arms and legs Pupil size: In the morning on 04/05/2025: Equal. Early afternoon: UPON REASSESSMENT, PUPILS WERE UNEQUAL. LEFT PUPIL IS AT 5 AND RIGHT PUPIL AT 3 AND SLUGGISH REACTION TO LIGHT. MD MCPHERSON NOTIFIED AND NEW ORDERS RECEIVED FOR STAT HEAD CT AND NEUROLOGIST CONSULT. 04/06/2025: Rt: 3, Lt: 3-4. 04/07/25: Rt: 2mm, Lt: 3mm 04/08/2025: Rt: 2mm, Lt: 3mm 04/08/2025: Rt: 2mm, Lt: 2mm 04/11/2025: Rt: 2mm, Lt: 4mm 04/12/2025: Rt: 2mm, Lt: 4mm 04/13/2025: Rt: 2mm, Lt: 4mm 04/14/2025: Rt: 2mm, Lt: 4mm 04/16/2025: Pupil size about 2-3 mm, right-sided slightly bigger 04/17/2025: Almost the same size, possibly left side bigger 04/18/2025: Small pupils, with the left-sided slightly bigger 04/19/2025: very small and looks symmetric 04/20/2025: Rt: 2mm, Lt: 2-3mm 04/21/2025: Rt: 2mm, Lt: 4mm 04/22/2025: Rt: 2mm, Lt: 4mm 04/23/2025: Rt: 2mm, Lt: 4mm 04/24/2025: 4 mm, left side slightly bigger 04/26/2025: Rt: 2-3 mm, Lt: 5 mm Blood culture, 04/02/2025: Negative UDS, 04/02/2025: Negative Plasma alcohol, 04/02/2025: <3 Urinalysis, 04/02/2025: WBC: 1, urine leukocyte esterase: Negative ABG, 04/05/2025: Carbon dioxide retention WBC/HB/PLT/MCV, 04/02/2025: 22.5/9.7/236/95.6, 04/03/2025: 71.9/10.8/245/96.3, 04/04/2025: 26.6/9.8/251/95.5, 04/06/2025: 14.5/8.8/278/93.6, 04/08/2025: 15.5/8.9/234/93.6. 04/17/25: 17.4/6.8/3/95.8, 04/18/2025: 20.1/10.5/88/91.3 CMP, 04/04/2025: Unremarkable Chest x-ray, 04/02/2025: Patchy [id number]-left bibasilar opacities, favoring infection Chest x-ray 04/05/2025: 1. Endotracheal tube 5.8 cm above the vani 2. Right internal jugular catheter in place at the cavoatrial junction. 3. Enteric tube below the left diaphragm less likely in the stomach. 4. IMPROVING airspace disease right lower lobe. Chest x-ray, 04/08/2025: 1. No acute cardiopulmonary disease. 2. Lines and tubes unchanged. Chest x-ray, 04/15/2025: Increased right lower lobe airspace disease CT head, 04/05/2025:1. No evidence of acute intracranial abnormality. 2. Mild subcortical and periventricular low attenuation, nonspecific but most commonly associated with sequelae of chronic microvascular ischemic changes although other etiologies are not excluded. vital signs Vital Sign Date Time Temp Pulse Resp B/P (MAP) Pulse Ox O2 Delivery O2 Flow Rate FiO2 04/26/25 18:24 115 18 117/71 (86) 100 30 04/26/25 18:00 Trach Collar 12 04/26/25 03:45 98.9 98.9 Total Intake and Output 04/25/25 04/25/25 04/26/25 15:00 23:00 07:00 Intake Total 217.5 ml 67.5 ml 615.0 ml Output Total 300 ml 300 ml Balance 217.5 ml -232.5 ml 315.0 ml medications Current Medications Medications Dose Ordered Sig/Guy Route Start Time Stop Time Status Last Admin Dose Admin Norepinephrine Bitartrate 250 ml @ 3.75 mls/hr Q24H IV 04/03/25 10:00 UNV Fat Emulsion Intravenous 50 ml/ Sodium Chloride 40 meq/Potassium Chloride 20 meq/ Potassium Phosphate 44 meq/ Calcium Gluconate 2.3 meq/Magnesium Sulfate 8 meq/ Multivitamins 10 ml/Chromium/ Copper/Manganese/ Zinc 1 ml/Amino Acids/Dextrose/ Purified Water 1,047.9462 ml @ 44 mls/hr [id number] IV 04/06/25 22:00 04/06/25 22:00 Cancel Sodium Chloride 10 ml QSHIFT@ IV 04/09/25 22:00 04/26/25 09:56 10 ML Fluconazole 100 ml @ 100 mls/hr DAILY IV 04/16/25 10:00 04/26/25 09:55 100 MLS/HR Vancomycin HCl 0 ml @ 0 mls/hr PER PHARMACY IV 04/16/25 12:15 Cancel Ipratropium [place] 0.5 mg Q6HR NEB 04/16/25 18:00 04/26/25 18:23 0.5 MG Levalbuterol HCl 1.25 mg Q6HR NEB 04/16/25 18:00 04/26/25 18:23 1.25 MG Enteral Nutritional Formula 1,000 ml 30ML/HR GT 04/18/25 09:15 04/23/25 04:57 1,000 ML Midazolam HCl 100 ml @ 1 mls/hr Q24H IV 04/22/25 15:45 Fentanyl Citrate 250 ml @ 2.5 mls/hr Q24H IV 04/22/25 15:45 04/25/25 11:25 7.5 MLS/HR Pantoprazole Sodium 40 mg DAILY IV 04/22/25 17:51 04/26/25 09:55 40 MG Meropenem 50 ml @ 17 mls/hr Q8HR IV 04/23/25 14:00 UNV Purified Water 200 ml Q6HR GT 04/23/25 18:00 04/26/25 18:38 200 ML Meropenem 50 ml @ 17 mls/hr Q12H IV 04/23/25 23:00 04/26/25 11:11 17 MLS/HR Acetaminophen 650 mg Q4HP PRN GT 04/26/25 17:00 objective The patient is well-nourished and well-developed with no distress. MENTAL STATUS: Subjective CRANIAL NERVES: Pupils are round and reactive.There conjugated eye movement. No signs of facial weakness. Normal sensory and motor examination in bilateral trigeminal distribution SENSATION: Fine to light touch and pinprick MOTOR: Normal tone in the upper and lower extremity. Normal muscle bulk. No fasciculations. Moves the hands and feet slightly REFLEXES: Deep tendon reflexes are symmetrical. No pathological reflexes. CEREBELLAR/COORDINATION: Deferred GAIT/STATION: deferred. laboratory and microbiology Laboratory Tests 04/25/25 20:00 Test 04/25/25 20:00 Range/Units Serum Glucose 84 74-106 mg/dL Problem List Altered mental status, Hypoxic encephalopathy Metabolic encephalopathy Toxic encephalopathy Acute on chronic respiratory failure, reintubated on 04/15/2025 Pneumoniae, Leukocytosis/sepsis Anisocoria Etiology unclear Cachexia Assessment/Plan Monitoring Supportive treatment ICU Stabilize vitals p.r.n. Respiratory support p.r.n. Oxygen IV antibiotics DVT prophylaxis GI prophylaxis More recommendation per clinical course This medical document was created using an electronic medical record system with [employer] computerized dictation system. Although this document has been carefully reviewed, there may still be some phonetic and typographical errors. These areas are purely typographical due to imperfections of the software programs, and do not reflect any compromise in the patient's medical care. Prognosis poor Dietary Evaluation Review Comments: 1) If patient remains NPO > 7 days, consider EN/TPN to meet at least 75% estimated daily needs 2) If gut is preferred, initiate Vital High Protein @ 40 mL/hr goal rate as tolerated. Flush with 50 mL free H2O Q6H. EN regimen will provide 960 kcals, 84g Pro, and 1003 mL free H2O (including TF flushes) per 24 hrs. Goal rate will meet ~ 95% estimated energy needs and ~ 93% estimated protein needs 3) Advance to cardiac diet when medically feasible, pending ST approval 4) Refer to outpatient RD for weight management 5) Follow-up with cardiology and pulmonology 6) Continue to monitor I&O, labs, and skin integrity Expected Outcomes/Goals: 1) patient to receive nutritional support within 7 days of NPO status 2) labs to improve 3) diet to advance 4) gradual wt gain 5) f/u in 2-3 days Plan discussed with: Other RAMAN LAWTON MD Apr 26, 2025 18:44
[2025-04-26] MEDS: ACETAMINOPHEN 650 mg PER 20.3 mL UD GT PRN (21:53)
[2025-04-27] VITALS (111 sets, daily range): BP systolic 91–163; BP diastolic 46–81; PULSE 85–119; RESP 11–22; TEMP 97.4–98.1; O2SAT 89–99
[2025-04-27 03:45] LABS: Hematocrit 25.5 % (36.0-46.0); Hemoglobin 8.5 g/dL (12.2-16.2); Mean Corpuscular Hemoglobin 31.3 pg (28.0-32.0); Mean Corpuscular Volume 94.5 fL (80.0-100.0); Nucleated Red Blood Cells % 0.0 %
[2025-04-27 04:06] LABS: Alanine Aminotransferase 35 U/L (7-40); Anion Gap 14 (5-15); BUN/Creatinine Ratio 54.8 (10.0-20.0); Carbon Dioxide 21 mmol/L (20-31); Glucose 85 mg/dL (74-106); Potassium 3.8 mmol/L (3.5-5.1); Sodium 145 mmol/L (136-145)
[2025-04-27 04:07] LABS: Albumin 2.1 g/dL (3.2-4.8); Alkaline Phosphatase 130 U/L (46-116); Bilirubin, Total 0.4 mg/dL (0.2-1.0); Blood Urea Nitrogen 69 mg/dL (9-23); Calcium 7.4 mg/dL (8.7-10.4); Chloride 110 mmol/L (98-107); Total Protein 3.6 g/dL (5.7-8.2)
--- NOTE | 2025-04-27 04:57 | DVH ---
MEDICAL RECORDS NUMBER: [id number] PROCEDURE: XY CHEST XRAY 1 VIEW DATE: 04/27/2025 04:26 AM HISTORY: traheostomy Views:1 COMPARISON: XY CHEST PORTABLE on DOS: 04/26/25, XY CHEST XRAY 1 VIEW on DOS: 04/25/25, XY CHEST PORTABLE on DOS: 04/24/25, XY CHEST XRAY 1 VIEW on DOS: 04/24/25, XY CHEST XRAY 1 VIEW on DOS: 04/23/25 FINDINGS/IMPRESSION: Lungs: The lungs are hyperexpanded and demonstrate chronic changes suggestive of COPD. No acute process is otherwise seen of the lungs. Mediastinum: Mediastinal structures appear unremarkable. Tracheostomy tube is noted.A left-sided central line is seen. The tip projects over the superior vena cava. No pneumothorax is seen. Nasogastric tube courses through the film Skeletal: The skeletal structures appear unremarkable.
[2025-04-27] MEDS: MIDODRINE HCL 10 MG TAB PO SCH (05:58)
--- NOTE | 2025-04-27 14:00 | DVHPNRES ---
Progress Note Date Seen: Apr 27, 2025 Resident Creating Document: GRACE LOPEZ RESIDENT Medical Necessity Reason Pt with a Central, PICC or Fol: Yes The following are medically ne: Central Line, Chin Catheter Subjective Review of Systems Ms. Mueller is a 59 year old female with PMHx HFrEF, COPD, GERD, and hyperlipidemia, presented to [facility] Emergency Department secondary to shortness of breath. Daughter reports patient has been experiencing shortness of breaths, desaturating on room 70% increased work of breathing, given breathing treatment and placed on oxygen at 6 L/min via nasal cannula and O2 saturation improved to 94% Initial chest xray shows patchy oaioh-hllalmy-qwiu-left bibasilar opacities, favoring infection, for which the patient was started on IV ceftriaxone and vancomycin. At the emergency department, the patient became altered and showing signs of respiratory distress resulting in intubation on 04/03/2025. She was admitted for further work and management. Past medical history: Have breath, COPD, GERD, and hyperlipidemia Past surgical history: Tonsillectomy Family history reviewed, noncontributory Social history: Per daughter the patient smoked since she was 15 years old and has history of methamphetamine use 04/27/2025: Patient evaluated in the ICU. Currently off pressors and sedation. She is aware and is able to mouth small words, complains of back pain. She is status post tracheostomy on 04/24/2025, failed first trach collar trail. Currently producing bloody urine. Daughter states that she believed anisocoria has worsened, for which a head CT has been ordered for evaluation. CBC continues to show elevated, but down trending, WBCs, PLTs are 29, for which platelets were transfused today. Due presence of bloody urine, another transfusion was ordered. BUN and creatine continue to elevate. Due to finding of filamentous fungi on sputum culture, Voriconazole has been ordered. Objective vital signs Vital Sign Date Time Temp Pulse Resp B/P (MAP) Pulse Ox O2 Delivery O2 Flow Rate FiO2 04/27/25 13:45 94 17 99/52 (68) 97 04/27/25 12:00 Mechanical Ventilator+ 30 30 04/27/25 12:00 98.1 98.1 04/27/25 10:35 12.0 Total Intake and Output 04/26/25 04/26/25 04/27/25 15:00 23:00 07:00 Intake Total 150 ml 295 ml 716 ml Output Total 250 ml 325 ml Balance 150 ml 45 ml 391 ml medications Current Medications Medications Dose Ordered Sig/Guy Route Start Time Stop Time Status Last Admin Dose Admin Norepinephrine Bitartrate 250 ml @ 3.75 mls/hr Q24H IV 04/03/25 10:00 UNV Fat Emulsion Intravenous 50 ml/ Sodium Chloride 40 meq/Potassium Chloride 20 meq/ Potassium Phosphate 44 meq/ Calcium Gluconate 2.3 meq/Magnesium Sulfate 8 meq/ Multivitamins 10 ml/Chromium/ Copper/Manganese/ Zinc 1 ml/Amino Acids/Dextrose/ Purified Water 1,047.9462 ml @ 44 mls/hr [id number] IV 04/06/25 22:00 04/06/25 22:00 Cancel Sodium Chloride 10 ml QSHIFT@,22 IV 04/09/25 22:00 04/27/25 10:00 10 ML Fluconazole 100 ml @ 100 mls/hr DAILY IV 04/16/25 10:00 04/27/25 11:15 100 MLS/HR Vancomycin HCl 0 ml @ 0 mls/hr PER PHARMACY IV 04/16/25 12:15 Cancel Ipratropium [place] 0.5 mg Q6HR NEB 04/16/25 18:00 04/27/25 12:06 0.5 MG Levalbuterol HCl 1.25 mg Q6HR NEB 04/16/25 18:00 04/27/25 12:06 1.25 MG Enteral Nutritional Formula 1,000 ml 30ML/HR GT 04/18/25 09:15 04/23/25 04:57 1,000 ML Midazolam HCl 100 ml @ 1 mls/hr Q24H IV 04/22/25 15:45 Fentanyl Citrate 250 ml @ 2.5 mls/hr Q24H IV 04/22/25 15:45 04/25/25 11:25 7.5 MLS/HR Pantoprazole Sodium 40 mg DAILY IV 04/22/25 17:51 04/27/25 10:00 40 MG Meropenem 50 ml @ 17 mls/hr Q8HR IV 04/23/25 14:00 UNV Purified Water 200 ml Q6HR GT 04/23/25 18:00 04/27/25 12:14 200 ML Meropenem 50 ml @ 17 mls/hr Q12H IV 04/23/25 23:00 04/27/25 11:25 17 MLS/HR Acetaminophen 650 mg Q4HP PRN GT 04/26/25 17:00 04/26/25 21:53 650 MG Midodrine 5 mg TID@0600,1200,1800 PO 04/27/25 06:00 04/27/25 12:14 5 MG Examination General: Patient is alert, cachectic, with tracheostomy connected to vent HEENT: Normocephalic, atraumatic, left anisocoria is noted, pupils reactive to light, dry mucous membranes, poor dentition Respiratory/pulmonary: Bilateral chest expansion, bruising noted on mid upper chest, on tracheostomy connected to vent, clear lungs bilaterally, vesicular murmurs present in almost all lung galan, no associated crackles or wheezes. Cardiovascular: Normal RRR, normal S1 and S2, no murmurs Abdomen: Abdomen nondistended, normal bowel sounds, soft, there is no pain to palpation in any of the abdominal quadrants : Presence of Chin draining bloody urine Extremities: Bilateral arms are covered by gauze wrapping with presence of multiple skin tears with serous secretions, bilateral lower extremity pitting edema +1 reaching above ankles, presence of picc line in inner left arm Skin: Presence of multiple skin tears and ulcers Neurological: Intact cranial nerves with no focal neurologic deficits laboratory and microbiology Laboratory Tests 04/27/25 02:52 Test 04/27/25 02:52 Range/Units Serum Glucose 85 74-106 mg/dL Microbiology Date/Time Source Procedure Growth Status 04/15/25 20:17 Sputum Gram Stain - Final Complete 04/15/25 20:17 Sputum Respiratory Culture - Final Complete 04/12/25 22:58 Stool Stool Culture - Final Complete 04/12/25 22:58 Stool Shiga Toxin I & II - Final Complete 04/05/25 08:00 Nose MRSA Screen - Final Complete 04/02/25 20:04 Blood Blood Culture - Final NO GROWTH AFTER 5 DAYS OF INCUBATION. Complete Problem List/Assessment/Plan Problem List/Assessment/Plan Neurology #Acute metabolic/hypoxic encephalopathy likely due to COPD exacerbation #Anisocoria - Head CT 04/27/2025: No acute intracranial abnormality #Off Sedation - Patient is no longer sedated, Morphine 1 g IV PRN for pain Cardiovascular # Chronic HFrEF, current not in exacerbation - Echocardiogram: LVEF 35%, RV enlarged, mild to moderate pericardial effusion adjacent to RV, no tamponade Respiratory # Ventilator - Intubated (04/03/2025) - Extubated (04/13/2025) - Reintubated (04/15/2025) - Trach tube placement and ET tube removal ( 04/24/2025) - On [facility] vent : VCAC Mode RR 18, PEEP 5, FiO2 30%, VT 400 - Trach collar trial, failed first attempt # Acute hypoxic respiratory failure likely due to COPD exacerbation/PNA - Patient was intubated on 04/03/2025 extubated on 04/13/2025 and subsequently reintubated on 04/15/2025 - Tracheostomy 04/24/2025 - Currently on trach collar trial #Sepsis likely due to pneumonia Gram-positive, Gram-negative, aspiration - Chest Xray: patchy mrilo-dmegysf-erwo-left bibasilar opacities, favoring infection - Chest CT: Left lower lobe consolidation and multiple smaller nodular foci. Findings are concerning for pneumonia. Severe centrilobular emphysema. 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 #COPD exacerbation - Solu Medrol (Last dose: 04/24) - Ipratropium medneb - Levalbuterol medneb GI #Cachexia BMI 17 # Slow transit constipation -- Last bowel movement 04/27/2025 # Severe protein malnutrition - Jevity - Increase rate of feeding # Peptic ulcer prophylaxis -Pantoprazole 40 mg IV daily # Chin catheter with bloody urine - Continue to transfuse platelets Nephrology #Hypocalcemia - Monitor #Hypokalemia - Resolved - Monitor potassium #Hypophosphatemia - Resolved #Hyponatremia - Resolved - Monitor sodium Infectious disease #Sepsis likely due to pneumonia Gram-positive, Gram-negative, aspiration - Chest Xray: patchy tkbxi-vpkqvkf-ijen-left bibasilar opacities, favoring infection 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 Code status discussed greater than 20 minutes: Full CODE STATUS. Family at bedside explained about the condition of the patient Plan discussed with Dr. Briggs Plan discussed with: Patient, Daughter, Other (Nurse) Dietary Evaluation Review Comments: 1) If patient remains NPO > 7 days, consider EN/TPN to meet at least 75% estimated daily needs 2) If gut is preferred, initiate Vital High Protein @ 40 mL/hr goal rate as tolerated. Flush with 50 mL free H2O Q6H. EN regimen will provide 960 kcals, 84g Pro, and 1003 mL free H2O (including TF flushes) per 24 hrs. Goal rate will meet ~ 95% estimated energy needs and ~ 93% estimated protein needs 3) Advance to cardiac diet when medically feasible, pending ST approval 4) Refer to outpatient RD for weight management 5) Follow-up with cardiology and pulmonology 6) Continue to monitor I&O, labs, and skin integrity Expected Outcomes/Goals: 1) patient to receive nutritional support within 7 days of NPO status 2) labs to improve 3) diet to advance 4) gradual wt gain 5) f/u in 2-3 days Date of Service: Apr 27, 2025 Billing Provider: REBECCA BRIGGS MD Common Visit Codes: [id number] CARE 30-74 MIN GRACE LOPEZ RESIDENT Apr 27, 2025 14:00 REBECCA BRIGGS MD Apr 28, 2025 15:39
--- NOTE | 2025-04-27 14:19 | DVHCONRES ---
Date Seen: Apr 27, 2025 Resident Creating Document: GENE ALEXANDER RESIDENT Referring Physician DR ALONSO History of Present Illness Ms. López a 59 year old female with PMHx HFrEF, COPD, GERD, and hyperlipidemia, was intubated on 04/03/25, underwent tracheostomy 04/24 GI consultation for PEG tube placement Patient seen and examined. On T collar. Family History: Bipolar disorder G8 SISTER Diabetes mellitus G8 SISTER FH: heart disease G8 MOTHER FH: schizophrenia G8 SISTER Hypertension G8 MOTHER Allergies: Coded Allergies: Penicillins (Verified Allergy, Unknown, 02/07/22) Home Meds Active Scripts Pantoprazole Sodium Sesquihydr (Protonix) 40 Mg Tab, 40 MG PO DAILY PRN for 7 Days, #7 TAB Prov:LEAH PLASCENCIA MD 01/23/22 Prednisone (Prednisone) 20 Mg Tab, 20 MG PO DAILY for 7 Days, #7 MG Prov:LEAH PLASCENCIA MD 01/23/22 Reported Medications Umeclidinium [place] (Incruse Ellipta) 62.5 Mcg/Inh Inh, 1 PUFF INH DAILYPRN 07/30/20 Beclomethasone Dipropionate (Qvar Redihaler) 80 Mcg/Act Aer, 1 PUFF INH BID 07/30/20 Current Medications Current Medications Medications (Trade) Dose Ordered Sig/Guy Route PRN Reason Start Time Stop Time Status Last Admin Acetaminophen (Tylenol Solution Oral) 650 mg Q4HP PRN GT Moderate PAIN (6-8 PAIN SCALE) 04/26/25 17:00 04/26/25 21:53 Midodrine (Proamatine Tablet) 5 mg TID@0600,1200,1800 PO 04/27/25 06:00 04/27/25 12:14 Vital Signs Vital Signs Date Time Temp Pulse Resp B/P (MAP) Pulse Ox O2 Delivery O2 Flow Rate FiO2 04/27/25 14:00 30 04/27/25 14:00 19 96 Mechanical Ventilator+ 04/27/25 14:00 88 04/27/25 13:45 99/52 (68) 04/27/25 12:00 98.1 98.1 04/27/25 10:35 12.0 Physical Exam Patient lying in bed, in no acute distress General: Female patient, afebrile, palor, mucosae are moist Cardiovascular: Regular S1 and S2. No murmurs, gallops or rubs. No JVD elevation. No pedal edema Respiratory: On Tracheostomy Mechanical ventilation Abdomen: Soft, nontender, nondistended, normoactive bowel sounds, no rebound tenderness, no organomegaly, no masses Genitourinary: Deferred Labs/Diagnostic Data Labs Test 04/27/25 02:52 04/26/25 09:25 04/26/25 02:50 04/25/25 20:00 Range/Units White Blood Count 17.7 #H 4.4-10.8 10^3/uL Red Blood Count 2.70 L 4.0-5.20 10^6/uL Hemoglobin 8.5 L 12.2-16.2 g/dL Hematocrit 25.5 L 36.0-46.0 % Mean Corpuscular Volume 94.5 80.0-100.0 fL Mean Corpuscular Hemoglobin 31.3 28.0-32.0 pg Mean Corpuscular Hemoglobin Concent 33.2 32.0-36.0 g/dL Red Cell Distribution Width 15.5 H 11.8-14.3 % Platelet Count 29 L 140-450 10^3/uL Mean Platelet Volume 10.2 6.9-10.8 fL Neutrophils (%) (Auto) 93.0 H 37.0-80.0 % Lymphocytes (%) (Auto) 4.3 L 10.0-50.0 % Monocytes (%) (Auto) 2.4 0.0-12.0 % Eosinophils (%) (Auto) 0.2 0.0-7.0 % Basophils (%) (Auto) 0.1 0.0-2.0 % Neutrophils # (Auto) 16.4 H 1.6-8.6 10 ^3/uL Lymphocytes # (Auto) 0.8 0.4-5.4 10 ^3/uL Monocytes # (Auto) 0.4 0-1.3 10 ^3/uL Eosinophils # (Auto) 0 0-0.8 10 ^3/uL Basophils # (Auto) 0 0-0.2 10 ^3/uL Nucleated Red Blood Cells 0.0 % Sodium Level 145 136-145 mmol/L Potassium Level 3.8 3.5-5.1 mmol/L Chloride Level 110 H 98-107 mmol/L Carbon Dioxide Level 21 20-31 mmol/L Anion Gap 14 5-15 Blood Urea Nitrogen 69 #H 9-23 mg/dL Creatinine 1.26 H 0.550-1.02 mg/dL Glomerular Filtration Rate Calc 49 >90 mL/min BUN/Creatinine Ratio 54.8 H 10.0-20.0 Serum Glucose 85 74-106 mg/dL Calcium Level 7.4 L 8.7-10.4 mg/dL Total Bilirubin 0.4 0.2-1.0 mg/dL Aspartate Amino Transferase (AST) 29 13-40 U/L Alanine Aminotransferase (ALT) 35 7-40 U/L Alkaline Phosphatase 130 H 46-116 U/L Total Protein 3.6 L 5.7-8.2 g/dL Albumin 2.1 L 3.2-4.8 g/dL Blood Gas Specimen Type Arterial Blood Gas Sample Site Left radial Blood Gas Patient Temperature 37.0 Arterial Blood Date Drawn [id number] Arterial Blood pH 7.444 7.350-7.450 Arterial Blood Partial Pressure CO2 30.6 L 32.0-45.0 mmHg Arterial Blood Partial Pressure O2 60.7 L 83.0-108.0 mmHg Arterial Blood HCO3 20.5 L 21.0-28.0 mmol/L Arterial Blood Oxygen Saturation 90.1 L 94.0-98.0 % Arterial Blood Base Excess -2.8 L -2.0-3.0 mmol/L Arterial Blood Oxyhemoglobin 89.3 L 94.0-98.0 % Arterial Blood Carboxyhemoglobin 0.3 L 0.5-1.5 % Arterial Blood Methemoglobin 0.6 0.0-1.5 % Alex Test Modified Blood Gas Total Hemoglobin 10.20 L 12.0-16.0 g/dL Blood Gas Modality Vent - ac FiO2 % 35.0 Blood Gas Pressure Support 8 Blood Gas PEEP or CPAP 5.0 Random Vancomycin Level 21.6 H 5-10 ug/mL Magnesium Level 1.9 1.6-2.6 mg/dL Test 04/25/25 07:16 04/24/25 04:47 04/23/25 08:24 04/20/25 09:10 Range/Units Blood Gas Set Respiration Rate 18.0 Blood Gas Tidal Volume 400.0 Prothrombin Time 13.0 H 9.3-11.8 sec Prothrombin Time INR 1.25 H 0.9-1.15 Activated Partial Thromboplast Time 37.2 H 24.5-34.5 SEC Urine Color Brown H Yellow Urine Clarity Bloody H Clear Urine pH 5.0 5.0-9.0 Urine Specific [place] 1.025 1.001-1.035 Urine Protein 3+ H Negative Urine Ketones 1+ H Negative Urine Blood 4+ H Negative /uL Urine Nitrite Positive H Negative Urine Bilirubin Negative Negative Urine Urobilinogen Normal Negative mg/dL Urine Leukocyte Esterase 1+ H Negative /uL Urine RBC 1940 0 - 4 /hpf Urine WBC Clumps Present None Seen /hpf Urine Microscopic WBC 147 H 0-5 /HPF Urine Squamous Epithelial Cells None seen <5 /hpf Urine Amorphous Crystals Few None Seen /hpf Urine Bacteria None seen None Seen /hpf Urine Glucose Normal Normal mg/dL Vancomycin Level Trough 11.3 H 5-10 ug/mL Test 04/19/25 03:05 04/17/25 18:30 04/17/25 14:51 04/17/25 06:44 Range/Units Phosphorus Level 2.5 2.4-5.1 mg/dL Stool Occult Blood Positive Negative Stool Occult Blood Sample #3 Negative Platelet Estimate Decreased Hypochromasia (manual) Slight Blood Gas Spontaneous Rate 22 Test 04/15/25 19:20 04/15/25 19:10 04/15/25 18:55 04/14/25 08:25 Range/Units Lactic Acid Level 0.9 0.4-2.0 mmol/L Troponin I High Sensitivity 14 </=34 ng/L B-Type Natriuretic Peptide 78.25 0-100 pg/mL D-Dimer, Quantitative 2.93 H 0.0-0.49 mg/L FEU POC Glucose 159 H 70-106 mg/dl Blood Gas Liter Flow 2.00 Test 04/13/25 11:34 04/07/25 12:55 04/07/25 03:07 04/05/25 19:51 Range/Units Blood Gas Spontaneous Tidal Volume 323 Iron Level 33 L 50-170 ug/dL Total Iron Binding Capacity 174 L 250-425 ug/dL Percent Iron Saturation 19.0 15-50 % Hemoglobin A1c 5.3 <5.7 % A1C Miscellaneous Referred Test ( Tmp Sent to [facility] Test 04/05/25 14:59 04/03/25 11:30 04/03/25 07:18 04/02/25 20:38 Range/Units Triglycerides Level 100 < 150 mg/dL Blood Gas Critical Value Read Back yes Blood Gas Notified Whom simeon perales Blood Gas Notified Time [id number] Blood Gas Notified By richardson queen Differential Total Cells Counted 100.0 100 Neutrophils % (Manual) 86 H 37.0-80.0 Band Neutrophils % (Manual) 6 Lymphocytes % (Manual) 4 L 10.0-50.0 Monocytes % (Manual) 4 0-12 Eosinophils % (Manual) 0 0-7 Basophils % (Manual) 0 0.0-2.0 Metamyelocytes % (manual) 0 Myelocytes % (Manual) 0 Promyelocytes % (Manual) 0 Blast Cells % (Manual) 0 Reactive Lymphocytes 0 Urine Mucus Few None Seen Urine Opiates Screen Neg NEGATIVE Urine Fentanyl Screen Neg NEGATIVE Urine Barbiturates Screen Neg NEGATIVE Urine Phencyclidine Screen Neg NEGATIVE Urine Amphetamines Screen Neg NEGATIVE Urine Benzodiazepines Screen Neg NEGATIVE Urine Cocaine Screen Neg NEGATIVE Urine Cannabinoids Screen Neg NEGATIVE Test 04/02/25 20:13 04/02/25 20:04 Range/Units Influenza Type A Antigen Negative Negative Influenza Type B Antigen Negative Negative SARS-CoV-2 Antigen (Rapid) Negative NEGATIVE Lipase 19 12-53 U/L Plasma/Serum Blood Alcohol < 3.0 <10 mg/dL Microbiology Date/Time Source Procedure Growth Status 04/15/25 20:17 Sputum Gram Stain - Final Complete 04/15/25 20:17 Sputum Respiratory Culture - Final Complete 04/12/25 22:58 Stool Stool Culture - Final Complete 04/12/25 22:58 Stool Shiga Toxin I & II - Final Complete 04/05/25 08:00 Nose MRSA Screen - Final Complete 04/02/25 20:04 Blood Blood Culture - Final NO GROWTH AFTER 5 DAYS OF INCUBATION. Complete Assessment Acute metabolic/hypoxic encephalopathy likely due to COPD exacerbation, improving Sepsis Acute on chronic hypoxic respiratory failure Acute COPD exacerbation/ pneumonia s/p tracheostomy Chronic diastolic Congestive heart failure Anemia chronic disease Cachexia Severe Protein malnutrition Plan: Dr. Mcguire: Patient will be scheduled for PEG tube placement later this week. WBC count decreasing, H&H downtrending, monitor H&H. Continue Protonix 40 mg IV daily Avoid NSAIDs Continue enteral nutrition Rest of management per primary team Thank you for consulting GI Plan discussed with nurse jt in which all questions have been answered Case discussed with Dr. Mcguire Plan discussed with: Other (Nurse) GENE ALEXANDER RESIDENT Apr 27, 2025 14:19
[2025-04-27] MEDS ORDERED: MORPHINE SULFATE INJ 2 MG/ml SYRG IV PRN (18:15)
--- NOTE | 2025-04-27 21:28 | DVH ---
EXAM: CT HEAD WITHOUT CONTRAST INDICATION: UNEQUAL PUPILS TECHNIQUE: CT images of the head were obtained without administration of IV contrast. CT scans at this facility use dose modulation, iterative reconstruction, and/or weight based dosing when appropriate to reduce radiation dose to as low as reasonably achievable. COMPARISON: CT HEAD WITHOUT CONTRAST on DOS: 04/05/25 FINDINGS: PARENCHYMA: No acute hemorrhage. There is no mass effect, midline shift, or herniation. There is preservation of the cespedes white differentiation. Mild scattered hypoattenuation along the periventricular, centrum semiovale, and deep white matter tracts, which are nonspecific however statistically most likely represent chronic microvascular ischemic change. VENTRICLES: No hydrocephalus. EXTRA-AXIAL SPACES: No extra-axial fluid collections. OTHER: The bony structures are intact. Trace fluid in the right posterior inferior mastoid air cells . Multiple dental cavities. IMPRESSION: 1. No CT evidence of an acute intracranial abnormality.
[2025-04-28] VITALS (83 sets, daily range): BP systolic 99–146; BP diastolic 47–82; PULSE 88–120; RESP 12–26; TEMP 97.4–97.8; O2SAT 90–100
--- NOTE | 2025-04-28 03:30 | DVH ---
MEDICAL RECORDS NUMBER: [id number] PROCEDURE: XY CHEST XRAY 1 VIEW DATE: 04/28/2025 02:59 AM HISTORY: Post tracheostomy Views:1 COMPARISON: XY CHEST XRAY 1 VIEW on DOS: 04/27/25, XY CHEST PORTABLE on DOS: 04/26/25, XY CHEST XRAY 1 VIEW on DOS: 04/25/25, XY CHEST PORTABLE on DOS: 04/24/25, XY CHEST XRAY 1 VIEW on DOS: 04/24/25 FINDINGS/IMPRESSION: Lungs: Diffuse minor chronic changes of the lungs are noted. No acute lung pathology is seen. Mediastinum: Mediastinal structures appear unremarkable.NG tube is seen with the tip projecting over the expected position of the stomachA left-sided central line is seen. The tip projects over the superior vena cava. No pneumothorax is seen. Tracheostomy tube is noted Skeletal: The skeletal structures appear unremarkable.
[2025-04-28 04:04] LABS: Hematocrit 24.1 % (36.0-46.0); Hemoglobin 8.2 g/dL (12.2-16.2); Mean Corpuscular Hemoglobin 32.0 pg (28.0-32.0); Mean Corpuscular Volume 93.5 fL (80.0-100.0); Nucleated Red Blood Cells % 0.0 %
[2025-04-28 04:13] LABS: Alanine Aminotransferase 34 U/L (7-40); Anion Gap 11 (5-15); BUN/Creatinine Ratio 52.3 (10.0-20.0); Carbon Dioxide 24 mmol/L (20-31); Chloride 107 mmol/L (98-107); Glucose 92 mg/dL (74-106); INR 1.03 (0.9-1.15); Partial Thromboplastin Time 47.0 SEC (24.5-34.5); Potassium 4.0 mmol/L (3.5-5.1); Prothrombin Time 10.9 sec (9.3-11.8); Sodium 142 mmol/L (136-145)
[2025-04-28 04:14] LABS: Bilirubin, Total 0.5 mg/dL (0.2-1.0)
[2025-04-28 04:18] LABS: Albumin 2.2 g/dL (3.2-4.8); Alkaline Phosphatase 130 U/L (46-116); Blood Urea Nitrogen 68 mg/dL (9-23); Calcium 7.3 mg/dL (8.7-10.4); Total Protein 3.7 g/dL (5.7-8.2)
--- NOTE | 2025-04-28 11:21 | DVHPNRES ---
Progress Note Date Seen: Apr 28, 2025 Resident Creating Document: GRACE LOPEZ RESIDENT Medical Necessity Reason Pt with a Central, PICC or Fol: Yes The following are medically ne: PICC Line, Chin Catheter Subjective Review of Systems Ms. Mueller is a 59 year old female with PMHx HFrEF, COPD, GERD, and hyperlipidemia, presented to [facility] Emergency Department secondary to shortness of breath. Daughter reports patient has been experiencing shortness of breaths, desaturating on room 70% increased work of breathing, given breathing treatment and placed on oxygen at 6 L/min via nasal cannula and O2 saturation improved to 94% Initial chest xray shows patchy tbsmg-xznznyo-pcnm-left bibasilar opacities, favoring infection, for which the patient was started on IV ceftriaxone and vancomycin. At the emergency department, the patient became altered and showing signs of respiratory distress resulting in intubation on 04/03/2025. She was admitted for further work and management. Past medical history: HFrEF, COPD, GERD, and hyperlipidemia Past surgical history: Tonsillectomy Family history reviewed, noncontributory Social history: Per daughter the patient smoked since she was 15 years old and has history of methamphetamine use 04/28/2025: Patient is evaluated in the ICU. Per her nurse, no adverse events overnight, she continues to drain bloody urine from Chin, reports 1 bowel movement overnight with no signs of blood. Currently off pressors and sedation. She is status post tracheostomy on 04/24/2025 still connected to the vent, pending follow up trach collar trial. She afebrile, normal cardiac, saturating adequately on. WBCs continued to downtrend, hemoglobin is stable, platelets today are 39 status post platelet transfusion yesterday. BUN and creatinine continued to rise. Head CT done yesterday shows no acute intracranial abnormality. Patient was evaluated by Gastroenterology who will plan for PEG tube placement. Patient tolerated trach collar trial for 5 hours. Due to cachexia, feeding rate has been increased from 30 to 40. She has been accepted at [facility] pending authorization. 04/27/2025: Patient evaluated in the ICU. Currently off pressors and sedation. She is aware and is able to mouth small words, complains of back pain. She is status post tracheostomy on 04/24/2025, failed first trach collar trail. Currently producing bloody urine. Daughter states that she believed anisocoria has worsened, for which a head CT has been ordered for evaluation. CBC continues to show elevated, but down trending, WBCs, PLTs are 29, for which platelets were transfused today. Due presence of bloody urine, another transfusion was ordered. BUN and creatine continue to elevate. Due to finding of filamentous fungi on sputum culture, Voriconazole has been ordered. Objective vital signs Vital Sign Date Time Temp Pulse Resp B/P (MAP) Pulse Ox O2 Delivery O2 Flow Rate FiO2 04/28/25 08:00 107 18 98 Mechanical Ventilator+ 30 30 04/28/25 07:31 127/71 (89) 04/28/25 04:00 97.4 97.4 04/27/25 10:35 12.0 Total Intake and Output 04/27/25 04/27/25 04/28/25 15:00 23:00 07:00 Intake Total 407 ml 640 ml 751 ml Output Total 250 ml 350 ml Balance 407 ml 390 ml 401 ml medications Current Medications Medications Dose Ordered Sig/Guy Route Start Time Stop Time Status Last Admin Dose Admin Norepinephrine Bitartrate 250 ml @ 3.75 mls/hr Q24H IV 04/03/25 10:00 UNV Fat Emulsion Intravenous 50 ml/ Sodium Chloride 40 meq/Potassium Chloride 20 meq/ Potassium Phosphate 44 meq/ Calcium Gluconate 2.3 meq/Magnesium Sulfate 8 meq/ Multivitamins 10 ml/Chromium/ Copper/Manganese/ Zinc 1 ml/Amino Acids/Dextrose/ Purified Water 1,047.9462 ml @ 44 mls/hr [id number] IV 04/06/25 22:00 04/06/25 22:00 Cancel Sodium Chloride 10 ml QSHIFT@10,22 IV 04/09/25 22:00 04/28/25 09:27 10 ML Vancomycin HCl 0 ml @ 0 mls/hr PER PHARMACY IV 04/16/25 12:15 Cancel Ipratropium [place] 0.5 mg Q6HR NEB 04/16/25 18:00 04/28/25 06:36 0.5 MG Levalbuterol HCl 1.25 mg Q6HR NEB 04/16/25 18:00 04/28/25 06:36 1.25 MG Enteral Nutritional Formula 1,000 ml 30ML/HR GT 04/18/25 09:15 04/23/25 04:57 1,000 ML Midazolam HCl 100 ml @ 1 mls/hr Q24H IV 04/22/25 15:45 Fentanyl Citrate 250 ml @ 2.5 mls/hr Q24H IV 04/22/25 15:45 04/25/25 11:25 7.5 MLS/HR Pantoprazole Sodium 40 mg DAILY IV 04/22/25 17:51 04/28/25 09:27 40 MG Meropenem 50 ml @ 17 mls/hr Q8HR IV 04/23/25 14:00 UNV Purified Water 200 ml Q6HR GT 04/23/25 18:00 04/28/25 05:39 200 ML Meropenem 50 ml @ 17 mls/hr Q12H IV 04/23/25 23:00 04/27/25 22:43 17 MLS/HR Acetaminophen 650 mg Q4HP PRN GT 04/26/25 17:00 04/28/25 09:27 650 MG Voriconazole 160 mg/Dextrose 266 ml @ 133 mls/hr Q12H IV 04/28/25 18:15 UNV Morphine Sulfate 1 mg Q4HP PRN IV 04/27/25 18:15 Examination General: Patient is alert, cachectic, with tracheostomy connected to vent HEENT: Normocephalic, atraumatic, left anisocoria is noted, pupils reactive to light, dry mucous membranes, poor dentition Respiratory/pulmonary: Bilateral chest expansion, bruising noted on mid upper chest, on tracheostomy connected to vent, clear lungs bilaterally, vesicular murmurs present in almost all lung galan, no associated crackles or wheezes. Cardiovascular: Normal RRR, normal S1 and S2, no murmurs Abdomen: Abdomen nondistended, normal bowel sounds, soft, there is no pain to palpation in any of the abdominal quadrants : Presence of Chin draining bloody urine Extremities: Bilateral arms are covered by gauze wrapping with presence of multiple skin tears with serous secretions, bilateral lower extremity pitting edema +1 reaching above ankles, presence of picc line in inner left arm Skin: Presence of multiple skin tears and ulcers Neurological: Intact cranial nerves with no focal neurologic deficits laboratory and microbiology laboratory and microbiology Laboratory Tests 04/28/25 03:08 Test 04/28/25 03:08 Range/Units Serum Glucose 92 74-106 mg/dL Microbiology Date/Time Source Procedure Growth Status 04/15/25 20:17 Sputum Gram Stain - Final Complete 04/15/25 20:17 Sputum Respiratory Culture - Final Complete 04/12/25 22:58 Stool Stool Culture - Final Complete 04/12/25 22:58 Stool Shiga Toxin I & II - Final Complete 04/05/25 08:00 Nose MRSA Screen - Final Complete 04/02/25 20:04 Blood Blood Culture - Final NO GROWTH AFTER 5 DAYS OF INCUBATION. Complete Problem List/Assessment/Plan Problem List/Assessment/Plan Neurology #Acute metabolic/hypoxic encephalopathy likely due to COPD exacerbation #Anisocoria - Head CT 04/27/2025: No acute intracranial abnormality #Sedation - Patient is no longer sedated, Morphine 1 g IV PRN for pain Cardiovascular # Chronic HFrEF, current not in exacerbation - Echocardiogram: LVEF 35%, RV enlarged, mild to moderate pericardial effusion adjacent to RV, no tamponade Respiratory # Ventilator - Intubated (04/03/2025) - Extubated (04/13/2025) - Reintubated (04/15/2025) - Trach tube placement and ET tube removal ( 04/24/2025) - On [facility] vent : VCAC Mode RR 18, PEEP 5, FiO2 30%, VT 400 - Trach collar trial, failed first attempt - Tolerated 5 hours of trach collar trial # Acute hypoxic respiratory failure likely due to COPD exacerbation/PNA - Patient was intubated on 04/03/2025 extubated on 04/13/2025 and subsequently reintubated on 04/15/2025 - Tracheostomy 04/24/2025 - Currently on trach collar trial #Sepsis likely due to pneumonia Gram-positive, Gram-negative, aspiration - Chest Xray: patchy jfjcp-wsjasqt-yxyi-left bibasilar opacities, favoring infection - Chest CT: Left lower lobe consolidation and multiple smaller nodular foci. Findings are concerning for pneumonia. Severe centrilobular emphysema. 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 #COPD exacerbation - Solu Medrol (Last dose: 04/24) - Ipratropium medneb - Levalbuterol medneb GI #Cachexia BMI 17 # Slow transit constipation -- Last bowel movement 04/27/2025 # Severe protein malnutrition - Jevity - Increase rate of feeding - GI to place PEG tube later this week # Peptic ulcer prophylaxis -Pantoprazole 40 mg IV daily # Chin catheter with bloody urine - Continue to transfuse platelets Nephrology #PAMELA likely hemodynamically mediated/VMN - Monitor renal function - Avoid nephrotoxic drugs #Hypocalcemia - Monitor #Hypokalemia - Resolved - Monitor potassium #Hypophosphatemia - Resolved #Hyponatremia - Resolved - Monitor sodium Infectious disease #Sepsis likely due to pneumonia Gram-positive, Gram-negative, aspiration - Chest Xray: patchy vwwii-sxvfyuz-diyk-left bibasilar opacities, favoring infection 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 Patient has been accepted at [facility], pending authorization. Critical care time 64 minutes excluding procedure. Code status discussed greater than 20 minutes: Full CODE STATUS. Family at bedside explained about the condition of the patient Plan discussed with Dr. Briggs Plan discussed with: Daughter, Other (Nurses) My Orders My Orders Orders - GRACE LOPEZ RESIDENT Procedure Category Date Status Time Cleanse Wound With SAMMY 04/27/25 In Process Wound Clean 18:53 * Policy Analyst CONS 04/27/25 Transmitted Consult Chest Xray 1 View XY 04/28/25 Resulted 04:00 Dietary Evaluation Review Comments: 1) If patient remains NPO > 7 days, consider EN/TPN to meet at least 75% estimated daily needs 2) If gut is preferred, initiate Vital High Protein @ 40 mL/hr goal rate as tolerated. Flush with 50 mL free H2O Q6H. EN regimen will provide 960 kcals, 84g Pro, and 1003 mL free H2O (including TF flushes) per 24 hrs. Goal rate will meet ~ 95% estimated energy needs and ~ 93% estimated protein needs 3) Advance to cardiac diet when medically feasible, pending ST approval 4) Refer to outpatient RD for weight management 5) Follow-up with cardiology and pulmonology 6) Continue to monitor I&O, labs, and skin integrity Expected Outcomes/Goals: 1) patient to receive nutritional support within 7 days of NPO status 2) labs to improve 3) diet to advance 4) gradual wt gain 5) f/u in 2-3 days Date of Service: Apr 28, 2025 Billing Provider: REBECCA BRIGGS MD Common Visit Codes: 66651-[id number] CARE 30-74 MIN GRACE LOPEZ RESIDENT Apr 28, 2025 11:21 REBECCA BRIGGS MD Apr 29, 2025 15:31
[2025-04-28] MEDS: VORICONAZOLE IV ONE (15:10)
[2025-04-28] MEDS: D5W 5% IV ONE (15:10)
--- NOTE | 2025-04-28 15:25 | DVHPN2 ---
Progress Note Date Seen: Apr 28, 2025 Resident Creating Document: GENE ALEXANDER RESIDENT Medical Necessity Reason Pt with a Central, PICC or Fol: Yes The following are medically ne: PICC Line, Chin Catheter Subjective Review of Systems Ms. López a 59 year old female with PMHx HFrEF, COPD, GERD, and hyperlipidemia, was intubated on 04/03/25, underwent tracheostomy 04/24 GI consultation for PEG tube placement Patient seen and examined. On T collar 10 L. hemoglobin downtrending to 8.2. WBC downtrending to 15. Platelets 39. Off pressors and sedatives. Gross hematuria noted on examination. Overnight head CT was ordered which was unremarkable. Received 1 platelet transfusion overnight. Objective vital signs Vital Sign Date Time Temp Pulse Resp B/P (MAP) Pulse Ox O2 Delivery O2 Flow Rate FiO2 04/28/25 14:20 107 19 124/65 (84) 100 30 04/28/25 12:00 Trach Collar 10 04/28/25 12:00 97.7 97.7 Total Intake and Output 04/27/25 04/27/25 04/28/25 15:00 23:00 07:00 Intake Total 407 ml 640 ml 751 ml Output Total 250 ml 350 ml Balance 407 ml 390 ml 401 ml medications Current Medications Medications Dose Ordered Sig/Guy Route Start Time Stop Time Status Last Admin Dose Admin Norepinephrine Bitartrate 250 ml @ 3.75 mls/hr Q24H IV 04/03/25 10:00 UNV Fat Emulsion Intravenous 50 ml/ Sodium Chloride 40 meq/Potassium Chloride 20 meq/ Potassium Phosphate 44 meq/ Calcium Gluconate 2.3 meq/Magnesium Sulfate 8 meq/ Multivitamins 10 ml/Chromium/ Copper/Manganese/ Zinc 1 ml/Amino Acids/Dextrose/ Purified Water 1,047.9462 ml @ 44 mls/hr [id number] IV 04/06/25 22:00 04/06/25 22:00 Cancel Sodium Chloride 10 ml QSHIFT@10,22 IV 04/09/25 22:00 04/28/25 09:27 10 ML Vancomycin HCl 0 ml @ 0 mls/hr PER PHARMACY IV 04/16/25 12:15 Cancel Ipratropium [place] 0.5 mg Q6HR NEB 04/16/25 18:00 04/28/25 11:37 0.5 MG Levalbuterol HCl 1.25 mg Q6HR NEB 04/16/25 18:00 04/28/25 11:37 1.25 MG Enteral Nutritional Formula 1,000 ml 30ML/HR GT 04/18/25 09:15 04/23/25 04:57 1,000 ML Midazolam HCl 100 ml @ 1 mls/hr Q24H IV 04/22/25 15:45 Fentanyl Citrate 250 ml @ 2.5 mls/hr Q24H IV 04/22/25 15:45 04/25/25 11:25 7.5 MLS/HR Pantoprazole Sodium 40 mg DAILY IV 04/22/25 17:51 04/28/25 09:27 40 MG Meropenem 50 ml @ 17 mls/hr Q8HR IV 04/23/25 14:00 UNV Purified Water 200 ml Q6HR GT 04/23/25 18:00 04/28/25 15:10 200 ML Meropenem 50 ml @ 17 mls/hr Q12H IV 04/23/25 23:00 04/28/25 15:10 17 MLS/HR Acetaminophen 650 mg Q4HP PRN GT 04/26/25 17:00 04/28/25 09:27 650 MG Voriconazole 160 mg/Dextrose 266 ml @ 133 mls/hr Q12HR IV 04/28/25 22:00 Morphine Sulfate 1 mg Q4HP PRN IV 04/27/25 18:15 Examination Patient lying in bed, in no acute distress General: Female patient, afebrile, palor, mucosae are moist Cardiovascular: Regular S1 and S2. No murmurs, gallops or rubs. No JVD elevation. No pedal edema Respiratory: On Tracheostomy Mechanical ventilation Abdomen: Soft, nontender, nondistended, normoactive bowel sounds, no rebound tenderness, no organomegaly, no masses Genitourinary: Deferred laboratory and microbiology Laboratory Tests 04/28/25 03:08 Test 04/28/25 03:08 Range/Units Serum Glucose 92 74-106 mg/dL Microbiology Date/Time Source Procedure Growth Status 04/15/25 20:17 Sputum Gram Stain - Final Complete 04/15/25 20:17 Sputum Respiratory Culture - Final Complete 04/12/25 22:58 Stool Stool Culture - Final Complete 04/12/25 22:58 Stool Shiga Toxin I & II - Final Complete 04/05/25 08:00 Nose MRSA Screen - Final Complete 04/02/25 20:04 Blood Blood Culture - Final NO GROWTH AFTER 5 DAYS OF INCUBATION. Complete Labs and/or images reviewed: Labs reviewed by me, Image(s) reviewed by me Problem List/Assessment/Plan Problem List/Assessment/Plan Acute metabolic/hypoxic encephalopathy likely due to COPD exacerbation, improving Sepsis likely due to pneumonia/COPD Acute on chronic hypoxic respiratory failure Acute COPD exacerbation/ pneumonia s/p tracheostomy Thrombocytopenia status was 1 platelet transfusion Chronic diastolic Congestive heart failure Anemia chronic disease Cachexia Severe Protein malnutrition Plan: Dr. Mcguire: Patient will be scheduled for PEG tube placement later this week. Patient will require platelet transfusion prior to the procedure. WBC count decreasing, H&H downtrending, monitor H&H and platelets Continue Protonix 40 mg IV daily Avoid NSAIDs Continue enteral nutrition Rest of management per primary team Thank you for consulting GI Plan discussed with nurse felisa in which all questions have been answered Case discussed with Dr. Mcguire Plan discussed with: Patient Dietary Evaluation Review Comments: 1) If patient remains NPO > 7 days, consider EN/TPN to meet at least 75% estimated daily needs 2) If gut is preferred, initiate Vital High Protein @ 40 mL/hr goal rate as tolerated. Flush with 50 mL free H2O Q6H. EN regimen will provide 960 kcals, 84g Pro, and 1003 mL free H2O (including TF flushes) per 24 hrs. Goal rate will meet ~ 95% estimated energy needs and ~ 93% estimated protein needs 3) Advance to cardiac diet when medically feasible, pending ST approval 4) Refer to outpatient RD for weight management 5) Follow-up with cardiology and pulmonology 6) Continue to monitor I&O, labs, and skin integrity Expected Outcomes/Goals: 1) patient to receive nutritional support within 7 days of NPO status 2) labs to improve 3) diet to advance 4) gradual wt gain 5) f/u in 2-3 days GENE ALEXANDER RESIDENT Apr 28, 2025 15:25
[2025-04-28] MEDS ORDERED: Jevity 1.2 Cal/Fiber 1 Liter GT SCH (16:15)
[2025-04-28] MEDS: D5W 5% IV SCH (22:08)
[2025-04-28] MEDS: VORICONAZOLE IV SCH (22:08)
[2025-04-29] VITALS (65 sets, daily range): BP systolic 77–133; BP diastolic 32–73; PULSE 97–116; RESP 15–26; TEMP 97.5–98.1; O2SAT 92–100
[2025-04-29 03:46] LABS: Hemoglobin 8.0 g/dL (12.2-16.2); Mean Corpuscular Hemoglobin 31.5 pg (28.0-32.0); Nucleated Red Blood Cells % 0.0 %
[2025-04-29 03:47] LABS: Hematocrit 23.5 % (36.0-46.0); Mean Corpuscular Volume 92.9 fL (80.0-100.0)
[2025-04-29 04:05] LABS: Alanine Aminotransferase 29 U/L (7-40); Anion Gap 11 (5-15); BUN/Creatinine Ratio 45.6 (10.0-20.0); Carbon Dioxide 23 mmol/L (20-31); Chloride 106 mmol/L (98-107); Potassium 4.6 mmol/L (3.5-5.1); Sodium 140 mmol/L (136-145)
[2025-04-29 04:09] LABS: Albumin 2.2 g/dL (3.2-4.8); Alkaline Phosphatase 150 U/L (46-116); Bilirubin, Total 0.3 mg/dL (0.2-1.0); Blood Urea Nitrogen 57 mg/dL (9-23); Calcium 7.3 mg/dL (8.7-10.4); Glucose 124 mg/dL (74-106); Total Protein 3.9 g/dL (5.7-8.2)
[2025-04-29 04:29] LABS: INR 1.01 (0.9-1.15); Partial Thromboplastin Time 49.7 SEC (24.5-34.5); Prothrombin Time 10.7 sec (9.3-11.8)
--- NOTE | 2025-04-29 05:16 | DVH ---
CHEST RADIOGRAPH Indication: Tracheostomy Technique: Single frontal view of the chest was obtained COMPARISON: XY CHEST XRAY 1 VIEW on DOS: 04/28/25, XY CHEST XRAY 1 VIEW on DOS: 04/27/25, XY CHEST PORTABLE on DOS: 04/26/25, XY CHEST XRAY 1 VIEW on DOS: 04/25/25, XY CHEST PORTABLE on DOS: 04/24/25 FINDINGS: Lines and Tubes: Tracheostomy and enteric catheter in satisfactory position. Lungs: Hyperinflated suggestive of COPD. Bilateral lower lobe airspace disease. Mild congestion. Pleura: Possible small left pleural effusion. No pneumothorax. Cardiomediastinal contours: Unremarkable Bones: Unremarkable IMPRESSION: Tracheostomy and enteric catheter in satisfactory position. Hyperinflated lungs suggestive of COPD. Bilateral lower lobe airspace disease. Mild congestion. Possible small left pleural effusion.
[2025-04-29 07:47] LABS: Base Excess -2.8 mmol/L (-2.0-3.0)
[2025-04-29] MEDS ORDERED: Jevity 1.2 Cal/Fiber 1 Liter GT SCH (09:45)
--- NOTE | 2025-04-29 10:26 | DVHDSRES ---
Discharge Summary Date of Admission Resident Creating Document: GRACE LOPEZ RESIDENT Apr 02, 2025 at 23:56 Date of Discharge: Apr 29, 2025 Admitting Diagnosis Acute on Chronic Respiratory Failure secondary to Pneumonia and COPD exacerbation Wounds: Multiple skin tears noted along bilateral arms, sacrum, and posterior surface of left leg Labs/Diagnostic Data: Laboratory Results Test 04/29/25 09:38 04/29/25 07:27 04/29/25 03:10 04/26/25 09:25 Stool Occult Blood Negative (Negative) Stool Occult Blood Sample #3 (Negative) Blood Gas Specimen Type Arterial Blood Gas Sample Site Left radial Blood Gas Patient Temperature 37.0 Arterial Blood Date Drawn [id number] Arterial Blood pH 7.450 (7.350-7.450) Arterial Blood Partial Pressure CO2 30.3 mmHg (32.0-45.0) Arterial Blood Partial Pressure O2 89.6 mmHg (83.0-108.0) Arterial Blood HCO3 20.6 mmol/L (21.0-28.0) Arterial Blood Oxygen Saturation 95.9 % (94.0-98.0) Arterial Blood Base Excess -2.8 mmol/L (-2.0-3.0) Arterial Blood Oxyhemoglobin 95.1 % (94.0-98.0) Arterial Blood Carboxyhemoglobin 0.1 % (0.5-1.5) Arterial Blood Methemoglobin 0.7 % (0.0-1.5) Alex Test Modified Blood Gas Total Hemoglobin 8.90 g/dL (12.0-16.0) Blood Gas Set Respiration Rate 18.0 Blood Gas Modality Vent - ac FiO2 % 30.0 Blood Gas Tidal Volume 400.0 Blood Gas PEEP or CPAP 5.0 White Blood Count 12.6 10^3/uL (4.4-10.8) Red Blood Count 2.53 10^6/uL (4.0-5.20) Hemoglobin 8.0 g/dL (12.2-16.2) Hematocrit 23.5 % (36.0-46.0) Mean Corpuscular Volume 92.9 fL (80.0-100.0) Mean Corpuscular Hemoglobin 31.5 pg (28.0-32.0) Mean Corpuscular Hemoglobin Concent 33.9 g/dL (32.0-36.0) Red Cell Distribution Width 15.6 % (11.8-14.3) Platelet Count 48 10^3/uL (140-450) Mean Platelet Volume 10.9 fL (6.9-10.8) Neutrophils (%) (Auto) 89.7 % (37.0-80.0) Lymphocytes (%) (Auto) 7.0 % (10.0-50.0) Monocytes (%) (Auto) 2.9 % (0.0-12.0) Eosinophils (%) (Auto) 0.3 % (0.0-7.0) Basophils (%) (Auto) 0.1 % (0.0-2.0) Neutrophils # (Auto) 11.3 10 ^3/uL (1.6-8.6) Lymphocytes # (Auto) 0.9 10 ^3/uL (0.4-5.4) Monocytes # (Auto) 0.4 10 ^3/uL (0-1.3) Eosinophils # (Auto) 0 10 ^3/uL (0-0.8) Basophils # (Auto) 0 10 ^3/uL (0-0.2) Nucleated Red Blood Cells 0.0 % Prothrombin Time 10.7 sec (9.3-11.8) Prothrombin Time INR 1.01 (0.9-1.15) Activated Partial Thromboplast Time 49.7 SEC (24.5-34.5) Sodium Level 140 mmol/L (136-145) Potassium Level 4.6 mmol/L (3.5-5.1) Chloride Level 106 mmol/L (98-107) Carbon Dioxide Level 23 mmol/L (20-31) Anion Gap 11 (5-15) Blood Urea Nitrogen 57 mg/dL (9-23) Creatinine 1.25 mg/dL (0.550-1.02) Glomerular Filtration Rate Calc 49 mL/min (>90) BUN/Creatinine Ratio 45.6 (10.0-20.0) Serum Glucose 124 mg/dL (74-106) Calcium Level 7.3 mg/dL (8.7-10.4) Total Bilirubin 0.3 mg/dL (0.2-1.0) Aspartate Amino Transferase (AST) 27 U/L (13-40) Alanine Aminotransferase (ALT) 29 U/L (7-40) Alkaline Phosphatase 150 U/L (46-116) Total Protein 3.9 g/dL (5.7-8.2) Albumin 2.2 g/dL (3.2-4.8) Blood Gas Pressure Support 8 Test 04/26/25 02:50 04/25/25 20:00 04/23/25 08:24 04/20/25 09:10 Random Vancomycin Level 21.6 ug/mL (5-10) Magnesium Level 1.9 mg/dL (1.6-2.6) Urine Color Brown (Yellow) Urine Clarity Bloody (Clear) Urine pH 5.0 (5.0-9.0) Urine Specific Adger 1.025 (1.001-1.035) Urine Protein 3+ (Negative) Urine Ketones 1+ (Negative) Urine Blood 4+ /uL (Negative) Urine Nitrite Positive (Negative) Urine Bilirubin Negative (Negative) Urine Urobilinogen Normal mg/dL (Negative) Urine Leukocyte Esterase 1+ /uL (Negative) Urine RBC 1940 /hpf (0 - 4) Urine WBC Clumps Present /hpf (None Seen) Urine Microscopic WBC 147 /HPF (0-5) Urine Squamous Epithelial Cells None seen /hpf (<5) Urine Amorphous Crystals Few /hpf (None Seen) Urine Bacteria None seen /hpf (None Seen) Urine Glucose Normal mg/dL (Normal) Vancomycin Level Trough 11.3 ug/mL (5-10) Test 04/19/25 03:05 04/17/25 14:51 04/17/25 06:44 04/15/25 19:20 Phosphorus Level 2.5 mg/dL (2.4-5.1) Platelet Estimate Decreased Hypochromasia (manual) Slight Blood Gas Spontaneous Rate 22 Lactic Acid Level 0.9 mmol/L (0.4-2.0) Troponin I High Sensitivity 14 ng/L (</=34) B-Type Natriuretic Peptide 78.25 pg/mL (0-100) Test 04/15/25 19:10 04/15/25 18:55 04/14/25 08:25 04/13/25 11:34 D-Dimer, Quantitative 2.93 mg/L FEU (0.0-0.49) POC Glucose 159 mg/dl (70-106) Blood Gas Liter Flow 2.00 Blood Gas Spontaneous Tidal Volume 323 Test 04/07/25 12:55 04/07/25 03:07 04/05/25 19:51 04/05/25 14:59 Iron Level 33 ug/dL (50-170) Total Iron Binding Capacity 174 ug/dL (250-425) Percent Iron Saturation 19.0 % (15-50) Hemoglobin A1c 5.3 % A1C (<5.7) Miscellaneous Referred Test (Rm Tmp Sent to [facility] Triglycerides Level 100 mg/dL (< 150) Test 04/03/25 11:30 04/03/25 07:18 04/02/25 20:38 04/02/25 20:13 Blood Gas Critical Value Read Back yes Blood Gas Notified Whom simeon perales Blood Gas Notified Time [id number] Blood Gas Notified By richardson queen Differential Total Cells Counted 100.0 (100) Neutrophils % (Manual) 86 (37.0-80.0) Band Neutrophils % (Manual) 6 Lymphocytes % (Manual) 4 (10.0-50.0) Monocytes % (Manual) 4 (0-12) Eosinophils % (Manual) 0 (0-7) Basophils % (Manual) 0 (0.0-2.0) Metamyelocytes % (manual) 0 Myelocytes % (Manual) 0 Promyelocytes % (Manual) 0 Blast Cells % (Manual) 0 Reactive Lymphocytes 0 Urine Mucus Few (None Seen) Urine Opiates Screen Neg (NEGATIVE) Urine Fentanyl Screen Neg (NEGATIVE) Urine Barbiturates Screen Neg (NEGATIVE) Urine Phencyclidine Screen Neg (NEGATIVE) Urine Amphetamines Screen Neg (NEGATIVE) Urine Benzodiazepines Screen Neg (NEGATIVE) Urine Cocaine Screen Neg (NEGATIVE) Urine Cannabinoids Screen Neg (NEGATIVE) Influenza Type A Antigen Negative (Negative) Influenza Type B Antigen Negative (Negative) SARS-CoV-2 Antigen (Rapid) Negative (NEGATIVE) Test 04/02/25 20:04 Lipase 19 U/L (12-53) Plasma/Serum Blood Alcohol < 3.0 mg/dL (<10) Other Laboratory Tests 04/29/25 03:10 Brief Hx & Hospital Course: Ms. Mueller is a 59 year old female with PMHx HFrEF,COPD on home oxygen at 2 L NC, GERD, and hyperlipidemia, who presented to [facility] with chief complaint of shortness of breath. Per EMS she was found to be saturating 70% requiring albuterol breathing treatment and supplemental oxygen at 6L improving to 94% en route. On evaluation in the ED, she was found to be she was cachectic, tachycardic, and hypotensive. Initial labs showed leukocytosis wwith WBCs of 22.5 and associated neutrophilia and mild hyponatremia. Chests Xray showed patchy right greater than left bibasilar opacities, favoring infection. The patient was started on breathing treatments, IV methylprednisolone, IV fluids, and IV anitbiotic therapy with azithromycin and metronizadole. She was admitted for further managament of acute on chronic respiratory failure secondary to acute COPD exacerbation and pneumonia. On further evaluation, the patient was observed to have signs of respiratory distress for which she was intubated on 04/03/2025. Pulmonoloy and infectious disease for control of pneumonia and respiratory failure. Neurology was for evaluation of anisocoria, for which head CT showed no acute intracranial abnormalities. Blood cultures were drawn and were negative. Initial sputum culture grew filamentous fungi. Patient was given IV metronidazole, doxycylcine, cefepime, micafungin, and fluconazole. The patient was started on Voriconazole due to suspicion of aspergillus. Chest CT showed lower lobe consolidation, multiple small foci, severe centrilobar emphysema. The patient was successfully extubated on 04/13/2025, however, required reintubation on 04/15/2025 due respiratory distress. She required vasopressor support vasopressin, phenylnephrine, and levophed. The patient failed multiple CPAP trials, resulting in tracheostomy placement on 04/24/2025. She failed the first trach collar trial, however, has was able to tolerate 5 hours during second trial. Throughout admission, patient's hemoglobin and platelets continued to downtrend, requiring transfusion of 1 PRBC and platelets. She has been accepted att [facility] for continued management. Physical Exam: General: Patient is alert, cachectic, with tracheostomy connected to vent HEENT: Normocephalic, atraumatic, left anisocoria is noted, pupils reactive to light, dry mucous membranes, poor dentition Respiratory/pulmonary: Bilateral chest expansion, bruising noted on mid upper chest, on tracheostomy connected to vent, clear lungs bilaterally, vesicular murmurs present in almost all lung galan, no associated crackles or wheezes. Cardiovascular: Normal RRR, normal S1 and S2, no murmurs Abdomen: Abdomen nondistended, normal bowel sounds, soft, there is no pain to palpation in any of the abdominal quadrants : Presence of Chin draining bloody urine Extremities: Bilateral arms are covered by gauze wrapping with presence of multiple skin tears with serous secretions, bilateral lower extremity pitting edema +1 reaching above ankles, presence of picc line in inner left arm Skin: Presence of multiple skin tears, redness noted on sacrum and upper back, blistering is noted on anterior surface of left calf, small skin tear noted on posterior aspect of left calf Neurological: Intact cranial nerves with no focal neurologic deficits Case discussed with Dr. Light Goals of care and transfer discussed with the patient's daughter. Critical care time 71 minutes. Consults/Reason for consult Pulmonology was consulted for evaluation due to respiratory failure Infectious disease was consulted for evaluation of pneumonia given cultures growing filamentous fungi Neurology was consulted for evaluation of anisocoria. GI was consulted for evaluation for PEG tube placement hotel services supervisor were consulted for transfer to LTAC Operations or Procedures PROCEDURE(s): ORDER NUMBER(s): , ACCESSION NUMBER(s): Central Line Recorder of insertion practice: Warehouse Laborer Occupation of associate professor of management: Attending Physician Indication: Hypotension, CVP monitoring Room prepared for procedure: Yes Warehouse Laborer performed hand hygien: Yes Maximal sterile barrier precau: Mask/Eye shield, Sterile gown Skin Preparation: Chlorhexidine gluconate, Providine iodine Skin preparation completely dr: Yes Insertion site: Right, Femoral Central line catheter type: Htv-[id number] dialysis Number of lumens: 3 Antiseptic ointment applied to: Yes Intubation Indication: Respiratory Insufficiency Prep: Preoxygenation Pretreated with: Sedation Medicated with: Vecuronium Intubation Approach: Orotracheal Intubation size: cm (8) Date of Service: Apr 03, 2025 Billing Provider: LEAH PLASCENCIA MD Common Visit Codes: [id number] INP/OBS CARE (HIGH) Secondary Visit Codes: [id number] STANDBY SERVICE Consultation Codes: 40507-[id number] CONSULT <45MIN Procedure Codes: [id number] Central Line Recorder of insertion practice: Warehouse Laborer Occupation of associate professor of management: Name of associate professor of management (Dr malagon) Indication: Hypotension, Volume resuscitation Room prepared for procedure: Yes Warehouse Laborer performed hand hygien: Yes Maximal sterile barrier precau: Mask/Eye shield, Sterile gown, Cap, Sterlie gloves, Large sterlie drape Skin Preparation: Chlorhexidine gluconate, Alcohol Skin preparation completely dr: Yes Insertion site: Right, Internal jugular Central line catheter type: Uvn-mfzfkfhg-[id number] dialysis Number of lumens: 3 Central line exchanged over a: No Antiseptic ointment applied to: No Post Assessment: Chest X-Ray, Proper placement, No Pneumothorax Informed consent obtained: Yes Notes Emergent procedure. Medically necessary for administration of vaso-active medications. DESCRIPTION OF PROCEDURE IN DETAIL: The patient was lying in the Trendelenburg position with head turned 30 degrees away from the insertion site. The skin was thoroughly sponged with chlorhexidine and allowed to dry. All persons involved were shielded with hair nets, face masks and sterile gowns. With sterile-gloved hands the right neck area was draped with the large disposable sterile field provided in the pre-manufactured kit. The skin and subcutaneous tissues superficial to the RIGHT internal jugular vein were anesthetized with 2 mL of 1% lidocaine. The RIGHT internal jugular vein was identified on ultrasound from the angle of the mandible down into the supraclavicular fossa using the linear ultrasound probe in the transverse orientation. The carotid artery was identified and avoided utilizing color-flow. The internal jugular vein was then placed in the center of the ultrasound field and compressed for patency. A movement artifact was identified as the needle was advanced through the skin and advanced toward the vessel. A real time hyperechoic signal revealed visualization of vascular needle entry into the lumen as blood was noted to flashback in the syringe. The needle was then held in place while the guide wire was advanced. The needle was then removed. Direct visualization of guide wire location within the vein was noted on ultrasound indicating proper placement and was document in the electronic medical record chart. A skin dilator was advanced over the guidewire and removed, and the triple-lumen catheter was then advanced over the guide wire into proper position. The guide wire was removed and discarded. The ports were aspirated which showed good blood return and then carefully flushed with normal saline. The catheter was stabilized and sutured to the skin at 2 anchor points. A sterile bio-patch and dressing was placed over the catheter, including the insertion site. The patient tolerated the procedure well. A chest x-ray was ordered for position confirmation. Post-procedure chest x-ray appropriate position. No pneumothorax. DATE OF SURGERY: 04/24/2025 PREOPERATIVE DIAGNOSIS: Ventilator-dependent respiratory failure. POSTOPERATIVE DIAGNOSIS: Ventilator-dependent respiratory failure. SURGEON: Ishan Sutton MD MANAGER ERP: Renan Rivera NP ANESTHESIA: General. ANESTHESIOLOGIST: Dustin Bhatti. PROCEDURE: Tracheostomy. DESCRIPTION OF PROCEDURE: Under general anesthesia with the patient's skin prepped and draped, an infiltration with 0.25% Marcaine with epinephrine was accomplished into the anterior cervical skin. Incision was made through the skin. The skin has the consistency of wet toilet paper and tears with the least manipulation. Huge preexisting ecchymoses on the skin of the chest and neck were present. Through the skin incision, subcutaneous tissues were divided down onto the trachea. Strap muscles being reflected laterally. The thyroid was displaced superiorly. The third and fourth ring of the trachea were cleansed. An incision was made between those two rings and the tracheotomy was dilated. Through the tracheotomy, the size 8 endotracheal tracheostomy tube was placed as the anesthesiologist ventilated the patient on room air and withdrew the tracheostomy endotracheal tube. Tracheostomy reaching its final position, there was an immediate recapture of CO2 and returned to normal exchange of gases. The balloon was insufflated with 7 mL of air. The tracheostomy was secured with two separate 2-0 Prolene sutures and a circumferential umbilical tape. The patient remained in unchanged clinical condition at the termination of the procedure and chest x-ray ordered pending at the time of this dictation. Intubation Indication: Altered Mental Status, Airway Protection Prep: Preoxygenation Pretreated with: Analgesia, Sedation Medicated with: Other (Rocuronium, Etomidate) Intubation Approach: Orotracheal Intubation size: cm (7) Informed consent obtained: No (Emergent procedure) Notes Intubation was performed with the help of GlideScope, procedure supervised by Dr Isauro Gudino MD. Date of Service: Apr 15, 2025 CLINICAL HISTORY: AMS TECHNIQUE: Single view of the chest was obtained. COMPARISON: CT CHST AB PEL WO CON-NO IV/ORAL on DOS: 02/27/23, CXRP on DOS: 02/07/22, CHEST PORTABLE on DOS: 02/07/22, CHEST PORTABLE on DOS: 01/23/22, CHEST PORTABLE on DOS: 09/08/20 FINDINGS: The heart size and pulmonary vasculature are normal. There are patchy tutuq-bfrplwb-vucr-left bibasilar opacities. IMPRESSION: Patchy cdldx-xvxnsnh-ttli-left bibasilar opacities, favoring infection. EXAM: CT HEAD WITHOUT CONTRAST INDICATION: Unequal pupils r/o stroke. TECHNIQUE: CT of the head without intravenous contrast. Coronal and sagittal reformatted images are submitted. Radiation Dose : 1. Head: CT Dose: CTDI volume is 52.1 mGy. Dose-length product is 1026.99 mGy*cm The dose indicators for CT are the volume Computed Tomography (CT) Dose Index (CTDIvol) and the Dose Length Product (DLP), and are measured in units of mGy and mGy-cm, respectively. These indicators are not patient dose, but values generated from the CT scanner acquisition factors. The report includes radiation exposure data for exposures received during this examination. All CT scans at this medical facility are performed using dose modulation techniques as appropriate to a performed exam including the following: Automated exposure control was utilized; adjustment of the MA and/or KV according to patient size; and use of iterative reconstruction technique. COMPARISON: CT HEAD WITHOUT CONTRAST on DOS: 02/28/23 FINDINGS: There is no evidence of acute intracranial hemorrhage, extra-axial collection, mass effect, midline shift, herniation or hydrocephalus. There are periventricular and subcortical hypodensities, nonspecific, but likely reflecting sequelae of chronic microvascular ischemic changes. The ventricles, sulci and cisterns are age appropriate. The cespedes-white differentiation is intact. The visualized paranasal sinuses and mastoid air cells are clear. No depressed calvarial fracture. The surrounding soft tissues are unremarkable. IMPRESSION: 1. No evidence of acute intracranial abnormality. 2. Mild subcortical and periventricular low attenuation, nonspecific but most commonly associated with sequelae of chronic microvascular ischemic changes although other etiologies are not excluded. Procedure: CT CHEST WITHOUT CONTRAST Reason for study/Clinical History: Anisocoria. Comparison Study: XY CHEST XRAY 1 VIEW on DOS: 04/07/25 Exam Date: 04/07/2025 04:10 AM TECHNIQUE: Multidetector CT of the chest was performed from the lung apices to the upper abdomen without the use of intravenous contract. Axial, coronal and sagittal multiplanar reformats were performed. Radiation Dose Information: CT Dose: CTDI volume is 4.56 mGy. Dose-length product is 168.5 mGy*cm The dose indicators for CT are the volume Computed Tomography (CT) Dose Index (CTDIvol) and the Dose Length Product (DLP), and are measured in units of mGy and mGy-cm, respectively. These indicators are not patient dose, but values generated from the CT scanner acquisition factors. The report includes radiation exposure data for exposures received during this examination. FINDINGS: Lower neck: Normal thyroid. Lungs: Severe centrilobular emphysema. There is consolidation in the left lower lobe. Multiple smaller nodular foci demonstrated in the left lower lobe. Central airways: Patent. Pleura: No pleural effusion or significant pneumothorax. Heart/Vascular Structures: Normal heart size. No pericardial effusion. Coronary artery calcifications noted. Normal caliber thoracic aorta and main pulmonary artery Lymph Nodes: No adenopathy Musculoskeletal: The bones are demineralized. There is a severe compression deformity of the T5-L1 vertebral bodies. There is body wall anasarca. Soft tissues: Normal. Upper abdomen: Limited portions of the upper abdomen are unremarkable. IMPRESSION: 1. Left lower lobe consolidation and multiple smaller nodular foci. Findings are concerning for pneumonia. 2. Severe centrilobular emphysema. 3. Severe compression deformities of the T5-L1 vertebral bodies of indeterminate age. Radiation optimization: All CT scans at this facility use at least one of these dose optimization techniques: automated exposure control mA and/or kV adjustment per patient size (includes targeted exams where dose is matched to clinical indication) or iterative reconstruction. Examination: XY KUB ABDOMEN SINGLE VIEW History: Possible Stool Impaction Comparison: XY PELVIS AP on DOS: 03/03/23 TECHNIQUE: Frontal views of the abdomen was obtained. FINDINGS: Nonspecific gas-filled loops of colon. Enteric tube projects over the expected region of the stomach which appears distended. Catheter projects over the expected region of the right lower quadrant. Chin catheter projects over the mid pelvis. The lung bases are unremarkable. No acute osseous abnormality identified. IMPRESSION: Nonspecific gas-filled loops of colon. Enteric tube projects over the expected region of the stomach which appears distended. Clinical History: PICC LINE PLACEMENT Comparison: US ECHO 2D MODE CARDIAC DOP on DOS: 04/01/25, MRI BRAIN HEAD WO CONTRAST on DOS: 04/01/25, CT CHST AB PEL WO CON-NO IV/ORAL on DOS: 03/31/25, CT CERVICAL WITHOUT CONTRAST on DOS: 03/31/25, CT HEAD WITHOUT CONTRAST on DOS: 03/31/25 Findings: Targeted sonographic evaluation of the arm vein was obtained utilizing grayscale and color Doppler imaging. IMPRESSION: Sonographic assistance for peripherally inserted central line placement. Please refer to procedural report for detailed findings. CHEST RADIOGRAPH Indication: on vent Technique: Single frontal view of the chest was obtained COMPARISON: XY CHEST XRAY 1 VIEW on DOS: 04/10/25, XY CHEST XRAY 1 VIEW on DOS: 04/09/25, XY CHEST XRAY 1 VIEW on DOS: 04/08/25, XY CHEST PORTABLE on DOS: 04/07/25, XY CHEST XRAY 1 VIEW on DOS: 04/07/25 FINDINGS: Lines and Tubes: Unchanged. Lungs: Stable small bilateral pleural effusions and chronic appearing bilateral interstitial pulmonary markings. No evidence of focal consolidation. No pneumothorax. Cardiomediastinal contours: Unremarkable Bones: Unremarkable. Subacute to chronic appearing right humeral head and surgical neck fracture noted. IMPRESSION: 1. Stable small bilateral pleural effusions and chronic appearing bilateral interstitial pulmonary markings. 2. Lines and tubes unchanged. CHEST RADIOGRAPH Indication: on vent Technique: Single frontal view of the chest was obtained COMPARISON: XY CHEST XRAY 1 VIEW on DOS: 04/12/25, XY CHEST XRAY 1 VIEW on DOS: 04/11/25, XY CHEST XRAY 1 VIEW on DOS: 04/10/25, XY CHEST XRAY 1 VIEW on DOS: 04/09/25, XY CHEST XRAY 1 VIEW on DOS: 04/08/25 FINDINGS: Lines and Tubes: Slight interval retraction of endotracheal tube such that the tip now projects approximately 5.4 cm above the level of the vani. Remaining lines and tubes unchanged. Lungs: Clear. Right apex obscured by the patient's lowered to chin. Pleura: No effusion. No pneumothorax. Cardiomediastinal contours: Unremarkable Bones: Unremarkable IMPRESSION: 1. Slight interval retraction of endotracheal tube such that the tip now projects approximately 5.4 cm above the level of the vani. Remaining lines and tubes unchanged. 2. Otherwise no significant change compared to prior exam. CHEST RADIOGRAPH Indication: on vent Technique: Single frontal view of the chest was obtained COMPARISON: XY CHEST XRAY 1 VIEW on DOS: 04/14/25, XY CHEST XRAY 1 VIEW on DOS: 04/13/25, XY CHEST XRAY 1 VIEW on DOS: 04/12/25, XY CHEST XRAY 1 VIEW on DOS: 04/11/25, XY CHEST XRAY 1 VIEW on DOS: 04/10/25 FINDINGS: Lines and Tubes: Left PICC in satisfactory position. Lungs: Lungs are hyperinflated suggestive of COPD. Increased right lower lobe airspace disease. Pleura: No effusion. No pneumothorax. Cardiomediastinal contours: Unremarkable Bones: Unremarkable IMPRESSION: Increased right lower lobe airspace disease. CHEST RADIOGRAPH Indication: intubation Technique: Single frontal view of the chest was obtained COMPARISON: XY CHEST PORTABLE on DOS: 04/15/25, XY CHEST XRAY 1 VIEW on DOS: 04/15/25, XY CHEST XRAY 1 VIEW on DOS: 04/14/25, XY CHEST XRAY 1 VIEW on DOS: 04/13/25, XY CHEST XRAY 1 VIEW on DOS: 04/12/25 FINDINGS: ET tube tip terminating 4.7 cm above the vani. Left-sided PICC line with tip near the cavoatrial junction. Stable small to moderate right-sided pleural effusion with hazy opacity throughout the right mid and lower lung. Left lung remains generally clear. No significant pneumothorax. IMPRESSION: ET tube tip terminating 4.7 cm above the vani. Stable right-sided pleural effusion with right basilar atelectasis /consolidation. CHEST RADIOGRAPH Indication: decreased OXYGEN Technique: Single frontal view of the chest was obtained COMPARISON: XY CHEST XRAY 1 VIEW on DOS: 04/15/25, XY CHEST XRAY 1 VIEW on DOS: 04/15/25, XY CHEST PORTABLE on DOS: 04/15/25, XY CHEST XRAY 1 VIEW on DOS: 04/15/25, XY CHEST XRAY 1 VIEW on DOS: 04/14/25 FINDINGS: ET tube tip terminating 4.5 cm above the vani. Lungs appear hyperinflated. Stable mixed interstitial and ground-glass opacity throughout the right lung as well as within the left mid and lower lung. No new airspace disease, large pleural effusion, or other adverse interval change. IMPRESSION: ET tube has been advanced slightly. Otherwise stable findings. CHEST RADIOGRAPH Indication: RIGHT PNEUMONIA Technique: Single frontal view of the chest was obtained COMPARISON: XY CHEST XRAY 1 VIEW on DOS: 04/15/25, XY CHEST XRAY 1 VIEW on DOS: 04/15/25, XY CHEST XRAY 1 VIEW on DOS: 04/15/25, XY CHEST PORTABLE on DOS: 04/15/25, XY CHEST XRAY 1 VIEW on DOS: 04/15/25 FINDINGS: Lines and Tubes: Unchanged. Lungs: Mild interval progression in Small bilateral pleural effusions and Bibasilar pulmonary airspace disease. No pneumothorax. Cardiomediastinal contours: Unremarkable Bones: Unremarkable IMPRESSION: 1. Mild interval progression in small bilateral pleural effusions and bibasilar pulmonary airspace disease. 2. Lines and tubes unchanged. CLINICAL HISTORY: r/o dvt TECHNIQUE: Color and duplex doppler imaging of the bilateral lower extremity veins was performed. Vessel compression if possible was also performed. WID: COMPARISON: None FINDINGS: Right Lower Extremity: Right common femoral vein: Normal compressibility and flow. Right femoral vein: Normal compressibility and flow. Right popliteal vein: Normal compressibility and flow. Left Lower Extremity: Left common femoral vein: Normal compressibility and flow. Left femoral vein: Normal compressibility and flow. Left popliteal vein: Normal compressibility and flow. IMPRESSION: 1. NO SONOGRAPHIC EVIDENCE FOR DEEP VENOUS THROMBOSIS IN THE BILATERAL LOWER EXTREMITY VEINS. EXAM: XY CHEST PORTABLE HISTORY: NGT PLACEMENT TECHNIQUE: 1 view of the chest COMPARISON: XY CHEST XRAY 1 VIEW on DOS: 04/18/25 FINDINGS/IMPRESSION: LUNGS: Significant bibasilar hazy alveolar opacities and interstitial markings with suprahilar prominence of bronchovascular markings correlate for pneumonia which may be aspiration related the appearance is slightly worsened from prior examination. MEDIASTINUM: Unchanged BONES: Unchanged. Appearance of lateral rib fractures. OTHER: Enteric tube 2.6 cm above the vani. Enteric tube extending into the stomach left-sided PICC line with distal tip extending into the right atrium CHEST RADIOGRAPH Indication: on vent Technique: Single frontal view of the chest was obtained COMPARISON: XY CHEST XRAY 1 VIEW on DOS: 04/20/25, XY CHEST XRAY 1 VIEW on DOS: 04/19/25, XY CHEST PORTABLE on DOS: 04/18/25, XY CHEST XRAY 1 VIEW on DOS: 04/18/25, XY CHEST XRAY 1 VIEW on DOS: 04/17/25 FINDINGS: Tracheostomy tube tip terminating 4.5 cm above the vani. NG tube at least in the mid stomach. Left-sided PICC line with tip near the cavoatrial junction. Cardiac silhouette is borderline in size. No overt pulmonary edema. Stable trace bilateral pleural effusions with mild bibasilar atelectatic changes. IMPRESSION: Stable findings. EDICAL RECORDS NUMBER: [id number] PROCEDURE: XY CHEST XRAY 1 VIEW DATE: 04/24/2025 05:35 AM HISTORY: on vent Views:1 COMPARISON: XY CHEST XRAY 1 VIEW on DOS: 04/23/25, XY CHEST XRAY 1 VIEW on DOS: 04/22/25, XY CHEST XRAY 1 VIEW on DOS: 04/21/25, XY CHEST XRAY 1 VIEW on DOS: 04/20/25, XY CHEST XRAY 1 VIEW on DOS: 04/19/25 FINDINGS/IMPRESSION: Lungs: Hypoventilatory changes of the bases particularly on the left. Lungs are hyperexpanded. chronic changes suggestive of COPD. Mediastinum: Mediastinal structures appear unremarkable.A endotracheal tube is seen with the tip projecting approximately 3 cm above the vani.NG tube is seen with the tip projecting over the expected position of the stomach. Left-sided central line projecting over the right atrium Skeletal: The skeletal structures appear unremarkable. CHEST RADIOGRAPH Indication: traceostomy Technique: 1 view Comparison: XY CHEST PORTABLE on DOS: 04/24/25, XY CHEST XRAY 1 VIEW on DOS: 04/24/25, XY CHEST XRAY 1 VIEW on DOS: 04/23/25, XY CHEST XRAY 1 VIEW on DOS: 04/22/25, XY CHEST XRAY 1 VIEW on DOS: 04/21/25 FINDINGS: Lines and Tubes: Unchanged. Lungs/Pleura: Unchanged. Cardiomediastinum: Unchanged. Other: Unchanged osseous structures. IMPRESSION: 1. No significant change from the previous study. Stable support devices. Hazy bilateral infrahilar opacities with possible small pleural effusions. MEDICAL RECORDS NUMBER: [id number] PROCEDURE: XY CHEST XRAY 1 VIEW DATE: 04/27/2025 04:26 AM HISTORY: traheostomy Views:1 COMPARISON: XY CHEST PORTABLE on DOS: 04/26/25, XY CHEST XRAY 1 VIEW on DOS: 04/25/25, XY CHEST PORTABLE on DOS: 04/24/25, XY CHEST XRAY 1 VIEW on DOS: 04/24/25, XY CHEST XRAY 1 VIEW on DOS: 04/23/25 FINDINGS/IMPRESSION: Lungs: The lungs are hyperexpanded and demonstrate chronic changes suggestive of COPD. No acute process is otherwise seen of the lungs. Mediastinum: Mediastinal structures appear unremarkable. Tracheostomy tube is noted.A left-sided central line is seen. The tip projects over the superior vena cava. No pneumothorax is seen. Nasogastric tube courses through the film Skeletal: The skeletal structures appear unremarkable. EXAM: CT HEAD WITHOUT CONTRAST INDICATION: UNEQUAL PUPILS TECHNIQUE: CT images of the head were obtained without administration of IV contrast. CT scans at this facility use dose modulation, iterative reconstruction, and/or weight based dosing when appropriate to reduce radiation dose to as low as reasonably achievable. COMPARISON: CT HEAD WITHOUT CONTRAST on DOS: 04/05/25 FINDINGS: PARENCHYMA: No acute hemorrhage. There is no mass effect, midline shift, or herniation. There is preservation of the cespedes white differentiation. Mild scattered hypoattenuation along the periventricular, centrum semiovale, and deep white matter tracts, which are nonspecific however statistically most likely represent chronic microvascular ischemic change. VENTRICLES: No hydrocephalus. EXTRA-AXIAL SPACES: No extra-axial fluid collections. OTHER: The bony structures are intact. Trace fluid in the right posterior inferior mastoid air cells . Multiple dental cavities. IMPRESSION: 1. No CT evidence of an acute intracranial abnormality. CHEST RADIOGRAPH Indication: Tracheostomy Technique: Single frontal view of the chest was obtained COMPARISON: XY CHEST XRAY 1 VIEW on DOS: 04/28/25, XY CHEST XRAY 1 VIEW on DOS: 04/27/25, XY CHEST PORTABLE on DOS: 04/26/25, XY CHEST XRAY 1 VIEW on DOS: 04/25/25, XY CHEST PORTABLE on DOS: 04/24/25 FINDINGS: Lines and Tubes: Tracheostomy and enteric catheter in satisfactory position. Lungs: Hyperinflated suggestive of COPD. Bilateral lower lobe airspace disease. Mild congestion. Pleura: Possible small left pleural effusion. No pneumothorax. Cardiomediastinal contours: Unremarkable Bones: Unremarkable IMPRESSION: Tracheostomy and enteric catheter in satisfactory position. Hyperinflated lungs suggestive of COPD. Bilateral lower lobe airspace disease. Mild congestion. Possible small left pleural effusion. Condition at Discharge: Stable Final Diagnosis/Problems List Acute on Chronic Hypoxic Respiratory Failure secondary to Acute COPD exacerbation and Pneumonia Acute metabolic/hypoxic encephalopathy likely due to COPD exacerbation Anisocoria Chronic HFrEF, current not in exacerbation Acute hypoxic respiratory failure likely due to COPD exacerbation/PNA s/p tracheostomy Sepsis likely due to pneumonia Gram-positive, Gram-negative, aspiration Cachexia Slow transit constipation Severe protein malnutrition PAMELA likely hemodynamically mediated/VMN Hematuria Hypocalcemia Hypokalemia Hypophosphatemia Hyponatremia Thrombocytopenia Normocytic anemia Discharge Disposition: Acute Care Facility Discharge Instruct/Medications Follow Up/Referral: Per [facility] Medications: Per EMR Scheduled Beclomethasone Dipropionate (Qvar Redihaler), 1 PUFF INH BID, (Reported) Prednisone (Prednisone), 20 MG PO DAILY Umeclidinium [place] (Incruse Ellipta), 1 PUFF INH DAILYPRN, (Reported) Scheduled PRN Pantoprazole Sodium Sesquihydr (Protonix), 40 MG PO DAILY PRN Discharge Statement: "Patient was advised to return to the ER or call 911 if any headaches, dizziness, shortness of breath, chest pain, abdominal pain, bleeding, fevers, or worsening of medical condition. Patient was counseled about treatment plan, medications, possible side effects, patientverbalized understanding. All questions were answered to the best of my ability. This discharge took greater then 30 minutes in planning, reviewing documentation, counseling the patient, and discussing with other team members." ASSESSMENT ASSESSMENT Assessment GRACE LOPEZ RESIDENT Apr 29, 2025 10:26
--- NOTE | 2025-04-29 11:59 | DVHPN2 ---
Progress Note - Dictate Date Seen: Apr 29, 2025 Medical Necessity Reason Pt with a Central, PICC or Fol: Yes The following are medically ne: PICC Line, Chin Catheter Subjective No complaints Patient is on a trach collar at 40% Hemoglobin is stable at 8, repeat stool for occult blood was negative Patient had evidence of UTI and is on antibiotics Two bowel movements recorded vital signs Vital Sign Date Time Temp Pulse Resp B/P (MAP) Pulse Ox O2 Delivery O2 Flow Rate FiO2 04/29/25 09:30 104 19 104/47 (66) 98 04/29/25 09:25 Trach Collar 10.0 04/29/25 09:25 40 40 04/29/25 07:00 97.6 97.6 Total Intake and Output 04/28/25 04/28/25 04/29/25 15:00 23:00 07:00 Intake Total 1072 ml 500 ml Output Total 300 ml 350 ml Balance 772 ml 150 ml medications Current Medications Medications Dose Ordered Sig/Guy Route Start Time Stop Time Status Last Admin Dose Admin Norepinephrine Bitartrate 250 ml @ 3.75 mls/hr Q24H IV 04/03/25 10:00 UNV Fat Emulsion Intravenous 50 ml/ Sodium Chloride 40 meq/Potassium Chloride 20 meq/ Potassium Phosphate 44 meq/ Calcium Gluconate 2.3 meq/Magnesium Sulfate 8 meq/ Multivitamins 10 ml/Chromium/ Copper/Manganese/ Zinc 1 ml/Amino Acids/Dextrose/ Purified Water 1,047.9462 ml @ 44 mls/hr [id number] IV 04/06/25 22:00 04/06/25 22:00 Cancel Sodium Chloride 10 ml QSHIFT@10,22 IV 04/09/25 22:00 04/29/25 10:42 10 ML Vancomycin HCl 0 ml @ 0 mls/hr PER PHARMACY IV 04/16/25 12:15 Cancel Ipratropium [place] 0.5 mg Q6HR NEB 04/16/25 18:00 04/29/25 06:49 0.5 MG Levalbuterol HCl 1.25 mg Q6HR NEB 04/16/25 18:00 04/29/25 06:49 1.25 MG Midazolam HCl 100 ml @ 1 mls/hr Q24H IV 04/22/25 15:45 Fentanyl Citrate 250 ml @ 2.5 mls/hr Q24H IV 04/22/25 15:45 04/25/25 11:25 7.5 MLS/HR Pantoprazole Sodium 40 mg DAILY IV 04/22/25 17:51 04/29/25 10:42 40 MG Meropenem 50 ml @ 17 mls/hr Q8HR IV 04/23/25 14:00 UNV Purified Water 200 ml Q6HR GT 04/23/25 18:00 04/29/25 05:53 200 ML Meropenem 50 ml @ 17 mls/hr Q12H IV 04/23/25 23:00 04/29/25 10:42 17 MLS/HR Acetaminophen 650 mg Q4HP PRN GT 04/26/25 17:00 04/29/25 02:27 650 MG Voriconazole 160 mg/Dextrose 266 ml @ 133 mls/hr Q12HR IV 04/28/25 22:00 04/28/25 22:08 133 MLS/HR Morphine Sulfate 1 mg Q4HP PRN IV 04/27/25 18:15 Enteral Nutritional Formula 1,000 ml 50ML/HR GT 04/29/25 09:45 objective General: Female patient, afebrile, palor, mucosae are moist Cardiovascular: Regular S1 and S2. No murmurs, gallops or rubs. No JVD elevation. No pedal edema Respiratory: On Tracheostomy Mechanical ventilation Abdomen: Soft, nontender, nondistended, normoactive bowel sounds, no rebound tenderness, no organomegaly, no masses laboratory and microbiology Laboratory Tests 04/29/25 03:10 Test 04/29/25 03:10 Range/Units Serum Glucose 124 H 74-106 mg/dL Problems(with codes): (1) Pneumonia, unspecified organism (2) COPD with acute exacerbation (3) Elevated liver enzymes (4) Leukocytosis, unspecified Prognosis Plan There was a tentative plan for a possible EGD with PEG tube today this will be put on hold Since the patient is now on a trach collar possibly she could undergo swallow evaluation in the next 24-48 hours I was notified by the nurse that the patient has been accepted at [facility] and she is being discharge from this facility and will be transferred to [facility] this evening Once again thank you for allowing me to participate in the care of this patient Dietary Evaluation Review Comments: 1) If patient remains NPO > 7 days, consider EN/TPN to meet at least 75% estimated daily needs 2) If gut is preferred, initiate Vital High Protein @ 40 mL/hr goal rate as tolerated. Flush with 50 mL free H2O Q6H. EN regimen will provide 960 kcals, 84g Pro, and 1003 mL free H2O (including TF flushes) per 24 hrs. Goal rate will meet ~ 95% estimated energy needs and ~ 93% estimated protein needs 3) Advance to cardiac diet when medically feasible, pending ST approval 4) Refer to outpatient RD for weight management 5) Follow-up with cardiology and pulmonology 6) Continue to monitor I&O, labs, and skin integrity Expected Outcomes/Goals: 1) patient to receive nutritional support within 7 days of NPO status 2) labs to improve 3) diet to advance 4) gradual wt gain 5) f/u in 2-3 days Plan discussed with: Other (ICU Nurse) IZZY FLORES MD Apr 29, 2025 11:58
--- NOTE | 2025-04-29 14:46 | DVHPN2 ---
Consult Progress Note Date Seen: Apr 29, 2025 Objective vital signs Vital Sign Date Time Temp Pulse Resp B/P (MAP) Pulse Ox O2 Delivery O2 Flow Rate FiO2 04/29/25 09:30 104 19 104/47 (66) 98 04/29/25 09:25 Trach Collar 10.0 04/29/25 09:25 40 40 04/29/25 07:00 97.6 97.6 Total Intake and Output 04/28/25 04/28/25 04/29/25 15:00 23:00 07:00 Intake Total 1072 ml 500 ml Output Total 300 ml 350 ml Balance 772 ml 150 ml medications Current Medications Medications Dose Ordered Sig/Guy Route Start Time Stop Time Status Last Admin Dose Admin Norepinephrine Bitartrate 250 ml @ 3.75 mls/hr Q24H IV 04/03/25 10:00 UNV Fat Emulsion Intravenous 50 ml/ Sodium Chloride 40 meq/Potassium Chloride 20 meq/ Potassium Phosphate 44 meq/ Calcium Gluconate 2.3 meq/Magnesium Sulfate 8 meq/ Multivitamins 10 ml/Chromium/ Copper/Manganese/ Zinc 1 ml/Amino Acids/Dextrose/ Purified Water 1,047.9462 ml @ 44 mls/hr [id number] IV 04/06/25 22:00 04/06/25 22:00 Cancel Sodium Chloride 10 ml QSHIFT@10,22 IV 04/09/25 22:00 04/29/25 10:42 10 ML Vancomycin HCl 0 ml @ 0 mls/hr PER PHARMACY IV 04/16/25 12:15 Cancel Ipratropium [place] 0.5 mg Q6HR NEB 04/16/25 18:00 04/29/25 06:49 0.5 MG Levalbuterol HCl 1.25 mg Q6HR NEB 04/16/25 18:00 04/29/25 06:49 1.25 MG Midazolam HCl 100 ml @ 1 mls/hr Q24H IV 04/22/25 15:45 Fentanyl Citrate 250 ml @ 2.5 mls/hr Q24H IV 04/22/25 15:45 04/25/25 11:25 7.5 MLS/HR Pantoprazole Sodium 40 mg DAILY IV 04/22/25 17:51 04/29/25 10:42 40 MG Meropenem 50 ml @ 17 mls/hr Q8HR IV 04/23/25 14:00 UNV Purified Water 200 ml Q6HR GT 04/23/25 18:00 04/29/25 12:23 200 ML Meropenem 50 ml @ 17 mls/hr Q12H IV 04/23/25 23:00 04/29/25 10:42 17 MLS/HR Acetaminophen 650 mg Q4HP PRN GT 04/26/25 17:00 04/29/25 02:27 650 MG Voriconazole 160 mg/Dextrose 266 ml @ 133 mls/hr Q12HR IV 04/28/25 22:00 04/29/25 12:23 133 MLS/HR Morphine Sulfate 1 mg Q4HP PRN IV 04/27/25 18:15 Enteral Nutritional Formula 1,000 ml 50ML/HR GT 04/29/25 09:45 laboratory and microbiology Laboratory Tests 04/29/25 03:10 Test 04/29/25 03:10 Range/Units Serum Glucose 124 H 74-106 mg/dL Problem List/Assessment/Plan Problem List/Assessment/Plan ASSESSMENT AND PLAN: ID Problem List: -Community-acquired pneumonia (CXR: patchy right > left opacities) -Septic shock (ICU transfer in the setting of pneumonia; BP 94/54 noted) -Acute on chronic respiratory failure with hypercapnia (pH 7.35, pCO2 83.1) requiring mechanical ventilation -Suspected COPD exacerbation related to pneumonia -Prolonged QTc (503 ms) fluoroquinolones avoided -Penicillin allergy (unknown reaction, since 2021) -Leukocytosis (WBC 22.5 K/L) -Anemia (Hgb 9.7 g/dL) -Hyponatremia (Na 133 mmol/L) -History of CHF, GERD, anxiety, hypertension, hyperlipidemia; chronic hypotension noted Assessment This is a 59 y.o. female with a past medical history of CHF, anxiety, COPD, GERD, hypertension, hyperlipidemia, and chronic hypotension who presents with shortness of breath and hypoxemia (desaturation to 70% on 6 L NC). ED CXR showed patchy right greater than left opacities favoring infection; admitted for pneumonia. Transferred to ICU for septic shock in the setting of pneumonia. Viral testing (influenza A/B, COVID-19) negative. UA without growth. Blood cultures no growth to date (04/05). ABG with hypercapnia (pH 7.35, pCO2 83.1). BNP 38.81. EKG with QTc 503 ms. Preliminary sputum culture with rare filamentous fungi (awaiting further results). The clinical picture is consistent with pneumonia with concurrent COPD exacerbation and hypercapnic respiratory failure requiring mechanical ventilation. 04/05: CXR with improved pneumonia, persistent fevers, improved levophed 04/06: prolonged qtc , fungi filamentous on bronchial wash 04/14: sp 7 days doxycycline, mrsa nares negative, can stop doxycycline 04/17: worsening leukocytosis, stool blood positive hb 6.8 04/23: sp 7 days course of vancomycin, off pressors on minimal vent, no evidence of MRSA infection, would stop 04/28: fluconazole switched to voriconazole 04/29: steroids weaned, leukocytosis improved, aspergillus growth on culture Plan: - defer to gi and primary team for anemia workup - given fungal pneumonia, consider downtitration of steroid therapy, defer to pulmonology and mental health orderly team -Antimicrobials: -stop meropenem - continue voriconazole for aspergillus pneumonia. anticipate 6 months course with need to check voriconazole levels and EKG for qtc in 5 days. -Avoid fluoroquinolones due to prolonged QTc. -Follow up sputum culture results; adjust therapy per susceptibilities. -Follow up blood cultures; currently no growth to date (04/05). -Respiratory: -Mechanical ventilation management per mental health orderly team; current settings documented below. -Wean as tolerated to high-flow nasal cannula when appropriate. -COPD therapies per pulmonology: bronchodilators, systemic steroids, mucolytics. -Monitoring: -Monitor temperature curve; if persistent fevers, reassess antimicrobial coverage. -Repeat chest X-ray daily. -Maintain MAP > 65 mmHg; titrate vasoactive support as needed. -Monitor QTc; continue to avoid QT-prolonging agents where feasible. 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 -Diagnostics: -Recommend sputum culture (pending/follow-up). -Continue to monitor labs (CBC, BMP, lactate) and ABGs as clinically indicated. Authorized and Performed by: Gordon Coley Total critical care time: Approximately 76 minutes Due to a high probability of clinically significant, life threatening deterioration, the patient required my highest level of preparedness to intervene emergently and I personally spent this critical care time directly and personally managing the patient. This critical care time included obtaining a history; examining the patient; pulse oximetry; ordering and review of studies; arranging urgent treatment with development of a management plan; evaluation of patient's response to treatment; frequent reassessment; and, discussions with other providers. This critical care time was performed to assess and manage the high probability of imminent, life-threatening deterioration that could result in multi-organ failure. It was exclusive of separately billable procedures and treating other patients and teaching time. Isolation Precautions: Not provided in transcript. \ Physical Exam: General: NAD Neck: Supple. No masses. HEENT: PERRL. Normal lids and conjunctiva. Moist mucous membranes. Oropharynx without lesions, exudates or excessive erythema. Normal appearance of the external aspects of the nose and ears. Heart: Regular rhythm, normal rate. No murmur. No lower extremity edema. Lungs: Normal respiratory effort. Clear to auscultation bilaterally. Wheezes present. Patient is mechanically ventilated. Abdomen: Soft. Non-tender. Non-distended. No masses or abdominal hernia. Msk: No digital cyanosis. Normal strength and tone in all 4 limbs Skin: Warm and dry, no rashes. Neuro: Alert. No facial droop or slurred speech. Extra-ocular movements intact. Sensation intact to soft touch in all 4 limbs. Psych: Appropriate mood. Full affect. Oriented to person, place, time, and situation. Dietary Evaluation Review Comments: 1) If patient remains NPO > 7 days, consider EN/TPN to meet at least 75% estimated daily needs 2) If gut is preferred, initiate Vital High Protein @ 40 mL/hr goal rate as tolerated. Flush with 50 mL free H2O Q6H. EN regimen will provide 960 kcals, 84g Pro, and 1003 mL free H2O (including TF flushes) per 24 hrs. Goal rate will meet ~ 95% estimated energy needs and ~ 93% estimated protein needs 3) Advance to cardiac diet when medically feasible, pending ST approval 4) Refer to outpatient RD for weight management 5) Follow-up with cardiology and pulmonology 6) Continue to monitor I&O, labs, and skin integrity Expected Outcomes/Goals: 1) patient to receive nutritional support within 7 days of NPO status 2) labs to improve 3) diet to advance 4) gradual wt gain 5) f/u in 2-3 days GORDON COLEY MD Apr 29, 2025 14:46
--- NOTE | 2025-04-29 14:46 | DVHPN2 ---
Consult Progress Note Objective vital signs Vital Sign Date Time Temp Pulse Resp B/P (MAP) Pulse Ox O2 Delivery O2 Flow Rate FiO2 04/29/25 09:30 104 19 104/47 (66) 98 04/29/25 09:25 Trach Collar 10.0 04/29/25 09:25 40 40 04/29/25 07:00 97.6 97.6 Total Intake and Output 04/28/25 04/28/25 04/29/25 15:00 23:00 07:00 Intake Total 1072 ml 500 ml Output Total 300 ml 350 ml Balance 772 ml 150 ml medications Current Medications Medications Dose Ordered Sig/Guy Route Start Time Stop Time Status Last Admin Dose Admin Norepinephrine Bitartrate 250 ml @ 3.75 mls/hr Q24H IV 04/03/25 10:00 UNV Fat Emulsion Intravenous 50 ml/ Sodium Chloride 40 meq/Potassium Chloride 20 meq/ Potassium Phosphate 44 meq/ Calcium Gluconate 2.3 meq/Magnesium Sulfate 8 meq/ Multivitamins 10 ml/Chromium/ Copper/Manganese/ Zinc 1 ml/Amino Acids/Dextrose/ Purified Water 1,047.9462 ml @ 44 mls/hr [id number] IV 04/06/25 22:00 04/06/25 22:00 Cancel Sodium Chloride 10 ml QSHIFT@10,22 IV 04/09/25 22:00 04/29/25 10:42 10 ML Vancomycin HCl 0 ml @ 0 mls/hr PER PHARMACY IV 04/16/25 12:15 Cancel Ipratropium [place] 0.5 mg Q6HR NEB 04/16/25 18:00 04/29/25 06:49 0.5 MG Levalbuterol HCl 1.25 mg Q6HR NEB 04/16/25 18:00 04/29/25 06:49 1.25 MG Midazolam HCl 100 ml @ 1 mls/hr Q24H IV 04/22/25 15:45 Fentanyl Citrate 250 ml @ 2.5 mls/hr Q24H IV 04/22/25 15:45 04/25/25 11:25 7.5 MLS/HR Pantoprazole Sodium 40 mg DAILY IV 04/22/25 17:51 04/29/25 10:42 40 MG Meropenem 50 ml @ 17 mls/hr Q8HR IV 04/23/25 14:00 UNV Purified Water 200 ml Q6HR GT 04/23/25 18:00 04/29/25 12:23 200 ML Meropenem 50 ml @ 17 mls/hr Q12H IV 04/23/25 23:00 04/29/25 10:42 17 MLS/HR Acetaminophen 650 mg Q4HP PRN GT 04/26/25 17:00 04/29/25 02:27 650 MG Voriconazole 160 mg/Dextrose 266 ml @ 133 mls/hr Q12HR IV 04/28/25 22:00 04/29/25 12:23 133 MLS/HR Morphine Sulfate 1 mg Q4HP PRN IV 04/27/25 18:15 Enteral Nutritional Formula 1,000 ml 50ML/HR GT 04/29/25 09:45 laboratory and microbiology Laboratory Tests 04/29/25 03:10 Test 04/29/25 03:10 Range/Units Serum Glucose 124 H 74-106 mg/dL Problem List/Assessment/Plan Problem List/Assessment/Plan Today's Encounter Date: 04/06/2025 Patient Name: Pao Provider: Gordon Coley ASSESSMENT AND PLAN: ID Problem List: -Community-acquired pneumonia (CXR: patchy right > left opacities) -Septic shock (ICU transfer in the setting of pneumonia; BP 94/54 noted) -Acute on chronic respiratory failure with hypercapnia (pH 7.35, pCO2 83.1) requiring mechanical ventilation -Suspected COPD exacerbation related to pneumonia -Prolonged QTc (503 ms) fluoroquinolones avoided -Penicillin allergy (unknown reaction, since 2021) -Leukocytosis (WBC 22.5 K/L) -Anemia (Hgb 9.7 g/dL) -Hyponatremia (Na 133 mmol/L) -History of CHF, GERD, anxiety, hypertension, hyperlipidemia; chronic hypotension noted Assessment This is a 59 y.o. female with a past medical history of CHF, anxiety, COPD, GERD, hypertension, hyperlipidemia, and chronic hypotension who presents with shortness of breath and hypoxemia (desaturation to 70% on 6 L NC). ED CXR showed patchy right greater than left opacities favoring infection; admitted for pneumonia. Transferred to ICU for septic shock in the setting of pneumonia. Viral testing (influenza A/B, COVID-19) negative. UA without growth. Blood cultures no growth to date (04/05). ABG with hypercapnia (pH 7.35, pCO2 83.1). BNP 38.81. EKG with QTc 503 ms. Preliminary sputum culture with rare filamentous fungi (awaiting further results). The clinical picture is consistent with pneumonia with concurrent COPD exacerbation and hypercapnic respiratory failure requiring mechanical ventilation. 04/05: CXR with improved pneumonia, persistent fevers, improved levophed 04/06: prolonged qtc , fungi filamentous on cxr Plan: -Antimicrobials: -stop azithromycin and flagyl, swich to cefepime and doxycycline -start micafungin - test for cocci and aspergillus - agree with chest CT -Avoid fluoroquinolones due to prolonged QTc. -Follow up sputum culture results; adjust therapy per susceptibilities. -Follow up blood cultures; currently no growth to date (04/05). -Respiratory: -Mechanical ventilation management per skilled nursing facility counselor team; current settings documented below. -Wean as tolerated to high-flow nasal cannula when appropriate. -COPD therapies per pulmonology: bronchodilators, systemic steroids, mucolytics. -Monitoring: -Monitor temperature curve; if persistent fevers, reassess antimicrobial coverage. -Repeat chest X-ray daily. -Maintain MAP > 65 mmHg; titrate vasoactive support as needed. -Monitor QTc; continue to avoid QT-prolonging agents where feasible. 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 -Diagnostics: -Recommend sputum culture (pending/follow-up). -Continue to monitor labs (CBC, BMP, lactate) and ABGs as clinically indicated. Authorized and Performed by: Gordon Coley Total critical care time: Approximately 76 minutes Due to a high probability of clinically significant, life threatening deterioration, the patient required my highest level of preparedness to intervene emergently and I personally spent this critical care time directly and personally managing the patient. This critical care time included obtaining a history; examining the patient; pulse oximetry; ordering and review of studies; arranging urgent treatment with development of a management plan; evaluation of patient's response to treatment; frequent reassessment; and, discussions with other providers. This critical care time was performed to assess and manage the high probability of imminent, life-threatening deterioration that could result in multi-organ failure. It was exclusive of separately billable procedures and treating other patients and teaching time. Isolation Precautions: Not provided in transcript. \ Physical Exam: General: NAD Neck: Supple. No masses. HEENT: PERRL. Normal lids and conjunctiva. Moist mucous membranes. Oropharynx without lesions, exudates or excessive erythema. Normal appearance of the external aspects of the nose and ears. Heart: Regular rhythm, normal rate. No murmur. No lower extremity edema. Lungs: Normal respiratory effort. Clear to auscultation bilaterally. Wheezes present. Patient is mechanically ventilated. Abdomen: Soft. Non-tender. Non-distended. No masses or abdominal hernia. Msk: No digital cyanosis. Normal strength and tone in all 4 limbs Skin: Warm and dry, no rashes. Neuro: Alert. No facial droop or slurred speech. Extra-ocular movements intact. Sensation intact to soft touch in all 4 limbs. Psych: Appropriate mood. Full affect. Oriented to person, place, time, and situation. Dietary Evaluation Review Comments: 1) If patient remains NPO > 7 days, consider EN/TPN to meet at least 75% estimated daily needs 2) If gut is preferred, initiate Vital High Protein @ 40 mL/hr goal rate as tolerated. Flush with 50 mL free H2O Q6H. EN regimen will provide 960 kcals, 84g Pro, and 1003 mL free H2O (including TF flushes) per 24 hrs. Goal rate will meet ~ 95% estimated energy needs and ~ 93% estimated protein needs 3) Advance to cardiac diet when medically feasible, pending ST approval 4) Refer to outpatient RD for weight management 5) Follow-up with cardiology and pulmonology 6) Continue to monitor I&O, labs, and skin integrity Expected Outcomes/Goals: 1) patient to receive nutritional support within 7 days of NPO status 2) labs to improve 3) diet to advance 4) gradual wt gain 5) f/u in 2-3 days GORDON COLEY MD Apr 29, 2025 14:46
--- NOTE | 2025-04-29 14:46 | DVHPN2 ---
Consult Progress Note Objective vital signs Vital Sign Date Time Temp Pulse Resp B/P (MAP) Pulse Ox O2 Delivery O2 Flow Rate FiO2 04/29/25 09:30 104 19 104/47 (66) 98 04/29/25 09:25 Trach Collar 10.0 04/29/25 09:25 40 40 04/29/25 07:00 97.6 97.6 Total Intake and Output 04/28/25 04/28/25 04/29/25 15:00 23:00 07:00 Intake Total 1072 ml 500 ml Output Total 300 ml 350 ml Balance 772 ml 150 ml medications Current Medications Medications Dose Ordered Sig/Guy Route Start Time Stop Time Status Last Admin Dose Admin Norepinephrine Bitartrate 250 ml @ 3.75 mls/hr Q24H IV 04/03/25 10:00 UNV Fat Emulsion Intravenous 50 ml/ Sodium Chloride 40 meq/Potassium Chloride 20 meq/ Potassium Phosphate 44 meq/ Calcium Gluconate 2.3 meq/Magnesium Sulfate 8 meq/ Multivitamins 10 ml/Chromium/ Copper/Manganese/ Zinc 1 ml/Amino Acids/Dextrose/ Purified Water 1,047.9462 ml @ 44 mls/hr [id number] IV 04/06/25 22:00 04/06/25 22:00 Cancel Sodium Chloride 10 ml QSHIFT@10,22 IV 04/09/25 22:00 04/29/25 10:42 10 ML Vancomycin HCl 0 ml @ 0 mls/hr PER PHARMACY IV 04/16/25 12:15 Cancel Ipratropium [place] 0.5 mg Q6HR NEB 04/16/25 18:00 04/29/25 06:49 0.5 MG Levalbuterol HCl 1.25 mg Q6HR NEB 04/16/25 18:00 04/29/25 06:49 1.25 MG Midazolam HCl 100 ml @ 1 mls/hr Q24H IV 04/22/25 15:45 Fentanyl Citrate 250 ml @ 2.5 mls/hr Q24H IV 04/22/25 15:45 04/25/25 11:25 7.5 MLS/HR Pantoprazole Sodium 40 mg DAILY IV 04/22/25 17:51 04/29/25 10:42 40 MG Meropenem 50 ml @ 17 mls/hr Q8HR IV 04/23/25 14:00 UNV Purified Water 200 ml Q6HR GT 04/23/25 18:00 04/29/25 12:23 200 ML Meropenem 50 ml @ 17 mls/hr Q12H IV 04/23/25 23:00 04/29/25 10:42 17 MLS/HR Acetaminophen 650 mg Q4HP PRN GT 04/26/25 17:00 04/29/25 02:27 650 MG Voriconazole 160 mg/Dextrose 266 ml @ 133 mls/hr Q12HR IV 04/28/25 22:00 04/29/25 12:23 133 MLS/HR Morphine Sulfate 1 mg Q4HP PRN IV 04/27/25 18:15 Enteral Nutritional Formula 1,000 ml 50ML/HR GT 04/29/25 09:45 laboratory and microbiology Laboratory Tests 04/29/25 03:10 Test 04/29/25 03:10 Range/Units Serum Glucose 124 H 74-106 mg/dL Problem List/Assessment/Plan Problem List/Assessment/Plan ASSESSMENT AND PLAN: ID Problem List: -Community-acquired pneumonia (CXR: patchy right > left opacities) -Septic shock (ICU transfer in the setting of pneumonia; BP 94/54 noted) -Acute on chronic respiratory failure with hypercapnia (pH 7.35, pCO2 83.1) requiring mechanical ventilation -Suspected COPD exacerbation related to pneumonia -Prolonged QTc (503 ms) fluoroquinolones avoided -Penicillin allergy (unknown reaction, since 2021) -Leukocytosis (WBC 22.5 K/L) -Anemia (Hgb 9.7 g/dL) -Hyponatremia (Na 133 mmol/L) -History of CHF, GERD, anxiety, hypertension, hyperlipidemia; chronic hypotension noted Assessment This is a 59 y.o. female with a past medical history of CHF, anxiety, COPD, GERD, hypertension, hyperlipidemia, and chronic hypotension who presents with shortness of breath and hypoxemia (desaturation to 70% on 6 L NC). ED CXR showed patchy right greater than left opacities favoring infection; admitted for pneumonia. Transferred to ICU for septic shock in the setting of pneumonia. Viral testing (influenza A/B, COVID-19) negative. UA without growth. Blood cultures no growth to date (04/05). ABG with hypercapnia (pH 7.35, pCO2 83.1). BNP 38.81. EKG with QTc 503 ms. Preliminary sputum culture with rare filamentous fungi (awaiting further results). The clinical picture is consistent with pneumonia with concurrent COPD exacerbation and hypercapnic respiratory failure requiring mechanical ventilation. 04/05: CXR with improved pneumonia, persistent fevers, improved levophed 04/06: prolonged qtc , fungi filamentous on bronchial wash 04/14: sp 7 days doxycycline, mrsa nares negative, can stop doxycycline 04/17: worsening leukocytosis, stool blood positive hb 6.8 04/23: sp 7 days course of vancomycin, off pressors on minimal vent, no evidence of MRSA infection, would stop Plan: - defer to gi and primary team for anemia workup - given fungal pneumonia, consider downtitration of steroid therapy, defer to pulmonology and brush loader and handle attacher team -Antimicrobials: -stop vancomycin, continue meropenem - continue fluconazole for filamentous fungi. will fu on speciation and sensitivities -Avoid fluoroquinolones due to prolonged QTc. -Follow up sputum culture results; adjust therapy per susceptibilities. -Follow up blood cultures; currently no growth to date (04/05). -Respiratory: -Mechanical ventilation management per brush loader and handle attacher team; current settings documented below. -Wean as tolerated to high-flow nasal cannula when appropriate. -COPD therapies per pulmonology: bronchodilators, systemic steroids, mucolytics. -Monitoring: -Monitor temperature curve; if persistent fevers, reassess antimicrobial coverage. -Repeat chest X-ray daily. -Maintain MAP > 65 mmHg; titrate vasoactive support as needed. -Monitor QTc; continue to avoid QT-prolonging agents where feasible. 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 -Diagnostics: -Recommend sputum culture (pending/follow-up). -Continue to monitor labs (CBC, BMP, lactate) and ABGs as clinically indicated. Authorized and Performed by: Gordon Coley Total critical care time: Approximately 76 minutes Due to a high probability of clinically significant, life threatening deterioration, the patient required my highest level of preparedness to intervene emergently and I personally spent this critical care time directly and personally managing the patient. This critical care time included obtaining a history; examining the patient; pulse oximetry; ordering and review of studies; arranging urgent treatment with development of a management plan; evaluation of patient's response to treatment; frequent reassessment; and, discussions with other providers. This critical care time was performed to assess and manage the high probability of imminent, life-threatening deterioration that could result in multi-organ failure. It was exclusive of separately billable procedures and treating other patients and teaching time. Isolation Precautions: Not provided in transcript. \ Physical Exam: General: NAD Neck: Supple. No masses. HEENT: PERRL. Normal lids and conjunctiva. Moist mucous membranes. Oropharynx without lesions, exudates or excessive erythema. Normal appearance of the external aspects of the nose and ears. Heart: Regular rhythm, normal rate. No murmur. No lower extremity edema. Lungs: Normal respiratory effort. Clear to auscultation bilaterally. Wheezes present. Patient is mechanically ventilated. Abdomen: Soft. Non-tender. Non-distended. No masses or abdominal hernia. Msk: No digital cyanosis. Normal strength and tone in all 4 limbs Skin: Warm and dry, no rashes. Neuro: Alert. No facial droop or slurred speech. Extra-ocular movements intact. Sensation intact to soft touch in all 4 limbs. Psych: Appropriate mood. Full affect. Oriented to person, place, time, and situation. Dietary Evaluation Review Comments: 1) If patient remains NPO > 7 days, consider EN/TPN to meet at least 75% estimated daily needs 2) If gut is preferred, initiate Vital High Protein @ 40 mL/hr goal rate as tolerated. Flush with 50 mL free H2O Q6H. EN regimen will provide 960 kcals, 84g Pro, and 1003 mL free H2O (including TF flushes) per 24 hrs. Goal rate will meet ~ 95% estimated energy needs and ~ 93% estimated protein needs 3) Advance to cardiac diet when medically feasible, pending ST approval 4) Refer to outpatient RD for weight management 5) Follow-up with cardiology and pulmonology 6) Continue to monitor I&O, labs, and skin integrity Expected Outcomes/Goals: 1) patient to receive nutritional support within 7 days of NPO status 2) labs to improve 3) diet to advance 4) gradual wt gain 5) f/u in 2-3 days GORDON COLEY MD Apr 29, 2025 14:45
[2025-04-29] MEDS ORDERED: ALBUMIN 25% 50 ML IV ONE (15:30)
[2025-04-29] MEDS ORDERED: SODIUM CHLORIDE 0.9% 250 ML IV ONE (15:30)
[2025-04-29] MEDS: SODIUM CHLORIDE 0.9% 250 ML IV ONE (16:04)
[2025-04-29] MEDS: ALBUMIN 25% 100 ML IV ONE (16:06)
[2025-04-29] MEDS ORDERED: NOREPINEPHRINE 8 MG/250ML KIT 250 ML IV ONE (20:14)
[2025-04-29] MEDS ORDERED: NOREPINEPHRINE 8 MG/250ML KIT 250 ML IV SCH (20:15)
== END 2025-04-29 20:20 | DRG 5 ==
LOC: ER 19:30 → EDBD 19:30 → OVERFLOW 23:56 → ICU CENTRL 04-04 15:57 → OVERFLOW 04-04 16:38 → ICU CENTRL 04-05 08:34 → TELE-CENTR 04-14 16:21 → ICU CENTRL 04-15 20:32
PROVIDERS: ADMIT Emergency Medicine; ATTEND Emergency Medicine
PROC: 0BH17EZ Insertion of Endotracheal Airway into Trachea, Via Natural or Artificial Opening (ICD-10-PCS; 2025-04-03)
PROC: 5A1955Z Respiratory Ventilation, Greater than 96 Consecutive Hours (ICD-10-PCS; 2025-04-03)
PROC: 06HY33Z Insertion of Infusion Device into Lower Vein, Percutaneous Approach (ICD-10-PCS; 2025-04-03)
PROC: 02HV33Z Insertion of Infusion Device into Superior Vena Cava, Percutaneous Approach (ICD-10-PCS; 2025-04-05)
PROC: B548ZZA Ultrasonography of Superior Vena Cava, Guidance (ICD-10-PCS; 2025-04-05)
PROC: 02HV33Z Insertion of Infusion Device into Superior Vena Cava, Percutaneous Approach (ICD-10-PCS; 2025-04-09)
PROC: B548ZZA Ultrasonography of Superior Vena Cava, Guidance (ICD-10-PCS; 2025-04-09)
PROC: 5A1955Z Respiratory Ventilation, Greater than 96 Consecutive Hours (ICD-10-PCS; principal; 2025-04-15)
PROC: 30233N1 Transfusion of Nonautologous Red Blood Cells into Peripheral Vein, Percutaneous Approach (ICD-10-PCS; 2025-04-17)
PROC: 0B110F4 Bypass Trachea to Cutaneous with Tracheostomy Device, Open Approach (ICD-10-PCS; 2025-04-24)
PROC: 30233R1 Transfusion of Nonautologous Platelets into Peripheral Vein, Percutaneous Approach (ICD-10-PCS; 2025-04-24)
DX: A41.59 Other Gram-negative sepsis (principal); R65.21 Severe sepsis with septic shock; N17.0 Acute kidney failure with tubular necrosis; G93.1 Anoxic brain damage, not elsewhere classified; G92.8 Other toxic encephalopathy; J15.69 Pneumonia due to other Gram-negative bacteria; E87.4 Mixed disorder of acid-base balance; J69.0 Pneumonitis due to inhalation of food and vomit; E43 Unspecified severe protein-calorie malnutrition; D69.6 Thrombocytopenia, unspecified; J44.0 Chronic obstructive pulmonary disease with (acute) lower respiratory infection; J15.9 Unspecified bacterial pneumonia; J96.22 Acute and chronic respiratory failure with hypercapnia; J96.21 Acute and chronic respiratory failure with hypoxia; Z99.11 Dependence on respirator [ventilator] status; K92.1 Melena; D63.8 Anemia in other chronic diseases classified elsewhere; I11.0 Hypertensive heart disease with heart failure; E83.39 Other disorders of phosphorus metabolism; R64 Cachexia; J44.1 Chronic obstructive pulmonary disease with (acute) exacerbation; Z20.822 Contact with and (suspected) exposure to COVID-19; R74.8 Abnormal levels of other serum enzymes; H57.02 Anisocoria; E87.1 Hypo-osmolality and hyponatremia; J98.11 Atelectasis; E83.51 Hypocalcemia; D64.9 Anemia, unspecified; E78.5 Hyperlipidemia, unspecified; F41.9 Anxiety disorder, unspecified; K21.9 Gastro-esophageal reflux disease without esophagitis; I95.89 Other hypotension; R94.31 Abnormal electrocardiogram [ECG] [EKG]; K59.01 Slow transit constipation; I50.42 Chronic combined systolic (congestive) and diastolic (congestive) heart failure; E87.6 Hypokalemia; D50.9 Iron deficiency anemia, unspecified; J43.9 Emphysema, unspecified; Z88.0 Allergy status to penicillin; Z81.8 Family history of other mental and behavioral disorders; Z82.49 Family history of ischemic heart disease and other diseases of the circulatory system; Z83.3 Family history of diabetes mellitus; Z68.1 Body mass index [BMI] 19.9 or less, adult; Z99.81 Dependence on supplemental oxygen; Z87.891 Personal history of nicotine dependence
CPT/HCPCS: 36415; 36556; 36569; 36600; 70450; 71045; 71250; 74018; 76937; 80048; 80053; 80202; 80307; 80320; 81001; 82270; 82565; 82805; 82962; 83036; 83540; 83550; 83605; 83690; 83735; 83880; 84100; 84478; 84484; 85007; 85014; 85018; 85025; 85027; 85049; 85379; 85610; 85730; 86850; 86900; 86901; 86920; 87040; 87045; 87070; 87081; 87205; 87426; 87427; 87804; 93005; 93306; 93970; 94002; 94003; 94640; 96365; 96375; 99291; G0378; J0692; J1450; J1815; J2185; J2248; J2405; J2470; J3465; J3480; J3490; J7060; J7131; P9047